=== PATIENT | female | born 1945 | race Caucasian/White ===

== ENCOUNTER 2017-12-26 09:04 | Outpatient (RCR) | payer MEDICARE, OTHER, SELFPAY ==
[2017-12-26 09:17] LABS: Prothrombin Time Fingerstick 46.8 SEC (11.9-14.4)
[2017-12-26 10:25] LABS: International Normalized Ratio 3.4
== END 2017-12-26 09:25 | disposition home or self-care (01) ==
LOC: MTLAB 09:04
PROVIDERS: Family Provider Family Medicine; PCP Family Medicine; Visit Provider Internal Medicine Cardiovascular Disease
DX: I48.0 Paroxysmal atrial fibrillation (principal); Z79.01 Long term (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 of anticoagulants
CPT/HCPCS: 36415; 36416; 85610

== ENCOUNTER 2018-01-14 11:41 | Outpatient (RCR) | payer MEDICARE, OTHER, SELFPAY ==
[2018-01-14 12:01] LABS: Prothrombin Time Fingerstick 35.3 SEC (11.9-14.4)
== END 2018-01-14 16:20 | disposition home or self-care (01) ==
LOC: MTLAB 11:41
PROVIDERS: Family Provider Family Medicine; PCP Family Medicine; Visit Provider Internal Medicine Cardiovascular Disease
DX: I48.0 Paroxysmal atrial fibrillation (principal); Z79.01 Long term (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 of anticoagulants
CPT/HCPCS: 36416; 85610

== ENCOUNTER 2018-02-10 11:22 | Outpatient (RCR) | payer MEDICARE, OTHER, SELFPAY ==
[2018-02-10 11:45] LABS: Prothrombin Time Fingerstick 41.4 SEC (11.9-14.4)
[2018-02-10 14:20] LABS: International Normalized Ratio 2.9; Prothrombin Time (Protime)PT. 30.1 SECONDS (11.7-14.9)
== END 2018-02-10 12:00 | disposition home or self-care (01) ==
LOC: MTLAB 11:22
PROVIDERS: Family Provider Family Medicine; PCP Family Medicine; Visit Provider Internal Medicine Cardiovascular Disease
DX: I48.0 Paroxysmal atrial fibrillation (principal); Z79.01 Long term (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 of anticoagulants
CPT/HCPCS: 36415; 36416; 85610

== ENCOUNTER 2018-03-14 12:59 | Outpatient (RCR) | payer MEDICARE, OTHER, SELFPAY ==
[2018-03-03 14:15] LABS: International Normalized Ratio 3.2; Prothrombin Time (Protime)PT. 32.7 SECONDS (11.7-14.9)
[2018-03-14 13:16] LABS: Prothrombin Time Fingerstick 27.6 SEC (11.9-14.4)
== END 2018-03-14 13:00 | disposition home or self-care (01) ==
LOC: MTLAB 12:59
PROVIDERS: Family Provider Family Medicine; PCP Family Medicine; Visit Provider Internal Medicine Cardiovascular Disease
DX: I48.91 Unspecified atrial fibrillation (principal); Z79.01 Long term (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 of anticoagulants
CPT/HCPCS: 36415; 36416; 85610

== ENCOUNTER 2018-04-17 14:23 | Outpatient (RCR) | payer MEDICARE, OTHER, SELFPAY ==
[2018-04-17 14:36] LABS: Prothrombin Time Fingerstick 29.4 SEC (11.9-14.4)
== END 2018-04-17 15:00 | disposition home or self-care (01) ==
LOC: MTLAB 14:23
PROVIDERS: Family Provider Family Medicine; PCP Family Medicine; Visit Provider Internal Medicine Cardiovascular Disease
DX: I48.91 Unspecified atrial fibrillation (principal); Z79.01 Long term (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 of anticoagulants
CPT/HCPCS: 36416; 85610

== ENCOUNTER 2018-05-26 15:05 | Outpatient (RCR) | payer MEDICARE, OTHER, SELFPAY ==
--- NOTE | 2018-05-08 11:25 | DT_ITS ---
This patient was seen during an EMR downtime May 05, 2018 - May 12, 2018. This patient may have a combination of paper and electronic documentation or all paper documentation. All documentation is viewable within the e-chart portion of [facility] for each patient visit.
[2018-05-12 10:40] LABS: Prothrombin Time Fingerstick 27.1 SEC (11.9-14.4)
[2018-05-26 15:16] LABS: Prothrombin Time Fingerstick 37.7 SEC (11.9-14.4)
== END 2018-05-26 16:00 | disposition home or self-care (01) ==
LOC: MTLAB 15:05
PROVIDERS: Family Provider Family Medicine; PCP Family Medicine; Visit Provider Internal Medicine Cardiovascular Disease
DX: I48.91 Unspecified atrial fibrillation (principal); Z79.01 Long term (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 of anticoagulants
CPT/HCPCS: 36416; 85610

== ENCOUNTER 2018-06-11 11:31 | Outpatient (RCR) | payer MEDICARE, OTHER, SELFPAY ==
[2018-06-11 11:45] LABS: Prothrombin Time Fingerstick 29.8 SEC (11.9-14.4)
== END 2018-06-11 13:00 ==
LOC: MTLAB 11:31
PROVIDERS: Family Provider Family Medicine; PCP Family Medicine; Visit Provider Internal Medicine Cardiovascular Disease
DX: I48.91 Unspecified atrial fibrillation (principal); Z79.01 Long term (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 of anticoagulants
CPT/HCPCS: 36416; 85610

== ENCOUNTER 2018-07-31 10:21 | Outpatient (RCR) | payer MEDICARE, OTHER, SELFPAY ==
[2018-07-31 10:36] LABS: Prothrombin Time Fingerstick 28.5 SEC (11.9-14.4)
== END 2018-07-31 12:00 | disposition home or self-care (01) ==
LOC: MTLAB 10:21
PROVIDERS: Family Provider Family Medicine; PCP Family Medicine; Visit Provider Internal Medicine Cardiovascular Disease
DX: I48.91 Unspecified atrial fibrillation (principal); Z79.01 Long term (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 of anticoagulants
CPT/HCPCS: 36416; 85610

== ENCOUNTER 2018-08-28 09:38 | Outpatient (RCR) | payer MEDICARE, OTHER, SELFPAY ==
[2018-08-28 09:51] LABS: Prothrombin Time Fingerstick 29.9 SEC (11.9-14.4)
== END 2018-08-28 11:00 | disposition home or self-care (01) ==
LOC: MTLAB 09:38
PROVIDERS: Family Provider Family Medicine; PCP Family Medicine; Visit Provider Internal Medicine Cardiovascular Disease
DX: I48.91 Unspecified atrial fibrillation (principal); Z79.01 Long term (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 of anticoagulants
CPT/HCPCS: 36416; 85610

== ENCOUNTER 2018-09-23 15:40 | Outpatient (RCR) | payer MEDICARE, OTHER, SELFPAY ==
[2018-09-23 15:56] LABS: Prothrombin Time Fingerstick 26.6 SEC (11.9-14.4)
== END 2018-09-23 17:00 | disposition home or self-care (01) ==
LOC: MTLAB 15:40
PROVIDERS: Family Provider Family Medicine; PCP Family Medicine; Referring Provider Internal Medicine Cardiovascular Disease; Visit Provider Internal Medicine Cardiovascular Disease
DX: I48.91 Unspecified atrial fibrillation (principal); Z79.01 Long term (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 of anticoagulants
CPT/HCPCS: 36416; 85610

== ENCOUNTER 2018-10-21 11:23 | Outpatient (RCR) | payer MEDICARE, OTHER, SELFPAY ==
[2018-10-21 11:36] LABS: Prothrombin Time Fingerstick 27.5 SEC (11.9-14.4)
== END 2018-10-21 12:00 | disposition home or self-care (01) ==
LOC: MTLAB 11:23
PROVIDERS: Family Provider Family Medicine; PCP Family Medicine; Referring Provider Internal Medicine Cardiovascular Disease; Visit Provider Internal Medicine Cardiovascular Disease
DX: I48.91 Unspecified atrial fibrillation (principal); Z79.01 Long term (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 of anticoagulants
CPT/HCPCS: 36416; 85610

== ENCOUNTER 2018-11-28 12:00 | Outpatient (RCR) | payer MEDICARE, OTHER, SELFPAY | END 2018-11-28 13:00 | disposition home or self-care (01) | LOC: MTLAB 12:00 | PROVIDERS: Family Provider Family Medicine; PCP Family Medicine; Referring Provider Internal Medicine Cardiovascular Disease; Visit Provider Internal Medicine Cardiovascular Disease | DX: I48.91 Unspecified atrial fibrillation (principal); Z79.01 Long term (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 of anticoagulants | CPT/HCPCS: 36416; 85610 ==

== ENCOUNTER 2018-12-24 11:59 | Outpatient (RCR) | payer MEDICARE, OTHER, SELFPAY ==
[2018-12-24 11:04] VITALS: BMI 41.0
[2018-12-24 13:05] LABS: Prothrombin Time (Protime)PT. 23.1 SECONDS (11.7-14.9)
[2018-12-24 13:26] LABS: Anion Gap 8 (5-15); BUN 22 mg/dL (7-18); Calcium,Total 9.1 mg/dL (8.5-10.1); Chloride 105 mmol/L (98-107); EST Glomerular Filtration Rate 57 mL/min (>60); Est Glom Filt Rate - Afr Amer 69 mL/min (>60); Glucose 97 mg/dL (74-106); Magnesium 2.2 mg/dL (1.6-2.6); Potassium 4.6 mmol/L (3.5-5.1); Sodium Level 142 mmol/L (136-145); Thyroid Stim Hormone (TSH) 2.15 uIU/mL (0.358-3.74)
--- OUTSIDE RECORDS SUMMARY | 2019-02-25 09:47 | XMS RPT_ITS ---
:1945 Author Organization OHIP Support Name Relationship Address Phone MADELAINE ULLOA Unavailable [address] + [place] [address] OSORIO, CARMEN Unavailable [address] + [place] [address] R Unavailable Unavailable Unavailable LAILA, MADELAINE Unavailable [address] + [place] [address] OSORIO, CARMEN Unavailable [address] + [place] [address] R Unavailable Unavailable Unavailable ALLSHDARRELL, MADELAINE Unavailable [address] + [place] [address] OSORIO, CARMEN Unavailable [address] + [place] [address] R Unavailable Unavailable Unavailable LAILA, MADELAINE Unavailable [address] + [place] [address] OSORIO, CARMEN Unavailable [address] + [place] [address] R Unavailable Unavailable Unavailable NALINISHDARRELL, MADELAINE Unavailable [address] + [place] [address] OSORIO, CARMEN Unavailable [address] + [place] [address] R Unavailable Unavailable Unavailable ALLSHOUSE, MADELAINE Unavailable [address] + [place] [address] OSORIO, CARMEN Unavailable [address] + [place] [address] R Unavailable Unavailable Unavailable ALLSHOUSE, MADELAINE Unavailable [address] + [place] [address] OSORIO, CARMEN Unavailable [address] + [place] [address] R Unavailable Unavailable Unavailable ALLSHOUSE, MADELAINE Unavailable [address] + [place] [address] OSORIO, CARMEN Unavailable [address] + [place] [address] R Unavailable Unavailable Unavailable ALLSHOUSE, MADELAINE Unavailable [address] + [place] [address] OSORIO, CARMEN Unavailable [address] + [place] [address] R Unavailable Unavailable Unavailable ALLSHOUSE, MADELAINE Unavailable [address] + [place] [address] OSORIO, CARMEN Unavailable [address] + [place] [address] R Unavailable Unavailable Unavailable ALLSHOUSE, FRANCISCO/JOELYN Unavailable [address] [phone] [place] [address] OSORIO, CARMEN Unavailable [address] + [place] [address] R Unavailable Unavailable Unavailable ALLSHOUSE, FRANCISCO/JOELYN Unavailable [address] [phone] [place] [address] OSORIO, CARMEN Unavailable [address] + [place] [address] R Unavailable Unavailable Unavailable ALLSHOUSE, FRANCISCO/JOELYN Unavailable [address] [phone] [place] [address] OSORIO, CARMEN Unavailable [address] + [place] [address] R Unavailable Unavailable Unavailable ALLSHOUSE, FRANCISCO/JOELYN Unavailable [address] [phone] [place] [address] OSORIO, CARMEN Unavailable . + ., . . R Unavailable Unavailable Unavailable Care Team Providers Name Role Phone Juni Epstein Attending Unavailable Juni Epstein Referring Unavailable Myles Lai Primary Care Unavailable Juni Epstein Attending Unavailable Myles Lai Referring Unavailable Lucian, Juni Attending Unavailable Lucian, Juni Referring Unavailable Ranney, Christopher Primary Care Unavailable Lucian, La Verkin Attending Unavailable Lucian, Juni Referring Unavailable Ranney, Christopher Primary Care Unavailable Lucian, Juni Attending Unavailable Lucian, La Verkin Referring Unavailable Ranney, Christopher Primary Care Unavailable Lucian, Juni Attending Unavailable Lucian, Juni Referring Unavailable Ranney, Christopher Primary Care Unavailable Lucian, Juni Attending Unavailable Lucian, La Verkin Referring Unavailable Ranney, Christopher Primary Care Unavailable Luanne Bautista Attending Unavailable Ranney, Christopher Referring Unavailable Ranney, Christopher Primary Care Unavailable Lucian, La Verkin Attending Unavailable Lucian, Juni Referring Unavailable Ranney, Christopher Primary Care Unavailable Lucian, Juni Attending Unavailable Lucian, La Verkin Referring Unavailable Ranney, Christopher Primary Care Unavailable Lucian, La Verkin Attending Unavailable Lucian, La Verkin Referring Unavailable Ranney, Christopher Primary Care Unavailable Lucian, La Verkin Attending Unavailable Lucian, La Verkin Referring Unavailable Ranney, Christopher Primary Care Unavailable Lucian, Juni Attending Unavailable Lucian, Juni Referring Unavailable [facility], [facility] Unavailable Lucian, La Verkin Attending Unavailable Lucian, La Verkin Referring Unavailable Ranney, [facility] Primary [facility] Unavailable PROBLEMS PROBLEMS DATE TYPE CONDITION / CODE ATTENDING STATUS SOURCE 12/24/2018 Unknown R53.83 - Other Lucian, Juni Active [facility] fatigue / Community R53.83(ICD-10) Hospital Repository 12/24/2018 Unknown R07.9 - Chest Lucian, La Verkin Active [place] pain, unspecified Community / R07.9(ICD-10) Hospital Repository 12/24/2018 Unknown I10 - Essential Lucian, Juni Active [facility] (primary) Community hypertension / Hospital I10(ICD-10) Repository 12/24/2018 Unknown I48.0 - Paroxysmal Lucian, Juni Active [facility] atrial Community fibrillation / Hospital I48.0(ICD-10) Repository 11/04/2018 Unknown I48.91 - Lucian, La Verkin Active [place] Unspecified atrial Community fibrillation / Hospital I48.91(ICD-10) Repository PROCEDURES PROCEDURES No Procedure Records FoundRESULTS RESULTS PROTHROMBIN TIME W/INR Collected: 12/24/2018 Status: F Source: RAJIV 12:06 PM [facility] REPOSITORY TYPE CODE TESTS RESULT OUT OF RANGE REFERENCE UNITS LAB L300.4150 11.7-14.9 SECONDS High PROTIME 23.1 LAB L300.4200 Normal INR 2.0 Performed By: #### L300.3900 #### [facility] [address] [place], [place], [address] BASIC METABOLIC Collected: 12/24/2018 Status: F Source: RAJIV PROFILE (BMP) 12:05 PM [facility] REPOSITORY TYPE CODE TESTS RESULT OUT OF RANGE REFERENCE UNITS LAB L501.0100 74-106 mg/dL Normal GLU 97 Result Comment: Please note revised GLUCOSE reference range effective 2018. LAB L501.1000 7-18 mg/dL High BUN 22 LAB L501.1100 0.55-1.02 mg/dL Normal CREAT,SERUM 1.00 Result Comment: The validity of the calculated GFR AND GFRAA in patients over 70 years has not been determined. Clinical correlation is essential. LAB L501.1110 >60 mL/min Low EST GFR 57 Result Comment: Non- GFR Calc LAB L501.1115 >60 mL/min Normal EST GFR - AA 69 Result Comment: GFR Calc LAB L501.1300 10-20 RATIO High BUN/CRE 22.0 LAB L501.2200 8.5-10.1 mg/dL CA Normal 9.1 LAB L501.5300 136-145 mmol/L NA Normal 142 LAB L501.5600 3.5-5.1 mmol/L K Normal 4.6 LAB L501.5900 98-107 mmol/L CL Normal 105 LAB L501.6100 21.0-32.0 mmol/L Normal CO2 29.0 LAB L501.6200 5-15 Normal GAP 8 Performed By: #### L500.2500, L501.5200, L501.9520 #### [facility] [address] [place], [address] MAGNESIUM Collected: 12/24/2018 Status: F Source: RAJIV 12:05 PM [facility] REPOSITORY TYPE CODE TESTS RESULT OUT OF RANGE REFERENCE UNITS LAB L501.5200 1.6-2.6 mg/dL Normal MG 2.2 Performed By: #### L500.2500, L501.5200, L501.9520 #### [facility] [address] [place], [address] THYROID STIM HORMONE Collected: 12/24/2018 Status: F Source: RAJIV (TSH) 12:05 PM [facility] [place] REPOSITORY TYPE CODE TESTS RESULT OUT OF RANGE REFERENCE UNITS LAB L501.9520 0.358-3.74 uIU/mL Normal TSH 2.15 Performed By: #### L500.2500, L501.5200, L501.9520 #### [facility] [address] [place], [address] CARDIOLOGY VISIT Observed: 12/24/2018 Status: F Source: RAJIV REPORT 11:45 AM [facility] REPOSITORY [facility] [address] [place] [address] OFFICE VISIT Date of Service: 12/24/18 MR#: [id number] Acct: [id number] Name: CHARLIE ULLOA Rep #: [id number] : 1945 Provider: Juni Epstein MD Age/Sex: 73/F [place] [facility] [place] Signed HPI HPI Chief Complaint: Follow up Details: CHARLIE ULLOA, is a 73 F who presents to the office today for a follow-up visit. She is a lady with a history of hypertension, hyperlipidemia, diabetes mellitus, status post gastric bypass surgery she returns for follow-up visit. She has been concerned about a headache she has had last week as well as noted elevated blood pressures. She has had some fatigue as well as lightheadedness. Her sister had cerebrovascular accidents from an aneurysm and she has been concerned about this. Her blood pressure had been previously well controlled at her last visit. She has not had any neck arm or jaw discomfort to suggest angina. She has had some chest discomfort in the center of the chest usually in the evenings when she appears to be relaxed. She does not appear to have had any palpitations. Her physical exam here today demonstrates clear lung lynch regular rate and rhythm and no pedal edema Intake Vital Signs12/24/18 Height 4 ft 11 in 12/24/18 Weight: 203 lb 12/24/18 Body Mass Index (BMI) 41.0 Intake Visit Reasons: severe CARDOZA, concerned re: BP; overdue for f/up Allergies No Known Allergies Allergy (Verified 12/24/18 11:02) Medications Acetaminophen [Pain Reliever] 1,000 mg PO QHS 03/02/17 [History Confirmed 12/24/18] Calcium Carbonate [Calcium] 600 mg PO DAILY 03/02/17 [History Confirmed 12/24/18] Cholecalciferol (Vitamin D3) [Vitamin D3] 400 unit PO DAILY 03/02/17 [History Confirmed 12/24/18] Melatonin 3 mg PO QHS 03/02/17 [History Confirmed 12/24/18] Multivit-Min/Iron/Folic/Lutein [Centrum Silver Women Tablet] 1 ea PO DAILY 03/02/17 [History Confirmed 12/24/18] buPROPion tablets [Wellbutrin tablets] 150 mg PO DAILY 03/02/17 [History Confirmed 12/24/18] metoprolol succinate ER 50 mg tablet,extended release 24 hr 50 mg PO QDAY #90 tab 12/11/17 [Rx Confirmed 12/24/18] warfarin 3 mg tablet 3 mg PO .COMPLEX #90 tab 05/26/18 [Rx Confirmed 12/24/18] escitalopram 5 mg tablet PO 30 Days #30 tab 12/24/18 [History Confirmed 12/24/18] ferrous sulfate 27 mg iron tablet 27 mg PO DAILY tab 12/24/18 [History Confirmed 12/24/18] gabapentin 300 mg capsule PO 30 Days #90 cap 12/24/18 [History Confirmed 12/24/18] losartan 50 mg tablet 50 mg PO DAILY #90 tab 12/24/18 [Rx Confirmed 12/24/18] [facility] Medical History Paroxysmal atrial flutter (Resolved) Essential (primary) hypertension (Chronic) Paroxysmal atrial fibrillation (Chronic) Obesity (Chronic) Spinal stenosis (Chronic) Type 2 diabetes mellitus (Chronic) Surgical History History of radiofrequency ablation procedure for cardiac arrhythmia (Resolved 03/20/11) History of back surgery (Resolved) History of gastric bypass (Resolved) History of tonsillectomy (Resolved) Family History Sister CVA (cerebral vascular accident) Father CAD (coronary artery disease) Hypertension Mother Hypertension CAD (coronary artery disease) Social History Smoking Status: Never smoker ROS Const Const: Positive for fatigue and headache(s) (C/O one headache last week and elevated BP); negative for weakness, difficulty sleeping, frequent falls or excessive sweating Eyes Eyes: Negative for loss of peripheral vision, transient loss of vision, blurry vision, tunnel vision or double vision ENT ENT: Positive for headache(s) (C/O one headache last week and elevated BP); negative for dizziness, Nosebleed/epistaxis or balance problems Cardio Chest Pain: Yes (new onset last 2 weeks) Frequency: weekly Character: tightness Onset: exercise Location: mid sternal Duration: minutes Exacerbation: activity Relieving: rest Palpitations: No Edema: None Muscle aches with walking: None Resp Respiratory: Positive for SOB with activity (SOB w/ exertion); negative for SOB at rest, SOB orthopnea\SOB lying down, paroxysmal nocturnal dyspnea or Cough GI GI: Negative nausea, heartburn, black,tarry stools or vomiting : Negative for hematuria Musc Musc: Negative for balance problems, muscle aches/ myalgia, muscle weakness or joint pain Skin Skin: Negative non-healing lesions, unusual bruising or rash Neuro Neuro: Positive for headache(s) (C/O one headache last week and elevated BP) and lightheadedness; negative for weakness, frequent falls, blurry vision, double vision, dizziness, orthostatic symptoms, near syncope, syncope or lack of coordination [place] Hematologic/Lymphatic: Negative for easy bruising or easy bleeding Endo Endo: Positive for fatigue; negative for excessive sweating or increased thirst/drinking Psych Psych: Negative for anxiety or depression Allergy Allergy/Immunology: Negative for hives, Negative for rash Cardiology Exam Const Appearance: cooperative, healthy appearing, well developed, well groomed and no acute distress Nutritional Appearance: well nourished and average body habitus Orientation: alert, awake and oriented x3 Head Head: normal to inspection, normocephalic and atraumatic Ears: hearing grossly normal bilaterally and external ears normal Nose: external nose normal, nasal mucous membranes and turbinates normal, nares normal, septum normal, no nasal discharge Face and Sinus: face symmetric Mouth: oral mucosae normal, tongue normal, oropharynx normal and moist mucous membranes Teeth and gingiva: dentition normal Throat: posterior oropharynx normal, tonsils normal and uvula midline Eyes General: appearance normal, both eyes and all related structures Eyelids: eyelids normal Conjunctivae: conjunctivae normal Pupils: PERRL, normal by confrontation and accommodation normal EOM: EOM intact bilaterally Neck Neck: normal visual inspection, trachea midline and no JVD JVD: +5 Carotids: normal carotid upstroke and bounding pulses Chest Chest inspection: normal inspection of the chest, symmetric chest movement and normal respiratory effort Auscultation: Bilateral: Clear to Auscultation Cardio Palpation: normal PMI Rate: regular rate Rhythm: regular rhythm Heart sounds: S1 normal, S2 normal and normal, physiologic split S2; negative rub, gallop or murmur GI GI: normal to inspection, soft, no hepatosplenomegaly and bowel sounds present Neuro General: alert, awake, oriented x3, no focal sensory deficit, gait normal and moves all extremities Skin Skin: no rashes or lesions noted Extremities Pulses: Normal: Right Femoral Pulse, Left Femoral Pulse, Right Dorsalis Pedis Pulse, Left Dorsalis Pedis Pulse, Right Posterior Tibial Pulse, Left Posterior Tibial Pulse, Right Radial Pulse, Left Radial Pulse Lower Extremity Edema: None: Bilateral Musculoskel Musculoskeletal: No joint tenderness Psych Psychological: normal affect Assessment AND Plan 1. Essential (primary) hypertension I10 Plan She does have a history of hypertension which appears to be suboptimally controlled my recommendation will be to add losartan 50 mg a day to her current regimen and obtain a chemistry profile. An echocardiogram should be performed to assess her left ventricular function. She should continue to check her blood pressures at home and keep us apprised of any further developments. Orders Orders: 2. Paroxysmal atrial fibrillation I48.0 Plan She does have a history of paroxysmal atrial fibrillation, with no recent episodes. She remains on anticoagulation as well as aggressive blood pressure management. Once again an echocardiogram will be performed to assess her atrial size. Orders Orders: 3. Chest pain R07.9 Plan She has a history of chest discomfort the etiology is unclear. Due to her age, risk factors of diabetes and hypertension I would recommend that we obtain a pharmacologic myocardial perfusion stress test. Depending on the findings further recommendations will be made. Thank you for allowing me to participate in the care of your patient. Please don't hesitate to call if any issues arise Orders Orders: Plan Detail Other Orders Orders: Other Medications New: Follow Up 3 Months (mmm) Coding Level of Care Code Off vis,est,level 4 Diagnoses Essential (primary) hypertension I10 Paroxysmal atrial fibrillation I48.0 Chest pain R07.9 Coding Level of Care Code Off vis,est,level 4 Diagnoses Essential (primary) hypertension I10 Paroxysmal atrial fibrillation I48.0 Chest pain R07.9 12/24/18 1145 <Electronically signed by Juni Epstein MD> Date Juni Epstein MD Cosigner Signature: Date (if applicable) CC: Myles Lai MD PROTIME W/INR Collected: 11/28/2018 Status: F Source: RAJIV FINGERSTICK 12:10 PM [facility] REPOSITORY TYPE CODE TESTS RESULT OUT OF REFERENCE UNITS RANGE LAB L9200.1001 11.9-14.4 SEC High PROTIME ISTAT 29.0 Result Comment: Reference Range 11.9 - 14.4 LAB L9200.2000 Normal INR ISTAT 2.50 Result Comment: Critical Value > 3.5 Performed By: #### L9200.0000 #### [facility] Point of Care [address] [place] [address] PROTIME W/INR Collected: 10/21/2018 Status: F Source: RAJIV FINGERSTICK 11:30 AM [facility] REPOSITORY TYPE CODE TESTS RESULT OUT OF REFERENCE UNITS RANGE LAB L9200.1001 11.9-14.4 SEC High PROTIME ISTAT 27.5 Result Comment: Reference Range 11.9 - 14.4 LAB L9200.2000 Normal INR ISTAT 2.40 Result Comment: Critical Value > 3.5 Performed By: #### L9200.0000 #### [facility] Point of Care [address] [place] [address] PROTIME W/INR Collected: 09/23/2018 Status: F Source: RAJIV FINGERSTICK 3:48 PM [facility] REPOSITORY TYPE CODE TESTS RESULT OUT OF REFERENCE UNITS RANGE LAB L9200.1001 11.9-14.4 SEC High PROTIME ISTAT 26.6 Result Comment: Reference Range 11.9 - 14.4 LAB L9200.2000 Normal INR ISTAT 2.30 Result Comment: Critical Value > 3.5 Performed By: #### L9200.0000 #### [facility] Point of Care [address] [place] [address] PROTIME W/INR Collected: 08/28/2018 Status: F Source: RAJIV FINGERSTICK 9:44 AM [facility] REPOSITORY TYPE CODE TESTS RESULT OUT OF REFERENCE UNITS RANGE LAB L9200.1001 11.9-14.4 SEC High PROTIME ISTAT 29.9 Result Comment: Reference Range 11.9 - 14.4 LAB L9200.2000 Normal INR ISTAT 2.60 Result Comment: Critical Value > 3.5 Performed By: #### L9200.0000 #### [facility] Point of Care [address] [place] [address] PROTIME W/INR Collected: 07/31/2018 Status: F Source: RAJIV F[place]ICK 10:31 AM [facility] REPOSITORY TYPE CODE TESTS RESULT OUT OF REFERENCE UNITS RANGE LAB L9200.1001 11.9-14.4 SEC High PROTIME ISTAT 28.5 Result Comment: Reference Range 11.9 - 14.4 LAB L9200.2000 Normal INR ISTAT 2.50 Result Comment: Critical Value > 3.5 Performed By: #### L9200.0000 #### [facility] [place] [address] PROTIME W/INR Collected: 06/11/2018 Status: F Source: RAJIV F[place]ERSTICK 11:38 AM [facility] REPOSITORY TYPE CODE TESTS RESULT OUT OF REFERENCE UNITS RANGE LAB L9200.1001 11.9-14.4 SEC High PROTIME ISTAT 29.8 Result Comment: Reference Range 11.9 - 14.4 LAB L9200.2000 Normal INR ISTAT 2.60 Result Comment: Critical Value > 3.5 Performed By: #### L9200.0000 #### [facility] Point of Care [address] [place] [address] PROTIME W/INR Collected: 05/26/2018 Status: F Source: RAJIV F[place]ICK 3:10 PM [facility] REPOSITORY TYPE CODE TESTS RESULT OUT OF REFERENCE UNITS RANGE LAB L9200.1001 11.9-14.4 SEC High PROTIME ISTAT 37.7 Result Comment: Reference Range 11.9 - 14.4 LAB L9200.2000 Normal INR ISTAT 3.30 Result Comment: Critical Value > 3.5 Performed By: #### L9200.0000 #### [facility] Point of Care [address] [place] [address] DOWNTIME REPORT Observed: 05/22/2018 Status: F Source: RAJIV 12:23 PM [facility] Medical Records Department [address] [facility] [place] [address] Downtime Report MR#: [id number] Acct: [id number] Name: CHARLIE ULLOA Rep #: [id number] : 1945 72 From: Beto Osorio PCP: Myles Lai MD Status: REG RCR This patient was seen during an EMR downtime May 05, 2018 - May 12, 2018. This patient may have a combination of paper and electronic documentation or all paper documentation. All documentation is viewable within the e-chart portion of [employer] for each patient visit. PROTIME W/INR Collected: 05/08/2018 Status: F Source: RAJIV [place] 11:31 AM [facility] REPOSITORY TYPE CODE TESTS RESULT OUT OF REFERENCE UNITS RANGE LAB L9200.1001 11.9-14.4 SEC High PROTIME ISTAT 27.1 Result Comment: Reference Range 11.9 - 14.4 LAB L9200.2000 Normal INR ISTAT 2.40 Result Comment: Critical Value > 3.5 Performed By: #### L9200.0000 #### [facility] Point of Care [address] [place] [address] PROTIME W/INR Collected: 04/17/2018 Status: F Source: RAJIV FINGERSTICK 2:28 PM [facility] REPOSITORY TYPE CODE TESTS RESULT OUT OF REFERENCE UNITS RANGE LAB L9200.1001 11.9-14.4 SEC High PROTIME ISTAT 29.4 Result Comment: Reference Range 11.9 - 14.4 LAB L9200.2000 Normal INR ISTAT 2.60 Result Comment: Critical Value > 3.5 Performed By: #### L9200.0000 #### [facility] Point of Care [address] [place] [address] PROTIME W/INR Collected: 03/14/2018 Status: F Source: RAJIV FINGERSTICK 1:10 PM [facility] REPOSITORY TYPE CODE TESTS RESULT OUT OF REFERENCE UNITS RANGE LAB L9200.1001 11.9-14.4 SEC High PROTIME ISTAT 27.6 Result Comment: Reference Range 11.9 - 14.4 LAB L9200.2000 Normal INR ISTAT 2.40 Result Comment: Critical Value > 3.5 Performed By: #### L9200.0000 #### [facility] Point of Care [address] [place] [address] [place] [address] PROTHROMBIN TIME W/INR Collected: 03/03/2018 Status: F Source: RAJIV 1:05 PM [facility] REPOSITORY TYPE CODE TESTS RESULT OUT OF RANGE REFERENCE UNITS LAB L300.4150 11.7-14.9 SECONDS High PROTIME 32.7 LAB L300.4200 Normal INR 3.2 Performed By: #### L300.3900 #### [facility] [address] [place], [address] PROTHROMBIN TIME W/INR Collected: 02/10/2018 Status: F Source: RAJIV 11:47 AM [facility] REPOSITORY TYPE CODE TESTS RESULT OUT OF RANGE REFERENCE UNITS LAB L300.4150 11.7-14.9 SECONDS High PROTIME 30.1 LAB L300.4200 Normal INR 2.9 Performed By: #### L300.3900 #### [facility] [address] [place], [address] PROTIME W/INR Collected: 02/10/2018 Status: F Source: RAJIV FINGER[place]ICK 11:38 AM [facility] REPOSITORY TYPE CODE TESTS RESULT OUT OF REFERENCE UNITS RANGE LAB L9200.1001 11.9-14.4 SEC High PROTIME ISTAT 41.4 Result Comment: Reference Range 11.9 - 14.4 LAB L9200.2000 High alert INR ISTAT 3.70 Result Comment: Critical Value > 3.5 Performed By: #### L9200.0000 #### [facility] Point of Care [address] [place] [address] PROTIME W/INR Collected: 01/14/2018 Status: F Source: RAJIV FINGER[place]ICK 11:54 AM [facility] REPOSITORY TYPE CODE TESTS RESULT OUT OF REFERENCE UNITS RANGE LAB L9200.1001 11.9-14.4 SEC High PROTIME ISTAT 35.3 Result Comment: Reference Range 11.9 - 14.4 LAB L9200.2000 Normal INR ISTAT 3.10 Result Comment: Critical Value > 3.5 Performed By: #### L9200.0000 #### [facility] Point of Care [address] [place] [address] ALLERGIES ALLERGIES DATE TYPE / CODE NAME / CODE REACTION SEVERITY SOURCE 12/24/2018 Drug No Known Unknown [facility] Allergy/4160 Allergies/F00 Hospital 67787(SNOMED [id number](RXNOR Repository CT) M) ENCOUNTERS ENCOUNTERS ADMIT/DISCHARGE ACCOUNT ADMITTING ENCOUNTER LOCATION SOURCE NUMBER CLASS 12/24/2018 [id number] Ambulatory [facility] [place] 2 [facility] ing:[facility] Repository 12/24/2018/ [id number] Ambulatory BMSBuilding:B [place] [facility] 7 [facility] Repository 11/28/2018/ [id number] Ambulatory Rajiv Rajiv 8 1 [facility] ing:[facility] Repository 10/21/2018/ [id number] Ambulatory Rajiv Rajiv 8 1 [facility] ing:[facility] Repository 09/23/2018/ [id number] Ambulatory [facility]iv [place] 8 6 [facility] ing:[facility] Repository 08/28/2018/ [id number] Ambulatory [place] Rajiv 8 1 [facility] ing:[facility] Repository 07/31/2018/ [id number] Ambulatory [place] [facility] 5 [facility] ing:MTLAB Repository 06/11/2018/ [id number] Ambulatory Rajiv Bulver[place] 8 4 [facility] ing:MTLAB Repository 05/26/2018/ [id number] Ambulatory [place] Rajiv 8 9 [facility] ing:MTLAB Repository 05/09/2018/ [id number] Ambulatory BMSBuilding:B [place] 8 1 [facility] Repository 04/17/2018/ [id number] Ambulatory [place] Rajiv 8 5 [facility] ing:MTLAB Repository 03/14/2018/ [id number] Ambulatory Bulverde Bulverde 8 2 [facility] ing:MTLAB Repository 02/10/2018/ [id number] Ambulatory Bulverde Bul[place] 8 7 [facility] ing:MTLAB Repository 01/14/2018/ [id number] Ambulatory Rajiv Rajiv 8 7 [facility] ing:MTLAB Repository PAYERS PAYERS ENCOUNTER GUARANTOR PAYER SUBSCRIBER SOURCE 12/24/2018 CHARLIE Jane Primary CHARLIE Vance [id number] W Insurance:MEDICARE ALLSHOUSEDOB: Community [address] [place]Policy [id number] Number[place] Repository [address]Oku: [phone] [id number] [phone] () Date:2018-01-03 12/24/2018 Secondary CHARLIE Vance Insurance:NEW ERA ALLSHOUSEDOB: Community LIFE INSURANCE [id number] [facility] COP[facility]icy Number: Repository [id number] Date:2406-41-27[address] [address]TQ: 12/24/2018 Tertiary NOT GIVENUNK Rajiv Insurance:SELF PAY [facility] Number: Effective Repository Date:2018-12-01 12/24/2018 CHARLIE Jane Primary CHARLIE Jane Rajiv [id number] W Insurance:MEDICARE ALLSHOUSEDOB: Community [address] A olicy [id number] [place] Number: Repository [address]Qek: [phone] [id number] [phone] () Date:2018-12-18 12/24/2018 Secondary CHARLIE M Bulverde Insurance:NEW ERA ALLSHOUSEDOB: Community LIFE INSURANCE [id number] Hospital COPolicy Number: Repository [id number] Date:4345-14-92DV [address] [place] [address]JT: 12/24/2018 Tertiary NOT GIVENUNK Rajiv Insurance:SELF PAY [facility] Number: Effective Repository Date:2018-12-24 11/28/2018 CHARLIE Jane Primary CHARLIE Jane Bulverde [id number] W Insurance:MEDICARE ALLSHOUSEDOB: Community [address] [place] [address] [facility] [id number] Number[place] Repository [address]Jfy: [phone] [id number] [phone] () Date:2018-01-03 11/28/2018 Secondary CHARLIE M Bulverde Insurance:NEW ERA ALLSHOUSEDOB: Community [employer] INSURANCE [id number] [facility] COPolicy Number: Repository [id number] Date:9411-45-07XV [address] [place] [address]WG: 11/28/2018 Tertiary NOT GIVENUNK Bulverde Insurance:SELF PAY [facility] Number: Effective Repository Date:2018-11-04 10/21/2018 CHARLIE Jane Primary CHARLIE Jane Rajiv [id number] W Insurance:MEDICARE ALLSHOUSEDOB: Community [address] A [facility] [id number] Number[place] Repository [address]Mnt: 71 [id number] [phone] (HP) Date:2018-01-03 10/21/2018 Secondary CHARLIE Vance Insurance:NEW ERA ALLSHOUSEDOB: Community [employer] INSUR[employer] [id number] [facility] COPolicy Number: Repository [id number] Date:6032-52-18GE [address] [place] [address]DR: 10/21/2018 Tertiary NOT GIVENUNK Bulverde Insurance:SELF PAY [facility]: Effective Repository Date:2018-10-02 09/23/2018 CHARLIE Jane Primary CHARLIE Vance [id number] W Insurance:MEDICARE ALLSHOUSEDOB: [place] [address] [place] [address] [facility] [id number] Number[place] Repository [address]Rar: [phone] [id number] [phone] () Date:2018-01-03 09/23/2018 Secondary CHARLIE Vance Insurance:NEW ERA ALLSHOUSEDOB: Community [employer] [id number] [facility] COPolicy Number: Repository [id number] Date:9060-75-66NX [address] [place] [address]ZK: 09/23/2018 Tertiary NOT GIVENUNK Bul[place] Insurance:SELF PAY [facility] Number: Effective Repository Date:2018-09-02 08/28/2018 CHARLIE Jane Primary CHARLIE Vance [id number] W Insurance:MEDICARE ALLSHOUSEDOB: Community [address] [place] [address] [facility] [id number] Number[place] Repository [address]Him: [phone] [id number] [phone] () Date:2018-01-03 08/28/2018 Secondary CHARLIE Vance Insurance:NEW ERA ALLSHOUSEDOB: Community [employer] [id number] [facility] COPolicy Number: Repository [id number] Date:4195-39-12PB [address] [place] [address]GW: 08/28/2018 Tertiary NOT GIVENUNK Bul[place] Insurance:SELF PAY [facility] Number: Effective Repository Date:2018-08-06 07/31/2018 CHARLIE Jane Primary CHARLIE Vance [id number] W Insurance:MEDICARE ALLSHOUSEDOB: Community [address] A [facility] [id number] Number[place] Repository [address]Rda: [phone] [id number] [phone] () Date:2018-01-03 07/31/2018 Secondary CHARLIE M Rajiv Insurance:NEW ERA ALLSHOUSEDOB: Community [employer] [id number] Hospital COPolicy Number: Repository [id number] Date:4523-04-87PV [address] [place] [address]ZB: 07/31/2018 Tertiary NOT GIVENUNK [place] Insurance:SELF PAY [facility] Number: Effective Repository Date:2018-07-04 06/11/2018 CHARLIE Jane Primary CHARLIE Astorgaoster [id number] W Insurance:MEDICARE ALLSHOUSEDOB: [place] [address] [place] [address] [facility] [id number] Number[place] Repository [address]Cer: [phone] [id number] [phone] () Date:2018-01-03 06/11/2018 Secondary CHARLIE M Rajiv Insurance:NEW ERA ALLSHOUSEDOB: Community [employer] [id number] Hospital COP[facility]icy Number: Repository [id number] Date:5616-83-68BH [address] [place] [id number]: 06/11/2018 Tertiary NOT GIVENUNK [place] Insurance:SELF PAY [facility] Number: Effective Repository Date:2018-05-30 05/26/2018 CHARLIE Jane Primary CHARLIE Vance [id number] W Insurance:MEDICARE ALLSHOUSEDOB: Community [address] A [facility] [id number] Number[place] Repository [address]Emg: [phone] [id number] [phone] () Date:2018-01-03 05/26/2018 Secondary CHARLIE M Rajiv Insurance:NEW ERA ALLSHOUSEDOB: Community [employer] [id number] [facility] COPolicy Number: Repository [id number] Date:4055-05-90HG [address] [place] [address]WS: 05/26/2018 Tertiary NOT GIVENUNK Rajiv Insurance:SELF PAY [facility] Number: Effective Repository Date:2018-05-01 05/09/2018 CHARLIE Jane Primary CHARLIE Jane Rajiv [id number] W Insurance:MEDICARE ALLSHOUSEDOB: Community [address] A [facility] [id number] [place] Number: Repository [address]Ioz: [phone] [id number] [phone] () Date:2017-11-04 05/09/2018 Secondary CHARLIE Jane Rajiv Insurance:NEW ERA ALLSHOUSEDOB: Community [employer]UR[employer] [id number] [facility] COPolicy Number: Repository [id number] Date:6425-52-97JD [address] [place] [address]SF: 05/09/2018 Tertiary NOT GIVENUNK [place] Insurance:SELF PAY [facility] Number: Effective Repository Date:2018-05-16 04/17/2018 Charlie Jane Primary Charlie Astorgaoster [id number] W Insurance:MEDICARE AllshouseDOB: Community [facility] PART A [facility] [id number] Indian Dental [facility] [place] Number: Repository [address]Kap: [phone] [id number] [phone] () Date:2018-01-03 04/17/2018 Secondary Charlie Jane Bul[place] Insurance:NEW ERA AllshouseDOB: Community [employer]UR[employer] [id number] [facility] COPolicy Number: Repository [id number] Date:5160-21-04HY [address] [place] [address]UO: 04/17/2018 Tertiary NOT GIVENUNK [place] Insurance:SELF PAY [facility] Number: Effective Repository Date:2018-04-01 03/14/2018 Charlie M Primary Charlie Astorgaoster [id number] W Insurance:MEDICARE AllshouseDOB: Community [address] [facility] [id number] Number[place] Repository [address]Gem: [phone] [id number] [phone] () Date:2018-01-03 03/14/2018 Secondary Charlie Astorgaoster Insurance:NEW ERA AllshouseDOB: Community [employer] [id number] Hospital COPolicy Number: Repository [id number] Date:2238-57-45VP [address] [address]HF: 03/14/2018 Tertiary NOT GIVENUNK [place] Insurance:SELF PAY [facility] Number: Effective Repository Date:2018-03-03 02/10/2018 Charlie M Primary Charlie Astorgaoster [id number] W Insurance:MEDICARE AllshouseDOB: [facility] [address] PART A [facility] [id number] [facility] Number: Repository [address]Cqf: [phone] [id number] [phone] () Date:2018-01-03 02/10/2018 Secondary Charlie Astorgaoster Insurance:NEW ERA AllshouseDOB: Community [employer] [id number] Hospital COPolicy Number: Repository [id number] Date:2407-47-37EY [address] [address]XT: 02/10/2018 Tertiary NOT GIVENUNK Rajiv Insurance:SELF PAY [facility] Number: Effective Repository Date:2018-01-29 01/14/2018 Charlie Jane Primary Charlie Astorgaoster [id number] W Insurance:MEDICARE AllshouseDOB: [facility] [address] PART A [facility] [id number] Number: Repository [address]Tfj: [phone] [id number] [phone] () Date:2018-01-03 01/14/2018 Secondary Charlie Buck Bulver[place] Insurance:NEW ERA AllshouseDOB: Community [employer] [id number] Hospital COPolicy Number: Repository [id number] Date:9584-70-16VF [address] [address]YL: 01/14/2018 Tertiary NOT GIVENERIC Vance Insurance:SELF PAY [facility] Number: Effective Repository Date:2018-01-03
== END 2018-12-24 13:00 | disposition home or self-care (01) ==
LOC: MTLAB 11:59
PROVIDERS: Family Provider Family Medicine; PCP Family Medicine; Referring Provider Internal Medicine Cardiovascular Disease; Visit Provider Internal Medicine Cardiovascular Disease
DX: I48.91 Unspecified atrial fibrillation (principal); R53.83 Other fatigue; I48.0 Paroxysmal atrial fibrillation; I10 Essential (primary) hypertension; Z79.01 Long term (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 of anticoagulants
CPT/HCPCS: 36415; 80048; 83735; 84443; 85610

== ENCOUNTER → 2019-01-05 06:11 | Outpatient (CLI) | payer MEDICARE, OTHER, SELFPAY ==
[2018-12-24 11:04] VITALS: BMI 41.0
--- NOTE | 2019-01-05 06:13 | ECHOD_ITS ---
Reason For Study: Afib Procedure This was a 2D Doppler, Color Flow transthoracic echocardiogram. Exam performed in department. Left Ventricle Normal LV size. Left ventricular systolic function is normal. The estimated ejection fraction is 65 %. Stage 1 diastolic dysfunction. No regional wall motion abnormalities noted. Right Ventricle Normal RV size. Normal systolic function. Atria Normal left atrium. Normal right atrium. Mitral Valve Normal mitral valve. Tricuspid Valve Normal tricuspid valve. Aortic Valve Normal aortic valve. Pulmonic Valve Normal pulmonic valve. Great Vessels Normal aortic root. The pulmonary artery is normal size. Normal inferior vena cava. Pericardium/Pleural No pericardial effusion. MMode/2D Measurements & Calculations LVIDd: 5.0 cm IVSd: 1.4 cm Ao root diam: 3.9 cm LVIDs: 2.8 cm LVPWd: 1.0 cm RVDd: 2.9 cm FS: 43.5 % LAV(MOD-bp): 40.0 ml LVAd ap4: 23.2 cm2 SV(MOD-sp4): 39.5 ml LAV(MOD-bp) Indexed: 22.0 ml/m2 EDV(MOD-sp4): 58.4 ml LAV(MOD-sp2): 49.9 ml EDV(sp4-el): 58.9 ml LAV(MOD-sp4): 30.3 ml LVAs ap4: 11.9 cm2 ESV(MOD-sp4): 18.9 ml ESV(sp4-el): 18.6 ml EF(MOD-sp4): 67.6 % EF(sp4-el): 68.4 % SV(sp4-el): 40.3 ml LA A4 area: 12.9 cm2 LA dimension(2D): 3.4 cm RA A4 area: 12.0 cm2 Doppler Measurements & Calculations MV E max steve: 78.6 cm/sec Lat Peak E' Steve: 7.0 cm/sec Med Peak E' Steve: 5.9 cm/sec MV A max steve: 102.1 cm/sec E/E' lat: 11.3 E/E' med: 13.4 MV E/A: 0.77 Ao V2 max: 171.7 cm/sec AI max steve: 453.8 cm/sec LV V1 max: 119.3 cm/sec Ao max P.8 mmHg AI max P.4 mmHg LV V1 max P.7 mmHg Ao V2 mean: 121.9 cm/sec Ao mean P.5 mmHg AI dec slope: 222.3 cm/sec2 Ao V2 VTI: 41.5 cm AI P1/2t: 597.9 msec PA V2 max: 62.1 cm/sec Interpretation Summary Normal LV size. Left ventricular systolic function is normal. The estimated ejection fraction is 65 %. Stage 1 diastolic dysfunction. Ordering Physician: Juni Epstein Referring Physician: Myles Lai Performed By: Laila Kamara, REBECCA, RVT
--- NOTE | 2019-01-05 09:15 | STRESSREP ---
Stress Test Report Pharmacologic myocardial perfusion stress test. 73-year-old lady with a history of chest pain. Medications: Wellbutrin, metoprolol, Coumadin, losartan. Stress protocol: Resting EKG demonstrates normal sinus rhythm with a rate of 59 bpm resting blood pressure 176/100 mmHg. 0.4 mg of regadenoson was infused per usual protocol followed by rapid intravenous saline flush injection continuous EKG monitoring was performed. The maximum heart rate attained was 78 bpm which was 53% of maximum predicted heart rate the maximum workload was 1 metabolic equivalent. At rest there were no ST or T wave changes noted suggest ischemia at peak infusion nonspecific ST-T wave changes were noted with normally the criteria for ischemia. No clinical angina was noted. The resting blood pressure was 176 of 100 mmHg with a final blood pressure 148/88 mmHg. Myocardial perfusion protocol. 14.3 mCi of technetium 99m sestamibi was injected at rest. 0.4 mg of regadenoson was infused per usual protocol. At peak infusion 44.8 mCi of technetium 99m sestamibi was injected stress images were obtained stress and rest images were reconstructed and compared in the short axis vertical and horizontal long axis. Gated images were also obtained Perfusion SPECT analysis: Review of the stress images demonstrate normal uptake of tracer noted in all areas of the myocardium. The resting images similarly demonstrate normal uptake of tracer noted in all areas of the myocardium. No areas of reversibility are noted suggest ischemia no previous infarct is noted. This is a low risk scan. Gated SPECT analysis: The gated ejection fraction is noted to be 81%. Conclusion: Normal pharmacologic myocardial perfusion stress test. Preserved ejection fraction.
== END ==
PROVIDERS: Family Provider Family Medicine; PCP Family Medicine; Referring Provider Internal Medicine Cardiovascular Disease; Visit Provider Internal Medicine Cardiovascular Disease
DX: R07.9 Chest pain, unspecified (principal); I48.91 Unspecified atrial fibrillation; I48.92 Unspecified atrial flutter
CPT/HCPCS: 78452; 93017; 93306; A9500; A4216; J2785

== ENCOUNTER 2019-01-20 18:16 | Emergency (ER) | payer MEDICARE, OTHER, SELFPAY ==
[2019-01-20 18:17] VITALS: BP 148/91; PULSE 67; RESP 16; TEMP 36.6; O2SAT 95; BMI 42.6
--- NOTE | 2019-01-20 19:03 | CT_ITS ---
STUDY: CT BRAIN WITHOUT CONTRAST REASON FOR EXAM: Female, 73 years old. Fall RADIATION DOSAGE (If Supplied By Facility): CTDIvol = ( 44.99 ) mGy, DLP = ( 796.11 ) mGycm TECHNIQUE: Transaxial CT imaging of the brain was performed without administration of intravenous contrast material. Individualized dose optimization techniques were used for this CT. COMPARISON: None. FINDINGS: Normal soft tissue structures. Normal calvarium. Normal size ventricles and extra-axial spaces for the patient's age. Normal white matter tracts of the cerebral hemispheres. Normal basal ganglia and thalami. Normal brainstem. Normal cerebellum. There is no intracranial hemorrhage. There are no findings of an acute ischemic infarction. Normal visualized paranasal sinuses. CT/Brain/Head without Contrast IMPRESSION: Normal unenhanced CT scan of the brain. Electronically Signed: Iggy Zimmer DO at 20:08 EST Tel [phone], Service support ,
--- NOTE | 2019-01-20 19:04 | RAD_ITS ---
STUDY: X-RAY - RIGHT TIBIA AND FIBULA REASON FOR EXAM: Female, 73 years old. Fall TECHNIQUE: 2 view(s) of the tibia and fibula were obtained. COMPARISON: None. FINDINGS: Normal visualized tibia. Normal visualized fibula. There is a partially visualized knee prosthesis. The soft tissue structures are unremarkable. RAD/Tibia & Fibula 2 Views IMPRESSION: No acute bony injury of the tibia and fibula. Electronically Signed: Iggy Zimmer DO at 20:12 EST Tel [phone], Service support ,
--- NOTE | 2019-01-20 19:05 | ED.VISSUMM ---
- ER Visit Summary Date of Service: 01/20/19 Chief Complaint: Status post fall with right lower leg discomfort and headache History of Present Illness: The patient is a 73 F on Coumadin. Also recently been changing and adjusting her blood pressure medications. Patient was attempting it in a vehicle yesterday and fell. Complaining of right lower leg pain. She is does not think she hit her head but today she developed a frontal and posterior headache. She denies any recent illness. She denies nausea, vomiting and diarrhea. She did take Tylenol for her headache. Without relief. Physical Examination: Elderly female no acute distress. Vital signs are stable. She is afebrile. Initial blood pressure 148/91. HEENT exam pupils round reactive light. No facial droop. Normal speech. No trauma to her face or scalp. Nontender. No hematomas. C-spine nontender. Trachea midline. Normal range of motion. Lungs clear to auscultation bilaterally. Heart regular rhythm rate about 65 with a 4/6 systolic ejection murmur. Chest wall nontender no signs of trauma. Abdomen soft and nontender. Normal bowel sounds no peritoneal signs. Pelvic girdle intact. Extremities moves all 4. Neurovascular intact. Normal contracting analyst strength. Both wrists, elbows and shoulders are nontender normal range there is no deformities or bruising. Back is nontender. Spine is nontender. Her right lower leg on the midportion of her right lateral calf there is a soft tissue hematoma. No gross bony deformity or bony tenderness. Bilateral hips, knees and ankles are nontender with normal range of motion. Dorsi and plantar flexion is intact. She can lift either leg. She can flex and extend both hips and knees. Neurologically she is awake and alert with no focal motor deficits. She knows day, month and year. Test Results: CT of the patient's brain without contrast shows no acute abnormality as read by the radiologist and viewed by me. No signs of acute bleed. Right tibia and fibula x-ray 2 views shows no acute fracture. CBC White count of 5. H&H of 12 and 39. BMP unremarkable with a normal creatinine and gap. PT is 28 and 2.7 is the INR. Emergency Department Course and Treatment: Elderly female with fall unsure if she had a head injury but she is on Coumadin and has a headache. Repeat exam patient is doing well at 2218. Exam is normal and unchanged. She has full range of motion of the right shoulder and there is no tenderness to the right arm. I reevaluate her right lower leg she has a subcu hematoma but is not getting significantly worse. She was instructed to hold her Coumadin tonight. Restarted tomorrow. She already has an appointment to see her primary care physician Dr. Myles Lai tomorrow. I went over all test results with the patient and her family. Treatment Plan: Hold Coumadin tonight. Ice and elevate the right leg. Follow-up with your PCP. Disposition: Discharge Impression: Status post fall Acute headache Right lower extremity soft tissue hematoma Anticoagulated on warfarin with an INR of 2.7 This note was generated with [employer] dictation software. It may contain incorrect words, spelling, and punctuation that were not noted in review of the chart prior to signing ED Disposition - Plan for ED Patient: Referrals: J Luis Lai MD [Primary Care Provider] -
--- NOTE | 2019-01-20 19:08 | ED.DCSUM_ITS ---
- ER Visit Summary Date of Service: 01/20/19 Chief Complaint: Status post fall with right lower leg discomfort and headache History of Present Illness: The patient is a 73 F on Coumadin. Also recently been changing and adjusting her blood pressure medications. Patient was attempting it in a vehicle yesterday and fell. Complaining of right lower leg pain. She is does not think she hit her head but today she developed a frontal and posterior headache. She denies any recent illness. She denies nausea, vomiting and diarrhea. She did take Tylenol for her headache. Without relief. Physical Examination: Elderly female no acute distress. Vital signs are stable. She is afebrile. Initial blood pressure 148/91. HEENT exam pupils round reactive light. No facial droop. Normal speech. No trauma to her face or scalp. Nontender. No hematomas. C-spine nontender. Trachea midline. Normal range of motion. Lungs clear to auscultation bilaterally. Heart regular rhythm rate about 65 with a 4/6 systolic ejection murmur. Chest wall nontender no signs of trauma. Abdomen soft and nontender. Normal bowel sounds no peritoneal signs. Pelvic girdle intact. Extremities moves all 4. Neurovascular intact. Normal forest pathologist strength. Both wrists, elbows and shoulders are nontender normal range there is no deformities or bruising. Back is nontender. Spine is nontender. Her right lower leg on the midportion of her right lateral calf there is a soft tissue hematoma. No gross bony deformity or bony tenderness. Bilateral hips, knees and ankles are nontender with normal range of motion. Dorsi and plantar flexion is intact. She can lift either leg. She can flex and extend both hips and knees. Neurologically she is awake and alert with no focal motor deficits. She knows day, month and year. Test Results: CT of the patient's brain without contrast shows no acute abnormality as read by the radiologist and viewed by me. No signs of acute bleed. Right tibia and fibula x-ray 2 views shows no acute fracture. CBC White count of 5. H&H of 12 and 39. BMP unremarkable with a normal creatinine and gap. PT is 28 and 2.7 is the INR. Emergency Department Course and Treatment: Elderly female with fall unsure if she had a head injury but she is on Coumadin and has a headache. Repeat exam patient is doing well at 2218. Exam is normal and unchanged. She has full range of motion of the right shoulder and there is no tenderness to the right arm. I reevaluate her right lower leg she has a subcu hematoma but is not getting significantly worse. She was instructed to hold her Coumadin tonight. Restarted tomorrow. She already has an appointment to see her primary care physician Dr. Myles Lai tomorrow. I went over all test results with the patient and her family. Treatment Plan: Hold Coumadin tonight. Ice and elevate the right leg. Follow- up with your PCP. Disposition: Discharge Impression: Status post fall Acute headache Right lower extremity soft tissue hematoma Anticoagulated on warfarin with an INR of 2.7 This note was generated with [employer] dictation software. It may contain incorrect words, spelling, and punctuation that were not noted in review of the chart prior to signing ED Disposition - Plan for ED Patient: Referrals: J Luis Lai MD [Primary Care Provider] -
[2019-01-20 19:21] LABS: Absolute Lymphocyte Count 2.44 X10^3/ul (0.83-4.51); Absolute Neutrophil Count 2.5 X10^3/uL (2.0-7.7); Basophil# 0.03 X10^3/uL; Basophil% 0.5 % (0-1); Eosinophil# 0.23 X10^3/uL; Eosinophils% 4.1 % (0-5); Hematocrit 39.5 % (37-47); Hemoglobin 12.7 g/dl (12.0-15.0); Lymphocyte # 2.44 X10^3/ul (4.0); Lymphocyte % 43.7 % (19-41); Mean Corp Hgb Conc 32.2 g/gl (32-36); Mean Corpuscular Hgb 31.1 pg (27.0-32.0); Mean Corpuscular Volume 96.8 fL (81-99); Mean Platelet Vol. 8.5 fl (6.2-12.0); Monocyte% 7.2 % (0-10); Neutrophil # 2.48 X10^3/uL (2.7-7.7); Neutrophil % 44.5 % (47-70); Platelet Count 181 K/mm3 (150-450); RBC Distribution Width CV 13.2 % (11.6-14.6); RBC Distribution Width SD 46.9 fl (35.1-43.9); Red Blood Count 4.08 M/mm3 (4.2-5.4); White Blood Count 5.6 K/mm3 (4.4-11.0)
[2019-01-20 19:22] LABS: POSITIVE COUNT NO; POSITIVE DIFFERENTIAL NO; POSITIVE MORPHOLOGY NO
[2019-01-20 19:27] LABS: International Normalized Ratio 2.7; Prothrombin Time (Protime)PT. 28.6 SECONDS (11.7-14.9)
[2019-01-20 19:36] LABS: Anion Gap 7 (5-15); BUN 19 mg/dL (7-18); BUN/Creat Ratio 20.8 RATIO (10-20); Calcium,Total 8.6 mg/dL (8.5-10.1); Chloride 105 mmol/L (98-107); Creatinine, Serum 0.92 mg/dL (0.55-1.02); EST Glomerular Filtration Rate 64 mL/min (>60); Est Glom Filt Rate - Afr Amer 77 mL/min (>60); Estimated Creatinine Clearance 77.18 ml/min; Glucose 86 mg/dL (74-106); Sodium Level 139 mmol/L (136-145)
[2019-01-20 21:00] VITALS: BP 162/76; PULSE 57; RESP 18; O2SAT 96
--- NOTE | 2019-01-20 22:21 | ED.DEP ---
ED Disposition - Plan for ED Patient: Disposition: Home or Assisted Living Instructions: ED Hematoma Referrals: J Luis Lai MD [Primary Care Provider] - Keep Jj appointment Additional Instructions: Hold your Coumadin dose tonight and may restart tomorrow. Ice and elevate right leg. Return if feeling worse otherwise follow-up with your primary care physician Dr. Arsalan Quevedo
== END 2019-01-20 22:37 | disposition home or self-care (01) ==
PROVIDERS: Emergency Provider Emergency Medicine; Family Provider Family Medicine; PCP Family Medicine
DX: R51 Headache (principal); S80.11XA Contusion of right lower leg, initial encounter; W19.XXXA Unspecified fall, initial encounter; Y93.9 Activity, unspecified; Y92.89 Other specified places as the place of occurrence of the external cause; Y99.9 Unspecified external cause status; I10 Essential (primary) hypertension; Z79.01 Long term (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 of anticoagulants
CPT/HCPCS: 70450; 73590; 80048; 85025; 85610; 99283; A4216

== ENCOUNTER → 2019-02-25 10:10 | Outpatient (CLI) | payer MEDICARE, OTHER, SELFPAY ==
--- NOTE | 2019-02-25 10:14 | BI_ITS ---
MAMMOGRAPHY - BILATERAL SCREENING REASON FOR EXAM: Female, 73 years old. Routine annual screening examination. PERTINENT HISTORY: Non-contributory. Remote left excisional breast biopsy. TECHNIQUE: Digital bilateral breast shlomo (3D mammographic acquisition) in the CC and MLO projections. 2-D mediolateral oblique (MLO) and craniocaudad (CC) views of both breasts were obtained. CAD: Full Field Digital Mammography with Computer Added Detection was performed. COMPARISON: Comparison is made with prior examination dated January 12, 2016. FINDINGS: Breast Composition: There are scattered areas of fibroglandular density. There now is evidence of a 1.8 cm x 2.6 cm spiculated nodule in the upper slightly outer aspect of the right breast. Correlation with ultrasound is recommended for further evaluation. Stable appearance of the small bilateral axillary lymph nodes. No other significant abnormalities are identified. BI/SCREENING MAMM (CAD), BILAT IMPRESSION: There is a new 1.8 cm x 2.6 on the testicular nodule in the upper slightly outer aspect of the right breast as described. Correlation with ultrasound is recommended. ASSESSMENT CATEGORY: BIRADS Category 0: Incomplete. Need additional imaging evaluation. A letter regarding these results will be sent to the patient by the facility within 30 days. Approximately 10% of breast cancers are not detected by mammography. A normal mammogram should not delay biopsy of a clinically suspicious abnormality. [id number] Electronically Signed: Forrest Rodriguez, at 12:39 EDT , Service support ,
--- NOTE | 2019-02-25 10:16 | BD_ITS ---
STUDY: DUAL ENERGY X-RAY ABSORPTIOMETRY / DXA REASON FOR EXAM: Female, 73 years old. The patient is postmenopausal. Loss of height. TECHNIQUE: Bone Mineral Density (BMD) measurements of lumbar spine and bilateral hips were obtained. COMPARISON: Comparison is made with prior study dated January 12, 2016. FINDINGS: Lumbar Spine (L1-L4): g/cm2 (1.246) / T-score (0.7) / Z-score (2.4) Findings are suggestive of normal bone density with a low fracture risk. Left Femur Total: g/cm2 (0.899) / T-score (-0.9) / Z-score (0.9) Left Femoral Neck: g/cm2 (0.699) / T-score (-2.4) / Z-score (-0.5) Right Femur Total: g/cm2 (0.807) / T-score (-1.6) / Z-score (0.2) Right Femoral Neck: g/cm2 (0.672) / T-score (-2.6) / Z-score (-0.7) The T-Scores on the most recent prior examination were: Lumbar Spine (L1-L4): There has been worsening of bone density since the previous examination. Left Femur Total: which represents a worsening of 0.1%. Right Femur Total: which represents a worsening of 4.5%. BD/Dexa Bone Density Study IMPRESSION: The patient is considered osteoporotic as outlined below according to World Junior Organization (WHO) criteria with a high fracture risk. There has been worsening of bone density since the previous examination. Reference Information: The T-score is the number of standard deviations above or below the standard which is normal for young adults at their peak bone mineral density. The World Health Organization (WHO) interprets the T-scores as follows: Above -1 Normal bone density Between -1 and -2.5 Osteopenia Equal to / or below -2.5 Osteoporosis As a practical clinical guideline, osteopenia may be graded as follows: Mild -1 through -1.5 Moderate -1.6 through -2.0 Severe -2.1 through -2.4 The Z-score is the number of standard deviations above or below age-matched controls. A Z-score of less than -1.5 would be considered abnormal. References: 1. NIH Osteoporosis and Related Bone Diseases http://www.osteo.org 2. International Society for Clinical Densitometry http://www.iscd.org 3. National Osteoporosis Foundation http://www.nof.org Electronically Signed: Forrest Rodriguez, at 16:01 EDT , Service support ,
== END ==
PROVIDERS: Family Provider Family Medicine; PCP Family Medicine; Referring Provider Family Medicine; Visit Provider Family Medicine
DX: Z12.31 Encounter for screening mammogram for malignant neoplasm of breast (principal); Z78.0 Asymptomatic menopausal state
CPT/HCPCS: 77063; 77067; 77080

== ENCOUNTER → 2019-02-26 13:20 | Outpatient (CLI) | payer MEDICARE, OTHER, SELFPAY ==
--- NOTE | 2019-02-26 13:22 | US_ITS ---
STUDY: ULTRASOUND BREAST - RIGHT REASON FOR EXAM: Female, 73 years old. Abnormal screening mammogram. TECHNIQUE: Axial and longitudinal images of the RIGHT breast were performed with a high resolution ultrasound transducer. COMPARISON: Comparison is made with prior mammogram dated February 25, 2019. FINDINGS: RIGHT Breast: The mammographic abnormality corresponds to 1.3 cm x 1.3 cm x 1.3 cm irregular hypoechoic solid nodule with posterior acoustical shadowing at the 11:00 position of the breast at 5 cm from the nipple. A biopsy is recommended. US/Breast Limited Unilateral IMPRESSION: The mammographic abnormality corresponds with a suspicious hypoechoic irregular solid nodule at the 11:00 position of the breast at 5 cm from the nipple. This measures 1.3 cm x 1.3 size by 1.3 cm. ASSESSMENT CATEGORY: BIRADS Category 5: Highly Suggestive of Malignancy - Appropriate Action Should Be Taken. A letter regarding these results will be sent to the patient by the facility within 30 days. Electronically Signed: Forrest Rodriguez, at 14:53 EDT , Service support ,
== END ==
PROVIDERS: Family Provider Family Medicine; PCP Family Medicine; Referring Provider Family Medicine; Visit Provider Family Medicine
DX: R92.8 Other abnormal and inconclusive findings on diagnostic imaging of breast (principal)
CPT/HCPCS: 76642

== ENCOUNTER → 2019-03-05 15:10 | Outpatient (CLI) | payer MEDICARE, OTHER, SELFPAY ==
--- NOTE | 2019-03-05 | IMM_PTH ---
PATIENT: CHARLIE ULLOA LOC: [facility] U#:[id number] AGE/SX: 80/F ROOM: RE03/05/[address]: Dr. Young Queen MD : 1945 BED: DIS: SPEC #: [id number] RECD: 03/09/19 14:13 STATUS: DIOR REQ #: [id number] DEL: 03/05/19 00:[address]: Young Queen DEPT: IMMUNOHISTOCHEMISTRY RECD BY: Alley Daily ENTERED: 03/09/19 14:15 SP TYPE: IMMUNO OTHR DR: MD Dr. Law Narayan MD Tissues: Right breast, NOS Procedures: CALPONIN-1 (add) CK5-6 (add) CK8 (add) E-CAD (add) HER2 LUISITO (add) KI-67 (add) P53 (add) AR (add) P40 (add) ER (initial) PHYSICIAN & [address] [address] SPECIMEN INFORMATION: Tissue Source: Right breast Clinical Info: Abnormal mammogram Specimen Number: [id number] CPT code: 72542, 96163 x6, 38072 x3 METHODOLOGY: Deparaffinized sections of prefer/formalin-fixed tissue or PAP/DQ stained slides are incubated with monoclonal/polyclonal antibodies/oligonucleotide probes. Localization is made via biotin free immunoperoxidase method. Appropriate controls are performed and reacted as expected. Results on target cell population are indicated in the following table: RESULTS: ANTIBODY / CLONE RESULT P53 (DO-7) positive, 1% Ki-67 (30-9) positive, low CK8 (55zzffG68) positive CK5-6 (D5 & 1684) negative Calponin-1 (CT995G) negative P40 (BC28) negative E-Cad (ECH-6) positive MORPHOMETRIC ANALYSIS ER (clone 6F11) >95%,strong AR (clone 16/1E2) >95%,moderate Her-2Neu (clone CB11) 0 The prognostic test for HER2 is performed on formalin-fixed paraffin embedded tissue. A 3+ (positive) staining pattern is defined as intense, homogeneous, complete, circumferential membranous staining in >10% of contiguous tumor cells. A similar weak (2+) staining pattern is interpreted as equivocal. RAFA follow-up testing is recommended for all equivocal cases. Positivity/negativity for ER/AR is reported if > or < 1% of the tumor cells are immuno- reactive, respectively. The ASCO/CAP criteria is used for scoring. Reference: Journal of Clinical Oncology, 2013; 31:4561-4213 & 2010; 16:2388-6047. Duration of fixation: 77.5 Hrs; Sample Adequate: Yes. These assays have not been validated on decalcified tissues. Results should be interpreted with caution given the likelihood of false negativity on decalcified specimens. These tests were developed and their performance characteristics determined by [facility]. They may not have been cleared or approved by the U.S. Food and Drug Administration. The FDA has determined that such clearance or approval is not necessary. INTERPRETATION: Right breast, ultrasound-guided needle core biopsy: Invasive ductal carcinoma, grade 1-2. Positive for estrogen receptors (favorable prognostic indicator). Positive for progesterone receptors (favorable prognostic indicator). Negative for overexpression of CNN5vvf. AM:ilir 03/10/19
[2019-03-05 13:54] VITALS: BMI 42.6
--- NOTE | 2019-03-05 14:00 | BRBX_PTH ---
PATIENT: CHARLIE ULLOA LOC: [facility] #:[id number] AGE/SX: 80/F ROOM: RE03/05/[address]: Dr. Young Queen MD : 1945 BED: DIS: SPEC #: [id number] RECD: 03/05/19 15:07 STATUS: DIOR RENuha #: [id number] DEL: 03/05/19 14:[address]: Young Queen DEPT: SURGICAL PATHOLOGY RECD BY: Diego Ferreira ENTERED: 03/06/19 09:32 SP TYPE: BREAST BX OTHR DR: MD Dr. Law Narayan MD Tissues: Right breast, NOS Procedures: Surgery Specimen Level IV HEADER OPERATION: Ultrasound-guided needle core biopsy right breast PRE-OP DIAGNOSIS: Abnormal mammogram R92.8 TISSUE SUBMITTED: Right breast biopsy ISCHEMIC TIME: 30 seconds FIXATION TIME: 77.5 hours MICROSCOPIC DIAGNOSIS Right breast, ultrasound-guided core biopsy: Invasive ductal carcinoma with the following characteristics: Maximal length - 10 mm Nuclear grade - 1-2 See comment. AM:ilir 03/09/19 COMMENT ER/IA/Uob1cpp studies are being performed on sections of tumor and the results from this study will be reported separately ([id number]). 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 Clinical correlation is suggested. Case has been reviewed in consultation with Dr. Rubin who concurs with the above diagnosis. IDC:SJ MICROSCOPIC DESCRIPTION Slides are reviewed. GROSS DESCRIPTION Received in fixative is one container labeled with the patient's name and designated right breast biopsy. The specimen consists of a one elongated fragment of tolentino-yellow fibroadipose tissue measuring 1 cm in length and 0.1 cm in diameter. The specimen is totally submitted in one cassette. / WOLF:ilir 03/06/19 TC:0 CPT: 30559
== END ==
PROVIDERS: Family Provider Family Medicine; PCP Family Medicine; Referring Provider Surgery; Visit Provider Surgery
DX: R92.8 Other abnormal and inconclusive findings on diagnostic imaging of breast (principal)
CPT/HCPCS: 88305; 88341; 88342

== ENCOUNTER 2019-03-17 08:14 | Day surgery (SDC) | payer MEDICARE, OTHER, SELFPAY ==
[2019-03-11 08:42] VITALS: BMI 42.6
[2019-03-17] VITALS (9 sets, daily range): BP systolic 115–148; BP diastolic 73–93; PULSE 59–63; RESP 16; TEMP 36.2–36.8; O2SAT 92–97; BMI 43.7
--- NOTE | 2019-03-17 | IMM_PTH ---
PATIENT: CHARLIE ULLOA [place] [facility] [place][id number] AGE/SX: 73/F ROOM: RE03/17/[address]: Dr. Young Queen MD : 1945 BED: DIS: 03/17/2019 SPEC #: [id number] RECD: 03/19/19 13:06 STATUS: DIOR RENuha #: [id number] DEL: 03/17/19 00:[address]: Young Queen DEPT: IMMUNOHISTOCHEMISTRY RECD BY: Alley Daily ENTERED: 03/19/19 13:07 SP TYPE: IMMUNO OTHR DR: Dr. Myles Lai MD Tissues: B - Axillary lymph node, NOS Procedures: CK7 (add) Pankeratin (initial) Pankeratin (add) PHYSICIAN & INSTITUTION [place] [address] SPECIMEN INFORMATION: Tissue Source: B - [place] lymph node Clinical Info: Abnormal right breast mammogram Specimen Number: [id number] B1 & B2 CPT code: 79655, 83117 x3 METHODOLOGY: Deparaffinized sections of prefer/formalin-fixed tissue or PAP/DQ stained slides are incubated with monoclonal/polyclonal antibodies/oligonucleotide probes. Localization is made via biotin free immunoperoxidase method. Appropriate controls are performed and reacted as expected. Results on target cell population are indicated in the following table: RESULTS: ANTIBODY / CLONE RESULT Block B1 AE1-3 (AE1/AE3/PCK26) negative CK7 (OV-TL12/30) negative Block B2 AE1-3 (AE1/AE3/PCK26) negative CK7 (OV-TL12/30) negative These tests were developed and their performance characteristics determined by [facility]. They may not have been cleared or approved by the U.S. Food and Drug Administration. The FDA has determined that such clearance or approval is not necessary. INTERPRETATION: B. [place] lymph node, biopsy: One lymph node, negative for metastatic carcinoma. SJ:ilir 03/23/19
--- NOTE | 2019-03-17 | BREAST_PTH ---
PATIENT: CHARLIE ULLOA LOC[place] [facility] [place] U[place][id number] AGE/SX: 73/F ROOM: RE03/17/[address]: Dr. Young Queen MD : 1945 BED: DIS: 03/17/2019 SPEC #: [id number] RECD: 03/17/19 11:58 STATUS: DIOR RENuha #: [id number] DEL: 03/17/19 00:[address]: Young Queen DEPT: SURGICAL PATHOLOGY RECD BY: Alley Daily ENTERED: 03/17/19 13:09 SP TYPE: BREAST OTHR DR: Dr. Myles Lai MD Tissues: A - Right breast, NOS B - Axillary lymph node, NOS Procedures: Frozen Section (charge) Frozen Section Add'l ([facility]) Surgery Specimen Level V HEADER OPERATION: Breast lumpectomy, SN with Neoprobe, ultrasound-guided needle localization PRE-OP DIAGNOSIS: Abnormal mammogram right breast TISSUE SUBMITTED: A - Right breast lumpectomy, B - [place] lymph node biopsy FROZEN SECTION DIAGNOSIS B. [place] lymph node, biopsy: One lymph node, negative for metastatic carcinoma. :ilir 03/17/19 MICROSCOPIC DIAGNOSIS A. Right breast, lumpectomy needle localization: Invasive ductal carcinoma with focal mucinous features. See cancer summary below. B. [place] lymph node, biopsy: One lymph node, negative for metastatic carcinoma. See comment. SJ: 03/23/19 INVASIVE BREAST CANCER SUMMARY: Specimen - partial breast Procedure - excision with wire-guided localization Lymph node sampling - sentinel lymph node Specimen integrity - single intact specimen Specimen size - 9 x 8 x 3 cm Specimen laterality - right breast Tumor site - not specified Tumor size - 2 x 2 x 2 cm Tumor focality - single focus of invasive carcinoma Macroscopic and Microscopic extent of tumor: Skin - invasive carcinoma does not invade into the dermis or epidermis. Nipple - not applicable Skeletal muscle - no skeletal muscle present Ductal carcinoma in situ (DCIS) - no DCIS is present. Lobular carcinoma in situ (LCIS) - not identified Histologic type of invasive carcinoma - invasive ductal carcinoma with focal mucinous features. Histologic Grade ([place] grade): Glandular/tubular differentiation - score 3 Nuclear pleomorphism - score 2 Mitotic count - score 1 Overall grade - 2 (score of 6) Margins - Margins uninvolved by invasive carcinoma. The tumor is 0.6 cm away from the closest superior margin. Treatment effect: Response to presurgical (neoadjuvant) therapy - no known presurgical therapy. Lymph-Vascular invasion - not identified Dermal lymph-vascular invasion - not identified Lymph nodes: Number of sentinel lymph nodes examined - 1 Total number of lymph nodes examined (sentinel and nonsentinel) - 1 Number of lymph nodes with macrometastases, micrometastases and isolated tumor cells - 0 Method of evaluation of sentinel lymph nodes - H & E, multiple levels and IHC. Distant metastasis - not applicable Additional pathologic findings - fibrocystic changes Ancillary studies - previously performed on section of tumor ([id number] / [id number]). ER - positive, >95%, strong DE - positive, >95%, moderate Her2 do - 0 Microcalcifications - not identified Clinical history - Please make reference to previous specimen ([id number]), right breast, ultrasound-guided core biopsy with diagnosis of invasive ductal carcinoma. PATHOLOGIC STAGE: pT1c pN0(sn) Mx The above summary is in compliance with [employer] (CAP) Cancer Protocols Checklist and [place] Joint Committee on Cancer (AJCC), Staging Manual, 8th Ed. COMMENT B. The lymph node is negative for metastatic carcinoma on multiple H & E levels and immunohisto-chemical stains for cytokeratins ([id number]). Case has been reviewed in consultation with Dr. Jasmine who concurs with the above diagnosis. IDC:AM MICROSCOPIC DESCRIPTION Slides are reviewed. GROSS DESCRIPTION A - Received in fixative is one container labeled with the patient's name and designated right breast. The specimen consists of an irregular fragment of tolentino-yellow fibrofatty tissue that has been graded by the surgeon measuring 9 x 8 x 3 cm and weighing 120 gm. The specimen is differentially inked as follows: anterior - yellow, posterior - black, superior - blue, inferior - green, medial - red and lateral - orange. The specimen is serially sectioned to reveal a firm, spiculated tolentino-white lesion measuring 2 x 2 x 2 cm. The lesion is located 0.6 cm from the closest (superior) margin of excision. The gross is reviewed with the surgeon in person. Serial sections of the remainder of the breast parenchyma reveal fatty cut surfaces interrupted focally by white fibrous streaks. No other mass lesions are identified. The anterior surface contains a small ellipse of unremarkable tolentino skin measuring 0.8 x 0.2 cm. Inspector Assembly sections are submitted in 11 cassettes as follows: 1 & 2 - perpendicular inked margins, 3 & 4 - tumor with adjacent inked margin, 5-7 - remainder of tumor, 8-11 - traveling representative sections of uninvolved breast parenchyma adjacent to and away from tumor. / AM:ilir 03/18/19 More sections are submitted in cassette 12 - skin with adjacent anterior margin. / SJ:ilir 03/20/19 B - Received fresh for frozen section diagnosis labeled with the patient's name is a specimen designated sentinel lymph node. The specimen consists of a piece of adipose tissue containing nodule consistent with lymph node measuring 4 x 2.5 x 1.5 cm. One lymph node is identified measuring 3 cm in greatest dimension. The lymph node is bisected and submitted in entirety for frozen section diagnosis in two cassettes. / SJ:ilir 03/17/19 TC:0 CPT: 29524 x2, 91840, 68612, 06049
[2019-03-17 08:40] LABS: Prothrombin Time Fingerstick 11.9 SEC (11.9-14.4)
--- NOTE | 2019-03-17 09:00 | NM_ITS ---
PROCEDURE: NUCLEAR MEDICINE Injection [place] Node - RIGHT breast(s). REASON FOR EXAM: Female, 73 years old. Right breast cancer. TECHNIQUE: [place] node localization using radionuclide methods of the RIGHT breast(s) was performed following subcutaneous administration of 1.2 mCi of of sulfur colloid Tc-99m. FINDINGS: 1.2 mCi of technetium labeled sulfur colloid was injected subcutaneously in the superior periareolar region. NM/Lymph Node Injection Only IMPRESSION: Injection of 1.2 mCi of technetium labeled sulfur colloid for sentinel node imaging. Electronically Signed: Forrest Rodriguez, at 10:28 EDT , Service support ,
[2019-03-17] MEDS: Cefazolin 2 GM in 0.9% Normal Saline 100 ML IV (11:05)
[2019-03-17] MEDS: Isosulfan Blue 1% 5 ML Vial (11:30)
--- NOTE | 2019-03-17 11:52 | BI_ITS ---
SURGICAL BREAST SPECIMEN RADIOGRAPH CLINICAL: Document presence of mass in biopsy specimen. FINDINGS: Specimen shows presence of mass. Electronically Signed: Forrest Rodriguez, at 13:14 EDT , Service support , BI/Breast Biopsy Specimen
[2019-03-17] MEDS: Bupivacaine Mpf 0.5% 30 ML VIAL (12:16)
--- NOTE | 2019-03-17 12:31 | PCM.OPRPT ---
Problem List (1) Malignant neoplasm of central portion of right female breast Status: Acute Qualifiers: Estrogen receptor status: positive Qualified Code(s): C50.111 - Malignant neoplasm of central portion of right female breast; Z17.0 - Estrogen receptor positive status [ER+] Report of Operation Date of Procedure: 03/17/19 Pre-Operative Diagnosis: Right female breast cancer central portion estrogen receptor positive Post-Operative Diagnosis: Same Surgery/Procedure Performed:: 1. Injection of 5 cc of Lymphazurin blue. 2. Ultrasound-guided wire localization of right breast cancer. 3. Wire localization right breast lumpectomy. 4. [place] lymph node biopsy Type of Anesthesia:: General Anesthesiologist: Basil Harris Specimen's removed: 1. Right breast lumpectomy double long lateral, double short medial, wire and skin come out anteriorly, single long posteriorly towards muscle. #2 sentinel lymph node biopsy Drains: no Estimated Blood Loss (mL): < 25 cc Description of Procedure: Patient was brought into the operating room. Placed in the supine position. Under excellent general anesthetic I ultrasound the central portion of the right breast lesion was identified. I prepped the skin with alcohol. Under ultrasound guidance a Kopan's wire was placed directly through the lesion. I then cleaned the nipple off with alcohol injected 4 cc of Lymphazurin blue circumareolar Kishan. The breast was massaged for 10 minutes. The breast and axillary area on the right side were then sterilely prepped and draped in the usual fashion. A curvilinear incision was made in the upper outer half of the right breast. Electrocautery was used to get circumferentially around this lesion using the guidewire as my guide. Excellent hemostasis. I marked the specimen. I sent it to pathology. My margins were free. I then used electrocautery and gain access into the clavipectoral fascia. I used the neoprobe to direct me to where the lymph node was located. I used dissection with electrocautery as well as blunt dissection identified the lymph node and removed it with the harmonic dissector my largest count was 670. I did not see any more blue lymph nodes or have any more hits on the neoprobe and I only took out one lymph node. The frozen section on the lymph node came back benign. I irrigated out the wound I had excellent hemostasis. I brought the subcu tissue together with 3 interrupted sutures of 2-0 Vicryl. Skin was brought together with deep dermal stitches of 3-0 Vicryl then a running 4-0 Monocryl. Steri-Strips were applied sterile dressings were applied and the patient tolerated the procedure well. I did not feel there was a need to place a drain at this time. - Admit VTE Documentation VTE Present on Admission: No VTE Mechan Device Prophylaxis: SCD's VTE Pharm Prophylaxis ordered?: No Reason prophylaxis not ordered:: Treatment Not Indicated
--- NOTE | 2019-03-17 12:34 | DCINST_ITS ---
Discharge Diet: No Restrictions Discharge Activity: May Not Drive - for 2-3 days or while taking narcotic pain meds. May shower in (days): 1 Lifting Restrictions: 10 pounds for 1 week. Call your doctor if your incision/area has: Continuous Slow Oozing, Sudden In creased Bleeding Call your doctor if you observe: Fever of 101 or Higher Suture Line Care: Avoid Pulling/Pushing, Avoid Pinching/Bending Remove Dressing in (days):: 1 - Remove bulky dressing tomorrow. May leave any opsite dressing for 3-4 days. Keep dressing in place until your follow-up appointment. Additional Dressing/Incision Instructions:: Remove bulky dressing tomorrow. May leave any opsite dressing for 3-4 days. Keep dressing in place until your follow-up appointment. Allergies/Adverse Reactions: Allergies No Known Allergies Allergy (Verified 03/13/19 08:12) Medications to take at Discharge Acetaminophen [Pain Reliever] 1,000 mg PO QHS 03/02/17 Calcium Carbonate [Calcium] 600 mg PO DAILY 03/02/17 Cholecalciferol (Vitamin D3) [Vitamin D3] 400 unit PO DAILY 03/02/17 Melatonin 3 mg PO QHS 03/02/17 Multivit-Min/Iron/Folic/Lutein [Centrum Silver Women Tablet] 1 ea PO DAILY 03/02/17 buPROPion tablets [Wellbutrin tablets] 150 mg PO DAILY 03/02/17 escitalopram 5 mg tablet 5 mg PO DAILY 30 Days #30 tab 12/24/18 ferrous sulfate 27 mg iron tablet 27 mg PO DAILY tab 12/24/18 gabapentin 300 mg capsule 300 mg PO BID 30 Days #90 cap 12/24/18 amlodipine 5 mg tablet 5 mg PO DAILY 03/02/19 pyridoxine (vitamin B6) 100 mg tablet 100 mg PO DAILY 03/02/19 Losartan Potassium 100 mg PO DAILY 03/13/19 Metoprolol Succinate [Toprol Xl] 50 mg PO QDAY 03/13/19 Warfarin [Coumadin ([facility])] 1.5 mg PO SUTUTHSA 03/13/19 Warfarin [Coumadin] 3 mg PO MOWEFR 03/13/19 Oxycodone HCl/Acetaminophen [Percocet 5/325] 1 - 2 tab PO Q4H PRN PRN 6 Days #30 tab 03/17/19 The following prescriptions were given: Oxycodone HCl/Acetaminophen [Percocet 5/325] 1 - 2 tab PO Q4H PRN PRN 6 Days #30 tab PRN Reason: Pain Primary Care Physician: J Luis Lai MD [Primary Care Provider] -
== END 2019-03-17 15:40 | disposition home or self-care (01) ==
LOC: SDC 08:15 → AC 08:16
PROVIDERS: Family Provider Family Medicine; PCP Family Medicine; Referring Provider Surgery; Visit Provider Surgery
PROC: (CPT 19301; principal; 2019-03-17 10:45)
DX: C50.111 Malignant neoplasm of central portion of right female breast (principal); Z17.0 Estrogen receptor positive status [ER+]; I10 Essential (primary) hypertension; I48.0 Paroxysmal atrial fibrillation; E11.9 Type 2 diabetes mellitus without complications; F32.9 Major depressive disorder, single episode, unspecified; Z98.84 Bariatric surgery status
CPT/HCPCS: 01610; 19301; 38525; 36416; 38792; 76098; 85610; 88305; 88307; 88331; 88332; 88341; 88342; A9541; J7120; J2405; Q9968

== ENCOUNTER 2019-03-24 09:25 | Outpatient (RCR) | payer MEDICARE, OTHER, SELFPAY ==
[2019-03-02 09:59] VITALS: BMI 42.6
[2019-03-02 10:36] LABS: Prothrombin Time Fingerstick 29.8 SEC (11.9-14.4)
[2019-03-24 09:46] LABS: Prothrombin Time Fingerstick 16.3 SEC (11.9-14.4)
== END 2019-03-31 16:00 | disposition home or self-care (01) ==
LOC: MTLAB 09:25
PROVIDERS: Family Provider Family Medicine; PCP Family Medicine; Referring Provider Internal Medicine Cardiovascular Disease; Visit Provider Internal Medicine Cardiovascular Disease
DX: I48.91 Unspecified atrial fibrillation (principal); Z79.01 Long term (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 of anticoagulants; I48.92 Unspecified atrial flutter
CPT/HCPCS: 36416; 85610

== ENCOUNTER → 2019-03-31 13:26 | Outpatient (CLI) | payer MEDICARE, OTHER, SELFPAY ==
[2019-03-30 08:33] VITALS: BMI 40.4
--- NOTE | 2019-03-31 13:30 | CT_ITS ---
STUDY: CT ABDOMEN AND PELVIS WITH CONTRAST REASON FOR EXAM: Female, 73 years old. Breast cancer. RADIATION DOSAGE (If Supplied By Facility): CTDIvol = ( 19.70 ) mGy, DLP = ( 1656.53 ) mGycm TECHNIQUE: Transaxial images were obtained from the dome of the diaphragm to the symphysis pubis with oral contrast. 100ml ml of Isovue 300 contrast was administered. Sagittal and coronal images were reconstructed. Individualized dose optimization techniques were used for this CT. COMPARISON: None. FINDINGS: There are no calcified gallstones present. The liver is within normal limits. There are no suspicious hepatic lesions. The spleen is normal in size. There is a calcified granuloma noted in the spleen. The pancreas is within normal limits. The adrenal glands are within normal limits. There are no renal or ureteral stones. There is no hydronephrosis. There are no focal renal lesions. The patient is status post gastric bypass. There is no bowel obstruction or inflammation. The appendix is visualized and appears normal. The aorta is normal in caliber. There is no abdominal or pelvic free air, free fluid, fluid collection or lymphadenopathy. There is fusion hardware noted in the lower lumbar spine. There are no destructive osseous lesions. CT/Abdomen/Pelvis WITH Contrast IMPRESSION: No evidence of metastatic disease in the abdomen or pelvis. Electronically Signed: Jose Francisco Hernandez, at 20:02 EDT Tel , Service support ,
--- NOTE | 2019-03-31 13:30 | CT_ITS ---
STUDY: CT CHEST WITH CONTRAST REASON FOR EXAM: Female, 73 years old. Rest cancer. RADIATION DOSAGE (If Supplied By Facility): CTDIvol = ( 19.70 ) mGy, DLP = ( 1656.53 ) mGycm TECHNIQUE: Transaxial imaging was performed following intravenous administration of 100ml ml of Isovue 300 contrast material. Coronal and sagittal reformatted images were created. Individualized dose optimization techniques were used for this CT. COMPARISON: None FINDINGS: There is a 4 mm nodule in the right upper lobe (image 34 series 1004). There is a 6 mm nodule in the right middle lobe (image 55 series 1004). There is a 7 mm nodule in the right lower lobe (image 63 series 1004). There is a 5 mm nodule in the lingula (image 54 series 1004). There are no pulmonary infiltrates or pleural effusions. There is no pneumothorax. The heart and pericardium are within normal limits. There is no thoracic lymphadenopathy. There is no evidence of thoracic aortic aneurysm. The patient is status post right shoulder arthroplasty. There are degenerative changes noted in the spine. There are no destructive osseous lesions. CT/Chest WITH Contrast IMPRESSION: Bilateral indeterminate subcentimeter pulmonary nodules measuring up to 7 mm. In 3-6 months is recommended. No lymphadenopathy. No pulmonary infiltrates or pleural effusions. Subcutaneous fluid and stranding in the right breast, consistent with the patient's recent history of a lumpectomy. Electronically Signed: Jose Francisco Hernandez, at 19:50 EDT Tel , Service support ,
[2019-03-31 13:51] LABS: CREATININE FINGERSTICK 1.1 mg/dL (0.55-1.02)
== END ==
PROVIDERS: Family Provider Family Medicine; PCP Family Medicine; Referring Provider Internal Medicine Medical Oncology; Visit Provider Internal Medicine Medical Oncology
DX: C50.111 Malignant neoplasm of central portion of right female breast (principal)
CPT/HCPCS: 71260; 74177; Q9967

== ENCOUNTER → 2019-04-03 10:30 | Outpatient (CLI) | payer MEDICARE, OTHER, SELFPAY ==
[2019-03-30 08:33] VITALS: BMI 40.4
[2019-04-01 08:35] VITALS: BMI 42.6
--- NOTE | 2019-04-03 10:31 | NM_ITS ---
CLINICAL: 73-year-old female with reported history of carcinoma of the breast. WHOLE BODY 99m Tc MDP RADIONUCLIDE BONE SCINTIGRAPHY COMPARISON: Previous whole body bone scintigraphy report 11/03/2015 FINDINGS: Following the intravenous administration of 26.1 mCi of 99m Tc MDP, whole body bone images reveal: 1. Increased radiopharmaceutical concentration is identified in the acromioclavicular compartments of both shoulders, bilateral elbows, the visualized wrists and hands, the lower cervical spine posteriorly on the right, the first-fourth, eighth and 10th thoracic vertebra, the bilateral ankles, the midfoot bilaterally. 2. The remaining skeletal structures are scintigraphically unremarkable with normal-appearing renal images and urinary bladder activity identified. Mild enhanced tracer distribution is defined in the femoral and tibial components of the presumably asymptomatic right and left knee arthroplasty is most consistent with normal postsurgical change. Subtle increased radiotracer uptake is noted in the bilateral anterior chest wall at the costochondral junction most consistent with an inflammatory process-costochondritis and/or potential previous trauma-fracture. NM/Bone Scan Whole Body IMPRESSION: 1. The increased radiopharmaceutical concentration identified in the bilateral shoulders, both elbows, right-left wrist and hands, cervical and thoracic spine, bilateral ankles, the right-left midfoot is commensurate with degenerative arthritis. 2. Overall compared to the previous whole body bone scintigraphy report dated 11/03/2015, there is no significant interval change. No current typical scintigraphic evidence of diffuse axial skeletal metastatic disease is defined. Electronically Signed: Higinio Peters DO at 8:09 EDT Tel , Service support ,
== END ==
PROVIDERS: Family Provider Family Medicine; PCP Family Medicine; Referring Provider Internal Medicine Medical Oncology; Visit Provider Internal Medicine Medical Oncology
DX: C50.111 Malignant neoplasm of central portion of right female breast (principal)
CPT/HCPCS: 78306

== ENCOUNTER 2019-04-28 10:33 | Outpatient (RCR) | payer MEDICARE, OTHER, SELFPAY ==
[2019-04-01 08:35] VITALS: BMI 42.6
[2019-04-06 12:55] LABS: Prothrombin Time Fingerstick 18.2 SEC (11.9-14.4)
[2019-04-28 10:46] LABS: Prothrombin Time Fingerstick 34.6 SEC (11.9-14.4)
== END 2019-04-28 12:00 | disposition home or self-care (01) ==
LOC: MTLAB 10:33
PROVIDERS: Family Provider Family Medicine; PCP Family Medicine; Referring Provider Internal Medicine Cardiovascular Disease; Visit Provider Internal Medicine Cardiovascular Disease
DX: I48.0 Paroxysmal atrial fibrillation (principal); I48.92 Unspecified atrial flutter; Z79.01 Long term (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 of anticoagulants
CPT/HCPCS: 36416; 85610

== ENCOUNTER 2019-05-11 10:57 | Outpatient (RCR) | payer MEDICARE, OTHER, SELFPAY ==
[2019-04-01 08:35] VITALS: BMI 42.6
[2019-04-07 10:55] VITALS: BMI 41.4
[2019-05-11 11:11] LABS: Prothrombin Time Fingerstick 40.1 SEC (11.9-14.4)
== END 2019-05-11 11:00 | disposition home or self-care (01) ==
LOC: MTLAB 10:57
PROVIDERS: Family Provider Family Medicine; PCP Family Medicine; Referring Provider Internal Medicine Cardiovascular Disease; Visit Provider Internal Medicine Cardiovascular Disease
DX: I48.0 Paroxysmal atrial fibrillation (principal); I48.92 Unspecified atrial flutter; Z79.01 Long term (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 of anticoagulants
CPT/HCPCS: 36416; 85610

== ENCOUNTER 2019-07-01 13:51 | Outpatient (RCR) | payer MEDICARE, OTHER, SELFPAY ==
[2019-04-07 10:55] VITALS: BMI 41.4
[2019-05-12 13:40] VITALS: BMI 40.8
[2019-06-08 11:11] LABS: Prothrombin Time Fingerstick 43.1 SEC (11.9-14.4)
[2019-06-08 13:50] LABS: Prothrombin Time (Protime)PT. 39.2 SECONDS (11.7-14.9)
[2019-06-15 10:51] LABS: Prothrombin Time Fingerstick 25.4 SEC (11.9-14.4)
[2019-06-22 12:11] LABS: Prothrombin Time Fingerstick 21.2 SEC (11.9-14.4)
[2019-07-01 14:01] LABS: Prothrombin Time Fingerstick 23.6 SEC (11.9-14.4)
== END 2019-07-01 15:52 | disposition home or self-care (01) ==
LOC: MTLAB 13:51
PROVIDERS: Family Provider Family Medicine; PCP Family Medicine; Referring Provider Internal Medicine Cardiovascular Disease; Visit Provider Internal Medicine Cardiovascular Disease
DX: I48.0 Paroxysmal atrial fibrillation (principal); I48.92 Unspecified atrial flutter; Z79.01 Long term (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 of anticoagulants
CPT/HCPCS: 36415; 36416; 85610

== ENCOUNTER 2019-07-29 15:33 | Outpatient (RCR) | payer MEDICARE, OTHER, SELFPAY ==
[2019-04-07 10:55] VITALS: BMI 41.4
[2019-06-09 14:52] VITALS: BMI 40.6
[2019-07-29 15:44] LABS: Prothrombin Time Fingerstick 28.9 SEC (11.9-14.4)
== END 2019-07-29 16:33 | disposition home or self-care (01) ==
LOC: MTLAB 15:33
PROVIDERS: Family Provider Family Medicine; PCP Family Medicine; Referring Provider Internal Medicine Cardiovascular Disease; Visit Provider Internal Medicine Cardiovascular Disease
DX: I48.0 Paroxysmal atrial fibrillation (principal); I48.92 Unspecified atrial flutter; Z79.01 Long term (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 of anticoagulants
CPT/HCPCS: 36416; 85610

== ENCOUNTER 2019-08-25 09:56 | Outpatient (RCR) | payer MEDICARE, OTHER, SELFPAY ==
[2019-04-07 10:55] VITALS: BMI 41.4
[2019-06-09 14:52] VITALS: BMI 40.6
[2019-08-04 13:02] VITALS: BMI 42.2
[2019-08-25 13:38] LABS: Prothrombin Time Fingerstick 24.9 SEC (11.9-14.4)
== END 2019-08-25 18:00 | disposition home or self-care (01) ==
LOC: MTLAB 09:56
PROVIDERS: Family Provider Family Medicine; PCP Family Medicine; Referring Provider Internal Medicine Cardiovascular Disease; Visit Provider Internal Medicine Cardiovascular Disease
DX: I48.0 Paroxysmal atrial fibrillation (principal); I48.92 Unspecified atrial flutter; Z79.01 Long term (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 of anticoagulants
CPT/HCPCS: 36416; 85610

== ENCOUNTER 2019-08-29 13:39 | Emergency (ER) | payer MEDICARE, OTHER, SELFPAY ==
[2019-04-07 10:55] VITALS: BMI 41.4
[2019-08-04 13:02] VITALS: BMI 42.2
[2019-08-29 13:41] VITALS: BP 155/77; PULSE 69; RESP 17; TEMP 36.8; O2SAT 96; BMI 43.1
--- NOTE | 2019-08-29 14:04 | RAD_ITS ---
STUDY: X-RAY - LEFT WRIST REASON FOR EXAM: Female, 74 years old. Fell and injured left wrist TECHNIQUE: 3 view(s) of the wrist were obtained. COMPARISON: None. FINDINGS: Normal visualized distal radius and ulna. Normal radiocarpal articulation. Normal distal radioulnar articulation. Normal carpal bones. Normal carpal articulations. There is degenerative arthrosis of the carpometacarpal articulation of the thumb. Normal second through fifth carpometacarpal articulations. Normal visualized metacarpal bones. The soft tissue structures are unremarkable. Chondrocalcinosis triangle fibrocartilage complex. 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 No fracture. Electronically Signed: Guero Queen MD at 15:36 EDT , Service support ,
[2019-08-29] MEDS: oxyCODONE 5 MG Tablet PO (14:06)
--- NOTE | 2019-08-29 14:06 | RAD_ITS ---
STUDY: X-RAY - LEFT ELBOW REASON FOR EXAM: Female, 74 years old. Fell and injured left elbow TECHNIQUE: 4 view(s) of the elbow. COMPARISON: None. FINDINGS: Normal visualized humerus, radius and ulna. Normal radiocapitellar and ulnotrochlear articulations. The soft tissue structures are unremarkable. RAD/Elbow min 3 Views IMPRESSION: Normal x-ray examination of the elbow. Electronically Signed: Guero Queen MD at 15:32 EDT , Service support ,
--- NOTE | 2019-08-29 14:06 | ED.VIS.GEN ---
History of Present Illness Informant: Patient Onset: Today Narrative: Patient presents to the ED following mechanical fall. She was walking down the ED sidewalk when she tripped and fell landing onto her left side. She primarily reports left wrist pain. She does state that she also bumped her left elbow and was concerned about this as well. She denies hitting her head or LOC. She denies any headache or neck pain. She was able to drive home after the injury. She has not taken anything for analgesia. <Shantel Zamora - Last Filed: 08/29/19 15:52> <Marco Antonio Brumfield - Last Filed: 08/29/19 16:05> Chief Complaint: Fall Past Medical History Surgical History: gastric bypass Smoking Status: Never smoker - Family History Maternal Family History: Family History (Last Reviewed 08/04/19 @ 13:00 by Juju Resendiz) Sister CVA (cerebral vascular accident) Father CAD (coronary artery disease) Hypertension Mother Hypertension CAD (coronary artery disease) Family History: Reports: Heart Disease <Shantel Zamora - Last Filed: 08/29/19 15:52> - Family History Maternal Family History: Family History (Last Reviewed 08/04/19 @ 13:00 by Juju Resendiz) Sister CVA (cerebral vascular accident) Father CAD (coronary artery disease) Hypertension Mother Hypertension CAD (coronary artery disease) <Marco Antonio Brumfield - Last Filed: 08/29/19 16:05> - Allergies and Home Meds Allergies/Adverse Reactions: Allergies No Known Allergies Allergy (Verified 08/29/19 13:41) Primary Care Physician: J Luis Lai MD [Primary Care Provider] - Jose Francisco Rockwell MD [STAFF PHYSICIAN] - 3-5 Days Review of Systems General: Denies: Chills, Fever, Sweats Eyes: Denies: Visual changes - bilaterally, Diplopia ENT: Denies: Rhinorrhea, Sore throat Cardiovascular: Denies: Chest pain, Palpitations Respiratory: Denies: Dyspnea, Cough, Dyspnea on exertion Gastrointestinal: Denies: Abdominal pain, Nausea, Vomiting, Diarrhea, Melena, Hematochezia Genitourinary: Denies: Dysuria, Hematuria, Frequency Musculoskeletal: Reports: - - Left wrist and elbow pain. Denies: Back pain, Extremity Pain Skin: Denies: Rash, Wounds Neurological: Denies: Headache, Weakness, Numbness <Shantel Zamora - Last Filed: 08/29/19 15:52> Physical Exam Vital Signs/Narrative: Vital Signs Temp Pulse Resp BP Pulse Ox 08/29/19 13:41 98.3 F 69 17 155/77 H 96 General: Well nourished, Well developed, No Acute Distress Head: Normocephalic, Atraumatic Eyes: Perrl, EOMI ENT: Moist mucous membranes, No rhinorrhea Neck: Supple, Nontender Cardiovascular: Regular rate, Regular rhythm, No murmurs Respiratory: No distress, CTA bilaterally, Chest nontender Abdomen: Soft, Nontender, Nondistended, Normal bowel sounds Back: Nontender, Normal Inspection Extremities: No edema, - - Tenderness to palpation over left distal radius and ulna. Full range of motion of left hand, wrist, elbow, and shoulder. No tenderness to palpation over left radial head. Some snuffbox tenderness. No edema, ecchymosis, erythema. No obvious deformity. No tenderness to palpation over left clavicle. Skin: Normal color, No rash, - - No signs of outward head trauma. Neurological: Alert, Oriented x3, Cranial nerves II-XII grossly intact, Normal Strength, Normal Sensation Psychological: Normal affect, Normal Mood <Shantel Zamora - Last Filed: 08/29/19 15:52> Vital Signs/Narrative: Vital Signs Temp Pulse Resp BP Pulse Ox 08/29/19 13:41 98.3 F 69 17 155/77 H 96 <Marco Antonio Brumfield - Last Filed: 08/29/19 16:05> Diagnostic/Tx/Re-eval - Medical Decision Making Patient presents to the ED with injury to her left wrist and elbow after fall. Radiographs of left wrist and elbow show no acute abnormality. Patient was given 1 oxycodone tablet here for analgesia. At this time, think it is safe for the patient be discharged home. As she did have some snuffbox tenderness. She will be placed in a thumb spica splint. She was given orthopedics to follow-up with in 5 days. She was educated on rice therapy. She is educated on signs/symptoms to return to the ED. She is provided discharge instructions and agreeable to plan. 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 No fracture. Electronically Signed: Guero Queen MD at 15:36 EDT , Service support , Elbow X-Ray 08/29/19 14:06 IMPRESSION: Normal x-ray examination of the elbow. Electronically Signed: Guero Queen MD at 15:32 EDT , Service support , - Medical Decision Making Seen and evaluated independently and in conjunction with physician video production assistant. Agree with notes above unless documented otherwise. Patient has tenderness of the distal radius, pupils range but limited at extremes of motion with the wrist, and tenderness in the snuffbox. He has chronic arthritis of her left thumb, she does have increased pain with axial loading, difficult to discern if this is due to her chronic arthritis or an occult injury to the scaphoid. For that reason, she will be placed in a thumb spica splint and will follow up with orthopedics for reevaluation in a week or so. She is comfortable with that plan. <Marco Antonio Brumfield - Last Filed: 08/29/19 16:05> ED Disposition <Shantel Zamora - Last Filed: 08/29/19 15:52> <Marco Antonio Brumfield - Last Filed: 08/29/19 16:05> - Plan for ED Patient: Disposition: Home or Assisted Living Diagnosis: Left wrist sprain, Elbow contusion, Fall Instructions: Wrist Sprain Referrals: J Luis Lai MD [Primary Care Provider] - Jose Francisco Rockwell MD [STAFF PHYSICIAN] - 3-5 Days
== END 2019-08-29 16:09 | disposition home or self-care (01) ==
PROVIDERS: Emergency Provider Physician Assistant; Family Provider Family Medicine; PCP Family Medicine
DX: S63.502A Unspecified sprain of left wrist, initial encounter (principal); W01.0XXA Fall on same level from slipping, tripping and stumbling without subsequent striking against object, initial encounter; Y93.01 Activity, walking, marching and hiking; Z82.3 Family history of stroke; Z82.49 Family history of ischemic heart disease and other diseases of the circulatory system; Z98.84 Bariatric surgery status
CPT/HCPCS: 73080; 73110; 99283

== ENCOUNTER → 2019-09-02 15:57 | Outpatient (CLI) | payer MEDICARE, OTHER, SELFPAY ==
[2019-04-07 10:55] VITALS: BMI 41.4
[2019-08-29 13:41] VITALS: BMI 43.1
[2019-09-04 16:07] LABS: Endomysial Antibody IgA Negative (Negative)
[2019-09-07 13:50] LABS: Immunoglobulin A 190 mg/dL (64-422); t-Transglutaminase IgA <2 U/mL (0-3)
== END ==
PROVIDERS: Family Provider Family Medicine; PCP Family Medicine; Referring Provider Internal Medicine Gastroenterology; Visit Provider Internal Medicine Gastroenterology
DX: R19.7 Diarrhea, unspecified (principal)
CPT/HCPCS: 36415; 82784; 83516; 86255

== ENCOUNTER 2019-09-18 17:52 | Emergency (ER) | payer MEDICARE, OTHER, SELFPAY ==
[2019-09-15 09:55] VITALS: BMI 42.3
[2019-09-18 17:53] VITALS: BP 138/66; PULSE 71; RESP 15; TEMP 36.2; O2SAT 96; BMI 42.5
--- NOTE | 2019-09-18 18:03 | CT_ITS ---
STUDY: CT BRAIN WITHOUT CONTRAST REASON FOR EXAM: Female, 74 years old. Abrasions RADIATION DOSAGE (If Supplied By Facility): DLP = ( 829.85 ) mGycm TECHNIQUE: Transaxial CT imaging of the brain was performed without administration of intravenous contrast material. Individualized dose optimization techniques were used for this CT. COMPARISON: CT head January 20, 2019 FINDINGS: There is no acute bleed or infarct. There are normal white matter tracts. The ventricles are normal in configuration. There is no hydrocephalus. The visualized paranasal sinuses are clear. The mastoid air cells are well aerated. Age indeterminate nondisplaced nasal bone fractures are present. Nasal soft tissue swelling is present. CT/Brain/Head without Contrast IMPRESSION: No acute intracranial abnormality. Age indeterminate nondisplaced nasal bone fractures. Nasal soft tissue swelling. Electronically Signed: Venancio Tanner, at 18:32 EDT Tel , Service support ,
--- NOTE | 2019-09-18 18:05 | ED.VIS.INJ ---
History of Present Illness Chief Complaint: Fall Informant: Patient, Family Onset: Today Mechanism/Context: Blunt Injury, Fall Quality of Pain: Dull, Aching Location: Head Current Severity: Mild Maximum Severity: Moderate Worsened by: Nothing specific Relieved by: Nothing Associated Symptoms: Loss of consciousness. Negative for: Parasthesias, Weakness, Loss of function, Inability to ambulate Length of loss of consciousness: Brief Narrative: Patient is an elderly woman on Coumadin for atrial fibrillation who tripped and fell forward. She hit her forehead, nose and left knee. Immunizations up-to-date. She does complain of headache. She does report nausea. She denies vomiting. She denies neck pain. She denies paresthesia, anesthesia motor weakness. She denies cardiac respiratory symptoms. Denies black or maroon-colored stool. She denies bruising easily. She states her INR was assessed 3 weeks ago and was 2.1. Her Coumadin dose has not been changed. 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 (4) Lung nodule, multiple Status: Chronic (5) Paroxysmal atrial fibrillation Status: Chronic (6) History of radiofrequency ablation procedure for cardiac arrhythmia Status: Resolved Comment: RFA for atrial flutter Past Medical History - Allergies and Home Meds Allergies/Adverse Reactions: Allergies No Known Allergies Allergy (Verified 09/18/19 17:52) Primary Care Physician: J Luis Lai MD [Primary Care Provider] - Prior records reviewed: Yes Surgical History: gastric bypass Lives: Alone Smoking Status: Never smoker Alcohol: None Drugs: None - Family History Maternal Family History: Family History (Last Reviewed 09/15/19 @ 09:54 by Ayana Tapia) Sister CVA (cerebral vascular accident) Father CAD (coronary artery disease) Hypertension Mother Hypertension CAD (coronary artery disease) Family History: Reports: Heart Disease Review of Systems General: Denies: Chills, Fever, Sweats Eyes: Denies: Visual changes - bilaterally, Blurred Vision - bilaterally, Diplopia ENT: Denies: Rhinorrhea, Sore throat Cardiovascular: Denies: Chest pain, Palpitations Respiratory: Denies: Dyspnea, Cough, Dyspnea on exertion Gastrointestinal: Denies: Abdominal pain, Nausea, Vomiting, Diarrhea, Melena, Hematochezia Genitourinary: Denies: Dysuria, Hematuria, Frequency Musculoskeletal: Reports: Extremity Pain - Left knee. Denies: Myalgias, Arthralgias, Neck pain, Back pain, Swelling Skin: Reports: Abrasions Neurological: Reports: Headache. Denies: Weakness, Parasthesia, Numbness Endocrine: Denies: Polyuria, Polydipsia Hematologic: Denies: Easy bruising, Easy bleeding Allergy: Denies: Uticaria Physical Exam Vital Signs/Narrative: Vital Signs Temp Pulse Resp BP Pulse Ox 09/18/19 17:53 97.1 F L 71 15 138/66 H 96 Inital Vital Signs reviewed: Yes General: Well nourished, Well developed, Obese Head: Normocephalic, Trauma - There is a contusion forehead and abrasion to the nose, - - There is no clinical findings of basilar skull fracture Eyes: Perrl, EOMI, - - Is no subconjunctival hemorrhage.. Negative for: Pale conjunctiva, Scleral icterus ENT: TM's clear, No hemotympanum or drainage, No trauma, Nasal trauma. Negative for: Hemotympanum, Otorrhea, Nasal septal hematoma Neck: Nontender, Full ROM. Negative for: Spinal Tenderness, Paraspinal Tenderness Cardiovascular: No murmurs, Irregular Respiratory: No distress, CTA bilaterally, Chest nontender Abdomen: Soft, Nontender, Nondistended, Normal bowel sounds Rectal: Deferred Back: Nontender. Negative for: CVA Tenderness - Right, CVA Tenderness - Left Extremeties: There is an abrasion over the left patella. The left patella is not ballotable. There is no effusion. There is no lacks with varus valgus stress testing. She has full flexion extension. Skin: Normal color, No rash, Trauma - Rasion nose and left patella Neurological: Alert, Oriented x3, Cranial nerves II-XII grossly intact, Normal Strength, Normal Sensation, Normal DTR, Normal Gait Psychological: Normal affect - Glascow Coma Scale Eye Opening: Spontaneous Motor: Extensor Response Verbal: Oriented Coma Scale Total: 11 Diagnostic/Tx/Re-eval Impressions Brain CT 09/18/19 18:03 IMPRESSION: No acute intracranial abnormality. Age indeterminate nondisplaced nasal bone fractures. Nasal soft tissue swelling. Electronically Signed: Venancio Tanner, at 18:32 EDT Tel , Service support , 09/18/19 18:03 Brain/Head without Contrast [CT] Stat Laboratory Results 09/18/19 18:10 PT 37.2 H INR 3.[address] H* [address] of the head was reviewed by me and there was no obvious bleed noted. INR is elevated at 3.7. Patient was instructed to hold her next 2 doses of Coumadin. - Medical Decision Making Since patient had head trauma with loss of conscious over the age of 65 and on Coumadin will obtain PT/INR and CT of the head to evaluate for intracranial bleed i.e. subdural, epidural, intraparenchymal contusion versus traumatic subarachnoid hemorrhage. Cessation is up-to-date. CT of the head is negative and INR is less than 4 she will be discharged to home and instructed to hold her Coumadin for the next 2 doses since she has history of paroxysmal atrial fibrillation and not a recent DVT or PE. ED Disposition - Plan for ED Patient: Diagnosis: Traumatic brain injury with brief loss of consciousness, residential (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 of anticoagulants Instructions: Head Trauma (Traumatic Brain Injury) Referrals: J Luis Lai MD [Primary Care Provider] - As Needed Additional Instructions: Your INR is 3.7. Recommend not taking her next 2 doses of Coumadin.
[2019-09-18 18:40] LABS: Prothrombin Time (Protime)PT. 37.2 SECONDS (11.7-14.9)
[2019-09-18 18:42] LABS: International Normalized Ratio 3.7
--- NOTE | 2019-09-18 18:44 | ED.RN ---
inr 3.7 called from the lab dr contreras aware
[2019-09-18 19:35] VITALS: BP 144/75; PULSE 80; RESP 18; O2SAT 98
== END 2019-09-18 19:36 | disposition home or self-care (01) ==
LOC: ED 18:23
PROVIDERS: Emergency Provider Emergency Medicine; Family Provider Family Medicine; PCP Family Medicine
DX: S06.9X1A Unspecified intracranial injury with loss of consciousness of 30 minutes or less, initial encounter (principal); W01.0XXA Fall on same level from slipping, tripping and stumbling without subsequent striking against object, initial encounter; S02.2XXA Fracture of nasal bones, initial encounter for closed fracture; I48.0 Paroxysmal atrial fibrillation; I10 Essential (primary) hypertension; Z79.01 Long term (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 of anticoagulants; Z82.3 Family history of stroke; Z82.49 Family history of ischemic heart disease and other diseases of the circulatory system; Z85.3 Personal history of malignant neoplasm of breast; Z98.84 Bariatric surgery status
CPT/HCPCS: 70450; 85610; 99283

== ENCOUNTER → 2019-09-25 12:36 | Outpatient (CLI) | payer MEDICARE, OTHER, SELFPAY ==
[2019-04-07 10:55] VITALS: BMI 41.4
[2019-08-04 13:02] VITALS: BMI 42.2
[2019-09-15 09:55] VITALS: BMI 42.3
[2019-09-18 17:53] VITALS: BMI 42.5
--- NOTE | 2019-09-25 12:38 | CT_ITS ---
STUDY: CT CHEST WITH CONTRAST REASON FOR EXAM: Female, 74 years old. History of breast cancer, study requested for follow-up. RADIATION DOSAGE (If Supplied By Facility): CTDIvol = ( 14.04 ) mGy, DLP = ( 674.73 ) mGycm TECHNIQUE: Transaxial imaging was performed following intravenous administration of IV Isovue 300 100ml. Multiplanar coronal and sagittal images were reformatted. Individualized dose optimization techniques were used for this CT. COMPARISON: 03/31/2019. FINDINGS: Lung lynch: Left lung: Left upper lobe: Small nodule within the left lung apex, posterior subpleural region, image 41 and measuring 3.7 mm, , stable. Left upper lobe nodule, image 57, slightly anteriorly and measuring 3.6 mm, stable. Lingular lobe nodule currently measuring 5.8 mm, image 67 and previously measuring 5.8 mm. Minimal lingular atelectasis. Left lower lobe: Small nodule on image 40 just posterior to the major fissure measuring 0.3 cm, stable. Second nodule on image 57 measuring 1.5 mm, stable. Nodule on image 63 measuring 2 mm, stable. Nodule image 89 measuring 1.7 mm, stable. Minimal left basilar atelectasis. Right lung: Right upper lobe Nodule within the right upper lobe, image 40, currently measuring 3.1 mm, previously measuring 2.8 mm. 2 mm nodule near the right paraspinal region, image 42 and measuring 1.7 mm. Not visualized on prior exam. The right lower lobe nodule image 49 currently measuring 2.3 mm , previously measuring 2.3 mm. Right middle lobe: 3.1 mm, image 63, stable. Nodule image 68 measuring 7.4 mm in, stable. Mild right middle lobe atelectasis. Right lower lobe: Nodule image 74 measuring 8 mm, stable. Nodule image 81, right paraspinal region measuring 2 mm, stable There is no demonstrated pleural abnormality. Heart maintains normal size with coronary artery calcifications. Normal mediastinum. Normal hilar regions. Normal enhanced pulmonary arteries. There is atherosclerotic calcification of the aortic arch with tortuosity and elongation of the aortic arch and descending thoracic aorta. There are multi-level degenerative changes of the thoracic spine. Postoperative changes of the stomach noted otherwise there is no demonstrated abnormality of the visualized upper abdomen. CT/Chest WITH Contrast IMPRESSION: Bilateral lung nodules as described above, stable in the interval. Electronically Signed: Falguni Leonard MD at 4:59 EDT , Service support ,
[2019-09-25 12:51] LABS: CREATININE FINGERSTICK 0.9 mg/dL (0.55-1.02)
== END ==
PROVIDERS: Family Provider Family Medicine; PCP Family Medicine; Referring Provider Internal Medicine Medical Oncology; Visit Provider Internal Medicine Medical Oncology
DX: C50.411 Malignant neoplasm of upper-outer quadrant of right female breast (principal)
CPT/HCPCS: 71260; Q9967

== ENCOUNTER 2019-09-29 12:02 | Outpatient (RCR) | payer MEDICARE, OTHER, SELFPAY ==
[2019-04-07 10:55] VITALS: BMI 41.4
[2019-09-15 09:55] VITALS: BMI 42.3
[2019-09-29 11:08] VITALS: BMI 42.0
[2019-09-29 12:24] LABS: Prothrombin Time Fingerstick 20.8 SEC (11.9-14.4)
== END 2019-09-29 18:00 | disposition home or self-care (01) ==
LOC: MTLAB 12:02
PROVIDERS: Family Provider Family Medicine; PCP Family Medicine; Referring Provider Internal Medicine Cardiovascular Disease; Visit Provider Internal Medicine Cardiovascular Disease
DX: I48.0 Paroxysmal atrial fibrillation (principal); I48.92 Unspecified atrial flutter; Z79.01 Long term (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 of anticoagulants
CPT/HCPCS: 36416; 85610

== ENCOUNTER 2019-10-12 10:53 | Outpatient (RCR) | payer MEDICARE, OTHER, SELFPAY ==
[2019-09-15 09:55] VITALS: BMI 42.3
[2019-10-12 11:14] LABS: Prothrombin Time Fingerstick 24.6 SEC (11.9-14.4)
== END 2019-10-12 18:00 | disposition home or self-care (01) ==
LOC: MTLAB 10:53
PROVIDERS: Family Provider Family Medicine; PCP Family Medicine; Referring Provider Internal Medicine Cardiovascular Disease; Visit Provider Internal Medicine Cardiovascular Disease
DX: I48.0 Paroxysmal atrial fibrillation (principal); I48.92 Unspecified atrial flutter; Z79.01 Long term (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 of anticoagulants
CPT/HCPCS: 36416; 85610

== ENCOUNTER → 2019-11-02 12:18 | Outpatient (CLI) | payer MEDICARE, OTHER, SELFPAY ==
[2019-09-15 09:55] VITALS: BMI 42.3
[2019-10-15 08:51] VITALS: BMI 42.2
--- NOTE | 2019-11-02 12:34 | MRI_ITS ---
STUDY: MRI BRAIN WITH AND WITHOUT CONTRAST REASON FOR EXAM: Female, 74 years old. Breast cancer head and neck pain TECHNIQUE: Standardized multiplanar fat and water weighted pulse sequences were obtained. IV Dotarem 19 was administered for the contrast portion of the examination. COMPARISON: 18 September 2019, 20 January 2019 FINDINGS: Normal size of the ventricles and extra-axial spaces for the patient's age. Normal white matter tracts of the supratentorial brain. Normal bilateral basal ganglia. Normal thalami. There is no extra-axial fluid accumulation. Normal flow voids within the major intracranial circulation suggesting patency by spin echo criteria. Normal venous enhancement. There is no enhancing intra-axial or extra-axial abnormality. Normal sella turcica, pituitary gland, infundibular stalk, optic chiasm and hypothalamus. Normal tectal plate and pineal gland. Normal midbrain, henny and medulla. Normal cerebellum. Normal basal cisterns. Normal bilateral temporal bones. Normal bilateral internal auditory canals. No demonstrated orbital abnormality, within the constraints of a routine brain study. Normal visualized paranasal sinuses. Normal calvarium and skull base. Normal visualized soft tissue structures. Normal visualized upper cervical spine. MRI/Brain W/WO Contrast IMPRESSION: Normal unenhanced and enhanced MRI of the brain. Electronically Signed: Julissa Dickey, at 16:27 EST Tel , Service support ,
[2019-11-02 12:56] LABS: CREATININE FINGERSTICK 0.9 mg/dL (0.55-1.02); EGFR FINGERSTICK > 60.0000 mL/min (>60)
== END ==
PROVIDERS: Family Provider Family Medicine; PCP Family Medicine; Referring Provider Nurse Practitioner Family; Visit Provider Nurse Practitioner Family
DX: R51 Headache (principal)
CPT/HCPCS: 70553; A9575

== ENCOUNTER 2019-11-16 12:13 | Outpatient (RCR) | payer MEDICARE, OTHER, SELFPAY ==
[2019-09-15 09:55] VITALS: BMI 42.3
[2019-10-15 08:51] VITALS: BMI 42.2
[2019-11-16 12:26] LABS: Prothrombin Time Fingerstick 24.3 SEC (11.9-14.4)
== END 2019-11-16 18:00 | disposition home or self-care (01) ==
LOC: MTLAB 12:13
PROVIDERS: Family Provider Family Medicine; PCP Family Medicine; Referring Provider Internal Medicine Cardiovascular Disease; Visit Provider Internal Medicine Cardiovascular Disease
DX: I48.0 Paroxysmal atrial fibrillation (principal); I48.92 Unspecified atrial flutter; Z79.01 Long term (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 of anticoagulants
CPT/HCPCS: 36416; 85610

== ENCOUNTER 2019-12-18 11:08 | Outpatient (RCR) | payer MEDICARE, OTHER, SELFPAY ==
[2019-09-15 09:55] VITALS: BMI 42.3
[2019-10-15 08:51] VITALS: BMI 42.2
--- NOTE | 2019-12-18 11:30 | EKG12_ITS ---
Test Reason : PRE-OP Blood Pressure : / mmHG Vent. Rate : 060 BPM Atrial Rate : 060 BPM P-R Int : 170 ms QRS Dur : 080 ms QT Int : 406 ms P-R-T Axes : 078 040 050 degrees QTc Int : 406 ms Normal sinus rhythm Low voltage QRS Borderline ECG Confirmed by STAR BERRIOS, RUSSELL ([id number]), school photograph editor KRISHAN WILCOX ([id number]) on 12/21/2019 12:21:58 PM Referred By: Juni Epstein Confirmed By:RUSSELL GRAVES MD
[2019-12-18 11:43] LABS: Absolute Lymphocyte Count 1.71 X10^3/uL (0.83-4.51); Absolute Neutrophil Count 2.6 X10^3/uL (2.0-7.7); Basophil# 0.04 X10^3/uL; Basophil% 0.8 % (0-1); Eosinophil# 0.28 X10^3/uL; Eosinophils% 5.5 % (0-5); Hematocrit 40.3 % (37-47); Hemoglobin 12.6 g/dL (12.0-15.0); Lymphocyte # 1.71 X10^3/ul (4.0); Lymphocyte % 33.8 % (19-41); Mean Corp Hgb Conc 31.3 g/dL (32-36); Mean Corpuscular Hgb 30.9 pg (27.0-32.0); Mean Corpuscular Volume 98.8 fL (81-99); Mean Platelet Vol. 8.8 fl (6.2-12.0); Monocyte# 0.44 X10^3/uL; Monocyte% 8.7 % (0-10); NRBC Flagged by Analyzer 0 % (0-5); Neutrophil # 2.58 X10^3/uL (2.7-7.7); Platelet Count 194 K/mm3 (150-450); RBC Distribution Width CV 12.9 % (11.6-14.6); RBC Distribution Width SD 46.6 fl (35.1-43.9); Red Blood Count 4.08 M/mm3 (4.2-5.4); White Blood Count 5.1 K/mm3 (4.4-11.0)
[2019-12-18 11:54] LABS: International Normalized Ratio 2.5; Prothrombin Time (Protime)PT. 26.9 SECONDS (11.7-14.9)
[2019-12-18 12:07] LABS: Anion Gap 4 (5-15); BUN 18 mg/dL (7-18); BUN/Creat Ratio 16.1 RATIO (10-20); Calcium,Total 8.4 mg/dL (8.5-10.1); Chloride 108 mmol/L (98-107); Creatinine, Serum 1.12 mg/dL (0.55-1.02); EST Glomerular Filtration Rate 50 mL/min (>60); Est Glom Filt Rate - Afr Amer 61 mL/min (>60); Glucose 94 mg/dL (74-106); Potassium 4.5 mmol/L (3.5-5.1); Sodium Level 140 mmol/L (136-145)
[2019-12-18 12:52] LABS: Partial Thromboplast Time 49.4 Seconds (24.1-36.2)
== END 2019-12-18 18:00 | disposition home or self-care (01) ==
LOC: LAB 11:08
PROVIDERS: Family Provider Family Medicine; PCP Family Medicine; Referring Provider Internal Medicine Cardiovascular Disease; Visit Provider Internal Medicine Cardiovascular Disease
DX: Z01.810 Encounter for preprocedural cardiovascular examination (principal); Z01.818 Encounter for other preprocedural examination; I48.0 Paroxysmal atrial fibrillation; I48.92 Unspecified atrial flutter; Z79.01 Long term (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 of anticoagulants
CPT/HCPCS: 36415; 80048; 85025; 85610; 85730; 93005

== ENCOUNTER → 2019-12-28 10:07 | Outpatient (CLI) | payer MEDICARE, OTHER, SELFPAY ==
[2019-09-15 09:55] VITALS: BMI 42.3
[2019-10-15 08:51] VITALS: BMI 42.2
[2019-12-28 12:54] LABS: AST(SGOT) 17 U/L (15-37); Alanine Aminotransfer ALT/SGPT 17 U/L (13-56); Albumin, Serum 3.3 g/dL (3.2-5.0); Alkaline Phosphatase 82 U/L (45-117); Anion Gap 3 (5-15); BUN 16 mg/dL (7-18); BUN/Creat Ratio 14.8 RATIO (10-20); Calcium,Total 8.4 mg/dL (8.5-10.1); Chloride 107 mmol/L (98-107); Cholesterol 186 mg/dL (200); Creatinine, Serum 1.08 mg/dL (0.55-1.02); EST Glomerular Filtration Rate 52 mL/min (>60); Est Glom Filt Rate - Afr Amer 63 mL/min (>60); Globulin 3.2 g/dL (2.2-4.2); Glucose 112 mg/dL (74-106); High Density Lipoprotein 45 mg/dL; Potassium 4.4 mmol/L (3.5-5.1); Protein, Total 6.5 g/dL (6.4-8.2); Sodium Level 139 mmol/L (136-145); Thyroid Stim Hormone (TSH) 1.92 uIU/mL (0.358-3.74); Triglycerides 177 mg/dL; Very Low Density Lipoprotein 35 mg/dL (5-40)
== END ==
PROVIDERS: PCP Family Medicine; Referring Provider Family Medicine; Visit Provider Family Medicine
DX: E11.9 Type 2 diabetes mellitus without complications (principal); I10 Essential (primary) hypertension
CPT/HCPCS: 36415; 80053; 80061; 84443

== ENCOUNTER 2020-01-19 11:06 | Outpatient (RCR) | payer MEDICARE, OTHER, SELFPAY ==
[2019-09-15 09:55] VITALS: BMI 42.3
[2019-10-15 08:51] VITALS: BMI 42.2
[2020-01-19 13:35] LABS: Prothrombin Time Fingerstick 20.5 SEC (11.9-14.4)
== END 2020-01-19 18:00 | disposition home or self-care (01) ==
LOC: LAB 11:06
PROVIDERS: Family Provider Family Medicine; PCP Family Medicine; Referring Provider Internal Medicine Cardiovascular Disease; Visit Provider Internal Medicine Cardiovascular Disease
DX: I48.0 Paroxysmal atrial fibrillation (principal); I48.92 Unspecified atrial flutter; Z79.01 Long term (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 of anticoagulants
CPT/HCPCS: 36416; 85610

== ENCOUNTER 2020-02-22 11:40 | Outpatient (RCR) | payer MEDICARE, OTHER, SELFPAY ==
[2019-09-15 09:55] VITALS: BMI 42.3
[2019-10-15 08:51] VITALS: BMI 42.2
[2020-02-02 13:11] LABS: Prothrombin Time Fingerstick 30.3 SEC (11.9-14.4)
[2020-02-22 11:50] LABS: Prothrombin Time Fingerstick 21.2 SEC (11.9-14.4)
== END 2020-02-22 18:00 | disposition home or self-care (01) ==
LOC: MTLAB 11:40
PROVIDERS: Family Provider Family Medicine; PCP Family Medicine; Referring Provider Internal Medicine Cardiovascular Disease; Visit Provider Internal Medicine Cardiovascular Disease
DX: I48.0 Paroxysmal atrial fibrillation (principal); I48.92 Unspecified atrial flutter; Z79.01 Long term (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 of anticoagulants
CPT/HCPCS: 36416; 85610

== ENCOUNTER 2020-03-14 11:47 | Outpatient (RCR) | payer MEDICARE, OTHER, SELFPAY ==
[2019-09-15 09:55] VITALS: BMI 42.3
[2019-10-15 08:51] VITALS: BMI 42.2
[2020-03-14 12:00] LABS: Prothrombin Time Fingerstick 24.9 SEC (11.9-14.4)
== END 2020-03-31 18:00 | disposition home or self-care (01) ==
LOC: MTLAB 11:47
PROVIDERS: Family Provider Family Medicine; PCP Family Medicine; Referring Provider Internal Medicine Cardiovascular Disease; Visit Provider Internal Medicine Cardiovascular Disease
DX: I48.0 Paroxysmal atrial fibrillation (principal); I48.92 Unspecified atrial flutter; Z79.01 Long term (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 of anticoagulants
CPT/HCPCS: 36416; 85610

== ENCOUNTER 2020-03-26 13:53 | Emergency (ER) | payer MEDICARE, OTHER, SELFPAY ==
[2019-09-15 09:55] VITALS: BMI 42.3
[2019-10-15 08:51] VITALS: BMI 42.2
[2020-03-26 13:55] VITALS: BP 144/75; PULSE 71; RESP 18; TEMP 36; O2SAT 95; BMI 41.3
--- NOTE | 2020-03-26 14:09 | ED.RN ---
PER DR. CHUN NOT VISUAL ACUITY NEEDED.
--- NOTE | 2020-03-26 14:14 | ED.DCSUM_ITS ---
- ER Visit Summary Date of Service: 03/26/20 Chief Complaint: Blood left eyeball History of Present Illness: The patient is a 74 F history of A. fib on Coumadin. Prior breast cancer with lumpectomy and radiation. Patient states she noticed what looks like blood on the medial aspect of her left eyeball today. Denies any pain. No vision change. No prior history. Denies any nosebleeds or bleeding from her gums. No excessive bruising, melena or hematuria. Physical Examination: Well-appearing older female no acute distress. Vital signs stable afebrile. HEENT exam unremarkable except left eye medially she has a moderate sized subconjunctival hemorrhage. Pupils round reactive light extra motions are intact. No visual complaint. No facial droop. No facial bruising or swelling. No trauma. Lungs clear to auscultation. Heart regular rhythm no murmur. Abdomen soft nontender. Patient is moving all 4 extremities. Neurovascularly intact. Neurologically she is awake alert with no focal motor deficits. Test Results: PT/INR = 2.7 Emergency Department Course and Treatment: Obvious left eyeball medial subconjunctival hemorrhage. Because she is on Coumadin will check a level. Treatment Plan: Discharged home. Outpatient follow-up. Disposition: Discharge Impression: Acute left subconjunctival hemorrhage Anticoagulated on Coumadin History of A. fib This note was generated with [employer] dictation software. It may contain incorrect words, spelling, and punctuation that were not noted in review of the chart prior to signing ED Disposition - Plan for ED Patient: Disposition: Home or Assisted Living Instructions: ED EYE INJURY Subconj Hemorrhage Referrals: J Luis Lai MD [Primary Care Provider] - As Needed
--- NOTE | 2020-03-26 14:17 | ED.DEP ---
ED Disposition - Plan for ED Patient: Disposition: Home or Assisted Living Instructions: ED EYE INJURY Subconj Hemorrhage Referrals: J Luis Lai MD [Primary Care Provider] - As Needed
[2020-03-26 14:31] LABS: International Normalized Ratio 2.7; Prothrombin Time (Protime)PT. 28.4 SECONDS (11.7-14.9)
[2020-03-26 15:18] VITALS: RESP 18
== END 2020-03-26 15:19 | disposition home or self-care (01) ==
PROVIDERS: Emergency Provider Emergency Medicine; PCP Family Medicine
DX: H11.32 Conjunctival hemorrhage, left eye (principal); I48.91 Unspecified atrial fibrillation; Z79.01 Long term (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 of anticoagulants; Z85.3 Personal history of malignant neoplasm of breast
CPT/HCPCS: 85610; 99282

== ENCOUNTER 2020-04-22 12:56 | Outpatient (RCR) | payer MEDICARE, OTHER, SELFPAY ==
[2019-09-15 09:55] VITALS: BMI 42.3
[2020-04-26 07:20] LABS: Prothrombin Time Fingerstick 30.2 SEC (11.9-14.4)
== END 2020-04-22 18:00 | disposition home or self-care (01) ==
LOC: MTLAB 12:56
PROVIDERS: Family Provider Family Medicine; PCP Family Medicine; Referring Provider Internal Medicine Cardiovascular Disease; Visit Provider Internal Medicine Cardiovascular Disease
DX: I48.0 Paroxysmal atrial fibrillation (principal); I48.92 Unspecified atrial flutter; Z79.01 Long term (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 of anticoagulants
CPT/HCPCS: 36416; 85610

== ENCOUNTER 2020-05-30 10:57 | Outpatient (RCR) | payer MEDICARE, OTHER, SELFPAY ==
[2019-09-15 09:55] VITALS: BMI 42.3
[2020-05-30 11:40] LABS: Prothrombin Time Fingerstick 40.7 SEC (11.9-14.4)
[2020-05-30 12:16] LABS: Prothrombin Time (Protime)PT. 37.1 SECONDS (11.7-14.9)
[2020-05-30 12:49] LABS: International Normalized Ratio 3.8
== END 2020-05-30 18:00 | disposition home or self-care (01) ==
LOC: MTLAB 10:57
PROVIDERS: Family Provider Family Medicine; PCP Family Medicine; Referring Provider Internal Medicine Cardiovascular Disease; Visit Provider Internal Medicine Cardiovascular Disease
DX: I48.0 Paroxysmal atrial fibrillation (principal); Z79.01 Long term (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 of anticoagulants
CPT/HCPCS: 36415; 36416; 85610

== ENCOUNTER → 2020-06-06 09:46 | Outpatient (CLI) | payer MEDICARE, OTHER, SELFPAY ==
[2019-09-15 09:55] VITALS: BMI 42.3
--- NOTE | 2020-06-06 09:47 | BI_ITS ---
MAMMOGRAPHY - BILATERAL DIAGNOSTIC REASON FOR EXAM: Female, 74 years old. Prior right lumpectomy and radiation therapy. PERTINENT HISTORY: Personal history of breast cancer. TECHNIQUE: Digital bilateral breast shlomo (3D mammographic acquisition) in the CC and MLO projections. 2-D mediolateral oblique (MLO) and craniocaudad (CC) views of both breasts were obtained. CAD: Full Field Digital Mammography with Computer Added Detection was performed. COMPARISON: Comparison is made with prior study of February 25, 2019. FINDINGS: Breast Composition: There are scattered areas of fibroglandular density. There are no dominant masses or suspicious calcifications. Since prior examination, the patient underwent a lumpectomy in the upper lateral aspect of the right breast with removal of the previously seen nodular density. Postoperative changes are seen. No other significant abnormalities are identified. BI/DIAG MAMM W/CAD, BILAT IMPRESSION: Status post lumpectomy in the upper outer quadrant of the right breast with a mild degree of postoperative scarring. One year follow-up recommended. (A) ASSESSMENT CATEGORY: BIRADS Category 2: Benign. A letter regarding these results will be sent to the patient by the facility within 30 days. Approximately 10% of breast cancers are not detected by mammography. A normal mammogram should not delay biopsy of a clinically suspicious abnormality. Electronically Signed: Forrest Rodriguez, at 12:28 EDT , Service support ,
--- NOTE | 2020-06-06 10:21 | CT_ITS ---
STUDY: CT CHEST WITH CONTRAST REASON FOR EXAM: Female, 74 years old. MULTIPLE LUNG NODULES. Hx of rt breast cancer with lumpectomy 03/2019. HTN-rx controlled RADIATION DOSAGE (If Supplied By Facility): CTDIvol = ( 14.30 ) mGy, DLP = ( 656.28 ) mGycm TECHNIQUE: Transaxial imaging was performed following intravenous administration of IV 100mL Isovue-300. Multiplanar coronal and sagittal images were reformatted. Individualized dose optimization techniques were used for this CT. COMPARISON: Comparison is made with prior examination in September 25, 2019. FINDINGS: Stable 3 mm noncalcified nodule in the lateral and chest of the right upper lobe as seen on axial image #37. Stable 2 mm nodule in the right paraspinal region. Stable 3.1 mm right middle lobe nodule. Stable 7.4 mm nodule as seen on axial image #63 in the posterior aspect of the right middle lobe. Stable subcentimeter nodules in the left lung. There are calcifications of the coronary arteries. Normal mediastinum. Normal hilar regions. Normal enhanced pulmonary arteries. There is atherosclerotic calcification of the aortic arch with tortuosity and elongation of the aortic arch and descending thoracic aorta. There are multi-level degenerative changes of the thoracic spine. There is no demonstrated abnormality of the visualized upper abdomen. CT/Chest WITH Contrast IMPRESSION: Stable multiple small bilateral pulmonary nodules. Electronically Signed: Forrest Rodriguez, at 11:04 EDT , Service support ,
== END ==
PROVIDERS: PCP Family Medicine; Referring Provider Student in an Organized Health Care Education/Training Program; Visit Provider Student in an Organized Health Care Education/Training Program
DX: R91.8 Other nonspecific abnormal finding of lung field (principal); C50.111 Malignant neoplasm of central portion of right female breast; Z85.3 Personal history of malignant neoplasm of breast
CPT/HCPCS: 71260; 77062; 77066; Q9967; G0279

== ENCOUNTER 2020-06-22 15:36 | Outpatient (RCR) | payer MEDICARE, OTHER, SELFPAY ==
[2019-09-15 09:55] VITALS: BMI 42.3
[2020-06-08 13:25] LABS: Prothrombin Time Fingerstick 38.9 SEC (11.9-14.4)
[2020-06-22 15:56] LABS: Prothrombin Time Fingerstick 38.2 SEC (11.9-14.4)
== END 2020-06-22 18:00 | disposition home or self-care (01) ==
LOC: MTLAB 15:36
PROVIDERS: Family Provider Family Medicine; PCP Family Medicine; Referring Provider Internal Medicine Cardiovascular Disease; Visit Provider Internal Medicine Cardiovascular Disease
DX: I48.0 Paroxysmal atrial fibrillation (principal); Z79.01 Long term (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 of anticoagulants
CPT/HCPCS: 36416; 85610

== ENCOUNTER 2020-08-11 10:35 | Outpatient (RCR) | payer MEDICARE, OTHER, SELFPAY ==
[2019-09-15 09:55] VITALS: BMI 42.3
[2020-06-13 14:49] VITALS: BMI 43.6
[2020-08-11 12:51] LABS: International Normalized Ratio 2.9
[2020-08-11 13:03] LABS: Vitamin D,25 Hydroxy 27.8 ng/mL
[2020-08-11 13:10] LABS: AST(SGOT) 23 U/L (15-37); Alanine Aminotransfer ALT/SGPT 22 U/L (13-56); Albumin, Serum 3.3 g/dL (3.2-5.0); Alkaline Phosphatase 70 U/L (45-117); Anion Gap 2 (5-15); BUN 16 mg/dL (7-18); BUN/Creat Ratio 15.5 RATIO (10-20); Calcium,Total 8.3 mg/dL (8.5-10.1); Chloride 107 mmol/L (98-107); Cholesterol 173 mg/dL (200); Creatinine, Serum 1.03 mg/dL (0.55-1.02); EST Glomerular Filtration Rate 55 mL/min (>60); Est Glom Filt Rate - Afr Amer 67 mL/min (>60); Globulin 3.2 g/dL (2.2-4.2); Glucose 123 mg/dL (74-106); High Density Lipoprotein 48 mg/dL; Potassium 4.2 mmol/L (3.5-5.1); Protein, Total 6.5 g/dL (6.4-8.2); Sodium Level 138 mmol/L (136-145); Thyroid Stim Hormone (TSH) 1.87 uIU/mL (0.358-3.74); Triglycerides 111 mg/dL; Very Low Density Lipoprotein 22 mg/dL (5-40)
== END 2020-08-11 18:00 | disposition home or self-care (01) ==
LOC: MTLAB 10:35
PROVIDERS: Family Provider Family Medicine; PCP Family Medicine; Referring Provider Internal Medicine Cardiovascular Disease; Visit Provider Internal Medicine Cardiovascular Disease
DX: I48.0 Paroxysmal atrial fibrillation (principal); Z79.01 Long term (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 of anticoagulants; M81.0 Age-related osteoporosis without current pathological fracture; E11.9 Type 2 diabetes mellitus without complications
CPT/HCPCS: 36415; 80053; 80061; 82306; 84443; 85610

== ENCOUNTER 2020-09-27 13:19 | Outpatient (RCR) | payer MEDICARE, OTHER, SELFPAY ==
[2019-09-15 09:55] VITALS: BMI 42.3
[2020-06-13 14:49] VITALS: BMI 43.6
[2020-09-12 11:11] LABS: Prothrombin Time Fingerstick 22.5 SEC (11.9-14.4)
[2020-09-27 13:35] LABS: Prothrombin Time Fingerstick 29.9 SEC (11.9-14.4)
== END 2020-09-27 18:00 | disposition home or self-care (01) ==
LOC: MTLAB 13:19
PROVIDERS: Family Provider Family Medicine; PCP Family Medicine; Referring Provider Internal Medicine Cardiovascular Disease; Visit Provider Internal Medicine Cardiovascular Disease
DX: I48.0 Paroxysmal atrial fibrillation (principal); Z79.01 Long term (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 of anticoagulants
CPT/HCPCS: 36416; 85610

== ENCOUNTER 2020-11-21 10:29 | Outpatient (RCR) | payer MEDICARE, OTHER, SELFPAY ==
[2019-09-15 09:55] VITALS: BMI 42.3
[2020-06-13 14:49] VITALS: BMI 43.6
[2020-11-21 11:01] LABS: Prothrombin Time Fingerstick 22.8 SEC (11.9-14.4)
== END 2020-11-21 18:00 | disposition home or self-care (01) ==
LOC: MTLAB 10:29
PROVIDERS: Family Provider Family Medicine; PCP Family Medicine; Referring Provider Internal Medicine Cardiovascular Disease; Visit Provider Internal Medicine Cardiovascular Disease
DX: I48.0 Paroxysmal atrial fibrillation (principal); Z79.01 Long term (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 of anticoagulants
CPT/HCPCS: 36416; 85610

== ENCOUNTER → 2021-01-31 13:45 | Outpatient (CLI) | payer MEDICARE, OTHER, SELFPAY ==
[2019-09-15 09:55] VITALS: BMI 42.3
[2021-01-19 12:15] VITALS: BMI 41.0
--- NOTE | 2021-01-31 13:47 | ECHOCS_ITS ---
Version 2 Reason For Study: DYSPNEA/SOB Procedure This was a 2D Doppler, Color Flow transthoracic echocardiogram. The study was technically difficult. Due to body habitus. Contrast injection was performed. Exam performed in department. Left Ventricle Normal LV size. Left ventricular systolic function is normal. The estimated ejection fraction is 60 %. Stage 1 diastolic dysfunction. No regional wall motion abnormalities noted. Right Ventricle Normal RV size. Normal systolic function. Atria Normal left atrium. Mitral Valve Normal mitral valve. Tricuspid Valve The tricuspid valve is not well visualized. Aortic Valve The aortic valve is not well visualized. Mild (1+) aortic valve insufficiency. Pulmonic Valve The pulmonic valve is not well visualized. Great Vessels Normal aortic root. Pericardium/Pleural No pericardial effusion. Medication 22 gauge I.V. with prn adaptor inserted into right arm. Diluted definity 3.0ml given slow IV push to enhance endocardial definition. MMode/2D Measurements & Calculations LVIDd: 4.7 cm IVSd: 1.1 cm Ao root diam: 4.0 cm LVIDs: 3.2 cm LVPWd: 1.1 cm FS: 32.0 % LAV(MOD-bp): 59.1 ml LA A4 area: 19.8 cm2 LA dimension(2D): 3.8 cm LAV(MOD-bp) Indexed: 31.0 ml/m2 LAV(MOD-sp2): 54.2 ml LAV(MOD-sp4): 56.8 ml Doppler Measurements & Calculations MV E max steve: 68.0 cm/sec Lat Peak E' Steve: 9.2 cm/sec Med Peak E' Steve: 7.4 cm/sec MV A max steve: 81.3 cm/sec E/E' lat: 7.4 E/E' med: 9.2 MV E/A: 0.84 Ao V2 max: 150.0 cm/sec AI max steve: 437.1 cm/sec LV V1 max: 112.7 cm/sec Ao max P.0 mmHg AI max P.5 mmHg LV V1 max P.1 mmHg AI dec slope: 231.3 cm/sec2 AI P1/2t: 553.4 msec Interpretation Summary Normal LV size. Left ventricular systolic function is normal. The estimated ejection fraction is 60 %. Stage 1 diastolic dysfunction. Contrast injection was performed. Ordering Physician: Juni Epstein Referring Physician: Myles Lai Performed By: Marisela Garibay, REBECCA, RVT
== END ==
PROVIDERS: PCP Family Medicine; Referring Provider Internal Medicine Cardiovascular Disease; Visit Provider Internal Medicine Cardiovascular Disease
DX: R06.02 Shortness of breath (principal); R06.00 Dyspnea, unspecified; I34.0 Nonrheumatic mitral (valve) insufficiency
CPT/HCPCS: 36415; 83880; 85610; 93306; Q9957; A4216; C8929

== ENCOUNTER 2021-01-31 14:44 | Outpatient (RCR) | payer MEDICARE, OTHER, SELFPAY ==
[2019-09-15 09:55] VITALS: BMI 42.3
[2020-06-13 14:49] VITALS: BMI 43.6
[2021-01-19 12:15] VITALS: BMI 41.0
[2021-01-31 16:51] LABS: International Normalized Ratio 2.1; Prothrombin Time (Protime)PT. 22.9 SECONDS (11.7-14.9)
[2021-01-31 17:14] LABS: BNP,B-Type NATRIURETIC PEPTIDE 122.1 pg/mL (0-100)
== END 2021-01-31 18:00 | disposition home or self-care (01) ==
LOC: LAB 14:44
PROVIDERS: Family Provider Family Medicine; PCP Family Medicine; Referring Provider Internal Medicine Cardiovascular Disease; Visit Provider Internal Medicine Cardiovascular Disease
DX: I48.0 Paroxysmal atrial fibrillation (principal); Z79.01 Long term (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 of anticoagulants
CPT/HCPCS: 36415; 83880; 85610

== ENCOUNTER → 2021-03-23 14:14 | Outpatient (CLI) | payer MEDICARE, OTHER, SELFPAY ==
[2019-09-15 09:55] VITALS: BMI 42.3
[2021-01-19 12:15] VITALS: BMI 41.0
[2021-03-23 15:19] LABS: Hematocrit 37.2 % (37-47); Hemoglobin 11.3 g/dL (12.0-15.0); Mean Corp Hgb Conc 30.4 g/dL (32-36); Mean Corpuscular Hgb 30.1 pg (27.0-32.0); Mean Corpuscular Volume 98.9 fL (81-99); Platelet Count 224 K/mm3 (150-450); RBC Distribution Width CV 13.8 % (11.6-14.6); RBC Distribution Width SD 50.4 fl (35.1-43.9); Red Blood Count 3.76 M/mm3 (4.2-5.4); White Blood Count 4.8 K/mm3 (4.4-11.0)
== END ==
PROVIDERS: PCP Family Medicine; Visit Provider Nurse Practitioner Family
DX: K64.9 Unspecified hemorrhoids (principal)
CPT/HCPCS: 36415; 85027

== ENCOUNTER 2021-03-28 14:38 | Outpatient (RCR) | payer MEDICARE, OTHER, SELFPAY ==
[2019-09-15 09:55] VITALS: BMI 42.3
[2021-01-19 12:15] VITALS: BMI 41.0
[2021-03-10 11:31] LABS: INR Fingerstick 3.2; Prothrombin Time Fingerstick 35.1 SEC (11.9-14.4)
[2021-03-20 13:11] LABS: INR Fingerstick 2.1; Prothrombin Time Fingerstick 23.8 SEC (11.9-14.4)
--- NOTE | 2021-03-28 14:41 | RAD_ITS ---
STUDY: X-RAY - LUMBAR SPINE REASON FOR EXAM: Female, 75 years old. DDD TECHNIQUE: 4 view(s) of the lumbar spine were obtained. COMPARISON: 09/16/2017 FINDINGS: Normal lumbar lordosis. Moderate levoscoliosis centered at L3. Status post transpedicular fixation at L5/S1 with anatomic alignment. 5 mm retrolisthesis of L3 on L4. There is multilevel endplate spondylosis of the lumbar vertebrae. There is multi-level degenerative disc disease with multi-level disc space narrowing. The soft tissue structures are unremarkable. RAD/L/S Spine Min 4 Views IMPRESSION: 1. Status post transpedicular fixation at L5/S1 with anatomic alignment. 2. Moderate levoscoliosis centered at L3 with moderate diffuse degenerative disc disease with 5 mm retrolisthesis of L3 on L4. Electronically Signed: Higinio David MD at 8:10 EDT Tel , Service support ,
[2021-03-28 14:56] LABS: INR Fingerstick 2.1; Prothrombin Time Fingerstick 23.8 SEC (11.9-14.4)
== END 2021-03-28 18:00 | disposition home or self-care (01) ==
LOC: MTLAB 14:38
PROVIDERS: Family Provider Family Medicine; PCP Family Medicine; Referring Provider Internal Medicine Cardiovascular Disease; Visit Provider Internal Medicine Cardiovascular Disease
DX: I48.0 Paroxysmal atrial fibrillation (principal); Z79.01 Long term (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 of anticoagulants
CPT/HCPCS: 36416; 72110; 85610

== ENCOUNTER 2021-04-24 10:40 | Outpatient (RCR) | payer MEDICARE, OTHER, SELFPAY ==
[2019-09-15 09:55] VITALS: BMI 42.3
[2021-01-19 12:15] VITALS: BMI 41.0
[2021-04-03 12:40] LABS: Prothrombin Time Fingerstick 22.4 SEC (11.9-14.4)
[2021-04-24 10:56] LABS: INR Fingerstick 2.7
== END 2021-04-24 18:00 | disposition home or self-care (01) ==
LOC: MTLAB 10:40
PROVIDERS: Family Provider Family Medicine; PCP Family Medicine; Referring Provider Internal Medicine Cardiovascular Disease; Visit Provider Internal Medicine Cardiovascular Disease
DX: I48.0 Paroxysmal atrial fibrillation (principal); Z79.01 Long term (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 of anticoagulants
CPT/HCPCS: 36416; 85610

== ENCOUNTER → 2021-05-03 16:32 | Outpatient (CLI) | payer MEDICARE, OTHER, SELFPAY ==
[2019-09-15 09:55] VITALS: BMI 42.3
[2021-01-19 12:15] VITALS: BMI 41.0
--- NOTE | 2021-05-03 16:56 | RAD_ITS ---
INDICATION: FOOT PAIN EXAMINATION/TECHNIQUE: X-RAY - RIGHT XR Foot Min 3 Views COMPARISON: None. FINDINGS: No acute fracture or malalignment. No blastic or lytic lesions. Mild degenerative changes of the first metatarsal phalangeal joint and midfoot. Hallux valgus deformity The soft tissues are unremarkable. Plantar heel spur. Vascular calcifications. RAD/Foot min 3 Views IMPRESSION: No acute radiographic abnormalities. 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 1st toe bunion. Heel spur. Electronically Signed: Myles Anne MD at 19:27 EDT Tel , Service support ,
== END ==
PROVIDERS: PCP Family Medicine; Referring Provider Family Medicine; Visit Provider Family Medicine
DX: M79.671 Pain in right foot (principal)
CPT/HCPCS: 73630

== ENCOUNTER → 2021-05-29 18:10 | Outpatient (CLI) | payer MEDICARE, OTHER, SELFPAY ==
[2019-09-15 09:55] VITALS: BMI 42.3
[2021-01-19 12:15] VITALS: BMI 41.0
== END ==
PROVIDERS: Visit Provider Family Medicine
DX: Z20.822 Contact with and (suspected) exposure to COVID-19 (principal)
CPT/HCPCS: 87635; U0005; U0003

== ENCOUNTER 2021-05-30 11:00 | Outpatient (RCR) | payer MEDICARE, OTHER, SELFPAY ==
[2019-09-15 09:55] VITALS: BMI 42.3
[2021-01-19 12:15] VITALS: BMI 41.0
--- NOTE | 2021-04-12 10:01 | HP.PTEVAL ---
Patient's Visit Information CHARLIE ULLOA is a 75 year old F referred to Physical Therapy by Dr. J Luis Guerrero MD with a diagnosis of LUMBAR DDD. Date of Evaluation: 04/12/21 Physical Therapist: Emely Parks PT, Cert MDT - Visit Plan Frequency: 2-3x /Week Duration: 4-6 Weeks Plan: POSTURE CORRECTION/STRENGTHENING, INSTRUCTION IN APPROPRIATE BODY MECHANICS AND ACTIVITY MODIFICATIONS. DLS STARTING WITH A NEUTRAL SPINE PROGRESSING ROM TOLERATED. QUINN LE ROM, STRETCHING AND STRENGTHENING. HEP INSTRUCTION. - Subjective Work/Leisure: RETIRED. LIVES WITH SON AND DAUGHTER IN [place] AND THEY HAVE 3 KIDS. 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 Present symptoms: LEFT LOW BACK PAIN. PATIENT REPORTS RESIDUAL R LE SX'S FROM A PAST BACK SURGERY. Present since: ABOUT A MONTH AGO. Pain Scale: WORST 8/10, LEAST 1/10. Currently: 4/10. Commenced as a result of: NO APPARENT REASON. Symptoms at onset: L LOW BACK. Worse: STANDING, TRYING TO CHANGE THE SHEETS ON THE BED, LIFTING, WALKING. PEELING POTATOE'S, DOING DISHES. Better: PREDNISONE, RECLINING, HEATER WITH VIBRATOR, LYING DOWN. Disturbed sleep: NO - SLEEPS WELL WITH MEDS. WAS DISTRUBING SLEEP PRIOR TO THE PREDNISONE. Previous history/Previous treatment: LUMBAR FUSION 1999 WITH RIGHT LE RADICULOPATHY. PHYSICAL THERAPY - WITH BENEFIT. LUMBAR THA'S WITH DR. DAY BUT DIDN'T SEEM TO HELP MUCH. Treatment this episode: PREDNISONE - ENDED LAST SATURDAY. THE PAIN IS COMING BACK. Coughing/sneezing/straining: POSITIVE. Gait: MUCH MORE CAUTIOUS AND WALK A LOT SLOWER. COULD BARELY STAND UP STRAIGHT AT ALL BEFORE THE PREDNISONE. Difficulty initiating urinatin: NO. Accidents: NO. Unexplained weight loss: NO. Imaging: RECENT LUMBAR X-RAYS: FINDINGS: Normal lumbar lordosis. Moderate levoscoliosis centered at L3. Status. post transpedicular fixation at L5/S1 with anatomic alignment. 5 mm. retrolisthesis of L3 on L4. There is multilevel endplate spondylosis of the lumbar vertebrae. There is. multi-level degenerative disc disease with multi-level disc space. narrowing. The soft tissue structures are unremarkable. . RAD/L/S Spine Min 4 Views. IMPRESSION: 1. Status post transpedicular fixation at L5/S1 with anatomic alignment. 2. Moderate levoscoliosis centered at L3 with moderate diffuse. degenerative disc disease with 5 mm retrolisthesis of L3 on L4. PMH: ARTHRITIS, ATRIAL FIB - CONTROLLED. HTN. IBS. 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 B TKR'S. H/O R WRIST FX. H/O BREAST CANCER TREATED WITH LUMPECTOMY AND RADIATION. GASTRIC BYPASS SX 2008. OTHER: PATIENT REPORTS DR. GUERRERO RECOMMENDED PAIN MGMT BUT SHE DECLINED FOR NOW. - Objective Sitting/Standing Posture: POOR. SCOLIOSIS. INCREASED TRUNK FLEXION. Active Correction of posture: BETTER. Other Observations: INDEP SLOW GAIT INTO PT WITHOUT ANY ASSISTIVE DEVICES OR LOB. INCREASED TRUNK FLEXION. INDEP TRANSFERS WITH UE ASSIST. Motor deficit: RIGHT LE 5/5 WITH MMT'ING EXCEPT HIP GRADED 4/5. LLE: HIP 4-/5, KNEE EXT 4/5, KNEE FLEX 4/5 ANKLE 5/5. Sensory deficit: QUINN LE LIGHT TOUCH SENSATION GROSSLY INTACT AND SYMMETRICAL. ROM deficit: TIGHT QUINN HIP FLEXORS. Reflexes: NT. Dural Signs: NEGATIVE QUINN LE'S. Lumbar mvmt loss: flex - MOD. ext - MOD. R SG - MOD. L SG - MOD. PATIENT C/O INCREASED LEFT LOW BACK PAIN WITH LUMBAR ROM TESTING ALL PLANES. Core strength: POOR. Palpation: TENDERNESS WITH PALPATION OF THE ENTIRE LUMBOSACRAL REGIONS AND LEFT PARASPINALS. TREATMENT: NEUROMUSCULAR REEDUCATION - RETRAINING OF MVMT AND POSTURE FOR SITTING, LYING AND STANDING ACTIVITIES. - Goals Goal 1:: DECREASE C/O LOW BACK PAIN Goal Time Frame: 4-6 Weeks Goal 2:: IMPROVE PERSONAL CARE, LIFTING, WALKING, SITTING, STANDING, SOCIAL LIFE, TRAVEL AND HOMEMAKING FUNCTION. Goal Time Frame: 4-6 Weeks Goal 3:: INSTRUCT IN PROPHYLAXIS Goal Time Frame: 4-6 Weeks - Anticipated Interventions Patient/Client Instruction: Educate patient on: Condition, Plan of Care, Risk Factors, Benefits of Fitness Program For the Purpose of:: To improve self management Therapeutic Exercise to Include: Strength training, Body mechanics, Postural training, Flexibilty training, Gait and locomotor training, Neuromotor development, In an aquatic setting, Dynamic Lumbar Stabilization For the Purpose of:: To decrease pain, To increase ROM, To improve muscle performance and motor function, To increase tolerance to activity/condition/position, To improve ability of physical actions for home/community/work/leisure Cryotherapy (ice pack, ice massage): Yes Thermo therapy (hot pack): Yes Ultrasound (thermal/non thermal): Yes For the Purpose of:: To decrease pain, To improve nutrient delivery to tissue Thank you for the opportunity to evaluate your patient. For Medicare and Medicare HMO plans, please review the plan of care and approve it. It will need to be FAXED BACK to us at [phone] for Medicare purposes. For Medicare only, by signing this I certify the plan of care. Please let me know if there are questions or concerns regarding this plan of care. Physician Signature: Date:
--- NOTE | 2021-05-19 12:06 | HP.PTREVAL ---
Dr. J Luis Lai MD, It has been my pleasure to treat CHARLIE ULLOA over the last 11 visits for LUMBAR DDD. Please see the progress note below for an update on the physical therapy plan of care! Subjective: PATIENT REPORTS SHE FEELS ABOUT 80% BETTER. STATES SHE STILL IS LIMITED BY BACK PAIN WITH PROLONGED WALKING AND STANDING. PATIENT REPORTS SHE CAN GET THE PAIN DOWN TO A 1/10 IN LYING NOW AND STARTING TO USE HEAT IS HELPING TOO. PATIENT REPORTS THAT WALKING BACK TO THE TREATMENT ROOM HERE IN PT IS SO MUCH EASIER NOW THAN THE FIRST TIME. Objective/Function: PATIENT WAS SEEN TODAY FOR RE-ASSESSMENT OF PROGRESS TOWARD THE SET PT GOALS AND THE NEED FOR FURTHER PHYSICAL THERAPY VS READINESS FOR DISCHARGE. PATIENT IS A GOOD CANDIDATE TO CONTINUE PT BASED ON PROGRESS MADE AND ROOM FOR FUTHER IMPROVEMENT. SHE IS AGREEABLE. UPON EXAM TODAY: INDEP GAIT INTO PT WITHOUT ANY ASSISTIVE DEVICES OR LOB. FAIR CADANCE - IMPROVED. TUG = 11.4 SECONDS. INDEP TRANSFERS WITHOUT UE ASSIST TODAY. Motor deficit: RIGHT LE 5/5 WITH MMT'ING EXCEPT HIP GRADED 4/5. LLE: HIP 4/5, KNEE EXT 5/5, KNEE FLEX 5/5 ANKLE 5/5. Sensory deficit: QUINN LE LIGHT TOUCH SENSATION GROSSLY INTACT AND SYMMETRICAL. ROM deficit: TIGHT QUINN HIP FLEXORS. Dural Signs: NEGATIVE QUINN LE'S. Lumbar mvmt loss: flex - MOD. ext - MIN. R SG - MIN. L SG - MOD. PATIENT DENIES INCREASED LBP WITH LUMBAR ROM TESTING ALL PLANES TODAY. Core strength: POOR. Palpation: PATIENT IS STILL WITH TENDERNESS WITH PALPATION OF THE ENTIRE LUMBOSACRAL REGIONS AND LEFT PARASPINALS BUT PATIENT REPORTS IT IS A LOT LESS TENDER NOW COMPARED TO BEFORE STARTING PT. PATIENT TOLERATED RE-EVAL AND EX VERY WELL TODAY. Plan Plan: CONTINUE PT 2-3 TIMES A WEEK X 10 MORE VISITS FOR POSTURE CORRECTION/STRENGTHENING, INSTRUCTION IN APPROPRIATE BODY MECHANICS AND ACTIVITY MODIFICATIONS. DLS STARTING WITH A NEUTRAL SPINE PROGRESSING ROM TOLERATED. QUINN LE ROM, STRETCHING AND STRENGTHENING. HEP INSTRUCTION. Goals Goal 1:: DECREASE C/O LOW BACK PAIN Goal Time Frame: 4-6 Weeks Goal Progress: Progressing Goal 2:: IMPROVE PERSONAL CARE, LIFTING, WALKING, SITTING, STANDING, SOCIAL LIFE, TRAVEL AND HOMEMAKING FUNCTION. Goal Time Frame: 4-6 Weeks Goal Progress: Progressing Goal 3:: INSTRUCT IN PROPHYLAXIS Goal Time Frame: 4-6 Weeks Goal Progress: Progressing Anticipated Interventions Patient/Client Instruction: Educate patient on: Condition, Plan of Care, Risk Factors, Benefits of Fitness Program For the Purpose of:: To improve self management Therapeutic Exercise to Include: Strength training, Body mechanics, Postural training, Flexibilty training, Gait and locomotor training, Neuromotor development, In an aquatic setting, Dynamic Lumbar Stabilization For the Purpose of:: To decrease pain, To increase ROM, To improve muscle performance and motor function, To increase tolerance to activity/condition/position, To improve ability of physical actions for home/community/work/leisure Cryotherapy (ice pack, ice massage): Yes Thermo therapy (hot pack): Yes Ultrasound (thermal/non thermal): Yes For the Purpose of:: To decrease pain, To improve nutrient delivery to tissue Please do not hesitate to contact me at [phone] by phone or if you have questions or concerns regarding this new plan of care! Sincerely, Emely Parks, PT, Cert MDT
--- NOTE | 2021-09-11 08:51 | HP.PT.NRP ---
CHARLIE ULLOA was seen in my office for initial evaluation on 04/12/21. The following Plan of Care was established for this patient: Initial Frequency: 2-3x /Week Initial Duration: 4-6 Weeks Patient/Client Instruction: Educate patient on: Condition, Plan of Care, Risk Factors, Benefits of Fitness Program For the Purpose of:: To improve self management Therapeutic Exercise to Include: Strength training, Body mechanics, Postural training, Flexibilty training, Gait and locomotor training, Neuromotor development, In an aquatic setting, Dynamic Lumbar Stabilization For the Purpose of:: To decrease pain, To increase ROM, To improve muscle performance and motor function, To increase tolerance to activity/condition/position, To improve ability of physical actions for home/community/work/leisure Cryotherapy (ice pack, ice massage): Yes Thermo therapy (hot pack): Yes Ultrasound (thermal/non thermal): Yes For the Purpose of:: To decrease pain, To improve nutrient delivery to tissue This patient was last seen in our office 05/30/21. Pertinent comments regarding their Physical therapy will appear below: This patient has not returned to Physical Therapy and is appropriate to return to MD for further follow-up as needed. At this point I will be discontinuing this patient from physical therapy. I would be happy to see this patient again in the future if found appropriate by the physician. Thank you! Emely Parks, PT, Cert MDT Balance/Gait/Functional tests - Balance/Special Test Scores Oswestry Low Back Score: 19
== END 2021-05-30 19:00 | disposition home or self-care (01) ==
LOC: PT 11:00
PROVIDERS: PCP Family Medicine; Referring Provider Family Medicine; Visit Provider Family Medicine
DX: M51.36 Other intervertebral disc degeneration, lumbar region (principal)
CPT/HCPCS: 97110; 97112; 97162; 97164; 97530

== ENCOUNTER 2021-05-30 11:52 | Outpatient (RCR) | payer MEDICARE, OTHER, SELFPAY ==
[2019-09-15 09:55] VITALS: BMI 42.3
[2021-01-19 12:15] VITALS: BMI 41.0
[2021-05-30 12:01] LABS: INR Fingerstick 1.7
== END 2021-05-30 18:00 | disposition home or self-care (01) ==
LOC: MTLAB 11:52
PROVIDERS: Family Provider Family Medicine; PCP Family Medicine; Referring Provider Internal Medicine Cardiovascular Disease; Visit Provider Internal Medicine Cardiovascular Disease
DX: I48.0 Paroxysmal atrial fibrillation (principal); I48.92 Unspecified atrial flutter; Z79.01 Long term (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 of anticoagulants
CPT/HCPCS: 36416; 85610

== ENCOUNTER → 2021-06-12 10:38 | Outpatient (CLI) | payer MEDICARE, OTHER, SELFPAY ==
[2019-09-15 09:55] VITALS: BMI 42.3
[2021-01-19 12:15] VITALS: BMI 41.0
--- NOTE | 2021-06-12 10:43 | BI_ITS ---
MAMMOGRAPHY - BILATERAL SCREENING REASON FOR EXAM: Female, 75 years old. Routine annual screening examination. PERTINENT HISTORY: Personal history of breast cancer. Prior right lumpectomy. Remote left excisional breast biopsy. TECHNIQUE: Digital bilateral breast doc (3D mammographic acquisition) in the CC and MLO projections. 2-D mediolateral oblique (MLO) and craniocaudad (CC) views of both breasts were obtained. CAD: Full Field Digital Mammography with Computer Added Detection was performed. COMPARISON: Comparison is made with prior study dated 06/06/2020 and 03/17/2019. FINDINGS: Breast Composition: There are scattered areas of fibroglandular density. There are no dominant masses or suspicious calcifications. The patient is status post lumpectomy in the upper lateral aspect of the right breast with the resultant postoperative architectural distortion. This is unchanged. No other significant abnormalities are identified. There has been no significant change since the prior study. BI/SCRN MAMM (CAD)W/DOC BILAT IMPRESSION: Stable bilateral screening mammogram. Yearly follow-up mammogram recommended. (A) ASSESSMENT CATEGORY: BIRADS Category 2: Benign. A letter regarding these results will be sent to the patient by the facility within 30 days. Approximately 10% of breast cancers are not detected by mammography. A normal mammogram should not delay biopsy of a clinically suspicious abnormality. [id number] Electronically Signed: Forrest Rodriguez MD at 11:33 EDT , Service support ,
== END ==
PROVIDERS: PCP Family Medicine; Referring Provider Student in an Organized Health Care Education/Training Program; Visit Provider Student in an Organized Health Care Education/Training Program
DX: Z12.31 Encounter for screening mammogram for malignant neoplasm of breast (principal)
CPT/HCPCS: 77063; 77067

== ENCOUNTER → 2021-06-13 08:06 | Outpatient (CLI) | payer MEDICARE, OTHER, SELFPAY ==
[2019-09-15 09:55] VITALS: BMI 42.3
[2021-01-19 12:15] VITALS: BMI 41.0
--- NOTE | 2021-06-13 08:09 | CT_ITS ---
STUDY: CT CHEST WITH CONTRAST REASON FOR EXAM: Female, 75 years old. LUNG NODULES RADIATION DOSAGE (If Supplied By Facility): CTDIvol = ( 16.06 ) mGy, DLP = ( 627.35 ) mGycm TECHNIQUE: Transaxial imaging was performed following intravenous administration of IV 100mL Isovue-300. Multiplanar coronal and sagittal images were reformatted. Individualized dose optimization techniques were used for this CT. COMPARISON: Comparison is made with prior study dated 06/06/2020. FINDINGS: Status post right total shoulder replacement. Stable 3 mm noncalcified nodule in the lateral aspect of the right upper lobe as seen on axial image #34. Stable 2 mm nodule in the right paraspinal region. Stable 7.4 mm nodule in the posterior aspect of the right middle lobe as seen on axial image 58. Stable tiny subcentimeter nodules at the left lung base. There is no demonstrated pleural abnormality. Normal heart and pericardium. There are calcifications of the coronary arteries. Normal mediastinum. Normal hilar regions. Normal enhanced pulmonary arteries. Dilatation of the descending thoracic aorta with a transverse dimension of 4.4 cm. There are multi-level degenerative changes of the thoracic spine. There is no demonstrated abnormality of the visualized upper abdomen. CT/Chest WITH Contrast IMPRESSION: Stable examination. Electronically Signed: Forrest Rodriguez MD at 15:12 EDT , Service support ,
== END ==
PROVIDERS: PCP Family Medicine; Referring Provider Internal Medicine Medical Oncology; Visit Provider Internal Medicine Medical Oncology
DX: R91.8 Other nonspecific abnormal finding of lung field (principal)
CPT/HCPCS: 71260; Q9967

== ENCOUNTER 2021-06-28 12:01 | Outpatient (RCR) | payer MEDICARE, OTHER, SELFPAY ==
[2019-09-15 09:55] VITALS: BMI 42.3
[2021-01-19 12:15] VITALS: BMI 41.0
[2021-06-15 15:26] VITALS: BMI 43.7
[2021-06-28 12:11] LABS: INR Fingerstick 2.7
== END 2021-06-28 18:00 | disposition home or self-care (01) ==
LOC: MTLAB 12:01
PROVIDERS: Family Provider Family Medicine; PCP Family Medicine; Referring Provider Internal Medicine Cardiovascular Disease; Visit Provider Internal Medicine Cardiovascular Disease
DX: I48.0 Paroxysmal atrial fibrillation (principal); I48.92 Unspecified atrial flutter; Z79.01 Long term (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 of anticoagulants
CPT/HCPCS: 36416; 85610

== ENCOUNTER 2021-08-02 10:47 | Outpatient (RCR) | payer MEDICARE, OTHER, SELFPAY ==
[2019-09-15 09:55] VITALS: BMI 42.3
[2021-06-15 15:26] VITALS: BMI 43.7
[2021-08-02 11:01] LABS: INR Fingerstick 2.6; Prothrombin Time Fingerstick 29.3 SEC (11.9-14.4)
== END 2021-08-02 18:00 | disposition home or self-care (01) ==
LOC: MTLAB 10:47
PROVIDERS: Family Provider Family Medicine; PCP Family Medicine; Referring Provider Internal Medicine Cardiovascular Disease; Visit Provider Internal Medicine Cardiovascular Disease
DX: I48.0 Paroxysmal atrial fibrillation (principal); I48.92 Unspecified atrial flutter; Z79.01 Long term (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 of anticoagulants
CPT/HCPCS: 36416; 85610

== ENCOUNTER → 2021-08-16 10:55 | Outpatient (CLI) | payer MEDICARE, OTHER, SELFPAY ==
[2019-09-15 09:55] VITALS: BMI 42.3
--- NOTE | 2021-08-16 10:58 | RAD_ITS ---
STUDY: X-RAY - LEFT SHOULDER REASON FOR EXAM: Left shoulder pain. TECHNIQUE: 4 view(s) of the shoulder. COMPARISON: None. FINDINGS: There are marginal osteophytes of the humeral head, subchondral sclerosis and joint space loss of the glenohumeral articulation. There are small undersurface osteophytes of the acromioclavicular joint. Normal acromion. Normal humeral head and visualized proximal humerus. The soft tissue structures are unremarkable. Normal visualized pulmonary apex. RAD/Shoulder min 2 Views IMPRESSION: Glenohumeral arthrosis. Small undersurface osteophytes of the acromioclavicular joint. Electronically Signed: Cristopher Pineda MD at 11:23 EDT Tel , Service support ,
== END ==
PROVIDERS: PCP Family Medicine; Referring Provider Family Medicine; Visit Provider Family Medicine
DX: M25.512 Pain in left shoulder (principal)
CPT/HCPCS: 73030

== ENCOUNTER 2021-09-04 10:37 | Outpatient (RCR) | payer MEDICARE, OTHER, SELFPAY ==
[2019-09-15 09:55] VITALS: BMI 42.3
[2021-09-01 01:28] VITALS: BMI 43.7
[2021-09-04 10:50] LABS: INR Fingerstick 2.4; Prothrombin Time Fingerstick 26.9 SEC (11.9-14.4)
== END 2021-10-01 18:00 | disposition home or self-care (01) ==
LOC: MTLAB 10:37
PROVIDERS: Family Provider Family Medicine; PCP Family Medicine; Referring Provider Internal Medicine Cardiovascular Disease; Visit Provider Internal Medicine Cardiovascular Disease
DX: I48.0 Paroxysmal atrial fibrillation (principal); I48.92 Unspecified atrial flutter; Z79.01 Long term (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 of anticoagulants
CPT/HCPCS: 36416; 85610

== ENCOUNTER → 2021-10-05 17:02 | Outpatient (CLI) | payer MEDICARE, OTHER, SELFPAY ==
[2019-09-15 09:55] VITALS: BMI 42.3
--- NOTE | 2021-10-05 17:10 | MRI_ITS ---
STUDY: MRI LEFT SHOULDER REASON FOR EXAM: Left shoulder pain for 6-8 weeks, tingling extending down left arm. TECHNIQUE: Standardized fat and water weighted pulse sequences were obtained in all 3 orthogonal planes. COMPARISON: Radiographs 08/16/2021. FINDINGS: There is supraspinatus tendinosis and a linear high-grade partial-thickness tear of the articular surface of the distal supraspinatus tendon at the greater tuberosity insertion (T2 coronal image 9). Normal infraspinatus tendon. There is mild subscapularis tendinosis (proton-density axial image 11) without discrete tendon tear. Normal teres minor tendon. Normal supraspinatus muscle. Normal infraspinatus muscle. Normal subscapularis muscle. Normal teres minor muscle. There is glenohumeral arthrosis with marginal osteophytes of the humeral head, chondral loss, subchondral cystic change of the glenoid and subchondral bone edema of the humeral head and glenoid (T2 coronal images 9-14). There is a glenohumeral joint effusion. There is mild tendinosis of the intracapsular long biceps tendon (T2 coronal image 6) and fluid with septations in the bicipital tendon sheath (T2 axial images 11-16) suggestive of bicipital tenosynovitis. There is diffuse degeneration of the labrum. Normal capsulo- ligamentous complex. There is acromioclavicular arthrosis without undersurface osteophytes abutting the supraspinatus musculotendinous junction (T2 sagittal image 9). There is a Type I morphology (flat undersurface), with an anterior downsloping orientation. There is no subacromial-subdeltoid bursal fluid. Normal visualized coracohumeral and coracoacromial ligaments. Normal deltoid muscle. Normal trapezius muscle. MRI/Upper Ext Joint Only(Routine) IMPRESSION: Small partial-thickness tear and tendinosis of the supraspinatus tendon Mild subscapularis tendinosis. 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 Bicipital tenosynovitis and mild tendinosis of the long biceps tendon. Acromioclavicular arthrosis. Glenohumeral joint effusion. Electronically Signed: Cristopher Pineda MD at 8:25 EDT Tel , Service support ,
== END ==
PROVIDERS: PCP Family Medicine; Visit Provider Family Medicine
DX: M25.512 Pain in left shoulder (principal)
CPT/HCPCS: 73221

== ENCOUNTER 2021-10-06 12:53 | Outpatient (RCR) | payer MEDICARE, OTHER, SELFPAY ==
[2019-09-15 09:55] VITALS: BMI 42.3
[2021-10-01 20:32] VITALS: BMI 43.7
== END 2021-10-31 18:00 | disposition home or self-care (01) ==
LOC: MTLAB 12:53
PROVIDERS: Family Provider Family Medicine; PCP Family Medicine; Referring Provider Internal Medicine Cardiovascular Disease; Visit Provider Internal Medicine Cardiovascular Disease
DX: I48.0 Paroxysmal atrial fibrillation (principal); I48.92 Unspecified atrial flutter; Z79.01 Long term (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 of anticoagulants
CPT/HCPCS: 36416; 85610

== ENCOUNTER 2021-11-22 11:46 | Outpatient (RCR) | payer MEDICARE, OTHER, SELFPAY ==
[2019-09-15 09:55] VITALS: BMI 42.3
[2021-11-01 04:04] VITALS: BMI 43.7
[2021-11-02 11:21] LABS: INR Fingerstick 3.4; Prothrombin Time Fingerstick 36.8 SEC (11.9-14.4)
[2021-11-22 11:55] LABS: INR Fingerstick 2.5; Prothrombin Time Fingerstick 28.1 SEC (11.9-14.4)
== END 2021-12-02 18:00 | disposition home or self-care (01) ==
LOC: MTLAB 11:46
PROVIDERS: Family Provider Family Medicine; PCP Family Medicine; Referring Provider Internal Medicine Cardiovascular Disease; Visit Provider Internal Medicine Cardiovascular Disease
DX: I48.0 Paroxysmal atrial fibrillation (principal); I48.92 Unspecified atrial flutter; Z79.01 Long term (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 of anticoagulants
CPT/HCPCS: 36415; 36416; 85610

== ENCOUNTER 2021-12-04 07:42 | Outpatient (CLI) | payer MEDICARE, OTHER, SELFPAY ==
[2019-09-15 09:55] VITALS: BMI 42.3
--- NOTE | 2021-12-04 07:50 | RAD_ITS ---
PROCEDURE: Fluoroscopic guided left shoulder Injection DATE: 12/04/2021. INDICATION: Female, 76 years old. Chronic shoulder pain. PHYSICIAN: Forrest Rodriguez M.D. MEDICATIONS: 12 mg of BETAMETHASONE and 4 cc of 1% LIDOCAINE. 2% lidocaine administered subcutaneously for local anesthesia. ACCESS SITE: Left shoulder. NEEDLE: 22-gauge spinal needle. FLUOROSCOPY TIME (if supplied): (1:04) minutes/seconds. One image was obtained. FINDINGS: The risks, benefits, and alternatives to the procedure were explained to the patient. The specific risks of bleeding, infection, and neurovascular injury were detailed and accepted. Witnessed informed consent was obtained. A 22-gauge spinal needle was positioned under radiograph fluoroscopic localization. Approximately 2 cc of ISOVUE-300 instilled for localization purposes. Medication was then injected. The patient tolerated the procedure well without any immediate complications. RAD/Inj/Asp Perez Jt Should/Hip/Knee IMPRESSION: 1. Successful fluoroscopic guided left shoulder injection. Electronically Signed: Forrest Rodriguez MD at 8:41 EST , Service support ,
[2021-12-04] MEDS: Lidocaine 2% (5ml sdv) 5 ML VIAL.MPF INFILT (08:05)
[2021-12-04] MEDS: Lidocaine 1% (5 ml sdv) 5 ML Vial 4 ML INFILT (08:10)
[2021-12-04] MEDS: Betamethasone/Betamethasone 30 MG/5 ML Vial 12 MG INTRAARTIC (08:10)
== END 2021-12-04 23:59 | disposition home or self-care (01) ==
LOC: RAD 07:44
PROVIDERS: PCP Family Medicine; Referring Provider Specialist; Visit Provider Specialist
DX: M19.012 Primary osteoarthritis, left shoulder (principal)
CPT/HCPCS: 20610; 77002; Q9967; J0702

== ENCOUNTER 2022-01-23 08:13 | Outpatient (CLI) | payer MEDICARE, OTHER, SELFPAY ==
[2019-09-15 09:55] VITALS: BMI 42.3
--- NOTE | 2022-01-23 08:25 | CT_ITS ---
STUDY: CT SCAN SHOULDER LEFT REASON FOR EXAM: Female, 76 years old. Osteoarthritis. Shoulder pain. RADIATION DOSAGE (If Supplied By Facility): CTDIvol = ( 30.81 ) mGy, DLP = ( 1524.47 ) mGycm. Individualized dose optimization techniques were used for this CT.? TECHNIQUE: Multiple axial tomographic images were obtained without intravenous contrast administration. Coronal and sagittal reconstruction was obtained as well. COMPARISON: None. FINDINGS: Marked degree of joint space narrowing of the glenohumeral joint with degenerative spur formation of the humeral head both anteriorly and posteriorly. Degenerative changes of the acromioclavicular joint. CT/Extremity Upper without Contra IMPRESSION: Marked degree of joint space narrowing of the glenohumeral joint with degenerative spur formation of the humeral head. Osteoarthritis of the acromioclavicular joint. Electronically Signed: Forrest Rodriguez MD at 10:16 EST ,
== END 2022-01-23 23:59 | disposition home or self-care (01) ==
PROVIDERS: PCP Family Medicine; Referring Provider Specialist; Visit Provider Specialist
DX: M19.012 Primary osteoarthritis, left shoulder (principal); I48.0 Paroxysmal atrial fibrillation; I48.92 Unspecified atrial flutter; Z79.01 Long term (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 of anticoagulants
CPT/HCPCS: 36416; 73200; 85610

== ENCOUNTER 2022-01-29 12:07 | Outpatient (RCR) | payer MEDICARE, OTHER, SELFPAY ==
[2019-09-15 09:55] VITALS: BMI 42.3
[2021-12-03 18:17] VITALS: BMI 43.7
[2022-01-23 09:06] LABS: INR Fingerstick 3.4; Prothrombin Time Fingerstick 37.9 SEC (11.9-14.4)
[2022-01-30 08:56] LABS: INR Fingerstick 1.9; Prothrombin Time Fingerstick 22.2 SEC (11.9-14.4)
== END 2022-01-29 23:59 | disposition home or self-care (01) ==
LOC: MTLAB 12:07
PROVIDERS: Family Provider Family Medicine; PCP Family Medicine; Referring Provider Internal Medicine Cardiovascular Disease; Visit Provider Internal Medicine Cardiovascular Disease
DX: I48.0 Paroxysmal atrial fibrillation (principal); I48.92 Unspecified atrial flutter; Z79.01 Long term (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 of anticoagulants
CPT/HCPCS: 36416; 85610

== ENCOUNTER 2022-02-08 08:56 | Outpatient (RCR) | payer MEDICARE, OTHER, SELFPAY ==
[2019-09-15 09:55] VITALS: BMI 42.3
[2022-01-30 10:16] VITALS: BMI 43.7
[2022-02-08 10:17] LABS: International Normalized Ratio 2.6; Prothrombin Time (Protime)PT. 27.2 SECONDS (11.7-14.9)
[2022-02-08 10:45] LABS: AST(SGOT) 29 U/L (15-37); Alanine Aminotransfer ALT/SGPT 21 U/L (13-56); Albumin, Serum 3.3 g/dL (3.2-5.0); Alkaline Phosphatase 78 U/L (45-117); Bilirubin, Direct 0.14 mg/dL (0.00-0.30); Cholesterol 128 mg/dL (200); Globulin 3.2 g/dL (2.2-4.2); High Density Lipoprotein 58 mg/dL; Protein, Total 6.5 g/dL (6.4-8.2); Triglycerides 79 mg/dL; Very Low Density Lipoprotein 16 mg/dL (5-40)
== END 2022-03-01 18:00 | disposition home or self-care (01) ==
LOC: MTLAB 08:56
PROVIDERS: Nurse Practitioner Gerontology; Family Provider Family Medicine; PCP Family Medicine; Referring Provider Internal Medicine Cardiovascular Disease; Visit Provider Internal Medicine Cardiovascular Disease
DX: I48.92 Unspecified atrial flutter (principal); E78.5 Hyperlipidemia, unspecified
CPT/HCPCS: 36415; 80061; 80076; 85610

== ENCOUNTER 2022-03-21 10:21 | Outpatient (CLI) | payer MEDICARE, OTHER, SELFPAY ==
[2019-09-15 09:55] VITALS: BMI 42.3
--- NOTE | 2022-03-21 10:26 | RAD_ITS ---
STUDY: X-RAY CHEST REASON FOR EXAM: Female, 76 years old. SHORTNESS OF BREATH TECHNIQUE: PA and lateral. COMPARISON: 03/05/2017. FINDINGS: LUNGS: No consolidation. No pneumothorax. MEDIASTINUM: Aorta tortuous and atherosclerotic.. CARDIAC SILHOUETTE: Not enlarged. BONES AND SOFT TISSUES: Surgical hardware in both shoulders. Degenerative changes in the dorsal spine. No acute abnormalities. RAD/Chest PA and Lateral IMPRESSION: No evidence of active intrathoracic disease. Electronically Signed: Vandana Cedilol MD at 1:44 EDT ,
[2022-03-21 11:57] LABS: Absolute Lymphocyte Count 1.66 X10^3/uL (0.83-4.51); Basophil# 0.06 X10^3/uL; Basophil% 1.1 % (0-1); Eosinophil# 0.35 X10^3/uL; Eosinophils% 6.5 % (0-5); Hematocrit 33.4 % (37-47); Hemoglobin 10.7 g/dL (12.0-15.0); Lymphocyte # 1.66 X10^3/ul (0.83-4.51); Lymphocyte % 30.7 % (19-41); Mean Corpuscular Hgb 31.1 pg (27.0-32.0); Mean Corpuscular Volume 97.1 fL (81-99); Mean Platelet Vol. 9.1 fl (6.2-12.0); Monocyte# 0.34 X10^3/uL; Monocyte% 6.3 % (0-10); NRBC Flagged by Analyzer 0 % (0-5); Neutrophil # 2.98 X10^3/uL (2.7-7.7); Neutrophil % 55.2 % (47-70); Platelet Count 353 K/mm3 (150-450); RBC Distribution Width CV 13.8 % (11.6-14.6); RBC Distribution Width SD 48.7 fl (35.1-43.9); RET-HE 30.3 pg (30-35); Red Blood Count 3.44 M/mm3 (4.2-5.4); Reticulocyte Count 2.65 % (0.5-1.5); White Blood Count 5.4 K/mm3 (4.4-11.0)
[2022-03-21 12:15] LABS: BNP,B-Type NATRIURETIC PEPTIDE 121.2 pg/mL (0-100)
[2022-03-21 12:19] LABS: Vitamin B12 754 pg/mL (211-911)
[2022-03-21 12:20] LABS: Anion Gap 5 (5-15); BUN 13 mg/dL (7-18); Calcium,Total 8.7 mg/dL (8.5-10.1); Chloride 104 mmol/L (98-107); Creatinine, Serum 1.18 mg/dL (0.55-1.02); EST Glomerular Filtration Rate 47 mL/min (>60); Est Glom Filt Rate - Afr Amer 57 mL/min (>60); Ferritin 68 ng/mL (8-252); Glucose 129 mg/dL (74-106); Iron 43 ug/dL (50-170); Iron Binding Capacity,Total 321 ug/dL (250-450); Potassium 4.2 mmol/L (3.5-5.1); Sodium Level 138 mmol/L (136-145); Thyroid Stim Hormone (TSH) 1.79 uIU/mL (0.358-3.74)
== END 2022-03-21 23:59 | disposition home or self-care (01) ==
LOC: MTLAB 10:23
PROVIDERS: PCP Family Medicine; Referring Provider Family Medicine; Visit Provider Family Medicine
DX: R06.02 Shortness of breath (principal); D64.9 Anemia, unspecified
CPT/HCPCS: 36415; 71046; 80048; 82607; 82728; 83540; 83550; 83880; 84443; 85025; 85045

== ENCOUNTER → 2022-03-22 | Outpatient (CLI) | payer MEDICARE, OTHER, SELFPAY ==
[2019-09-15 09:55] VITALS: BMI 42.3
--- NOTE | 2022-03-22 12:26 | CT_ITS ---
STUDY: CTA CHEST REASON FOR EXAM: Female, 76 years old. SOB RADIATION DOSAGE (If Supplied By Facility): CTDIvol = ( 17.39 ) mGy, DLP = ( 491.10 ) mGycm TECHNIQUE: The examination was performed with the intravenous administration of IV 100mL Isovue-370. Post-processing of the angiographic images was performed, with multiplanar reformation and 3D reconstruction. Individualized dose optimization techniques were used for this CT. COMPARISON: 06/13/2021, 09/25/2019 FINDINGS: Operative changes of the right breast. Normal enhancement of the main pulmonary artery and right and left pulmonary arteries. Normal enhancement of the bilateral peripheral pulmonary arteries. There is no demonstrated pulmonary embolism. Ectasia and atherosclerosis of the thoracic aorta. There is no demonstrated aortic dissection. Normal heart and pericardium. There are calcifications of the coronary arteries. Normal mediastinum. Normal hilar regions. Normal visualized trachea and bronchi. The lungs are well expanded. No airspace consolidation. There are a few scattered subpleural 3 mm noncalcified pulmonary nodules (as seen in the right upper lobe on image 157 series 2), stable. 6.7 mm nodule in the right lower lobe on image 102 of series 2 is stable since 2019. Fleischner Society Guidelines suggest no follow-up is necessary for patients with low or high risk of malignancy. Normal pleura. Normal chest wall structures. Bilateral shoulder replacements. Degenerative changes of the thoracic spine. Gastric bypass. CT/CTA Chest W/WO Contrast IMPRESSION: No central or segmental pulmonary embolism. Electronically Signed: Amado Barragan MD ([place]) at 13:34 EDT ,
== END | disposition home or self-care (01) ==
LOC: CT 12:23
PROVIDERS: PCP Family Medicine; Visit Provider Family Medicine
DX: R06.02 Shortness of breath (principal)
CPT/HCPCS: 71275; Q9967; A4216

== ENCOUNTER 2022-03-30 08:18 | Outpatient (CLI) | payer MEDICARE, OTHER, SELFPAY ==
[2019-09-15 09:55] VITALS: BMI 42.3
--- NOTE | 2022-03-30 10:02 | PFTCOMP_ITS ---
COMPLETE PULMONARY FUNCTION TEST INTERPRETATION Brief HPI: Patient is a 76 year old female, currently under the care of Dr. Lai, who presents to [facility] for complete pulmonary function tests secondary to diagnosis of dyspnea. Respiratory therapist reports good effort and reproducible results. Interpretation: Forced expiration spirometry shows a mild large airways obstructive ventilatory defect with an FEV1 of 85% predicted. There is no significant bronchodilator response by strict ATS criteria. Spirograms are of good quality and plateau slowly, indicating slowly emptying areas of the lungs. The respiratory flow volume loop shows decreased expiratory flow rates at all lung volumes consistent with airway obstruction. Lung volumes by body plethysmography show a normal total lung capacity at 4.2 L, 112% predicted. FRC and RV are elevated out of proportion. Lung volume marianna surements are consistent with air-trapping. Diffusion capacity by carbon monoxide is decreased at 56% predicted. The airway resistance is normal. No previous pulmonary function tests were available for review. Impression: Irreversible mild large airways obstructive ventilatory defect resulting in air trapping and a disproportionate reduction diffusion capacity.
== END 2022-03-30 23:59 | disposition home or self-care (01) ==
PROVIDERS: PCP Family Medicine; Referring Provider Family Medicine; Visit Provider Family Medicine
DX: R06.02 Shortness of breath (principal); I48.0 Paroxysmal atrial fibrillation; I48.92 Unspecified atrial flutter; Z79.01 Long term (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 of anticoagulants; R06.00 Dyspnea, unspecified
CPT/HCPCS: 36416; 85610; 94060; 94726; 94729

== ENCOUNTER 2022-03-30 14:26 | Outpatient (RCR) | payer MEDICARE, OTHER, SELFPAY ==
[2019-09-15 09:55] VITALS: BMI 42.3
[2022-03-02 02:54] VITALS: BMI 43.7
[2022-03-15 11:46] LABS: INR Fingerstick 1.7; Prothrombin Time Fingerstick 20.3 SEC (11.7-14.9)
[2022-03-30 14:36] LABS: INR Fingerstick 1.9; Prothrombin Time Fingerstick 23.1 SEC (11.7-14.9)
== END 2022-03-30 18:00 | disposition home or self-care (01) ==
LOC: MTLAB 14:26
PROVIDERS: Family Provider Family Medicine; PCP Family Medicine; Referring Provider Internal Medicine Cardiovascular Disease; Visit Provider Internal Medicine Cardiovascular Disease
DX: I48.0 Paroxysmal atrial fibrillation (principal); I48.92 Unspecified atrial flutter; Z79.01 Long term (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 of anticoagulants
CPT/HCPCS: 36416; 85610

== ENCOUNTER 2022-04-24 09:24 | Outpatient (RCR) | payer MEDICARE, OTHER, SELFPAY ==
[2019-09-15 09:55] VITALS: BMI 42.3
[2022-04-01 05:23] VITALS: BMI 43.7
[2022-04-24 09:40] LABS: INR Fingerstick 2.2; Prothrombin Time Fingerstick 26.1 SEC (11.7-14.9)
== END 2022-04-24 18:00 | disposition home or self-care (01) ==
LOC: MTLAB 09:24
PROVIDERS: Family Provider Family Medicine; PCP Family Medicine; Referring Provider Internal Medicine Cardiovascular Disease; Visit Provider Internal Medicine Cardiovascular Disease
DX: I48.0 Paroxysmal atrial fibrillation (principal); I48.92 Unspecified atrial flutter; Z79.01 Long term (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 of anticoagulants
CPT/HCPCS: 36416; 85610

== ENCOUNTER → 2022-05-04 | Outpatient (CLI) | payer MEDICARE, OTHER, SELFPAY ==
[2019-09-15 09:55] VITALS: BMI 42.3
--- NOTE | 2022-05-04 07:46 | ECHOD_ITS ---
Reason For Study: PHTN Procedure This was a 2D Doppler, Color Flow transthoracic echocardiogram. Myocardial strain analysis was performed in this exam to aid in the assessment of cardiac function. Spoke with Halima DOMÍNGUEZ about patient's elevated BP. Exam performed in department. Left Ventricle Normal LV size. Left ventricular systolic function is normal. The estimated ejection fraction is 55 %. Stage 1 diastolic dysfunction. No regional wall motion abnormalities noted. Right Ventricle Normal RV size. Normal systolic function. Atria Normal left atrium. Normal right atrium. Mitral Valve Normal mitral valve. Tricuspid Valve Normal tricuspid valve. Mild tricuspid valve insufficiency. Pulmonary artery systolic pressure is 40 mmHg. Aortic Valve Normal aortic valve. Mild (1+) aortic valve insufficiency. Pulmonic Valve Normal pulmonic valve. Great Vessels Normal aortic root. The pulmonary artery is normal size. Normal inferior vena cava. Pericardium/Pleural No pericardial effusion. MMode/2D Measurements & Calculations LVIDd: 4.9 cm IVSd: 0.90 cm Ao root diam: 3.1 cm LVIDs: 3.7 cm LVPWd: 0.78 cm RVDd: 3.5 cm FS: 23.6 % LAV(MOD-bp): 42.5 ml LVAd ap4: 23.5 cm2 SV(MOD-sp4): 43.1 ml LAV(MOD-bp) Indexed: 22.6 ml/m2 LVLd ap4: 7.6 cm LAV(MOD-sp2): 51.1 ml EDV(MOD-sp4): 62.1 ml LAV(MOD-sp4): 33.6 ml EDV(sp4-el): 61.7 ml LVAs ap4: 12.0 cm2 LVLs ap4: 6.3 cm ESV(MOD-sp4): 19.0 ml ESV(sp4-el): 19.3 ml EF(MOD-sp4): 69.5 % EF(sp4-el): 68.8 % SV(sp4-el): 42.4 ml LA A4 area: 14.2 cm2 LA dimension(2D): 3.5 cm RA A4 area: 12.7 cm2 Doppler Measurements & Calculations MV E max steve: 104.9 cm/sec Lat Peak E' Steve: 6.6 cm/sec Med Peak E' Steve: 4.8 cm/sec MV A max steve: 111.4 cm/sec E/E' lat: 15.9 E/E' med: 22.0 MV E/A: 0.94 Ao V2 max: 195.2 cm/sec AI max steve: 435.2 cm/sec LV V1 max: 129.5 cm/sec Ao max P.2 mmHg AI max P.4 mmHg LV V1 max P.7 mmHg Ao V2 mean: 133.5 cm/sec Ao mean P.1 mmHg AI dec slope: 220.2 cm/sec2 Ao V2 VTI: 44.0 cm AI P1/2t: 578.9 msec PA V2 max: 79.3 cm/sec TR max steve: 295.9 cm/sec TR max P.0 mmHg ECHO/Echo Complete Interpretation Summary Normal LV size. Left ventricular systolic function is normal. The estimated ejection fraction is 55 %. Stage 1 diastolic dysfunction. Mild (1+) aortic valve insufficiency. The global longitudinal strain is normal. The global longitudinal strain = -22. 3 % (normal). Ordering Physician: Bradley Gatica Referring Physician: Myles Lai Performed By: Laila Kamara, REBECCA, RVT
== END | disposition home or self-care (01) ==
LOC: CVS 07:46
PROVIDERS: PCP Family Medicine; Referring Provider Internal Medicine Critical Care Medicine; Visit Provider Internal Medicine Critical Care Medicine
DX: R06.02 Shortness of breath (principal); I27.20 Pulmonary hypertension, unspecified
CPT/HCPCS: 93306

== ENCOUNTER → 2022-05-10 | Outpatient (CLI) | payer MEDICARE, OTHER, SELFPAY ==
[2019-09-15 09:55] VITALS: BMI 42.3
[2022-05-10 11:36] VITALS: PULSE 73; PULSE 74; PULSE 86; PULSE 90; PULSE 92; PULSE 94; O2SAT 88; O2SAT 89; O2SAT 90; O2SAT 91; O2SAT 94; O2SAT 95
--- NOTE | 2022-05-10 11:49 | CPS ---
PATIENT HAS OXYGEN ESTABLISHED AT HOME THROUGH [employer]. SHE ARRIVED FOR TESTING ON ROOM AIR D/T INABILITY TO SELF MANAGE/MANEUVER THE E-CYLINDER SHE HAS AT HOME. SPO2 NOTED TO BE 88% RA AT VERY END OF 6MIN TEST. PT DID REQUIRE 4 REST PERIODS DURING TESTING FOR INCREASED WOB.
--- NOTE | 2022-05-10 15:28 | WT_ITS ---
PSN 6 Minute Walk Test 6 Minute Walk Test 6 Minute Walk Test: 6 Minute Walk Test PSN:6-Minute Walk Test Start: 05/10/22 11:36 Freq: Status: Active Protocol: [id number] Document 05/10/22 11:36 [facility] (Rec: 05/10/22 11:55 [facility] [id number]) 6 Minute Walk Test Date Performed 05/10/22 Time Performed 11:15 Height 4 ft 11 in Weight: 92.986 kg Weight in Pounds 205.[address]: Bradley Gatica Assistive device used: None Pre-test Oxygen Delivery Method Room Air Pulse Ox (%) 95 Pulse Rate (60-100 beats/min) 74 Dyspnea Bhavna Scale (0-10) 0 1st minute Oxygen Delivery Method Room Air Pulse Ox (%) 91 Pulse Rate (60-100 beats/min) 86 Dyspnea Bhavna Scale (0-10) 1 Number of Rests Taken 0 Reported Symptoms Increased Work of Breathing 2nd minute Oxygen Delivery Method Room Air Pulse Ox (%) 90 Pulse Rate (60-100 beats/min) 90 Dyspnea Bhavna Scale (0-10) 3 Number of Rests Taken 1 Reported Symptoms Increased Work of Breathing 3rd minute Oxygen Delivery Method Room Air Pulse Ox (%) 90 Pulse Rate (60-100 beats/min) 92 Dyspnea Bhavna Scale (0-10) 3 Number of Rests Taken 1 Reported Symptoms Increased Work of Breathing 4th minute Oxygen Delivery Method Room Air Pulse Ox (%) 89 Pulse Rate (60-100 beats/min) 90 Dyspnea Bhavna Scale (0-10) 3 Number of Rests Taken 1 Reported Symptoms Increased Work of Breathing 5th minute Oxygen Delivery Method Room Air Pulse Ox (%) 89 Pulse Rate (60-100 beats/min) 92 Dyspnea Bhavna Scale (0-10) 4 Number of Rests Taken 0 Reported Symptoms Increased Work of Breathing 6th minute Oxygen Delivery Method Room Air Pulse Ox (%) 88 Pulse Rate (60-100 beats/min) 94 Dyspnea Bhavna Scale (0-10) 5 Number of Rests Taken 1 Reported Symptoms Increased Work of Breathing Post-test Oxygen Delivery Method Room Air Pulse Ox (%) 94 Pulse Rate (60-100 beats/min) 73 Dyspnea Bhavna Scale (0-10) 0 Full Laps Walked 13 Partial Lap, Number of Tiles Walked 12 Total Distance Walked (ft) 779 05/10/22 11:49 Cardiopulmonary Services by Arlet Castaneda PATIENT HAS OXYGEN ESTABLISHED AT HOME THROUGH [employer]. SHE ARRIVED FOR TESTING ON ROOM AIR D/T INABILITY TO SELF MANAGE/MANEUVER THE E-CYLINDER SHE HAS AT HOME. SPO2 NOTED TO BE 88% RA AT VERY END OF 6MIN TEST. PT DID REQUIRE 4 REST PERIODS DURING TESTING FOR INCREASED WOB. Initialized on 05/10/22 11:49 - END OF NOTE Interpretation Interpretation: The patient was able to ambulate 779 feet over the course of 6 minutes on room air with the assistance of 4 breaks. Patient did desaturate to 88% in the last minute, but was not placed on supplemental oxygen. No significant tachycardia was noted. These findings are consistent with a respiratory limitation exercise tolerance. Recommendations Recommendations: Patient requires no supplemental oxygen at rest, but should be using 2 L nasal cannula with exertion.
== END | disposition home or self-care (01) ==
LOC: PSN 10:59
PROVIDERS: PCP Family Medicine; Referring Provider Internal Medicine Critical Care Medicine; Visit Provider Internal Medicine Critical Care Medicine
DX: R06.00 Dyspnea, unspecified (principal)
CPT/HCPCS: 94618

== ENCOUNTER → 2022-05-21 | Outpatient (CLI) | payer MEDICARE, OTHER, SELFPAY ==
[2019-09-15 09:55] VITALS: BMI 42.3
== END | disposition home or self-care (01) ==
LOC: SL 20:25
PROVIDERS: PCP Family Medicine; Visit Provider Nurse Practitioner Acute Care
DX: G47.33 Obstructive sleep apnea (adult) (pediatric) (principal)
CPT/HCPCS: 95811

== ENCOUNTER 2022-06-13 10:26 | Outpatient (RCR) | payer MEDICARE, OTHER, SELFPAY ==
[2019-09-15 09:55] VITALS: BMI 42.3
[2022-05-01 21:41] VITALS: BMI 43.7
[2022-06-13 12:20] LABS: Absolute Lymphocyte Count 2.01 X10^3/uL (0.83-4.51); Absolute Neutrophil Count 2.6 X10^3/uL (2.0-7.7); Basophil# 0.03 X10^3/uL; Basophil% 0.6 % (0-1); Eosinophil# 0.26 X10^3/uL; Hematocrit 36.7 % (37-47); Hemoglobin 11.4 g/dL (12.0-15.0); Lymphocyte # 2.01 X10^3/ul (0.83-4.51); Lymphocyte % 38.7 % (19-41); Mean Corp Hgb Conc 31.1 g/dL (32-36); Mean Corpuscular Hgb 30.3 pg (27.0-32.0); Mean Corpuscular Volume 97.6 fL (81-99); Mean Platelet Vol. 9.7 fl (6.2-12.0); Monocyte# 0.34 X10^3/uL; Monocyte% 6.5 % (0-10); NRBC Flagged by Analyzer 0 % (0-5); Neutrophil # 2.55 X10^3/uL (2.7-7.7); Platelet Count 206 K/mm3 (150-450); RBC Distribution Width CV 13.8 % (11.6-14.6); RBC Distribution Width SD 49.7 fl (35.1-43.9); Red Blood Count 3.76 M/mm3 (4.2-5.4); White Blood Count 5.2 K/mm3 (4.4-11.0)
[2022-06-13 12:29] LABS: International Normalized Ratio 1.8; Prothrombin Time (Protime)PT. 20.7 SECONDS (11.7-14.9)
[2022-06-13 12:53] LABS: ALB/GLOB Ratio 1.1 RATIO (0.9-2.4); AST(SGOT) 23 U/L (15-37); Alanine Aminotransfer ALT/SGPT 19 U/L (13-56); Albumin, Serum 3.4 g/dL (3.2-5.0); Alkaline Phosphatase 75 U/L (45-117); Anion Gap 3 (5-15); BUN 13 mg/dL (7-18); BUN/Creat Ratio 12.1 RATIO (10-20); Calcium,Total 8.7 mg/dL (8.5-10.1); Chloride 105 mmol/L (98-107); Creatinine, Serum 1.07 mg/dL (0.55-1.02); EST Glomerular Filtration Rate 53 mL/min (>60); Est Glom Filt Rate - Afr Amer 64 mL/min (>60); Globulin 3.1 g/dL (2.2-4.2); Glucose 111 mg/dL (74-106); LDH 164 U/L (84-246); Potassium 3.9 mmol/L (3.5-5.1); Protein, Total 6.5 g/dL (6.4-8.2); Sodium Level 140 mmol/L (136-145)
== END 2022-07-01 03:22 | disposition home or self-care (01) ==
LOC: MTLAB 10:26
PROVIDERS: Internal Medicine Medical Oncology; Family Provider Family Medicine; PCP Family Medicine; Referring Provider Internal Medicine Cardiovascular Disease; Visit Provider Internal Medicine Cardiovascular Disease
DX: I48.0 Paroxysmal atrial fibrillation (principal); I48.92 Unspecified atrial flutter; Z79.01 Long term (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 of anticoagulants
CPT/HCPCS: 36415; 80053; 83615; 85025; 85610

== ENCOUNTER 2022-06-13 10:51 | Outpatient (CLI) | payer MEDICARE, OTHER, SELFPAY ==
[2019-09-15 09:55] VITALS: BMI 42.3
--- NOTE | 2022-06-13 10:52 | BI_ITS ---
MAMMOGRAPHY - BILATERAL SCREENING REASON FOR EXAM: Female, 76 years old. Routine annual screening examination. PERTINENT HISTORY: Personal history of breast cancer. Prior right lumpectomy with radiation therapy. Remote left excisional breast biopsy. TECHNIQUE: Digital bilateral breast doc (3D mammographic acquisition) in the CC and MLO projections. 2-D mediolateral oblique (MLO) and craniocaudad (CC) views of both breasts were obtained. CAD: Full Field Digital Mammography with Computer Added Detection was performed. COMPARISON: Comparison is made with prior examination dated 06/12/2021 and 06/06/2020. FINDINGS: Breast Composition: There are scattered areas of fibroglandular density. There are no dominant masses or suspicious calcifications. Once again, the patient is status post right lumpectomy in the upper lateral aspect of the right breast with resultant postoperative architectural distortion. This is stable. No other significant abnormalities are identified. There has been no significant change since the prior study. BI/SCRN MAMM (CAD)W/DOC BILAT IMPRESSION: Stable bilateral screening mammogram. Yearly follow-up mammogram recommended. (A) ASSESSMENT CATEGORY: BIRADS Category 2: Benign. A letter regarding these results will be sent to the patient by the facility within 30 days. Approximately 10% of breast cancers are not detected by mammography. A normal mammogram should not delay biopsy of a clinically suspicious abnormality. [id number] Electronically Signed: Forrest Rodriguez MD at 11:57 EDT ,
== END 2022-06-13 23:59 | disposition home or self-care (01) ==
PROVIDERS: PCP Family Medicine; Visit Provider Internal Medicine Medical Oncology
DX: Z12.31 Encounter for screening mammogram for malignant neoplasm of breast (principal); I48.0 Paroxysmal atrial fibrillation; I48.92 Unspecified atrial flutter; Z85.3 Personal history of malignant neoplasm of breast; Z79.01 Long term (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 of anticoagulants
CPT/HCPCS: 36415; 77063; 77067; 80053; 83615; 85025; 85610

== ENCOUNTER 2022-07-17 12:43 | Outpatient (RCR) | payer MEDICARE, OTHER, SELFPAY ==
[2019-09-15 09:55] VITALS: BMI 42.3
[2022-07-01 03:22] VITALS: BMI 43.7
[2022-07-17 12:56] LABS: INR Fingerstick 2.5; Prothrombin Time Fingerstick 28.9 SEC (11.7-14.9)
== END 2022-07-17 18:00 | disposition home or self-care (01) ==
LOC: MTLAB 12:43
PROVIDERS: Family Provider Family Medicine; PCP Family Medicine; Referring Provider Internal Medicine Cardiovascular Disease; Visit Provider Internal Medicine Cardiovascular Disease
DX: Z79.01 Long term (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 of anticoagulants (principal)
CPT/HCPCS: 36416; 85610

== ENCOUNTER → 2022-08-21 | Outpatient (CLI) | payer MEDICARE, OTHER, SELFPAY ==
[2019-09-15 09:55] VITALS: BMI 42.3
--- NOTE | 2022-08-21 11:03 | BD_ITS ---
STUDY: DUAL ENERGY X-RAY ABSORPTIOMETRY / DXA REASON FOR EXAM: Female, 77 years old. SCREENING TECHNIQUE: Bone Mineral Density (BMD) measurements of lumbar spine and bilateral hips were obtained. COMPARISON: Comparison is made with prior study dated 02/25/2019. FINDINGS: Lumbar Spine (L1-L4): g/cm2 (1.099) / T-score (0.7) / Z-score (3.3) Findings are suggestive of normal bone density with a low fracture risk. Left Femur Total: g/cm2 (0.785) / T-score (-1.3) / Z-score (0.7) Left Femoral Neck: g/cm2 (0.538) / T-score (-2.8) / Z-score (-0.5) Right Femur Total: g/cm2 (0.711) / T-score (-1.9) / Z-score (0.1) Right Femoral Neck: g/cm2 (0.525) / T-score (-2.9) / Z-score (-0.7) The T-Scores on the most recent prior examination were: Lumbar Spine (L1-L4): There has been worsening of bone density since the previous examination. Left Femur Total: which represents a worsening of 6.1%. Right Femur Total: which represents a worsening of 4.8%. BD/Dexa Bone Density Study IMPRESSION: The patient is considered osteoporotic as outlined below according to World Junior Organization (WHO) criteria with a high fracture risk. There has been worsening of bone density since the previous examination. Reference Information: The T-score is the number of standard deviations above or below the standard which is normal for young adults at their peak bone mineral density. The World Health Organization (WHO) interprets the T-scores as follows: Above -1 Normal bone density Between -1 and -2.5 Osteopenia Equal to / or below -2.5 Osteoporosis As a practical clinical guideline, osteopenia may be graded as follows: Mild -1 through -1.5 Moderate -1.6 through -2.0 Severe -2.1 through -2.4 The Z-score is the number of standard deviations above or below age-matched controls. A Z-score of less than -1.5 would be considered abnormal. References: 1. NIH Osteoporosis and Related Bone Diseases www osteo.org 2. International Society for Clinical Densitometry www iscd.org 3. National Osteoporosis Foundation www nof.org Electronically Signed: Forrest Rodriguez MD at 13:26 EDT ,
== END | disposition home or self-care (01) ==
LOC: OPBD 10:51
PROVIDERS: PCP Family Medicine; Visit Provider Internal Medicine Medical Oncology
DX: Z78.0 Asymptomatic menopausal state (principal); Z85.3 Personal history of malignant neoplasm of breast
CPT/HCPCS: 77080

== ENCOUNTER → 2022-08-31 | Outpatient (CLI) | payer MEDICARE, OTHER, SELFPAY ==
[2019-09-15 09:55] VITALS: BMI 42.3
== END | disposition home or self-care (01) ==
LOC: SL 11:38
PROVIDERS: PCP Family Medicine; Visit Provider Nurse Practitioner Acute Care
DX: Z46.89 Encounter for fitting and adjustment of other specified devices (principal)

== ENCOUNTER 2022-09-07 16:26 | Emergency (ER) | payer MEDICARE, OTHER, SELFPAY ==
[2019-09-15 09:55] VITALS: BMI 42.3
[2022-09-07 16:28] VITALS: BP 143/86; PULSE 73; RESP 16; TEMP 35.8; O2SAT 96; BMI 45.1
[2022-09-07 16:32] VITALS: BP 143/86; PULSE 73; RESP 16; TEMP 35.8; O2SAT 96
--- NOTE | 2022-09-07 17:03 | CT_ITS ---
STUDY: CT BRAIN WITHOUT CONTRAST REASON FOR EXAM: Female, 77 years old. weakness RADIATION DOSAGE (If Supplied By Facility): CTDIvol = ( 44.99 ) mGy, DLP = ( 832.67 ) mGycm TECHNIQUE: Transaxial CT imaging of the brain was performed without administration of intravenous contrast material. Individualized dose optimization techniques were used for this CT. COMPARISON: MRI brain 11/02/2019. FINDINGS: Normal soft tissue structures. Normal calvarium. There is mild cerebral atrophy with widening of the extra-axial spaces and ventricular dilatation. There are areas of decreased attenuation within the white matter tracts of the supratentorial brain, consistent with microvascular disease changes. There is no intracranial hemorrhage. No acute territorial infarct. Normal visualized paranasal sinuses. CT/Brain/Head without Contrast IMPRESSION: No acute findings. Mild microvascular ischemic changes. Atrophy. Electronically Signed: Claire Cormier MD at 17:57 EDT Reading Location ID and State: [id number] / Tel , Service support ,
--- NOTE | 2022-09-07 17:05 | EDS_ITS ---
HPI <JUAN Garland - Last Filed: 09/07/22 19:16> History of Present Illness Chief Complaint: Confusion Narrative Narrative: 77-year-old female with history of atrial fibrillation on Coumadin, hypertension, hyperlipidemia, obesity, sleep apnea presents to the emergency department with 1 week of generalized fatigue, tiredness, episode of nonresponsiveness today. Patient states that she has just been feeling so tired, she may have had a syncopal episode where she feels tired, and does not remember anything. Per the family, the patient was sitting in a chair, she had her eyes closed, she was not responding to the family. Patient also complains of right calf pain for the last 4 to 5 days, patient is concerned because she drove to [place] less than 1 month ago. Patient denies any chest pain or shortness of breath. Patient was seen by her PCP and told to come to the emergency department. [facility] <JUAN Garland - Last Filed: 09/07/22 19:16> [facility] Medical History (Updated 09/07/22 @ 19:13 by JUAN Garland) Breast cancer, right breast Cataract, left eye Encounter for education Essential (primary) hypertension Irritable bowel custodial (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 of anticoagulants Lung nodule, multiple Malignant neoplasm of central portion of right female breast Obesity Paroxysmal atrial fibrillation Paroxysmal atrial flutter Sleep apnea with use of continuous positive airway pressure (CPAP) Spinal stenosis Type 2 diabetes mellitus Wrist fracture, left Home Medications acetaminophen 500 mg tablet 1,000 mg PO BID 03/02/17 [History Last Taken Unknown] bupropion HCl 100 mg tablet 150 mg PO DAILY mood 03/02/17 [History Last Taken Unknown] multivit with xdczswyp-qjzs-YA-lutein 8 mg iron-400 mcg-300 mcg tablet 1 ea PO DAILY supplement 03/02/17 [History Last Taken Unknown] gabapentin 300 mg capsule 300 mg PO BID pain 30 days #90 caps 12/24/18 [History Last Taken Unknown] pyridoxine (vitamin B6) 100 mg tablet 100 mg PO DAILY supplement 03/02/19 [History Last Taken Unknown] cholecalciferol (vitamin D3) 50 mcg (2,000 unit) capsule 50 mcg PO DAILY 01/19/21 [History Last Taken Unknown] warfarin 3 mg tablet 1.5 mg PO WETHFRSA #60 tabs 01/19/21 [Rx Last Taken Unknown] warfarin 3 mg tablet 3 mg PO DAILY #90 tabs 01/19/21 [Rx Last Taken Unknown] atorvastatin 10 mg tablet 10 mg PO DAILY 08/09/21 [History Last Taken Unknown] coenzyme Q10 100 mg capsule (Q-Sorb Co Q-10) 100 mg PO DAILY 08/09/21 [History Last Taken Unknown] furosemide 40 mg tablet 40 mg PO DAILY #90 tabs 11/28/21 [Rx Last Taken Unknown] tamoxifen 20 mg tablet 20 mg PO DAILY 90 days #90 tabs 12/21/21 [Rx Last Taken Unknown] escitalopram oxalate 5 mg tablet 10 mg PO DAILY depression 30 days #60 tabs 02/07/22 [History Last Taken Unknown] losartan 100 mg tablet 100 mg PO DAILY bp #90 tabs 02/07/22 [Rx Last Taken Unknown] melatonin 3 mg tablet 10 mg PO QHS sleep 02/07/22 [History Last Taken Unknown] tramadol 50 mg tablet 50 mg PO BID PRN 02/07/22 [History Last Taken Unknown] metoprolol succinate 25 mg tablet,extended release 24 hr 25 mg PO .COMPLEX afib #90 tabs 05/07/22 [Rx Last Taken Unknown] Allergy/AdvReac Type Severity Reaction Status Date / Time No Known Allergies Allergy Verified 08/14/22 11:45 Family History Sister CVA (cerebral vascular accident) Father CAD (coronary artery disease) Hypertension Mother Hypertension CAD (coronary artery disease) Surgical History h/o breast lumpectomy H/O dilation and curettage H/O hand surgery H/O total knee replacement H/O: hysterectomy History of back surgery History of gastric bypass History of radiofrequency ablation procedure for cardiac arrhythmia (03/20/11) History of tonsillectomy S/P carpal tunnel release S/P right breast biopsy (03/05/19) S/P shoulder surgery Status post right breast lumpectomy Social History Smoking Status: Never smoker Electronic Cigarette Use: not used second hand exposure: Yes (Childhood ) alcohol intake: current alcohol intake frequency: holidays/special occasions only Alcohol type: wine substance use type: does not use ROS <JUAN Garland - Last Filed: 09/07/22 19:16> ROS ED ROS Narrative Constitutional: Negative for fever, chills, weight loss. Positive for fatigue, tiredness Eyes: Negative for vision loss, vision change, double vision ENT: Negative for any sore throat, ear pain, congestion Cardiovascular: Negative for any chest pain, tightness, palpitations Respiratory: Negative for any cough, sputum production, hemoptysis, dyspnea, dyspnea on exertion, orthopnea Gastrointestinal: Negative for any abdominal pain, nausea, vomiting, diarrhea, constipation, blood in stool, blood in vomit : Negative for any urinary frequency, dysuria, retention, blood in urine Muscle skeletal: Negative for any muscle joint pain, stiffness, myalgias, arthralgias, neck pain, back pain. Positive for right calf pain Neurological: Negative for any headache, syncope, numbness or tingling, dizziness Skin: Negative for any rashes, lumps, itching, abrasions, lacerations Psychiatric: Negative for any depression, anxiety, stress, suicidal ideation, homicidal ideation Hematologic: Negative for any easy bruising, excessive bruising, easy bleeding Allergies: Negative for any eczema, hives, rash EXAM <JUAN Garland - Last Filed: 09/07/22 19:16> Physical Exam Narrative Exam Narrative: Vital signs reviewed. Patient's vital signs are stable. Patient is in no distress. Patient is alert and orient x4. Patient does appear to be slightly sleepy HEET: Head normocephalic atraumatic, TMs clear bilaterally. Posterior pharynx is clear, moist mucous membranes. Nares clear bilaterally. Neck: Supple with no lymphadenopathy or tenderness. No signs of meningismus, negative jolt sign. Cardiac: Regular rate and rhythm no murmurs gallops or rubs, equal peripheral pulses bilaterally. Respiratory: Lungs clear to auscultation bilaterally. No chest tenderness. Abdomen: Soft, nontender, nondistended. No abdominal bruit or pulsatile masses. No hepatosplenomegaly Extremities: No peripheral edema, no signs of gross trauma or deformity. Active full range of motion of all extremities. Patient has no swelling to the right calf, there is pain on palpation to the posterior calf. Patient is focally, neurologically intact. +2 pedal pulse. Neuro: Cranial nerves II through XII intact, no focal neurological deficits. Skin: Clean dry and intact with no rash, purpura, petechiae, vesicles or pustules. Backs/flank: No CVA tenderness, no midline spinal tenderness, no deformity. Psych: Normal mood and affect. No SI, HI or acute psychosis. Const Vital Signs: 09/07/22 16:28 09/07/22 16:32 09/07/22 17:41 Temperature 96.5 F L 96.5 F L Temperature Source Temporal Temporal Pulse Rate 73 73 70 Respiratory Rate 16 16 13 Blood Pressure 143/86 H 143/86 H 140/76 H Blood Pressure Mean 105 105 97 Pulse Ox 96 96 97 Oxygen Delivery Method Room Air Room Air Room Air 09/07/22 18:05 09/07/22 19:00 Temperature Temperature Source Pulse Rate 68 76 Respiratory Rate 12 16 Blood Pressure 142/76 H 154/81 H Blood Pressure Mean 98 105 Pulse Ox 99 95 Oxygen Delivery Method Room Air Room Air Positive well nourished and well developed General Appearance ED: well developed <Dr. Benja Mosley MD - Last Filed: 09/07/22 19:07> Physical Exam Const Vital Signs: 09/07/22 16:28 09/07/22 16:32 09/07/22 17:41 Temperature 96.5 F L 96.5 F L Temperature Source Temporal Temporal Pulse Rate 73 73 70 Respiratory Rate 16 16 13 Blood Pressure 143/86 H 143/86 H 140/76 H Blood Pressure Mean 105 105 97 Pulse Ox 96 96 97 Oxygen Delivery Method Room Air Room Air Room Air 09/07/22 18:05 09/07/22 19:00 Temperature Temperature Source Pulse Rate 68 76 Respiratory Rate 12 16 Blood Pressure 142/76 H 154/81 H Blood Pressure Mean 98 105 Pulse Ox 99 95 Oxygen Delivery Method Room Air Room Air MDM <JUAN Garland - Last Filed: 09/07/22 19:16> MDM Lab Data Labs: Laboratory Results - last 24 hr 09/07/22 09/07/22 09/07/22 16:45 16:45 16:45 WBC 5.7 RBC 3.67 L Hgb 11.4 L Hct 36.4 L MCV 99.2 H MCH 31.1 MCHC 31.3 L RDW Std Deviation 48.9 H RDW Coeff of Bashir 13.4 Plt Count 210 MPV 9.1 Immature Gran % (Auto) 0.300 Neut % (Auto) 54.1 Lymph % (Auto) 33.0 Andrew % (Auto) 8.6 Eos % (Auto) 3.5 Baso % (Auto) 0.5 Absolute Neuts (auto) 3.1 Absolute Lymphs (auto) 1.89 Nucleated RBC % 0 PT 25.4 H INR 2.3 Sodium 142 Potassium 3.9 Chloride 107 Carbon Dioxide 29.0 Anion Gap 6 BUN 12 Creatinine 1.06 H Estim Creat Clear Calc 66.51 Est GFR (MDRD) Af Amer 64 Est GFR (MDRD) Non-Af 53 L BUN/Creatinine Ratio 11.3 Glucose 72 L Calcium 8.2 L Troponin I High Sens 3 Urine Color Urine Clarity Urine pH Ur Specific [place] Urine Protein Urine Glucose (UA) Urine Ketones Urine Occult Blood Urine Nitrite Urine Bilirubin Urine Urobilinogen Ur Leukocyte Esterase Urine RBC Urine WBC Ur Squamous Epith Cells Urine Bacteria Hyaline Casts Urine Mucus 09/07/22 18:00 WBC RBC Hgb Hct MCV MCH MCHC RDW Std Deviation RDW Coeff of Bashir Plt Count MPV Immature Gran % (Auto) Neut % (Auto) Lymph % (Auto) Andrew % (Auto) Eos % (Auto) Baso % (Auto) Absolute Neuts (auto) Absolute Lymphs (auto) Nucleated RBC % PT INR Sodium Potassium Chloride Carbon Dioxide Anion Gap BUN Creatinine Estim Creat Clear Calc Est GFR (MDRD) Af Amer Est GFR (MDRD) Non-Af BUN/Creatinine Ratio Glucose Calcium Troponin I High Sens Urine Color Yellow Urine Clarity Clear Urine pH 5.0 Ur Specific [place] 1.020 Urine Protein Negative Urine Glucose (UA) Normal Urine Ketones Negative Urine Occult Blood Negative Urine Nitrite Negative Urine Bilirubin Negative Urine Urobilinogen Normal Ur Leukocyte Esterase Negative Urine RBC 0 SEEN Urine WBC 0 SEEN Ur Squamous Epith Cells 0-5 SEEN Urine Bacteria 1+ Hyaline Casts 25-50 SEEN Urine Mucus 3+ Radiography Diagnostic Testing: Clinical Impression(s) from Imaging Studies Brain CT 09/07/22 17:03 IMPRESSION: No acute findings. Mild microvascular ischemic changes. Atrophy. Electronically Signed: Claire Cormier MD at 17:57 EDT Reading Location ID and State: [id number] / Tel , Service support , Venous Duplex 09/07/22 17:17 IMPRESSION: Normal right lower extremity duplex venous ultrasound. Electronically Signed: Claire Cormier MD at 18:31 EDT Reading Location ID and State: [id number] / Tel , Service support , Chest X-Ray 09/07/22 17:22 IMPRESSION: No acute cardiopulmonary disease or major interval change. Electronically Signed: Rodriguez Mclean DO at 17:40 EDT , Treatment and Re-Evaluation Narrative: Patient appears well, patient appears nontoxic, vital signs are stable. Patient presents the [place] with fatigue, a unresponsive episode where she was not answering her family. Patient did receive a full work-up. Patient's laboratory studies show CBC with slight anemia however this is a patient's b aseline. Patient's PT/INR is within normal limits for some on Coumadin. Patient's chemistries were baseline. Patient did receive a venous duplex of the right lower extremity which was unremarkable. I believe the patient suffered from a calf strain. Patient did receive a CT scan of the brain this showed no acute findings. Patient's chest x-ray entered by ER physician shows no acute cardiopulmonary disease. Patient's COVID-19, flu negative. EKG was unremarkable. The patient's physical examination as well as the work-up here yielded no explanation for her syncope, unresponsive episode. We did mention to admit the patient for further work-up however she would like to go home. At this time, I do believe this is a appropriate action. She will follow-up closely with her PCP. She will return for any worsening symptoms. At this time there is no evidence of DVT, infection, MD, infarction. Patient stable for discharge. Patient was able to walk around the department without any difficulty. <Dr. Benja Mosley MD - Last Filed: 09/07/22 19:07> [facility] Narrative Medical decision making narrative: I have personally performed a face to face assessment of the patient and have reviewed the OSITO Note. I performed a substantive portion of the visit including all aspects of the following. My medina findings include: History 77-year-old female evaluated with our nurse practitioner. Patient had an unresponsive episode at home. Now feels fine. Denies any headache, chest pain, shortness of breath abdominal pain. No nausea vomiting diarrhea. Normal p.o. intake. Ate today. She has extensive past medical history and is on blood thinners. Also complains of right calf pain which appears to be a calf strain. Exam is [well-appearing 77-year-old. Vital signs stable afebrile. Does not look septic toxic. Pulse ox 96% on room air no signs hypoxia.] Medical Decision Making [77-year-old unresponsive episode at home. Extensive work-up including CAT scan, chest x-ray, venous study of the right leg and labs are basically all unremarkable her baseline. She is doing well on repeat exam at 7 PM. An extensive discussion with both her and her family. I discussed with them possible overnight admission for dysrhythmia even though clinically I have no signs of that nor has she had any palpitations. She is comfortable being discharged home as is the family. To follow-up with her primary care physician.] Other additions or changes: [None] Lab Data Labs: Laboratory Results - last 24 hr 09/07/22 09/07/22 09/07/22 16:45 16:45 16:45 WBC 5.7 RBC 3.67 L Hgb 11.4 L Hct 36.4 L MCV 99.2 H MCH 31.1 MCHC 31.3 L RDW Std Deviation 48.9 H RDW Coeff of Bashir 13.4 Plt Count 210 MPV 9.1 Immature Gran % (Auto) 0.300 Neut % (Auto) 54.1 Lymph % (Auto) 33.0 Andrew % (Auto) 8.6 Eos % (Auto) 3.5 Baso % (Auto) 0.5 Absolute Neuts (auto) 3.1 Absolute Lymphs (auto) 1.89 Nucleated RBC % 0 PT 25.4 H INR 2.3 Sodium 142 Potassium 3.9 Chloride 107 Carbon Dioxide 29.0 Anion Gap 6 BUN 12 Creatinine 1.06 H Estim Creat Clear Calc 66.51 Est GFR (MDRD) Af Amer 64 Est GFR (MDRD) Non-Af 53 L BUN/Creatinine Ratio 11.3 Glucose 72 L Calcium 8.2 L Troponin I High Sens 3 Urine Color Urine Clarity Urine pH Ur Specific [place] Urine Protein Urine Glucose (UA) Urine Ketones Urine Occult Blood Urine Nitrite Urine Bilirubin Urine Urobilinogen Ur Leukocyte Esterase Urine RBC Urine WBC Ur Squamous Epith Cells Urine Bacteria Hyaline Casts Urine Mucus 09/07/22 18:00 WBC RBC Hgb Hct MCV MCH MCHC RDW Std Deviation RDW Coeff of Bashir Plt Count MPV Immature Gran % (Auto) Neut % (Auto) Lymph % (Auto) Andrew % (Auto) Eos % (Auto) Baso % (Auto) Absolute Neuts (auto) Absolute Lymphs (auto) Nucleated RBC % PT INR Sodium Potassium Chloride Carbon Dioxide Anion Gap BUN Creatinine Estim Creat Clear Calc Est GFR (MDRD) Af Amer Est GFR (MDRD) Non-Af BUN/Creatinine Ratio Glucose Calcium Troponin I High Sens Urine Color Yellow Urine Clarity Clear Urine pH 5.0 Ur Specific [place] 1.020 Urine Protein Negative Urine Glucose (UA) Normal Urine Ketones Negative Urine Occult Blood Negative Urine Nitrite Negative Urine Bilirubin Negative Urine Urobilinogen Normal Ur Leukocyte Esterase Negative Urine RBC 0 SEEN Urine WBC 0 SEEN Ur Squamous Epith Cells 0-5 SEEN Urine Bacteria 1+ Hyaline Casts 25-50 SEEN Urine Mucus 3+ Radiography Chest X-Ray - ED: 1 View, Read by ED Physician, Read by Radiologist, Heart, Lungs, Mediastinum, Bony Structures, No Acute Disease and Chronic Changes Diagnostic Testing: Clinical Impression(s) from Imaging Studies Brain CT 09/07/22 17:03 IMPRESSION: No acute findings. Mild microvascular ischemic changes. Atrophy. Electronically Signed: Claire Cormier MD at 17:57 EDT Reading Location ID and State: Jagdish Caal MD Tel , Service support , Venous Duplex 09/07/22 17:17 IMPRESSION: Normal right lower extremity duplex venous ultrasound. Electronically Signed: Claire Cormier MD at 18:31 EDT Reading Location ID and State: Jagdish Caal MD Tel , Service support , Chest X-Ray 09/07/22 17:22 IMPRESSION: No acute cardiopulmonary disease or major interval change. Electronically Signed: Rodriguez McleanDO at 17:40 EDT Reading Location ID and State: [address] [place] [address] Tel [phone], Service support , Chest x-ray, portable, single view shows no acute abnormality. Read by myself and radiologist. Normal cardiac silhouette. No infiltrate. Discharge Plan Triage Chief Complaint: Confusion ED Midlevel Provider: Juwan Cruz ED Provider: Benja Mosley Dx/Rx/DC Orders Clinical Impression: Near syncope Instructions: Causes of Syncope, Dizziness Fainting Causes Prescriptions: No Action gabapentin 300 mg capsule 300 mg PO BID 30 Days Qty: 90 escitalopram oxalate 5 mg tablet 10 mg PO DAILY 30 Days Qty: 60 pyridoxine (vitamin B6) 100 mg tablet 100 mg PO DAILY cholecalciferol (vitamin D3) 50 mcg (2,000 unit) capsule 50 mcg PO DAILY warfarin 3 mg tablet 3 mg PO DAILY Qty: 90 3RF Protocol: Dose Management Condition: Saturday Dose/Route: 1.5 mg Instruction: 0.5 x 3 mg tablets Condition: Saturday Dose/Route: 3 mg Instruction: 1 x 3 mg tablet Condition: Saturday Dose/Route: 3 mg Instruction: 1 x 3 mg tablet Condition: Saturday Dose/Route: 1.5 mg Instruction: 0.5 x 3 mg tablets Condition: Dose/Route: 1.5 mg Instruction: 0.5 x 3 mg tablets Condition: Saturday Dose/Route: 1.5 mg Instruction: 0.5 x 3 mg tablets Condition: Saturday Dose/Route: 1.5 mg Instruction: 0.5 x 3 mg tablets Protocol Text: Adjustment Start Date: Saturday07/17/22 INR Value: 2.5 INR Date: 07/17/22 Recheck Date: 08/14/22 Rx Instructions: take daily and as directed warfarin 3 mg tablet 1.5 mg PO Qty: 60 3RF Protocol: Dose Management Condition: Saturday Dose/Route: 1.5 mg Instruction: 0.5 x 3 mg tablets Condition: Saturday Dose/Route: 3 mg Instruction: 1 x 3 mg tablet Condition: Saturday Dose/Route: 3 mg Instruction: 1 x 3 mg tablet Condition: Saturday Dose/Route: 1.5 mg Instruction: 0.5 x 3 mg tablets Condition: Dose/Route: 1.5 mg Instruction: 0.5 x 3 mg tablets Condition: Saturday Dose/Route: 1.5 mg Instruction: 0.5 x 3 mg tablets Condition: Saturday Dose/Route: 1.5 mg Instruction: 0.5 x 3 mg tablets Protocol Text: Adjustment Start Date: Saturday07/17/22 INR Value: 2.5 INR Date: 07/17/22 Recheck Date: 08/14/22 atorvastatin 10 mg tablet 10 mg PO DAILY coenzyme Q10 [Q-Sorb Co Q-10] 100 mg capsule 100 mg PO DAILY tamoxifen 20 mg tablet 20 mg PO DAILY 90 Days Qty: 90 3RF tramadol 50 mg tablet 50 mg PO BID PRN losartan 100 mg tablet 100 mg PO DAILY Qty: 90 3RF acetaminophen 500 MG tablet 1,000 mg PO BID bupropion HCl 100 MG tablet 150 mg PO DAILY aiyudkvj-yis-cqmp-FA-lutein 1 EACH tablet 1 ea PO DAILY melatonin 3 mg tablet 10 mg PO QHS furosemide 40 mg tablet 40 mg PO DAILY Qty: 90 3RF metoprolol succinate 25 mg tablet extended release 24 hr 25 mg PO .COMPLEX Qty: 90 3RF Rx Instructions: 25 mg PO daily, may take one extra tablet daily for BP > 140 systolic or HR > 1110.; Primary Care Provider: J Luis Lai Referrals: J Luis Lai MD [Primary Care Provider] - Activity Restrictions/Additional Instructions: Please follow-up with your PCP. Return for any worsening syncope, chest pain, nausea or vomiting. Disposition Disposition: Home, Self Care
--- NOTE | 2022-09-07 17:17 | US_ITS ---
EXAM: US DUPLEX RIGHT LOWER EXTREMITY VEINS CLINICAL INDICATION: POSTERIOR RT CALF PAIN TECHNIQUE: Real-time duplex ultrasound scan of the right lower extremity veins integrating B-mode two-dimensional vascular structure, Doppler spectral analysis, color flow Doppler imaging and compression. This report was created using [employer] technology. COMPARISON: None. FINDINGS: DEEP VEINS: Unremarkable. No DVT in the visualized common femoral, femoral, proximal deep femoral or popliteal veins. The veins demonstrate normal color flow, are normally compressible, with normal phasic flow and/or augmentation response. SUPERFICIAL VEINS: Unremarkable. No thrombus in the visualized great saphenous vein. SOFT TISSUES: No acute findings. No popliteal cyst. US/Venous Duplex Imag/Limited/Uni IMPRESSION: Normal right lower extremity duplex venous ultrasound. Electronically Signed: Claire Cormier MD at 18:31 EDT Reading Location ID and State: [id number] / Tel , Service support ,
[2022-09-07 17:21] LABS: Absolute Lymphocyte Count 1.89 X10^3/uL (0.83-4.51); Absolute Neutrophil Count 3.1 X10^3/uL (2.0-7.7); Basophil# 0.03 X10^3/uL; Basophil% 0.5 % (0-1); Eosinophils% 3.5 % (0-5); Hematocrit 36.4 % (37-47); Hemoglobin 11.4 g/dL (12.0-15.0); Lymphocyte # 1.89 X10^3/ul (0.83-4.51); Mean Corp Hgb Conc 31.3 g/dL (32-36); Mean Corpuscular Hgb 31.1 pg (27.0-32.0); Mean Corpuscular Volume 99.2 fL (81-99); Mean Platelet Vol. 9.1 fl (6.2-12.0); Monocyte# 0.49 X10^3/uL; Monocyte% 8.6 % (0-10); NRBC Flagged by Analyzer 0 % (0-5); Neutrophil % 54.1 % (47-70); Platelet Count 210 K/mm3 (150-450); RBC Distribution Width CV 13.4 % (11.6-14.6); RBC Distribution Width SD 48.9 fl (35.1-43.9); Red Blood Count 3.67 M/mm3 (4.2-5.4); White Blood Count 5.7 K/mm3 (4.4-11.0)
--- NOTE | 2022-09-07 17:22 | RAD_ITS ---
STUDY: X-RAY CHEST REASON FOR EXAM: Female, 77 years old. Shortness of breath. Instances of unresponsiveness. TECHNIQUE: Single AP portable view of the chest. COMPARISON: CTA of the chest, 03/22/2022. Chest, 03/21/2020 FINDINGS: Limited inspiratory effort. The lungs are clear. There is no demonstrated pleural abnormality. Normal size heart. Normal mediastinum and jessy. Normal visualized pulmonary arteries. There is atherosclerotic calcification of the aortic arch with tortuosity. The thoracic spine is obscured by the mediastinum. Again seen is a left total shoulder replacement and right humeral head replacement. There is no demonstrated abnormality of the visualized soft tissue structures of the upper abdomen. RAD/Chest 1 View (Portable) IMPRESSION: No acute cardiopulmonary disease or major interval change. Electronically Signed: Rodriguez Mclean DO at 17:40 EDT ,
[2022-09-07 17:31] LABS: International Normalized Ratio 2.3; Prothrombin Time (Protime)PT. 25.4 SECONDS (11.7-14.9)
[2022-09-07 17:39] LABS: Anion Gap 6 (5-15); BUN 12 mg/dL (7-18); BUN/Creat Ratio 11.3 RATIO (10-20); Calcium,Total 8.2 mg/dL (8.5-10.1); Chloride 107 mmol/L (98-107); Creatinine, Serum 1.06 mg/dL (0.55-1.02); EST Glomerular Filtration Rate 53 mL/min (>60); Est Glom Filt Rate - Afr Amer 64 mL/min (>60); Estimated Creatinine Clearance 66.51 ml/min; Glucose 72 mg/dL (74-106); Potassium 3.9 mmol/L (3.5-5.1); Sodium Level 142 mmol/L (136-145); Troponin-I HS 3 pg/mL (3.0-54.0)
[2022-09-07 17:41] VITALS: BP 140/76; PULSE 70; RESP 13; O2SAT 97
[2022-09-07 18:05] VITALS: BP 142/76; PULSE 68; RESP 12; O2SAT 99
[2022-09-07 18:14] LABS: Red Blood Cells-Urine 0 SEEN /hpf (0-5); White Blood Cells 0 SEEN /hpf (0-5)
[2022-09-07 18:32] LABS: Color, Urine Yellow (Yellow); Glucose, Dipstick Normal (Normal); Ketone-Dipstick Negative (Negative); Leukocyte Esterase-Dipstick Negative /ul (Negative); Nitrite-Dipstick Negative (Negative); Occult Blood-Urine Negative /ul (Negative); Protein-Dipstick Negative (Negative); Urine Bilirubin Dipstick Negative (Negative); Urine Clarity Clear (Clear); Urine Urobilinogen Normal (Normal)
[2022-09-07 18:43] LABS: Squamous Epithelial Cells - UA 0-5 SEEN /hpf (5-10)
[2022-09-07 18:44] LABS: Bacteria 1+ /hpf (None Seen); Hyaline Cast 25-50 SEEN /lpf (0-5); Mucous, Urine 3+ /hpf (<or=2+)
[2022-09-07 19:00] VITALS: BP 154/81; PULSE 76; RESP 16; O2SAT 95
[2022-09-07 19:19] VITALS: BP 154/81; PULSE 62; RESP 14; O2SAT 96
== END 2022-09-07 19:20 | disposition home or self-care (01) ==
PROVIDERS: Nurse Practitioner; Emergency Provider Emergency Medicine; PCP Family Medicine; Visit Provider Emergency Medicine
DX: R55 Syncope and collapse (principal); I48.0 Paroxysmal atrial fibrillation; I48.92 Unspecified atrial flutter; E11.9 Type 2 diabetes mellitus without complications; I10 Essential (primary) hypertension; E78.5 Hyperlipidemia, unspecified; K58.9 Irritable bowel syndrome, unspecified; G47.30 Sleep apnea, unspecified; M79.661 Pain in right lower leg; E66.9 Obesity, unspecified; H59.022 Cataract (lens) fragments in eye following cataract surgery, left eye; Z85.3 Personal history of malignant neoplasm of breast; Z79.899 Other long term (current) drug therapy; Z79.01 Long term (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 of anticoagulants
CPT/HCPCS: 70450; 71045; 80048; 81001; 84484; 85025; 85610; 87428; 93005; 93971; 99284; P9612; A4216

== ENCOUNTER → 2022-09-19 | Outpatient (CLI) | payer MEDICARE, OTHER, SELFPAY ==
[2019-09-15 09:55] VITALS: BMI 42.3
[2022-09-19 15:33] LABS: PTHIN 252.7 pg/mL (18.4-80.1)
[2022-09-19 15:42] LABS: Anion Gap 3 (5-15); BUN 12 mg/dL (7-18); BUN/Creat Ratio 11.7 RATIO (10-20); Calcium,Total 8.6 mg/dL (8.5-10.1); Chloride 108 mmol/L (98-107); Creatinine, Serum 1.03 mg/dL (0.55-1.02); EST Glomerular Filtration Rate 55 mL/min (>60); Est Glom Filt Rate - Afr Amer 67 mL/min (>60); Glucose 80 mg/dL (74-106); Phosphorus 2.9 mg/dL (2.5-4.9); Potassium 4.5 mmol/L (3.5-5.1); Sodium Level 140 mmol/L (136-145); Thyroid Stim Hormone (TSH) 1.82 uIU/mL (0.358-3.74)
== END | disposition home or self-care (01) ==
PROVIDERS: PCP Family Medicine; Referring Provider Family Medicine; Visit Provider Family Medicine
DX: M81.0 Age-related osteoporosis without current pathological fracture (principal); Z76.89 Persons encountering health services in other specified circumstances
CPT/HCPCS: 36415; 80048; 82330; 83970; 84100; 84443

== ENCOUNTER 2022-10-24 11:11 | Outpatient (RCR) | payer MEDICARE, OTHER, SELFPAY ==
[2019-09-15 09:55] VITALS: BMI 42.3
[2022-08-02 00:56] VITALS: BMI 43.7
--- NOTE | 2022-10-16 12:37 | RAD_ITS ---
STUDY: X-RAY - LUMBOSACRAL SPINE REASON FOR EXAM: Female, 77 years old. Low back pain. TECHNIQUE: 6 view(s) of the lumbosacral spine, including lateral flexion and extension views, were obtained. COMPARISON: March 28, 2021. FINDINGS: Marked osteopenia. Normal lumbar lordosis. Rotatory levoscoliosis unchanged. There is normal alignment of the vertebrae. Limited flexion and extension with no abnormal motion. Diffuse facet sclerosis. Fusion at L4-5 unchanged. Diffuse intervertebral disc space narrowing with osteophyte formation, unchanged. Normal bilateral sacral ala, sacroiliac joints, and visualized sacrum. Stable phleboliths and vascular calcifications. RAD/L/S Spine w Bend Min 6 Vw IMPRESSION: Stable osteopenia, postsurgical changes and diffuse moderate to marked lumbosacral spondylosis with levoscoliosis. Limited flexion and extension with no abnormal motion. No acute abnormality. Electronically Signed: Abebe Wright, at 13:34 EST ,
[2022-10-16 12:50] LABS: INR Fingerstick 1.6; Prothrombin Time Fingerstick 19.5 SEC (11.7-14.9)
[2022-10-24 11:20] LABS: INR Fingerstick 2.2
== END 2022-10-31 18:00 | disposition home or self-care (01) ==
LOC: MTLAB 11:11
PROVIDERS: Family Provider Family Medicine; PCP Family Medicine; Referring Provider Internal Medicine Cardiovascular Disease; Visit Provider Internal Medicine Cardiovascular Disease
DX: M54.50 Low back pain, unspecified (principal); I48.0 Paroxysmal atrial fibrillation; Z79.01 Long term (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 of anticoagulants
CPT/HCPCS: 36416; 72114; 85610

== ENCOUNTER 2023-04-12 14:29 | Outpatient (RCR) | payer MEDICARE, SELFPAY ==
[2019-09-15 09:55] VITALS: BMI 42.3
[2022-11-01 02:19] VITALS: BMI 43.7
[2023-04-12 14:46] LABS: INR Fingerstick 2.9
== END 2023-04-12 15:29 | disposition home or self-care (01) ==
LOC: MTLAB 14:29
PROVIDERS: Family Provider Family Medicine; PCP Family Medicine; Referring Provider Internal Medicine Cardiovascular Disease; Visit Provider Internal Medicine Cardiovascular Disease
DX: Z79.01 Long term (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 of anticoagulants (principal); I48.0 Paroxysmal atrial fibrillation
CPT/HCPCS: 36416; 85610

== ENCOUNTER 2023-05-27 10:59 | Outpatient (RCR) | payer MEDICARE, SELFPAY ==
[2019-09-15 09:55] VITALS: BMI 42.3
[2023-05-02 08:00] VITALS: BMI 43.7
[2023-05-27 17:07] LABS: INR Fingerstick 2.1; Prothrombin Time Fingerstick 22.8 SEC (11.7-14.9)
== END 2023-05-27 18:00 | disposition home or self-care (01) ==
LOC: MTLAB 10:59
PROVIDERS: Family Provider Family Medicine; PCP Family Medicine; Referring Provider Internal Medicine Cardiovascular Disease; Visit Provider Internal Medicine Cardiovascular Disease
DX: Z79.01 Long term (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 of anticoagulants (principal)
CPT/HCPCS: 36416; 85610

== ENCOUNTER 2023-07-05 14:45 | Outpatient (RCR) | payer MEDICARE, SELFPAY ==
[2019-09-15 09:55] VITALS: BMI 42.3
[2023-06-01 02:17] VITALS: BMI 43.7
[2023-07-05 14:52] LABS: INR Fingerstick 2.7; Prothrombin Time Fingerstick 29.5 SEC (11.7-14.9)
== END 2023-07-05 18:00 | disposition home or self-care (01) ==
LOC: MTLAB 14:45
PROVIDERS: Family Provider Family Medicine; PCP Family Medicine; Referring Provider Internal Medicine Cardiovascular Disease; Visit Provider Internal Medicine Cardiovascular Disease
DX: I48.0 Paroxysmal atrial fibrillation (principal); Z79.01 Long term (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 of anticoagulants
CPT/HCPCS: 36416; 85610

== ENCOUNTER 2023-07-30 11:29 | Outpatient (CLI) | payer MEDICARE, SELFPAY ==
[2019-09-15 09:55] VITALS: BMI 42.3
[2023-07-30 15:39] LABS: Hematocrit 37.9 % (37-47); Hemoglobin 11.6 g/dL (12.0-15.0); Mean Corp Hgb Conc 30.6 g/dL (32-36); Mean Corpuscular Hgb 30.4 pg (27.0-32.0); Mean Corpuscular Volume 99.2 fL (81-99); Mean Platelet Vol. 9.6 fl (6.2-12.0); Platelet Count 211 K/mm3 (150-450); RBC Distribution Width CV 13.9 % (11.6-14.6); RBC Distribution Width SD 50.6 fl (35.1-43.9); Red Blood Count 3.82 M/mm3 (4.2-5.4); White Blood Count 5.1 K/mm3 (4.4-11.0)
[2023-07-30 15:58] LABS: ALB/GLOB Ratio 1.1 RATIO (0.9-2.4); AST(SGOT) 21 U/L (15-37); Alanine Aminotransfer ALT/SGPT 22 U/L (13-56); Albumin, Serum 3.5 g/dL (3.2-5.0); Alkaline Phosphatase 64 U/L (45-117); Anion Gap 5 (5-15); BUN 13 mg/dL (7-18); BUN/Creat Ratio 11.7 RATIO (10-20); Chloride 104 mmol/L (98-107); Cholesterol 149 mg/dL (200); Creatinine, Serum 1.11 mg/dL (0.55-1.02); EST Glomerular Filtration Rate 50 mL/min (>60); Est Glom Filt Rate - Afr Amer 61 mL/min (>60); Globulin 3.1 g/dL (2.2-4.2); Glucose 109 mg/dL (74-106); High Density Lipoprotein 49 mg/dL; Potassium 4.7 mmol/L (3.5-5.1); Protein, Total 6.6 g/dL (6.4-8.2); Sodium Level 139 mmol/L (136-145); Thyroid Stim Hormone (TSH) 2.07 uIU/mL (0.358-3.74); Triglycerides 126 mg/dL; Very Low Density Lipoprotein 25 mg/dL (5-40)
[2023-07-30 16:26] LABS: Vitamin B12 447 pg/mL (211-911); Vitamin D,25 Hydroxy 53.3 ng/mL
== END 2023-07-30 23:59 | disposition home or self-care (01) ==
LOC: MFPLAB 11:32
PROVIDERS: PCP Family Medicine; Visit Provider Family Medicine
DX: R53.83 Other fatigue (principal); E11.69 Type 2 diabetes mellitus with other specified complication; M81.0 Age-related osteoporosis without current pathological fracture
CPT/HCPCS: 36415; 80053; 80061; 82306; 82607; 84443; 85027

== ENCOUNTER 2023-08-09 12:55 | Outpatient (RCR) | payer MEDICARE, SELFPAY ==
[2019-09-15 09:55] VITALS: BMI 42.3
[2023-08-02 01:20] VITALS: BMI 43.7
[2023-08-09 13:03] LABS: INR Fingerstick 2.6; Prothrombin Time Fingerstick 28.3 SEC (11.7-14.9)
== END 2023-08-09 18:00 | disposition home or self-care (01) ==
LOC: MTLAB 12:55
PROVIDERS: Family Provider Family Medicine; PCP Family Medicine; Referring Provider Internal Medicine Cardiovascular Disease; Visit Provider Internal Medicine Cardiovascular Disease
DX: Z00.00 Encounter for general adult medical examination without abnormal findings (principal)
CPT/HCPCS: 36416; 85610

== ENCOUNTER → 2023-08-19 | Outpatient (CLI) | payer MEDICARE, OTHER, SELFPAY ==
[2019-09-15 09:55] VITALS: BMI 42.3
--- NOTE | 2023-08-19 09:40 | RAD_ITS ---
STUDY: X-RAY - UNILATERAL RIBS ( RIGHT ) REASON FOR EXAM: Female, 78 years old. R anterior chest wall pain after fall TECHNIQUE: 3 view(s) of the ribs. COMPARISON: PA and lateral chest August 19, 2023. FINDINGS: Normal visualized ribs without a demonstrated fracture. The visualized lung is clear and expanded. There is a visualized right shoulder arthroplasty. There is degenerative change in the thoracic spine. The visualized atherosclerotic disease of the aorta. There is visualized left shoulder arthroplasty on the chest x-ray. RAD/Ribs Unil 2V No CXR IMPRESSION: Study is limited by overlying soft tissue. No visualized acute fracture. Electronically Signed: Mere Block MD at 4:20 EDT Reading Location ID and State: [facility] / [place] Tel , Service support ,
--- NOTE | 2023-08-19 09:40 | RAD_ITS ---
INDICATION: pain after fall, R chest, hx breast cancer EXAMINATION: Frontal and lateral views of the chest. COMPARISON: Chest x-ray September 07, 2022. FINDINGS: Frontal and lateral views of the chest were obtained. The cardiac silhouette is borderline enlarged. No confluent airspace disease. No pleural effusion or pneumothorax. No acute fracture identified. Bilateral shoulder prostheses. RAD/Chest PA and Lateral IMPRESSION: No acute abnormality. Electronically Signed: Horacio Edwards MD at 1:01 EDT ,
== END | disposition home or self-care (01) ==
PROVIDERS: PCP Family Medicine; Referring Provider Family Medicine; Visit Provider Family Medicine
DX: R07.89 Other chest pain (principal)
CPT/HCPCS: 71046; 71100

== ENCOUNTER → 2023-08-22 | Outpatient (CLI) | payer MEDICARE, OTHER, SELFPAY ==
[2019-09-15 09:55] VITALS: BMI 42.3
--- NOTE | 2023-08-22 14:19 | BI_ITS ---
MAMMOGRAPHY - BILATERAL DIAGNOSTIC REASON FOR EXAM: Female, 78 years old. Right lateral/chest pain and tenderness. PERTINENT HISTORY: Personal history of breast cancer. Prior right lumpectomy and radiation treatment. TECHNIQUE: Digital bilateral breast shlomo (3D mammographic acquisition) in the CC and MLO projections. 2-D mediolateral oblique (MLO) and craniocaudad (CC) views of both breasts were obtained. CAD: Full Field Digital Mammography with Computer Added Detection was performed. COMPARISON: Comparison is made with prior examination of June 13, 2022 and June 12, 2021. FINDINGS: Breast Composition: There are scattered areas of fibroglandular density. There are no dominant masses or suspicious calcifications. Stable architectural distortion in the upper lateral aspect of the right breast incomplete with the prior right lumpectomy. This unchanged. Stable scattered microcalcifications bilaterally. No other significant abnormalities are identified. There has been no significant change since the prior study. BI/DIAG MAMM W/CAD, BILAT IMPRESSION: Stable bilateral diagnostic mammogram. With the patient''s history of the tenderness in the upper outer quadrant of the right breast, correlation with ultrasound is recommended. ASSESSMENT CATEGORY: BIRADS Category 0: Incomplete. Need additional imaging evaluation. A letter regarding these results will be sent to the patient by the facility within 30 days. Approximately 10% of breast cancers are not detected by mammography. A normal mammogram should not delay biopsy of a clinically suspicious abnormality. Electronically Signed: Forrest Rodriguez MD at 15:28 EDT ,
--- NOTE | 2023-08-22 15:09 | US_ITS ---
STUDY: ULTRASOUND BREAST - RIGHT REASON FOR EXAM: Female, 78 years old. Left breast pain following a fall. TECHNIQUE: Axial and longitudinal images of the RIGHT breast were performed with a high resolution ultrasound transducer. # OF IMAGES: 23 COMPARISON: Comparison is made with prior mammogram done earlier today. FINDINGS: RIGHT Breast: The lateral aspect of the right breast was examined with ultrasound. There is a 1.5 cm x 0.5 cm x 0.6 cm localized fluid collection. This may represent a resolving hematoma. US/Breast Limited Unilateral IMPRESSION: The area of pain corresponds to a 1.5 cm x 0.5 cm x 0.6 cm localized fluid collection. This is suggestive of a small resolving hematoma. ASSESSMENT CATEGORY: BIRADS Category 2: Benign. A letter regarding these results will be sent to the patient by the facility within 30 days. Electronically Signed: Forrest Rodriguez MD at 14:51 EDT ,
== END | disposition home or self-care (01) ==
PROVIDERS: PCP Family Medicine; Referring Provider Family Medicine; Visit Provider Family Medicine
DX: C50.911 Malignant neoplasm of unspecified site of right female breast (principal); R92.8 Other abnormal and inconclusive findings on diagnostic imaging of breast
CPT/HCPCS: 76642; 77062; 77066; G0279

== ENCOUNTER 2023-09-11 14:19 | Outpatient (RCR) | payer MEDICARE, SELFPAY ==
[2019-09-15 09:55] VITALS: BMI 42.3
[2023-09-01 04:55] VITALS: BMI 43.7
[2023-09-11 14:26] LABS: INR Fingerstick 1.9; Prothrombin Time Fingerstick 21.1 SEC (11.7-14.9)
== END 2023-09-11 18:00 | disposition home or self-care (01) ==
LOC: MTLAB 14:19
PROVIDERS: Family Provider Family Medicine; PCP Family Medicine; Referring Provider Internal Medicine Cardiovascular Disease; Visit Provider Internal Medicine Cardiovascular Disease
DX: I48.0 Paroxysmal atrial fibrillation (principal); I48.92 Unspecified atrial flutter; Z79.01 Long term (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 of anticoagulants
CPT/HCPCS: 36416; 85610

== ENCOUNTER → 2023-09-23 | Outpatient (CLI) | payer MEDICARE, SELFPAY ==
[2019-09-15 09:55] VITALS: BMI 42.3
--- NOTE | 2023-09-23 13:31 | ECHOD_ITS ---
Version 3 Reason For Study: PHTN Procedure This was a 2D Doppler, Color Flow transthoracic echocardiogram. Myocardial strain analysis was performed in this exam to aid in the assessment of cardiac function. Exam performed in department. Left Ventricle Normal LV size. Left ventricular systolic function is normal. The estimated ejection fraction is 60 %. Stage 1 diastolic dysfunction. No regional wall motion abnormalities noted. Right Ventricle Normal RV size. Normal systolic function. Atria Normal left atrium. Normal right atrium. Bubble contrast study negative for right to left interatrial shunt. Mitral Valve There is mild mitral annular calcification. Tricuspid Valve Normal tricuspid valve. Mild (1+) tricuspid valve insufficiency. Pulmonary artery systolic pressure is 30 mmHg. Aortic Valve Trisinus/trileaflet aortic valve. Mild focal aortic valve calcification. Mild (1+) aortic valve insufficiency. Pulmonic Valve The pulmonic valve is not well visualized. Great Vessels Normal aortic root. The pulmonary artery is normal size. Normal inferior vena cava. Pericardium/Pleural No pericardial effusion. Medication Performed a rapid injection of agitated mix of 9 cc saline and 1cc air to assess for atrial septal defect. MMode/2D Measurements & Calculations LVIDd: 4.6 cm IVSd: 1.1 cm Ao root diam: 3.3 cm LVIDs: 3.3 cm LVPWd: 0.95 cm RVDd: 2.7 cm FS: 27.6 % LAV(MOD-bp): 38.6 ml LVAd ap4: 22.6 cm2 SV(MOD-sp4): 35.1 ml LAV(MOD-bp) Indexed: 20.6 ml/m2 LVLd ap4: 7.4 cm LAV(MOD-sp2): 38.1 ml EDV(MOD-sp4): 58.1 ml LAV(MOD-sp4): 34.5 ml EDV(sp4-el): 58.7 ml LVAs ap4: 12.5 cm2 LVLs ap4: 5.8 cm ESV(MOD-sp4): 23.0 ml ESV(sp4-el): 22.6 ml EF(MOD-sp4): 60.4 % EF(sp4-el): 61.4 % SV(sp4-el): 36.1 ml LA A4 area: 14.3 cm2 LA dimension(2D): 3.5 cm RA A4 area: 11.2 cm2 TAPSE: 2.6 cm Time Measurements MV dec time: 0.23 sec Doppler Measurements & Calculations MV E max steve: 64.0 cm/sec Lat Peak E' Steve: 7.9 cm/sec Med Peak E' Steve: 5.5 cm/sec MV A max steve: 99.5 cm/sec E/E' lat: 8.1 E/E' med: 11.6 MV E/A: 0.64 MV dec slope: 276.6 cm/sec2 Ao V2 max: 187.7 cm/sec AI max steve: 376.0 cm/sec Ao max P.1 mmHg AI max P.5 mmHg Ao V2 mean: 147.0 cm/sec AI dec slope: 205.8 cm/sec2 Ao mean P.1 mmHg AI P1/2t: 535.2 msec Ao V2 VTI: 41.4 cm AV (velocity ratio): 0.58 LV V1 max: 116.0 cm/sec PA V2 max: 85.5 cm/sec PI end-d steve: 107.0 cm/sec LV V1 max P.4 mmHg LV V1 mean P.3 mmHg LV V1 mean: 86.9 cm/sec LV V1 VTI: 24.0 cm TR max steve: 249.6 cm/sec TR max P.9 mmHg ECHO/Echo Complete Interpretation Summary Normal LV size. Left ventricular systolic function is normal. The estimated ejection fraction is 60 %. Mild focal aortic valve calcification. Bubble contrast study negative for right to left interatrial shunt. Stage 1 diastolic dysfunction. Mild (1+) aortic valve insufficiency. Pulmonary artery systolic pressure is 30 mmHg. Ordering Physician: Bradley Gatica Referring Physician: Myles Lai Performed By: Laila Kamara, REBECCA, RVT
== END | disposition home or self-care (01) ==
LOC: CVS 13:30
PROVIDERS: PCP Family Medicine; Referring Provider Internal Medicine Critical Care Medicine; Visit Provider Internal Medicine Critical Care Medicine
DX: R06.00 Dyspnea, unspecified (principal)
CPT/HCPCS: 93306; A4216

== ENCOUNTER 2023-10-09 10:42 | Outpatient (RCR) | payer MEDICARE, SELFPAY ==
[2019-09-15 09:55] VITALS: BMI 42.3
[2023-10-01 23:05] VITALS: BMI 43.7
[2023-10-09 10:50] LABS: INR Fingerstick 2.4
== END 2023-10-31 18:00 | disposition home or self-care (01) ==
LOC: MTLAB 10:42
PROVIDERS: Family Provider Family Medicine; PCP Family Medicine; Referring Provider Internal Medicine Cardiovascular Disease; Visit Provider Internal Medicine Cardiovascular Disease
DX: I48.0 Paroxysmal atrial fibrillation (principal); I48.92 Unspecified atrial flutter; Z79.01 Long term (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 of anticoagulants
CPT/HCPCS: 36416; 85610

== ENCOUNTER → 2023-10-21 | Outpatient (CLI) | payer MEDICARE, OTHER, SELFPAY ==
[2019-09-15 09:55] VITALS: BMI 42.3
--- NOTE | 2023-10-21 14:06 | RAD_ITS ---
STUDY: X-RAY - LUMBAR SPINE REASON FOR EXAM: Female, 78 years old. Back pain. TECHNIQUE: 4 view(s) of the lumbar spine were obtained. COMPARISON: October 16, 2022. FINDINGS: Stable osteopenia. Normal lumbar lordosis. Moderate rotatory thoracolumbar scoliosis unchanged. 11 mm of anterolisthesis of L4 on L3, unchanged. 6 mm of anterolisthesis of L4 on L5, unchanged. Posterior fusion at L4-5, unchanged. Diffuse lower thoracic and lumbosacral facet sclerosis. Diffuse intervertebral disc space narrowing with osteophyte formation, unchanged. Vascular calcification. RAD/L/S Spine Min 4 Views IMPRESSION: Stable osteopenia, moderate thoracolumbar scoliosis, posterior fusion at L4-5 and moderate to marked lower thoracic and lumbosacral spondylosis. Electronically Signed: Abebe Wright MD at 14:25 EST ,
== END | disposition home or self-care (01) ==
LOC: MTRAD 14:04
PROVIDERS: PCP Family Medicine; Referring Provider Family Medicine; Visit Provider Family Medicine
DX: M51.36 Other intervertebral disc degeneration, lumbar region (principal)
CPT/HCPCS: 72110

== ENCOUNTER 2023-11-08 13:11 | Outpatient (RCR) | payer MEDICARE, SELFPAY ==
[2019-09-15 09:55] VITALS: BMI 42.3
[2023-11-01 04:16] VITALS: BMI 43.7
[2023-11-08 13:44] LABS: INR Fingerstick 2.5; Prothrombin Time Fingerstick 26.7 SEC (11.7-14.9)
== END 2023-12-01 18:00 | disposition home or self-care (01) ==
LOC: MTLAB 13:11
PROVIDERS: Family Provider Family Medicine; PCP Family Medicine; Referring Provider Internal Medicine Cardiovascular Disease; Visit Provider Internal Medicine Cardiovascular Disease
DX: I48.0 Paroxysmal atrial fibrillation (principal); Z79.01 Long term (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 of anticoagulants
CPT/HCPCS: 36416; 85610

== ENCOUNTER 2024-03-27 09:38 | Outpatient (RCR) | payer MEDICARE, OTHER, SELFPAY ==
[2019-09-15 09:55] VITALS: BMI 42.3
[2023-12-01 23:27] VITALS: BMI 43.7
[2024-03-30 15:08] LABS: INR Fingerstick 3.1; Prothrombin Time Fingerstick 33.6 SEC (11.7-14.9)
== END 2024-03-31 21:56 | disposition home or self-care (01) ==
LOC: MTLAB 09:38
PROVIDERS: Family Provider Family Medicine; PCP Family Medicine; Referring Provider Internal Medicine Cardiovascular Disease; Visit Provider Internal Medicine Cardiovascular Disease
DX: Z79.01 Long term (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 of anticoagulants; I48.0 Paroxysmal atrial fibrillation; I48.92 Unspecified atrial flutter
CPT/HCPCS: 36416; 85610

== ENCOUNTER 2024-04-15 12:30 | Outpatient (RCR) | payer MEDICARE, OTHER, SELFPAY ==
[2019-09-15 09:55] VITALS: BMI 42.3
[2024-03-31 21:56] VITALS: BMI 43.7
[2024-04-15 12:37] LABS: INR Fingerstick 2.9; Prothrombin Time Fingerstick 31.2 SEC (11.7-14.9)
== END 2024-05-01 18:00 | disposition home or self-care (01) ==
LOC: MTLAB 12:30
PROVIDERS: Family Provider Family Medicine; PCP Family Medicine; Referring Provider Internal Medicine Cardiovascular Disease; Visit Provider Internal Medicine Cardiovascular Disease
DX: I48.0 Paroxysmal atrial fibrillation; I48.92 Unspecified atrial flutter; Z79.01 Long term (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 of anticoagulants
CPT/HCPCS: 36416; 85610

== ENCOUNTER 2024-07-13 11:12 | Outpatient (RCR) | payer MEDICARE, OTHER, SELFPAY ==
[2019-09-15 09:55] VITALS: BMI 42.3
[2024-05-04 08:19] VITALS: BMI 43.7
[2024-07-13 11:25] LABS: INR Fingerstick 2.4; Prothrombin Time Fingerstick 24.7 SEC (11.7-14.9)
== END 2024-07-13 18:00 | disposition home or self-care (01) ==
LOC: MTLAB 11:12
PROVIDERS: Family Provider Family Medicine; PCP Family Medicine; Referring Provider Internal Medicine Cardiovascular Disease; Visit Provider Internal Medicine Cardiovascular Disease
DX: I48.0 Paroxysmal atrial fibrillation (principal); Z79.01 Long term (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 of anticoagulants
CPT/HCPCS: 36416; 85610

== ENCOUNTER → 2024-08-19 | Outpatient (CLI) | payer MEDICARE, OTHER, SELFPAY ==
[2019-09-15 09:55] VITALS: BMI 42.3
--- NOTE | 2024-08-19 16:41 | MRI_ITS ---
EXAM: MR LUMBAR SPINE WITHOUT AND WITH INTRAVENOUS CONTRAST CLINICAL INDICATION: SCIATICA INTO R LEG TECHNIQUE: Multiplanar and multisequence MR images of the lumbar spine without and with intravenous contrast. CONTRAST: 19 CC IV CLARISCAN COMPARISON: Lumbar spine radiographs, 10/21/2020.; CT abdomen and pelvis, 03/31/2019. FINDINGS: VERTEBRAE: Multilevel endplate osteophytosis and facet arthrosis. [place] left lumbar curvature. Posterior transpedicular fusion of L5 and S1 is again identified correlating with prior examinations. Associated susceptibility artifact from the spinal hardware obscures and distorts the adjacent tissues. There are multilevel Modic type II Modic type I endplate signal changes throughout the lumbar spine. No suspicious marrow space signal abnormality or pathologic marrow space enhancement is present. Trace grade 1 anterolisthesis of L5 upon S1. SPINAL CORD: There are degenerative changes partially visualized in the thoracic spine on sagittal images worst at T10-T11 where there is moderate to severe spinal canal stenosis and mass effect upon the spinal cord without distinct intramedullary signal abnormality. SOFT TISSUES: Postoperative changes in the paraspinal soft tissues as expected. DISCS/SPINAL CANAL/NEURAL FORAMINA: L1-L2: Central disc herniation superimposed upon a disc bulge and mild bilateral facet arthrosis. Mild spinal canal stenosis and moderate bilateral neural foraminal narrowing. L2-L3: Disc height loss and disc desiccation. Disc bulge with superimposed right foraminal disc herniation and moderate bilateral facet arthrosis. Mild spinal canal stenosis. Moderate left neural foraminal narrowing. Severe right neural foraminal narrowing with right L2 nerve root impingement. L3-L4: Trace degenerative retrolisthesis of L3 upon L4. Disc bulge/pseudobulge and moderate to severe bilateral facet arthrosis. Moderate spinal canal and bilateral neural foraminal narrowing, right greater than left with right L3 nerve root impingement and impingement of the bilateral traversing L4 nerve roots. L4-L5: Severe bilateral facet arthrosis with ligamentum flavum thickening. Endplate osteophytosis and disc bulge. Severe left and moderate right neural foraminal narrowing. Mild to moderate spinal canal stenosis. Impingement of the right L5 nerve root and right foraminal L4 nerve root. L5-S1: Disc uncovering/pseudobulge. Mild spinal canal stenosis and mild bilateral neural foraminal narrowing partially obscured. MRI/Spine Lumbar W/WO Contrast IMPRESSION: 1. There are degenerative changes partially visualized in the thoracic spine on sagittal images worst at T10-T11 where there is moderate to severe spinal canal stenosis and mass effect upon the spinal cord without distinct intramedullary signal abnormality. 2. Posterior transpedicular fusion of L5 and S1 is again identified correlating with prior examinations. Associated susceptibility artifact from the spinal hardware obscures and distorts the adjacent tissues. 4. Multilevel degenerative changes as detailed above. Multilevel spinal canal and neural foraminal stenosis. Right L2, right L3, bilateral L4, and right L5 nerve root impingement. RECOMMENDATION: Consider reevaluation by spine surgery. Electronically Signed: Austin Lauren DO at 23:46 EDT ,
[2024-08-19 17:14] LABS: CREATININE FINGERSTICK < 1.0 mg/dL (0.55-1.02); EGFR FINGERSTICK > 60.0000 mL/min (>60)
== END | disposition home or self-care (01) ==
LOC: MRI 16:27
PROVIDERS: PCP Family Medicine; Referring Provider Family Medicine; Visit Provider Family Medicine
DX: M54.30 Sciatica, unspecified side (principal)
CPT/HCPCS: 72158; A9575

== ENCOUNTER 2024-08-20 11:50 | Emergency (ER) | payer MEDICARE, OTHER, SELFPAY ==
[2019-09-15 09:55] VITALS: BMI 42.3
[2024-08-20] VITALS (7 sets, daily range): BP systolic 115–134; BP diastolic 62–82; PULSE 72–89; RESP 12–18; TEMP 36.8–37.1; O2SAT 95–97; BMI 47.7
--- NOTE | 2024-08-20 12:18 | EDS_ITS ---
HPI HPI - Fall History of Present Illness Chief Complaint: Lower Extremity Injury PFSH PFS Medical History (Reviewed 08/19/24 @ 13:12 by Brandie Doran [employer], [employer]) Osteoporosis Sleep apnea with use of continuous positive airway pressure (CPAP) Cataract, left eye Irritable bowel Wrist fracture, left Lung nodule, multiple Encounter for education Breast cancer, right breast Malignant neoplasm of central portion of right female breast Paroxysmal atrial flutter Spinal stenosis Essential (primary) hypertension nursing home (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 of anticoagulants Paroxysmal atrial fibrillation Obesity Type 2 diabetes mellitus Home Medications ?Medication ?Instructions ?Recorded ?Last Taken ?Type [id number] 8 mg-folic 400 1 ea PO DAILY supplement 03/02/17 Unknown History mcg-K 50 mcg-lutein 300 mcg tablet gabapentin 300 mg capsule 300 mg PO BID pain 30 days #90 caps 12/24/18 Unknown History coenzyme Q10 100 mg capsule 100 mg PO DAILY 08/09/21 Unknown History (Q-Sorb Co Q-10) melatonin 3 mg tablet 10 mg PO QHS sleep 02/07/22 Unknown History acetaminophen 500 mg tablet 1,000 mg PO ONCE 11/09/22 Unknown History calcium carbonate (Calcium 600) 600 mg PO BID 11/09/22 Unknown History cholecalciferol (vitamin D3) 50 50 mcg PO BID 11/09/22 Unknown History mcg (2,000 unit) capsule pyridoxine (vitamin B6) 100 mg 100 mg PO DAILY supplement 11/09/22 Unknown History tablet escitalopram oxalate 5 mg tablet 20 mg PO DAILY 10/18/23 Unknown History metoprolol succinate 25 mg 25 mg PO .COMPLEX afib #180 tabs 04/23/24 Unknown Rx tablet,extended release 24 hr tamoxifen 20 mg tablet 20 mg PO DAILY #90 TABLETS 05/14/24 Unknown Rx atorvastatin 10 mg tablet 10 mg PO DAILY #30 tabs 06/16/24 Unknown Rx furosemide 40 mg tablet 40 mg PO DAILY #30 tabs 06/16/24 Unknown Rx losartan 100 mg tablet 100 mg PO DAILY #30 tabs 06/16/24 Unknown Rx warfarin 3 mg tablet 3 mg PO .COMPLEX #90 TABLETS 06/16/24 Unknown Rx oxycodone-acetaminophen 5 mg-325 tab PO 08/19/24 Unknown History mg tablet Allergy/AdvReac Type Severity Reaction Status Date / Time No Known Allergies Allergy Verified 08/20/24 12:05 Family History (Reviewed 08/19/24 @ 13:12 by Brandie Doran [employer], [employer] INS[employer]) Sister CVA (cerebral vascular accident) Father CAD (coronary artery disease) Hypertension Mother Hypertension CAD (coronary artery disease) Surgical History (Reviewed 08/19/24 @ 13:12 by Brandie Doran [employer], FIN[employer] INSPECTOR [employer]) Status post right breast lumpectomy S/P right breast biopsy (03/05/19) S/P shoulder surgery H/O dilation and curettage H/O hand surgery S/P carpal tunnel release h/o breast lumpectomy H/O: hysterectomy H/O total knee replacement History of tonsillectomy History of back surgery History of radiofrequency ablation procedure for cardiac arrhythmia (03/20/11) History of gastric bypass Social History (Reviewed 08/19/24 @ 13:12 by Brandie Doran [employer], FIN[employer] INS[employer]OR [employer]) Smoking Status: Never smoker Electronic Cigarette Use: not used second hand exposure: Yes (Childhood ) alcohol intake: current alcohol intake frequency: holidays/special occasions only Alcohol type: wine substance use type: does not use EXAM Physical Exam Const Vital Signs: 08/20/24 11:50 08/20/24 11:58 08/20/24 13:50 Temperature 98.8 F Temperature Source Oral Pulse Rate 89 79 Respiratory Rate 17 17 Respiratory Effort Respiratory Depth Respiratory Pattern Blood Pressure 123/82 H 123/73 H Blood Pressure Mean 95 89 Pulse Ox 96 Oxygen Delivery Method Nasal Cannula Room Air Room Air Oxygen Flow Rate (L/min) 2 08/20/24 13:55 08/20/24 15:00 08/20/24 17:00 Temperature Temperature Source Pulse Rate 76 81 Respiratory Rate 18 14 Respiratory Effort Normal Non-Labored Respiratory Depth Normal Respiratory Pattern Normal Blood Pressure 123/78 H 134/73 H Blood Pressure Mean 93 93 Pulse Ox 95 Oxygen Delivery Method Room Air Room Air Oxygen Flow Rate (L/min) 08/20/24 19:00 Temperature Temperature Source Pulse Rate 72 Respiratory Rate 12 Respiratory Effort Respiratory Depth Respiratory Pattern Blood Pressure 123/74 H Blood Pressure Mean 90 Pulse Ox 97 Oxygen Delivery Method Room Air Oxygen Flow Rate (L/min) MDM MDM MDM Narrative Medical decision making narrative: HISTORY OF PRESENT ILLNESS: 79-year-old female history of A-fib on Coumadin, TERRY, hypertension, breast cancer, hyperlipidemia presents with fall. Notes she woke up this morning and was confused states that she fell down injuring her right leg. Questionable head trauma. Denies focal weakness. REVIEW OF SYSTEMS: Pertinent positives: Right leg pain Pertinent negatives: Loss of consciousness PHYSICAL EXAM: Nursing triage notes reviewed, Vital signs reviewed Primary Survey Airway: Intact Breathing: Bilateral breath sounds Circulation: Palpable bilateral femorals, Palpable bilateral radial, Palpable bilateral DP and Palpable bilateral PT Disability / Spine precautions GCS Score: Eye Openin Verbal Response: 5 Motor Response: 6 Secondary Survey Constitutional: Please see [facility] Head: Atraumatic, Midface stable, NO jaw malocclusion, No Cephalohematoma, and No Lacerations noted Eye: Pupils equal round and reactive to light, Extraocular muscles intact and No periorbital ecchymosis or stepoff, no evidence of entrapment ENT: Oropharynx clear, no lacerations, no hemotympanum, no raccoon eyes or faulkner sign Cervical spine / Neck: No cervical spine bony tenderness, crepitance, or stepoff deformity Trachea midline Lungs: Clear to auscultation, No asymmetric rise and No crepitus, no flail chest Cardiac: Regular rate and rhythm and No murmurs Abdomen: Soft, Nontender and No rebound Pelvis: Pelvis stable to compression : No evidence of genital injury Back: No midline bony tenderness to thoracic/lumbar/sacral spines Neuro: At baseline, intact strength and sensation in bilateral upper and lower extremities. 2+ patellar reflexes bilaterally. Extremities: NO gross Deformities, TTP over right hip, bruising noted over right hip. Intact internal/external rotation right hip. Legs essentially equal in length. Psych: Normal affect Nursing triage notes reviewed, Vital signs reviewed MEDICAL DECISION MAKING: Chief Complaint: Hip pain External records reviewed: Imaging reviewed: No recent advanced imaging of the leg noted [facility] Narrative: The patient was initially hemodynamically stable, afebrile and nontoxic- appearing. Primary secondary trauma survey concerning for right leg injury, intracranial injury or cervical spine injury. I considered the following differential diagnosis: As per above ALL IMAGES (IF OBTAINED) HAVE BEEN PERSONALLY REVIEWED AND INTERPRETED BY MYSELF. Patient was bladder scanned at 675 cc of urine consistent with urinary retention. Hay was placed. CT scan of the head, cervical spine showed no evidence of obvious traumatic injury X-ray of the patient's right hip and pelvis was read reviewed person myself showed no evidence of obvious bony abnormality CBC with no leukocytosis, noted mild anemia but no thrombocytopenia BMP without significant electrolyte disturbances, noted baseline CKD, no evidence of metabolic acidosis or endorgan hypoperfusion Urinalysis without evidence of infection INR supratherapeutic will have the patient hold Heart dose. Upon reassessment patient was ambulatory. She stated she felt comfortable at home. Discussed Hay care. Discussed urology follow-up (Dr. Wade) Strict return precautions were discussed. Coagulopathy was discussed. Discussed holding next to warfarin dose and follow- up with anticoagulation clinic. The patient and/or family, caregivers express understanding. The patient and/or family, caregivers agrees with the plan. Shared decision making: I will have a discussion with the patient and or visitors regarding risk/benefits of further testing or admission. They will be made aware of of the risk/benefits inherent in this decision they will be given the opportunity to voice understanding. Total critical care time today provided was at least 0 minutes. This excludes separately billable procedures. Critical care time (if documented) is secondary to the patient having high probability of clinically significant/life threatening deterioration in the patient's condition which required my urgent intervention. Impression: 1. Fall 2. Right hip contusion 3. Urinary retention 4. Elevated INR Dispo: Discharge home This note was generated with Miso dictation software. It may contain incorrect words, spelling, and punctuation that were not noted in review of the chart prior to signing. Lab Data Labs: Laboratory Results - last 24 hr 08/20/24 08/20/24 08/20/24 14:20 14:25 17:00 WBC 9.8 RBC 3.44 L Hgb 10.2 L Hct 32.9 L MCV 95.6 MCH 29.7 MCHC 31.0 L RDW Std Deviation 47.8 H RDW Coeff of Bashir 13.8 Plt Count 169 MPV 8.8 Immature Gran % (Auto) 0.500 Neut % (Auto) 83.1 H Lymph % (Auto) 10.7 L [place] % (Auto) 5.5 Eos % (Auto) 0.0 Baso % (Auto) 0.2 Absolute Neuts (auto) 8.2 H Absolute Lymphs (auto) 1.05 Nucleated RBC % 0 PT 52.4 H INR 5.9 H* Sodium 139 Potassium 4.7 Chloride 106 Carbon Dioxide 28.0 Anion Gap 5 BUN 23 H Creatinine 1.30 H Estim Creat Clear Calc 36.85 Est GFR (MDRD) Af Amer 51 L Est GFR (MDRD) Non-Af 42 L BUN/Creatinine Ratio 17.7 Glucose 159 H Calcium 8.1 L Urine Color Yellow Urine Clarity Clear Urine pH 5.0 Ur Specific Elim 1.020 Urine Protein 15 H Urine Glucose (UA) Normal Urine Ketones Negative Urine Occult Blood 50 H Urine Nitrite Negative Urine Bilirubin Negative Urine Urobilinogen 1 H Ur Leukocyte Esterase Negative Urine RBC 0-5 SEEN Urine WBC 0 SEEN Ur Squamous Epith Cells 0-5 SEEN Ur Renal Epithelial Cell 0-5 SEEN Urine Bacteria 1+ Urine Mucus 0 SEEN Radiography Diagnostic Testing: Clinical Impression(s) from Imaging Studies Brain CT 08/20/24 12:31 IMPRESSION: Chronic involutional changes of the brain. Electronically Signed: Forrest Rodriguez MD at 13:26 EDT , Cervical Spine CT 08/20/24 12:31 IMPRESSION: Multilevel degenerative changes, as described above. Electronically Signed: Forrest Rodriguez MD at 13:29 EDT , Hip/Pelvis X-Ray 08/20/24 12:31 IMPRESSION: Joint space narrowing of both hip joints. No fracture or dislocation. Electronically Signed: Forrest Rodriguez MD at 14:27 EDT , Discharge Plan Triage Chief Complaint: Lower Extremity Injury Other Complaint: Fall ED Provider: Neri Souza Dx/Rx/DC Orders Instructions: ED Contusion, Lower Extremity, ED Urinary Retention, Female Prescriptions: No Action gabapentin 300 mg capsule 300 mg PO BID 30 Days Qty: 90 pyridoxine (vitamin B6) 100 mg tablet 100 mg PO DAILY cholecalciferol (vitamin D3) 50 mcg (2,000 unit) capsule 50 mcg PO BID coenzyme Q10 [Q-Sorb Co Q-10] 100 mg capsule 100 mg PO DAILY calcium carbonate [Calcium 600] 600 mg calcium (1,500 mg) tablet 600 mg PO BID escitalopram oxalate 5 mg tablet 20 mg PO DAILY oxycodone-acetaminophen 5-325 mg tablet PO [id number]-[id number]-FA-vit K-lut 1 EACH tablet 1 ea PO DAILY melatonin 3 mg tablet 10 mg PO QHS acetaminophen 500 mg tablet 1,000 mg PO ONCE metoprolol succinate 25 mg tablet extended release 24 hr 25 mg PO .COMPLEX Qty: 180 3RF Rx Instructions: 25 mg PO daily, may take one extra tablet daily for BP > 140 systolic or HR > 110.; tamoxifen 20 mg tablet 20 mg PO DAILY Qty: 90 3RF atorvastatin 10 mg tablet 10 mg PO DAILY Qty: 30 3RF furosemide 40 mg tablet 40 mg PO DAILY Qty: 30 3RF losartan 100 mg tablet 100 mg PO DAILY Qty: 30 3RF warfarin 3 mg tablet 3 mg PO .COMPLEX Qty: 90 3RF Protocol: Dose Management Condition: Saturday Dose/Route: 1.5 mg Instruction: 0.5 x 3 mg tablets Condition: Saturday Dose/Route: 3 mg Instruction: 1 x 3 mg tablet Condition: Saturday Dose/Route: 3 mg Instruction: 1 x 3 mg tablet Condition: Saturday Dose/Route: 1.5 mg Instruction: 0.5 x 3 mg tablets Condition: Dose/Route: 1.5 mg Instruction: 0.5 x 3 mg tablets Condition: Saturday Dose/Route: 1.5 mg Instruction: 0.5 x 3 mg tablets Condition: Saturday Dose/Route: 1.5 mg Instruction: 0.5 x 3 mg tablets Protocol Text: Adjustment Start Date: Saturday07/13/24 INR Value: 2.4 INR Date: 07/13/24 Recheck Date: 08/12/24 Rx Instructions: 3 mg orally Every Saturday and Saturday: take 1/2 tablet all other days of the week OR as directed. Please give extra tablets for PRN dose changes. Primary Care Provider: Myles Lai Referrals: Jessy Wade MD [Med Staff - Active Staff] - Activity Restrictions/Additional Instructions: Thank you for trusting us with your care today! Please take Tylenol (2 pills, 650 mg), ibuprofen (2 pills, 400 mg) every 6 hours as needed for pain and fever control. Please take oxycodone judiciously. 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 Please take care to empty your Hay regularly as needed. Our nursing will give you instructions on how to empty your Hay. Please return to the emergency department if your symptoms change or worsen. Please hold warfarin for next 2 days. Please follow with your primary care physician for further outpatient evaluation and management. Print Language: Romanian Disposition Disposition: Home, Self Care
--- NOTE | 2024-08-20 12:31 | CT_ITS ---
STUDY: CT CERVICAL SPINE WITHOUT CONTRAST REASON FOR EXAM: Female, 79 years old. History of fall. Confusion. RADIATION DOSAGE (If Supplied By Facility): CTDIvol = ( 21.63 ) mGy, DLP = ( 376.11 ) mGycm TECHNIQUE: High resolution transaxial imaging was performed without contrast material. Sagittal and coronal images were reconstructed. Individualized dose optimization techniques were used for this CT. COMPARISON: None FINDINGS: Normal craniovertebral junction. There are degenerative changes of the anterior atlantoaxial articulation. Normal odontoid process. There is straightening of the normal cervical lordosis. Multilevel facet joint osteoarthritis and hypertrophy. C2-3: Facet joint osteoarthritis and hypertrophy worse on the left side. No significant stenosis seen. C3-4: Mild degree of disc space narrowing. Spondylosis. Hypertrophy of the facet joints worse on the left side with uncovertebral arthrosis. Marked degree of left neural foraminal stenosis and central canal stenosis due to posterior spondylosis. C4-5: Minimal anterior listhesis of C4 on C5 due to facet joint osteoarthritis and hypertrophy. Disc space narrowing. Spondylosis. Facet joint osteoarthritis and central canal narrowing due to posterior spondylosis. C5-6: Moderate degree of disc space narrowing. Facet joint osteoarthritis and hypertrophy worse on the right side. Bilateral neural foraminal stenosis. C6-7: Moderate degree of this space narrowing. Uncovertebral arthrosis. Bilateral neural foraminal stenosis right greater than left. C7-T1: Disc space narrowing. Atherosclerotic calcification of the cavernous portions of the internal carotid arteries bilaterally. CT/Spine Cervical without Contras IMPRESSION: Multilevel degenerative changes, as described above. Electronically Signed: Forrest Rodriguez MD at 13:29 EDT ,
--- NOTE | 2024-08-20 12:31 | RAD_ITS ---
STUDY: X-RAY - PELVIS AND RIGHT HIP REASON FOR EXAM: Female, 79 years old. Right hip pain following a fall. TECHNIQUE: views of the pelvis and hip. COMPARISON: None. FINDINGS: There is a non-specific bowel gas pattern. There are multiple calcified phleboliths. Prior fusion in the lower lumbar spine. Normal bilateral iliac wings, sacroiliac joints and visualized sacrum. Normal bilateral superior and inferior pubic rami. There is narrowing with sclerosis of the pubic symphysis. Normal bilateral ischial tuberosities. Normal visualized femoral head. Normal acetabulum. There is moderate articular joint space narrowing of the hip. Moderate degree of joint space narrowing of the left hip joint. RAD/HIP, UNI W/ Pelvis 2-3 Views IMPRESSION: Joint space narrowing of both hip joints. No fracture or dislocation. Electronically Signed: Forrest Rodriguez MD at 14:27 EDT ,
--- NOTE | 2024-08-20 12:31 | CT_ITS ---
STUDY: CT BRAIN WITHOUT CONTRAST REASON FOR EXAM: Female, 79 years old. Head trauma on coumadin. Confusion. RADIATION DOSAGE (If Supplied By Facility): CTDIvol = ( 47.06 ) mGy, DLP = ( 890.33 ) mGycm TECHNIQUE: Transaxial CT imaging of the brain was performed without administration of intravenous contrast material. Individualized dose optimization techniques were used for this CT. COMPARISON: No relevant priors. FINDINGS: Normal soft tissue structures. Normal calvarium. There is mild cerebral atrophy with widening of the extra-axial spaces and ventricular dilatation. Normal white matter tracts of the cerebral hemispheres. Normal basal ganglia and thalami. Normal brainstem. There is mild cerebellar atrophy. There is no intracranial hemorrhage. There are no findings of an acute ischemic infarction. Atherosclerotic plaque formation of the vertebral arteries and cavernous portions of the internal carotid arteries bilaterally. Normal visualized paranasal sinuses. CT/Brain/Head without Contrast IMPRESSION: Chronic involutional changes of the brain. Electronically Signed: Forrest Rodriguez MD at 13:26 EDT ,
[2024-08-20] MEDS: 0.9% Normal Saline (500mL Bag) 500 ML 999 ML IV (13:08)
[2024-08-20 14:29] LABS: Mucous, Urine 0 SEEN /hpf (<or=2+); White Blood Cells 0 SEEN /hpf (0-5)
[2024-08-20 14:35] LABS: Absolute Lymphocyte Count 1.05 X10^3/uL (0.83-4.51); Absolute Neutrophil Count 8.2 X10^3/uL (2.0-7.7); Basophil# 0.02 X10^3/uL; Basophil% 0.2 % (0-1); Hematocrit 32.9 % (37-47); Hemoglobin 10.2 g/dL (12.0-15.0); Lymphocyte # 1.05 X10^3/ul (0.83-4.51); Lymphocyte % 10.7 % (19-41); Mean Corpuscular Hgb 29.7 pg (27.0-32.0); Mean Corpuscular Volume 95.6 fL (81-99); Mean Platelet Vol. 8.8 fl (6.2-12.0); Monocyte# 0.54 X10^3/uL; Monocyte% 5.5 % (0-10); NRBC Flagged by Analyzer 0 % (0-5); Neutrophil # 8.17 X10^3/uL (2.7-7.7); Neutrophil % 83.1 % (47-70); Platelet Count 169 K/mm3 (150-450); RBC Distribution Width CV 13.8 % (11.6-14.6); RBC Distribution Width SD 47.8 fl (35.1-43.9); Red Blood Count 3.44 M/mm3 (4.2-5.4); White Blood Count 9.8 K/mm3 (4.4-11.0)
[2024-08-20 14:41] LABS: Color, Urine Yellow (Yellow); Glucose, Dipstick Normal (Normal); Ketone-Dipstick Negative (Negative); Leukocyte Esterase-Dipstick Negative /ul (Negative); Nitrite-Dipstick Negative (Negative); Occult Blood-Urine 50 /ul (Negative); Protein-Dipstick 15 mg/dl (Negative); Urine Bilirubin Dipstick Negative (Negative); Urine Clarity Clear (Clear); Urine Urobilinogen 1 mg/dl (Normal)
[2024-08-20 14:50] LABS: Anion Gap 5 (5-15); BUN 23 mg/dL (7-18); BUN/Creat Ratio 17.7 RATIO (10-20); Calcium,Total 8.1 mg/dL (8.5-10.1); Chloride 106 mmol/L (98-107); EST Glomerular Filtration Rate 42 mL/min (>60); Est Glom Filt Rate - Afr Amer 51 mL/min (>60); Estimated Creatinine Clearance 36.85 ml/min; Glucose 159 mg/dL (74-106); Potassium 4.7 mmol/L (3.5-5.1); Sodium Level 139 mmol/L (136-145)
[2024-08-20 14:56] LABS: Bacteria 1+ /hpf (None Seen); Red Blood Cells-Urine 0-5 SEEN /hpf (0-5); Renal Epithelial Cells 0-5 SEEN /hpf (0-5); Squamous Epithelial Cells - UA 0-5 SEEN /hpf (5-10)
[2024-08-20 17:49] LABS: Prothrombin Time (Protime)PT. 52.4 SECONDS (11.7-14.9)
[2024-08-20] MEDS: Acetaminophen 325 MG Tablet 650 MG PO (17:52)
[2024-08-20] MEDS: oxyCODONE 5 MG Tablet PO (17:52)
[2024-08-20 17:58] LABS: International Normalized Ratio 5.9
== END 2024-08-20 21:29 | disposition home or self-care (01) ==
PROVIDERS: Emergency Provider Emergency Medicine; PCP Family Medicine; Visit Provider Emergency Medicine
DX: S70.01XA Contusion of right hip, initial encounter (principal); I48.0 Paroxysmal atrial fibrillation; E11.9 Type 2 diabetes mellitus without complications; R33.9 Retention of urine, unspecified; E78.5 Hyperlipidemia, unspecified; R79.1 Abnormal coagulation profile; I10 Essential (primary) hypertension; Z99.89 Dependence on other enabling machines and devices; G47.33 Obstructive sleep apnea (adult) (pediatric); W19.XXXA Unspecified fall, initial encounter; Z85.3 Personal history of malignant neoplasm of breast; Z79.899 Other long term (current) drug therapy; Z79.01 Long term (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 of anticoagulants; Z90.710 Acquired absence of both cervix and uterus; Z96.659 Presence of unspecified artificial knee joint
CPT/HCPCS: 51702; 70450; 72125; 73502; 80048; 81001; 85025; 85610; 96360; 99284; J7030; A4216

== ENCOUNTER 2024-08-31 12:58 | Outpatient (RCR) | payer MEDICARE, SELFPAY ==
[2019-09-15 09:55] VITALS: BMI 42.3
[2024-08-01 20:57] VITALS: BMI 43.7
[2024-08-31 13:06] LABS: INR Fingerstick 2.4; Prothrombin Time Fingerstick 24.3 SEC (11.7-14.9)
== END 2024-08-31 18:00 | disposition home or self-care (01) ==
LOC: MTLAB 12:58
PROVIDERS: Family Provider Family Medicine; PCP Family Medicine; Referring Provider Internal Medicine Cardiovascular Disease; Visit Provider Internal Medicine Cardiovascular Disease
DX: I48.0 Paroxysmal atrial fibrillation (principal); Z79.01 Long term (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 of anticoagulants
CPT/HCPCS: 36416; 85610

== ENCOUNTER → 2024-10-15 | Outpatient (CLI) | payer MEDICARE, SELFPAY ==
[2019-09-15 09:55] VITALS: BMI 42.3
--- NOTE | 2024-10-15 14:10 | BI_ITS ---
MAMMOGRAPHY - BILATERAL SCREENING REASON FOR EXAM: Female, 79 years old. Routine annual screening examination. PERTINENT HISTORY: Personal history of breast cancer. Prior right lumpectomy. TECHNIQUE: Digital bilateral breast doc (3D mammographic acquisition) in the CC and MLO projections. 2-D mediolateral oblique (MLO) and craniocaudad (CC) views of both breasts were obtained. CAD: Full Field Digital Mammography with Computer Added Detection was performed. COMPARISON: Comparison is made with prior study August 22, 2023 and June 13, 2022. FINDINGS: Breast Composition: There are scattered areas of fibroglandular density. There are no dominant masses or suspicious calcifications. Stable architectural distortion in the upper lateral aspect of the right breast into with prior right lumpectomy. Skin thickening. No other significant abnormalities are identified. There has been no significant change since the prior study. BI/SCRN MAMM (CAD)W/DOC BILAT IMPRESSION: Stable bilateral screening mammogram. Yearly follow-up mammogram recommended. (A) ASSESSMENT CATEGORY: BIRADS Category 2: Benign. A letter regarding these results will be sent to the patient by the facility within 30 days. Approximately 10% of breast cancers are not detected by mammography. A normal mammogram should not delay biopsy of a clinically suspicious abnormality. [id number] Electronically Signed: Forrest Rodriguez MD at 15:43 EST ,
--- NOTE | 2024-10-15 14:10 | BD_ITS ---
STUDY: DUAL ENERGY X-RAY ABSORPTIOMETRY / DXA REASON FOR EXAM: Female, 79 years old. SCREENING TECHNIQUE: Bone Mineral Density (BMD) measurements of lumbar spine and bilateral hips were obtained. COMPARISON: Comparison is made with prior study August 21, 2022. FINDINGS: Lumbar Spine (L1-L4): g/cm2 (1.164) / T-score (1.3) / Z-score (4.0) Findings are suggestive of normal bone density with a low fracture risk. Left Femur Total: g/cm2 (0.788) / T-score (-1.3) / Z-score (0.9) Left Femoral Neck: g/cm2 (0.550) / T-score (-2.7) / Z-score (-0.3) Right Femur Total: g/cm2 (0.768) / T-score (-1.4) / Z-score (0.7) Right Femoral Neck: g/cm2 (0.596) / T-score (-2.3) / Z-score (0.1) The T-Scores on the most recent prior examination were: Lumbar Spine (L1-L4): There has been improvement of bone density since the previous examination. Left Femur Total: which represents an improvement of 0.3%. Right Femur Total: which represents an improvement of 8%. BD/Dexa Bone Density Study IMPRESSION: The patient is considered osteoporotic as outlined below according to World Junior Organization (WHO) criteria with a high fracture risk. There has been improvement of bone density since the previous examination. Reference Information: The T-score is the number of standard deviations above or below the standard which is normal for young adults at their peak bone mineral density. The World Health Organization (WHO) interprets the T-scores as follows: Above -1 Normal bone density Between -1 and -2.5 Osteopenia Equal to / or below -2.5 Osteoporosis As a practical clinical guideline, osteopenia may be graded as follows: Mild -1 through -1.5 Moderate -1.6 through -2.0 Severe -2.1 through -2.4 The Z-score is the number of standard deviations above or below age-matched controls. A Z-score of less than -1.5 would be considered abnormal. References: 1. NIH Osteoporosis and Related Bone Diseases www osteo.org 2. International Society for Clinical Densitometry www iscd.org 3. National Osteoporosis Foundation www nof.org Electronically Signed: Forrest Rodriguez MD at 15:23 EST ,
== END | disposition home or self-care (01) ==
LOC: OPBD 14:10
PROVIDERS: PCP Family Medicine; Referring Provider Internal Medicine Medical Oncology; Visit Provider Internal Medicine Medical Oncology
DX: Z12.31 Encounter for screening mammogram for malignant neoplasm of breast (principal); Z85.3 Personal history of malignant neoplasm of breast; Z78.0 Asymptomatic menopausal state
CPT/HCPCS: 77063; 77067; 77080

== ENCOUNTER → 2024-10-20 | Outpatient (CLI) | payer MEDICARE, SELFPAY ==
[2019-09-15 09:55] VITALS: BMI 42.3
[2024-10-20 11:32] LABS: Absolute Lymphocyte Count 2.12 X10^3/uL (0.83-4.51); Absolute Neutrophil Count 3.3 X10^3/uL (2.0-7.7); Basophil# 0.03 X10^3/uL; Basophil% 0.5 % (0-1); Eosinophil# 0.22 X10^3/uL; Eosinophils% 3.6 % (0-5); Hematocrit 35.5 % (37-47); Hemoglobin 11.2 g/dL (12.0-15.0); Lymphocyte # 2.12 X10^3/ul (0.83-4.51); Lymphocyte % 34.5 % (19-41); Mean Corp Hgb Conc 31.5 g/dL (32-36); Mean Corpuscular Hgb 30.5 pg (27.0-32.0); Mean Corpuscular Volume 96.7 fL (81-99); Mean Platelet Vol. 8.8 fl (6.2-12.0); Monocyte# 0.42 X10^3/uL; Monocyte% 6.8 % (0-10); NRBC Flagged by Analyzer 0 % (0-5); Neutrophil # 3.34 X10^3/uL (2.7-7.7); Neutrophil % 54.4 % (47-70); Platelet Count 199 K/mm3 (150-450); RBC Distribution Width SD 49.6 fl (35.1-43.9); Red Blood Count 3.67 M/mm3 (4.2-5.4); White Blood Count 6.1 K/mm3 (4.4-11.0)
[2024-10-20 11:57] LABS: AST(SGOT) 21 U/L (15-37); Alanine Aminotransfer ALT/SGPT 18 U/L (13-56); Albumin, Serum 3.5 g/dL (3.2-5.0); Alkaline Phosphatase 38 U/L (45-117); Bilirubin, Direct 0.15 mg/dL (0.00-0.30); Cholesterol 141 mg/dL (200); Globulin 2.9 g/dL (2.2-4.2); High Density Lipoprotein 56 mg/dL; Protein, Total 6.4 g/dL (6.4-8.2); Triglycerides 110 mg/dL; Very Low Density Lipoprotein 22 mg/dL (5-40)
== END | disposition home or self-care (01) ==
LOC: LAB 11:10
PROVIDERS: PCP Family Medicine; Referring Provider Nurse Practitioner Gerontology; Visit Provider Nurse Practitioner Gerontology
DX: E78.5 Hyperlipidemia, unspecified (principal); R53.83 Other fatigue
CPT/HCPCS: 36415; 80061; 80076; 85025

== ENCOUNTER 2024-10-26 16:07 | Outpatient (RCR) | payer MEDICARE, SELFPAY ==
[2019-09-15 09:55] VITALS: BMI 42.3
[2024-09-01 04:47] VITALS: BMI 43.7
[2024-10-20 10:12] LABS: INR Fingerstick 1.6; Prothrombin Time Fingerstick 18.6 SEC (11.7-14.9)
== END 2024-10-31 18:00 | disposition home or self-care (01) ==
LOC: MTLAB 16:07
PROVIDERS: Family Provider Family Medicine; PCP Family Medicine; Referring Provider Internal Medicine Cardiovascular Disease; Visit Provider Internal Medicine Cardiovascular Disease
DX: I48.0 Paroxysmal atrial fibrillation (principal); Z79.01 Long term (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 of anticoagulants; I48.92 Unspecified atrial flutter
CPT/HCPCS: 36416; 85610

== ENCOUNTER 2025-02-24 15:53 | Outpatient (RCR) | payer MEDICARE, SELFPAY ==
[2019-09-15 09:55] VITALS: BMI 42.3
[2024-11-01 02:03] VITALS: BMI 43.7
[2025-02-24 16:04] LABS: INR Fingerstick 2.3; Prothrombin Time Fingerstick 25.3 SEC (11.7-14.9)
== END 2025-02-24 18:00 | disposition home or self-care (01) ==
LOC: MTLAB 15:53
PROVIDERS: Family Provider Family Medicine; PCP Family Medicine; Referring Provider Internal Medicine Cardiovascular Disease; Visit Provider Internal Medicine Cardiovascular Disease
DX: I48.0 Paroxysmal atrial fibrillation (principal); I48.92 Unspecified atrial flutter; Z79.01 Long term (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 of anticoagulants
CPT/HCPCS: 36416; 85610

== ENCOUNTER → 2025-03-26 | Outpatient (CLI) | payer MEDICARE, SELFPAY ==
[2019-09-15 09:55] VITALS: BMI 42.3
--- NOTE | 2025-03-26 13:53 | ECHOD_ITS ---
Reason For Study Reason For Study: MURMUR Procedure This was a 2D Doppler, Color Flow transthoracic echocardiogram. Myocardial strain analysis was performed in this exam to aid in the assessment of cardiac function. Exam performed in department. Left Ventricle Normal LV size. Left ventricular systolic function is normal. The left ventricular ejection fraction is 60 %. No regional wall motion abnormalities noted. Right Ventricle Normal RV size. Normal systolic function. Atria Normal left atrium. Normal right atrium. Mitral Valve Bileaflet diffuse mitral valve thickening. There is mild mitral annular calcification. Mild (1+) eccentric mitral valve insufficiency. Tricuspid Valve Normal tricuspid valve. Aortic Valve Trisinus/trileaflet aortic valve. Mild focal aortic valve calcification. Mild (1+) aortic valve insufficiency. Pulmonic Valve Normal pulmonic valve. Great Vessels Mild to moderately dilated aortic root. The pulmonary artery is normal size. Inferior vena cava collapse with respiration. Pericardium/Pleural No pericardial effusion. MMode/2D Measurements & Calculations LVIDd: 4.1 cm IVSd: 1.4 cm LVOT diam: 2.0 cm LVIDs: 2.2 cm LVPWd: 1.1 cm LVOT area: 3.1 cm2 FS: 45.6 % Ao root diam: 3.6 cm LAV(MOD-bp): 35.7 ml LVAd ap4: 22.8 cm2 LAV(MOD-bp) Indexed: 19.6 ml/m2 LVLd ap4: 7.3 cm LAV(MOD-sp2): 37.3 ml EDV(MOD-sp4): 59.4 ml LAV(MOD-sp4): 33.6 ml EDV(sp4-el): 60.2 ml LVAs ap4: 12.4 cm2 LVLs ap4: 5.7 cm ESV(MOD-sp4): 22.0 ml ESV(sp4-el): 23.0 ml EF(MOD-sp4): 63.0 % EF(sp4-el): 61.8 % SV(MOD-sp4): 37.4 ml SV(sp4-el): 37.2 ml LA A4 area: 14.2 cm2 SI(MOD-sp4): 20.6 ml/m2 LA dimension(2D): 3.1 cm RA A4 area: 13.6 cm2 Time Measurements MV dec time: 0.23 sec Doppler Measurements & Calculations MV E max steve: 78.1 cm/sec Lat Peak E' Steve: 9.1 cm/sec Med Peak E' Steve: 8.7 cm/sec MV A max steve: 106.9 cm/sec E/E' lat: 8.5 E/E' med: 9.0 MV E/A: 0.73 MV V2 max: 117.4 cm/sec Ao V2 max: 221.7 cm/sec MV max P.5 mmHg MV dec slope: 340.9 cm/sec2 Ao max P.7 mmHg MV V2 mean: 67.9 cm/sec Ao V2 mean: 167.7 cm/sec MV mean P.2 mmHg Ao mean P.4 mmHg MV V2 VTI: 44.0 cm Ao V2 VTI: 51.2 cm AV (velocity ratio): 0.69 MVA(VTI): 2.5 cm2 COLEMAN(I,D): 2.2 cm2 COLEMAN(V,D): 2.0 cm2 AI max steve: 457.5 cm/sec LV V1 max: 140.3 cm/sec SV(LVOT): 110.3 ml AI max P.8 mmHg LV V1 max P.9 mmHg LV V1 mean P.4 mmHg AI dec slope: 270.7 cm/sec2 LV V1 mean: 112.3 cm/sec AI P1/2t: 495.0 msec LV V1 VTI: 35.4 cm ECHO/Echo Complete Interpretation Summary Normal LV size. Left ventricular systolic function is normal. The left ventricular ejection fraction is 60 %. Mild to moderately dilated aortic root. The global longitudinal strain is normal. The global longitudinal strain = -18. 8 % (normal). Ordering Physician: Juni Epstein Referring Physician: Juni Epstein Performed By: Karma Shukla RCS
== END | disposition home or self-care (01) ==
LOC: CVS 13:48
PROVIDERS: PCP Family Medicine; Referring Provider Internal Medicine Cardiovascular Disease; Visit Provider Internal Medicine Cardiovascular Disease
DX: I35.1 Nonrheumatic aortic (valve) insufficiency (principal); I48.0 Paroxysmal atrial fibrillation; I48.92 Unspecified atrial flutter; R01.1 Cardiac murmur, unspecified
CPT/HCPCS: 93306

== ENCOUNTER 2025-04-06 10:30 | Outpatient (RCR) | payer MEDICARE, SELFPAY ==
[2019-09-15 09:55] VITALS: BMI 42.3
--- NOTE | 2025-03-05 16:32 | HP.PTEVAL ---
Patient's Visit Information Visit Information Visit Information: CHARLIE ULLOA is a 79 year old F referred to Physical Therapy by Dr. Myles Lai MD with a diagnosis of LUMBAR DDD WITH IMPINGEMENT RIGHT L5. Date of Evaluation: 03/05/25 Physical Therapist: Murray Quintana, PT, Cert MDT, OCS Visit Plan Frequency: 2x /Week Duration: 4 Weeks Plan: PT INTERVENTIONS DLS ,POSTURAL EX'S ,LE FLEXABILITY ,BLE STRENGTHENING ,ACTIVITY MODIFICATION AND MODALITIES PRN Subjective Subjective: ThIS 79 y/o female presents to physical therapy with lumbar radiculopathy RLE . Patient has had lumbar radiculopathy many years with patient having lumbar fusion 22 years ago. Symptoms progressively worse with past [address] Christensen stated not candidate for surgery. Seen DR Lai recommended PT and oxycodone ,gabapentin Patient has seen Dr Heath 2 years ago. Patient recommended pain management to see DR Sevilla. Patient had x-rays showed Moderate rotatory thoracolumbar scoliosis unchanged,11 mm of anterolisthesis of L4 on L3, unchanged. 6 mm of anterolisthesis of L4 on L5, unchanged Posterior fusion at L4-5, unchanged. MRI showed HNP and stenosis. . Bone Density high risk for fracture ,osteoporosis . Patient pain located right lumbar with radicular symptoms right lateral leg. Aggravating factors walking and standing <10mins ,bending unable, lifting . Alleviating sitting ,resting. Coughing/sneezing-. Bowel/bladder-. C/O paresthesia/tingling -.Patient sleeping good. Patient has limitations with ADLS and housework due to limitations with standing and walking. Patient goals to decrease pain. SOCAIL:Lives with daughter Pain Right Back: Pain Intensity (Out of 10): 6 Pain Intensity Range: 10 Right Lower Extremity: Pain Intensity (Out of 10): 0 Pain Intensity Range: 10 Objective Objective: POSTURE: mild forward posture hips/knees flexed GAIT: reciprocal pattern with 2 point gait antalgic gait with quad cane ( has rollator as needed ) PALPATION: render right SI /LS NEURO: denies paresthesia/tingling, reflexes L3-4 ,L4-5,L5- S1 1/3 LUMBAR ROM: flexion mod loss ,extension severe loss.side glides mod loss MMT: quads/hams 4/5 ,ankle 4-/5 ,ankle 4/5 FLEXABILITY: hamstrings mod tight Special Tests L/S Slump test left side: Negative L/S Slump test right side: Negative L/S Left Straight Leg Raise: Negative L/S Right Straight Leg Raise: Negative Balance/Special Test Scores Oswestry Low Back Score: 26 Goals Goal 1:: Patient to be I with HEP for back Goal Time Frame: 4-6 Weeks Goal 2:: Patient to improve lumbar ROM for function of recovery to put on shoes Goal Time Frame: 4-6 Weeks Goal 3:: Patient to improve back oswestry score by 5 points to improve QOL and function Goal Time Frame: 4-6 Weeks Goal 4:: Patient to ambulate further distances with less pain and improvement ADLS by 50% Goal Time Frame: 4-6 Weeks Goal 5:: Patient to demonstrate 50% improvement with less pain and function Goal Time Frame: 4-6 Weeks Rehabilitation Potential Physical Therapy Diagnosis: This patient lumbar radiculopathy with h/o lumbar fusion 23 years ago now has stenosis and 11 mm anterolisthesis with pain with positioning and motion testing worse with standing and walking impairs ADLS and walking and needs device along with weakness in legs thus benefit from skilled PT Rehabilitation Potential: Good Anticipated Interventions Patient/Client Instruction: Educate patient on: Condition and Plan of Care For the Purpose of:: To decrease pain, To increase ROM, To improve muscle performance and motor function, To improve ability to perform ADL's, To increase tolerance to activity/condition/position, To improve ability of physical actions for home/community/work/leisure, To improve health of tissue, To decrease soft tissue restriction, To increase flexibility/ROM and To improve tolerance to ADL's Therapeutic Exercise to Include: Strength training, Body mechanics, Postural training, Flexibilty training, Dynamic Lumbar Stabilization and Joey Exercises For the Purpose of:: To decrease pain, To increase ROM, To improve muscle performance and motor function, To improve ability to perform ADL's, To increase tolerance to activity/condition/position, To improve ability of physical actions for home/community/work/leisure, To improve health of tissue, To decrease soft tissue restriction and To increase flexibility/ROM TENS: Yes IF ES: Yes Cryotherapy (ice pack, ice massage): Yes Thermo therapy (hot pack): Yes Ultrasound (thermal/non thermal): Yes For the Purpose of:: To decrease pain, To increase ROM, To improve nutrient delivery to tissue, To increase oxygenation perfusion, To improve health of tissue and To decrease soft tissue restriction Text: Thank you for the opportunity to evaluate your patient. For Medicare and Medicare HMO plans, please review the plan of care and approve it. It will need to be FAXED BACK to us at [phone] for Medicare purposes. For Medicare only, by signing this I certify the plan of care. Please let me know if there are questions or concerns regarding this plan of care. Physician Signature: Date:
--- NOTE | 2025-04-06 10:46 | HP.PTDCSUM ---
Discharge Summary D/C summary: It has been my pleasure to treat CHARLIE ULLOA referred by Dr. Myles Lai MD, with the diagnosis of LUMBAR DDD WITH IMPINGEMENT RIGHT L5 for a total of 9 visit(s). Discharge Date: 04/06/25 Please see the following information for a summary of their discharge status. Subjective Subjective: Patient states happy with progress Ready with d/c Pain Right Back: Pain Intensity (Out of 10): 2 Right Lower Extremity: Pain Intensity (Out of 10): 2 Overall Improvement % Improvement: 90 Objective Objective/Function: POSTURE: mild forward posture hips/knees flexed GAIT: reciprocal pattern with 2 point gait antalgic gait with quad cane (dont use cane at home) PALPATION: render right SI /LS NEURO: denies paresthesia/tingling, reflexes L3-4 ,L4-5,L5- S1 1/3 LUMBAR ROM: flexion mod loss ,extension severe loss.side glides mod loss MMT: quads/hams 4/5 ,ankle 4-/5 ,ankle 4/5 FLEXABILITY: hamstrings mod tight Goals Goal 1:: Patient to be I with HEP for back Goal Progress: Goal Met Goal 2:: Patient to improve lumbar ROM for function of recovery to put on shoes Goal Progress: Goal Met Goal 3:: Patient to improve back oswestry score by 5 points to improve QOL and function Goal Progress: Goal Met Goal 4:: Patient to ambulate further distances with less pain and improvement ADLS by 50% Goal 5:: Patient to demonstrate 50% improvement with less pain and function Goal Progress: Goal Met Plan Plan: D/C TO HEP D/C Information Discharge Comments: d/c home ex's d/c sentence: If there are questions or concerns regarding this patient's physical therapy, please feel free to call me at [phone]. Thank you for the referral of this patient. Sincerely, Murray Quintana, PT, Cert MDT, OCS Balance/Gait/Functional tests Balance/Special Test Scores Oswestry Low Back Score: 13 Improvement % Improvement: 90
== END 2025-04-06 19:00 | disposition home or self-care (01) ==
LOC: PT 10:30
PROVIDERS: PCP Family Medicine; Referring Provider Family Medicine; Visit Provider Family Medicine
DX: M51.369 Other intervertebral disc degeneration, lumbar region without mention of lumbar back pain or lower extremity pain (principal)
CPT/HCPCS: 97110; 97162; 97530

== ENCOUNTER 2025-05-01 14:30 | Emergency (ER) | payer MEDICARE, SELFPAY ==
[2019-09-15 09:55] VITALS: BMI 42.3
[2025-05-01 14:31] VITALS: BP 123/76; PULSE 78; RESP 18; TEMP 36.9; O2SAT 96; BMI 40.3
--- NOTE | 2025-05-01 14:55 | RAD_ITS ---
EXAM: XR Chest, 2 Views CLINICAL INDICATION: CHEST PAIN TECHNIQUE: Frontal and lateral views of the chest. COMPARISON: No relevant prior studies available. FINDINGS: LUNGS AND PLEURAL SPACES: Unremarkable. No consolidation. No pneumothorax. HEART: Unremarkable. No cardiomegaly. MEDIASTINUM: Unremarkable. Normal mediastinal contour. BONES/JOINTS: Unremarkable. No acute fracture. RAD/Chest PA and Lateral IMPRESSION: No acute cardiopulmonary process. Reading Location: [id number]
--- NOTE | 2025-05-01 15:04 | EX.ED.DYSGE1 ---
HPI <JOSHUA Francis - Last Filed: 05/01/25 19:25> History of Present Illness Chief Complaint: General Illness Narrative Narrative: 79-year-old female with PMH of HTN, HLD, A-fib, TERRY states she woke up last night and felt her heart racing. She put on her pulse oximeter and her heart rate varied between 130 to 150 bpm. She has associated chest pressure and a headache. It lasted about 2 hours and then she went to sleep and when she woke up around 9 AM she is just felt fatigued and generally unwell and still has a headache. No further palpitations. She also has urinary urgency that started this morning. She had an ablation for A-fib in 2010. She follows now with the [facility] and is on metoprolol and Coumadin. PFSH <JOSHUA Francis - Last Filed: 05/01/25 19:25> [facility] Medical History Wears glasses Post-menopausal Cancer Depression History of steroid therapy Arthritis Loss of consciousness History of IBS Non-smoker CPAP (continuous positive airway pressure) dependence Sleep apnea Shortness of breath on exertion Chronic cough History of echocardiogram History of stress test Hypertension History of irregular heartbeat Cardiology follow-up encounter History of atrial fibrillation History of trigger finger Osteoporosis Sleep apnea with use of continuous positive airway pressure (CPAP) Cataract, left eye Irritable bowel Wrist fracture, left Lung nodule, multiple Encounter for education Breast cancer, right breast Malignant neoplasm of central portion of right female breast Paroxysmal atrial flutter Spinal stenosis 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 Paroxysmal atrial fibrillation Obesity Type 2 diabetes mellitus Home Medications ?Medication ?Instructions ?Recorded ?Last Taken ?Type qgmiqliw-[id number] 8 mg-folic 400 1 ea PO DAILY supplement 03/02/17 05/01/25 History mcg-K 50 mcg-lutein 300 mcg tablet gabapentin 300 mg capsule 300 mg PO BID pain 30 days #90 caps 12/24/18 05/01/25 History coenzyme Q10 100 mg capsule 100 mg PO DAILY 08/09/21 05/01/25 History (Q-Sorb Co Q-10) melatonin 3 mg tablet 10 mg PO QHS sleep 02/07/22 04/30/25 History acetaminophen 500 mg tablet 1,000 mg PO ONCE 11/09/22 05/01/25 History calcium carbonate (Calcium 600) 600 mg PO BID 11/09/22 05/01/25 History cholecalciferol (vitamin D3) 50 50 mcg PO BID 11/09/22 05/01/25 History mcg (2,000 unit) capsule pyridoxine (vitamin B6) 100 mg 100 mg PO DAILY supplement 11/09/22 05/01/25 History tablet tamoxifen 20 mg tablet 20 mg PO DAILY #90 TABLETS 09/14/24 04/30/25 Rx escitalopram oxalate 10 mg tablet 10 mg PO QDAY 02/26/25 05/01/25 History warfarin 3 mg tablet 3 mg PO .COMPLEX #90 TABLETS 03/08/25 04/30/25 Rx furosemide 40 mg tablet 40 mg PO DAILY #90 tabs 03/10/25 05/01/25 Rx metoprolol succinate 25 mg 25 mg PO .COMPLEX afib #180 tabs 03/15/25 04/30/25 Rx tablet,extended release 24 hr atorvastatin 10 mg tablet 10 mg PO DAILY #90 tabs 03/22/25 05/01/25 Rx losartan 100 mg tablet 100 mg PO DAILY #90 tabs 03/22/25 05/01/25 Rx Allergy/AdvReac Type Severity Reaction Status Date / Time No Known Allergies Allergy Verified 05/01/25 14:31 Family History Sister CVA (cerebral vascular accident) Father CAD (coronary artery disease) Hypertension Mother Hypertension CAD (coronary artery disease) Surgical History Hx of cataract extraction Status post right breast lumpectomy S/P right breast biopsy (03/05/19) S/P shoulder surgery H/O dilation and curettage H/O hand surgery S/P carpal tunnel release h/o breast lumpectomy H/O: hysterectomy H/O total knee replacement History of tonsillectomy History of back surgery History of radiofrequency ablation procedure for cardiac arrhythmia (03/20/11) History of gastric bypass Social History Smoking Status: Never smoker Electronic Cigarette Use: not used second hand exposure: Yes (Childhood ) alcohol intake: current alcohol intake frequency: holidays/special occasions only Alcohol type: wine substance use type: does not use additional social history: ROS <JOSHUA Francis - Last Filed: 05/01/25 19:25> ROS ED ROS Narrative Constitutional: Positive for malaise. Negative for fever, chills. CVS: Positive for palpitations, chest pain. Negative for syncope. Respiratory: Negative for shortness of breath, cough, orthopnea. GI: Negative for abdominal pain, nausea, vomiting. EXAM <JOSHUA Francis - Last Filed: 05/01/25 19:25> Physical Exam Narrative Exam Narrative: CONST: Patient sitting in no acute distress. EYES: Normal inspection. ENT: Normal inspection, moist mucous membranes. NECK: Normal inspection. RESP: No respiratory distress, CTAB. CVS: Regular rate and rhythm, no murmur, no gallop. ABD: Soft and nontender, no guarding or rebound, nondistended. SKIN: Color normal, no rash, warm, dry, intact. EXTREMITIES: Normal appearance, no pedal edema. NEURO: Alert and answering questions appropriately. PSYCH: Normal affect. Const Vital Signs: 05/01/25 14:31 05/01/25 14:58 05/01/25 16:27 Temperature 98.5 F Temperature Source Oral Pulse Rate 78 64 Respiratory Rate 18 Respiratory Effort Normal Non-Labored Blood Pressure 123/76 H 122/68 H Blood Pressure Mean 91 86 Pulse Ox 96 94 Oxygen Delivery Method Room Air Room Air 05/01/25 18:00 05/01/25 18:09 Temperature 98.5 F Temperature Source Pulse Rate 66 64 Respiratory Rate 16 Respiratory Effort Blood Pressure 138/76 H 138/76 H Blood Pressure Mean 96 96 Pulse Ox 96 Oxygen Delivery Method <Dr. Brian Rivers MD - Last Filed: 05/01/25 20:17> Physical Exam Const Vital Signs: 05/01/25 14:31 05/01/25 14:58 05/01/25 16:27 Temperature 98.5 F Temperature Source Oral Pulse Rate 78 64 Respiratory Rate 18 Respiratory Effort Normal Non-Labored Blood Pressure 123/76 H 122/68 H Blood Pressure Mean 91 86 Pulse Ox 96 94 Oxygen Delivery Method Room Air Room Air 05/01/25 18:00 05/01/25 18:09 Temperature 98.5 F Temperature Source Pulse Rate 66 64 Respiratory Rate 16 Respiratory Effort Blood Pressure 138/76 H 138/76 H Blood Pressure Mean 96 96 Pulse Ox 96 Oxygen Delivery Method [facility] <JOSHUA Francis - Last Filed: 05/01/25 19:25> [facility] Narrative Medical decision making narrative: History gathered from: Patient and her [id number] Differential includes but not limited to A-fib, arrhythmia, ACS, UTI 79-year-old female had chest pressure and palpitations last evening and this morning has generalized weakness and malaise. She has a history of paroxysmal A-fib and is on metoprolol and Coumadin. She appears well and nontoxic. Vital stable. She is in normal sinus rhythm at 78 bpm. Overall her exam is unremarkable. White count is normal at 5.4. Stable baseline anemia 11.1. Stable baseline chronic kidney disease with BUN of 16, creatinine 1.26. Electrolytes are normal. Glucose 125. EKG nonischemic and serial troponins are 15 and 17 ruling out ACS. INR is therapeutic at 2.5. Urinalysis is contaminated and was sent for culture. It is possible she had an episode of paroxysmal A-fib last night but here her workup has been unrevealing. She has no focal weakness and is able to ambulate and is comfortable going home. She lives in an in-law suite with her son and [id number] who will keep an eye on her. Return precautions discussed and she was discharged in stable condition. I have personally performed a face to face assessment of the patient and have reviewed the OSITO Note. I performed a substantive portion of the visit including all aspects of the following. My medina findings include: History is remarkable for patient awakening from sleep because of rapid heart rate with a rate varying between 130 and 150. She does have a history of atrial fibrillation status post ablation. She is on Coumadin. Her level has not been checked for the past month. She states she had discomfort in her chest along with the rapid heart rate. There is no radiation of the discomfort. She did feel slightly nauseous. She denied diaphoresis. She did have slight shortness of breath. Pulse ox varied between 88 and 92%. She was not wearing her CPAP machine when this occurred because she felt more short of breath. She states this episode lasted approximately 2 hours. She denied epigastric pain. She denies black or maroon-colored stool. She states she has no energy. Daughter got her lunch. She states she complained of nausea and did not eat much. Patient does endorse increased urination. Denies dysuria, urgency or hematuria. She denies central low back pain or flank pain. She denies bruising easily. Exam is pleasant 79-year-old woman. Vital signs unremarkable. HEENT exam is unremarkable. Conjunctive is pink. Trachea is midline. There is no JVD. There is no carotid bruits. Lungs are clear to auscultation. Heart rate is regular. There is no murmur, gallop or rub. Rate is normal. Monitor reveals a narrow complex sinus rhythm rate of approximately 75-80. There was no ectopy noted on the monitor. There is no reproducible chest pain. Abdomen is soft nontender. No palp pulsatile mass or abdominal bruit. Lower extremity exam reveals no swelling, discoloration leg vein distention. She has no tenderness along distribution deep venous system or palpable cords. There is no pitting edema. Patient repeated multiple times she does not feel well and has no energy. Medical Decision Making this patient is 83 years of age and episode of fast heart rate with drop in pulse ox need to consider cardiac ischemia. She is on anticoagulant which would make PE less likely. With her complaint of frequency she may have a urinary tract infection which is stomach symptoms. Workup included EKG, appropriate blood work to evaluate for cardiac versus noncardiac chest discomfort and UA. Other additions or changes: [None] Lab Data Labs: Laboratory Results - last 24 hr 05/01/25 05/01/25 05/01/25 15:00 15:12 16:55 WBC 5.4 RBC 3.60 L Hgb 11.1 L Hct 34.8 L MCV 96.7 MCH 30.8 MCHC 31.9 L RDW Std Deviation 48.2 H RDW Coeff of Bashir 13.5 Plt Count 210 MPV 9.4 Immature Gran % (Auto) 0.200 Neut % (Auto) 57.2 Lymph % (Auto) 32.8 [place]enton % (Auto) 6.7 Eos % (Auto) 2.4 Baso % (Auto) 0.7 Absolute Neuts (auto) 3.1 Absolute Lymphs (auto) 1.77 Nucleated RBC % 0 PT 27.5 H INR 2.5 Sodium 142 Potassium 4.4 Chloride 107 Carbon Dioxide 25.0 Anion Gap 10 BUN 16 Creatinine 1.26 H Estim Creat Clear Calc 34.45 L Est GFR (MDRD) Non-Af 43 L BUN/Creatinine Ratio 12.9 Glucose 125 H Calcium 8.9 Troponin T High Sens 15 H Troponin T Hi Sens 2 Hr 17 H Urine Color Straw Urine Clarity Sl. Cloudy Urine pH 5.0 Ur Specific [place] 1.015 Urine Protein 30 H Urine Glucose (UA) Normal Urine Ketones Negative Urine Occult Blood 10 H Urine Nitrite Negative Urine Bilirubin Negative Urine Urobilinogen Normal Ur Leukocyte Esterase 500 H Urine RBC 0-5 SEEN Urine WBC 10-25 SEEN Ur Squamous Epith Cells 10-25 SEEN Ur Transition Epith Cell 0-5 SEEN Urine Bacteria 0 SEEN Urine Mucus 0 SEEN Radiography Diagnostic Testing: Clinical Impression(s) from Imaging Studies Chest X-Ray 05/01/25 14:55 IMPRESSION: No acute cardiopulmonary process. Reading Location: [facility] ED attending interpretation of 2 view chest x-ray shows normal heart size, no acute infiltrate. EKG Initial EKG: Interpretation: No Acute Injury Pattern Comments: Normal sinus rhythm at 70 bpm, no ischemic changes <Dr. Brian Rivers MD - Last Filed: 05/01/25 20:17> [facility] MDM Narrative Medical decision making narrative: I have personally performed a face to face assessment of the patient and have reviewed the OSITO Note. I performed a substantive portion of the visit including all aspects of the following. My medina findings include: History is remarkable for patient awakening from sleep because of rapid heart rate with a rate varying between 130 and 150. She does have a history of atrial fibrillation status post ablation. She is on Coumadin. Her level has not been checked for the past month. She states she had discomfort in her chest along with the rapid heart rate. There is no radiation of the discomfort. She did feel slightly nauseous. She denied diaphoresis. She did have slight shortness of breath. Pulse ox varied between 88 and 92%. She was not wearing her CPAP machine when this occurred because she felt more short of breath. She states this episode lasted approximately 2 hours. She denied epigastric pain. She denies black or maroon-colored stool. She states she has no energy. Daughter got her lunch. She states she complained of nausea and did not eat much. Patient does endorse increased urination. Denies dysuria, urgency or hematuria. She denies central low back pain or flank pain. She denies bruising easily. Exam is pleasant 79-year-old woman. Vital signs unremarkable. HEENT exam is unremarkable. Conjunctive is pink. Trachea is midline. There is no JVD. There is no carotid bruits. Lungs are clear to auscultation. Heart rate is regular. There is no murmur, gallop or rub. Rate is normal. Monitor reveals a narrow complex sinus rhythm rate of approximately 75-80. There was no ectopy noted on the monitor. There is no reproducible chest pain. Abdomen is soft nontender. No palp pulsatile mass or abdominal bruit. Lower extremity exam reveals no swelling, discoloration leg vein distention. She has no tenderness along distribution deep venous system or palpable cords. There is no pitting edema. Patient repeated multiple times she does not feel well and has no energy. Medical Decision Making this patient is 83 years of age and episode of fast heart rate with drop in pulse ox need to consider cardiac ischemia. She is on anticoagulant which would make PE less likely. With her complaint of frequency she may have a urinary tract infection which is stomach symptoms. Workup included EKG, appropriate blood work to evaluate for cardiac versus noncardiac chest discomfort and UA. Other additions or changes: [None] Lab Data Attestation: I reviewed the patient's lab results. Lab results narrative: CBC reveals mild anemia with normal indices. Comprehensive metabolic panel reveals an elevated creatinine at 1.26, which is approximately patient's baseline. Estimated GFR 43. Glucose is slightly elevated 125 with normal CO2 anion gap. First troponin is elevated at 15. UA macro was remarkable for protein, occult blood and leukoesterase. Negative for nitrites. Specific gravity is 1.015. Slightly cloudy and straw-colored. Micro is pending. UA is remarkable for pyuria however it is a contaminated specimen. There is no bacteria. Specific gravity was 1.015. Second troponin 17 with a delta of 2. Labs: Laboratory Results - last 24 hr 05/01/25 05/01/25 05/01/25 15:00 15:12 16:55 WBC 5.4 RBC 3.60 L Hgb 11.1 L Hct 34.8 L MCV 96.7 MCH 30.8 MCHC 31.9 L RDW Std Deviation 48.2 H RDW Coeff of Bashir 13.5 Plt Count 210 MPV 9.4 Immature Gran % (Auto) 0.200 Neut % (Auto) 57.2 Lymph % (Auto) 32.8 Benton % (Auto) 6.7 Eos % (Auto) 2.4 Baso % (Auto) 0.7 Absolute Neuts (auto) 3.1 Absolute Lymphs (auto) 1.77 Nucleated RBC % 0 PT 27.5 H INR 2.5 Sodium 142 Potassium 4.4 Chloride 107 Carbon Dioxide 25.0 Anion Gap 10 BUN 16 Creatinine 1.26 H Estim Creat Clear Calc 34.45 L Est GFR (MDRD) Non-Af 43 L BUN/Creatinine Ratio 12.9 Glucose 125 H Calcium 8.9 Troponin T High Sens 15 H Troponin T Hi Sens 2 Hr 17 H Urine Color Straw Urine Clarity Sl. Cloudy Urine pH 5.0 Ur Specific [place] 1.015 Urine Protein 30 H Urine Glucose (UA) Normal Urine Ketones Negative Urine Occult Blood 10 H Urine Nitrite Negative Urine Bilirubin Negative Urine Urobilinogen Normal Ur Leukocyte Esterase 500 H Urine RBC 0-5 SEEN Urine WBC 10-25 SEEN Ur Squamous Epith Cells 10-25 SEEN Ur Transition Epith Cell 0-5 SEEN Urine Bacteria 0 SEEN Urine Mucus 0 SEEN Radiography Chest X-Ray - ED: 2 View and Read by ED Physician (2 view x-rays independent review interpreted by me at 1529. Slightly rotated. Comparison slipped August 19, 2023. There is decreased inspiratory volume. Cardiac silhouette size normal. There is no effusion. There is no infiltrate. There are some chronic changes noted. Osseous structures w) Diagnostic Testing: Clinical Impression(s) from Imaging Studies Chest X-Ray 05/01/25 14:55 IMPRESSION: No acute cardiopulmonary process. Reading Location: [facility] EKG Initial EKG: Attestation: I personally reviewed and interpreted this EKG as follows: Interpretation: Sinus Rhythm (Sinus rhythm rate of 70. Disagree with interpretation by computer. NV interval is normal approximately 180 ms. QS duration 78 ms. QT duration 392 ms. [place] is normal. There is evidence of low voltage.) Discharge Plan Triage Chief Complaint: General Illness ED Midlevel Provider: Aisha Wright ED Provider: Brian Rivers Dx/Rx/DC Orders Clinical Impression: Palpitations, Generalized weakness, History of atrial fibrillation, Chronic anemia, Chronic kidney disease Instructions: ED Palpitations, ED Weakness Uncertain Cause Prescriptions: No Action gabapentin 300 mg capsule 300 mg PO BID 30 Days Qty: 90 pyridoxine (vitamin B6) 100 mg tablet 100 mg PO DAILY cholecalciferol (vitamin D3) 50 mcg (2,000 unit) capsule 50 mcg PO BID coenzyme Q10 [Q-Sorb Co Q-10] 100 mg capsule 100 mg PO DAILY calcium carbonate [Calcium 600] 600 mg calcium (1,500 mg) tablet 600 mg PO BID tamoxifen 20 mg tablet 20 mg PO DAILY Qty: 90 3RF escitalopram oxalate 10 mg tablet 10 mg PO QDAY Patient Comments: [NO ORIGINAL SIG] vnqaxgro-tag-qveo-FA-vit K-lut 1 EACH tablet 1 ea PO DAILY melatonin 3 mg tablet 10 mg PO QHS acetaminophen 500 mg tablet 1,000 mg PO ONCE warfarin 3 mg tablet 3 mg PO .COMPLEX Qty: 90 3RF Protocol: Dose Management Condition: Saturday Dose/Route: 1.5 mg Instruction: 0.5 x 3 mg tablets Condition: Saturday Dose/Route: 3 mg Instruction: 1 x 3 mg tablet Condition: Saturday Dose/Route: 3 mg Instruction: 1 x 3 mg tablet Condition: Saturday Dose/Route: 1.5 mg Instruction: 0.5 x 3 mg tablets Condition: Dose/Route: 1.5 mg Instruction: 0.5 x 3 mg tablets Condition: Saturday Dose/Route: 1.5 mg Instruction: 0.5 x 3 mg tablets Condition: Saturday Dose/Route: 1.5 mg Instruction: 0.5 x 3 mg tablets Protocol Text: Adjustment Start Date: Saturday02/24/25 INR Value: 2.3 INR Date: 02/24/25 Recheck Date: 03/26/25 Patient Comments: PT TO STOP PER DR. EASTMAN ORDERS PRIOR TO PROCEDURE Rx Instructions: 3 mg orally Every Saturday and Saturday: take 1/2 tablet all other days of the week OR as directed. Please give extra tablets for PRN dose changes. furosemide 40 mg tablet 40 mg PO DAILY Qty: 90 3RF metoprolol succinate 25 mg tablet extended release 24 hr 25 mg PO .COMPLEX Qty: 180 3RF Rx Instructions: 25 mg PO daily, may take one extra tablet daily for BP > 140 systolic or HR > 110.; losartan 100 mg tablet 100 mg PO DAILY Qty: 90 3RF atorvastatin 10 mg tablet 10 mg PO DAILY Qty: 90 3RF Primary Care Provider: Myles Lai Referrals: Myles Lai MD [Primary Care Provider] - Activity Restrictions/Additional Instructions: Your testing here is normal. I am not sure what caused your episode of palpitations last night but you may have gone into A-fib and now you are in normal sinus rhythm. 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 Return if symptoms worsen. Print Language: Mongolian Disposition Disposition: Home, Self Care Discharge Date/Time: 05/01/25 18:21
--- NOTE | 2025-05-01 15:08 | EKG12_ITS ---
Test Reason : CHEST PRESSURE Blood Pressure : */* mmHG Vent. Rate : 70 BPM Atrial Rate : * BPM P-R Int : * ms QRS Dur : 78 ms QT Int : 392 ms P-R-T Axes : * 57 62 degrees QTcB Int : 423 ms Normal sinus rhythm Low voltage QRS Abnormal ECG Confirmed by Holger Del Valle ([id number]), web content editor VICENTE WALKER ([id number]) on 05/03/2025 10:55:56 AM Referred By: Confirmed By: Holger Del Valle
--- NOTE | 2025-05-01 15:25 | CM.ED ---
Social Work: Date of referral: 05/01/2025 Reason for referral: No Advanced Care Directives (ACD's) on file Referred by: Social Work Identification Patient provided consent for social work visit. Care Associate requested a copy of ACD's/Living Will/Healthcare Power of Field Placement Director. Patient stated she would make sure the hospital gets a copy. No other concerns/needs identified at this time. Senait Valencia, OUTSIDE RIGGER, SPRING REPAIRER HELPER HAND
[2025-05-01 15:27] LABS: Absolute Lymphocyte Count 1.77 X10^3/uL (0.83-4.51); Absolute Neutrophil Count 3.1 X10^3/uL (2.0-7.7); Basophil# 0.04 X10^3/uL; Basophil% 0.7 % (0-1); Eosinophil# 0.13 X10^3/uL; Eosinophils% 2.4 % (0-5); Hematocrit 34.8 % (37-47); Hemoglobin 11.1 g/dL (12.0-15.0); Lymphocyte # 1.77 X10^3/ul (0.83-4.51); Lymphocyte % 32.8 % (19-41); Mean Corp Hgb Conc 31.9 g/dL (32-36); Mean Corpuscular Hgb 30.8 pg (27.0-32.0); Mean Corpuscular Volume 96.7 fL (81-99); Mean Platelet Vol. 9.4 fl (6.2-12.0); Monocyte# 0.36 X10^3/uL; Monocyte% 6.7 % (0-10); NRBC Flagged by Analyzer 0 % (0-5); Neutrophil # 3.08 X10^3/uL (2.7-7.7); Neutrophil % 57.2 % (47-70); Platelet Count 210 K/mm3 (150-450); RBC Distribution Width CV 13.5 % (11.6-14.6); RBC Distribution Width SD 48.2 fl (35.1-43.9); White Blood Count 5.4 K/mm3 (4.4-11.0)
[2025-05-01 15:27] LABS: Bacteria 0 SEEN /hpf (None Seen); Mucous, Urine 0 SEEN /hpf (<or=2+)
[2025-05-01 15:44] LABS: Anion Gap 10 (5-15); BUN 16 mg/dL (4-19); BUN/Creat Ratio 12.9 RATIO (10-20); Calcium,Total 8.9 mg/dL (7.6-11.0); Chloride 107 mmol/L (98-108); Creatinine, Serum 1.26 mg/dL (0.70-1.20); EST Glomerular Filtration Rate 43 (>60); Estimated Creatinine Clearance 34.45 ml/min (50-250); Glucose 125 mg/dL (70-99); Potassium 4.4 mmol/L (3.3-5.1); Sodium Level 142 mmol/L (133-145); Troponin T High Sensitivity 15 ng/L (<=14)
[2025-05-01 15:52] LABS: International Normalized Ratio 2.5; Prothrombin Time (Protime)PT. 27.5 SECONDS (11.7-14.9)
[2025-05-01 15:55] LABS: Color, Urine Straw (Yellow); Glucose, Dipstick Normal (Normal); Ketone-Dipstick Negative (Negative); Leukocyte Esterase-Dipstick 500 /ul (Negative); Nitrite-Dipstick Negative (Negative); Occult Blood-Urine 10 /ul (Negative); Protein-Dipstick 30 mg/dl (Negative); Specific Gravity, Urine 1.015 (1.002-1.030); Urine Bilirubin Dipstick Negative (Negative); Urine Clarity Sl. Cloudy (Clear); Urine Urobilinogen Normal (Normal)
[2025-05-01 16:27] VITALS: BP 122/68; PULSE 64; O2SAT 94
[2025-05-01 16:56] LABS: Red Blood Cells-Urine 0-5 SEEN /hpf (0-5); Squamous Epithelial Cells - UA 10-25 SEEN /hpf (5-10); Transitional Epithelial - Ur 0-5 SEEN /hpf (0-5); White Blood Cells 10-25 SEEN /hpf (0-5)
[2025-05-01] MEDS: Acetaminophen 325 MG Tablet 650 MG PO (17:08)
[2025-05-01 17:48] LABS: Troponin T High Sens 2 HR 17 ng/L (<=14)
[2025-05-01 18:00] VITALS: BP 138/76; PULSE 66
[2025-05-01 18:09] VITALS: BP 138/76; PULSE 64; RESP 16; TEMP 36.9; O2SAT 96
== END 2025-05-01 18:21 | disposition home or self-care (01) ==
PROVIDERS: Physician Assistant; Emergency Provider Emergency Medicine; PCP Family Medicine; Visit Provider Emergency Medicine
DX: R00.2 Palpitations (principal); E11.22 Type 2 diabetes mellitus with diabetic chronic kidney disease; N18.9 Chronic kidney disease, unspecified; Z79.01 Long term (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 of anticoagulants; R53.1 Weakness; R51.9 Headache, unspecified; I12.9 Hypertensive chronic kidney disease with stage 1 through stage 4 chronic kidney disease, or unspecified chronic kidney disease; Z90.710 Acquired absence of both cervix and uterus; E78.5 Hyperlipidemia, unspecified; D64.9 Anemia, unspecified; Z98.84 Bariatric surgery status; Z85.3 Personal history of malignant neoplasm of breast; Z99.89 Dependence on other enabling machines and devices; G47.33 Obstructive sleep apnea (adult) (pediatric); R39.15 Urgency of urination
CPT/HCPCS: 71046; 80048; 81001; 84484; 85025; 85610; 87077; 87086; 87088; 93005; 99283; A4216

== ENCOUNTER → 2025-05-18 | Outpatient (CLI) | payer MEDICARE, SELFPAY ==
[2019-09-15 09:55] VITALS: BMI 42.3
[2025-05-18 12:04] VITALS: PULSE 74; PULSE 82; PULSE 83; PULSE 86; PULSE 87; PULSE 90; PULSE 91; O2SAT 89; O2SAT 91; O2SAT 92; O2SAT 93; O2SAT 95
--- NOTE | 2025-05-21 10:45 | PCM.PSN.6M ---
PSN 6 Minute Walk Test 6 Minute Walk Test 6 Minute Walk Test: 6 Minute Walk Test PSN:6-Minute Walk Test Start: 05/18/25 12:35 Freq: Status: Active Protocol: RESP.6MINW Document 05/18/25 12:04 CHRIS (Rec: 05/18/25 12:38 WLB [id number]) 6 Minute Walk Test Assistive device Cane used: Pre-test Oxygen Delivery Room Air Method Pulse Ox (%) 95 Pulse Rate (60-100 74 beats/min) Dyspnea Bhavna Scale ( 1 0-10) Exertion Bhavna Scale 6 (6-20) 1st minute Oxygen Delivery Room Air Method Pulse Ox (%) 89 Pulse Rate (60-100 82 beats/min) 2nd minute Oxygen Delivery Room Air Method Pulse Ox (%) 92 Pulse Rate (60-100 83 beats/min) 3rd minute Oxygen Delivery Room Air Method Pulse Ox (%) 92 Pulse Rate (60-100 87 beats/min) 4th minute Oxygen Delivery Room Air Method Pulse Ox (%) 91 Pulse Rate (60-100 86 beats/min) Reported Symptoms Increased Work of Breathing 5th minute Oxygen Delivery Room Air Method Pulse Ox (%) 91 Pulse Rate (60-100 90 beats/min) Reported Symptoms Increased Work of Breathing 6th minute Oxygen Delivery Room Air Method Pulse Ox (%) 89 Pulse Rate (60-100 91 beats/min) Reported Symptoms Increased Work of Breathing Post-test Oxygen Delivery Room Air Method Pulse Ox (%) 93 Pulse Rate (60-100 91 beats/min) Full Laps Walked 7 Partial Lap, Number 0 of Tiles Walked Total Distance 413 Walked (ft) Interpretation Interpretation: The patient ambulated 413 feet over the course of 6 minutes beginning on room air with use of a cane. Pretesting oxygen saturation was noted to be 95% on room air. With ambulation, the ana oxygen saturation was 89%. This represents a significant exertional oxygen desaturation, consistent with a pulmonary limitation to exercise tolerance. Recommendations Recommendations: There is no indication for the use of supplemental oxygen at this time. However, close interval follow-up is recommended, given the degree of oxygen desaturation noted during this study.
== END | disposition home or self-care (01) ==
LOC: PSN 11:39
PROVIDERS: PCP Family Medicine; Referring Provider Nurse Practitioner Acute Care; Visit Provider Nurse Practitioner Acute Care
DX: R06.00 Dyspnea, unspecified (principal)
CPT/HCPCS: 94618

== ENCOUNTER 2025-05-25 11:28 | Day surgery (SDC) | payer MEDICARE, SELFPAY ==
[2019-09-15 09:55] VITALS: BMI 42.3
--- NOTE | 2025-04-29 13:33 | EKG12_ITS ---
Test Reason : PREOP Blood Pressure : */* mmHG Vent. Rate : 74 BPM Atrial Rate : 78 BPM P-R Int : * ms QRS Dur : 78 ms QT Int : 392 ms P-R-T Axes : * 69 37 degrees QTcB Int : 435 ms Normal sinus rhythm NSTW CHANGES ABNORMAL Confirmed by Holger Del Valle ([id number]), art editor NORY TRAORE ([id number]) on 05/03/2025 11:32:20 AM Referred By: Senait Dick Confirmed By: Holger Del Valle
[2025-04-29 15:49] LABS: Hemoglobin 10.5 g/dL (12.0-15.0); Mean Corp Hgb Conc 31.8 g/dL (32-36); Mean Corpuscular Hgb 30.7 pg (27.0-32.0); Mean Corpuscular Volume 96.5 fL (81-99); Mean Platelet Vol. 9.7 fl (6.2-12.0); Platelet Count 203 K/mm3 (150-450); RBC Distribution Width CV 13.7 % (11.6-14.6); RBC Distribution Width SD 48.6 fl (35.1-43.9); Red Blood Count 3.42 M/mm3 (4.2-5.4); White Blood Count 5.3 K/mm3 (4.4-11.0)
[2025-04-29 15:52] LABS: Absolute Lymphocyte Count 2.03 X10^3/uL (0.83-4.51); Absolute Neutrophil Count 2.5 X10^3/uL (2.0-7.7); Basophil# 0.04 X10^3/uL; Basophil% 0.8 % (0-1); Eosinophil# 0.23 X10^3/uL; Eosinophils% 4.4 % (0-5); Hematocrit 32.9 % (37-47); Hemoglobin 10.5 g/dL (12.0-15.0); Lymphocyte # 2.03 X10^3/ul (0.83-4.51); Lymphocyte % 38.8 % (19-41); Mean Corp Hgb Conc 31.9 g/dL (32-36); Mean Corpuscular Hgb 30.9 pg (27.0-32.0); Mean Corpuscular Volume 96.8 fL (81-99); Mean Platelet Vol. 9.6 fl (6.2-12.0); Monocyte% 7.6 % (0-10); NRBC Flagged by Analyzer 0 % (0-5); Neutrophil # 2.52 X10^3/uL (2.7-7.7); Neutrophil % 48.2 % (47-70); Platelet Count 204 K/mm3 (150-450); RBC Distribution Width CV 13.6 % (11.6-14.6); RBC Distribution Width SD 48.9 fl (35.1-43.9); White Blood Count 5.2 K/mm3 (4.4-11.0)
[2025-04-29 16:35] LABS: ALB/GLOB Ratio 1.6 RATIO (0.9-2.4); AST(SGOT) 25 U/L (<=31); Alanine Aminotransfer ALT/SGPT 14 U/L (<=34); Albumin, Serum 3.8 g/dL (3.4-4.8); Alkaline Phosphatase 39 U/L (35-104); Anion Gap 9 (5-15); BUN 17 mg/dL (4-19); BUN/Creat Ratio 14.4 RATIO (10-20); Calcium,Total 8.7 mg/dL (7.6-11.0); Carbon Dioxide 25.4 mmol/L (21.0-32.0); Chloride 106 mmol/L (98-108); Creatinine, Serum 1.21 mg/dL (0.70-1.20); EST Glomerular Filtration Rate 45 (>60); Globulin 2.4 g/dL (2.2-4.2); Glucose 84 mg/dL (70-99); LDH 177 U/L (84-246); Potassium 4.4 mmol/L (3.3-5.1); Protein, Total 6.3 g/dL (5.9-8.4); Sodium Level 141 mmol/L (133-145); Total Bilirubin 0.27 mg/dL (0.00-1.30)
--- NOTE | 2025-04-30 15:39 | PAT.ANESEVAL ---
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 When Was Last Pacemaker Check QUESTION #4 FULL TEXT: You/Your Family Experience fever (hyperthermia) with Anesthesia Last Oral Intake Last Oral intake: Last Oral Intake NPO since Meds taken in AM with sips of water? Meds patient instructed to take am of surgery PONV PONV - controls engineer: PONV - controls engineer Female Yes 04/28/25 13:21 HX of Motion Sickness No 04/28/25 13:21 HX of N/V After Surgery No 04/28/25 13:21 Non-Smoker Yes 04/28/25 13:21 Duration of Surgery greater No 04/28/25 13:21 than 60 minutes Number of Risk Factors 2 04/28/25 13:21 PONV Score Moderate Risk 04/28/25 13:21 Height & Weight Height & Weight: Anesthesia: Height & Weight Height 4 ft 10 in 04/30/25 13:50 Respiratory Assessment Respiratory Assessment - controls engineer: Respiratory Tract Infection Hx - controls engineer Hx Respiratory Tract Infection No 04/28/25 13:21 STOP Sleep Apnea STOP Sleep Apnea - controls engineer: STOP Sleep Apnea - controls engineer Hx Hypertension Yes: states controlled with 04/28/25 13:21 med Hx Sleep Apnea Yes 04/28/25 13:21 CPAP Yes 04/28/25 13:21 BIPAP No 04/28/25 13:21 Do you snore loudly (louder than talking or can be heard Do you often feel tired/ fatigued/ sleepy during daytime? Has anyone observed you stop breathing during sleep? STOP Results Positive 04/28/25 13:21 QUESTION #5 FULL TEXT : Do you snore loudly (louder than talking or can be heard through closed doors)? 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 Specify any problems Hx of Preganancy in last 3 No 04/28/25 13:21 Months Nurse Filling Out Transfusion VCHRISTIN 04/28/25 13:21 & Questions: Date: 04/28/25 04/28/25 13:21 Time: 13:22 04/28/25 13:21 Patient unable to answer at this time (ie. confused, unrespo /Reproduction History /Reproductive History - controls engineer: /Reproductive Hx- controls engineer Hx Now No 04/28/25 13:21 Gestational Age (in weeks): EDC: Hx Hx Para Hx Section SAB No 04/30/25 13:53 PFSH Medical History Wears glasses Post-menopausal Cancer Depression History of steroid therapy Arthritis Loss of consciousness History of IBS Non-smoker CPAP (continuous positive airway pressure) dependence Sleep apnea Shortness of breath on exertion Chronic cough History of echocardiogram History of stress test Hypertension History of irregular heartbeat Cardiology follow-up encounter History of atrial fibrillation History of trigger finger Osteoporosis Sleep apnea with use of continuous positive airway pressure (CPAP) Cataract, left eye Irritable bowel Wrist fracture, left Lung nodule, multiple Encounter for education Breast cancer, right breast Malignant neoplasm of central portion of right female breast Paroxysmal atrial flutter Spinal stenosis Essential (primary) hypertension 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 Paroxysmal atrial fibrillation Obesity Type 2 diabetes mellitus Home Medications ?Medication ?Instructions ?Recorded ?Last Taken ?Type [id number] 8 mg-folic 400 1 ea PO DAILY supplement 03/02/17 Unknown History mcg-K 50 mcg-lutein 300 mcg tablet gabapentin 300 mg capsule 300 mg PO BID pain 30 days #90 caps 12/24/18 Unknown History coenzyme Q10 100 mg capsule 100 mg PO DAILY 08/09/21 Unknown History (Q-Sorb Co Q-10) melatonin 3 mg tablet 10 mg PO QHS sleep 02/07/22 Unknown History acetaminophen 500 mg tablet 1,000 mg PO ONCE 11/09/22 Unknown History calcium carbonate (Calcium 600) 600 mg PO BID 11/09/22 Unknown History cholecalciferol (vitamin D3) 50 50 mcg PO BID 11/09/22 Unknown History mcg (2,000 unit) capsule pyridoxine (vitamin B6) 100 mg 100 mg PO DAILY supplement 11/09/22 Unknown History tablet tamoxifen 20 mg tablet 20 mg PO DAILY #90 TABLETS 09/14/24 Unknown Rx escitalopram oxalate 10 mg tablet 10 mg PO QDAY 02/26/25 Unknown History warfarin 3 mg tablet 3 mg PO .COMPLEX #90 TABLETS 03/08/25 Unknown Rx furosemide 40 mg tablet 40 mg PO DAILY #90 tabs 03/10/25 Unknown Rx metoprolol succinate 25 mg 25 mg PO .COMPLEX afib #180 tabs 03/15/25 Unknown Rx tablet,extended release 24 hr atorvastatin 10 mg tablet 10 mg PO DAILY #90 tabs 03/22/25 Unknown Rx losartan 100 mg tablet 100 mg PO DAILY #90 tabs 03/22/25 Unknown Rx Allergy/AdvReac Type Severity Reaction Status Date / Time No Known Allergies Allergy Verified 04/30/25 13:53 Family History Sister CVA (cerebral vascular accident) Father CAD (coronary artery disease) Hypertension Mother Hypertension CAD (coronary artery disease) Surgical History Hx of cataract extraction Status post right breast lumpectomy S/P right breast biopsy (03/05/19) S/P shoulder surgery H/O dilation and curettage H/O hand surgery S/P carpal tunnel release h/o breast lumpectomy H/O: hysterectomy H/O total knee replacement History of tonsillectomy History of back surgery History of radiofrequency ablation procedure for cardiac arrhythmia (03/20/11) History of gastric bypass Social History Smoking Status: Never smoker Electronic Cigarette Use: not used second hand exposure: Yes (Childhood ) alcohol intake: current alcohol intake frequency: holidays/special occasions only Alcohol type: wine substance use type: does not use additional social history: Audit: Pertinent Findings Pertinent Findings EKG Perinent findings: September 07, 2022. Atrial fibrillation. Inferior infarct, age undetermined. Stress test pertinent findings: 01/05/2019. No areas of reversibility to suggest ischemia. No previous infarct. Preserved ejection fraction. Echo (EF%) pertinent findings: 03/26/2025. EF 60%. No aortic stenosis noted. Minimal interval change from echo of 09/23/2023. Consult pertinent findings: 10/20/2024. Ian MARTINEZ. 1. Paroxysmal atrial fibrillation?chronic-last echo in 2022 had EF of 60% normal atrial size. Patient is in regular rhythm today. Heart rate controlled. Continue metoprolol and warfarin. 2. Hypertension?chronic-controlled. 3. Ynybymi-xuvtthqd-addp is a chronic problem. Will recheck lab work. 4. Chest pain?resolved-1 episode, midsternal, pressure-like. She will monitor if it recurs may consider a stress test. Recommendation Anesthesia Recommendation Anesthesia recommendation: OPTIMIZED for anesthesia
[2025-05-25] VITALS (13 sets, daily range): BP systolic 93–145; BP diastolic 65–85; PULSE 54–65; RESP 16–18; TEMP 36.6–36.9; O2SAT 92–96; BMI 41.3
[2025-05-25] MEDS: Lactated Ringers 1,000 ML 15 ML IV (12:15)
--- NOTE | 2025-05-25 13:15 | CYST_PTH ---
PATIENT: CHARLIE ULLOA [place] [facility] [id number] AGE/SX: 79/F ROOM: RE05/25/[address]: Dr. Senait Dick DO : 1945 BED: DIS: 05/25/2025 SPEC #: [id number] RECD: 05/25/25 16:03 STATUS: DIOR LUINuha #: [id number] DEL: 05/25/25 13:[address]: Senait Dick DEPT: SURGICAL PATHOLOGY RECD BY: Clark Cortez ENTERED: 05/26/25 09:33 SP TYPE: Cyst OTHR DR: Dr. Myles Lai MD Tissues: A - CYST Procedures: Surgery Specimen Level III HEADER OPERATION: Labial lysis of adhesions, removal of vaginal mass PRE-OP DIAGNOSIS: Vaginal mass, postmenopausal bleeding TISSUE SUBMITTED: A- Vaginal cyst MICROSCOPIC DIAGNOSIS A. Vagina, polypectomy: * Benign endocervical polyp with submucosal lipomatous and edematous features and focal squamous metaplasia MICROSCOPIC DESCRIPTION Slides are reviewed. GROSS DESCRIPTION A. Received in formalin labeled with the patient's name and date of . Designated as vaginal cyst is a 1.9 x 1.3 x 0.9 cm pale tolentino-pink, polypoid portion of rubbery tissue with a cauterized resection margin (inked black). Sectioning reveals transparent, edematous cut surfaces. Entirely submitted in 2 cassettes. [place] 05/26/2025 CPT:96009
--- NOTE | 2025-05-25 13:17 | PCM.PRE.AN2 ---
ASA Classification* ASA Classification ASA Classification: 3 Assessment & Plan Anesthesia* Anesthesia Assessment Anesthesia Assessment: Discussed sedation and/or anesthesia options, risks, benefits, and alternatives with patient/parents/legal guardian/POA. Questions invited. The patient/parents/legal guardian/POA seems to understand and agrees to proceed with anesthesia plan. Reviewed the physical assessment, medical history, allergy history and patient home medications list prior to surgery/procedure/anesthetic and documented any changes. Performed airway and anesthesia risk assessments. Anesthesia Type Anesthesia Type: MAC History Source History Obtained from:: Patient and Chart Anesthesia Focused Assessment* Temperature: 98.2 F Pulse Rate: 65 Blood Pressure: 145/85 Respiratory Rate: 18 Pulse Ox: 96 Oxygen Delivery Method: Room Air Airway Assessment Mouth opens: >3 cm Mallampati Score: II Teeth Condition: Caps/Crowns (Patient has several crowns. They are all tight. Patient has a upper right bridge. It is permanent.) Neck Range of motion (ROM): Full ROM Labs Anesthesia Preop lab: CBC WBC 5.4 K/mm3 (4.4-11.0) 05/01/25 15:00 05/01/25 RBC 3.60 M/mm3 (4.2-5.4) L 05/01/25 15:00 05/01/25 Hgb 11.1 g/dL (12.0-15.0) L 05/01/25 15:00 05/01/25 Hct 34.8 % (37-47) L 05/01/25 15:00 05/01/25 Plt Count 210 K/mm3 (150-450) 05/01/25 15:00 05/01/25 CHEMISTRY Potassium 4.4 mmol/L (3.3-5.1) 05/01/25 15:00 05/01/25 Sodium 142 mmol/L (133-145) 05/01/25 15:00 05/01/25 Magnesium 2.1 mg/dL (1.6-2.6) 09/14/24 10:22 09/14/24 Phosphorus 2.6 mg/dL (2.5-4.9) 09/14/24 10:22 09/14/24 BUN 16 mg/dL (4-19) 05/01/25 15:00 05/01/25 Creatinine 1.26 mg/dL (0.70-1.20) H 05/01/25 15:00 05/01/25 Glucose 125 mg/dL (70-99) H 05/01/25 15:00 05/01/25 TSH 2.07 uIU/mL (0.358-3.74) 07/30/23 11:36 07/30/23 COAG PT 27.5 SECONDS (11.7-14.9) H 05/01/25 15:00 05/01/25 INR 2.5 01/14/25 09:25 01/14/25 Pre-Assessment Diagnosis/Proposed Procedure Planned Operative Procedure(s): Labial Lysis of Adhesions, removal of Vaginal Mass Anesthesia History Anesthesia History - band presser: Anesthesia History - band presser Hx Hospitalization No 04/28/25 13:21 Any Problems With Anesthesia Yes: sometimes nausea 04/28/25 13:21 Cholinesterase deficiency No 04/28/25 13:21 You/Your Family Experience No 04/28/25 13:21 fever (hyperthermia) with Relationship Recent Exposure to Contagious No 05/25/25 12:03 Disease Does patient have nerve No 04/28/25 13:21 stimulator Patient instructed to have device shut off --Does patient have Pacemaker No 05/25/25 12:03 or ICD? When Was Last Pacemaker Check QUESTION #4 FULL TEXT: You/Your Family Experience fever (hyperthermia) with Anesthesia Last Oral Intake Last Oral intake: Last Oral Intake NPO since 21:00 05/25/25 12:03 Meds taken in AM with sips of Yes 05/25/25 12:03 water? Meds patient instructed to take am of surgery Any additional information?: Yes Meds taken in AM with sips of water?: Yes PONV PONV - band presser: PONV - band presser Female Yes 04/28/25 13:21 HX of Motion Sickness No 04/28/25 13:21 HX of N/V After Surgery No 04/28/25 13:21 Non-Smoker Yes 04/28/25 13:21 Duration of Surgery greater No 04/28/25 13:21 than 60 minutes Number of Risk Factors 2 04/28/25 13:21 PONV Score Moderate Risk 04/28/25 13:21 Height & Weight Height & Weight: Anesthesia: Height & Weight Height 4 ft 10 in 05/25/25 12:03 Weight: 89.6 kg 05/25/25 12:03 Body Mass Index (BMI) 41.3 05/25/25 12:03 Respiratory Assessment Respiratory Assessment - band presser: Respiratory Tract Infection Hx - band presser Hx Respiratory Tract Infection No 04/28/25 13:21 STOP Sleep Apnea STOP Sleep Apnea - band presser: STOP Sleep Apnea - band presser Hx Hypertension Yes: states controlled with 04/28/25 13:21 med Hx Sleep Apnea Yes 04/28/25 13:21 CPAP Yes 04/28/25 13:21 BIPAP No 04/28/25 13:21 Do you snore loudly (louder than talking or can be heard Do you often feel tired/ fatigued/ sleepy during daytime? Has anyone observed you stop breathing during sleep? STOP Results Positive 04/28/25 13:21 QUESTION #5 FULL TEXT : Do you snore loudly (louder than talking or can be heard through closed doors)? Tobacco Use History Tobacco Use History - band presser: Tobacco Use History - band presser Tobacco Use Smoking Status Never smoker 05/01/25 14:57 Hx Tobacco Use No 04/28/25 13:21 Years Smoking Packs Smoked per Day Smoking Cessation Date was within the last 15 years Hx Smoking Cessation Date Hx Smoking Cessation Counseling Hematologic Medial History Hematologic Hx - band presser: Hematologic Medical Hx - support services specialist Hx of Blood Transfusion No 04/28/25 13:21 Hx of Transfusion in last 3 No 04/28/25 13:21 Months Date of Last Transfusion (if within last 3 months) Ever experience any problems No 04/28/25 13:21 with transfusion(s)? Specify any problems Hx of Preganancy in last 3 No 04/28/25 13:21 Months Nurse Filling Out Transfusion VCHRISTIN 04/28/25 13:21 & Questions: Date: 04/28/25 04/28/25 13:21 Time: 13:22 04/28/25 13:21 Patient unable to answer at this time (ie. confused, unrespo /Reproduction History /Reproductive History - band presser: /Reproductive Hx- band presser Hx Now No 04/28/25 13:21 Gestational Age (in weeks): EDC: Hx Hx Para Hx Section SAB No 04/30/25 13:53 Active Medications Active Medications: Current Medications Generic Name Dose Route Start Last Admin Trade Name Edmar PRN Reason Stop Dose Admin Lactated Ringer's 1,000 mls @ 15 mls/hr 05/25/25 11:45 05/25/25 12:15 IV 15 mls/hr .Q48H SHILOH Administration PFSH Medical History Dilated aortic root Wears glasses Post-menopausal Cancer Depression History of steroid therapy Arthritis Loss of consciousness History of IBS Non-smoker CPAP (continuous positive airway pressure) dependence Sleep apnea Shortness of breath on exertion Chronic cough History of echocardiogram History of stress test Hypertension History of irregular heartbeat Cardiology follow-up encounter History of atrial fibrillation History of trigger finger Osteoporosis Sleep apnea with use of continuous positive airway pressure (CPAP) Cataract, left eye Irritable bowel Wrist fracture, left Lung nodule, multiple Encounter for education Breast cancer, right breast Malignant neoplasm of central portion of right female breast Paroxysmal atrial flutter Spinal stenosis Essential (primary) hypertension long-term (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 of anticoagulants Paroxysmal atrial fibrillation Obesity Type 2 diabetes mellitus Home Medications ?Medication ?Instructions ?Recorded ?Last Taken ?Type [id number] 8 mg-folic 400 1 ea PO DAILY supplement 03/02/17 05/24/25 History mcg-K 50 mcg-lutein 300 mcg tablet gabapentin 300 mg capsule 300 mg PO BID pain 30 days #90 caps 12/24/18 05/25/25 History coenzyme Q10 100 mg capsule 100 mg PO DAILY 08/09/21 05/24/25 History (Q-Sorb Co Q-10) melatonin 3 mg tablet 10 mg PO QHS sleep 02/07/22 05/24/25 History acetaminophen 500 mg tablet 1,000 mg PO ONCE 11/09/22 05/24/25 History calcium carbonate (Calcium 600) 600 mg PO BID 11/09/22 05/24/25 History cholecalciferol (vitamin D3) 50 50 mcg PO BID 11/09/22 05/24/25 History mcg (2,000 unit) capsule pyridoxine (vitamin B6) 100 mg 100 mg PO DAILY supplement 11/09/22 05/24/25 History tablet tamoxifen 20 mg tablet 20 mg PO DAILY #90 TABLETS 09/14/24 05/24/25 Rx escitalopram oxalate 10 mg tablet 10 mg PO QDAY 02/26/25 05/24/25 History warfarin 3 mg tablet 3 mg PO .COMPLEX #90 TABLETS 03/08/25 05/20/25 Rx furosemide 40 mg tablet 40 mg PO DAILY #90 tabs 03/10/25 05/24/25 Rx metoprolol succinate 25 mg 25 mg PO .COMPLEX afib #180 tabs 03/15/25 05/25/25 Rx tablet,extended release 24 hr atorvastatin 10 mg tablet 10 mg PO DAILY #90 tabs 03/22/25 05/24/25 Rx losartan 100 mg tablet 100 mg PO DAILY #90 tabs 03/22/25 05/25/25 Rx metoprolol tartrate 25 mg tablet 25 mg PO .COMPLEX PRN rapid HR #10 05/18/25 Unknown Rx tabs Allergy/AdvReac Type Severity Reaction Status Date / Time No Known Allergies Allergy Verified 05/25/25 12:01 Family History Sister CVA (cerebral vascular accident) Father CAD (coronary artery disease) Hypertension Mother Hypertension CAD (coronary artery disease) Surgical History Hx of cataract extraction Status post right breast lumpectomy S/P right breast biopsy (03/05/19) S/P shoulder surgery H/O dilation and curettage H/O hand surgery S/P carpal tunnel release h/o breast lumpectomy H/O: hysterectomy H/O total knee replacement History of tonsillectomy History of back surgery History of radiofrequency ablation procedure for cardiac arrhythmia (03/20/11) History of gastric bypass Social History Smoking Status: Never smoker Electronic Cigarette Use: not used second hand exposure: Yes (Childhood ) alcohol intake: current alcohol intake frequency: holidays/special occasions only Alcohol type: wine substance use type: does not use additional social history: Review of Systems (Anesthesia) ROS Narrative System reviewed and no additional complaints, except as documented.
--- NOTE | 2025-05-25 13:31 | PCM.HP.BLA ---
History and Physical Date of Admission: 05/25/25 Intake Vital Signs 04/06/2508:35 04/30/2513:50 Height 4 ft 10 in 4 ft 10 in Weight: 198 lb 8 oz 197 lb BMI 41.5 41.1 BP 104/71 101/69 Intake Visit Reasons: labial lysis of adhesions remove vag. mass Anthropology And Archeology Instructor Required: No Is patient in pain?: No Allergies No Known Allergies Allergy (Verified 04/30/25 13:53) Medications ?Medication ?Instructions ?Recorded ?Confirmed ?Type [id number] 8 mg-folic 400 1 ea PO DAILY supplement 03/02/17 04/30/25 History mcg-K 50 mcg-lutein 300 mcg tablet gabapentin 300 mg capsule 300 mg PO BID pain 30 days #90 caps 12/24/18 04/30/25 History coenzyme Q10 100 mg capsule 100 mg PO DAILY 08/09/21 04/30/25 History (Q-Sorb Co Q-10) melatonin 3 mg tablet 10 mg PO QHS sleep 02/07/22 04/30/25 History acetaminophen 500 mg tablet 1,000 mg PO ONCE 11/09/22 04/30/25 History calcium carbonate (Calcium 600) 600 mg PO BID 11/09/22 04/30/25 History cholecalciferol (vitamin D3) 50 50 mcg PO BID 11/09/22 04/30/25 History mcg (2,000 unit) capsule pyridoxine (vitamin B6) 100 mg 100 mg PO DAILY supplement 11/09/22 04/30/25 History tablet tamoxifen 20 mg tablet 20 mg PO DAILY #90 TABLETS 09/14/24 04/30/25 Rx escitalopram oxalate 10 mg tablet 10 mg PO QDAY 02/26/25 04/30/25 History warfarin 3 mg tablet 3 mg PO .COMPLEX #90 TABLETS 03/08/25 04/30/25 Rx furosemide 40 mg tablet 40 mg PO DAILY #90 tabs 03/10/25 04/30/25 Rx metoprolol succinate 25 mg 25 mg PO .COMPLEX afib #180 tabs 03/15/25 04/30/25 Rx tablet,extended release 24 hr atorvastatin 10 mg tablet 10 mg PO DAILY #90 tabs 03/22/25 04/30/25 Rx losartan 100 mg tablet 100 mg PO DAILY #90 tabs 03/22/25 04/30/25 Rx Is last menstrual period known: No Post menopausal: Yes Patient : No : No [facility] Medical History Wears glasses Post-menopausal Cancer Depression History of steroid therapy Arthritis Loss of consciousness History of IBS Non-smoker CPAP (continuous positive airway pressure) dependence Sleep apnea Shortness of breath on exertion Chronic cough History of echocardiogram History of stress test Hypertension History of irregular heartbeat Cardiology follow-up encounter History of atrial fibrillation History of trigger finger Osteoporosis Sleep apnea with use of continuous positive airway pressure (CPAP) Cataract, left eye Irritable bowel Wrist fracture, left Lung nodule, multiple Encounter for education Breast cancer, right breast Malignant neoplasm of central portion of right female breast Paroxysmal atrial flutter Spinal stenosis 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 (primary) 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 Paroxysmal atrial fibrillation Obesity Type 2 diabetes mellitus Surgical History Hx of cataract extraction Status post right breast lumpectomy S/P right breast biopsy (03/05/19) S/P shoulder surgery H/O dilation and curettage H/O hand surgery S/P carpal tunnel release h/o breast lumpectomy H/O: hysterectomy H/O total knee replacement History of tonsillectomy History of back surgery History of radiofrequency ablation procedure for cardiac arrhythmia (03/20/11) History of gastric bypass Family History Sister CVA (cerebral vascular accident)Father CAD (coronary artery disease) HypertensionMother Hypertension CAD (coronary artery disease) Social History Smoking Status: Never smoker Electronic Cigarette Use: not used second hand exposure: Yes (Childhood ) alcohol intake: current alcohol intake frequency: holidays/special occasions only Alcohol type: wine substance use type: does not use additional social history: HPI labial lysis of adhesions remove vag. mass Details: CHARLIE ULLOA is a 79 year old who presents for a pre op evaluation for a labial lysis of adhesions and removal of vaginal mass. Her pcp gave instructions to proceed with surgery but to manage the coumadin as I feel appropriate. Surgery is scheduled for 05/11/25 however patient states that she would really like to go to [facility] on the and go to a camp ground where she will swim and be out doors. I have explained to her that she is at risk for labial hematoma after these kinds of procedures, especially when on coumadin and I need her to be limited activity for a few days. She is requesting we move the surgery to 05/25 instead. She also states that Dr. Epstein may have better recommendations about when to stop and restart her coumadin. History 3 Elective abortions Hx Para 3 Spontaneous abortions Hx # Term Pregnancies Ectopic pregnancies Hx # Pregnancies Multiple births # of living children Past Pregnancies Del. Date Name GA/Weeks Outcome Route Bth Weight Gen Labor Lgth Anesthesia Del Locatn Provider FOB Unknown Sergey Unknown Anuel Unknown Akiko ROS Const ROS Unobtainable: All systems reviewed & are unremarkable except as noted in H Resp Resp: Reports system reviewed and no additional complaints, except as documented; Denies cough GI GI: Reports as per HPI Psych Psych: Reports system reviewed and no additional complaints, except as documented Exam Const General: cooperative, healthy appearing, comfortable and no acute distress Resp Effort & Inspection: normal respiratory effort Skin General: no rashes or lesions noted Psych Appearance: grossly normal Speech and Movement: speech and movement normal Coding Level of Care Code Off vis,est,level 4 Diagnoses Vaginal mass N89.8 Postmenopausal bleeding N95.0 Assessment and Plan Assessment and Plan (1) Vaginal mass: Status: Acute (2) Postmenopausal bleeding: Status: Acute Plan After discussing the patient's diagnosis and treatment plan options, patient wishes to proceed with surgical management. I have discussed with the patient the risks, benefits, and alternatives of the procedure which include but are not limited to risks of anesthesia, bleeding, infection, possible damage to bowel, bladder, or surrounding vasculature which could lead to additional surgery to evaluate any complications. Patient agrees to procedure and wishes to proceed. ACOG/uptodate references given for additional information regarding procedure. plan for lysis of labia adhesions and removal of vaginal mass that is likely causing postmenopausal bleeding. will need estrogen cream after surgery and will need to contact Dr. Epstein about her coumadin. Will rescheduled to 05/25/25
--- NOTE | 2025-05-25 13:32 | DCINST_ITS ---
Discharge Instructions Diet Discharge Diet: No restrictions DC O2, CPAP, BIPAP needs Home O2 Discharge instructions: No Dressing / Incision Discharge Activity: Return to Normal Activity Weight Bearing Status: Weight bearing as tolerated Lifting Restrictions: none Additional Activity Instructions:: may shower but no bath for 2 weeks Dressing / Incision Call your doctor if your incision/area has: Sudden Increased Bleeding and Foul Smelling Discharge Call your doctor if you observe: Fever of 101 or Higher, Using more than 1 pad per hour, Shortness of breath, Dizziness, Fainting spells, Chest pain, Calf discomfort and Uncontrolled pain Follow Up Care Test Results: Test results from this visit will be discussed in further detail at your follow- up appointment, if applicable. Discharge Plan Admission Primary Reason for Your Visit: excision of vaginal cyst Attending Provider: Senait Dick Primary Care Provider: Myles Lai Instructions Print Language: [place] Island[place] Discharge Orders/Prescriptions Prescriptions: Continued gabapentin 300 mg capsule 300 mg PO BID 30 Days Qty: 90 pyridoxine (vitamin B6) 100 mg tablet 100 mg PO DAILY cholecalciferol (vitamin D3) 50 mcg (2,000 unit) capsule 50 mcg PO BID coenzyme Q10 [Q-Sorb Co Q-10] 100 mg capsule 100 mg PO DAILY calcium carbonate [Calcium 600] 600 mg calcium (1,500 mg) tablet 600 mg PO BID tamoxifen 20 mg tablet 20 mg PO DAILY Qty: 90 3RF escitalopram oxalate 10 mg tablet 10 mg PO QDAY Patient Comments: [NO ORIGINAL SIG] metoprolol tartrate 25 mg tablet 25 mg PO .COMPLEX PRN (Reason: rapid HR) Qty: 10 0RF Rx Instructions: 25 mg orally as needed for rapid HR, do not take more than one a day cmmwshzy-uuf-xqwb-FA-vit K-lut 1 EACH tablet 1 ea PO DAILY melatonin 3 mg tablet 10 mg PO QHS acetaminophen 500 mg tablet 1,000 mg PO ONCE warfarin 3 mg tablet 3 mg PO .COMPLEX Qty: 90 3RF Protocol: Dose Management Condition: Saturday Dose/Route: 1.5 mg Instruction: 0.5 x 3 mg tablets Condition: Saturday Dose/Route: 3 mg Instruction: 1 x 3 mg tablet Condition: Saturday Dose/Route: 3 mg Instruction: 1 x 3 mg tablet Condition: Saturday Dose/Route: 1.5 mg Instruction: 0.5 x 3 mg tablets Condition: Dose/Route: 1.5 mg Instruction: 0.5 x 3 mg tablets Condition: Saturday Dose/Route: 1.5 mg Instruction: 0.5 x 3 mg tablets Condition: Saturday Dose/Route: 1.5 mg Instruction: 0.5 x 3 mg tablets Protocol Text: Adjustment Start Date: Saturday02/24/25 INR Value: 2.3 INR Date: 02/24/25 Recheck Date: 03/26/25 Patient Comments: PT TO STOP PER DR. EASTMAN ORDERS PRIOR TO PROCEDURE Rx Instructions: 3 mg orally Every Saturday and Saturday: take 1/2 tablet all other days of the week OR as directed. Please give extra tablets for PRN dose changes. furosemide 40 mg tablet 40 mg PO DAILY Qty: 90 3RF metoprolol succinate 25 mg tablet extended release 24 hr 25 mg PO .COMPLEX Qty: 180 3RF Rx Instructions: 25 mg PO daily, may take one extra tablet daily for BP > 140 systolic or HR > 110.; losartan 100 mg tablet 100 mg PO DAILY Qty: 90 3RF atorvastatin 10 mg tablet 10 mg PO DAILY Qty: 90 3RF Referrals / Follow Up: Myles Lai MD [Primary Care Provider] - Disposition Disposition (needs filled in before D/C Order can be placed): Home, Self Care
[2025-05-25] MEDS: Lidocaine 1% (30 ml sdv) 30 ML Vial (14:14)
--- NOTE | 2025-05-25 14:17 | PCM.OPRPT ---
Problems Associated Problem List Diagnoses (1) Vaginal mass: (2) Postmenopausal bleeding: Multi Select Codes Urinary/Genital Urinary/Genital CPT Codes: Other Procedure See Report (removal of vaginal cyst and lysis of labial adhesions ) Operative Report (Standard) Operative Information Date of Procedure: 05/25/25 Pre-Operative Diagnosis: labial adhesions, vaginal mass, postmenopausal bleeding Post-Operative Diagnosis: labial adhesions, vaginal mass, postmenopausal bleeding Surgery/Procedure Performed: lysis of labial adhesions and removal of vaginal mass transfer coordinator: No Type of Anesthesia: MAC and Topical Anesth RN Documented Start/Stop Times: Operation Date: 05/25/25 13:15 Case Time Into Pre-Op 05/25/25 11:40 Out of Pre-Op 05/25/25 13:48 Anesthesia Start 05/25/25 13:51 Into Room 05/25/25 13:51 Procedure Start 05/25/25 14:08 Procedure End 05/25/25 14:16 Procedure Start Time: 14:08 Procedure Stop Time: 14:16 Select all DRAINS/GRAFTS/IMPLANTS that apply: None Estimated Blood Loss: 3cc Specimen collected: Yes Description of specimen(s) removed: vaginal cyst Description of surgery: The patient was brought to the operating room and MAC anesthesia was administered. The patient's legs were placed in stirrups. The external genitalia and vagina were prepped and draped in the normal sterile fashion. There was noted to be adhesions of the right labia to the left labia. The base of the perineum was first injected with 1% lidocaine. The labial adhesions were carefully pulled apart manually. A right angle retractor was placed in the vagina and used as a speculum. A 2 cm vaginal cyst was noted and grasped with an Allis clamp. This was noted to have the consistency of a semifluctuant material. The mass was noted to be adherent to the vaginal cuff by a tiny stalk. The stalk was cauterized using the Bovie cautery after 1% lidocaine was injected. Excellent hemostasis was noted. The specimen was passed off for pathology analysis. The labial adhesions were starting to have some oozing and bleeding and Heema blast was applied to this area and pressure was held. Excellent hemostasis was noted at the completion of the procedure. Sponge lap needle counts were correct x 2. Surgical Findings: Labial adhesions and vaginal cyst noted. Complications Complications: No Admit VTE Documentation VTE Present on Admission: Yes VTE Mechan Device Prophylaxis: SCD's VTE Pharm Prophylaxis ordered?: Yes
--- NOTE | 2025-05-25 14:26 | PCM.POST.ANE ---
Anesthesia: Postop Eval I Current Vital Signs Temperature: 97.9 F Pulse Rate: 60 Blood Pressure: 93/65 Respiratory Rate: 16 Pulse Ox: 92 Oxygen Delivery Method: Room Air Assessment Airway patent: Yes Spontaneous unlabored respirations: Yes Mental status: Awake and Calm nausea: No Vomiting: No Anesthesia Complication: No Fluid Hydration Crystalloid volume administer (ml): 500 Total IV fluid infused: 500 Progress Note Anesthesia document: Postop Eval 1 completed: Yes
--- NOTE | 2025-05-25 22:36 | PCM.POSTANE2 ---
Anesthesia Postop Eval I Sum Postop Eval Completion status Anesthesia document: Postop Eval 1 completed: Yes Anesthesia Postop Eval I Summary Anesthesia Postop Eval I Summary: Anesthesia Postop Eval I: Assessment Summary Airway patent Yes 05/25/25 22:33 Spontaneous unlabored Yes 05/25/25 22:33 respirations Mental status Awake,Calm 05/25/25 22:33 nausea No 05/25/25 22:33 Vomiting No 05/25/25 22:33 Anesthesia Postop Eval I: Fluid Summary Crystalloid volume administer 500 05/25/25 22:35 (ml) Colloids volume administered ( ml) Blood Product volume administered (ml) Total IV fluid infused 500 05/25/25 22:35 Anesthesia Postop Eval I: Summary Notes Anesthesia Complication No 05/25/25 22:33 Anesthesia Complication Comment: Post-operative progress note Anesthesia: Postop Eval II Evaluation Mental status: Awake and Calm Pain Level: 1 nausea: No Vomiting: No Complications Anesthesia Complication: No
[2025-05-26 09:14] LABS: INR Fingerstick 1.3; Prothrombin Time Fingerstick 15.2 SEC (11.7-14.9)
== END 2025-05-25 16:06 | disposition home or self-care (01) ==
LOC: SDC 11:28 → AC 11:30
PROVIDERS: Internal Medicine Medical Oncology; PCP Family Medicine; Referring Provider Obstetrics & Gynecology; Visit Provider Obstetrics & Gynecology
PROC: (CPT 56441; principal; 2025-05-25 13:00)
DX: N95.0 Postmenopausal bleeding (principal); E11.9 Type 2 diabetes mellitus without complications; Z90.710 Acquired absence of both cervix and uterus; Z79.01 Long term (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 of anticoagulants; N89.8 Other specified noninflammatory disorders of vagina; I10 Essential (primary) hypertension; Z85.3 Personal history of malignant neoplasm of breast; Z98.84 Bariatric surgery status; N84.1 Polyp of cervix uteri; Z99.89 Dependence on other enabling machines and devices; G47.30 Sleep apnea, unspecified
CPT/HCPCS: 56441; 57135; 36415; 36416; 80053; 83615; 85025; 85027; 85610; 86850; 86900; 86901; 88304; 93005; J2405

== ENCOUNTER 2025-06-25 14:24 | Outpatient (RCR) | payer MEDICARE, SELFPAY ==
[2019-09-15 09:55] VITALS: BMI 42.3
[2025-03-01 23:08] VITALS: BMI 43.7
[2025-06-25 14:46] LABS: INR Fingerstick 3.1
== END 2025-07-02 00:29 | disposition home or self-care (01) ==
LOC: MTLAB 14:24
PROVIDERS: Family Provider Family Medicine; PCP Family Medicine; Referring Provider Internal Medicine Cardiovascular Disease; Visit Provider Internal Medicine Cardiovascular Disease
DX: I48.0 Paroxysmal atrial fibrillation (principal); Z79.01 Long term (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 of anticoagulants; I48.92 Unspecified atrial flutter
CPT/HCPCS: 36416; 85610

== ENCOUNTER 2025-08-24 10:23 | Outpatient (RCR) | payer MEDICARE, SELFPAY ==
[2019-09-15 09:55] VITALS: BMI 42.3
[2025-08-04 13:54] LABS: INR Fingerstick 3.5
[2025-08-17 12:21] LABS: Prothrombin Time (Protime)PT. 20.1 SECONDS (11.7-14.9)
[2025-08-17 12:33] LABS: Hematocrit 34.9 % (37-47); Hemoglobin 11.3 g/dL (12.0-15.0); Immature Granulocytes Count 0.010 X10^3/uL (0.0-0.0); Mean Corp Hgb Conc 32.4 g/dL (32-36); Mean Corpuscular Volume 97.5 fL (81-99); Mean Platelet Vol. 9.6 fl (6.2-12.0); NRBC Flagged by Analyzer 0 % (0-5); Platelet Count 219 K/mm3 (150-450); RBC Distribution Width CV 13.8 % (11.6-14.6); RBC Distribution Width SD 49.4 fl (35.1-43.9); Red Blood Count 3.58 M/mm3 (4.2-5.4); White Blood Count 5.3 K/mm3 (4.4-11.0)
[2025-08-17 13:49] LABS: AST(SGOT) 24 U/L (<=31); Alanine Aminotransfer ALT/SGPT 14 U/L (<=34); Albumin, Serum 3.9 g/dL (3.4-4.8); Alkaline Phosphatase 41 U/L (35-104); Anion Gap 10 (5-15); BUN 19 mg/dL (4-19); BUN/Creat Ratio 16.0 RATIO (10-20); Calcium,Total 9.1 mg/dL (7.6-11.0); Carbon Dioxide 26.9 mmol/L (21.0-32.0); Chloride 104 mmol/L (98-108); Cholesterol 136 mg/dL (<=200); Globulin 2.7 g/dL (2.2-4.2); Glucose 122 mg/dL (70-99); Low Density Lipoprotein Calc. 65 mg/dL; Potassium 4.5 mmol/L (3.3-5.1); Triglycerides 100 mg/dL; Very Low Density Lipoprotein 20 mg/dL (5-40); Vitamin D,25 Hydroxy 65.2 ng/mL (30-100); cholesterol:hdl ratio screen 2.65
[2025-08-24 10:34] LABS: INR Fingerstick 2.7
== END 2025-08-31 18:00 | disposition home or self-care (01) ==
LOC: MTLAB 10:23
PROVIDERS: Family Provider Family Medicine; PCP Family Medicine; Referring Provider Internal Medicine Cardiovascular Disease; Visit Provider Internal Medicine Cardiovascular Disease
DX: I48.0 Paroxysmal atrial fibrillation (principal); Z79.01 Long term (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 of anticoagulants; E11.59 Type 2 diabetes mellitus with other circulatory complications; E55.9 Vitamin D deficiency, unspecified
CPT/HCPCS: 36415; 36416; 80053; 80061; 82306; 84443; 85025; 85610

== ENCOUNTER → 2025-08-25 | Outpatient (CLI) | payer MEDICARE, SELFPAY ==
[2019-09-15 09:55] VITALS: BMI 42.3
[2025-08-25 18:41] LABS: Creatinine, Urine (random) 59.40 mg/dL (28.00-217.00); Microalbumin,Random Urine < 12.0 mg/L (<20 mg/L)
--- OUTSIDE RECORDS SUMMARY | 2025-08-25 18:58 | XMS RPT_ITS | CCD ---
Author Organization [facility] Care Team Providers Care Rn Spine Name Role Phone JOELLE BERRIOS, DR SANCHEZ Primary Care Physician Dr. J Luis Lai Primary Care Provider [phone] Dr. J Luis Lai Referring Provider Dr. Josue Leal Attending Provider Ian DALY, JUAN Quintana Attending Provider DR DANIEL LAI MD Primary Care Physician Dr. J Luis Lai Other Provider [phone] Bradley Gatica Attending Provider Dr. JLuis Lai Primary Care Provider [phone] Dr. J Luis Lai Referring Provider Dr. Juni Epstein Attending Provider Dr. Bradley Gatica Referring Provider Dr. Bradley Gatica Other Provider Dr. J Luis Lai Primary Care Provider [phone] Dr. J Luis Lai Referring Provider Dr. Josue Leal Attending Provider Dr. J Luis Lai Primary Care Provider [phone] Dr. J Luis Lai Referring Provider Dr. Bradley Gatica Attending Provider Dr. J Luis Lai Primary Care Provider [phone] Dr. Bradley Gatica Attending Provider Dr. J Luis Lai Referring Provider Dr. Juni Epstein Attending Provider Dr. J Luis Lai Primary Care Provider Dr. J Luis Lai Referring Provider Dr. Bradley Gatica Attending Provider Dr. Juni Epstein Attending Provider Geoff RESEARCH EXECUTIVE, RESEARCH EXECUTIVE-C Micki Attending Provider Dr. J Luis Lai Primary Care Provider Dr. J Luis Lai Attending Provider Dr. J Luis Lai Referring Provider Ian RESEARCH EXECUTIVE, RESEARCH EXECUTIVE-C Chapo Attending Provider Dr. Bradley Gatica Attending Provider Dr. J Luis Lai Primary Care Provider Dr. J Luis Lai Primary Care Provider Lucian, Dr. Alfredo Attending Provider Dr. J Luis Lai Referring Provider Andreea RESEARCH EXECUTIVE, RESEARCH EXECUTIVE-C Brandie Attending Provider [phone] Dr. Juni Epstein Referring Provider Dr. J Luis Lai Primary Care Provider Dr. Juni Epstein Attending Provider Dr. Juni Epstein Referring Provider Dr. J Luis Lai Referring Provider Andreea RESEARCH EXECUTIVE, RESEARCH EXECUTIVE-C Brandie Attending Provider [phone] Ian RESEARCH EXECUTIVE, RESEARCH EXECUTIVE-C Chapo Attending Provider Dr. Daniel Lai Primary Care Provider Dr. Daniel Lai Attending Provider Dr. Daniel Lai Referring Provider Dr. Josue Leal Attending Provider Joelle BERRIOS, Dr. Sanchez Primary Care Provider Joelle BERRIOS, Dr. Sanchez Attending Provider Lucian BERRIOS, Dr. Alfredo Attending Provider Lucian BERRIOS, Dr. Alfredo Referring Provider Keri RESEARCH EXECUTIVE-C, Joanna Other Provider Ian RESEARCH EXECUTIVE-C, Chapo Other Provider Mel BERRIOS, Dr. Salas Other Provider Joelle BERRIOS, Dr. Sanchez Referring Provider [phone] Andreea RESEARCH EXECUTIVE-C, Brandie Attending Provider Joelle BERRIOS, Dr. Sanchez Primary Care Provider Joelle BERRIOS, Dr. Sanchez Attending Provider [phone] Mel BERRIOS, Dr. Salas Attending Provider Mehreen CAMACHO, Dr. Pierson Other Provider Jack Sorto DO, Dr. Sapp Attending Provider Joelle BERRIOS, Dr. Sanchez Primary Care Provider Joelle BERRIOS, Dr. Sanchez Attending Provider Silvestre BERRIOS, Dr. Torres Emergency Provider Joelle BERRIOS, Dr. Sanchez Primary Care Provider Joelle BERRIOS, Dr. Sanchez Attending Provider [phone] Dr. Holger Del Valle MD Attending Provider Dr. Senait Dick DO Referring Provider Silvestre BERRIOS, Dr. Torres Attending Provider Luanne Buchanan Attending Provider Andreea RESEARCH EXECUTIVE-C, Brandie Referring Provider Andreea RESEARCH EXECUTIVE-C, Brandie Other Provider [phone] Dr. Mauro Parker DO Attending Provider Dr. Senait Dick DO Other Provider Joelle BERRIOS, Dr. Sanchez Primary Care Provider Joelle BERRIOS, Dr. Sanchez Referring Provider [phone] Lucian BERRIOS, Dr. Alfredo Attending Provider 1([facility]) -[phone] Lucian BERRIOS, Dr. Alfredo Referring Provider 1([facility]) -[phone] Andreea RESEARCH EXECUTIVE-C, Brandie Attending Provider Sheri BERRIOS, Dr. Jiménez Attending Provider 1([facility])[phone] Keri RESEARCH EXECUTIVE-C, Joanna Other Provider 1([facility])[phone] Ian RESEARCH EXECUTIVE-C, Chapo Other Provider 1([facility])[phone] Mel BERRIOS, Dr. Salas Other Provider 1([facility])[phone] Joelle BERRIOS, Dr. Sanchez Primary Care Provider Joelle BERRIOS, Dr. Sanchez Referring Provider Jack Sorto DO, Dr. Sapp Attending Provider Sheri BERRIOS, Dr. Jiménez Attending Provider 1([facility])[phone] Lucian BERRIOS, Dr. Alfredo Attending Provider Lucian BERRIOS, Dr. Alfredo Referring Provider [phone] Ranney, Christopher Primary Care Unavailable Mauro Parker Attending Unavailable Andreea RESEARCH EXECUTIVE, Brandie Consulting Unavailable Doran RESEARCH EXECUTIVE, Brandie Referring Unavailable Ranney, Christopher Referring Unavailable Ranney, Daniel Attending Unavailable Ranney, Christopher Primary Care Unavailable Keri RESEARCH EXECUTIVE, Joanna Consulting Unavailable Ranney, Christopher Primary Care Unavailable Lucian, Chester Referring Unavailable Lucian, Chester Attending Unavailable Neves RESEARCH EXECUTIVE, Chapo Consulting Unavailable Prah, Josue Consulting Unavailable Ranney, Christopher Attending Unavailable Ranney, Christopher Primary Care Unavailable Ranney, Christollieer Attending Unavailable Ranney, Christopher Primary Care Unavailable Zimjosué RESEARCH EXECUTIVE, Joanna Consulting Unavailable Ranney, Christopher Primary Care Unavailable Lucian, Juni Referring Unavailable Lucian, Juni Attending Unavailable Neves RESEARCH EXECUTIVE, Chapo Consulting Unavailable Prah, Josue Consulting Unavailable Lucian, Chester Referring Unavailable Zimjosué RESEARCH EXECUTIVE, Joanna Consulting Unavailable Ranney, Christopher Primary Care Unavailable Juni Epstein Attending Unavailable Ian RESEARCH EXECUTIVE, Chapo Consulting Unavailable PrahJosue Consulting Unavailable [facility] Primary Care Unavailable Senait Dick Attending Unavailabl e Vande Velde, Senait Referring Unavailabl e [facility] Primary Care Unavailable Ian RESEARCH EXECUTIVE, Chapo Attending Unavailable Ian RESEARCH EXECUTIVE, Chapo Referring [facility] Unavailable [facility] Primary Care Unavailable Senait Dick Attending Unavailabl e Vande Velde, Senait Referring Unavailabl e Vande Velde, Senait Consulting Unavailabl e [facility], [place] Referring Unavailable [facility] Primary Care Unavailable Josue Leal Attending Unavailable [facility], [place] Referring Unavailable [facility] Unavailable Jessy Wade Attending Unavailable [facility], [place] Referring Unavailable [facility] Unavailable Senait Dick [facility]ending [facility] [place] Referring Unavailable [facility] Unavailable Luanne Buchanan Attending Unavail able [facility] Unavailable Prah, Josue Referring Unavailable PraJosue landon Attending Unavailable [facility] Unavailable Brian Rivers Attending Unavailable [facility] Unavailable Andreea DALY, Brandie Attending Unavailable Andreea RESEARCH EXECUTIVE, Brandie Referring Unavailable Dangelo Verde Unavailable [facility], [place] Referring Unavailable [facility] Unavailable Josue Leal Attending Unavailable [facility] Primary Care Unavailable Juni Epstein Attending Unavailable [facility] Primary Care Unavailable Galina Dickfer Referring Unavailabl Holger Esquivel Attending [facility] Attending Unavailable [facility] Primary Care Unavailable Juni Epstein Referring Unavailable Keri RESEARCH EXECUTIVE, Jaonna Consulting Unavailable [facility] Unavailable Juni Epstein Attending Unavailable Ian RESEARCH EXECUTIVE, Chapo Consulting Unavailable Prah Josue Consulting Unavailable [facility] Referring Unavailable [facility] Unavailable Ian RESEARCH EXECUTIVE, Chapo Attending Unavailable [facility] Un[facility] Referring Unavailable VandSenait Martínez Attending Unavailabl e [place] Referring Unavailable [facility] [place] [facility] Unavailable Josue Leal Attending Unavailable Daniel Lai Referring [facility] Unavailable Andreea RESEARCH EXECUTIVE, Brandie Attending Unavailable [facility] Primary [facility] Unavailable Daniel Lai Referring Unavailable Senait Dick Attending Unavailnimo [place], [place] Primary Care Unavailable LucianJuni beckman Attending Unavailable Lucian, Juni Referring Unavailable Lucian, Chester Referring Unavailable Keri RESEARCH EXECUTIVE, Joanna Consulting Unavailable Joelle [facility] Unavailable Lucian, Juni Attending Unavailable Ian RESEARCH EXECUTIVE, Chapo Consulting Unavailable Josue Leal Consulting Unavailable Medications Current Medications Medication Drug Class(es) Dates Sig (Normalized) Sig (Original) acetaminophen 500 mg oral tablet (20 sources) Start: 11-09-2022 take 2 tablets by mouth once Acetaminophen 500 mg tablet Active 1000 mg PO ONCE November 09, 2022 9:54am Start: 11-09-2022 take 1000 mg by mouth once Guido taminophen Active 1000 MG PO ONCE November 09, 2022 9:54am Start: 03-07-2022 take 1 tablet by jaspreet th once daily Tylenol Dose : 1,000 mg = 2 tab(s), Oral, TID, not to exceed 3000 mg/day, 0 Refill(s) Start Date: 03/07/22 Status: Ordered Start: 02-19-2022 acetaminophen 500 mg oral capsule Dose : 500 mg = 1 cap(s), Oral, q4h, PRN for pain, # 60 cap(s), 0 Refill(s) Start Date: 02/19/22 Status: Ordered Start: 03-02-2017 End: 11-09-2022 take 2 tablets by mouth twice daily Acetaminophen 500 MG tablet Discontinued 1000 mg PO TWICE A DAY March 02, 2017 12:00am November 09, 2022 9:56am Start: 03-02-2017 End: 11-09-2022 take 1000 mg by mouth twice daily Acetaminophen Discontinued 1000 MG PO TWICE A DAY March 02, 2017 12:00am November 09, 2022 9:56am buPROPion 150 mg/12 hours (SR) oral tablet, extended release (2 sources) Start: 02-19-2022 take 1 tablet by mouth every hour, then take 1 tablet by mouth twice daily buPROPion 150 mg/12 hours (SR) oral tablet, extended release Dose : 150 mg = 1 tab(s), Oral, BID, 0 Refill(s) Start Date: 02/19/22 Status: Ordered calcium carbonate 1500 mg oral tablet (20 sources) Start: 11-09-2022 take 1 tablet by mouth twice daily Calcium Carbonate (Calcium 600) 600 mg calcium (1,500 mg) tablet Active 600 mg PO TWICE A DAY November 09, 2022 1:00am cholecalciferol 0.05 mg oral capsule (20 sources) Vitamin D Start: 11-09-2022 take 1 capsule by mouth twice daily Cholecalciferol (Vitamin D3) 50 mcg (2,000 unit) capsule Active 50 ug PO TWICE A DAY November 09, 2022 9:53am Start: 01-19-2021 End: 11-09-2022 take 1 capsule by mouth once daily Cholecalciferol (Vitamin D3) 50 mcg (2,000 unit) capsule Discontinued 50 ug PO DAILY January 19, 2021 1:00am November 09, 2022 9:55am Start: 03-02-2017 End: 01-19-2021 take 1 capsule by mouth once daily Cholecalciferol (Vitamin D3) 400 UNIT capsule Discontinued 400 U PO DAILY March 02, 2017 12:00am January 19, 2021 3:19pm supplement docusate sodium 50 mg / sennosides, assisted 8.6 mg oral tablet (1 source) Start: 03-07-2022 End: 03-09-2022 take 1 tablet by mouth twice daily Senokot S 50 mg-8.6 mg oral tablet Dose = 2 tab(s), Oral, BID, Take until first bowel movement, then as needed, # 20 tab(s), 0 Refill(s), Pharmacy: [facility]/pharmacy #[id number], 149.9, cm, 03/06/22 12:09:00 EDT, Height Start Date: 03/07/22 Stop Date: 03/09/22 Status: Ordered escitalopram 10 mg oral tablet (20 sources) Serotonin Reuptake Inhibitor Start: 02-26-2025 take 1 tablet by mouth once daily Escitalopram Oxalate 10 mg tablet Active 10 mg PO daily February 26, 2025 12:00am Start: 10-18-2023 End: 02-26-2025 take 4 tablets by mouth once daily Escitalopram Oxalate 5 mg tablet Discontinued 20 mg PO DAILY October 18, 2023 11:00am February 26, 2025 2:10pm Start: 10-18-2023 take 20 mg by mouth once daily Escitalopram Oxalate Active 20 MG PO DAILY October 18, 2023 11:00am Start: 08-20-2023 End: 10-18-2023 take 1 tablet by mouth once daily Escitalopram Oxalate 5 mg tablet Discontinued 5 mg PO DAILY August 20, 2023 12:00am October 18, 2023 11:02am Start: 04-16-2023 End: 08-20-2023 take 4 tablets by mouth once daily Escitalopram Oxalate 5 mg tablet Discontinued 20 mg PO DAILY 120 30 0 April 16, 2023 10:44am August 20, 2023 10:34am depression Start: 04-16-2023 End: 08-20-2023 take 20 mg by mouth once daily Escitalopram Oxalate Di scontinued 20 MG PO DAILY 120 30 April 16, 2023 10:44am August 20, 2023 10:34am Start: 02-19-2022 escitalopram 1 0 mg oral tablet Dose : 10 mg = 1 tab(s), Oral, Daily, 0 Refill(s) Start Date: 02/19/22 Status: Ordered Start: 02-07-2022 End: 04-16-2023 take 2 tablets by mouth once daily Escitalopram Oxalate 5 mg tablet Discontinued 10 mg PO DAILY 60 30 0 February 07, 2022 3:18pm April 16, 2023 10:45am depression Start: 02-07-2022 End: 04-16-2023 take 10 mg by mouth once daily Escitalopram Oxalate Di scontinued 10 MG PO DAILY 60 30 February 07, 2022 3:18pm April 16, 2023 10:45am Start: 12-24-2018 End: 02-07-2022 take 1 tablet by mouth once daily Escitalopram Oxalate 5 mg tablet Discontinued 5 mg PO DAILY 30 30 0 December 24, 2018 1:00am February 07, 2022 3:18pm depression gabapentin 300 mg oral capsule (20 sources) Anti-epileptic Agent Start: 12-24-2018 take 1 capsule by mouth twice daily Gabapentin 300 mg capsule Active 300 mg PO TWICE A DAY 90 30 0 December 24, 2018 1:00am pain melatonin 10 mg oral capsule (20 sources) Start: 02-19-2022 melatonin 10 m g oral capsule Dose : 10 mg = 1 cap(s), Oral, qHS, PRN for insomnia, # 90 cap(s), 0 Refill(s) Start Date: 02/19/22 Status: Ordered Start: 02-07-2022 take 10 mg by mouth at bedtime Melatonin 3 mg tablet Active 10 mg PO AT BEDTIME February 07, 2022 2:57pm sleep Start: 02-07-2022 take 10 mg by mouth at bedtime Melatonin Active 10 MG PO AT BEDTIME February 07, 2022 2:57pm Start: 03-02-2017 End: 02-07-2022 take 1 tablet by mouth at bedtime Melatonin 3 MG tablet Discontinued 3 mg PO AT BEDTIME March 02, 2017 12:00am February 07, 2022 2:57pm sleep metoprolol tartrate 25 mg oral tablet (20 sources) beta-Adrenergic Tonia Start: 05-18-2025 take 1 tablet by mouth once daily as needed Metoprolol Tartrate 25 mg tablet Active 25 mg PO .COMPLEX as needed for rapid HR 10 0 May 18, 2025 12:00am 25 mg orally as needed for rapid HR, do not take more than one a day Start: 03-07-2022 End: 03-07-2022 metoprolol succinate 50 mg o ral TABLET extended release Start: 03/07/22 8:00:00 EDT, Dose = 25 mg, = 0.5 tab(s), Oral, 0, 03/06/22 16:53:00 EDT Start Date: 03/07/22 Stop Date: 03/07/22 Status: Completed Start: 02-19-2022 Metoprolol Suc cinate ER 25 mg oral TABLET extended release Dose : 25 mg = 1 tab(s), Oral, qDay, # 90 tab(s), 0 Refill(s) Start Date: 02/19/22 Status: Ordered Start: 02-07-2022 End: 03-15-2025 Metoprolol Succinate 25 mg t ablet extended release 24 hr Discontinued 25 mg PO .COMPLEX 180 3 April 23, 2024 2:13pm March 15, 2025 9:15am afib 25 mg PO daily, may take one extra tablet daily for BP > 140 systolic or HR > 110.; Start: 02-07-2022 End: 02-07-2022 take 2 tablets by mouth once daily Metoprolol Succinate 50 mg tablet extended release 24 hr Discontinued 25 mg PO daily February 07, 2022 2:56pm February 07, 2022 3:24pm afib Start: 02-07-2022 End: 02-07-2022 take 25 mg by mouth once daily Metoprolol Succinate Di scontinued 25 MG PO daily February 07, 2022 2:56pm February 07, 2022 3:24pm Start: 12-11-2017 End: 02-07-2022 take 1 tablet by mouth once daily Metoprolol Succinate 50 mg tablet extended release 24 hr Discontinued 50 mg PO daily 90 3 February 22, 2020 9:46am August 09, 2021 10:51am afib Start: 03-02-2017 End: 12-11-2017 take 1 tablet by mouth once daily Metoprolol Succinate 25 MG tablet extended release 24 hr Discontinued 25 mg PO DAILY March 02, 2017 12:00am December 11, 2017 8:24pm Viatvrrg-Fmk-Nkdy-Fa-Lutein (14 sources) Start: 03-02-2017 Ekdygmdk-Jyu-A lje-Ie-Pskfah Active 1 EACH PO DAILY March 02, 2017 2:40pm Start: 03-02-2017 Dpqgbboo-Uom-I mvi-So-Qegcfz Active 1 EACH PO DAILY March 01, 2017 11:00pm Start: 03-02-2017 Uyllnbmz-Vpn-Z czt-Op-Fgcnea Active 1 EACH PO DAILY March 02, 2017 12:00am Zosicskv-Oqh-Gzsi-Fa-Vit K-L ut (10 sources) Start: 03-02-2017 Vuchzsuv-Djm-I aruna-Fa-Vit K-Lut Active 1 EACH PO DAILY March 01, 2017 11:00pm Start: 03-02-2017 Bhyblvdc-Wsl-L aruna-Fa-Vit K-Lut Active 1 EACH PO DAILY March 02, 2017 12:00am Hkbyfxtm-Blh-Yoie-Fa-Vit K-Lut 1 EACH tablet (10 sources) Start: 03-02-2017 take 1 tablet by mouth once daily Kpyrdopp-Dod-Cjqo-Fa-Vit K-Lut 1 EACH tablet Active 1 NMA PO DAILY March 02, 2017 12:00am supplement Start: 03-02-2017 take 1 tablet by jaspreet th once daily Mmtmdgqn-Bmt-Ceyg-Fa-Vit K-Lut 1 EACH tablet Active 1 NMA PO DAILY March 02, 2017 12:00am Multivitamin preparation (2 sources) Start: 02-19-2022 take 1 tablet by mouth once daily Multivitamin Dose = 1 tab(s), Oral, Daily, 0 Refill(s) Start Date: 02/19/22 Status: Ordered oxyCODONE hydrochloride 5 mg oral tablet (20 sources) Opioid Agonist Start: 03-07-2022 End: 03-14-2022 take 1-2 tablets by mouth every four hours as needed for pain oxyCODONE 5 mg oral tablet ( IMMEDIATE release ) See Instructions, PRN as needed for pain, 1-2 tab(s) Oral q4h, # 56 tab(s), 0 Refill(s), 03/14/22 7:38:00 EDT, Pharmacy: [facility]/pharmacy #[id number], S/p reverse total shoulder arthroplasty, 149.9, cm, 03/06/22 12:09:00 EDT, Height, 97.7 Start Date: 03/07/22 Stop Date: 03/14/22 Status: Ordered Start: 03-06-2017 End: 12-24-2018 take 1 tablet by mouth every four hours as needed for pain Oxycodone 5 MG tablet Discontinued 5 mg PO EVERY 4 HOURS NEEDED as needed for Severe Pain (6-10/10) 10 0 March 06, 2017 12:00am December 24, 2018 12:08pm ubidecarenone 100 mg oral tablet (20 sources) Start: 03-06-2022 take 1 dose by mouth once daily Q-Sorb Co Q-10 Dose : 100 mg =, Oral, qDay Start Date: 03/06/22 Status: Ordered Start: 08-09-2021 take 10 capsules by mouth once daily Coenzyme Q10 (Q-Sorb Co Q-10) 100 mg capsule Active 100 mg PO DAILY August 09, 2021 12:00am vitamin b6 100 mg oral tablet (20 sources) Start: 03-02-2019 End: 11-09-2022 take 1 tablet by mouth once daily Pyridoxine (Vitamin B6) 100 mg tablet Active 100 mg PO DAILY November 09, 2022 9:53am supplement Start: 03-02-2017 End: 12-24-2018 Pyridoxine (Vitamin B6) 50 M G tablet Discontinued 100 mg PO DAILY March 02, 2017 12:00am December 24, 2018 12:08pm Vitamin D3 (2 sources) Start: 02-19-2022 Vitamin D3 Dos e : 2,000 unit(s) = 1 tab(s), Oral, Daily, # 60 tab(s), 0 Refill(s) Start Date: 02/19/22 Status: Ordered Completed/Discontinued Medications Medication Drug Class(es) Dates Sig (Normalized) Sig (Original) acetaminophen 325 mg / HYDROcodone bitartrate 5 mg oral tablet (20 sources) Opioid Agonist Start: 09-15-2019 End: 10-15-2019 Hydrocodone-Acetami nophen 1 TABLET tablet Discontinued 1 {tbl} PO EVERY 6 HOURS NEEDED as needed for Pain September 15, 2019 12:00am October 15, 2019 12:36pm wrist fracture Start: 09-15-2019 End: 10-15-2019 take 1 tablet by mouth every six hours as needed Hydrocodone-Acetaminophen Discontinued 1 TABLET PO EVERY 6 HOURS NEEDED September 15, 2019 12:00am October 15, 2019 12:36pm wrist fracture acetaminophen 325 mg / oxyCODONE hydrochloride 5 mg oral tablet (20 sources) Opioid Agonist Start: 08-19-2024 End: 04-28-2025 Oxycodone-Acetaminophen 5-32 5 mg tablet Discontinued {tbl} PO 0 August 19, 2024 12:00am April 28, 2025 1:08pm Start: 03-17-2019 End: 03-23-2019 Oxycodone-Acetaminophen 1 TA BLET tablet Discontinued 1 - 2 {tbl} PO EVERY 4 HOURS NEEDED as needed for Pain 31 05March 17, 2019 12:00am March 22, 2019 12:00am March 23, 2019 12:09am Malignant neoplasm of central portion of right female breast Start: 03-17-2019 End: 03-23-2019 take 1 tablet by mouth every four hours as needed Oxycodone-Acetaminophen Discontinued 1 - 2 TABLET PO EVERY 4 HOURS NEEDED 31 05March 17, 2019 12:00am March 23, 2019 12:09am amLODIPine 5 mg oral tablet (20 sources) Dihydropyridine Calcium Channel Tonia Start: 12-12-2020 End: 01-19-2021 take 1 tablet by mouth once daily Amlodipine 5 MG tablet Discontinued 5 mg PO DAILY December 12, 2020 1:00am January 19, 2021 3:18pm amoxicillin 500 mg oral capsule (20 sources) Penicillin-class Antibacterial Start: 03-06-2017 End: 12-24-2018 take 1 capsule by mouth every eight hours Amoxicillin 500 MG capsule Discontinued 500 mg PO EVERY 8 HOURS 4 0 March 06, 2017 12:00am December 24, 2018 12:06pm atorvastatin 10 mg oral tablet (20 sources) HMG-CoA Reductase Inhibitor Start: 08-09-2021 End: 03-22-2025 take 1 tablet by mouth once daily Atorvastatin 10 mg tablet Discontinued 10 mg PO DAILY 30 3 June 16, 2024 11:39am March 22, 2025 12:30pm bisacodyl 10 mg rectal suppository (20 sources) Stimulant Laxative Start: 03-06-2017 End: 12-24-2018 take 10 mg rectal route once daily as needed for constipation Bisacodyl 10 MG suppository Discontinued 10 mg RECTAL DAILY as needed for Constipation 30 0 March 06, 2017 12:00am December 24, 2018 12:08pm buPROPion hydrochloride 100 mg oral tablet (20 sources) Aminoketone Start: 03-02-2017 End: 11-09-2022 Bupropion Hcl 100 MG tablet Discontinued 150 mg PO DAILY March 02, 2017 12:00am November 09, 2022 9:55am mood Start: 03-02-2017 End: 11-09-2022 take 150 mg by mouth once daily Bupropion Hcl Discontinued 150 MG PO DAILY March 02, 2017 12:00am November 09, 2022 9:55am celecoxib 100 mg oral capsule (18 sources) Nonsteroidal Anti-inflammatory Drug Start: 08-20-2023 End: 10-18-2023 take 1 capsule by mouth twice daily Celecoxib 100 mg capsule Discontinued 100 mg PO TWICE A DAY August 20, 2023 12:00am October 18, 2023 11:01am For 2 weeks docusate sodium 100 mg oral capsule (20 sources) Start: 03-06-2017 End: 12-24-2018 take 1 capsule by mouth twice daily Docusate Sodium 100 MG capsule Discontinued 100 mg PO TWICE A DAY 30 0 March 06, 2017 12:00am December 24, 2018 12:08pm estradiol 0.1 mg/ml vaginal cream (4 sources) Estrogen Start: 05-25-2025 End: 07-23-2025 Estradiol 0.01 % (0.1 mg/gram) cream Discontinued 1 NMA VAGINAL DAILY 42.5 0 May 25, 2025 12:00am July 23, 2025 12:45pm use a fingertip amount to the inner labia daily. ferrous sulfate 325 mg oral tablet (20 sources) Start: 03-03-2017 End: 12-24-2018 take 1 tablet by mouth once daily Ferrous Sulfate 325 MG tablet Discontinued 325 mg PO DAILY March 03, 2017 12:00am December 24, 2018 12:07pm furosemide 40 mg oral tablet (20 sources) Loop Diuretic Start: 02-01-2021 End: 03-10-2025 take 1 tablet by mouth once daily Furosemide 40 mg tablet Discontinued 40 mg PO DAILY 30 June 16, 2024 11:40am March 10, 2025 10:44am losartan potassium 100 mg oral tablet (20 sources) Angiotensin 2 Receptor Tonia Start: 10-15-2019 End: 03-22-2025 take 1 tablet by mouth once daily Losartan 100 mg tablet Discontinued 100 mg PO DAILY 30 June 16, 2024 11:40am March 22, 2025 12:30pm Start: 03-24-2019 End: 10-15-2019 Losartan 100 mg tablet Disco ntinued 50 mg PO DAILY March 24, 2019 10:50am October 15, 2019 12:36pm bp Start: 03-24-2019 End: 10-15-2019 take 50 mg by mouth once daily Losartan Discontinued 5 0 MG PO DAILY March 24, 2019 10:50am October 15, 2019 12:36pm Start: 01-06-2019 End: 03-24-2019 take 1 tablet by mouth once daily Losartan 100 MG tablet Discontinued 100 mg PO DAILY March 13, 2019 8:16am March 24, 2019 10:50am bp Start: 12-24-2018 End: 01-06-2019 take 1 tablet by mouth once daily Losartan 50 mg tablet Discontinued 50 mg PO DAILY 90 5 December 24, 2018 1:00am January 06, 2019 5:39pm [place]-3 Fatty Acids (20 sources) Start: 03-02-2017 End: 12-24-2018 take 360 mg by mouth once daily [place]-3 Fatty Acids Discontinued 360 MG PO DAILY March 02, 2017 2:40pm December 24, 2018 12:08pm Start: 03-02-2017 End: 12-24-2018 take 360 mg by mouth once daily Rosenhayn-3 Fatty Acids Discontinued 360 MG PO DAILY March 01, 2017 11:00pm December 24, 2018 11:08am Start: 03-02-2017 End: 12-24-2018 take 360 mg by mouth once daily Rosenhayn-3 Fatty Acids Discontinued 360 MG PO DAILY March 02, 2017 12:00am December 24, 2018 12:08pm Rosenhayn-3 Fatty Acids 300 MG capsule (10 sources) Start: 03-02-2017 End: 12-24-2018 take 1 capsule by mouth once daily Rosenhayn-3 Fatty Acids 300 MG capsule Discontinued 360 mg PO DAILY March 02, 2017 12:00am December 24, 2018 12:08pm tamoxifen 20 mg oral tablet (20 sources) Estrogen Agonist/Antagonis t Start: 06-09-2019 End: 07-23-2025 take 1 tablet by mouth once daily Tamoxifen 20 mg tablet Discontinued 20 mg PO DAILY 90 3 May 14, 2024 8:39am September 14, 2024 11:59am traMADol hydrochloride 50 mg oral tablet (20 sources) Opioid Agonist Start: 02-07-2022 End: 11-09-2022 take 1 tablet by mouth twice daily as needed Tramadol 50 mg tablet Discontinued 50 mg PO TWICE A DAY as needed February 07, 2022 1:00am November 09, 2022 9:55am Vitamin B6 100 mg oral tablet (1 source) Start: 02-19-2022 End: 03-05-2022 Vitamin B6 100 mg oral tablet Dose : 100 mg = 1 tab(s), Oral, Daily, # 14 tab(s), 0 Refill(s) Start Date: 02/19/22 Stop Date: 03/05/22 Status: Ordered warfarin sodium 3 mg oral tablet (20 sources) Vitamin K Antagonist Start: 04-23-2024 End: 03-08-2025 take 0.5 tablet by mouth every week as needed Warfarin 3 mg tablet Discontinued 3 mg PO .COMPLEX 90 June 16, 2024 11:40am March 08, 2025 1:16pm 3 mg orally Every Saturday and Saturday: take 1/2 tablet all other days of the week OR as directed. Please give extra tablets for PRN dose changes. Please contact the information source for Protocol details. Start: 08-29-2019 End: 04-23-2024 Warfarin 3 mg tablet Discont inued 3 mg PO DAILY 90 3 February 17, 2024 10:48am March 16, 2024 11:39am 3mg Mon and and 1.5mg Jkk-Ggozh-Pwe-Sat-Sun; or use as directed Start: 08-29-2019 End: 04-23-2024 Warfarin 3 mg tablet Discont inued 1.5 mg PO .WTHFRSA 60 3 October 16, 2022 2:20pm April 23, 2024 2:15pm Please contact the information source for Protocol details. Start: 08-29-2019 End: 10-16-2022 Warfarin Discontinued 1.5 MG PO TUWETHFRSA 60 January 19, 2021 3:24pm October 16, 2022 2:20pm Start: 03-25-2019 End: 08-29-2019 take 0.5 tablet by mouth every month Warfarin 3 mg tablet Discontinued 3 mg P O .COMPLEX 90 3 June 30, 2019 4:43pm August 29, 2019 1:57pm afib 3 mg PO Mo, , Sat and 0.5 tablets (1.5 mg) , , Sat and Sun Please contact the information source for Protocol details. Start: 03-13-2019 End: 03-25-2019 Warfarin 3 MG tablet Discont inued 3 mg PO MOWEFR March 13, 2019 8:20am March 25, 2019 10:36am afib Please contact the information source for Protocol details. Start: 03-13-2019 End: 03-25-2019 take 1.5 mg by mouth once Warfarin 3 MG tablet Discont inued 1.5 mg PO every Saturday, Tues, Thurs, Sat March 13, 2019 12:00am March 25, 2019 10:36am afib Start: 03-13-2019 End: 03-25-2019 take 1.5 mg by mouth once Warfarin Discontinued 1.5 MG PO every Saturday, Tues, Thurs, Sat March 13, 2019 12:00am March 25, 2019 10:36am Start: 12-26-2017 End: 03-13-2019 Warfarin 3 mg tablet Discont inued 3 mg PO .COMPLEX 90 3 May 26, 2018 11:38am March 13, 2019 8:20am 3 mg PO Saturday through Saturday: take 0.5 tablets (1.5 mg) on Sat,Sat, Sat; and 1 tablet by mouth the other days Please contact the information source for Protocol details. Start: 03-02-2017 End: 12-26-2017 Warfarin 2.5 MG tablet Disco ntinued 2.5 mg PO MOTUWETHFR March 02, 2017 12:00am December 26, 2017 11:32am Please contact the information source for Protocol details. Start: 03-02-2017 End: 12-26-2017 Warfarin 3 MG tablet Discont inued 3 mg PO SUSA March 02, 2017 12:00am December 26, 2017 11:33am Please contact the information source for Protocol details. Problems Active Problems Problem Classification Problem Date Documented Da te Episodic/Chronic Administrative/social admission (20 sources) Patient encounter status; Translations: [Counseling, unspecified] Episodic Anxiety disorders (1 source) Anxiety disorder; Translations: [Anxiety disorder, unspecified] Onset: 03-06-2022 Chronic Aortic; peripheral; and visceral artery aneurysms (12 sources) Aortic root dilatation; Translations: [Thoracic aortic ectasia] 05-18-2025 Chronic Cancer of breast (20 sources) Malignant tumor of breast ; Translations: [Malignant neoplasm of unspecified site of right female breast] Onset: 03-31-2025 Chronic Cancer of breast (20 sources) History of malignant neoplasm of breast; Translations: [Personal history of malignant neoplasm of breast] Onset: 04-06-2025 Episodic Comment on above: Right Breast Cancer stage IA(pT1c pN0 M0), ER/AL positive, Her2 negative on adjuvant Tamoxifen.Tumor size 2cm, Lymph nodes negative.S/P Right breast lumpectomy and sentinel node biopsy.Finished Adjuvant Radiation therapy on 05/20/2019.Started Adjuvant Tamoxifen on 06/09/2020. CT 06/13/2021 shows non specific lung nodules which are stable.Comes for follow up.Labs reviewed.No evidence of disease clinically Cardiac dysrhythmias (20 sources) Paroxysmal atrial flutter; Translations: [Unspecified atrial flutter] Onset: 03-06-2022 Chronic Comment on above: RFA 03/20/2011 Chronic kidney disease (7 sources) Chronic kidney disease; Translations: [Chronic kidney disease, unspecified] 05-01-2025 Chronic Conditions associated with dizziness or vertigo (20 sources) Lightheadedness; Translations: [Dizziness and giddiness] 10-14-2019 Episodic Deficiency and other anemia (7 sources) Chronic anemia; Translations: [Anemia, unspecified] 05-01-2025 Episodic Diabetes mellitus without complication (1 source) Type 2 diabetes mellitus without complication; Translations: [Type 2 diabetes mellitus without complications] Onset: 03-06-2022 Chronic Disorders of lipid metabolism (20 sources) Hyperlipidemia; Translations: [Hyperlipidemia, unspecified] Onset: 11-19-2024 Chronic E Codes: Fall (20 sources) Fall; Translations: [Unspecified fall, initial encounter] 08-30-2019 Episodic Essential hypertension (20 sources) Essential hypertension; Translations: [Essential (primary) hypertension] Onset: 03-06-2022 Chronic Genitourinary symptoms and ill-defined conditions (3 sources) Urge incontinence of urine; Translations: [Urge incontinence] Onset: 08-16-2025 08-16-2025 Chronic Genitourinary symptoms and ill-defined conditions (2 sources) Retention of urine; Translations: [Retention of urine, unspecified] 08-16-2025 Episodic Heart valve disorders (1 source) Nonrheumatic aortic (valve) insufficiency; Translations: [Nonrheumatic aortic (valve) insufficiency] Onset: 03-31-2025 Chronic Intracranial injury (20 sources) Traumatic brain injury with brief loss of consciousness; Translations: [Traumatic brain injury with brief loss of consciousness] 09-19-2019 Episodic Malaise and fatigue (20 sources) Fatigue; Translations: [Other fatigue] 10-14-2019 Episodic Menopausal disorders (20 sources) Postmenopausal bleeding; Translations: [Postmenopausal bleeding] Onset: 06-24-2025 04-06-2025 Chronic Nonspecific chest pain (20 sources) Chest pain; Translations: [Chest pain, unspecified] 10-14-2019 Episodic Nutritional deficiencies (1 source) Vitamin D deficiency, unspecified; Translations: [Vitamin D deficiency, unspecified] Onset: 08-24-2025 Chronic Osteoporosis (20 sources) Osteoporosis; Translations: [Age-related osteoporosis without current pathological fracture] Onset: 03-31-2025 Chronic Other aftercare (20 sources) Long-term current use of anticoagulant; Translations: [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s] 01-19-2021 Episodic Other circulatory disease (7 sources) H/O: atrial fibrillation; Translations: [Personal history of other diseases of the circulatory system] 05-01-2025 Episodic Other connective tissue disease (1 source) Shoulder joint prosthesis present; Translations: [Presence of unspecified artificial shoulder joint] Onset: 03-06-2022 Chronic Other female genital disorders (20 sources) Vaginal mass; Translations: [Other specified noninflammatory disorders of vagina] 04-06-2025 Episodic Other female genital disorders (1 source) Other specified noninflammatory disorders of vagina; Translations: [Other specified noninflammatory disorders of vagina] Onset: 06-07-2025 Episodic Other gastrointestinal disorders (2 sources) Constipation; Translations: [Constipation, unspecified] 08-16-2025 Episodic Other lower respiratory disease (20 sources) Multiple nodules of lung; Translations: [Other nonspecific abnormal finding of lung field] 06-15-2021 Episodic Comment on above: Clinically stable fo r 2 yrs, Other lower respiratory disease (20 sources) Dyspnea; Translations: [Dyspnea, unspecified] 04-24-2022 Episodic Other lower respiratory disease (8 sources) Dyspnea, unspecified; Translations: [Other respiratory abnormalities] Onset: 06-07-2025 Episodic Other lower respiratory disease (4 sources) Shortness of breath; Translations: [Shortness of breath] Episodic Other nutritional; endocrine; and metabolic disorders (20 sources) Obesity; Translations: [Obesity, unspecified] 08-13-2022 Chronic Other nutritional; endocrine; and metabolic disorders (4 sources) Obesity, unspecified; Translations: [Obesity, unspecified] 09-26-2023 Chronic Pulmonary heart disease (20 sources) Secondary pulmonary hypertension; Translations: [Secondary pulmonary hypertension] Chronic Residual codes; unclassified (20 sources) Obstructive sleep apnea syndrome; Translations: [Obstructive sleep apnea (adult) (pediatric)] 07-23-2022 Chronic Comment on above: AHI 47.9. Residual codes; unclassified (11 sources) Obstructive sleep apnea (adult) (pediatric); Translations: [Obstructive sleep apnea (adult)(pediatric)] Onset: 04-06-2025 Chronic Spondylosis; intervertebral disc disorders; other back problems (20 sources) Backache; Translations: [Dorsalgia, unspecified] 05-12-2019 Episodic Sprains and strains (20 sources) Sprain of wrist; Translations: [Unspecified sprain of left wrist, initial encounter] 08-30-2019 Episodic Superficial injury; contusion (20 sources) Contusion of elbow; Translations: [Contusion of unspecified elbow, initial encounter] 08-30-2019 Episodic Syncope (20 sources) Near syncope; Translations: [Syncope and collapse] 09-15-2022 Episodic Past or Other Problems Problem Classification Problem Date Documented Da te Episodic/Chronic Cardiac dysrhythmias (8 sources) Palpitations; Translations: [Palpitations] Onset: 05-07-2025 05-01-2025 Episodic Other aftercare (1 source) 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s; Translations: [intermediate (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 of anticoagulants] Onset: 04-06-2025 Episodic Other lower respiratory disease (20 sources) Other nonspecific abnormal finding of lung field; Translations: [Other nonspecific abnormal finding of lung field] Onset: 04-06-2025 Episodic Other screening for suspected conditions (not mental disorders or infectious disease) (1 source) Encounter for screening mammogram for malignant neoplasm of breast; Translations: [Encounter for screening mammogram for malignant neoplasm of breast] Onset: 11-12-2024 Episodic Residual codes; unclassified (1 source) Estrogen receptor positive status [ER+]; Translations: [Estrogen receptor positive status [ER+]] Onset: 04-06-2025 Episodic Results Test Name Value Interpretation Reference Range Facility Prothrombin Time w/INRon INR Normal [facility] Comment on above: Result Comment: KENJI ERSTICK Performed By: #### L 9200.0000 #### [facility] Laboratory [address] [place], [place], [id number] PROTIME Normal 11.7-14.9 [facility] Comment on above: Result Comment: KENJI ERSTICK Performed By: #### L 9200.0000 #### [facility] Laboratory [address] [place], [place], [id number] Protime w/INR Fingerstickon 08-24-2025 INR Coag (PPP) [Relative time] 2.7 {INR} Normal [facility] Comment on above: Result Comment: Crit ical Value > 4.0 Performed By: #### L 9200.0000 ####[facility] [address] [place], [address] Protime Coagsen 28.2 SEC High 11.7-14.9 [facility] Comment on above: Performed By: #### L 9200.0000 ####[facility] [address] [place], [address] CBC W/Diff, Automatedon 08-02 Absolute Lymph 1.92 X10 3/uL Normal 0.83-4.51 [facility] Comment on above: Order Comment: Order Date: 08/16/25Order Info: [id number] - CBCDINR RESULTS GO TO Performed By: #### L 500.4100, L500.4050, L100.0100, L501.9520 ####[facility] [address] [place], [address] Absolute Neut 2.7 X10 3/uL Normal 2.0-7.7 [facility] Comment on above: Order Comment: Order Date: 08/16/25Order Info: [id number] - CBCDINR RESULTS GO TO Performed By: #### L 500.4100, L500.4050, L100.0100, L501.9520 ####[facility] [address] [place], [address] Basophils/100 WBC (Bld) 0.8 % Normal 0-1 [facility] Comment on above: Order Comment: Order Date: 08/16/25Order Info: [id number] - CBCDINR RESULTS GO TO Performed By: #### L 500.4100, L500.4050, L100.0100, L501.9520 ####[facility] [address] [place], [address] Eosinophils/100 WBC (Bld) 4.6 % Normal 0-5 [facility] Comment on above: Order Comment: Order Date: 08/16/25Order Info: [id number] - CBCDINR RESULTS GO TO Performed By: #### L 500.4100, L500.4050, L100.0100, [id number] ####[facility] [address] [place], [address] Erythrocyte distribution width (RBC) [Ratio] 13.8 % Normal 11.6-14.6 [facility] Comment on above: Order Comment: Order Date: 08/16/25Order Info: [id number] - CBCDINR RESULTS GO TO Performed By: #### L 500.4100, L500.4050, L100.0100, L501.9520 ####[facility] [address] [place], [address] Hematocrit (Bld) [Volume fraction] 34.9 % Low 37-47 [facility] Comment on above: Order Comment: Order Date: 08/16/25Order Info: [id number] - CBCDINR RESULTS GO TO Performed By: #### L 500.4100, L500.4050, L100.0100, [id number] ####[facility] [address] [place], [address] Hemoglobin (Bld) [Mass/Vol] 11.3 g/dL Low 12.0-15.0 [facility] Comment on above: Order Comment: Order Date: 08/16/25Order Info: [id number] - CBCDINR RESULTS GO TO Performed By: #### L 500.4100, L500.4050, L100.0100, [id number] ####[facility] [address] [place], [address] IG% 0.200 Normal 0.0-0.9 [facility] Comment on above: Order Comment: Order Date: 08/16/25Order Info: [id number] - CBCDINR RESULTS GO TO Result Comment: IG% - Immature Granulocytes (promyelocytes, myelocytes and metamyelocytes) > 1% indicates that a LEFT SHIFT is Present. Performed By: #### L 500.4100, L500.4050, L100.0100, [id number] ####[facility] [address] [place], [address] Lymphocytes/100 WBC (Bld) 36.5 % Normal 19-41 [facility] Comment on above: Order Comment: Order Date: 08/16/25Order Info: [id number] - CBCDINR RESULTS GO TO Performed By: #### L 500.4100, L500.4050, L100.0100, [id number] ####[facility] [address] [place], [address] MCH (RBC) [Entitic mass] 31.6 pg Normal 27.0-32.0 [facility] Comment on above: Order Comment: Order Date: 08/16/25Order Info: [id number] - CBCDINR RESULTS GO TO Performed By: #### L 500.4100, L500.4050, L100.0100, [id number] ####[facility] [address] [place], [address] MCHC (RBC) [Mass/Vol] 32.4 g/dL Normal 32-36 [facility] Comment on above: Order Comment: Order Date: 08/16/25Order Info: [id number] - CBCDINR RESULTS GO TO Performed By: #### L 500.4100, L500.4050, L100.0100, [id number] ####[facility] [address] [place], [address] MCV (RBC) [Entitic vol] 97.5 fL Normal 81-99 [facility] Comment on above: Order Comment: Order Date: 08/16/25Order Info: 018- - CBCDINR RESULTS GO TO Performed By: #### L 500.4100, L500.4050, L100.0100, [id number] ####[facility] [address] [place], [address] Monocytes/100 WBC (Bld) 6.3 % Normal 0-10 [facility] Comment on above: Order Comment: Order Date: 08/16/25Order Info: 018- - CBCDINR RESULTS GO TO Performed By: #### L 500.4100, L500.4050, L100.0100, [id number] ####[facility] [address] [place], [address] Neutrophils/100 WBC (Bld) 51.6 % Normal 47-70 [facility] Comment on above: Order Comment: Order Date: 08/16/25Order Info: 018- - CBCDINR RESULTS GO TO Performed By: #### L 500.4100, L500.4050, L100.0100, [id number] ####[facility] [address] [place], [address] Nucleated RBC (Bld) [#/Vol] 0 10*3/uL Normal 0-5 [facility] Comment on above: Order Comment: Order Date: 08/16/25Order Info: 018- - CBCDINR RESULTS GO TO Performed By: #### L 500.4100, L500.4050, L100.0100, [id number] ####[facility] [address] [place], [address] Platelet mean volume (Bld) [Entitic vol] 9.6 fL Normal 6.2-12.0 [facility] Comment on above: Order Comment: Order Date: 08/16/25Order Info: 018- - CBCDINR RESULTS GO TO Performed By: #### L 500.4100, L500.4050, L100.0100, [id number] ####[facility] [address] [place], [address] Platelets (Bld) [#/Vol] 219 10*3/uL Normal 150-450 [facility] Comment on above: Order Comment: Order Date: 08/16/25Order Info: 018- - CBCDINR RESULTS GO TO Performed By: #### L 500.4100, L500.4050, L100.0100, [id number] ####[facility] [address] [place], [address] RBC (Bld) [#/Vol] 3.58 10*6/uL Low 4.2-5.4 [facility] Comment on above: Order Comment: Order Date: 08/16/25Order Info: 018- - CBCDINR RESULTS GO TO Performed By: #### L 500.4100, L500.4050, L100.0100, [id number] ####[facility] [address] [place], [address] RDW SD 49.4 fl High 35.1-43.9 [facility] Comment on above: Order Comment: Order Date: 08/16/25Order Info: 018- - CBCDINR RESULTS GO TO Performed By: #### L 500.4100, L500.4050, L100.0100, [id number] ####[facility] [address] [place], [address] WBC (Bld) [#/Vol] 5.3 10*3/uL Normal 4.4-11.0 [facility] Comment on above: Order Comment: Order Date: 08/16/25Order Info: 018- - CBCDINR RESULTS GO TO Performed By: #### L 500.4100, L500.4050, L100.0100, [id number] ####[facility] [address] [place], [address] Comprehensive Metabolic Prof ilon 08-17-2025 Albumin [Mass/Vol] 3.9 g/dL Normal 3.4-4.8 [facility] Comment on above: Order Comment: Order Date: 08/16/25Order Info: [id number] - CMPOrder Info: [id number] - LIPIDOrder Info: [id number] - TSHINR RESULTS GO TO DR Performed By: #### L 9200.0000 #### [facility] Laboratory [address] [place], [place], [address] Albumin/Globulin [Mass ratio] 1.4 {ratio} Normal 0.9-2.4 [facility] Comment on above: Order Comment: Order Date: 08/16/25Order Info: [id number] - CMPOrder Info: [id number] - LIPIDOrder Info: [id number] - TSHINR RESULTS GO TO DR Performed By: #### L 9200.0000 #### [facility] Laboratory [address] [place], [address] ALK PHOS 41 U/L Normal 35-104 [facility] Comment on above: Order Comment: Order Date: 08/16/25Order Info: [id number] - CMPOrder Info: [id number] - LIPIDOrder Info: [id number] - TSHINR RESULTS GO TO DR Performed By: #### L 9200.0000 #### [facility] Laboratory [address] [place], [address] ALT [Catalytic activity/Vol] 14 U/L Normal <=34 [facility] Comment on above: Order Comment: Order Date: 08/16/25Order Info: [id number] - CMPOrder Info: [id number] - LIPIDOrder Info: [id number] - TSHINR RESULTS GO TO DR Performed By: #### L 9200.0000 #### [facility] Laboratory [address] [place], [address] AST [Catalytic activity/Vol] 24 U/L Normal <=31 [facility] Comment on above: Order Comment: Order Date: 08/16/25Order Info: [id number] - CMPOrder Info: [id number] - LIPIDOrder Info: [id number] - TSHINR RESULTS GO TO DR Performed By: #### L 9200.0000 #### [facility] Laboratory [address] [place], [address] Bilirubin [Mass/Vol] 0.27 mg/dL Normal 0.00-1.30 [facility] Comment on above: Order Comment: Order Date: 08/16/25Order Info: [id number] - CMPOrder Info: [id number] - LIPIDOrder Info: [id number] - TSHINR RESULTS GO TO DR Performed By: #### L 9200.0000 #### [facility] Laboratory [address] [place], [address] BUN/CRE 16.0 RATIO Normal 10-20 [facility] Comment on above: Order Comment: Order Date: 08/16/25Order Info: [id number] - CMPOrder Info: [id number] - LIPIDOrder Info: [id number] - TSHINR RESULTS GO TO DR Performed By: #### L 9200.0000 #### [facility] Laboratory [address] [place], [address] Calcium [Mass/Vol] 9.1 mg/dL Normal 7.6-11.0 [facility] Comment on above: Order Comment: Order Date: 08/16/25Order Info: [id number] - CMPOrder Info: [id number] - LIPIDOrder Info: [id number] - TSHINR RESULTS GO TO DR Performed By: #### L 9200.0000 #### [facility] Laboratory [address] [place], [address] Chloride [Moles/Vol] 104 mmol/L Normal 98-108 [facility] Comment on above: Order Comment: Order Date: 08/16/25Order Info: [id number] - CMPOrder Info: [id number] - LIPIDOrder Info: [id number] - TSHINR RESULTS GO TO DR Performed By: #### L 9200.0000 #### [facility] Laboratory [address] [place], [place], [address] CO2 [Moles/Vol] 26.9 mmol/L Normal 21.0-32.0 [facility] Comment on above: Order Comment: Order Date: 08/16/25Order Info: [id number] - CMPOrder Info: [id number] - LIPIDOrder Info: [id number] - TSHINR RESULTS GO TO DR Performed By: #### L 9200.0000 #### [facility] Laboratory [address] [place], [place], [address] Creatinine [Mass/Vol] 1.20 mg/dL Normal 0.70-1.20 [facility] Comment on above: Order Comment: Order Date: 08/16/25Order Info: [id number] - CMPOrder Info: [id number] - LIPIDOrder Info: [id number] - TSHINR RESULTS GO TO DR Performed By: #### L 9200.0000 #### [facility] Laboratory [address] [place], [place], [address] GAP 10 Normal 5-15 [facility] Comment on above: Order Comment: Order Date: 08/16/25Order Info: [id number] - CMPOrder Info: [id number] - LIPIDOrder Info: [id number] - TSHINR RESULTS GO TO DR Performed By: #### L 9200.0000 #### [facility] Laboratory [address] [place], [place], [address] GFR/1.73 sq M.predicted among non-blacks MDRD (S/P/Bld) [Vol rate/Area] 45 mL/min/{1.73_m2} Low >60 [facility] Comment on above: Order Comment: Order Date: 08/16/25Order Info: [id number] - CMPOrder Info: [id number] - LIPIDOrder Info: [id number] - TSHINR RESULTS GO TO DR Result Comment: mL/m in/1.73m2 CKD-EPI Creatinine Equation (2020) Performed By: #### L 9200.0000 #### [facility] [address] [place], [address] Globulin (S) [Mass/Vol] 2.7 g/dL Normal 2.2-4.2 [facility] Comment on above: Order Comment: Order Date: 08/16/25Order Info: [id number] - CMPOrder Info: [id number] - LIPIDOrder Info: [id number] - TSHINR RESULTS GO TO DR Performed By: #### L 9200.0000 #### [facility] [address] [place], [address] Glucose [Mass/Vol] 122 mg/dL High 70-99 [facility] Comment on above: Order Comment: Order Date: 08/16/25Order Info: [id number] - CMPOrder Info: [id number] - LIPIDOrder Info: [id number] - TSHINR RESULTS GO TO DR Performed By: #### L 9200.0000 #### [facility] [address] [place], [address] Potassium [Moles/Vol] 4.5 mmol/L Normal 3.3-5.1 [facility] Comment on above: Order Comment: Order Date: 08/16/25Order Info: [id number] - CMPOrder Info: [id number] - LIPIDOrder Info: [id number] - TSHINR RESULTS GO TO DR Performed By: #### L 9200.0000 #### [facility] [address] [place], [address] Sodium [Moles/Vol] 141 mmol/L Normal 133-145 [facility] Comment on above: Order Comment: Order Date: 08/16/25Order Info: [id number] - CMPOrder Info: [id number] - LIPIDOrder Info: [id number] - TSHINR RESULTS GO TO DR Performed By: #### L 9200.0000 #### [facility] [address] [place], [address] T PROT 6.6 g/dL Normal 5.9-8.4 [facility] Comment on above: Order Comment: Order Date: 08/16/25Order Info: [id number] - CMPOrder Info: [id number] - LIPIDOrder Info: [id number] - TSHINR RESULTS GO TO DR Performed By: #### L 9200.0000 #### [facility] [address] [place], [place], [address] Urea nitrogen [Mass/Vol] 19 mg/dL Normal 4-19 [facility] Comment on above: Order Comment: Order Date: 08/16/25Order Info: [id number] - CMPOrder Info: [id number] - LIPIDOrder Info: [id number] - TSHINR RESULTS GO TO DR Performed By: #### L 9200.0000 #### [facility] [address] [place], [place], [address] Lipid Profileon 08-17-2025 CHOL:HDL 2.65 Normal [facility] Comment on above: Order Comment: Order Date: 08/16/25Order Info: [id number] - CMPOrder Info: [id number] - LIPIDOrder Info: [id number] - TSHINR RESULTS GO TO DR Performed By: #### L 9200.0000 #### [facility] [address] [place], [place], [address] (782) Cholesterol [Mass/Vol] 136 mg/dL Normal <=200 [facility] Comment on above: Order Comment: Order Date: 08/16/25Order Info: [id number] - CMPOrder Info: [id number] - LIPIDOrder Info: [id number] - TSHINR RESULTS GO TO DR Result Comment: Chol esterol level, Desirable <200 mg/dL Borderline high cholesterol 200-239 mg/dL High cholesterol >=240 mg/dL Recommendations of the NCEP Adult Treatment Panel for the following risk-cutoff thresholds for the [place] population. Performed By: #### L 9200.0000 #### [facility] [address] [place], [address] Cholesterol in HDL [Mass/Vol] 51 mg/dL Normal [facility] Comment on above: Order Comment: Order Date: 08/16/25Order Info: [id number] - CMPOrder Info: [id number] - LIPIDOrder Info: [id number] - TSHINR RESULTS GO TO DR Result Comment: Maggy onal Cholesterol Education Program (NCEP) guidelines: <40 mg/dL: Low HDL-cholesterol (major risk factor for CHD) >= 60 mg/dL: High HDL-cholesterol (negative risk factor for CHD) HDL-cholesterol is affected by a number of factors, e.g. smoking, exercise, hormones, sex and age. Performed By: #### L 9200.0000 #### [facility] [address] [place], [address] Cholesterol in LDL [Mass/Vol] 65 mg/dL Normal [facility] Comment on above: Order Comment: Order Date: 08/16/25Order Info: [id number] - CMPOrder Info: [id number] - LIPIDOrder Info: [id number] - TSHINR RESULTS GO TO DR Result Comment: Bord isjffu=944-934 mg/dL Higher Eyqw=191 mg/dL or greater Friedwald Equation for LDL-C Performed By: #### L 9200.0000 #### [facility] [address] [place], [address] Cholesterol in VLDL [Mass/Vol] 20 mg/dL Normal 5-40 [facility] Comment on above: Order Comment: Order Date: 08/16/25Order Info: [id number] - CMPOrder Info: [id number] - LIPIDOrder Info: [id number] - TSHINR RESULTS GO TO DR Performed By: #### L 9200.0000 #### [facility] [address] [place], [address] Triglyceride [Mass/Vol] 100 mg/dL Normal [facility] Comment on above: Order Comment: Order Date: 08/16/25Order Info: [id number] - CMPOrder Info: [id number] - LIPIDOrder Info: [id number] - TSHINR RESULTS GO TO DR Result Comment: The drugs N-Acetylcysteine and Metamizole may falsely depress this assay. Normal range: <150 mg/dL Borderline High: 150-199 mg/dL High: 200-499 mg/dL Very High: >500 mg/dL Performed By: #### L 9200.0000 #### [facility] [address] [place], [address] Prothrombin Time w/INRon INR Coag (PPP) [Relative time] 1.7 {INR} Normal [facility] Comment on above: Order Comment: Comme nts: STANDING ORDER Performed By: #### L 300.3900, L506.1001 #### [facility] [address] [place], [address] PT Coag (PPP) [Time] 20.1 s High 11.7-14.9 [facility] Comment on above: Order Comment: Comme nts: STANDING ORDER Performed By: #### L 300.3900, L506.1001 #### [facility] [address] [place], [address] INR Normal [facility] Comment on above: Result Comment: DUPL ICATE Performed By: #### L 300.3900, L506.1001 #### [facility] [address] [place], [address] PROTIME Normal 11.7-14.9 [facility] Comment on above: Result Comment: DUPL ICATE Performed By: #### L 300.3900, L506.1001 #### [facility] [address] [place], [address] Thyroid Stim Hormone (TSH)on 08-17-2025 TSH 2.510 uIU/mL Normal 0.300-4.200 [facility] Comment on above: Order Comment: Order Date: 08/16/25Order Info: [id number] - CMPOrder Info: [id number] - LIPIDOrder Info: [id number] - TSHINR RESULTS GO TO DR Performed By: #### L 9200.0000 #### [facility] [address] [place], [place], [address] Vitamin D,25 Hydroxyon 08-17 Vitamin D 25-OH 65.2 ng/mL Normal 30-100 [facility] Comment on above: Order Comment: Order Date: 08/16/25 Order Info: [id number] - CMP Order Info: [id number] - LIPID Order Info: [id number] - TSH INR RESULTS GO TO DR Result Comment: Deedee min D Status Deficiency: <20 ng/mL (50nmol/L) Insufficiency: 20-30 ng/mL (50-75 nmol/L) Sufficiency: 30-100 ng/mL (75-250 nmol/L) Toxicity: >100 ng/mL (>250 nmol/L) Performed By: #### L 300.3900, L506.1001 #### [facility] [address] [place], [place], [address] MR/TRACIAbimbola 08-16-2025 /VAISHNAVI [facility] [address] [facility], [address] [place] [address] OFFICE VISIT Date of Service: 08/16/25 MR#: [id number] Acct: [id number] Name: GAYATHRI CORREIA Rep #: [id number] : 1945 Provider: Dr. Jessy Lama i, MD Age/Sex: 80/F [place] [facility] [place] Status: Signed Intake Vital Signs 06/07/25 14:38 08/16/25 09:18 Height 4 ft 10 in 4 ft 10 in BP 118/70 Blood Pressure Location Lt radial Position Sitting Pulse 73 Pulse Source Monitor Intake Visit Reasons: 3 month follow up Chief Complaint: 3 month f/u Allergies No Known Allergies Allergy (Verified 08/16/25 09:15) Medications ???Medication ???Instructions ???Recorded ???Confirmed ???Type nahhthms-yoph-fhrd 8 mg-folic 400 1 ea PO DAILY supplement 03/02/17 08/16/25 History mcg-K 50 mcg-lutein 300 mcg tablet gabapentin 300 mg capsule 300 mg PO BID pain 30 days #90 cap s 12/24/18 08/16/25 History coenzyme Q10 100 mg capsule 100 mg PO DAILY 08/09/21 08/16/25 History (Q-Sorb Co Q-10) melatonin 3 mg tablet 10 mg PO QHS sleep 02/07/22 History acetaminophen 500 mg tablet 1,000 mg PO ONCE 11/09/22 08/16/25 History calcium carbonate (Calcium 600) 600 mg PO BID 11/09/22 08/16/25 Hi story cholecalciferol (vitamin D3) 50 50 mcg PO BID 11/09/22 08/16/25 Hi story mcg (2,000 unit) capsule pyridoxine (vitamin B6) 100 mg 100 mg PO DAILY supplement 2 08/16/25 History tablet escitalopram oxalate 10 mg tablet 10 mg PO QDAY 02/26/25 08/16/25 H istory warfarin 3 mg tablet 3 mg PO .COMPLEX #90 TABLETS 03/0808/16/25 Rx furosemide 40 mg tablet 40 mg PO DAILY #90 tabs 03/10/25 0 08/16/25 Rx metoprolol succinate 25 mg 25 mg PO .COMPLEX afib #180 tabs 0 03/15/25 08/16/25 Rx tablet,extended release 24 hr atorvastatin 10 mg tablet 10 mg PO DAILY #90 tabs 03/22/25 0 08/16/25 Rx losartan 100 mg tablet 100 mg PO DAILY #90 tabs 03/22/25 08/16/25 Rx metoprolol tartrate 25 mg tablet 25 mg PO .COMPLEX PRN rapid HR #10 05/18/25 08/16/25 Rx tabs tamoxifen 20 mg tablet 20 mg PO DAILY #90 TABLETS 5 08/16/25 Rx Have you fallen in the past year?: No Nurse's Note: pt forgot voiding diary, also states forgot to journal in diary as well. no current urinary sx Bladder scan PVR: 12 PFSH Medical History (Updated 08/16/25 @ 09:[address] Jessy Wade MD) Constipation Urge incontinence Urinary retention Dilated aortic root Wears glasses Post-menopausal Cancer Depression History of steroid therapy Arthritis Loss of consciousness History of IBS Non-smoker CPAP (continuous positive airway pressure) dependence Sleep apnea Shortness of breath on exertion Chronic cough History of echocardiogram History of stress test Hypertension History of irregular heartbeat Cardiology follow-up encounter History of atrial fibrillation History of trigger finger Osteoporosis Sleep apnea with use of continuous positive airway pressure (CPAP) Cataract, left eye Irritable bowel Wrist fracture, left Lung nodule, multiple Encounter for education Breast cancer, right breast Malignant neoplasm of central portion of right female breast Paroxysmal atrial flutter Spinal stenosis 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 Paroxysmal atrial fibrillation Obesity Type 2 diabetes mellitus Surgical History Vaginal cyst Hx of cataract extraction Status post right breast lumpectomy S/P right breast biopsy (03/05/19) S/P shoulder surgery H/O dilation and curettage H/O hand surgery S/P carpal tunnel release h/o breast lumpectomy H/O: hysterectomy H/O total knee replacement History of tonsillectomy History of back surgery History of radiofrequency ablation procedure for cardiac arrhythmia (03/20/11) History of gastric bypass Family History Sister CVA (cerebral vascular accident) Father CAD (coronary artery disease) Hypertension Mother Hypertension CAD (coronary artery disease) Social History Smoking Status: Never smoker Electronic Cigarette Use: not used second hand exposure: Yes (Childhood ) alcohol intake: current alcohol intake frequency: holidays/special occasions only Alcohol type: wine substance use type: does not use additional social history: HPI HPI Urology Chief Complaint: 3 month f/u Details: GAYATHRI CORREIA, is a 80 F. She is here for follow up on urinary retention with urge incontinence. She has actually been doing well and not having any urinary symptoms at this time. She had cyst removed from the uterus and she is doing really well since then. It was benign and was easier to d (more content not included)... Normal [facility] normalized rat io (INR) measurement by fingerstickOrdered By: Juni Epstein on 08-04-2025 INR Coag (BldC) [Relative time] 3.5 [facility] Comment on above: Critical Value > 4.0 Protime w/INR Fingerstickon 08-04-2025 INR Coag (PPP) [Relative time] 3.5 {INR} Normal [facility] Comment on above: Result Comment: Crit ical Value > 4.0 Performed By: #### L 9200.0000 #### [facility] [address] [place], [address] Protime Coagsen 35.3 SEC High 11.7-14.9 [facility] Comment on above: Performed By: #### L 9200.0000 #### [facility] [address] [place], [address] Whole blood prothrombin time Ordered By: Juni Epstein on 08-04-2025 PT Coag (Bld) [Time] 35.3 s High 11.7-14.9 [facility] normalized rat io (INR) measurement by fingerstickOrdered By: Juni Epstein on 06-25-2025 INR Coag (BldC) [Relative time] 3.1 [facility] Comment on above: Critical Value > 4.0 Protime w/INR Fingerstickon 06-25-2025 INR Coag (PPP) [Relative time] 3.1 {INR} Normal [facility] Comment on above: Result Comment: Crit ical Value > 4.0 Performed By: #### L 9200.0000 #### [facility] [address] [place], [address] Protime [place]agsen 32.3 SEC High 11.7-14.9 [facility] Comment on above: Performed By: #### L 9200.0000 #### [facility] [address] [place], [address] Whole blood prothrombin time Ordered By: Juni Epstein on 06-25-2025 PT Coag (Bld) [Time] 32.3 s High 11.7-14.9 [facility] [employer] Office Visit Reporton 06-07-2025 Workday Senior Associate Office Visit Report [facility] [address], [address] [place] [address] OFFICE VISIT Date of Service: 06/07/25 MR#: [id number] Acct: [id number] Name: GAYATHRI CORREIA Rep #: [id number] : 1945 Provider: Dr. Senait Gimenez, DO Age/Sex: 79/F Location[place] [facility] Status: Signed Intake Vital Signs 04/06/25 08:35 04/30/25 13:50 05/25/25 12:03 06/07/25 14:36 06/07/25 14:38 Height 4 ft 10 in 4 ft 10 in 4 ft 10 in 4 ft 10 in 4 ft 10 in Weight: 196 lb 8 oz BMI 41.1 BP 116/81 H Intake Visit Reasons: 2 wk labial lysys adhesions remove vag. mass Early Childhood Required: No Is patient in pain?: No Allergies No Known Allergies Allergy (Verified 06/07/25 14:36) Medications ???Medication ???Instructions ???Recorded ???Confirmed ???Type cdvoddbp-rakn-jtri 8 mg-folic 400 1 ea PO DAILY supplement 03/02/17 06/07/25 History mcg-K 50 mcg-lutein 300 mcg tablet gabapentin 300 mg capsule 300 mg PO BID pain 30 days #90 cap s 12/24/18 06/07/25 History coenzyme Q10 100 mg capsule 100 mg PO DAILY 08/09/21 06/07/25 History (Q-Sorb Co Q-10) melatonin 3 mg tablet 10 mg PO QHS sleep 02/07/22 History acetaminophen 500 mg tablet 1,000 mg PO ONCE 11/09/22 06/07/25 History calcium carbonate (Calcium 600) 600 mg PO BID 11/09/22 06/07/25 Hi story cholecalciferol (vitamin D3) 50 50 mcg PO BID 11/09/22 06/07/25 Hi story mcg (2,000 unit) capsule pyridoxine (vitamin B6) 100 mg 100 mg PO DAILY supplement 2 06/07/25 History tablet tamoxifen 20 mg tablet 20 mg PO DAILY #90 TABLETS 4 06/07/25 Rx escitalopram oxalate 10 mg tablet 10 mg PO QDAY 02/26/25 06/07/25 H istory warfarin 3 mg tablet 3 mg PO .COMPLEX #90 TABLETS 03/0806/07/25 Rx furosemide 40 mg tablet 40 mg PO DAILY #90 tabs 03/10/25 0 06/07/25 Rx metoprolol succinate 25 mg 25 mg PO .COMPLEX afib #180 tabs 0 03/15/25 06/07/25 Rx tablet,extended release 24 hr atorvastatin 10 mg tablet 10 mg PO DAILY #90 tabs 03/22/25 0 06/07/25 Rx losartan 100 mg tablet 100 mg PO DAILY #90 tabs 03/22/25 06/07/25 Rx metoprolol tartrate 25 mg tablet 25 mg PO .COMPLEX PRN rapid HR #10 05/18/25 06/07/25 Rx tabs estradiol 0.01% (0.1 mg/gram) 1 appful vaginal DAILY #42.5 grams 05/25/25 06/07/25 Rx vaginal cream Is last menstrual period known: No Post menopausal: Yes Patient : No : No PFS Medical History Dilated aortic root Wears glasses Post-menopausal Cancer Depression History of steroid therapy Arthritis Loss of consciousness History of IBS Non-smoker CPAP (continuous positive airway pressure) dependence Sleep apnea Shortness of breath on exertion Chronic cough History of echocardiogram History of stress test Hypertension History of irregular heartbeat Cardiology follow-up encounter History of atrial fibrillation History of trigger finger Osteoporosis Sleep apnea with use of continuous positive airway pressure (CPAP) Cataract, left eye Irritable bowel Wrist fracture, left Lung nodule, multiple Encounter for education Breast cancer, right breast Malignant neoplasm of central portion of right female breast Paroxysmal atrial flutter Spinal stenosis 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 Paroxysmal atrial fibrillation Obesity Type 2 diabetes mellitus Surgical History Vaginal cyst Hx of cataract extraction Status post right breast lumpectomy S/P right breast biopsy (03/05/19) S/P shoulder surgery H/O dilation and curettage H/O hand surgery S/P carpal tunnel release h/o breast lumpectomy H/O: hysterectomy H/O total knee replacement History of tonsillectomy History of back surgery History of radiofrequency ablation procedure for cardiac arrhythmia (03/20/11) History of gastric bypass Family History Sister CVA (cerebral vascular accident) Father CAD (coronary artery disease) Hypertension Mother Hypertension CAD (coronary artery disease) Social History Smoking Status: Never smoker Electronic Cigarette Use: not used second hand exposure: Yes (Childhood ) alcohol intake: current alcohol intake frequency: holidays/special occasions only Alcohol type: wine substance use type: does not use additional social history: HPI 2 wk labial lysys adhesions remove vag. mass Details: GAYATHRI CORREIA is a 79 year old who presents for 2 week post op labial adhesiolysis and vaginal cyst removal. THe pathology was benign and she is using estrogen cream. History 3 Elective ab (more content not included)... Normal [facility] Protime w/INR Fingerstickon 05-26-2025 INR Coag (PPP) [Relative time] 1.3 {INR} Normal [facility] Comment on above: Result Comment: Crit ical Value > 4.0 Performed By: #### L 9200.0000 #### [facility] [address] [place], [place], [address] Protime Coagsen 15.2 SEC High 11.7-14.9 [facility] Comment on above: Performed By: #### L 9200.0000 #### [facility] [address] [place], [place], [address] Discharge Instructionon 05-03 Discharge Instruction [facility] Medical Records Department [address] [place] [address] Instructions for Home/Discharge Instructions 05/25/25 1332 MR#: [id number] Acct: [id number] Name: GAYATHRI CORREIA Rep #: [id number] : 1945 79 From: Senait Dick DO PCP: Dr. Daniel Lai MD Status:REG SDC Discharge Instructions Diet Discharge Diet: No restrictions DC O2, CPAP, BIPAP needs Home O2 Discharge instructions: No Dressing / Incision Discharge Activity: Return to Normal Activity Weight Bearing Status: Weight bearing as tolerated Lifting Restrictions: none Additional Activity Instructions:: may shower but no bath for 2 weeks Dressing / Incision Call your doctor if your incision/area has: Sudden Increased Bleeding and Foul Smelling Discharge Call your doctor if you observe: Fever of 101 or Higher, Using more than 1 pad per hour, Shortness of breath, Dizziness, Fainting spells, Chest pain, Calf discomfort and Uncontrolled pain Follow Up Care Test Results: Test results from this visit will be discussed in further detail at your follow-up appointment, if applicable. Discharge Plan Admission Primary Reason for Your Visit: excision of vaginal cyst Attending Provider: Senait Dick Primary Care Provider: Daniel Lai Instructions Print Language: Salvadorean Discharge Orders/Prescription s Prescriptions: Continued gabapentin 300 mg capsule 300 mg PO BID 30 Days Qty: 90 pyridoxine (vitamin B6) 100 mg tablet 100 mg PO DAILY cholecalciferol (vitamin D3) 50 mcg (2,000 unit) capsule 50 mcg PO BID coenzyme Q10 [Q-Sorb Co Q-10] 100 mg capsule 100 mg PO DAILY calcium carbonate [Calcium 600] 600 mg calcium (1,500 mg) tablet 600 mg PO BID tamoxifen 20 mg tablet 20 mg PO DAILY Qty: 90 3RF escitalopram oxalate 10 mg tablet 10 mg PO QDAY Patient Comments: [NO ORIGINAL SIG] metoprolol tartrate 25 mg tablet 25 mg PO .COMPLEX PRN (Reason: rapid HR) Qty: 10 0RF Rx Instructions: 25 mg orally as needed for rapid HR, do not take more than one a day ayzbvhes-sqn-xqug-F A-vit K-lut 1 EACH tablet 1 ea PO DAILY melatonin 3 mg tablet 10 mg PO QHS acetaminophen 500 mg tablet 1,000 mg PO ONCE warfarin 3 mg tablet 3 mg PO .COMPLEX Qty: 90 3RF Protocol: Dose Management Condition: Saturday Dose/Route: 1.5 mg Instruction: 0.5 x 3 mg tablets Condition: Saturday Dose/Route: 3 mg Instruction: 1 x 3 mg tablet Condition: Saturday Dose/Route: 3 mg Instruction: 1 x 3 mg tablet Condition: Saturday Dose/Route: 1.5 mg Instruction: 0.5 x 3 mg tablets Condition: Dose/Route: 1.5 mg Instruction: 0.5 x 3 mg tablets Condition: Saturday Dose/Route: 1.5 mg Instruction: 0.5 x 3 mg tablets Condition: Saturday Dose/Route: 1.5 mg Instruction: 0.5 x 3 mg tablets Protocol Text: Adjustment Start Date: Saturday02/24/25 INR Value: 2.3 INR Date: 02/24/25 Recheck Date: 03/26/25 Patient Comments: PT TO STOP PER DR. EASTMAN ORDERS PRIOR TO PROCEDURE Rx Instructions: 3 mg orally Every Saturday and Saturday: take 1/2 tablet all other days of the week OR as directed. Please give extra tablets for PRN dose changes. furosemide 40 mg tablet 40 mg PO DAILY Qty: 90 3RF metoprolol succinate 25 mg tablet extended release 24 hr 25 mg PO .COMPLEX Qty: 180 3RF Rx Instructions: 25 mg PO daily, may take one extra tablet daily for BP > 140 systolic or HR > 110.; losartan 100 mg tablet 100 mg PO DAILY Qty: 90 3RF atorvastatin 10 mg tablet 10 mg PO DAILY Qty: 90 3RF Referrals / Follow Up: Daniel Lai MD [Primary Care Provider] - Disposition Disposition (needs filled in before D/C Order can be placed): Home, Self Care 05/25/25 1333 Senait Dick DO CC: Dr. Daniel Lai MD Signed Normal [facility] normalized rat io (INR) measurement by fingerstickOrdered By: Senait Sorto on 05-25-2025 INR Coag (BldC) [Relative time] 1.3 [facility] Comment on above: Critical Value > 4.0 [id number] 05-25-2025 [facility] Medical Records Department [address] [place] [address] Anesthesia Postop Eval II 05/25/256 MR#: [id number] Acct: [id number] Name: GAYATHRI CORREIA Rep #: [id number] : 1945 79 From: Basil Harris MD PCP: Dr. Daniel Lai MD Status:[facility] Y Race: C [place] [facility] [place] Postop Eval I Sum Postop Eval Completion status Anesthesia document: Postop Eval 1 completed: Yes Anesthesia Postop Eval I Summary Anesthesia Postop Eval I Summary: Anesthesia Postop Eval I: Assessment Summary Airway patent Yes 05/25/25 22:33 Spontaneous unlabored Yes 05/25/25 22:33 respirations Mental status Awake,Calm 05/25/25 22:33 nausea No 05/25/25 22:33 Vomiting No 05/25/25 22:33 Anesthesia Postop Eval I: Fluid Summary Crystalloid volume administer 500 05/25/25 22:35 (ml) Colloids volume administered ( ml) Blood Product volume administered (ml) Total IV fluid infused 500 05/25/25 22:35 Anesthesia Postop Eval I: Summary Notes Anesthesia Complication No 05/25/25 22:33 Anesthesia Complication Comment: Post-operative progress note Anesthesia: Postop Eval II Evaluation Mental status: Awake and Calm Pain Level: 1 nausea: No Vomiting: No Complications Anesthesia Complication: No 05/25/252236 Date Basil Harris MD Cosigner Signature: Date CC: Signed Normal [facility] Operative Reporton Operative Report [facility] Medical Records Department [address] [place] [address] Operative Report 05/25/25 1417 MR#: [id number] Acct: [id number] Name: GAYATHRI CORREIA Rep #: [id number] : 1945 79 From: Senait Dick DO PCP: Dr. Daniel Lai MD Status:[facility] Location: [place] [address] Problems Associated Problem List Diagnoses (1) Vaginal mass: (2) Postmenopausal bleeding: Multi Select Codes Urinary/Genital Urinary/Genital CPT Codes: Other Procedure See Report (removal of vaginal cyst and lysis of labial adhesions ) Operative Report (Standard) Operative Information Date of Procedure: 05/25/25 Pre-Operative Diagnosis: labial adhesions, vaginal mass, postmenopausal bleeding Post-Operative Diagnosis: labial adhesions, vaginal mass, postmenopausal bleeding Surgery/Procedure Performed: lysis of labial adhesions and removal of vaginal mass map compiler: No Type of Anesthesia: MAC and Topical Anesth RN Documented Start/Stop Times: Operation Date: 05/25/25 13:15 Case Time Into Pre-Op 05/25/25 11:40 Out of Pre-Op 05/25/25 13:48 Anesthesia Start 05/25/25 13:51 Into Room 05/25/25 13:51 Procedure Start 05/25/25 14:08 Procedure End 05/25/25 14:16 Procedure Start Time: 14:08 Procedure Stop Time: 14:16 Select all DRAINS/GRAFTS/IMPLA NTS that apply: None Estimated Blood Loss: 3cc Specimen collected: Yes Description of specimen(s) removed: vaginal cyst Description of surgery: The patient was brought to the operating room and MAC anesthesia was administered. The patient's legs were placed in stirrups. The external genitalia and vagina were prepped and draped in the normal sterile fashion. There was noted to be adhesions of the right labia to the left labia. The base of the perineum was first injected with 1% lidocaine. The labial adhesions were carefully pulled apart manually. A right angle retractor was placed in the vagina and used as a speculum. A 2 cm vaginal cyst was noted and grasped with an Allis clamp. This was noted to have the consistency of a semifluctuant material. The mass was noted to be adherent to the vaginal cuff by a tiny stalk. The stalk was cauterized using the Bovie cautery after 1% lidocaine was injected. Excellent hemostasis was noted. The specimen was passed off for pathology analysis. The labial adhesions were starting to have some oozing and bleeding and Heema blast was applied to this area and pressure was held. Excellent hemostasis was noted at the completion of the procedure. Sponge lap needle counts were correct x 2. Surgical Findings: Labial adhesions and vaginal cyst noted. Complications Complications: No Admit VTE Documentation VTE Present on Admission: Yes VTE Mechan Device Prophylaxis: SCD's VTE Pharm Prophylaxis ordered?: Yes 05/25/25 1068 Cosigner Signature (if applicable): CC: Dr. Daniel Lai MD; Dr. Senait Dick DO Signed Normal [facility] Surgery Specimen Level IIIon 05-25-2025 Surgery Specimen Level III Patient Age/Sex Location Account Attending Physician GAYATHRI CORREIA 79/F [facility] [id number] Miguel Ruano Specimen: [id number] Received: 05/25/25 Status: DIOR Hankins Num: [id number] Spec Type: Cyst Subm Dr: Dr. Senait Dick DO HEAD OPERATION: Labial lysis of adhesions, removal of vaginal mass PRE-OP DIAGNOSIS: Vaginal mass, postmenopausal bleeding TISSUE SUBMITTED: A- Vaginal cyst MICROSCOPIC DIAGNOSIS A. Vagina, polypectomy: * Benign endocervical polyp with submucosal lipomatous and edematous features and focal squamous metaplasia MICROSCOPIC DESCRIPTION Slides are reviewed. GROSS DESCRIPTION A. Received in formalin labeled with the patient's name and date of . Designated as " vaginal cyst" is a 1.9 x 1.3 x 0.9 cm pale tolentino-pink, polypoid portion of rubbery tissue with a cauterized resection margin (inked black). Sectioning reveals transparent, edematous cut surfaces. Entirely submitted in 2 cassettes. AL 05/26/2025 CPT:04641 Patient Age/Sex Location Account Attending Physician GAYATHRI CORREIA 79/F [facility] [place] [id number] Miguel Ruano Signed (signatur e on file) Dr. Jasvir Ramos MD 06/02/25 1503 Normal [facility] Comment on above: Performed By: #### P SUIII ####[facility] [id number] [place], [address] Whole blood prothrombin time Ordered By: Senait Sorto on 05-25-2025 PT Coag (Bld) [Time] 15.2 s High 11.7-14.9 [facility] 6 Minute Walk Teston 025 6 Minute Walk Test y 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 EXECUTIVE-C Status: REG CLI Location: PSN Date: Sex: F C PSN 6 Minute Walk Test 6 Minute Walk Test 6 Minute Walk Test: 6 Minute Walk Test PSN:6-Minute Walk Test Start: 05/18/25 12:35 Freq: Status: Active Protocol: RESP.6MINW Document 05/18/25 12:04 WLB (Rec: 05/18/25 12:38 WLB [id number]) 6 Minute Walk Test Assistive device Cane used: Pre-test Oxygen Delivery Room Air Method Pulse Ox (%) 95 Pulse Rate (60-100 74 beats/min) Dyspnea Bhavna Scale ( 1 0-10) Exertion Bhavna Scale 6 (6-20) 1st minute Oxygen Delivery Room Air Method Pulse Ox (%) 89 Pulse Rate (60-100 82 beats/min) 2nd minute Oxygen Delivery Room Air Method Pulse Ox (%) 92 Pulse Rate (60-100 83 beats/min) 3rd minute Oxygen Delivery Room Air Method Pulse Ox (%) 92 Pulse Rate (60-100 87 beats/min) 4th minute Oxygen Delivery Room Air Method Pulse Ox (%) 91 Pulse Rate (60-100 86 beats/min) Reported Symptoms Increased Work of Breathing 5th minute Oxygen Delivery Room Air Method Pulse Ox (%) 91 Pulse Rate (60-100 90 beats/min) Reported Symptoms Increased Work of Breathing 6th minute Oxygen Delivery Room Air Method Pulse Ox (%) 89 Pulse Rate (60-100 91 beats/min) Reported Symptoms Increased Work of Breathing Post-test Oxygen Delivery Room Air Method Pulse Ox (%) 93 Pulse Rate (60-100 91 beats/min) Full Laps Walked 7 Partial Lap, Number 0 of Tiles Walked Total Distance 413 Walked (ft) Interpretation Interpretation: The patient ambulated 413 feet over the course of 6 minutes beginning on room air with use of a cane. Pretesting oxygen saturation was noted to be 95% on room air. With ambulation, the ana oxygen saturation was 89%. This represents a significant exertional oxygen desaturation, consistent with a pulmonary limitation to exercise tolerance. Recommendations Recommendations: There is no indication for the use of supplemental oxygen at this time. However, close interval follow-up is recommended, given the degree of oxygen desaturation noted during this study. 05/21/25 1045 Date Mauro Parker DO CC: Date Dictated: 05/21/25 1045 Date Transcribed: 05/21/251044 Final Inspector Movement Assembly: Dr. Mauro Parker, Signed Normal [facility] Cardiology Visit Reporton Cardiology Visit Report [facility] [address] [place], [place] [address] OFFICE VISIT Date of Service: 05/18/25 MR#: [id number] Acct: [id number] Name: GAYATHRI CORREIA Rep #: [id number] : 1945 Provider: JOSHUA Bermudez Age/Sex: 79/F Location[place] [facility] [place] Status: Signed HPI HPI History of Present Illness Details: Gayathri Correia 79-year-old female with a history of hypertension, hyperlipidemia, diabetes and gastric bypass surgery. She also has a history of paroxysmal atrial fibrillation. Pt was recently diagnosed with breast carcinoma of her right breast, and was treated with radiation therapy. Pt does occasionally have Afib. She was in the Er on 05/01. She had an episode at night, by the time she got to the ER she was in NSR. She went to the ER because she was so fatigued. She had Chest pressure with this. She does not have any worsening SOB. She does sometimes have GERD that resolves with TUMS. Intake Vital Signs 10/20/24 10:32 05/01/25 14:31 05/18/25 10:54 Height 4 ft 10 in 4 ft 10 in 4 ft 10 in Weight: 195 lb BMI 40.7 BP 138/84 H Blood Pressure Location Lt brachial Position Sitting Respiration 18 Pulse 65 Pulse Source Monitor Intake Visit Reasons: 6-9 M FU Early Childhood Required: No Accompanied by: Daughter In Law Is patient in pain?: No Allergies No Known Allergies Allergy (Verified 05/18/25 10:57) Medications ???Medication ???Instructions ???Recorded ???Confirmed ???Type ubhfrnbd-jquk-stkq 8 mg-folic 400 1 ea PO DAILY supplement 03/02/17 05/18/25 History mcg-K 50 mcg-lutein 300 mcg tablet gabapentin 300 mg capsule 300 mg PO BID pain 30 days #90 cap s 12/24/18 05/18/25 History coenzyme Q10 100 mg capsule 100 mg PO DAILY 08/09/21 05/18/25 History (Q-Sorb Co Q-10) melatonin 3 mg tablet 10 mg PO QHS sleep 02/07/22 History acetaminophen 500 mg tablet 1,000 mg PO ONCE 11/09/22 05/18/25 History calcium carbonate (Calcium 600) 600 mg PO BID 11/09/22 05/18/25 Hi story cholecalciferol (vitamin D3) 50 50 mcg PO BID 11/09/22 05/18/25 Hi story mcg (2,000 unit) capsule pyridoxine (vitamin B6) 100 mg 100 mg PO DAILY supplement 2 05/18/25 History tablet tamoxifen 20 mg tablet 20 mg PO DAILY #90 TABLETS 4 05/18/25 Rx escitalopram oxalate 10 mg tablet 10 mg PO QDAY 02/26/25 05/18/25 H istory warfarin 3 mg tablet 3 mg PO .COMPLEX #90 TABLETS 03/0805/18/25 Rx furosemide 40 mg tablet 40 mg PO DAILY #90 tabs 03/10/25 0 05/18/25 Rx metoprolol succinate 25 mg 25 mg PO .COMPLEX afib #180 tabs 0 03/15/25 05/18/25 Rx tablet,extended release 24 hr atorvastatin 10 mg tablet 10 mg PO DAILY #90 tabs 03/22/25 0 05/18/25 Rx losartan 100 mg tablet 100 mg PO DAILY #90 tabs 03/22/25 05/18/25 Rx Ejection fraction %: 60 Have you fallen in the past year?: Yes (2-3 weakness in legs ) [facility] Medical History (Updated 05/18/25 @ 11:22 by Luanne Bautista PA, PA) Dilated aortic root Wears glasses Post-menopausal Cancer Depression History of steroid therapy Arthritis Loss of consciousness History of IBS Non-smoker CPAP (continuous positive airway pressure) dependence Sleep apnea Shortness of breath on exertion Chronic cough History of echocardiogram History of stress test Hypertension History of irregular heartbeat Cardiology follow-up encounter History of atrial fibrillation History of trigger finger Osteoporosis Sleep apnea with use of continuous positive airway pressure (CPAP) Cataract, left eye Irritable bowel Wrist fracture, left Lung nodule, multiple Encounter for education Breast cancer, right breast Malignant neoplasm of central portion of right female breast Paroxysmal atrial flutter Spinal stenosis 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 Paroxysmal atrial fibrillation Obesity Type 2 diabetes mellitus Surgical History Hx of cataract extraction Status post right breast lumpectomy S/P right breast biopsy (03/05/19) S/P shoulder surgery H/O dilation and curettage H/O hand surgery S/P carpal tunnel release h/o breast lumpectomy H/O: hysterectomy H/O total knee replacement History of tonsillectomy History of back surgery History of radiofrequency ablation procedure for cardiac arrhythmia (03/20/11) History of gastric bypass Family History Sister CVA (cerebral vascular accident) Father CAD (coronary artery disease) Hypertension Mother Hypertension CAD (coronary artery disease) Social History Smoking Status: Never smoker Electronic Cigarette Use: not used seco (more content not included)... Normal [facility] Type AND Screen - PAT ONLYon 05-18-2025 ABO and Rh group Nom (Bld) Blood group B Rh(D) positive Normal [facility] Comment on above: Order Comment: Surge ry Date: 05/25/25Reason for Laboratory Test [id number] LYSIS OF ADHESIONS REMOVAL OF VAGINAL MASS Performed By: #### B TSPAT ####[facility] [address] [facility] [place], [address] Electrocardiogram reportOrde red By: Holger Del Valle on 05-03-2025 EKG study [facility] Cardiovascular Services [address] [place] [address] 12 Lead EKG 04/29/25 1341 MR#: [id number] Acct: [id number] Name: GAYATHRI CORREIA Rep #:[id number] : 1945 79 From: Holger richter MD Attending Dr: Dr. Senait Dick DO Status: PRE [facility] [place] Ordering Dr: Senait Dick DO D ate: 04/29/25 Location: [facility] [place] Sex: F C Admitted: Test Reason : PREOP Blood Pressure : */* mmHG Vent. Rate : 74 BPM Atrial Rate : 78 BPM P-R Int : * ms QRS Dur : 78 ms QT Int : 392 ms P-R-T Axes : * 69 37 degrees QTcB Int : 435 ms Normal sinus rhythm NSTW CHANGES ABNORMAL Confirmed by Holger Del Valle ([id number]), health editor NORY TRAORE ([id number]) on 05/03/2025 11:32:20 AM Referred By: Senait Dick Confirmed By: Holger Del Valle 05/03/25 1132 Date _ Holger Del Valle MD CC: Dr. Daniel Lai MD; Dr. Senait Dick, DO ~ Signed [facility] Work Phone: Urine Cultureon 05-03-2025 URC Below infection level. Streptococcus group B Haslet Count 1000-10,000 Normal [facility] Comment on above: Performed By: #### M 100.2200 ####[facility] [address] [place], [address] 12 Lead EKGon 05-01-2025 12 Lead EKG [facility] Cardiovascular Services [address] [place] [address] 12 Lead EKG 05/01/25 1527 MR#: [id number] Acct: [id number] Name: GAYATHRI CORREIA Rep #: [id number] : 1945 79 From: Holger Del Valle MD Attending Dr: Status: DEP ER Ordering Dr: Aisha Wright Date: 05/01/25 Location: ED Sex: F C Admitted: Test Reason : CHEST PRESSURE Blood Pressure : */* mmHG Vent. Rate : 70 BPM Atrial Rate : * BPM P-R Int : * ms QRS Dur : 78 ms QT Int : 392 ms P-R-T Axes : * 57 62 degrees QTcB Int : 423 ms Normal sinus rhythm Low voltage QRS Abnormal ECG Confirmed by Holger Del Valle ([id number]), health editor VICENTE WALKER ([id number]) on 05/03/2025 10:55:56 AM Referred By: Confirmed By: Holger Del Valle 05/03/25 105 Date Holger Del Valle MD CC: Dr. Daniel Lai MD; Dr. Brian Rivers MD; JOSHUA Francis Signed Normal [facility] Absolute lymphocyte countOrd ered By: Aisha Wright on 05-01-2025 Lymphocytes Auto (Unsp spec) [#/Vol] 1.77 10*3/uL 0.83-4.51 [facility] Absolute neutrophil countOrd ered By: Aisha Wright on 05-01-2025 Neutrophils (Bld) [#/Vol] 3.1 10*3/uL 2.0-7.7 [facility] Anion gap in Serum or Plasma Ordered By: Aisha Wright on 05-01-2025 Anion gap [Moles/Vol] 10 mmol/L 5-15 [facility] Automated blood erythrocyte countOrdered By: Aisha Wright on 05-01-2025 RBC (Bld) [#/Vol] 3.60 10*6/uL Low 4.2-5.4 [facility] Comment on above: Performed By: #### L 300.3900, L506.1001 #### [facility] Laboratory [address] [facility] [address] Automated blood hematocrit ( percentage)Ordered By: Aisha Wright on 05-01-2025 Hematocrit (Bld) [Volume fraction] 34.8 % Low 37-47 [facility] Comment on above: Performed By: #### L 300.3900, L506.1001 #### [facility] Laboratory [address] [place], [address] Automated lymphocyte count a s percentage of total leukocytesOrdered By: Aisha Wright on 05-01-2025 Lymphocytes/100 WBC Auto (Unsp spec) 32.8 % 19-41 [facility] BUN/creatinine ratioOrdered By: Aisha Wright on 05-01-2025 Urea nitrogen/Creatinine [Mass ratio] 12.9 mg/mg 10- [facility] Basic Metabolic Profile (BMP )on 05-01-2025 BUN/CRE 12.9 RATIO Normal - [facility] Comment on above: Performed By: #### L 300.3900, L506.1001 #### [facility] Laboratory [address] [place], [address] ECRCL 34.45 ml/min Low 50-250 [facility] Comment on above: Performed By: #### L 300.3900, L506.1001 #### [facility] Laboratory [address] [place], [address] GAP 10 Normal 5-15 [facility] Comment on above: Performed By: #### L 300.3900, L506.1001 #### [facility] Laboratory [address] [place], [address] Potassium [Moles/Vol] 4.4 mmol/L Normal 3.3-5.1 [facility] Comment on above: Performed By: #### L 300.3900, L506.1001 #### [facility] Laboratory [address] [place], [address] Basophil percentageOrdered B y: Aishamaxine Wright on 05-01-2025 Basophils/100 WBC (Bld) 0.7 % Normal 0-1 [facility] Comment on above: Performed By: #### L 300.3900, L506.1001 #### [facility] Laboratory [address] [place], [address] Bilirubin Test strip Ql (U)O rdered By: Aishamaxine Wright on 05-01-2025 Bilirubin Ql (U) Negative Negative [facility] CBC W/Diff, Automatedon 04-03 Absolute Lymph 1.77 X10 3/uL Normal 0.83-4.51 [facility] Comment on above: Performed By: #### L 300.3900, L506.1001 #### [facility] Laboratory [address] [place], [address] Absolute Neut 3.1 X10 3/uL Normal 2.0-7.7 [facility] Comment on above: Performed By: #### L 300.3900, L506.1001 #### [facility] Laboratory [address] [place], [address] IG% 0.200 Normal 0.0-0.9 [facility] Comment on above: Result Comment: IG% - Immature Granulocytes (promyelocytes, myelocytes and metamyelocytes) > 1% indicates that a LEFT SHIFT is Present. Performed By: #### L 300.3900, L506.1001 #### [facility] Laboratory [address] [place], [address] Lymphocytes/100 WBC (Bld) 32.8 % Normal 19-41 [facility] Comment on above: Performed By: #### L 300.3900, L506.1001 #### [facility] Laboratory [address] [place], [address] Nucleated RBC (Bld) [#/Vol] 0 10*3/uL Normal 0-5 [facility] Comment on above: Performed By: #### L 300.3900, L506.1001 #### [facility] Laboratory [address] [place], [address] RDW SD 48.2 fl High 35.1-43.9 [facility] Comment on above: Performed By: #### L 300.3900, L506.1001 #### [facility] Laboratory [address] [place], [address] Carbon dioxide, total [Moles /volume] in Central venous bloodOrdered By: Aisha Wright on 05-01-2025 CO2 [Moles/Vol] 25.0 mmol/L Normal 21.0-32.0 [facility] Comment on above: Performed By: #### L 300.3900, L506.1001 #### [facility] Laboratory [address] [place], [address] Chest PA and Lateralon 05-01 Chest PA and Lateral [facility] Imaging Services [address] [place] [address] Chest PA and Lateral MR#: [id number] Acct: [id number] Name: GAYATHRI CORREIA Rep #: [id number] : 1945 F 79 From: Earl Samson MD PCP: Dr. Daniel Lai MD Status: REG ER Study: Chest PA and Lateral Date of Exam: 05/01/25 Exam# [id number] Ordering Dr: Aisha Wright EXAM: XR Chest, 2 Views CLINICAL INDICATION: CHEST PAIN TECHNIQUE: Frontal and lateral views of the chest. COMPARISON: No relevant prior studies available. FINDINGS: LUNGS AND PLEURAL SPACES: Unremarkable. No consolidation. No pneumothorax. HEART: Unremarkable. No cardiomegaly. MEDIASTINUM: Unremarkable. Normal mediastinal contour. BONES/JOINTS: Unremarkable. No acute fracture. RAD/Chest PA and Lateral IMPRESSION: No acute cardiopulmonary process. Reading Location: [id number] CC: Dr. Daniel Lai MD; JOSHUA Francis Final Inspector Movement Assembly: Signed Normal [facility] Chloride assayOrdered By: Negriat Wright on 05-01-2025 Chloride [Moles/Vol] 107 mmol/L Normal 98-108 [facility] Comment on above: Performed By: #### L 300.3900, L506.1001 #### [facility] Laboratory [address] [place], [address] Emergency Department Summary on 05-01-2025 Emergency Department Summary [facility] Medical Records Department [address] [place] [address] Emergency Department Summary 05/01/25 MR#: [id number] Acct: [id number] Name: GAYATHRI CORREIA Rep #: [id number] : 1945 79 From: Brian Rviers MD PCP: Dr. Daniel Lai MD Status:DEP ER Location: ED HPI History of Present Illness Chief Complaint: General Illness Narrative Narrative: 79-year-old female with PMH of HTN, HLD, A-fib, TERRY states she woke up last night and felt her heart racing. She put on her pulse oximeter and her heart rate varied between 130 to 150 bpm. She has associated chest pressure and a headache. It lasted about 2 hours and then she went to sleep and when she woke up around 9 AM she is just felt fatigued and generally unwell and still has a headache. No further palpitations. She also has urinary urgency that started this morning. She had an ablation for A-fib in 2010. She follows now with the [facility] and is on metoprolol and Coumadin. [facility] Medical History Wears glasses Post-menopausal Cancer Depression History of steroid therapy Arthritis Loss of consciousness History of IBS Non-smoker CPAP (continuous positive airway pressure) dependence Sleep apnea Shortness of breath on exertion Chronic cough History of echocardiogram History of stress test Hypertension History of irregular heartbeat Cardiology follow-up encounter History of atrial fibrillation History of trigger finger Osteoporosis Sleep apnea with use of continuous positive airway pressure (CPAP) Cataract, left eye Irritable bowel Wrist fracture, left Lung nodule, multiple Encounter for education Breast cancer, right breast Malignant neoplasm of central portion of right female breast Paroxysmal atrial flutter Spinal stenosis 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 Paroxysmal atrial fibrillation Obesity Type 2 diabetes mellitus Home Medications ???Medication ???Instructions ???Recorded ???Last Taken ???Type ocraabpz-dchs-yzix 8 mg-folic 400 1 ea PO DAILY supplement 03/02/17 05/01/25 History mcg-K 50 mcg-lutein 300 mcg tablet gabapentin 300 mg capsule 300 mg PO BID pain 30 days #90 cap s 12/24/18 05/01/25 History coenzyme Q10 100 mg capsule 100 mg PO DAILY 08/09/21 05/01/25 History (Q-Sorb Co Q-10) melatonin 3 mg tablet 10 mg PO QHS sleep 02/07/22 History acetaminophen 500 mg tablet 1,000 mg PO ONCE 11/09/22 05/01/25 History calcium carbonate (Calcium 600) 600 mg PO BID 11/09/22 05/01/25 Hi story cholecalciferol (vitamin D3) 50 50 mcg PO BID 11/09/22 05/01/25 Hi story mcg (2,000 unit) capsule pyridoxine (vitamin B6) 100 mg 100 mg PO DAILY supplement 2 05/01/25 History tablet tamoxifen 20 mg tablet 20 mg PO DAILY #90 TABLETS 4 04/30/25 Rx escitalopram oxalate 10 mg tablet 10 mg PO QDAY 02/26/25 05/01/25 H istory warfarin 3 mg tablet 3 mg PO .COMPLEX #90 TABLETS 03/0804/30/25 Rx furosemide 40 mg tablet 40 mg PO DAILY #90 tabs 03/10/25 0 05/01/25 Rx metoprolol succinate 25 mg 25 mg PO .COMPLEX afib #180 tabs 0 03/15/25 04/30/25 Rx tablet,extended release 24 hr atorvastatin 10 mg tablet 10 mg PO DAILY #90 tabs 03/22/25 0 05/01/25 Rx losartan 100 mg tablet 100 mg PO DAILY #90 tabs 03/22/25 05/01/25 Rx Allergy/AdvReac Type Severity Reaction Status Date / Time No Known Allergies Allergy Verified 05/01/25 14:31 Family History Sister CVA (cerebral vascular accident) Father CAD (coronary artery disease) Hypertension Mother Hypertension CAD (coronary artery disease) Surgical History Hx of cataract extraction Status post right breast lumpectomy S/P right breast biopsy (03/05/19) S/P shoulder surgery H/O dilation and curettage H/O hand surgery S/P carpal tunnel release h/o breast lumpectomy H/O: hysterectomy H/O total knee replacement History of tonsillectomy History of back surgery History of radiofrequency ablation procedure for cardiac arrhythmia (03/20/11) History of gastric bypass Social History Smoking Status: Never smoker Electronic Cigarette Use: not used second hand exposure: Yes (Childhood ) alcohol intake: current alcohol intake frequency: holidays/special occasions only Alcohol type: wine substance use type: does not use additional social history: ROS ROS ED ROS Narrative Constitutional: Positive for malaise. Negative for fever, chills. CVS: Positive for palpitations, chest pain. Negative for syncope. Respiratory: Negative for shortness of breath, cough, orthopnea. GI: Negative for abdo (more content not included)... Normal [facility] Eosinophil percentageOrdered By: Aisha Wright on 05-01-2025 Eosinophils/100 WBC (Bld) 2.4 % Normal 0-5 [facility] Comment on above: Performed By: #### L 300.3900, L506.1001 #### [facility] Laboratory [address] [place], [address] Erythrocyte distribution wid th ratioOrdered By: Aisha Wright on 05-01-2025 Erythrocyte distribution width (RBC) [Ratio] 13.5 % Normal 11.6-14.6 [facility] Comment on above: Performed By: #### L 300.3900, L506.1001 #### [facility] Laboratory [address] [place], [address] Erythrocyte distribution wid th standard deviationOrdered By: Aisha Wright on 05-01-2025 Erythrocyte distribution width (RBC) [Ratio] 48.2 fl High 35.1-43.9 [facility] Glomerular filtration rate ( GFR) estimation/1.73 sq m using serum, plasma, or whole bOrdered By: Aisha Wright on 05-01-2025 GFR/1.73 sq M.predicted among non-blacks MDRD (S/P/Bld) [Vol rate/Area] 43 mL/min/{1.73_m2} Low >60 [facility] Comment on above: mL/min/1.73m2 CKD-EP I Creatinine Equation (2020) Result Comment: mL/m in/1.73m2 CKD-EPI Creatinine Equation (2020) Performed By: #### L 300.3900, L506.1001 #### [facility] Laboratory [address] [place], [address] Hemoglobin measurementOrdere d By: Aisha Wright on 05-01-2025 Hemoglobin (Bld) [Mass/Vol] 11.1 g/dL Low 12.0-15.0 [facility] Comment on above: Performed By: #### L 300.3900, L506.1001 #### [facility] Laboratory [address] [place], [address] Immature granulocytes/100 WB C Auto (Bld)Ordered By: Aisha Wright on 05-01-2025 Immature granulocytes/100 WBC (Bld) 0.200 % 0.0-0.9 [facility] Comment on above: IG% - Immature Granu locytes (promyelocytes, myelocytes and metamyelocytes) > 1% indicates that a LEFT SHIFT is Present. International normalized rat io (INR) calculationOrdered By: Aisha Wright on 05-01-2025 INR Coag (Bld) [Relative time] 2.5 {INR} [facility] Ketones Test strip Ql (U)Ord ered By: Aisha Wright on 05-01-2025 Ketones Ql (U) Negative Negative [facility] L499.0042on 05-01-2025 Trop T High Sen 17 ng/L High <=14 [facility] Comment on above: Performed By: #### L 300.3900, L506.1001 #### [facility] Laboratory [address] [place], [address] L499.0043on 05-01-2025 Trop T High Sen Normal <=14 [facility] Comment on above: Result Comment: Canc elled via OM: Order cancelled - Patient discharged Performed By: #### L 499.0043 #### [facility] Laboratory [address] [place], [address] L501.4021on 05-01-2025 Trop T High Sen 15 ng/L High <=14 [facility] Comment on above: Performed By: #### L 300.3900, L506.1001 #### [facility] Laboratory [address] [place], [address] MCV (mean corpuscular volume ) determinationOrdered By: Aisha Wright on 05-01-2025 MCV (RBC) [Entitic vol] 96.7 fL Normal 81-99 [facility] Comment on above: Performed By: #### L 300.3900, L506.1001 #### [facility] Laboratory [address] [place], [address] Mean corpuscular hemoglobin (MCH) determinationOrdered By: Aisha Wright on 05-01-2025 MCH (RBC) [Entitic mass] 30.8 pg Normal 27.0-32.0 [facility] Comment on above: Performed By: #### L 300.3900, L506.1001 #### [facility] Laboratory [address] [place], [address] Mean corpuscular hemoglobin concentration (MCHC) determinationOrdered By: Aisha Wright on 05-01-2025 MCHC (RBC) [Mass/Vol] 31.9 g/dL Low 32-36 [facility] Comment on above: Performed By: #### L 300.3900, L506.1001 #### [facility] Laboratory [address] [place], [address] Mean platelet volume determi nationOrdered By: Aisha Wright on 05-01-2025 Platelet mean volume (Bld) [Entitic vol] 9.4 fL Normal 6.2-12.0 [facility] Comment on above: Performed By: #### L 300.3900, L506.1001 #### [facility] Laboratory [address] [place], [address] Microscopic analysis of urin e for red blood cells (RBC)Ordered By: Aisha Wright on 05-01-2025 Microscopic analysis of urine for red blood cells (RBC) 0-5 SEEN /hpf 0-5 [facility] Monocyte percentageOrdered B y: Aisha Wright on 05-01-2025 Monocytes/100 WBC (Bld) 6.7 % Normal 0-10 [facility] Comment on above: Performed By: #### L 300.3900, L506.1001 #### [facility] Laboratory [address] [place], [address] Mucus LM Ql (Urine sed)Order ed By: Aisha Wright on 05-01-2025 Mucus Ql (Urine sed) 0 SEEN /hpf [facility] Neutrophil percentageOrdered By: Aisha Wright on 05-01-2025 Neutrophils/100 WBC (Bld) 57.2 % Normal 47-70 [facility] Comment on above: Performed By: #### L 300.3900, L506.1001 #### [facility] Laboratory [address] [place], [place], [address] Nitrite Test strip Ql (U)Ord ered By: Aisha Wright on 05-01-2025 Nitrite Ql (U) Negative Negative [facility] Nucleated red blood cell per centageOrdered By: Aisha Wright on 05-01-2025 Nucleated RBC/100 WBC (Bld) [Ratio] 0 % 0-5 [facility] Platelet countOrdered By: Negrita Wright on 05-01-2025 Platelets (Bld) [#/Vol] 210 10*3/uL Normal 150-450 [facility] Comment on above: Performed By: #### L 300.3900, L506.1001 #### [facility] Laboratory [address] [place], [address] Potassium measurement (mass/ volume)Ordered By: Aisha Wright on 05-01-2025 Potassium (Unsp spec) [Mass/Vol] 4.4 mmol/L 3.3-5.1 [facility] Protein Test strip Ql (U)Ord ered By: Aisha Wright on 05-01-2025 Protein Ql (U) 30 mg/dl High Negative [facility] Prothrombin Time w/INRon INR Coag (PPP) [Relative time] 2.5 {INR} Normal [facility] Comment on above: Performed By: #### L 9200.0000 #### [facility] Laboratory [address] [place], [address] Prothrombin timeOrdered By: Aisha Wright on 05-01-2025 PT Coag (PPP) [Time] 27.5 s High 11.7-14.9 [facility] Comment on above: Performed By: #### L 9200.0000 #### [facility] Laboratory [address] [place], [address] Serum creatinine measurement (mass/volume)Ordered By: Aisha Wright on 05-01-2025 Creatinine [Mass/Vol] 1.26 mg/dL High 0.70-1.20 [facility] Comment on above: Performed By: #### L 300.3900, L506.1001 #### [facility] Laboratory [address] [place], [address] Serum glucose measurement (m ass/volume)Ordered By: Aisha Wright on 05-01-2025 Glucose [Mass/Vol] 125 mg/dL High 70-99 [facility] Comment on above: Performed By: #### L 300.3900, L506.1001 #### [facility] Laboratory [address] [place], [address] Serum or plasma calcium pk urement (mass/volume)Ordered By: Aisha Wright on 05-01-2025 Calcium [Mass/Vol] 8.9 mg/dL Normal 7.6-11.0 [facility] Comment on above: Performed By: #### L 300.3900, L506.1001 #### [facility] Laboratory [address] [place], [address] Serum or plasma urea nitroge n measurement (mass/volume)Ordered By: Aisha Wright on 05-01-2025 Urea nitrogen [Mass/Vol] 16 mg/dL Normal 4-19 [facility] Comment on above: Performed By: #### L 300.3900, L506.1001 #### [facility] Laboratory [address] [place], [address] Sodium levelOrdered By: Aisha Wright on 05-01-2025 Sodium [Moles/Vol] 142 mmol/L Normal 133-145 [facility] Comment on above: Performed By: #### L 300.3900, L506.1001 #### [facility] Laboratory [address] [place], [address] Squamous epithelial cells de tection in urine sediment by light microscopyOrdered By: Aisha Wright on 05-01-2025 Epithelial cells.squamous LM Ql (Urine sed) 10-25 SEEN /hpf 5-10 [facility] Transitional cells detection in urine sediment by light microscopyOrdered By: Aisha Wright on 05-01-2025 Transitional cells LM Ql (Urine sed) 0-5 SEEN /hpf 0-5 [facility] Troponin T.cardiac [Mass/vol ume] in Serum or Plasma by High sensitivity methodOrdered By: Aisha Wright on 05-01-2025 Troponin T.cardiac High sensitivity method [Mass/Vol] 17 ng/L High <14 [facility] Troponin T.cardiac High sensitivity method [Mass/Vol] 15 ng/L High <14 [facility] Urinalysis, Completeon 05-01 EPI,SQUAMOUS 10-25 SEEN Normal 5-10 [facility] Comment on above: Order Comment: CLEAN CATCH Performed By: #### L 9200.0000 #### [facility] Laboratory [address] [place], [address] EPI,TRANSITION 0-5 SEEN Normal 0-5 [facility] Comment on above: Order Comment: CLEAN CATCH Performed By: #### L 9200.0000 #### [facility] Laboratory [address] [place], [address] RBC 0-5 SEEN Normal 0-5 [facility] Comment on above: Order Comment: CLEAN CATCH Performed By: #### L 9200.0000 #### [facility] Laboratory [address] [place], [address] WBC 10-25 SEEN Normal 0-5 [facility] Comment on above: Order Comment: CLEAN CATCH Performed By: #### L 9200.0000 #### [facility] Laboratory [address] [place], [address] BACTERIA 0 SEEN Normal None Seen [facility] Comment on above: Order Comment: CLEAN CATCH Performed By: #### L 9200.0000 #### [facility] Laboratory [address] [place], [address] Mucus Ql (Urine sed) 0 SEEN Normal [facility] Comment on above: Order Comment: CLEAN CATCH Performed By: #### L 9200.0000 #### [facility] Laboratory [address] [place], [address] Urine clarityOrdered By: Caitlin Wright on 05-01-2025 Clarity (U) Sl. Cloudy Clear [facility] Urine color determinationOrd ered By: Aisha Wright on 05-01-2025 Color (U) Straw Yellow [facility] Urine cultureOrdered By: Caitlin Wright on 05-01-2025 Bacteria identified Cx Nom (U) Streptococcus group B Abnormal [facility] Urine glucose detectionOrder ed By: Aisha Wright on 05-01-2025 Glucose Ql (U) Normal mg/dl Normal [facility] Urine leukocyte esterase det ection by dipstickOrdered By: Aisha Wright on 05-01-2025 Leukocyte esterase Test strip Ql (U) 500 /ul High Negative [facility] Urine pHOrdered By: Aisha odonnell on 05-01-2025 pH (U) 5.0 [pH] 5.0 - 8.0 [facility] Urine sediment bacteria coun t by microscopy (number/high power field)Ordered By: Aisha Wright on 05-01-2025 Bacteria LM.HPF (Urine sed) [#/Area] 0 /[HPF] None Seen [facility] Urine specific gravity measu rementOrdered By: Aisha Wright on 05-01-2025 Specific gravity (U) [Rel density] 1.015 1.002-1.030 [facility] Urine urobilinogen measureme ntOrdered By: Aisha Wright on 05-01-2025 Urobilinogen Ql (U) Normal mg/dl Normal [facility] White blood cell (WBC) count Ordered By: Aisha Wright on 05-01-2025 WBC (Bld) [#/Vol] 5.4 10*3/uL Normal 4.4-11.0 [facility] Comment on above: Performed By: #### L 300.3900, L506.1001 #### [facility] Laboratory [address] [place], [address] White blood cell countOrdere d By: Aisha Wright on 05-01-2025 White blood cell count 10-25 SEEN /hpf 0-5 [facility] MR/PAT.ANEon 04-30-2025 MR/PAT.ANE [facility] Medical Records Department [address] [place] [address] PAT - Anesthesia 04/30/25 1539 MR#: [id number] Acct: [id number] Name: GAYATHRI CORREIA Rep #: [id number] : 1945 79 From: Basil Harris MD PCP: Dr. Daniel Lai MD Status:PRE [facility] [place] Race: C Location: [facility] [place] Pre-Assessment Diagnosis/Proposed Procedure Planned Operative Procedure(s): Labial Lysis of Adhesions, removal of Vaginal Mass Anesthesia History Anesthesia History - booking police officer: Anesthesia History - booking police officer Hx Hospitalization No 04/28/25 13:21 Any Problems With Anesthesia Yes: sometimes nausea 04/28/25 13:21 Cholinesterase deficiency No 04/28/25 13:21 You/Your Family Experience No 04/28/25 13:21 fever (hyperthermia) with Relationship Recent Exposure to Contagious No 03/17/19 08:29 Disease Does patient have nerve No 04/28/25 13:21 stimulator Patient instructed to have device shut off --Does patient have Pacemaker or ICD? When Was Last Pacemaker Check QUESTION #4 FULL TEXT: You/Your Family Experience fever (hyperthermia) with Anesthesia Last Oral Intake Last Oral intake: Last Oral Intake NPO since Meds taken in AM with sips of water? Meds patient instructed to take am of surgery PONV PONV - booking police officer: PONV - booking police officer Female Yes 04/28/25 13:21 HX of Motion Sickness No 04/28/25 13:21 HX of N/V After Surgery No 04/28/25 13:21 Non-Smoker Yes 04/28/25 13:21 Duration of Surgery greater No 04/28/25 13:21 than 60 minutes Number of Risk Factors 2 04/28/25 13:21 PONV Score Moderate Risk 04/28/25 13:21 Height Weight Height Weight: Anesthesia: Height Weight Height 4 ft 10 in 04/30/25 13:50 Respiratory Assessment Respiratory Assessment - booking police officer: Respiratory Tract Infection Hx - booking police officer Hx Respiratory Tract Infection No 04/28/25 13:21 STOP Sleep Apnea STOP Sleep Apnea - booking police officer: STOP Sleep Apnea - booking police officer Hx Hypertension Yes: states controlled with 04/28/25 13:21 med Hx Sleep Apnea Yes 04/28/25 13:21 CPAP Yes 04/28/25 13:21 BIPAP No 04/28/25 13:21 Do you snore loudly (louder than talking or can be heard Do you often feel tired/ fatigued/ sleepy during daytime? Has anyone observed you stop breathing during sleep? STOP Results Positive 04/28/25 13:21 QUESTION #5 FULL TEXT : Do you snore loudly (louder than talking or can be heard through closed doors)? 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 Specify any problems Hx of Preganancy in last 3 No 04/28/25 13:21 Months Nurse Filling Out Transfusion VCHRISTIN 04/28/25 13:21 Questions: Date: 04/28/25 04/28/25 13:21 Time: 13:22 04/28/25 13:21 Patient unable to answer at this time (ie. confused, unrespo /Reproduct ion History /Reproduct rudy History - booking police officer: /Reproduct rudy Hx- booking police officer Hx Now No 04/28/25 13:21 Gestational Age (in weeks): EDC: Hx Hx Para Hx Section SAB No 04/30/25 13:53 PFSH Medical History Wears glasses Post-menopausal Cancer Depression History of steroid therapy Arthritis Loss of consciousness History of IBS Non-smoker CPAP (continuous positive airway pressure) dependence Sleep apnea Shortness of breath on exertion Chronic cough History of echocardiogram History of stress test Hypertension History of irregular heartbeat Cardiology follow-up encounter History of atrial fibrillation History of trigger finger Osteoporosis Sleep apnea with use of continuous positive airway pressure (CPAP) Cataract, left eye Irritable bowel Wrist fracture, left Lung nodule, multiple Encounter for education Breast cancer, right breast Malignant neoplasm of central portion of right female breast Paroxysmal atrial flutter Spinal stenosis Essential (primary) hypertension 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 Normal [facility] Workday Senior Associate Office Visit Reporton 04-30-2025 Workday Senior Associate Office Visit Report [facility] [address], [address] [place] [address] OFFICE VISIT Date of Service: 04/30/25 MR#: [id number] Acct: [id number] Name: GAYATHRI CORREIA Rep #: [id number] : 1945 Provider: Dr. Senait Gimenez DO Age/Sex: 79/F Location: [facility] [place] Status: Signed Intake Vital Signs 04/06/25 08:35 04/30/25 13:50 Height 4 ft 10 in 4 ft 10 in Weight: 198 lb 8 oz 197 lb BMI 41.5 41.1 BP 104/71 101/69 Intake Visit Reasons: labial lysis of adhesions remove vag. mass Early Childhood Required: No Is patient in pain?: No Allergies No Known Allergies Allergy (Verified 04/30/25 13:53) Medications ???Medication ???Instructions ???Recorded ???Confirmed ???Type [id number]-tiel-skbh 8 mg-folic 400 1 ea PO DAILY supplement 03/02/17 04/30/25 History mcg-K 50 mcg-lutein 300 mcg tablet gabapentin 300 mg capsule 300 mg PO BID pain 30 days #90 cap s 12/24/18 04/30/25 History coenzyme Q10 100 mg capsule 100 mg PO DAILY 08/09/21 04/30/25 History (Q-Sorb Co Q-10) melatonin 3 mg tablet 10 mg PO QHS sleep 02/07/22 History acetaminophen 500 mg tablet 1,000 mg PO ONCE 11/09/22 04/30/25 History calcium carbonate (Calcium 600) 600 mg PO BID 11/09/22 04/30/25 Hi story cholecalciferol (vitamin D3) 50 50 mcg PO BID 11/09/22 04/30/25 Hi story mcg (2,000 unit) capsule pyridoxine (vitamin B6) 100 mg 100 mg PO DAILY supplement 2 04/30/25 History tablet tamoxifen 20 mg tablet 20 mg PO DAILY #90 TABLETS 4 04/30/25 Rx escitalopram oxalate 10 mg tablet 10 mg PO QDAY 02/26/25 04/30/25 H istory warfarin 3 mg tablet 3 mg PO .COMPLEX #90 TABLETS 03/0804/30/25 Rx furosemide 40 mg tablet 40 mg PO DAILY #90 tabs 03/10/25 0 04/30/25 Rx metoprolol succinate 25 mg 25 mg PO .COMPLEX afib #180 tabs 0 03/15/25 04/30/25 Rx tablet,extended release 24 hr atorvastatin 10 mg tablet 10 mg PO DAILY #90 tabs 03/22/25 0 04/30/25 Rx losartan 100 mg tablet 100 mg PO DAILY #90 tabs 03/22/25 04/30/25 Rx Is last menstrual period known: No Post menopausal: Yes Patient : No : No PFSH Medical History Wears glasses Post-menopausal Cancer Depression History of steroid therapy Arthritis Loss of consciousness History of IBS Non-smoker CPAP (continuous positive airway pressure) dependence Sleep apnea Shortness of breath on exertion Chronic cough History of echocardiogram History of stress test Hypertension History of irregular heartbeat Cardiology follow-up encounter History of atrial fibrillation History of trigger finger Osteoporosis Sleep apnea with use of continuous positive airway pressure (CPAP) Cataract, left eye Irritable bowel Wrist fracture, left Lung nodule, multiple Encounter for education Breast cancer, right breast Malignant neoplasm of central portion of right female breast Paroxysmal atrial flutter Spinal stenosis 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 Paroxysmal atrial fibrillation Obesity Type 2 diabetes mellitus Surgical History Hx of cataract extraction Status post right breast lumpectomy S/P right breast biopsy (03/05/19) S/P shoulder surgery H/O dilation and curettage H/O hand surgery S/P carpal tunnel release h/o breast lumpectomy H/O: hysterectomy H/O total knee replacement History of tonsillectomy History of back surgery History of radiofrequency ablation procedure for cardiac arrhythmia (03/20/11) History of gastric bypass Family History Sister CVA (cerebral vascular accident) Father CAD (coronary artery disease) Hypertension Mother Hypertension CAD (coronary artery disease) Social History Smoking Status: Never smoker Electronic Cigarette Use: not used second hand exposure: Yes (Childhood ) alcohol intake: current alcohol intake frequency: holidays/special occasions only Alcohol type: wine substance use type: does not use additional social history: HPI labial lysis of adhesions remove vag. mass Details: GAYATHRI CORREIA is a 79 year old who presents for a pre op evaluation for a labial lysis of adhesions and removal of vaginal mass. Her pcp gave instructions to proceed with surgery but to manage the coumadin as I feel appropriate. Surgery is scheduled for 05/11/25 however patient states that she would really like to go to [facility] on the and go to a camp ground where she will swim and be out doors. I have explained to her that she is at risk for labial hematoma after these kinds of procedures, especially when on coumadin and (more content not included)... Normal [facility] 12 Lead EKGon 04-29-2025 12 Lead EKG [facility] Cardiovascular Services [address] [place] [address] 12 Lead EKG 04/29/25 1341 MR#: [id number] Acct: [id number] Name: GAYATHRI CORREIA Rep #: [id number] : 1945 79 From: Holger Del Valle MD Attending Dr: Dr. Senait Dick DO Statu s: PRE SDC Ordering Dr: Senait Dick DO Date: 5 Location: [facility] [place] Sex: F C Admitted: Test Reason : PREOP Blood Pressure : */* mmHG Vent. Rate : 74 BPM Atrial Rate : 78 BPM P-R Int : * ms QRS Dur : 78 ms QT Int : 392 ms P-R-T Axes : * 69 37 degrees QTcB Int : 435 ms Normal sinus rhythm NSTW CHANGES ABNORMAL Confirmed by Holger Del Valle ([id number]), health editor NORY TRAORE ([id number]) on 05/03/2025 11:32:20 AM Referred By: Senait Dick Confirmed By: Holger Del Valle 05/03/25 1132 Date Holger Del Valle MD CC: Dr. Daniel Lai MD; Dr. Senait Dick, Signed Normal [facility] Absolute lymphocyte countOrd ered By: Josue Leal on 04-29-2025 Lymphocytes Auto (Unsp spec) [#/Vol] 2.03 10*3/uL 0.83-4.51 [facility] Absolute neutrophil countOrd ered By: Josue Leal on 04-29-2025 Neutrophils (Bld) [#/Vol] 2.5 10*3/uL 2.0-7.7 [facility] Anion gap in Serum or Plasma Ordered By: Josue Leal on 04-29-2025 Anion gap [Moles/Vol] 9 mmol/L 5-15 [facility] Automated lymphocyte count a s percentage of total leukocytesOrdered By: Josue Leal on 04-29-2025 Lymphocytes/100 WBC Auto (Unsp spec) 38.8 % - [facility] BUN/creatinine ratioOrdered By: Josue Leal on 04-29-2025 Urea nitrogen/Creatinine [Mass ratio] 14.4 mg/mg 10-20 [facility] Basophil percentageOrdered B y: Josue Leal on 04-29-2025 Basophils/100 WBC (Bld) 0.8 % 0-1 [facility] Bilirubin, totalOrdered By: Josue Leal on 04-29-2025 Bilirubin [Mass/Vol] 0.27 mg/dL 0.00-1.30 [facility] CBC W/Diff, Automatedon 04-02 Absolute Lymph 2.03 X10 3/uL Normal 0.83-4.51 [facility] Comment on above: Performed By: #### L 300.3900, L506.1001 #### [facility] Laboratory [address] [place], [address] Absolute Neut 2.5 X10 3/uL Normal 2.0-7.7 [facility] Comment on above: Performed By: #### L 300.3900, L506.1001 #### [facility] Laboratory [address] [place], [address] Basophils/100 WBC (Bld) 0.8 % Normal 0-1 [facility] Comment on above: Performed By: #### L 300.3900, L506.1001 #### [facility] Laboratory [address] [place], [address] Eosinophils/100 WBC (Bld) 4.4 % Normal 0-5 [facility] Comment on above: Performed By: #### L 300.3900, L506.1001 #### [facility] Laboratory [address] [place], [address] Erythrocyte distribution width (RBC) [Ratio] 13.6 % Normal 11.6-14.6 [facility] Comment on above: Performed By: #### L 300.3900, L506.1001 #### [facility] Laboratory [address] [place], [address] Hematocrit (Bld) [Volume fraction] 32.9 % Low 37-47 [facility] Comment on above: Performed By: #### L 300.3900, L506.1001 #### [facility] Laboratory [address] [place], [address] Hemoglobin (Bld) [Mass/Vol] 10.5 g/dL Low 12.0-15.0 [facility] Comment on above: Performed By: #### L 300.3900, L506.1001 #### [facility] Laboratory [address] [place], [address] IG% 0.200 Normal 0.0-0.9 [facility] Comment on above: Result Comment: IG% - Immature Granulocytes (promyelocytes, myelocytes and metamyelocytes) > 1% indicates that a LEFT SHIFT is Present. Performed By: #### L 300.3900, L506.1001 #### [facility] Laboratory [address] [place], [address] Lymphocytes/100 WBC (Bld) 38.8 % Normal 19-41 [facility] Comment on above: Performed By: #### L 300.3900, L506.1001 #### [facility] Laboratory [address] [place], [address] MCH (RBC) [Entitic mass] 30.9 pg Normal 27.0-32.0 [facility] Comment on above: Performed By: #### L 300.3900, L506.1001 #### [facility] Laboratory [address] [place], [address] MCHC (RBC) [Mass/Vol] 31.9 g/dL Low 32-36 [facility] Comment on above: Performed By: #### L 300.3900, L506.1001 #### [facility] Laboratory [address] [place], [address] MCV (RBC) [Entitic vol] 96.8 fL Normal 81-99 [facility] Comment on above: Performed By: #### L 300.3900, L506.1001 #### [facility] Laboratory [address] [place], [address] Monocytes/100 WBC (Bld) 7.6 % Normal 0-10 [facility] Comment on above: Performed By: #### L 300.3900, L506.1001 #### [facility] Laboratory [address] [place], [address] Neutrophils/100 WBC (Bld) 48.2 % Normal 47-70 [facility] Comment on above: Performed By: #### L 300.3900, L506.1001 #### [facility] Laboratory [address] [place], [address] Nucleated RBC (Bld) [#/Vol] 0 10*3/uL Normal 0-5 [facility] Comment on above: Performed By: #### L 300.3900, L506.1001 #### [facility] Laboratory [address] [place], [address] Platelet mean volume (Bld) [Entitic vol] 9.6 fL Normal 6.2-12.0 [facility] Comment on above: Performed By: #### L 300.3900, L506.1001 #### [facility] Laboratory [address] [place], [address] Platelets (Bld) [#/Vol] 204 10*3/uL Normal 150-450 [facility] Comment on above: Performed By: #### L 300.3900, L506.1001 #### [facility] Laboratory [address] [place], [address] RBC (Bld) [#/Vol] 3.40 10*6/uL Low 4.2-5.4 [facility] Comment on above: Performed By: #### L 300.3900, L506.1001 #### [facility] Laboratory [address] [place], [address] RDW SD 48.9 fl High 35.1-43.9 [facility] Comment on above: Performed By: #### L 300.3900, L506.1001 #### [facility] Laboratory [address] [place], [address] WBC (Bld) [#/Vol] 5.2 10*3/uL Normal 4.4-11.0 [facility] Comment on above: Performed By: #### L 300.3900, L506.1001 #### [facility] Laboratory [address] [place], [address] CBC-Complete Blood Cnt No Di ffon 04-29-2025 Erythrocyte distribution width (RBC) [Ratio] 13.7 % Normal 11.6-14.6 [facility] Comment on above: Performed By: #### L 9200.0000 #### [facility] Laboratory [address] [place], [address] Hematocrit (Bld) [Volume fraction] 33.0 % Low 37-47 [facility] Comment on above: Performed By: #### L 9200.0000 #### [facility] Laboratory [address] [place], [address] Hemoglobin (Bld) [Mass/Vol] 10.5 g/dL Low 12.0-15.0 [facility] Comment on above: Performed By: #### L 9200.0000 #### [facility] Laboratory [address] [place], [address] MCH (RBC) [Entitic mass] 30.7 pg Normal 27.0-32.0 [facility] Comment on above: Performed By: #### L 9200.0000 #### [facility] Laboratory [address] [place], [address] MCHC (RBC) [Mass/Vol] 31.8 g/dL Low 32-36 [facility] Comment on above: Performed By: #### L 9200.0000 #### [facility] Laboratory [address] [place], [address] MCV (RBC) [Entitic vol] 96.5 fL Normal 81-99 [facility] Comment on above: Performed By: #### L 9200.0000 #### [facility] Laboratory [address] [place], [address] Platelet mean volume (Bld) [Entitic vol] 9.7 fL Normal 6.2-12.0 [facility] Comment on above: Performed By: #### L 9200.0000 #### [facility] Laboratory [address] [place], [address] Platelets (Bld) [#/Vol] 203 10*3/uL Normal 150-450 [facility] Comment on above: Performed By: #### L 9200.0000 #### [facility] Laboratory [address] [place], [address] RBC (Bld) [#/Vol] 3.42 10*6/uL Low 4.2-5.4 [facility] Comment on above: Performed By: #### L 9200.0000 #### [facility] Laboratory [address] [place], [address] RDW SD 48.6 fl High 35.1-43.9 [facility] Comment on above: Performed By: #### L 9200.0000 #### [facility] Laboratory [address] [place], [address] WBC (Bld) [#/Vol] 5.3 10*3/uL Normal 4.4-11.0 [facility] Comment on above: Performed By: #### L 9200.0000 #### [facility] Laboratory [address] [place], [address] Carbon dioxide, total [Moles /volume] in Central venous bloodOrdered By: Josue Leal on 04-29-2025 CO2 [Moles/Vol] 25.4 mmol/L 21.0-32.0 [facility] Chloride assayOrdered By: Rubi Leal on 04-29-2025 Chloride [Moles/Vol] 106 mmol/L 98-108 [facility] Comprehensive Metabolic Prof ilon 04-29-2025 Albumin [Mass/Vol] 3.8 g/dL Normal 3.4-4.8 [facility] Comment on above: Performed By: #### L 300.3900, L506.1001 #### [facility] Laboratory [address] [place], [address] Albumin/Globulin [Mass ratio] 1.6 {ratio} Normal 0.9-2.4 [facility] Comment on above: Performed By: #### L 300.3900, L506.1001 #### [facility] Laboratory [address] [place], [address] ALK PHOS 39 U/L Normal 35-104 [facility] Comment on above: Performed By: #### L 300.3900, L506.1001 #### [facility] Laboratory [address] [place], [address] ALT [Catalytic activity/Vol] 14 U/L Normal <=34 [facility] Comment on above: Performed By: #### L 300.3900, L506.1001 #### [facility] Laboratory [address] [place], [address] AST [Catalytic activity/Vol] 25 U/L Normal <=31 [facility] Comment on above: Performed By: #### L 300.3900, L506.1001 #### [facility] Laboratory [address] [place], [address] Bilirubin [Mass/Vol] 0.27 mg/dL Normal 0.00-1.30 [facility] Comment on above: Performed By: #### L 300.3900, L506.1001 #### [facility] Laboratory [address] [place], [address] BUN/CRE 14.4 RATIO Normal 10-20 [facility] Comment on above: Performed By: #### L 300.3900, L506.1001 #### [facility] Laboratory [address] [place], [address] Calcium [Mass/Vol] 8.7 mg/dL Normal 7.6-11.0 [facility] Comment on above: Performed By: #### L 300.3900, L506.1001 #### [facility] Laboratory [address] [place], [address] Chloride [Moles/Vol] 106 mmol/L Normal 98-108 [facility] Comment on above: Performed By: #### L 300.3900, L506.1001 #### [facility] Laboratory [address] [place], [address] CO2 [Moles/Vol] 25.4 mmol/L Normal 21.0-32.0 [facility] Comment on above: Performed By: #### L 300.3900, L506.1001 #### [facility] Laboratory [address] [place], [address] Creatinine [Mass/Vol] 1.21 mg/dL High 0.70-1.20 [facility] Comment on above: Performed By: #### L 300.3900, L506.1001 #### [facility] Laboratory [address] [place], [address] GAP 9 Normal 5-15 [facility] Comment on above: Performed By: #### L 300.3900, L506.1001 #### [facility] Laboratory [address] [place], [address] GFR/1.73 sq M.predicted among non-blacks MDRD (S/P/Bld) [Vol rate/Area] 45 mL/min/{1.73_m2} Low >60 [facility] Comment on above: Result Comment: mL/m in/1.73m2 CKD-EPI Creatinine Equation (2020) Performed By: #### L 300.3900, L506.1001 #### [facility] Laboratory [address] [place], [address] Globulin (S) [Mass/Vol] 2.4 g/dL Normal 2.2-4.2 [facility] Comment on above: Performed By: #### L 300.3900, L506.1001 #### [facility] Laboratory [address] [place], [address] Glucose [Mass/Vol] 84 mg/dL Normal 70-99 [facility] Comment on above: Performed By: #### L 300.3900, L506.1001 #### [facility] Laboratory [address] [place], [address] Potassium [Moles/Vol] 4.4 mmol/L Normal 3.3-5.1 [facility] Comment on above: Performed By: #### L 300.3900, L506.1001 #### [facility] Laboratory [address] [place], [address] Sodium [Moles/Vol] 141 mmol/L Normal 133-145 [facility] Comment on above: Performed By: #### L 300.3900, L506.1001 #### [facility] Laboratory [address] [place], [address] T PROT 6.3 g/dL Normal 5.9-8.4 [facility] Comment on above: Performed By: #### L 300.3900, L506.1001 #### [facility] Laboratory [address] [place], [address] Urea nitrogen [Mass/Vol] 17 mg/dL Normal 4-19 [facility] Comment on above: Performed By: #### L 300.3900, L506.1001 #### [facility] Laboratory [address] [place], [address] Eosinophil percentageOrdered By: Josue Leal on 04-29-2025 Eosinophils/100 WBC (Bld) 4.4 % 0-5 [facility] Erythrocyte distribution wid th ratioOrdered By: Josue Leal on 04-29-2025 Erythrocyte distribution width (RBC) [Ratio] 13.6 % 11.6-14.6 [place] [facility] Erythrocyte distribution wid th standard deviationOrdered By: Josue Leal on 04-29-2025 Erythrocyte distribution width (RBC) [Ratio] 48.9 fl High 35.1-43.9 [facility] Glomerular filtration rate ( GFR) estimation/1.73 sq m using serum, plasma, or whole bOrdered By: Josue Leal on 04-29-2025 GFR/1.73 sq M.predicted among non-blacks MDRD (S/P/Bld) [Vol rate/Area] 45 mL/min/{1.73_m2} Low >60 [facility] Comment on above: mL/min/1.73m2 CKD-EP I Creatinine Equation (2020) Hematocrit Auto (Bld) [Volum e fraction]Ordered By: Josue Leal on 04-29-2025 Hematocrit (Bld) [Volume fraction] 32.9 % Low 37-47 [facility] Hemoglobin measurementOrdere d By: Josue Leal on 04-29-2025 Hemoglobin (Bld) [Mass/Vol] 10.5 g/dL Low 12.0-15.0 [facility] Immature granulocytes/100 WB C Auto (Bld)Ordered By: Josue Leal on 04-29-2025 Immature granulocytes/100 WBC (Bld) 0.200 % 0.0-0.9 [facility] Comment on above: IG% - Immature Granu locytes (promyelocytes, myelocytes and metamyelocytes) > 1% indicates that a LEFT SHIFT is Present. LDHon 04-29-2025 LDH 177 U/L Normal 84-246 [facility] Comment on above: Order Comment: Order Date: 08/16/25 Order Info: [id number] - CMP Order Info: [id number] - LIPID Order Info: [id number] - TSH INR RESULTS GO TO DR Performed By: #### L 300.3900, L506.1001 #### [facility] Laboratory [address] [place], [address] Laboratory - Chemistry and C hemistry - challengeOrdered By: Josue Leal on 04-29-2025 AST [Catalytic activity/Vol] 25 U/L <32 [facility] Lactate dehydrogenase (LDH) measurementOrdered By: Josue Leal on 04-29-2025 LDH [Catalytic activity/Vol] 177 U/L 84-246 [facility] MCV (mean corpuscular volume ) determinationOrdered By: Josue Leal on 04-29-2025 MCV (RBC) [Entitic vol] 96.8 fL 81-99 [facility] Mean corpuscular hemoglobin (MCH) determinationOrdered By: Josue Leal on 04-29-2025 MCH (RBC) [Entitic mass] 30.9 pg 27.0-32.0 [facility] Mean corpuscular hemoglobin concentration (MCHC) determinationOrdered By: Josue Leal on 04-29-2025 MCHC (RBC) [Mass/Vol] 31.9 g/dL Low 32-36 [facility] Mean platelet volume determi nationOrdered By: Josue Leal on 04-29-2025 Platelet mean volume (Bld) [Entitic vol] 9.6 fL 6.2-12.0 [facility] Monocyte percentageOrdered B y: Josue Leal on 04-29-2025 Monocytes/100 WBC (Bld) 7.6 % 0-10 [facility] Neutrophil percentageOrdered By: Josue Leal on 04-29-2025 Neutrophils/100 WBC (Bld) 48.2 % 47-70 [facility] Nucleated red blood cell per centageOrdered By: Josue Leal on 04-29-2025 Nucleated RBC/100 WBC (Bld) [Ratio] 0 % 0-5 [facility] Platelet countOrdered By: Rubi Leal on 04-29-2025 Platelets (Bld) [#/Vol] 204 10*3/uL 150-450 [facility] Potassium measurement (mass/ volume)Ordered By: Josue Leal on 04-29-2025 Potassium (Unsp spec) [Mass/Vol] 4.4 mmol/L 3.3-5.1 [facility] RBC Auto (Bld) [#/Vol]Ordere d By: Josue Leal on 04-29-2025 RBC (Bld) [#/Vol] 3.40 10*6/uL Low 4.2-5.4 [facility] Serum creatinine measurement (mass/volume)Ordered By: Josue Leal on 04-29-2025 Creatinine [Mass/Vol] 1.21 mg/dL High 0.70-1.20 [facility] Serum globulin measurementOr dered By: Josue Leal on 04-29-2025 Globulin (S) [Mass/Vol] 2.4 g/dL 2.2-4.2 [facility] Serum glucose measurement (m ass/volume)Ordered By: Josue Leal on 04-29-2025 Glucose [Mass/Vol] 84 mg/dL 70-99 [facility] Serum or plasma alanine weston otransferase (ALT) measurementOrdered By: Josue Leal on 04-29-2025 ALT [Catalytic activity/Vol] 14 U/L <35 [facility] Serum or plasma albumin pk urement (mass/volume)Ordered By: Josue Leal on 04-29-2025 Albumin [Mass/Vol] 3.8 g/dL 3.4-4.8 [facility] Serum or plasma albumin/glob ulin mass ratioOrdered By: Josue Leal on 04-29-2025 Albumin/Globulin [Mass ratio] 1.6 {ratio} 0.9-2.4 [facility] Serum or plasma alkaline aakash sphatase measurementOrdered By: Josue Leal on 04-29-2025 ALP [Catalytic activity/Vol] 39 U/L 35-104 [facility] Serum or plasma calcium pk urement (mass/volume)Ordered By: Josue Leal on 04-29-2025 Calcium [Mass/Vol] 8.7 mg/dL 7.6-11.0 [facility] Serum or plasma urea nitroge n measurement (mass/volume)Ordered By: Josue Leal on 04-29-2025 Urea nitrogen [Mass/Vol] 17 mg/dL 4-19 [facility] Sodium levelOrdered By: Aram Leal on 04-29-2025 Sodium [Moles/Vol] 141 mmol/L 133-145 [facility] Total proteinOrdered By: Gonzalo Leal on 04-29-2025 Protein [Mass/Vol] 6.3 g/dL 5.9-8.4 [facility] Type AND Screen - PAT ONLYon 04-29-2025 ABO and Rh group Nom (Bld) Blood group B Rh(D) positive Normal [facility] Comment on above: Order Comment: Order Date: 08/16/25 Order Info: [id number] - CMP Order Info: [id number] - LIPID Order Info: [id number] - TSH INR RESULTS GO TO DR Performed By: #### L 300.3900, L506.1001 #### [facility] Laboratory [address] [place], [address] White blood cell (WBC) count Ordered By: Josue Leal on 04-29-2025 WBC (Bld) [#/Vol] 5.2 10*3/uL 4.4-11.0 [facility] [employer] Senior Associate Office Visit Reporton 04-06-2025 Workday Senior Associate Office Visit Report [facility] [address], [address] [place] [address] OFFICE VISIT Date of Service: 04/06/25 MR#: [id number] Acct: [id number] Name: GAYATHRI CORREIA Rep #: [id number] : 1945 Provider: Dr. Senait Gimenez DO Age/Sex: 79/F Location: [facility] Status: Signed Intake Vital Signs 02/26/25 08:22 03/30/25 08:08 04/06/25 08:35 Height 4 ft 10 in 4 ft 10 in 4 ft 10 in Weight: 198 lb 8 oz BMI 41.5 BP 104/71 Intake Visit Reasons: VAGINAL BLEEDING Early Childhood Required: No Is patient in pain?: No Allergies No Known Allergies Allergy (Verified 04/06/25 08:44) Medications ???Medication ???Instructions ???Recorded ???Confirmed ???Type [id number] 8 mg-folic 400 1 ea PO DAILY supplement 03/02/17 04/06/25 History mcg-K 50 mcg-lutein 300 mcg tablet gabapentin 300 mg capsule 300 mg PO BID pain 30 days #90 cap s 12/24/18 04/06/25 History coenzyme Q10 100 mg capsule 100 mg PO DAILY 08/09/21 04/06/25 History (Q-Sorb Co Q-10) melatonin 3 mg tablet 10 mg PO QHS sleep 02/07/22 History acetaminophen 500 mg tablet 1,000 mg PO ONCE 11/09/22 04/06/25 History calcium carbonate (Calcium 600) 600 mg PO BID 11/09/22 04/06/25 Hi story cholecalciferol (vitamin D3) 50 50 mcg PO BID 11/09/22 04/06/25 Hi story mcg (2,000 unit) capsule pyridoxine (vitamin B6) 100 mg 100 mg PO DAILY supplement 2 04/06/25 History tablet oxycodone-acetamino phen 5 mg-325 tab PO 08/19/24 04/06/25 History mg tablet tamoxifen 20 mg tablet 20 mg PO DAILY #90 TABLETS 4 04/06/25 Rx escitalopram oxalate 10 mg tablet 10 mg PO QDAY 02/26/25 04/06/25 H istory warfarin 3 mg tablet 3 mg PO .COMPLEX #90 TABLETS 03/0804/06/25 Rx furosemide 40 mg tablet 40 mg PO DAILY #90 tabs 03/10/25 0 04/06/25 Rx metoprolol succinate 25 mg 25 mg PO .COMPLEX afib #180 tabs 0 03/15/25 04/06/25 Rx tablet,extended release 24 hr atorvastatin 10 mg tablet 10 mg PO DAILY #90 tabs 03/22/25 0 04/06/25 Rx losartan 100 mg tablet 100 mg PO DAILY #90 tabs 03/22/25 04/06/25 Rx Is last menstrual period known: No Post menopausal: Yes Patient : No : No PFSH PFSH Medical History Osteoporosis Sleep apnea with use of continuous positive airway pressure (CPAP) Cataract, left eye Irritable bowel Wrist fracture, left Lung nodule, multiple Encounter for education Breast cancer, right breast Malignant neoplasm of central portion of right female breast Paroxysmal atrial flutter Spinal stenosis 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 Paroxysmal atrial fibrillation Obesity Type 2 diabetes mellitus Surgical History Status post right breast lumpectomy S/P right breast biopsy (03/05/19) S/P shoulder surgery H/O dilation and curettage H/O hand surgery S/P carpal tunnel release h/o breast lumpectomy H/O: hysterectomy H/O total knee replacement History of tonsillectomy History of back surgery History of radiofrequency ablation procedure for cardiac arrhythmia (03/20/11) History of gastric bypass Family History Sister CVA (cerebral vascular accident) Father CAD (coronary artery disease) Hypertension Mother Hypertension CAD (coronary artery disease) Social History (Updated 04/06/25 @ 08:45 by Jesica Valdez) Smoking Status: Never smoker Electronic Cigarette Use: not used second hand exposure: Yes (Childhood ) alcohol intake: current alcohol intake frequency: holidays/special occasions only Alcohol type: wine substance use type: does not use additional social history: History 3 Elective abortions Hx Para 3 Spontaneous abortions Hx # Term Pregnancies Ectopic pregnancies Hx # Pregnancies Multiple births # of living children Past Pregnancies Del. Date Name GA/Weeks Outcome Route Bth Weight [facility] F[facility] Unknown Sergey Unknown Anuel Unknown Akiko HPI VAGINAL BLEEDING Details: GAYATHRI CORREIA is a 79 year old who presents for 2 episodes of bleeding in the last year. First one was last October and the second was in January. She states that both were just one time, one day. it was a strip of blood on her pad that was about 3 cm x 2 cm and bright red. In October the ambulance brought her to the ER for urinary retention. She wore a catheter for a week then followed up with Dr. Wade. She sees her again in May this year. She is status post total hysterectomy with BSO in 1989. ROS Const Constitutional: Reports as per HPI; Denies fatigue (more content not included)... Normal [facility] PT D/C Summary (1)on 025 PT D/C Summary (1) [facility] Physical Therapy Health[address] [place] [address] / REHABILITATION SERVICES DISCHARGE SUMMARY MR#: [id number] Acct: [id number] Name: GAYATHRI CORREIA Rep #: [id number] : 1945 79 From: Murray Quintana PT, Cert. T, OCS Referring Dr.: Dr. Daniel Lai MD Status: REG RCR Insurance: [employer] PPO SELF PAY INSURANCE Discharge Summary D/C summary: It has been my pleasure to treat GAYATHRI CORREIA referred by Dr. Daniel Lai MD, with the diagnosis of LUMBAR DDD WITH IMPINGEMENT RIGHT L5 for a total of 9 visit(s). Discharge Date: 04/06/25 Please see the following information for a summary of their discharge status. Subjective Subjective: Patient states happy with progress Ready with d/c Pain Right Back: Pain Intensity (Out of 10): 2 Right Lower Extremity: Pain Intensity (Out of 10): 2 Overall Improvement % Improvement: 90 Objective Objective/Function: POSTURE: mild forward posture hips/knees flexed GAIT: reciprocal pattern with 2 point gait antalgic gait with quad cane (dont use cane at home) PALPATION: render right SI /LS NEURO: denies paresthesia/tinglin g, reflexes L3-4 ,L4-5,L5- S1 1/3 LUMBAR ROM: flexion mod loss ,extension severe loss.side glides mod loss MMT: quads/hams 4/5 ,ankle 4-/5 ,ankle 4/5 FLEXABILITY: hamstrings mod tight Goals Goal 1:: Patient to be I with HEP for back Goal Progress: Goal Met Goal 2:: Patient to improve lumbar ROM for function of recovery to put on shoes Goal Progress: Goal Met Goal 3:: Patient to improve back oswestry score by 5 points to improve QOL and function Goal Progress: Goal Met Goal 4:: Patient to ambulate further distances with less pain and improvement ADLS by 50% Goal 5:: Patient to demonstrate 50% improvement with less pain and function Goal Progress: Goal Met Plan Plan: D/C TO HEP D/C Information Discharge Comments: d/c home ex's d/c sentence: If there are questions or concerns regarding this patient's physical therapy, please feel free to call me at [phone]. Thank you for the referral of this patient. Sincerely, Murray Quintaan, PT, Cert MDT, OCS Balance/Gait/Functi onal tests Balance/Special Test Scores Oswestry Low Back Score: 13 Improvement % Improvement: 90 04/06/25 1052 CC: Dr. Daniel Lai MD DOMITILA Signed Normal [facility] Echo Completeon 03-26-2025 Echo Complete [facility] [address] [place] [address] Echo Complete 03/26/25 1409 MR#: [id number] Acct: [id number] Name: GAYATHRI CORREIA Rep #: [id number] : 1945 79 From: Juni Epstein MD Attending Dr: Dr. Juni Epstein MD Status: REG C Ordering Dr: Juni Epstein MD Date: 03/26/25 Location: [facility] Sex: F C Admitted: Reason For Study Reason For Study: MURMUR Procedure This was a 2D Doppler, Color Flow transthoracic echocardiogram. Myocardial strain analysis was performed in this exam to aid in the assessment of cardiac function. Exam performed in department. Left Ventricle Normal LV size. Left ventricular systolic function is normal. The left ventricular ejection fraction is 60 %. No regional wall motion abnormalities noted. Right Ventricle Normal RV size. Normal systolic function. Atria Normal left atrium. Normal right atrium. Mitral Valve Bileaflet diffuse mitral valve thickening. There is mild mitral annular calcification. Mild (1+) eccentric mitral valve insufficiency. Tricuspid Valve Normal tricuspid valve. Aortic Valve Trisinus/trileaflet aortic valve. Mild focal aortic valve calcification. Mild (1+) aortic valve insufficiency. Pulmonic Valve Normal pulmonic valve. Great Vessels Mild to moderately dilated aortic root. The pulmonary artery is normal size. Inferior vena cava collapse with respiration. Pericardium/Pleural No pericardial effusion. MMode/2D Measurements Calculations LVIDd: 4.1 cm IVSd: 1.4 cm LVOT diam: 2.0 cm LVIDs: 2.2 cm LVPWd: 1.1 cm LVOT area: 3.1 cm2 FS: 45.6 % __ Ao root diam: 3.6 cm LAV(MOD-bp): 35.7 ml LVAd ap4: 22.8 cm2 LAV(MOD-bp) Indexed: 19.6 ml/m2 LVLd ap4: 7.3 cm LAV(MOD-sp2): 37.3 ml EDV(MOD-sp4): 59.4 ml LAV(MOD-sp4): 33.6 ml EDV(sp4-el): 60.2 ml LVAs ap4: 12.4 cm2 LVLs ap4: 5.7 cm ESV(MOD-sp4): 22.0 ml ESV(sp4-el): 23.0 ml EF(MOD-sp4): 63.0 % EF(sp4-el): 61.8 % __ SV(MOD-sp4): 37.4 ml SV(sp4-el): 37.2 ml LA A4 area: 14.2 cm2 SI(MOD-sp4): 20.6 ml/m2 __ LA dimension(2D): 3.1 cm RA A4 area: 13.6 cm2 Time Measurements MV dec time: 0.23 sec Doppler Measurements Calculations MV E max opal: 78.1 cm/sec Lat Peak E' Opal: 9.1 cm/sec Med Peak E' Opal: 8.7 cm/sec MV A max opal: 106.9 cm/sec E/E' lat: 8.5 E/E' med: 9.0 MV E/A: 0.73 __ MV V2 max: 117.4 cm/sec Ao V2 max: 221.7 cm/sec MV max P.5 mmHg MV dec slope: 340.9 cm/sec2 Ao max P.7 mmHg MV V2 mean: 67.9 cm/sec Ao V2 mean: 167.7 cm/sec MV mean P.2 mmHg Ao mean P.4 mmHg MV V2 VTI: 44.0 cm Ao V2 VTI: 51.2 cm AV (velocity ratio): 0.69 MVA(VTI): 2.5 cm2 COLEMAN(I,D): 2.2 cm2 COLEMAN(V,D): 2.0 cm2 __ AI max opal: 457.5 cm/sec LV V1 max: 140.3 cm/sec SV(LVOT): 110.3 ml AI max P.8 mmHg LV V1 max P.9 mmHg LV V1 mean P.4 mmHg AI dec slope: 270.7 cm/sec2 LV V1 mean: 112.3 cm/sec AI P1/2t: 495.0 msec LV V1 VTI: 35.4 cm ECHO/Echo Complete Interpretation Summary Normal LV size. Left ventricular systolic function is normal. The left ventricular ejection fraction is 60 %. Mild to moderately dilated aortic root. The global longitudinal strain is normal. The global longitudinal strain = -18.8 % (normal). __ Ordering Physician: Juni Epstein Referring Physician: Juni Epstein Performed By: Karma Shukla RCS 03/30/25 08 Date Juni Epstein MD CC: Dr. Daniel Lai MD; Dr. Juni Epstein MD Date Dictated: 03/26/25 1409 Date Transcribed: 03/30/25802 Final Inspector Movement Assembly: Signed Normal [facility] Absolute lymphocyte countOrd ered By: Josue Leal on 03-22-2025 Lymphocytes Auto (Unsp spec) [#/Vol] 2.04 10*3/uL 0.83-4.51 [facility] Absolute neutrophil countOrd ered By: Josue Leal on 03-22-2025 Neutrophils (Bld) [#/Vol] 2.5 10*3/uL 2.0-7.7 [facility] Anion gap in Serum or Plasma Ordered By: Josue Leal on 03-22-2025 Anion gap [Moles/Vol] 26 mmol/L High 5-15 [facility] Automated lymphocyte count a s percentage of total leukocytesOrdered By: Josue Leal on 03-22-2025 Lymphocytes/100 WBC Auto (Unsp spec) 38.6 % 19-41 [facility] BUN/creatinine ratioOrdered By: Josue Leal on 03-22-2025 Urea nitrogen/Creatinine [Mass ratio] 14.9 mg/mg 10-20 [facility] Basophil percentageOrdered B y: Josue Leal on 03-22-2025 Basophils/100 WBC (Bld) 0.8 % 0-1 [facility] Bilirubin, totalOrdered By: Josue Leal on 03-22-2025 Bilirubin [Mass/Vol] 0.32 mg/dL 0.00-1.30 [facility] CBC W/Diff, Automatedon 04-2 -2024 Absolute Lymph 2.04 X10 3/uL Normal 0.83-4.51 [facility] Comment on above: Performed By: #### L 503.6030, L504.2610, L500.4050, L100.0100, L503.6550 #### [facility] Laboratory [address] [place], [address] Absolute Neut 2.5 X10 3/uL Normal 2.0-7.7 [facility] Comment on above: Performed By: #### L 503.6030, L504.2610, L500.4050, L100.0100, L503.6550 #### [facility] Laboratory [address] [place], [address] Basophils/100 WBC (Bld) 0.8 % Normal 0-1 [facility] Comment on above: Performed By: #### L 503.6030, L504.2610, L500.4050, L100.0100, L503.6550 #### [facility] Laboratory [address] [place], [address] Eosinophils/100 WBC (Bld) 5.1 % High 0-5 [facility] Comment on above: Performed By: #### L 503.6030, L504.2610, L500.4050, L100.0100, L503.6550 #### [facility] Laboratory [address] [place], [address] Erythrocyte distribution width (RBC) [Ratio] 13.9 % Normal 11.6-14.6 [facility] Comment on above: Performed By: #### L 503.6030, L504.2610, L500.4050, L100.0100, L503.6550 #### [facility] Laboratory [address] [place], [address] Hematocrit (Bld) [Volume fraction] 35.8 % Low 37-47 [facility] Comment on above: Performed By: #### L 503.6030, L504.2610, L500.4050, L100.0100, L503.6550 #### [facility] Laboratory [address] [place], [address] Hemoglobin (Bld) [Mass/Vol] 11.3 g/dL Low 12.0-15.0 [facility] Comment on above: Performed By: #### L 503.6030, L504.2610, L500.4050, L100.0100, L503.6550 #### [facility] Laboratory [address] [place], [address] IG% 0.000 Normal 0.0-0.9 [facility] Comment on above: Result Comment: IG% - Immature Granulocytes (promyelocytes, myelocytes and metamyelocytes) > 1% indicates that a LEFT SHIFT is Present. Performed By: #### L 503.6030, L504.2610, L500.4050, L100.0100, L503.6550 #### [facility] Laboratory [address] [place], [address] Lymphocytes/100 WBC (Bld) 38.6 % Normal 19-41 [facility] Comment on above: Performed By: #### L 503.6030, L504.2610, L500.4050, L100.0100, L503.6550 #### [facility] Laboratory [address] [place], [address] MCH (RBC) [Entitic mass] 30.5 pg Normal 27.0-32.0 [facility] Comment on above: Performed By: #### L 503.6030, L504.2610, L500.4050, L100.0100, L503.6550 #### [facility] Laboratory [address] [place], [address] MCHC (RBC) [Mass/Vol] 31.6 g/dL Low 32-36 [facility] Comment on above: Performed By: #### L 503.6030, L504.2610, L500.4050, L100.0100, L503.6550 #### [facility] Laboratory [address] [place], [address] MCV (RBC) [Entitic vol] 96.8 fL Normal 81-99 [facility] Comment on above: Performed By: #### L 503.6030, L504.2610, L500.4050, L100.0100, L503.6550 #### [facility] Laboratory [address] [place], [address] Monocytes/100 WBC (Bld) 9.1 % Normal 0-10 [facility] Comment on above: Performed By: #### L 503.6030, L504.2610, L500.4050, L100.0100, L503.6550 #### [facility] Laboratory [address] [place], [address] Neutrophils/100 WBC (Bld) 46.4 % Low 47-70 [facility] Comment on above: Performed By: #### L 503.6030, L504.2610, L500.4050, L100.0100, L503.6550 #### [facility] Laboratory [address] [place], [address] Nucleated RBC (Bld) [#/Vol] 0 10*3/uL Normal 0-5 [facility] Comment on above: Performed By: #### L 503.6030, L504.2610, L500.4050, L100.0100, L503.6550 #### [facility] Laboratory [address] [place], [address] Platelet mean volume (Bld) [Entitic vol] 9.2 fL Normal 6.2-12.0 [facility] Comment on above: Performed By: #### L 503.6030, L504.2610, L500.4050, L100.0100, L503.6550 #### [facility] Laboratory [address] [place], [address] Platelets (Bld) [#/Vol] 205 10*3/uL Normal 150-450 [facility] Comment on above: Performed By: #### L 503.6030, L504.2610, L500.4050, L100.0100, L503.6550 #### [facility] Laboratory [address] [place], [address] RBC (Bld) [#/Vol] 3.70 10*6/uL Low 4.2-5.4 [facility] Comment on above: Performed By: #### L 503.6030, L504.2610, L500.4050, L100.0100, L503.6550 #### [facility] Laboratory [address] [place], [address] RDW SD 49.9 fl High 35.1-43.9 [facility] Comment on above: Performed By: #### L 503.6030, L504.2610, L500.4050, L100.0100, L503.6550 #### [facility] Laboratory [address] [place], [address] WBC (Bld) [#/Vol] 5.3 10*3/uL Normal 4.4-11.0 [facility] Comment on above: Performed By: #### L 503.6030, L504.2610, L500.4050, L100.0100, L503.6550 #### [facility] Laboratory [address] [place], [address] Carbon dioxide, total [Moles /volume] in Central venous bloodOrdered By: Josue Leal on 03-22-2025 CO2 [Moles/Vol] 10.8 mmol/L Low 21.0-32.0 [facility] Chloride assayOrdered By: Rubi Leal on 03-22-2025 Chloride [Moles/Vol] 104 mmol/L 98-108 [facility] Comprehensive Metabolic Prof ilon 03-22-2025 Albumin [Mass/Vol] 3.8 g/dL Normal 3.4-4.8 [facility] Comment on above: Performed By: #### L 503.6030, L504.2610, L500.4050, L100.0100, L503.6550 #### [facility] Laboratory [address] [place], [address] Albumin/Globulin [Mass ratio] 1.4 {ratio} Normal 0.9-2.4 [facility] Comment on above: Performed By: #### L 503.6030, L504.2610, L500.4050, L100.0100, L503.6550 #### [facility] Laboratory [address] [place], [address] ALK PHOS 43 U/L Normal 35-104 [facility] Comment on above: Performed By: #### L 503.6030, L504.2610, L500.4050, L100.0100, L503.6550 #### [facility] Laboratory [address] [place], [address] ALT [Catalytic activity/Vol] 11 U/L Normal <=34 [facility] Comment on above: Performed By: #### L 503.6030, L504.2610, L500.4050, L100.0100, L503.6550 #### [facility] Laboratory [address] [place], [address] AST [Catalytic activity/Vol] 27 U/L Normal <=31 [facility] Comment on above: Performed By: #### L 503.6030, L504.2610, L500.4050, L100.0100, L503.6550 #### [facility] Laboratory [address] [place], [address] Bilirubin [Mass/Vol] 0.32 mg/dL Normal 0.00-1.30 [facility] Comment on above: Performed By: #### L 503.6030, L504.2610, L500.4050, L100.0100, L503.6550 #### [facility] Laboratory [address] [place], [address] BUN/CRE 14.9 RATIO Normal 10-20 [facility] Comment on above: Performed By: #### L 503.6030, L504.2610, L500.4050, L100.0100, L503.6550 #### [facility] Laboratory [address] [place], [address] Calcium [Mass/Vol] 8.8 mg/dL Normal 7.6-11.0 [facility] Comment on above: Performed By: #### L 503.6030, L504.2610, L500.4050, L100.0100, L503.6550 #### [facility] Laboratory [address] [place], [address] Chloride [Moles/Vol] 104 mmol/L Normal 98-108 [facility] Comment on above: Performed By: #### L 503.6030, L504.2610, L500.4050, L100.0100, L503.6550 #### [facility] Laboratory [address] [place], [address] CO2 [Moles/Vol] 10.8 mmol/L Low 21.0-32.0 [facility] Comment on above: Performed By: #### L 503.6030, L504.2610, L500.4050, L100.0100, L503.6550 #### [facility] Laboratory [address] [place], [address] Creatinine [Mass/Vol] 1.27 mg/dL High 0.70-1.20 [facility] Comment on above: Performed By: #### L 503.6030, L504.2610, L500.4050, L100.0100, L503.6550 #### [facility] Laboratory [address] [place], [address] ECRCL 35.79 ml/min Low 50-250 [facility] Comment on above: Performed By: #### L 503.6030, L504.2610, L500.4050, L100.0100, L503.6550 #### [facility] Laboratory [address] [place], [address] GAP 26 High 5-15 [facility] Comment on above: Performed By: #### L 503.6030, L504.2610, L500.4050, L100.0100, L503.6550 #### [facility] Laboratory [address] [place], [address] GFR/1.73 sq M.predicted among non-blacks MDRD (S/P/Bld) [Vol rate/Area] 42 mL/min/{1.73_m2} Low >60 [facility] Comment on above: Result Comment: mL/m in/1.73m2 CKD-EPI Creatinine Equation (2020) Performed By: #### L 503.6030, L504.2610, L500.4050, L100.0100, L503.6550 #### [facility] Laboratory [address] [place], [address] Globulin (S) [Mass/Vol] 2.7 g/dL Normal 2.2-4.2 [facility] Comment on above: Performed By: #### L 503.6030, L504.2610, L500.4050, L100.0100, L503.6550 #### [facility] Laboratory [address] [place], [address] Glucose [Mass/Vol] 103 mg/dL High 70-99 [facility] Comment on above: Performed By: #### L 503.6030, L504.2610, L500.4050, L100.0100, L503.6550 #### [facility] Laboratory [address] [place], [address] Potassium [Moles/Vol] 4.6 mmol/L Normal 3.3-5.1 [facility] Comment on above: Performed By: #### L 503.6030, L504.2610, L500.4050, L100.0100, L503.6550 #### [facility] Laboratory [address] [place], [address] Sodium [Moles/Vol] 141 mmol/L Normal 133-145 [facility] Comment on above: Performed By: #### L 503.6030, L504.2610, L500.4050, L100.0100, L503.6550 #### [facility] Laboratory [address] [place], [address] T PROT 6.4 g/dL Normal 5.9-8.4 [facility] Comment on above: Performed By: #### L 503.6030, L504.2610, L500.4050, L100.0100, L503.6550 #### [facility] Laboratory [address] [place], [address] Urea nitrogen [Mass/Vol] 19 mg/dL Normal 4-19 [facility] Comment on above: Performed By: #### L 503.6030, L504.2610, L500.4050, L100.0100, L503.6550 #### [facility] Laboratory [address] [place], [address] Eosinophil percentageOrdered By: Josue Leal on 03-22-2025 Eosinophils/100 WBC (Bld) 5.1 % High 0-5 [facility] Erythrocyte distribution wid th ratioOrdered By: Josue Leal on 03-22-2025 Erythrocyte distribution width (RBC) [Ratio] 13.9 % 11.6-14.6 [facility] Erythrocyte distribution wid th standard deviationOrdered By: Josue Leal on 03-22-2025 Erythrocyte distribution width (RBC) [Ratio] 49.9 fl High 35.1-43.9 [facility] Ferritinon 03-22-2025 Ferritin [Mass/Vol] 54 ng/mL Normal 22-378 [facility] Comment on above: Performed By: #### L 503.6030, L504.2610, L500.4050, L100.0100, L503.6550 ####[facility] [id number] [place], [address] Glomerular filtration rate ( GFR) estimation/1.73 sq m using serum, plasma, or whole bOrdered By: Josue Leal on 03-22-2025 GFR/1.73 sq M.predicted among non-blacks MDRD (S/P/Bld) [Vol rate/Area] 42 mL/min/{1.73_m2} Low >60 [facility] Comment on above: mL/min/1.73m2 CKD-EP I Creatinine Equation (2020) Hematocrit Auto (Bld) [Volum e fraction]Ordered By: Josue Leal on 03-22-2025 Hematocrit (Bld) [Volume fraction] 35.8 % Low 37-47 [facility] Hemoglobin measurementOrdere d By: Josue Leal on 03-22-2025 Hemoglobin (Bld) [Mass/Vol] 11.3 g/dL Low 12.0-15.0 [facility] Immature granulocytes/100 WB C Auto (Bld)Ordered By: Josue Leal on 03-22-2025 Immature granulocytes/100 WBC (Bld) 0.000 % 0.0-0.9 [facility] Comment on above: IG% - Immature Granu locytes (promyelocytes, myelocytes and metamyelocytes) > 1% indicates that a LEFT SHIFT is Present. Iron measurement (mass/mass) Ordered By: Josue Leal on 03-22-2025 Iron (Unsp spec) [Mass/Mass] 82 ug/dL 50-170 [facility] Iron+Iron Binding Capacityon 03-22-2025 Iron [Mass/Vol] 82 ug/dL Normal 50-170 [facility] Comment on above: Performed By: #### L 503.6030, L504.2610, L500.4050, L100.0100, L503.6550 #### [facility] Laboratory [address] [place], [address] IRON SATURATION 27.0 Normal 13-59 [facility] Comment on above: Performed By: #### L 503.6030, L504.2610, L500.4050, L100.0100, L503.6550 #### [facility] Laboratory [address] [place], [address] TIBC 301 ug/dL Normal 250-450 [facility] Comment on above: Performed By: #### L 503.6030, L504.2610, L500.4050, L100.0100, L503.6550 #### [facility] Laboratory [address] [place], [address] UIBC 219 ug/dL Low 228-428 [facility] Comment on above: Performed By: #### L 503.6030, L504.2610, L500.4050, L100.0100, L503.6550 #### [facility] Laboratory [address] [place], [address] LDHon 03-22-2025 LDH 144 U/L Normal 84-246 [facility] Comment on above: Order Comment: 1 Performed By: #### L 503.6030, L504.2610, L500.4050, L100.0100, L503.6550 ####[facility] [id number] [place], [address] Laboratory - Chemistry and C hemistry - challengeOrdered By: Josue Leal on 03-22-2025 AST [Catalytic activity/Vol] 27 U/L <32 [facility] Lactate dehydrogenase (LDH) measurementOrdered By: Josue Leal on 03-22-2025 LDH [Catalytic activity/Vol] 144 U/L 84-246 [facility] MCV (mean corpuscular volume ) determinationOrdered By: Josue Leal on 03-22-2025 MCV (RBC) [Entitic vol] 96.8 fL 81-99 [facility] Mean corpuscular hemoglobin (MCH) determinationOrdered By: Josue Leal on 03-22-2025 MCH (RBC) [Entitic mass] 30.5 pg 27.0-32.0 [facility] Mean corpuscular hemoglobin concentration (MCHC) determinationOrdered By: Josue Leal on 03-22-2025 MCHC (RBC) [Mass/Vol] 31.6 g/dL Low 32-36 [facility] Mean platelet volume determi nationOrdered By: Josue Leal on 03-22-2025 Platelet mean volume (Bld) [Entitic vol] 9.2 fL 6.2-12.0 [facility] [facility] Monocyte percentageOrdered B y: Josue Leal on 03-22-2025 Monocytes/100 WBC (Bld) 9.1 % 0-10 [facility] Neutrophil percentageOrdered By: Josue Leal on 03-22-2025 Neutrophils/100 WBC (Bld) 46.4 % Low 47-70 [facility] No Panel InformationOrdered By: Josue Leal on 03-22-2025 Unsaturated Iron Binding Capacity 219 ug/dL Low 228-428 [facility] Nucleated red blood cell per centageOrdered By: Josue Leal on 03-22-2025 Nucleated RBC/100 WBC (Bld) [Ratio] 0 % 0-5 [facility] Oncology Visit Reporton 03-03 Oncology Visit Report [facility] [address] [place] [address] OFFICE VISIT Date of Service: 03/22/25 1334 MR#: [id number] Acct: [id number] Name: GAYATHRI CORREIA Buck Rep #: [id number] : 1945 From: Josue Leal MD Age/Sex: 79/F Location[place] [facility] [place] Status: Signed HPI Subjective Date of Service 03/15/25 Chief Complaint F/u for R breast cancer and osteoporosis. History of Present Illness 79 y.o.woman presented with abnormal mammogram on 02/25/2019 showed 1.3 cm upper outer quadrant mass in the right breast. She had ultrasound-guided biopsy of right breast on 03/05/2019. Pathology showed invasive ductal carcinoma, ER greater than 95%, AL greater than 95%, HER-2 0 staining by IHC. She had a right breast lumpectomy and sentinel node biopsy on 03/17/2019. Pathology showed Invasive ductal carcinoma with focal mucinous features, tumor size 2cm, grade 2, [place] node 1 is negative. Staging pT1c pN0. CT c/a/p on 03/31/2019 showed non-specific nodules, calcification in spleen. Bone scan on 04/03/2019 no metastatic disease. Bone density on 02/25/2019 showed Osteoporosis. She received adjuvant Radiation therapy from 04/29/2019-05/20/2019 . She started Adjuvant Tamoxifen on 06/09/2019. CT chest on 06/06/2020 showed stable nodules. CTA on2showed stable lung nodules. Bone density on 08/21/22 showed worsening osteoporosis. Remains on Tamoxifen. Comes for follow up. Has Low back pain/sciatica. [facility] Medical History Osteoporosis Sleep apnea with use of continuous positive airway pressure (CPAP) Cataract, left eye Irritable bowel Wrist fracture, left Lung nodule, multiple Encounter for education Breast cancer, right breast Malignant neoplasm of central portion of right female breast Paroxysmal atrial flutter Spinal stenosis Essential (primary) hypertension intermediate (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 of anticoagulants Paroxysmal atrial fibrillation Obesity Type 2 diabetes mellitus Surgical History Status post right breast lumpectomy S/P right breast biopsy (03/05/19) S/P shoulder surgery H/O dilation and curettage H/O hand surgery S/P carpal tunnel release h/o breast lumpectomy H/O: hysterectomy H/O total knee replacement History of tonsillectomy History of back surgery History of radiofrequency ablation procedure for cardiac arrhythmia (03/20/11) History of gastric bypass Family History Sister CVA (cerebral vascular accident) Father CAD (coronary artery disease) Hypertension Mother Hypertension CAD (coronary artery disease) Social History Smoking Status: Never smoker Electronic Cigarette Use: not used second hand exposure: Yes (Childhood ) alcohol intake: current alcohol intake frequency: holidays/special occasions only Alcohol type: wine substance use type: does not use Intake Vital Signs 09/14/24 11:25 03/22/25 13:36 Height 4 ft 10 in 4 ft 10 in Weight: 90.322 kg BMI 41.5 BP 137/80 H Blood Pressure Location Lt brachial Position Sitting Respiration 18 Pulse 64 Pulse Source Monitor Temp 98.3 F Temperature Source Temporal Artery Pulse Oximetry (%) 95 Oxygen Delivery Method room air Intake Is patient in pain?: Yes (back and legs) Pain scale (1-10): 2 Allergies No Known Allergies Allergy (Verified 03/22/25 13:35) Medications ???Medication ???Instructions ???Recorded ???Confirmed ???Type [id number] 8 mg-folic 400 1 ea PO DAILY supplement 03/02/17 03/22/25 History mcg-K 50 mcg-lutein 300 mcg tablet gabapentin 300 mg capsule 300 mg PO BID pain 30 days #90 cap s 12/24/18 03/22/25 History coenzyme Q10 100 mg capsule 100 mg PO DAILY 08/09/21 03/22/25 History (Q-Sorb Co Q-10) melatonin 3 mg tablet 10 mg PO QHS sleep 02/07/22 History acetaminophen 500 mg tablet 1,000 mg PO ONCE 11/09/22 03/22/25 History calcium carbonate (Calcium 600) 600 mg PO BID 11/09/22 03/22/25 Hi story cholecalciferol (vitamin D3) 50 50 mcg PO BID 11/09/22 03/22/25 Hi story mcg (2,000 unit) capsule pyridoxine (vitamin B6) 100 mg 100 mg PO DAILY supplement 2 03/22/25 History tablet oxycodone-acetamino phen 5 mg-325 tab PO 08/19/24 03/22/25 History mg tablet tamoxifen 20 mg tablet 20 mg PO DAILY #90 TABLETS 4 03/22/25 Rx escitalopram oxalate 10 mg tablet 10 mg PO QDAY 02/26/25 03/22/25 H istory warfarin 3 mg tablet 3 mg PO .COMPLEX #90 TABLETS 03/0803/22/25 Rx furosemide 40 mg tablet 40 mg PO DAILY #90 tabs 03/10/25 0 03/22/25 Rx metoprolol succinate 25 mg 25 mg PO .COMPLEX afib #180 tabs 0 03/15/25 03/22/25 Rx tablet,extended rele (more content not included)... Normal [facility] Platelet countOrdered By: Rubi Leal on 03-22-2025 Platelets (Bld) [#/Vol] 205 10*3/uL 150-450 [facility] Potassium measurement (mass/ volume)Ordered By: Josue Leal on 03-22-2025 Potassium (Unsp spec) [Mass/Vol] 4.6 mmol/L 3.3-5.1 [facility] RBC Auto (Bld) [#/Vol]Ordere d By: Josue Leal on 03-22-2025 RBC (Bld) [#/Vol] 3.70 10*6/uL Low 4.2-5.4 [facility] Serum creatinine measurement (mass/volume)Ordered By: Josue Leal on 03-22-2025 Creatinine [Mass/Vol] 1.27 mg/dL High 0.70-1.20 [facility] Serum globulin measurementOr dered By: Josue Leal on 03-22-2025 Globulin (S) [Mass/Vol] 2.7 g/dL 2.2-4.2 [facility] Serum glucose measurement (m ass/volume)Ordered By: Josue Leal on 03-22-2025 Glucose [Mass/Vol] 103 mg/dL High 70-99 [facility] Serum or plasma alanine weston otransferase (ALT) measurementOrdered By: Josue Leal on 03-22-2025 ALT [Catalytic activity/Vol] 11 U/L <35 [facility] Serum or plasma albumin pk urement (mass/volume)Ordered By: Josue Leal on 03-22-2025 Albumin [Mass/Vol] 3.8 g/dL 3.4-4.8 [facility] Serum or plasma albumin/glob ulin mass ratioOrdered By: Josue Leal on 03-22-2025 Albumin/Globulin [Mass ratio] 1.4 {ratio} 0.9-2.4 [facility] Serum or plasma alkaline aakash sphatase measurementOrdered By: Josue Mel on 03-22-2025 ALP [Catalytic activity/Vol] 43 U/L 35-104 [facility] Serum or plasma calcium pk urement (mass/volume)Ordered By: Josue Mel on 03-22-2025 Calcium [Mass/Vol] 8.8 mg/dL 7.6-11.0 [facility] Serum or plasma ferritin marianna surement (mass/volume)Ordered By: Josue Leal on 03-22-2025 Ferritin [Mass/Vol] 54 ng/mL 22-378 [facility] Serum or plasma iron saturat ion measurement (mass fraction)Ordered By: Josue Mel on 03-22-2025 Iron saturation [Mass fraction] 27.0 % 13-59 [facility] Serum or plasma urea nitroge n measurement (mass/volume)Ordered By: Josue Leal on 03-22-2025 Urea nitrogen [Mass/Vol] 19 mg/dL 4-19 [facility] Sodium levelOrdered By: Aram Leal on 03-22-2025 Sodium [Moles/Vol] 141 mmol/L 133-145 [facility] Total proteinOrdered By: Gonzalo Leal on 03-22-2025 Protein [Mass/Vol] 6.4 g/dL 5.9-8.4 [facility] White blood cell (WBC) count Ordered By: Josue Mel on 03-22-2025 WBC (Bld) [#/Vol] 5.3 10*3/uL 4.4-11.0 [facility] Inital Evaluation (1) - PTon 03-05-2025 Inital Evaluation (1) - PT [facility] Physical Therapy Health[address] [place] [address] / REHABILITATION SERVICES INITIAL EVALUATION MR#: [id number] Acct: [id number] Name: GAYATHRI CORREIA Rep #: [id number] : 1945 79 From: Murray Quintana PT, Cert. T, OCS Referring Dr.: Dr. Daniel Lai MD Status: REG RCR Insurance: [employer] PPO SELF PAY INSURANCE Patient's Visit Information Visit Information Visit Information: GAYATHRI CORREIA is a 79 year old F referred to Physical Therapy by Dr. Daniel Lai MD with a diagnosis of LUMBAR DDD WITH IMPINGEMENT RIGHT L5. Date of Evaluation: 03/05/25 Physical Therapist: Murray Quintana, PT, Cert MDT, OCS Visit Plan Frequency: 2x /Week Duration: 4 Weeks Plan: PT INTERVENTIONS DLS ,POSTURAL EX'S ,LE FLEXABILITY ,BLE STRENGTHENING ,ACTIVITY MODIFICATION AND MODALITIES PRN Subjective Subjective: ThIS 79 y/o female presents to physical therapy with lumbar radiculopathy RLE . Patient has had lumbar radiculopathy many years with patient having lumbar fusion 22 years ago. Symptoms progressively worse with past [address] Christensen stated not candidate for surgery. Seen DR Lai recommended PT and oxycodone ,gabapentin Patient has seen Dr Heath 2 years ago. Patient recommended pain management to see DR Sevilla. Patient had x-rays showed Moderate rotatory thoracolumbar scoliosis unchanged,11 mm of anterolisthesis of L4 on L3, unchanged. 6 mm of anterolisthesis of L4 on L5, unchanged Posterior fusion at L4-5, unchanged. MRI showed HNP and stenosis. . Bone Density high risk for fracture ,osteoporosis . Patient pain located right lumbar with radicular symptoms right lateral leg. Aggravating factors walking and standing <10mins ,bending unable, lifting . Alleviating sitting ,resting. Coughing/sneezing-. Bowel/bladder-. C/O paresthesia/tinglin g -.Patient sleeping good. Patient has limitations with ADLS and housework due to limitations with standing and walking. Patient goals to decrease pain. SOCAIL:Lives with daughter Pain Right Back: Pain Intensity (Out of 10): 6 Pain Intensity Range: 10 Right Lower Extremity: Pain Intensity (Out of 10): 0 Pain Intensity Range: 10 Objective Objective: POSTURE: mild forward posture hips/knees flexed GAIT: reciprocal pattern with 2 point gait antalgic gait with quad cane ( has rollator as needed ) PALPATION: render right SI /LS NEURO: denies paresthesia/tinglin g, reflexes L3-4 ,L4-5,L5- S1 1/3 LUMBAR ROM: flexion mod loss ,extension severe loss.side glides mod loss MMT: quads/hams 4/5 ,ankle 4-/5 ,ankle 4/5 FLEXABILITY: hamstrings mod tight Special Tests L/S Slump test left side: Negative L/S Slump test right side: Negative L/S Left Straight Leg Raise: Negative L/S Right Straight Leg Raise: Negative Balance/Special Test Scores Oswestry Low Back Score: 26 Goals Goal 1:: Patient to be I with HEP for back Goal Time Frame: 4-6 Weeks Goal 2:: Patient to improve lumbar ROM for function of recovery to put on shoes Goal Time Frame: 4-6 Weeks Goal 3:: Patient to improve back oswestry score by 5 points to improve QOL and function Goal Time Frame: 4-6 Weeks Goal 4:: Patient to ambulate further distances with less pain and improvement ADLS by 50% Goal Time Frame: 4-6 Weeks Goal 5:: Patient to demonstrate 50% improvement with less pain and function Goal Time Frame: 4-6 Weeks Rehabilitation Potential Physical Therapy Diagnosis: This patient lumbar radiculopathy with h/o lumbar fusion 23 years ago now has stenosis and 11 mm anterolisthesis with pain with positioning and motion testing worse with standing and walking impairs ADLS and walking and needs device along with weakness in legs thus benefit from skilled PT Rehabilitation Potential: Good Anticipated Interventions Patient/Client Instruction: Educate patient on: Condition and Plan of Care For the Purpose of:: To decrease pain, To increase ROM, To improve muscle performance and motor function, To improve ability to perform ADL's, To increase tolerance to activity/condition/ position, To improve ability of physical actions for home/community/work /leisure, To improve health of tissue, To decrease soft tissue restriction, To increase flexibility/ROM and To improve tolerance to ADL's Therapeutic Exercise to Include: Strength training, Body mechanics, Postural training, Flexibilty training, Dynamic Lumbar Stabilization and Joey Exercises For the Purpose of:: To decrease pain, To increase ROM, To improve muscle performance and motor function, To improve ability to perform ADL's, To increase tolerance to activity/condition/ position, To improve ability of physical actions for home/community/work /leisure, To improve health of tissue, To decrease soft tissue restriction and To increase flexibility/ROM TENS: Yes IF ES: Yes Cryot (more content not included)... Normal [facility] Pulmonary Visit Reporton Pulmonary Visit Report [facility] [place] [address] [place] [address] OFFICE VISIT Date of Service: 02/26/25 MR#: [id number] Acct: [id number] Name: GAYATHRI CORREIA Rep #: [id number] : 1945 Provider: JUAN Doran Age/Sex: 79/F [facility] [place] Status: Signed Assessment and Plan Assessment and Plan (1) TERRY (obstructive sleep apnea): Status: Chronic Comment: AHI 47.9. Plan: She is using and benefiting from Pap therapy. No indication for titration study at this time. Contact the office for any new or worsening symptoms in the meantime. Follow-up in 6 months. (2) Secondary pulmonary hypertension: Status: Chronic Plan: Symptomatically stable. (3) Obesity: Status: Chronic Qualifiers: Obesity type: due to excess calories Obesity classification: adult class 3 (BMI gt;= 40) Serious obesity comorbidity presence: with serious comorbidity Body mass index: BMI 45.0-49.9 Qualified Code(s): E66.01 - Morbid (severe) obesity due to excess calories; Z68.42 - Body mass index [BMI] 45.0-49.9, adult Plan: Complicates exam, plan, care and prognosis. Continue to encourage weight loss. Plan Details Follow Up: 6 Months HPI HPI Comments Details: This patient presents to the office today for follow-up of her obstructive sleep apnea. She is in a wheelchair and currently on room air. She is accompanied today by her Granddaughter. She has not recently been seen in the ED or urgent care for any respiratory illness. She has not required any antibiotics or prednisone for any breathing problems. She is a lifelong never smoker. If you recall, she spends the vega in [place]. She returned to [place] last week. She is not currently on any inhalers. She is compliant with Lasix 40 mg daily. She reports shortness of breath on exertion. She has occasional wheezing. She denies chest tightness, chest pain or palpitations. She also denies any fever, chills or body aches. She has a dry cough in the mornings. She has not had any sputum production or hemoptysis. She wakes up feeling rested and refreshed with the use of her Pap device. She is having some difficulty with dry mouth. She denies snoring through the mask. She is not having excessive nocturia. She is not having morning headaches. She denies nodding off to sleep unintentionally. Compliance report for the past 30 days shows 100% compliance and average use of 8 hours and 10 minutes per night. Current setting is AutoPap 5 to 20 cm water pressure typically being utilized 8.0 to 12.7 cm water. Residual AHI of 2.6 events per hour. Leaks do not appear to be problematic. Intake Vital Signs 08/19/24 07:51 02/26/25 08:22 Height 4 ft 10 in 4 ft 10 in Weight: 201 lb BMI 42.0 BP 110/72 Blood Pressure Location Lt brachial Position Sitting Respiration 18 Pulse 70 Pulse Source Monitor Temp 97.4 F L Temperature Source Temporal Artery Pulse Oximetry (%) 95 Oxygen Delivery Method room air Intake Visit Reasons: 6 m fu Chief Complaint: F/u for R breast cancer and osteoporosis. Early Childhood Required: No DME Vendor: Jessica Accompanied by: Daughter In Law Allergies No Known Allergies Allergy (Verified 02/26/25 14:08) Medications ???Medication ???Instructions ???Recorded ???Confirmed ???Type [id number]-ocgj-syyk 8 mg-folic 400 1 ea PO DAILY supplement 03/02/17 02/26/25 History mcg-K 50 mcg-lutein 300 mcg tablet gabapentin 300 mg capsule 300 mg PO BID pain 30 days #90 cap s 12/24/18 02/26/25 History coenzyme Q10 100 mg capsule 100 mg PO DAILY 08/09/21 02/26/25 History (Q-Sorb Co Q-10) melatonin 3 mg tablet 10 mg PO QHS sleep 02/07/22 History acetaminophen 500 mg tablet 1,000 mg PO ONCE 11/09/22 02/26/25 History calcium carbonate (Calcium 600) 600 mg PO BID 11/09/22 02/26/25 Hi story cholecalciferol (vitamin D3) 50 50 mcg PO BID 11/09/22 02/26/25 Hi story mcg (2,000 unit) capsule pyridoxine (vitamin B6) 100 mg 100 mg PO DAILY supplement 2 02/26/25 History tablet metoprolol succinate 25 mg 25 mg PO .COMPLEX afib #180 tabs 0 04/23/24 02/26/25 Rx tablet,extended release 24 hr atorvastatin 10 mg tablet 10 mg PO DAILY #30 tabs 06/16/24 0 02/26/25 Rx furosemide 40 mg tablet 40 mg PO DAILY #30 tabs 06/16/24 0 02/26/25 Rx losartan 100 mg tablet 100 mg PO DAILY #30 tabs 06/16/24 02/26/25 Rx warfarin 3 mg tablet 3 mg PO .COMPLEX #90 TABLETS 06/1602/26/25 Rx oxycodone-acetamino phen 5 mg-325 tab PO 08/19/24 02/26/25 History mg tablet tamoxifen 20 mg tablet 20 mg PO DAILY #90 TABLETS 4 02/26/25 Rx escitalopram oxalate 10 mg tablet 10 mg PO QDAY 02/26/25 02/26/25 H istory Have you fallen in the past year?: Yes [facility] Medical History ... Normal [facility] INR Coag (BldC) [Relative ti me]Ordered By: Juni Epstein on 02-24-2025 INR Coag (Bld) [Relative time] 2.3 {INR} [facility] Comment on above: Critical Value > 4.0 International normalized rat io (INR) measurement by fingerstickOrdered By: Juni Epstein on 02-24-2025 INR Coag (BldC) [Relative time] 2.3 [facility] Comment on above: Critical Value > 4.0 PT Coag (Bld) [Time]Ordered By: Juni Epstein on 02-24-2025 Bedside Prothrombin Time 25.3 SEC High 11.7-14.9 [facility] Protime w/INR Fingerstickon 02-24-2025 INR Coag (PPP) [Relative time] 2.3 {INR} Normal [facility] Comment on above: Result Comment: Crit ical Value > 4.0 Performed By: #### L 300.3900, L506.1001 #### [facility] Laboratory [address] [place], [address] Protime Coagsen 25.3 SEC High 11.7-14.9 [facility] Comment on above: Performed By: #### L 300.3900, L506.1001 #### [facility] [address] [place], [address] Whole blood prothrombin time Ordered By: Juni Lucian on 02-24-2025 PT Coag (Bld) [Time] 25.3 s High 11.7-14.9 [facility] No Panel InformationOrdered By: Juni Lucian on 01-14-2025 INR International Normalized Ratio 2.5 [facility] No Panel Informationon 12-17 INR International Normalized Ratio 2.7 [facility] No Panel Informationon 11-30 INR International Normalized Ratio 1.6 [facility] No Panel Informationon 11-26 INR International Normalized Ratio 5.4 High [facility] Prothrombin Time w/INRon INR Normal [facility] Comment on above: Result Comment: FING ERSTICK Performed By: #### L 300.3900, L506.1001 #### [facility] [address] [place], [address] PROTIME Normal 11.7-14.9 [facility] Comment on above: Result Comment: FING ERSTICK Performed By: #### L 300.3900, L506.1001 #### [facility] [address] [place], [address] CBC W/Diff, Automatedon 11- Absolute Lymph 2.12 X10 3/uL Normal 0.83-4.51 [facility] Comment on above: Performed By: #### L 300.3900, L506.1001 #### [facility] [address] [place], [address] Absolute Neut 3.3 X10 3/uL Normal 2.0-7.7 [facility] Comment on above: Performed By: #### L 300.3900, L506.1001 #### [facility] [address] [place], [address] Basophils/100 WBC (Bld) 0.5 % Normal 0-1 [facility] Comment on above: Performed By: #### L 300.3900, L506.1001 #### [facility] [address] [place], [address] Eosinophils/100 WBC (Bld) 3.6 % Normal 0-5 [facility] Comment on above: Performed By: #### L 300.3900, L506.1001 #### [facility] [address] [place], [address] Erythrocyte distribution width (RBC) [Ratio] 14.0 % Normal 11.6-14.6 [facility] Comment on above: Performed By: #### L 300.3900, L506.1001 #### [facility] [address] [place], [address] Hematocrit (Bld) [Volume fraction] 35.5 % Low 37-47 [facility] Comment on above: Performed By: #### L 300.3900, L506.1001 #### [facility] [address] [place], [address] Hemoglobin (Bld) [Mass/Vol] 11.2 g/dL Low 12.0-15.0 [facility] Comment on above: Performed By: #### L 300.3900, L506.1001 #### [facility] [address] [place], [address] IG% 0.200 Normal 0.0-0.9 [facility] Comment on above: Result Comment: IG% - Immature Granulocytes (promyelocytes, myelocytes and metamyelocytes) > 1% indicates that a LEFT SHIFT is Present. Performed By: #### L 300.3900, L506.1001 #### [facility] [address] [place], [address] Lymphocytes/100 WBC (Bld) 34.5 % Normal 19-41 [facility] Comment on above: Performed By: #### L 300.3900, L506.1001 #### [facility] [address] [place], [address] MCH (RBC) [Entitic mass] 30.5 pg Normal 27.0-32.0 [facility] Comment on above: Performed By: #### L 300.3900, L506.1001 #### [facility] [address] [place], [address] MCHC (RBC) [Mass/Vol] 31.5 g/dL Low 32-36 [facility] Comment on above: Performed By: #### L 300.3900, L506.1001 #### [facility] [address] [place], [address] MCV (RBC) [Entitic vol] 96.7 fL Normal 81-99 [facility] Comment on above: Performed By: #### L 300.3900, L506.1001 #### [facility] [address] [place], [address] Monocytes/100 WBC (Bld) 6.8 % Normal 0-10 [facility] Comment on above: Performed By: #### L 300.3900, L506.1001 #### [facility] [address] [place], [address] Neutrophils/100 WBC (Bld) 54.4 % Normal 47-70 [facility] Comment on above: Performed By: #### L 300.3900, L506.1001 #### [facility] [address] [place], [address] Nucleated RBC (Bld) [#/Vol] 0 10*3/uL Normal 0-5 [facility] Comment on above: Performed By: #### L 300.3900, L506.1001 #### [facility] [address] [place], [address] Platelet mean volume (Bld) [Entitic vol] 8.8 fL Normal 6.2-12.0 [facility] Comment on above: Performed By: #### L 300.3900, L506.1001 #### [facility] [address] [place], [address] Platelets (Bld) [#/Vol] 199 10*3/uL Normal 150-450 [facility] Comment on above: Performed By: #### L 300.3900, L506.1001 #### [facility] Laboratory [address] [place], [address] RBC (Bld) [#/Vol] 3.67 10*6/uL Low 4.2-5.4 [facility] Comment on above: Performed By: #### L 300.3900, L506.1001 #### [facility] Laboratory [address] [place], [address] RDW SD 49.6 fl High 35.1-43.9 [facility] Comment on above: Performed By: #### L 300.3900, L506.1001 #### [facility] Laboratory [address] [place], [address] WBC (Bld) [#/Vol] 6.1 10*3/uL Normal 4.4-11.0 [facility] Comment on above: Performed By: #### L 300.3900, L506.1001 #### [facility] Laboratory [address] [place], [address] Cardiology Visit Reporton Cardiology Visit Report [facility] [address] [place] [address] OFFICE VISIT Date of Service: 10/20/24 MR#: [id number] Acct: [id number] Name: GAYATHRI CORREIA Rep #: [id number] : 1945 Provider: JUAN tom Age/Sex: 79/F Location: [facility] Status: Signed HPI HPI History of Present Illness Details: This is a 79-year-old female who presents to the office today for cardiovascular outpatient visit. She does have a history of hypertension, hyperlipidemia, diabetes and gastric bypass surgery. She also has a history of paroxysmal atrial fibrillation. Pt was recently diagnosed with breast carcinoma of her right breast, and was treated with radiation therapy. From a cardiac standpoint, the patient is doing well. She does use a cane and or walker to help with ambulation. She presents to the office in a wheel chair. She denies any palpitations. She states that she did have one episode of chest discomfort last week. She states that this was a pressure in the midsternal. She states this lasted for about 24 hours. She attributes this to stress. She does have occasional SOB with exertion-this is nothing new or worsening. She denies Orthopnea, and PND. She does wear a CPAP nightly. She does not have bleeding issues; no blood in urine, stool or nosebleeds. She does acknowledge chronic fatigue. She denies myalgias, or claudication. She does not have edema, or sudden weight gain. She denies dizziness, lightheadedness, syncopal or near syncopal episodes, and headaches. Intake Vital Signs 04/23/24 10:36 09/14/24 11:25 10/20/24 10:30 10/20/24 10:32 Height 4 ft 10 in 4 ft 10 in 4 ft 10 in 4 ft 10 in Weight: 199 lb BMI 41.5 BP 103/60 Blood Pressure Location Lt brachial Position Sitting Respiration 18 Pulse 75 Pulse Source Monitor Pulse Oximetry (%) 95 Intake Visit Reasons: 6 M FU Early Childhood Required: No Is patient in pain?: No Allergies No Known Allergies Allergy (Verified 10/20/24 10:47) Medications ???Medication ???Instructions ???Recorded ???Confirmed ???Type [id number] 8 mg-folic 400 1 ea PO DAILY supplement 03/02/17 10/20/24 History mcg-K 50 mcg-lutein 300 mcg tablet gabapentin 300 mg capsule 300 mg PO BID pain 30 days #90 caps 12/24/18 10/20/24 History coenzyme Q10 100 mg capsule 100 mg PO DAILY 08/09/21 10/20/24 History (Q-Sorb Co Q-10) melatonin 3 mg tablet 10 mg PO QHS sleep 02/07/22 10/20/24 History acetaminophen 500 mg tablet 1,000 mg PO ONCE 11/09/22 10/20/24 History calcium carbonate (Calcium 600) 600 mg PO BID 11/09/22 10/20/24 History cholecalciferol (vitamin D3) 50 50 mcg PO BID 11/09/22 10/20/24 History mcg (2,000 unit) capsule pyridoxine (vitamin B6) 100 mg 100 mg PO DAILY supplement 11/09/22 10/20/24 History tablet escitalopram oxalate 5 mg tablet 20 mg PO DAILY 10/18/23 10/20/24 History metoprolol succinate 25 mg 25 mg PO .COMPLEX afib #180 tabs 04/23/24 10/20/24 Rx tablet,extended release 24 hr atorvastatin 10 mg tablet 10 mg PO DAILY #30 tabs 06/16/24 10/20/24 Rx furosemide 40 mg tablet 40 mg PO DAILY #30 tabs 06/16/24 10/20/24 Rx losartan 100 mg tablet 100 mg PO DAILY #30 tabs 06/16/24 10/20/24 Rx warfarin 3 mg tablet 3 mg PO .COMPLEX #90 TABLETS 06/16/24 10/20/24 Rx oxycodone-acetamino phen 5 mg-325 tab PO 08/19/24 10/20/24 History mg tablet tamoxifen 20 mg tablet 20 mg PO DAILY #90 TABLETS 09/14/24 10/20/24 Rx Have you fallen in the past year?: [facility] History Osteoporosis Sleep apnea with use of continuous positive airway pressure (CPAP) Cataract, left eye Irritable bowel Wrist fracture, left Lung nodule, multiple Encounter for education Breast cancer, right breast Malignant neoplasm of central portion of right female breast Paroxysmal atrial flutter Spinal stenosis 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 Paroxysmal atrial fibrillation Obesity Type 2 diabetes mellitus Surgical History Status post right breast lumpectomy S/P right breast biopsy (03/05/19) S/P shoulder surgery H/O dilation and curettage H/O hand surgery S/P carpal tunnel release h/o breast lumpectomy H/O: hysterectomy H/O total knee replacement History of tonsillectomy History of back surgery History of radiofrequency ablation procedure for cardiac arrhythmia (03/20/11) History of gastric bypass Family History Sister CVA (cerebral vascular accident) Father CAD (coronary artery disease) Hypertension Mother Hypertension CAD (coronary artery disease) Social History ... Normal [facility] Lipid Profileon 10-20-2024 Cholesterol [Mass/Vol] 141 mg/dL Normal 200 [facility] Comment on above: Result Comment: <200 mg/dL Desirable 200-240 mg/dL Borderline >240 mg/dL High Risk Performed By: #### L 300.3900, L506.1001 #### [facility] Laboratory [address] [place], [address] Cholesterol in HDL [Mass/Vol] 56 mg/dL Normal [facility] Comment on above: Result Comment: The drugs N-Acetylcysteine and Metamizole may falsely depress this assay. Reference Range HDL <40 mg/dL Low HDL Cholesterol HDL >or= 60 mg/dL High HDL Cholesterol Performed By: #### L 300.3900, L506.1001 #### [facility] Laboratory [address] [place], [address] Cholesterol in LDL [Mass/Vol] 63 mg/dL Normal 0-130 [facility] Comment on above: Performed By: #### L 300.3900, L506.1001 #### [facility] Laboratory [address] [place], [address] Cholesterol in VLDL [Mass/Vol] 22 mg/dL Normal 5-40 [facility] Comment on above: Performed By: #### L 300.3900, L506.1001 #### [facility] Laboratory [address] [place], [address] Triglyceride [Mass/Vol] 110 mg/dL Normal [facility] Comment on above: Result Comment: The drugs N-Acetylcysteine and Metamizole may falsely depress this assay. Serum Triglycerides Reference Interval Normal <150 mg/dL Borderline high 150 - 199 mg/dL High 200 - 499 mg/dL Very High > or = 500 mg/dL Performed By: #### L 300.3900, L506.1001 #### [facility] Laboratory [address] [place], [address] Liver Profileon 10-20-2024 Albumin [Mass/Vol] 3.5 g/dL Normal 3.2-5.0 [facility] Comment on above: Performed By: #### L 300.3900, L506.1001 #### [facility] Laboratory [address] [place], [address] ALK P 38 U/L Low 45-117 [facility] Comment on above: Performed By: #### L 300.3900, L506.1001 #### [facility] Laboratory [address] [place], [address] ALT [Catalytic activity/Vol] 18 U/L Normal 13-56 [facility] Comment on above: Performed By: #### L 300.3900, L506.1001 #### [facility] Laboratory [address] [place], [address] AST [Catalytic activity/Vol] 21 U/L Normal 15-37 [facility] Comment on above: Performed By: #### L 300.3900, L506.1001 #### [facility] Laboratory [address] [place], [address] Bilirubin [Mass/Vol] 0.50 mg/dL Normal 0.20-1.00 [facility] Comment on above: Result Comment: For patients on eltrombopag therapy, use of Dimension [place] TBIL is not recommended. Performed By: #### L 300.3900, L506.1001 #### [facility] Laboratory [address] [place], [address] Bilirubin.direct [Mass/Vol] 0.15 mg/dL Normal 0.00-0.30 [facility] Comment on above: Performed By: #### L 300.3900, L506.1001 #### [facility] Laboratory [address] [place], [address] Globulin (S) [Mass/Vol] 2.9 g/dL Normal 2.2-4.2 [facility] Comment on above: Performed By: #### L 300.3900, L506.1001 #### [facility] Laboratory [address] [place], [address] T PROT 6.4 g/dL Normal 6.4-8.2 [facility] Comment on above: Performed By: #### L 300.3900, L506.1001 #### [facility] Laboratory [address] [place], [address] Protime w/INR Fingerstickon 10-20-2024 INR Coag (PPP) [Relative time] 1.6 {INR} Normal [facility] Comment on above: Result Comment: Crit ical Value > 4.0 Performed By: #### L 9200.0000 ####[facility] [address] [place], [address] Protime Coagsen 18.6 SEC High 11.7-14.9 [facility] Comment on above: Performed By: #### L 9200.0000 ####[facility] [address] [place], [address] Dexa Bone Density Studyon Dexa Bone Density Study [facility] Imaging Services [address] [place] [address] Dexa Bone Density Study MR#: [id number] Acct: [id number] Name: GAYATHRI CORREIA Rep #: [id number] : 1945 F 79 From: Forrest riojas MD PCP: Dr. Daniel Lai MD Status: [facility] Study: Dexa Bone Density Study Date of Exam: 10/15/24 Exam# [id number] Ordering Dr: Josue Leal MD -[id number] STUDY: DUAL ENERGY X-RAY ABSORPTIOMETRY / DXA REASON FOR EXAM: Female, 79 years old. SCREENING TECHNIQUE: Bone Mineral Density (BMD) measurements of lumbar spine and bilateral hips were obtained. COMPARISON: Comparison is made with prior study August 21, 2022. FINDINGS: Lumbar Spine (L1-L4): g/cm2 (1.164) / T-score (1.3) / Z-score (4.0) Findings are suggestive of normal bone density with a low fracture risk. Left Femur Total: g/cm2 (0.788) / T-score (-1.3) / Z-score (0.9) Left Femoral Neck: g/cm2 (0.550) / T-score (-2.7) / Z-score (-0.3) Right Femur Total: g/cm2 (0.768) / T-score (-1.4) / Z-score (0.7) Right Femoral Neck: g/cm2 (0.596) / T-score (-2.3) / Z-score (0.1) The T-Scores on the most recent prior examination were: Lumbar Spine (L1-L4): There has been improvement of bone density since the previous examination. Left Femur Total: which represents an improvement of 0.3%. Right Femur Total: which represents an improvement of 8%. BD/Dexa Bone Density Study IMPRESSION: The patient is considered osteoporotic as outlined below according to World Junior Organization (WHO) criteria with a high fracture risk. There has been improvement of bone density since the previous examination. Reference Information: The T-score is the number of standard deviations above or below the standard which is normal for young adults at their peak bone mineral density. The World Health Organization (WHO) interprets the T-scores as follows: Above -1 Normal bone density Between -1 and -2.5 Osteopenia Equal to / or below -2.5 Osteoporosis As a practical clinical guideline, osteopenia may be graded as follows: Mild -1 through -1.5 Moderate -1.6 through -2.0 Severe -2.1 through -2.4 The Z-score is the number of standard deviations above or below age-matched controls. A Z-score of less than -1.5 would be considered abnormal. References: 1. NIH Osteoporosis and Related Bone Diseases www osteo.org 2. International Society for Clinical Densitometry www iscd.org 3. National Osteoporosis Foundation www nof.org Electronically Signed: Forrest Rodriguez MD at 15:23 EST Reading Location ID and State: [address] [place] [address] , Service support , CC: Dr. Daniel Lai MD; Dr. Josue Leal MD Final Inspector Movement Assembly: Signed Normal [facility] SCRN MAMM (CAD)W/DOC BILATo n 10-15-2024 SCRN MAMM (CAD)W/DOC BILAT [facility] Imaging Services [address] [place], [place] [address] SCRN MAMM (CAD)W/DOC BILAT MR#: [id number] Acct: [id number] Name: GAYATHRI CORREIA Rep #: [id number] : 1945 F 79 From: Forrest riojas MD PCP: Dr. Daniel Lai MD Status: [facility] Study: SCRN MAMM (CAD)W/DOC BILAT Date of Exam: 10/02 03/25 Exam# [id number] Ordering Dr: Josue Leal MD -[id number] MAMMOGRAPHY - BILATERAL SCREENING REASON FOR EXAM: Female, 79 years old. Routine annual screening examination. PERTINENT HISTORY: Personal history of breast cancer. Prior right lumpectomy. TECHNIQUE: Digital bilateral breast doc (3D mammographic acquisition) in the CC and MLO projections. 2-D mediolateral oblique (MLO) and craniocaudad (CC) views of both breasts were obtained. CAD: Full Field Digital Mammography with Computer Added Detection was performed. COMPARISON: Comparison is made with prior study August 22, 2023 and June 13, 2022. FINDINGS: Breast Composition: There are scattered areas of fibroglandular density. There are no dominant masses or suspicious calcifications. Stable architectural distortion in the upper lateral aspect of the right breast into with prior right lumpectomy. Skin thickening. No other significant abnormalities are identified. There has been no significant change since the prior study. BI/SCRN MAMM (CAD)W/DOC BILAT IMPRESSION: Stable bilateral screening mammogram. Yearly follow-up mammogram recommended. (A) ASSESSMENT CATEGORY: BIRADS Category 2: Benign. A letter regarding these results will be sent to the patient by the facility within 30 days. Approximately 10% of breast cancers are not detected by mammography. A normal mammogram should not delay biopsy of a clinically suspicious abnormality. [id number] Electronically Signed: Forrest Rodriguez MD at 15:43 EST , CC: Dr. Daniel Lai MD; Dr. Josue Leal MD Final Inspector Movement Assembly: Signed Normal [facility] CBC W/Diff, Automatedon 10- Absolute Lymph 2.16 X10 3/uL Normal 0.83-4.51 [facility] Comment on above: Performed By: #### L 300.3900, L506.1001 #### [facility] Laboratory [address] [place], [address] Absolute Neut 2.7 X10 3/uL Normal 2.0-7.7 [facility] Comment on above: Performed By: #### L 300.3900, L506.1001 #### [facility] Laboratory [address] [place], [address] Basophils/100 WBC (Bld) 0.7 % Normal 0-1 [facility] Comment on above: Performed By: #### L 300.3900, L506.1001 #### [facility] Laboratory [address] [place], [address] Eosinophils/100 WBC (Bld) 7.9 % High 0-5 [facility] Comment on above: Performed By: #### L 300.3900, L506.1001 #### [facility] Laboratory [address] [place], [address] Erythrocyte distribution width (RBC) [Ratio] 14.6 % Normal 11.6-14.6 [facility] Comment on above: Performed By: #### L 300.3900, L506.1001 #### [facility] Laboratory [address] [place], [address] Hematocrit (Bld) [Volume fraction] 35.3 % Low 37-47 [facility] Comment on above: Performed By: #### L 300.3900, L506.1001 #### [facility] Laboratory [address] [place], [address] Hemoglobin (Bld) [Mass/Vol] 10.8 g/dL Low 12.0-15.0 [facility] Comment on above: Performed By: #### L 300.3900, L506.1001 #### [facility] Laboratory [address] [place], [address] IG% 0.200 Normal 0.0-0.9 [facility] Comment on above: Result Comment: IG% - Immature Granulocytes (promyelocytes, myelocytes and metamyelocytes) > 1% indicates that a LEFT SHIFT is Present. Performed By: #### L 300.3900, L506.1001 #### [facility] Laboratory [address] [place], [address] Lymphocytes/100 WBC (Bld) 37.0 % Normal 19-41 [facility] Comment on above: Performed By: #### L 300.3900, L506.1001 #### [facility] Laboratory [address] [place], [address] MCH (RBC) [Entitic mass] 30.3 pg Normal 27.0-32.0 [facility] Comment on above: Performed By: #### L 300.3900, L506.1001 #### [facility] Laboratory [address] [place], [address] MCHC (RBC) [Mass/Vol] 30.6 g/dL Low 32-36 [facility] Comment on above: Performed By: #### L 300.3900, L506.1001 #### [facility] Laboratory [address] [place], [address] MCV (RBC) [Entitic vol] 99.2 fL High 81-99 [facility] Comment on above: Performed By: #### L 300.3900, L506.1001 #### [facility] Laboratory [address] [place], [address] Monocytes/100 WBC (Bld) 7.7 % Normal 0-10 [facility] Comment on above: Performed By: #### L 300.3900, L506.1001 #### [facility] Laboratory [address] [place], [address] Neutrophils/100 WBC (Bld) 46.5 % Low 47-70 [facility] Comment on above: Performed By: #### L 300.3900, L506.1001 #### [facility] Laboratory [address] [place], [address] Nucleated RBC (Bld) [#/Vol] 0 10*3/uL Normal 0-5 [facility] Comment on above: Performed By: #### L 300.3900, L506.1001 #### [facility] Laboratory [address] [place], [address] Platelet mean volume (Bld) [Entitic vol] 9.2 fL Normal 6.2-12.0 [facility] Comment on above: Performed By: #### L 300.3900, L506.1001 #### [facility] Laboratory [address] [place], [address] Platelets (Bld) [#/Vol] 215 10*3/uL Normal 150-450 [facility] Comment on above: Performed By: #### L 300.3900, L506.1001 #### [facility] Laboratory [address] [place], [address] RBC (Bld) [#/Vol] 3.56 10*6/uL Low 4.2-5.4 [facility] Comment on above: Performed By: #### L 300.3900, L506.1001 #### [facility] Laboratory [address] [place], [address] RDW SD 53.1 fl High 35.1-43.9 [facility] Comment on above: Performed By: #### L 300.3900, L506.1001 #### [facility] Laboratory [address] [place], [address] WBC (Bld) [#/Vol] 5.8 10*3/uL Normal 4.4-11.0 [facility] Comment on above: Performed By: #### L 300.3900, L506.1001 #### [facility] Laboratory [address] [place], [address] Comprehensive Metabolic Prof ilon 09-14-2024 Albumin [Mass/Vol] 3.2 g/dL Normal 3.2-5.0 [facility] Comment on above: Order Comment: 1 Performed By: #### L 300.3900, L506.1001 #### [facility] Laboratory [address] [place], [address] Albumin/Globulin [Mass ratio] 1.0 {ratio} Normal 0.9-2.4 [facility] Comment on above: Order Comment: 1 Performed By: #### L 300.3900, L506.1001 #### [facility] Laboratory [address] [place], [address] ALK P 51 U/L Normal 45-117 [facility] Comment on above: Order Comment: 1 Performed By: #### L 300.3900, L506.1001 #### [facility] Laboratory [address] [place], [address] ALT [Catalytic activity/Vol] 21 U/L Normal 13-56 [facility] Comment on above: Order Comment: 1 Performed By: #### L 300.3900, L506.1001 #### [facility] Laboratory [address] [place], [address] AST [Catalytic activity/Vol] 22 U/L Normal 15-37 [facility] Comment on above: Order Comment: 1 Performed By: #### L 300.3900, L506.1001 #### [facility] Laboratory [address] [place], [address] Bilirubin [Mass/Vol] 0.40 mg/dL Normal 0.20-1.00 [facility] Comment on above: Order Comment: 1 Result Comment: For patients on eltrombopag therapy, use of Dimension [place] TBIL is not recommended. Performed By: #### L 300.3900, L506.1001 #### [facility] Laboratory [address] [place], [address] BUN/CRE 12.1 RATIO Normal 10-20 [facility] Comment on above: Order Comment: 1 Performed By: #### L 300.3900, L506.1001 #### [facility] Laboratory [address] [place], [address] CA,Total 8.5 mg/dL Normal 8.5-10.1 [facility] Comment on above: Order Comment: 1 Performed By: #### L 300.3900, L506.1001 #### [facility] Laboratory [address] [place], [address] Chloride [Moles/Vol] 107 mmol/L Normal 98-107 [facility] Comment on above: Order Comment: 1 Performed By: #### L 300.3900, L506.1001 #### [facility] Laboratory [address] [place], [address] CO2 [Moles/Vol] 29.0 mmol/L Normal 21.0-32.0 [facility] Comment on above: Order Comment: 1 Performed By: #### L 300.3900, L506.1001 #### [facility] Laboratory [address] [place], [address] Creatinine [Mass/Vol] 1.24 mg/dL High 0.55-1.02 [facility] Comment on above: Order Comment: 1 Result Comment: The validity of the calculated GFR GFRAA in patients over 70 years has not been determined. Clinical correlation is essential. Performed By: #### L 300.3900, L506.1001 #### [facility] Laboratory [address] [place], [address] ECRCL 36.88 ml/min Normal [facility] Comment on above: Order Comment: 1 Performed By: #### L 300.3900, L506.1001 #### [facility] Laboratory [address] [place], [address] EST GFR - AA 53 mL/min Low >60 [facility] Comment on above: Order Comment: 1 Result Comment: Afri can Japanese GFR Calc Performed By: #### L 300.3900, L506.1001 #### [facility] Laboratory [address] [place], [address] GAP 6 Normal 5-15 [facility] Comment on above: Order Comment: 1 Performed By: #### L 300.3900, L506.1001 #### [facility] Laboratory [address] [place], [address] GFR/1.73 sq M.predicted among non-blacks MDRD (S/P/Bld) [Vol rate/Area] 44 mL/min/{1.73_m2} Low >60 [facility] Comment on above: Order Comment: 1 Result Comment: Non- GFR Calc Performed By: #### L 300.3900, L506.1001 #### [facility] [address] [place], [address] Globulin (S) [Mass/Vol] 3.3 g/dL Normal 2.2-4.2 [facility] Comment on above: Order Comment: 1 Performed By: #### L 300.3900, L506.1001 #### [facility] [address] [place], [address] Glucose [Mass/Vol] 128 mg/dL High 74-106 [facility] Comment on above: Order Comment: 1 Result Comment: Fast ing Glucose result greater than or equal to 126 mg/dL suggests DIABETES MELLITUS per A.D.A. criteria. Performed By: #### L 300.3900, L506.1001 #### [facility] [address] [place], [address] Potassium [Moles/Vol] 4.1 mmol/L Normal 3.5-5.1 [facility] Comment on above: Order Comment: 1 Performed By: #### L 300.3900, L506.1001 #### [facility] [address] [place], [address] Sodium [Moles/Vol] 142 mmol/L Normal 136-145 [facility] Comment on above: Order Comment: 1 Performed By: #### L 300.3900, L506.1001 #### [facility] [address] [place], [address] T PROT 6.5 g/dL Normal 6.4-8.2 [facility] Comment on above: Order Comment: 1 Performed By: #### L 300.3900, L506.1001 #### [facility] [address] [place], [address] Urea nitrogen [Mass/Vol] 15 mg/dL Normal 7-18 [facility] Comment on above: Order Comment: 1 Performed By: #### L 300.3900, L506.1001 #### [facility] [address] [place], [address] LDHon 09-14-2024 LDH 171 U/L Normal 84-246 [facility] Comment on above: Order Comment: 1 Performed By: #### L 300.3900, L506.1001 #### [facility] [address] [place], [address] Magnesiumon 09-14-2024 Magnesium [Mass/Vol] 2.1 mg/dL Normal 1.6-2.6 [facility] Comment on above: Order Comment: 1 Performed By: #### L 300.3900, L506.1001 #### [facility] [address] [place], [address] Magnesium measurementOrdered By: Josue Leal on 09-14-2024 Magnesium [Mass/Vol] 2.1 mg/dL 1.6-2.6 [facility] Oncology Visit Reporton 09-01 Oncology Visit Report [facility] [address] [place] [address] OFFICE VISIT Date of Service: 09/14/24 1123 MR#: [id number] Acct: [id number] Name: GAYATHRI CORREIA Rep #: [id number] : 1945 From: Josue Leal MD Age/Sex: 79/F Location: [facility] [place] Status: Signed HPI Subjective Date of Service 09/14/24 Chief Complaint F/u for R breast cancer and osteoporosis. History of Present Illness 79 y.o.woman presented with abnormal mammogram on 02/25/2019 showed 1.3 cm upper outer quadrant mass in the right breast. She had ultrasound-guided biopsy of right breast on 03/05/2019. Pathology showed invasive ductal carcinoma, ER greater than 95%, AL greater than 95%, HER-2 0 staining by IHC. She had a right breast lumpectomy and sentinel node biopsy on 03/17/2019. Pathology showed Invasive ductal carcinoma with focal mucinous features, tumor size 2cm, grade 2, [place] node 1 is negative. Staging pT1c pN0. CT c/a/p on 03/31/2019 showed non-specific nodules, calcification in spleen. Bone scan on 04/03/2019 no metastatic disease. Bone density on 02/25/2019 showed Osteoporosis. She received adjuvant Radiation therapy from 04/29/2019-05/20/2019 . She started Adjuvant Tamoxifen on 06/09/2019. CT chest on 06/06/2020 showed stable nodules. Remains on Tamoxifen. Bone density on 08/21/22 showed worsening osteoporosis. Comes for follow up. Has Low back pain/sciatica. 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 Paroxysmal atrial fibrillation Obesity Type 2 diabetes mellitus Surgical History Status post right breast lumpectomy S/P right breast biopsy (03/05/19) S/P shoulder surgery H/O dilation and curettage H/O hand surgery S/P carpal tunnel release h/o breast lumpectomy H/O: hysterectomy H/O total knee replacement History of tonsillectomy History of back surgery History of radiofrequency ablation procedure for cardiac arrhythmia (03/20/11) History of gastric bypass Family History Sister CVA (cerebral vascular accident) Father CAD (coronary artery disease) Hypertension Mother Hypertension CAD (coronary artery disease) Social History Smoking Status: Never smoker Electronic Cigarette Use: not used second hand exposure: Yes (Childhood ) alcohol intake: current alcohol intake frequency: holidays/special occasions only Alcohol type: wine substance use type: does not use ROS Constitutional Constitutional: Reports systems reviewed and no addt'l complaints, except as documented Eyes Eyes: Reports systems reviewed and no addt'l complaints, except as documented ENT HEENT: Reports systems reviewed and no addt'l complaints, except as documented Cardiovascular Cardiovascular: Reports systems reviewed and no addt'l complaints, except as documented Respiratory/Chest Respiratory/Chest: Reports systems reviewed and no addt'l complaints, except as documented and portable oxygen @ home Gastrointestinal Gastrointestinal: Reports systems reviewed and no addt'l complaints, except as documented Genitourinary Genitourinary: Reports systems reviewed and no addt'l complaints, except as documented Musculoskeletal Musculoskeletal: Reports systems reviewed and no addt'l complaints, except as documented and other Details: L shoulder arthritis with limited motion. Integumentary Integumentary: Reports systems reviewed and no addt'l complaints, except as documented Neurologic Neurologic: Reports systems reviewed and no addt'l complaints, except as documented Psychiatric Psychiatric: Reports systems reviewed and no addt'l complaints, except as documented Endocrine Endocrinology: Reports systems reviewed and no addt'l complaints, except as documented Hematologic/Lymphat ic Hematologic/Lymphat ic: Reports systems reviewed and no addt'l complaints, except as documented Allergic/Immunologi c Allergic/Immunologi c: Reports systems reviewed and no addt'l complaints, except as documented Intake Vital Signs 03/16/24 11:32 09/14/24 11:25 09/14/24 11:25 Height 4 ft 10 in 4 ft 10 in 4 ft 10 in Weight: 94.914 kg BMI 43.7 BP 116/72 Blood Pressure Location Lt brachial Position Sitting Respiration 18 Pulse 70 Pulse Source Monitor Temp 98.4 F Temperature Source Temporal Artery Pulse Oximetr (more content not included)... Normal [facility] Phosphoruson 09-14-2024 Phosphate [Mass/Vol] 2.6 mg/dL Normal 2.5-4.9 [facility] Comment on above: Order Comment: 1 Performed By: #### L 300.3900, L506.1001 #### [facility] [address] [place], [address] Protime w/INR Fingerstickon 08-31-2024 INR Coag (PPP) [Relative time] 2.4 {INR} Normal [facility] Comment on above: Result Comment: Crit ical Value > 4.0 Performed By: #### L 9200.0000 #### [facility] [address] [place], [place], [id number] Protime [place] 24.3 SEC High 11.7-14.9 [facility] Comment on above: Performed By: #### L 9200.0000 #### [facility] [address] [place], [place], [address] Capillary blood internationa l normalized ratio (INR)Ordered By: Juni Epstein on 03-27-2024 INR Coag (BldC) [Relative time] 3.1 [facility] Comment on above: Critical Value > 4.0 Whole blood prothrombin time Ordered By: Juni Epstein on 03-27-2024 PT Coag (Bld) [Time] 33.6 s 11.7-14.9 [facility] Absolute lymphocyte countOrd ered By: Josue Leal on 03-16-2024 Lymphocytes Auto (Unsp spec) [#/Vol] 2.26 10*3/uL 0.83-4.51 [facility] Automated lymphocyte count a s percentage of total leukocytesOrdered By: Josue Leal on 03-16-2024 Lymphocytes/100 WBC Auto (Unsp spec) 42.2 % 19-41 [facility] Basophil percentageOrdered B y: Josue Leal on 03-16-2024 Basophil percentage 2.6 mg/dL 2.5-4.9 [facility] Basophils/100 WBC (Bld) 0.6 % 0-1 [facility] Bilirubin [Mass/Vol] 0.40 mg/dL 0.20-1.00 [facility] Comment on above: For patients on eltr ombopag therapy, use of Dimension [place] TBIL is not recommended. Chloride [Moles/Vol] 106 mmol/L 98-107 [facility] Eosinophils/100 WBC (Bld) 5.0 % 0-5 [facility] Glucose [Mass/Vol] 160 mg/dL 74-106 [facility] Comment on above: Fasting Glucose resu lt greater than or equal to 126 mg/dL suggests DIABETES MELLITUS per A.D.A. criteria. Hemoglobin (Bld) [Mass/Vol] 11.9 g/dL 12.0-15.0 [facility] LDH [Catalytic activity/Vol] 171 U/L 84-246 [facility] Monocytes/100 WBC (Bld) 6.2 % 0-10 [facility] Neutrophils (Bld) [#/Vol] 2.5 10*3/uL 2.0-7.7 [facility] Neutrophils/100 WBC (Bld) 46.0 % 47-70 [facility] Potassium [Moles/Vol] 4.4 mmol/L 3.5-5.1 [facility] Protein [Mass/Vol] 6.6 g/dL 6.4-8.2 [facility] Sodium [Moles/Vol] 139 mmol/L 136-145 [facility] WBC (Bld) [#/Vol] 5.4 10*3/uL 4.4-11.0 [facility] Determination of erythrocyte mean corpuscular volume (MCV)Ordered By: Josue Leal on 03-16-2024 MCV (RBC) [Entitic vol] 97.2 fL 81-99 [facility] Erythrocyte distribution wid th ratioOrdered By: Josue Leal on 03-16-2024 Erythrocyte distribution width (RBC) [Ratio] 13.6 % 11.6-14.6 [facility] Erythrocyte distribution wid th standard deviationOrdered By: Josue Leal on 03-16-2024 Erythrocyte distribution width (RBC) [Entitic vol] 48.4 fL 35.1-43.9 [facility] Hematocrit Auto (Bld) [Volum e fraction]Ordered By: Josue Leal on 03-16-2024 Hematocrit (Bld) [Volume fraction] 37.6 % 37-47 [facility] Immature granulocytes/100 WB C Auto (Bld)Ordered By: Josue Leal on 03-16-2024 Immature granulocytes/100 WBC (Bld) 0.000 % 0.0-0.9 [facility] Comment on above: IG% - Immature Granu locytes (promyelocytes, myelocytes and metamyelocytes) > 1% indicates that a LEFT SHIFT is Present. Laboratory - Chemistry and C hemistry - challengeOrdered By: Josue Leal on 03-16-2024 Albumin/Globulin [Mass ratio] 1.0 {ratio} 0.9-2.4 [facility] ALP [Catalytic activity/Vol] 40 U/L 45-117 [facility] ALT [Catalytic activity/Vol] 21 U/L 13-56 [facility] CO2 [Moles/Vol] 27.0 mmol/L 21.0-32.0 [facility] Globulin (S) [Mass/Vol] 3.3 g/dL 2.2-4.2 [facility] Magnesium [Mass/Vol] 2.1 mg/dL 1.6-2.6 [facility] Urea nitrogen/Creatinine [Mass ratio] 10.7 mg/mg 10-20 [facility] - Hematology and Cell countsOrdered By: Josue Leal on 03-16-2024 MCH (RBC) [Entitic mass] 30.7 pg 27.0-32.0 [facility] MCHC (RBC) [Mass/Vol] 31.6 g/dL 32-36 [facility] Nucleated RBC/100 WBC (Bld) [Ratio] 0 % 0-5 [facility] Platelet mean volume (Bld) [Entitic vol] 8.9 fL 6.2-12.0 [facility] Platelets (Bld) [#/Vol] 207 10*3/uL 150-450 [facility] No Panel InformationOrdered By: Josue Leal on 03-16-2024 Estimated Creatinine Clearance Calc 41.94 ml/min [facility] Estimated GFR (MDRD) Amer 60 mL/min >60 [facility] Comment on above: GFR Calc Estimated GFR (MDRD) Non-Af Amer 50 mL/min >60 [facility] Comment on above: Non- GFR Calc Vitamin D 25-Hydroxy 76.5 ng/mL [facility] Comment on above: Vitamin D 25(OH) Sta tus Range Deficiency <20 ng/mL (50nmol/L) Insufficiency 20 - 30 ng/mL (50 - 75 nmol/L) Sufficiency 30 - 100 ng/mL (75 - 250 nmol/L) Toxicity >100 ng/mL (>250 nmol/L) RBC Auto (Bld) [#/Vol]Ordere d By: Josue Leal on 03-16-2024 RBC (Bld) [#/Vol] 3.87 10*6/uL 4.2-5.4 [facility] Serum or plasma calcium pk urement (mass/volume)Ordered By: Josue Leal on 03-16-2024 Calcium [Mass/Vol] 8.5 mg/dL 8.5-10.1 [facility] Serum or plasma creatinine m easurement (mass/volume)Ordered By: Josue Leal on 03-16-2024 Creatinine [Mass/Vol] 1.12 mg/dL 0.55-1.02 [facility] Comment on above: The validity of the calculated GFR & GFRAA in patients over 70 years has not been determined. Clinical correlation is essential. Serum or plasma urea nitroge n measurement (mass/volume)Ordered By: Josue Leal on 03-16-2024 Urea nitrogen [Mass/Vol] 12 mg/dL 7-18 [facility] Thin prep Papanicolaou smear with manual screeningOrdered By: Josue Leal on 03-16-2024 Thin prep Papanicolaou smear with manual screening 3.3 g/dL 3.2-5.0 [facility] Thin prep Papanicolaou smear with manual screening 23 U/L 15-37 [facility] Thin prep Papanicolaou smear with manual screening 6 5-15 [facility] No Panel Informationon 01-16 INR International Normalized Ratio 2.2 [facility] No Panel Informationon 12-19 INR International Normalized Ratio 3.1 [facility] - CoagulationOrde red By: Juni Epstein on 10-09-2023 INR Coag (Bld) [Relative time] 2.4 {INR} [facility] Comment on above: Critical Value > 4.0 Whole blood prothrombin time Ordered By: Juni Epstein on 10-09-2023 PT Coag (Bld) [Time] 26.0 s 11.7-14.9 [facility] Laboratory - CoagulationOrde red By: Juni Epstein on 09-11-2023 INR Coag (Bld) [Relative time] 1.9 {INR} [facility] Comment on above: Critical Value > 4.0 Whole blood prothrombin time Ordered By: Juni Epstein on 09-11-2023 PT Coag (Bld) [Time] 21.1 s 11.7-14.9 [facility] Absolute lymphocyte countOrd ered By: Josue Leal on 08-20-2023 Lymphocytes Auto (Unsp spec) [#/Vol] 2.48 10*3/uL 0.83-4.51 [facility] Basophil percentageOrdered B y: Josue Leal on 08-20-2023 Basophils/100 WBC (Bld) 0.9 % 0-1 [facility] Bilirubin [Mass/Vol] 0.40 mg/dL 0.20-1.00 [facility] Comment on above: For patients on eltr ombopag therapy, use of Dimension [place] TBIL is not recommended. Chloride [Moles/Vol] 104 mmol/L 98-107 [facility] Eosinophils/100 WBC (Bld) 5.3 % 0-5 [facility] Glucose [Mass/Vol] 122 mg/dL 74-106 [facility] Comment on above: Fasting Glucose resu lt from 100 to 125 mg/dL suggests IMPAIRED HOMEOSTASIS per A.D.A. criteria. LDH [Catalytic activity/Vol] 167 U/L 84-246 [facility] Neutrophils (Bld) [#/Vol] 2.2 10*3/uL 2.0-7.7 [facility] Neutrophils/100 WBC (Bld) 40.6 % 47-70 [facility] Potassium [Moles/Vol] 4.1 mmol/L 3.5-5.1 [facility] Protein [Mass/Vol] 6.8 g/dL 6.4-8.2 [facility] Sodium [Moles/Vol] 138 mmol/L 136-145 [facility] WBC (Bld) [#/Vol] 5.5 10*3/uL 4.4-11.0 [facility] Blood erythrocytes count (nu mber/volume)Ordered By: Josue Leal on 08-20-2023 RBC (Bld) [#/Vol] 3.81 10*6/uL 4.2-5.4 [facility] Blood hemoglobin measurement (mass/volume)Ordered By: Josue Leal on 08-20-2023 Hemoglobin (Bld) [Mass/Vol] 11.6 g/dL 12.0-15.0 [facility] Blood lymphocytes/100 leukoc ytesOrdered By: Josue Leal on 08-20-2023 Lymphocytes/100 WBC (Bld) 45.3 % 19-41 [facility] Blood monocytes/100 leukocyt esOrdered By: Josue Leal on 08-20-2023 Monocytes/100 WBC (Bld) 7.5 % 0-10 [facility] Blood platelet mean volumeOr dered By: Josue Leal on 08-20-2023 Platelet mean volume (Bld) [Entitic vol] 9.0 fL 6.2-12.0 [facility] Determination of erythrocyte mean corpuscular volume (MCV)Ordered By: Josue Leal on 08-20-2023 MCV (RBC) [Entitic vol] 98.4 fL 81-99 [facility] Hematocrit Auto (Bld) [Volum e fraction]Ordered By: Josue Leal on 08-20-2023 Hematocrit (Bld) [Volume fraction] 37.5 % 37-47 [facility] - Chemistry and C hemistry - challengeOrdered By: Josue Leal on 08-20-2023 ALP [Catalytic activity/Vol] 75 U/L 45-117 [facility] ALT [Catalytic activity/Vol] 23 U/L 13-56 [facility] CO2 [Moles/Vol] 30.0 mmol/L 21.0-32.0 [facility] Globulin (S) [Mass/Vol] 3.3 g/dL 2.2-4.2 [facility] Urea nitrogen/Creatinine [Mass ratio] 19.1 mg/mg 10-20 [facility] - Hematology and Cell countsOrdered By: Josue Leal on 08-20-2023 Erythrocyte distribution width (RBC) [Entitic vol] 50.7 fL 35.1-43.9 [facility] Erythrocyte distribution width (RBC) [Ratio] 14.1 % 11.6-14.6 [facility] Immature granulocytes/100 WBC (Bld) 0.400 % 0.0-0.9 [facility] Comment on above: IG% - Immature Granu locytes (promyelocytes, myelocytes and metamyelocytes) > 1% indicates that a LEFT SHIFT is Present. MCH (RBC) [Entitic mass] 30.4 pg 27.0-32.0 [facility] Nucleated RBC/100 WBC (Bld) [Ratio] 0 % 0-5 [facility] MCHC Auto (RBC) [Mass/Vol]Or dered By: Josue Leal on 08-20-2023 MCHC (RBC) [Mass/Vol] 30.9 g/dL 32-36 [facility] No Panel InformationOrdered By: Josue Leal on 08-20-2023 Estimated Creatinine Clearance Calc 22.86 ml/min [facility] Estimated GFR (MDRD) Amer 46 mL/min >60 [facility] Comment on above: GFR Calc Estimated GFR (MDRD) Non-Af Amer 38 mL/min >60 [facility] Comment on above: Non- GFR Calc Vitamin D 25-Hydroxy 50.9 ng/mL [facility] Comment on above: Vitamin D 25(OH) Sta tus Range Deficiency <20 ng/mL (50nmol/L) Insufficiency 20 - 30 ng/mL (50 - 75 nmol/L) Sufficiency 30 - 100 ng/mL (75 - 250 nmol/L) Toxicity >100 ng/mL (>250 nmol/L) Platelets bldOrdered By: Gonzalo Leal on 08-20-2023 Platelets (Bld) [#/Vol] 221 10*3/uL 150-450 [facility] Serum or plasma albumin pk urement (mass/volume)Ordered By: Josue Leal on 08-20-2023 Albumin [Mass/Vol] 3.5 g/dL 3.2-5.0 [facility] Serum or plasma albumin/glob ulin mass ratioOrdered By: Josue Leal on 08-20-2023 Albumin/Globulin [Mass ratio] 1.1 {ratio} 0.9-2.4 [facility] Serum or plasma calcium pk urement (mass/volume)Ordered By: Josue Leal on 08-20-2023 Calcium [Mass/Vol] 8.4 mg/dL 8.5-10.1 [facility] Serum or plasma creatinine m easurement (mass/volume)Ordered By: Josue Leal on 08-20-2023 Creatinine [Mass/Vol] 1.41 mg/dL 0.55-1.02 [facility] Comment on above: The validity of the calculated GFR & GFRAA in patients over 70 years has not been determined. Clinical correlation is essential. Serum or plasma urea nitroge n measurement (mass/volume)Ordered By: Josue Leal on 08-20-2023 Urea nitrogen [Mass/Vol] 27 mg/dL 7-18 [facility] Thin prep Papanicolaou smear with manual screeningOrdered By: Josue Leal on 08-20-2023 Thin prep Papanicolaou smear with manual screening 22 U/L 15-37 [facility] Thin prep Papanicolaou smear with manual screening 4 5-15 [facility] Laboratory - CoagulationOrde red By: Juni Epstein on 08-09-2023 INR Coag (Bld) [Relative time] 2.6 {INR} [facility] Comment on above: Critical Value > 4.0 Whole blood prothrombin time Ordered By: Juni Epstein on 08-09-2023 PT Coag (Bld) [Time] 28.3 s 11.7-14.9 [facility] Basophil percentageOrdered B y: J Luis Lai on 07-30-2023 Bilirubin [Mass/Vol] 0.50 mg/dL 0.20-1.00 [facility] Comment on above: For patients on eltr ombopag therapy, use of Dimension [place] TBIL is not recommended. Chloride [Moles/Vol] 104 mmol/L 98-107 [facility] Cholesterol [Mass/Vol] 149 mg/dL <200 [facility] Comment on above: <200 mg/dL Desirable 200-240 mg/dL Borderline >240 mg/dL High Risk Glucose [Mass/Vol] 109 mg/dL 74-106 [facility] Comment on above: Fasting Glucose resu lt from 100 to 125 mg/dL suggests IMPAIRED HOMEOSTASIS per A.D.A. criteria. Potassium [Moles/Vol] 4.7 mmol/L 3.5-5.1 [facility] Protein [Mass/Vol] 6.6 g/dL 6.4-8.2 [facility] Sodium [Moles/Vol] 139 mmol/L 136-145 [facility] Triglyceride [Mass/Vol] 126 mg/dL <199 [facility] Comment on above: The drugs N-Acetylcy steine and Metamizole may falsely depress this assay.Serum Triglycerides Reference Interval Normal <150 mg/dL Borderline high 150 - 199 mg/dL High 200 - 499 mg/dL Very High > or = 500 mg/dL WBC (Bld) [#/Vol] 5.1 10*3/uL 4.4-11.0 [facility] Blood erythrocytes count (nu mber/volume)Ordered By: J Luis Lai on 07-30-2023 RBC (Bld) [#/Vol] 3.82 10*6/uL 4.2-5.4 [facility] Blood hemoglobin measurement (mass/volume)Ordered By: J Luis Lai on 07-30-2023 Hemoglobin (Bld) [Mass/Vol] 11.6 g/dL 12.0-15.0 [facility] Blood platelet mean volumeOr dered By: J Luis Lai on 07-30-2023 Platelet mean volume (Bld) [Entitic vol] 9.6 fL 6.2-12.0 [facility] Determination of erythrocyte mean corpuscular volume (MCV)Ordered By: J Luis Lai on 07-30-2023 MCV (RBC) [Entitic vol] 99.2 fL 81-99 [facility] Hematocrit Auto (Bld) [Volum e fraction]Ordered By: J Luis Lai on 07-30-2023 Hematocrit (Bld) [Volume fraction] 37.9 % 37-47 [facility] Laboratory - Chemistry and C hemistry - challengeOrdered By: J Luis Lai on 07-30-2023 ALP [Catalytic activity/Vol] 64 U/L 45-117 [facility] ALT [Catalytic activity/Vol] 22 U/L 13-56 [facility] CO2 [Moles/Vol] 30.0 mmol/L 21.0-32.0 [facility] Cobalamin (Vitamin B12) [Mass/Vol] 447 pg/mL 211-911 [facility] [facility] Globulin (S) [Mass/Vol] 3.1 g/dL 2.2-4.2 [facility] Urea nitrogen/Creatinine [Mass ratio] 11.7 mg/mg 10-20 [facility] Laboratory - Hematology and Cell countsOrdered By: J Luis Lai on 07-30-2023 Erythrocyte distribution width (RBC) [Entitic vol] 50.6 fL 35.1-43.9 [facility] Erythrocyte distribution width (RBC) [Ratio] 13.9 % 11.6-14.6 [facility] MCH (RBC) [Entitic mass] 30.4 pg 27.0-32.0 [facility] MCHC Auto (RBC) [Mass/Vol]Or dered By: J Luis Lai on 07-30-2023 MCHC (RBC) [Mass/Vol] 30.6 g/dL 32-36 [facility] No Panel InformationOrdered By: J Luis Lai on 07-30-2023 Estimated GFR (MDRD) Amer 61 mL/min >60 [facility] Comment on above: GFR Calc Estimated GFR (MDRD) Non-Af Amer 50 mL/min >60 [facility] Comment on above: Non- GFR Calc Thyroid Stimulating Hormone (TSH) 2.07 uIU/mL 0.358-3.74 [facility] Vitamin D 25-Hydroxy 53.3 ng/mL [facility] Comment on above: Vitamin D 25(OH) Sta tus Range Deficiency <20 ng/mL (50nmol/L) Insufficiency 20 - 30 ng/mL (50 - 75 nmol/L) Sufficiency 30 - 100 ng/mL (75 - 250 nmol/L) Toxicity >100 ng/mL (>250 nmol/L) Platelets bldOrdered By: Jeromy milesannabelle Joelle on 07-30-2023 Platelets (Bld) [#/Vol] 211 10*3/uL 150-450 [facility] Serum or plasma albumin pk urement (mass/volume)Ordered By: J Luis Lai on 07-30-2023 Albumin [Mass/Vol] 3.5 g/dL 3.2-5.0 [facility] Serum or plasma albumin/glob ulin mass ratioOrdered By: J Luis Lai on 07-30-2023 Albumin/Globulin [Mass ratio] 1.1 {ratio} 0.9-2.4 [facility] Serum or plasma calcium pk urement (mass/volume)Ordered By: J Luis Lai on 07-30-2023 Calcium [Mass/Vol] 9.0 mg/dL 8.5-10.1 [facility] Serum or plasma cholesterol in HDL measurement (mass/volume)Ordered By: J Luis Lai on 07-30-2023 Cholesterol in HDL [Mass/Vol] 49 mg/dL >40 [facility] Comment on above: The drugs N-Acetylcy steine and Metamizole may falsely depress this assay. Reference Range HDL <40 mg/dL Low HDL Cholesterol HDL >or= 60 mg/dL High HDL Cholesterol Serum or plasma cholesterol in VLDL measurement (mass/volume)Ordered By: J Luis Lai on 07-30-2023 Cholesterol in VLDL [Mass/Vol] 25 mg/dL 5-40 [facility] Serum or plasma creatinine m easurement (mass/volume)Ordered By: J Luis Lai on 07-30-2023 Creatinine [Mass/Vol] 1.11 mg/dL 0.55-1.02 [facility] Comment on above: The validity of the calculated GFR & GFRAA in patients over 70 years has not been determined. Clinical correlation is essential. Serum or plasma low density lipoprotein (LDL) cholesterol measurement (mass/volume)Ordered By: J Luis Lai on 07-30-2023 Cholesterol in LDL [Mass/Vol] 75 mg/dL 0-130 [facility] Serum or plasma urea nitroge n measurement (mass/volume)Ordered By: J Luis Lai on 07-30-2023 Urea nitrogen [Mass/Vol] 13 mg/dL 7-18 [facility] Thin prep Papanicolaou smear with manual screeningOrdered By: J Luis Lai on 07-30-2023 Thin prep Papanicolaou smear with manual screening 21 U/L 15-37 [facility] Thin prep Papanicolaou smear with manual screening 5 5-15 [facility] Laboratory - CoagulationOrde red By: Juni Epstein on 07-05-2023 INR Coag (Bld) [Relative time] 2.7 {INR} [facility] Comment on above: Critical Value > 4.0 Whole blood prothrombin time Ordered By: Juni Epstein on 07-05-2023 PT Coag (Bld) [Time] 29.5 s 11.7-14.9 [facility] Laboratory - CoagulationOrde red By: Juni Epstein on 05-27-2023 INR Coag (Bld) [Relative time] 2.1 {INR} [facility] Comment on above: Critical Value > 4.0 Whole blood prothrombin time Ordered By: Juni Epstein on 05-27-2023 PT Coag (Bld) [Time] 22.8 s 11.7-14.9 [facility] Laboratory - CoagulationOrde red By: Dr. Epstein on 04-12-2023 INR Coag (Bld) [Relative time] 2.9 {INR} [facility] Comment on above: Critical Value > 4.0 Whole blood prothrombin time Ordered By: Dr. Epstein on 04-12-2023 PT Coag (Bld) [Time] 31.0 s 11.7-14.9 [facility] No Panel Informationon 01-24 INR International Normalized Ratio 2.4 [facility] Laboratory - Coagulationon 1 12-24-2021 INR Coag (Bld) [Relative time] 2.2 {INR} [facility] Work Phone: Comment on above: Critical Value > 4.0 Whole blood prothrombin time on 10-24-2022 PT Coag (Bld) [Time] 26.0 s 11.7-14.9 [facility] Work Phone: No Panel Informationon 09-25 Miscellaneous Test See comment [facility] Work Phone: Comment on above: TEST RESULT LIMITSVi tamin D, 25-HydroxyVitamin D, 25-Hydroxy 26.9 Low ng/mL 30.0-100.0Vitamin D deficiency has been defined by the [place] ofMedicine and an Endocrine Society practice guideline as alevel of serum 25-OH vitamin D less than 20 ng/mL (1,2).The Endocrine Society went on to further define vitamin Dinsufficiency as a level between 21 and 29 ng/mL (2).1. IOM ([place] of Medicine). 2010. Dietary reference intakes for calcium and D. [place]: The National Academies Press.2. Yu MF, [place], Wai CARDOZA, et al. Evaluation, treatment, and prevention of vitamin D deficiency: an Endocrine Society clinical practice guideline. JCEM. 2010; 96(7):1911-30. TESTING PERFORMED AT [facility]. ORIGINAL REPORT ON FILE IN LAB CONTAINS ADDITIONAL TEST SITE INFORMATION. Basophil percentageon 2021 Basophil percentage 2.9 mg/dL 2.5-4.9 [facility] Work Phone: Chloride [Moles/Vol] 108 mmol/L 98-[address] [facility] [address] [facility] Work Phone: Glucose [Mass/Vol] 80 mg/dL 74-106 [facility] Work Phone: Potassium [Moles/Vol] 4.5 mmol/L 3.5-5.1 [facility] Work Phone: Sodium [Moles/Vol] 140 mmol/L 136-145 [facility] Work Phone: Laboratory - Chemistry and C hemistry - challengeon 09-19-2022 CO2 [Moles/Vol] 29.0 mmol/L 21.0-32.0 [facility] Work Phone: Urea nitrogen/Creatinine [Mass ratio] 11.7 mg/mg 10-20 [facility] Work Phone: No Panel Informationon 09-19 Estimated GFR (MDRD) Amer 67 mL/min >60 [facility] Work Phone: Comment on above: GFR Calc Estimated GFR (MDRD) Non-Af Amer 55 mL/min >60 [facility] Work Phone: Comment on above: Non- GFR Calc Ionized Calcium 5.1 mg/dL 4.5-5.6 [facility] Work Phone: Comment on above: Performed at: [address] [id number] Director: Humble Green PhD, Phone: [phone] Parathyroid Hormone (Intact) 252.7 pg/mL 18.4-80.1 [facility] Work Phone: Thyroid Stimulating Hormone (TSH) 1.82 uIU/mL 0.358-3.74 [facility] Work Phone: Serum or plasma calcium pk urement (mass/volume)on 09-19-2022 Calcium [Mass/Vol] 8.6 mg/dL 8.5-10.1 [facility] Work Phone: Serum or plasma creatinine m easurement (mass/volume)on 09-19-2022 Creatinine [Mass/Vol] 1.03 mg/dL 0.55-1.02 [facility] Work Phone: Comment on above: The validity of the calculated GFR & GFRAA in patients over 70 years has not been determined. Clinical correlation is essential. Serum or plasma urea nitroge n measurement (mass/volume)on 09-19-2022 Urea nitrogen [Mass/Vol] 12 mg/dL 7-18 [facility] Work Phone: Thin prep Papanicolaou smear with manual screeningon 09-19-2022 Thin prep Papanicolaou smear with manual screening 3 5-15 [facility] Work Phone: Absolute lymphocyte counton 09-07-2022 Lymphocytes Auto (Unsp spec) [#/Vol] 1.89 10*3/uL 0.83-4.51 [facility] Work Phone: Basophil percentageon 2021 Basophil percentage 0 SEEN /hpf 0-5 [facility] Work Phone: [phone] Basophils/100 WBC (Bld) 0.5 % 0-1 [facility] Work Phone: Chloride [Moles/Vol] 107 mmol/L 98-107 [facility] Work Phone: [phone] Eosinophils/100 WBC (Bld) 3.5 % 0-5 [facility] Work Phone: Glucose [Mass/Vol] 72 mg/dL 74-106 [facility] Work Phone: [phone] Neutrophils (Bld) [#/Vol] 3.1 10*3/uL 2.0-7.7 [facility] Work Phone: [phone] Neutrophils/100 WBC (Bld) 54.1 % 47-70 [facility] Work Phone: [phone] Potassium [Moles/Vol] 3.9 mmol/L 3.5-5.1 [facility] Work Phone: Sodium [Moles/Vol] 142 mmol/L 136-145 [facility] Work Phone: WBC (Bld) [#/Vol] 5.7 10*3/uL 4.4-11.0 [facility] Work Phone: Bilirubin Test strip Ql (U)o n 09-07-2022 Bilirubin Ql (U) Negative Negative [facility] Work Phone: Blood erythrocytes count (nu mber/volume)on 09-07-2022 RBC (Bld) [#/Vol] 3.67 10*6/uL 4.2-5.4 [facility] Work Phone: Blood hemoglobin measurement (mass/volume)on 09-07-2022 Hemoglobin (Bld) [Mass/Vol] 11.4 g/dL 12.0-15.0 [facility] Work Phone: Blood lymphocytes/100 leukoc yteson 09-07-2022 Lymphocytes/100 WBC (Bld) 33.0 % 19-41 [facility] Work Phone: Blood monocytes/100 leukocyt eson 09-07-2022 Monocytes/100 WBC (Bld) 8.6 % 0-10 [facility] Work Phone: Blood platelet mean volumeon 09-07-2022 Platelet mean volume (Bld) [Entitic vol] 9.1 fL 6.2-12.0 [facility] Work Phone: Determination of erythrocyte mean corpuscular volume (MCV)on 09-07-2022 MCV (RBC) [Entitic vol] 99.2 fL 81-99 [facility] Work Phone: Hematocrit Auto (Bld) [Volum e fraction]on 09-07-2022 Hematocrit (Bld) [Volume fraction] 36.4 % 37-47 [facility] Work Phone: Hyaline casts LM.LPF (Urine sed) [#/Area]on 09-07-2022 Hyaline casts (Urine sed) [#/Area] 25 /[LPF] 0-5 [facility] Work Phone: INR in Blood by Coagulation assayon 09-07-2022 INR Coag (Bld) [Relative time] 2.3 {INR} [facility] Work Phone: Ketones Test strip Ql (U)on 09-07-2022 Ketones Ql (U) Negative Negative [facility] Work Phone: Laboratory - Chemistry and C hemistry - challengeon 09-07-2022 CO2 [Moles/Vol] 29.0 mmol/L 21.0-32.0 [facility] Work Phone: Urea nitrogen/Creatinine [Mass ratio] 11.3 mg/mg 10-20 [facility] Work Phone: Laboratory - Coagulationon 1 PT Coag (PPP) [Time] 25.4 s 11.7-14.9 [facility] Work Phone: Laboratory - Hematology and Cell countson 09-07-2022 Erythrocyte distribution width (RBC) [Entitic vol] 48.9 fL 35.1-43.9 [facility] Work Phone: Erythrocyte distribution width (RBC) [Ratio] 13.4 % 11.6-14.6 [facility] Work Phone: Immature granulocytes/100 WBC (Bld) 0.300 % 0.0-0.9 [facility] Work Phone: Comment on above: IG% - Immature Granu locytes (promyelocytes, myelocytes and metamyelocytes) > 1% indicates that a LEFT SHIFT is Present. MCH (RBC) [Entitic mass] 31.1 pg 27.0-32.0 [facility] Work Phone: Nucleated RBC/100 WBC (Bld) [Ratio] 0 % 0-5 [facility] Work Phone: MCHC Auto (RBC) [Mass/Vol]on 09-07-2022 MCHC (RBC) [Mass/Vol] 31.3 g/dL 32-36 [facility] Work Phone: Mucus LM Ql (Urine sed)on Mucus Ql (Urine sed) 3+ /hpf [facility] Work Phone: Nitrite Test strip Ql (U)on 09-07-2022 Nitrite Ql (U) Negative Negative [facility] Work Phone: No Panel Informationon 09-07 Estimated Creatinine Clearance Calc 66.51 ml/min [facility] Work Phone: Estimated GFR (MDRD) Amer 64 mL/min >60 [facility] Work Phone: Comment on above: GFR Calc Estimated GFR (MDRD) Non-Af Amer 53 mL/min >60 [facility] Work Phone: Comment on above: Non- GFR Calc Troponin I High Sensitivity 3 pg/mL 3.0-54.0 [facility] Work Phone: Comment on above: Please Note: New [place] t Units and Gender Specific Reference Ranges. For more information see Policy Stat Procedure [place] High Sensitivity Troponin (TNIH) and attachments. Platelets bldon 09-07-2022 Platelets (Bld) [#/Vol] 210 10*3/uL 150-450 [facility] Work Phone: Protein Test strip Ql (U)on 09-07-2022 Protein Ql (U) Negative Negative [facility] Work Phone: Serum or plasma calcium pk urement (mass/volume)on 09-07-2022 Calcium [Mass/Vol] 8.2 mg/dL 8.5-10.1 [facility] Work Phone: Serum or plasma creatinine m easurement (mass/volume)on 09-07-2022 Creatinine [Mass/Vol] 1.06 mg/dL 0.55-1.02 [facility] Work Phone: Comment on above: The validity of the calculated GFR & GFRAA in patients over 70 years has not been determined. Clinical correlation is essential. Serum or plasma urea nitroge n measurement (mass/volume)on 09-07-2022 Urea nitrogen [Mass/Vol] 12 mg/dL 7-18 [facility] Work Phone: Squamous epithelial cells de tection in urine sediment by light microscopyon 09-07-2022 Epithelial cells.squamous LM Ql (Urine sed) 0-5 SEEN /hpf 5-10 [facility] Work Phone: Thin prep Papanicolaou smear with manual screeningon 09-07-2022 Thin prep Papanicolaou smear with manual screening 6 -15 [facility] Work Phone: Urine blood detectionon RBC Ql (U) Negative Negative [facility] Work Phone: RBC Ql (U) 0 SEEN /hpf 0-5 [facility] Work Phone: Urine clarityon 09-07-2022 Clarity (U) Clear Clear [facility] Work Phone: Urine color determinationon 09-07-2022 Color (U) Yellow Yellow [facility] Work Phone: Urine glucose detectionon Glucose Ql (U) Normal mg/dl Normal [facility] Work Phone: Urine leukocyte esterase det ection by dipstickon 09-07-2022 Leukocyte esterase Test strip Ql (U) Negative Negative [facility] Work Phone: Urine pHon 09-07-2022 pH (U) 5.0 [pH] 5.0 - 8.0 [facility] Work Phone: Urine sediment bacteria coun t by microscopy (number/high power field)on 09-07-2022 Bacteria LM.HPF (Urine sed) [#/Area] 1 /[HPF] None Seen [facility] Work Phone: Urine specific gravity measu rementon 09-07-2022 Specific gravity (U) [Rel density] 1.020 1.002-1.030 [facility] Work Phone: Urobilinogen Auto test strip Ql (U)on 09-07-2022 Urobilinogen Ql (U) Normal mg/dl Normal [facility] Work Phone: Laboratory - Coagulationon 0 07-17-2022 INR Coag (Bld) [Relative time] 2.5 {INR} [facility] Work Phone: Comment on above: Critical Value > 4.0 Whole blood prothrombin time on 07-17-2022 PT Coag (Bld) [Time] 28.9 s 11.7-14.9 [facility] Work Phone: Absolute lymphocyte counton 06-13-2022 Lymphocytes Auto (Unsp spec) [#/Vol] 2.01 10*3/uL 0.83-4.51 [facility] Work Phone: Basophil percentageon 2021 Basophils/100 WBC (Bld) 0.6 % 0-1 [facility] Work Phone: Bilirubin [Mass/Vol] 0.30 mg/dL 0.20-1.00 [facility] Work Phone: Comment on above: For patients on eltr ombopag therapy, use of Dimension [place] TBIL is not recommended. Chloride [Moles/Vol] 105 mmol/L 98-107 [facility] Work Phone: Eosinophils/100 WBC (Bld) 5.0 % 0-5 [facility] Work Phone: Glucose [Mass/Vol] 111 mg/dL 74-106 [facility] Work Phone: Comment on above: Fasting Glucose resu lt from 100 to 125 mg/dL suggests IMPAIRED HOMEOSTASIS per A.D.A. criteria. Neutrophils (Bld) [#/Vol] 2.6 10*3/uL 2.0-7.7 [facility] Work Phone: Neutrophils/100 WBC (Bld) 49.0 % 47-70 [facility] Work Phone: Potassium [Moles/Vol] 3.9 mmol/L 3.5-5.1 [facility] Work Phone: Protein [Mass/Vol] 6.5 g/dL 6.4-8.2 [facility] Work Phone: Sodium [Moles/Vol] 140 mmol/L 136-145 [facility] Work Phone: WBC (Bld) [#/Vol] 5.2 10*3/uL 4.4-11.0 [facility] Work Phone: Blood erythrocytes count (nu mber/volume)on 06-13-2022 RBC (Bld) [#/Vol] 3.76 10*6/uL 4.2-5.4 [facility] Work Phone: Blood hemoglobin measurement (mass/volume)on 06-13-2022 Hemoglobin (Bld) [Mass/Vol] 11.4 g/dL 12.0-15.0 [facility] Work Phone: [phone] Blood lymphocytes/100 leukoc yteson 06-13-2022 Lymphocytes/100 WBC (Bld) 38.7 % 19-41 [facility] Work Phone: Blood monocytes/100 leukocyt eson 06-13-2022 Monocytes/100 WBC (Bld) 6.5 % 0-10 [facility] Work Phone: Blood platelet mean volumeon 06-13-2022 Platelet mean volume (Bld) [Entitic vol] 9.7 fL 6.2-12.0 [facility] Work Phone: Determination of erythrocyte mean corpuscular volume (MCV)on 06-13-2022 MCV (RBC) [Entitic vol] 97.6 fL 81-99 [facility] Work Phone: Hematocrit Auto (Bld) [Volum e fraction]on 06-13-2022 Hematocrit (Bld) [Volume fraction] 36.7 % 37-47 [facility] Work Phone: INR in Blood by Coagulation assayon 06-13-2022 INR Coag (Bld) [Relative time] 1.8 {INR} [facility] Work Phone: Laboratory - Chemistry and C hemistry - challengeon 06-13-2022 ALP [Catalytic activity/Vol] 75 U/L 45-117 [facility] Work Phone: ALT [Catalytic activity/Vol] 19 U/L 13-56 [facility] Work Phone: CO2 [Moles/Vol] 32.0 mmol/L 21.0-32.0 [facility] Work Phone: [phone] Globulin (S) [Mass/Vol] 3.1 g/dL 2.2-4.2 [facility] Work Phone: Urea nitrogen/Creatinine [Mass ratio] 12.1 mg/mg 10-20 [facility] Work Phone: Laboratory - Coagulationon 0 06-13-2022 PT Coag (PPP) [Time] 20.7 s 11.7-14.9 [facility] Work Phone: Laboratory - Hematology and Cell countson 06-13-2022 Erythrocyte distribution width (RBC) [Entitic vol] 49.7 fL 35.1-43.9 [facility] Work Phone: Erythrocyte distribution width (RBC) [Ratio] 13.8 % 11.6-14.6 [facility] Work Phone: [phone] Immature granulocytes/100 WBC (Bld) 0.200 % 0.0-0.9 [facility] Work Phone: Comment on above: IG% - Immature Granu locytes (promyelocytes, myelocytes and metamyelocytes) > 1% indicates that a LEFT SHIFT is Present. MCH (RBC) [Entitic mass] 30.3 pg 27.0-32.0 [facility] Work Phone: Nucleated RBC/100 WBC (Bld) [Ratio] 0 % 0-5 [facility] Work Phone: MCHC Auto (RBC) [Mass/Vol]on 06-13-2022 MCHC (RBC) [Mass/Vol] 31.1 g/dL 32-36 [facility] Work Phone: No Panel Informationon 06-13 Estimated GFR (MDRD) Amer 64 mL/min >60 [facility] Work Phone: Comment on above: GFR Calc Estimated GFR (MDRD) Non-Af Amer 53 mL/min >60 [facility] Work Phone: Comment on above: Non- GFR Calc Platelets bldon 06-13-2022 Platelets (Bld) [#/Vol] 206 10*3/uL 150-450 [facility] Work Phone: Serum or plasma albumin pk urement (mass/volume)on 06-13-2022 Albumin [Mass/Vol] 3.4 g/dL 3.2-5.0 [facility] Work Phone: Serum or plasma albumin/glob ulin mass ratioon 06-13-2022 Albumin/Globulin [Mass ratio] 1.1 {ratio} 0.9-2.4 [facility] Work Phone: Serum or plasma calcium pk urement (mass/volume)on 06-13-2022 Calcium [Mass/Vol] 8.7 mg/dL 8.5-10.1 [facility] Work Phone: Serum or plasma creatinine m easurement (mass/volume)on 06-13-2022 Creatinine [Mass/Vol] 1.07 mg/dL 0.55-1.02 [facility] Work Phone: Comment on above: The validity of the calculated GFR & GFRAA in patients over 70 years has not been determined. Clinical correlation is essential. Serum or plasma urea nitroge n measurement (mass/volume)on 06-13-2022 Urea nitrogen [Mass/Vol] 13 mg/dL 7-18 [facility] Work Phone: Thin prep Papanicolaou smear with manual screeningon 06-13-2022 Thin prep Papanicolaou smear with manual screening 23 U/L 15-37 [facility] Work Phone: Thin prep Papanicolaou smear with manual screening 3 5-15 [facility] Work Phone: Thin prep Papanicolaou smear with manual screening 164 U/L 84-246 [facility] Work Phone: [phone] Laboratory - Coagulationon 0 04-24-2022 INR Coag (Bld) [Relative time] 2.2 {INR} [facility] Work Phone: Comment on above: Critical Value > 4.0 Whole blood prothrombin time on 04-24-2022 PT Coag (Bld) [Time] 26.1 s 11.7-14.9 [facility] Work Phone: Laboratory - Coagulationon 0 03-30-2022 INR Coag (Bld) [Relative time] 1.9 {INR} [facility] Work Phone: Comment on above: Critical Value > 4.0 Whole blood prothrombin time on 03-30-2022 PT Coag (Bld) [Time] 23.1 s 11.7-14.9 [facility] Work Phone: Absolute lymphocyte counton 03-21-2022 Lymphocytes Auto (Unsp spec) [#/Vol] 1.66 10*3/uL 0.83-4.51 [facility] Work Phone: Basophil percentageon 2021 Basophils/100 WBC (Bld) 1.1 % 0-1 [facility] Work Phone: Chloride [Moles/Vol] 104 mmol/L 98-107 [facility] Work Phone: Eosinophils/100 WBC (Bld) 6.5 % 0-5 [facility] Work Phone: Glucose [Mass/Vol] 129 mg/dL 74-106 [facility] Work Phone: Comment on above: Fasting Glucose resu lt greater than or equal to 126 mg/dL suggests DIABETES MELLITUS per A.D.A. criteria. Neutrophils (Bld) [#/Vol] 3.0 10*3/uL 2.0-7.7 [facility] Work Phone: Neutrophils/100 WBC (Bld) 55.2 % 47-70 [facility] Work Phone: Potassium [Moles/Vol] 4.2 mmol/L 3.5-5.1 [facility] Work Phone: Sodium [Moles/Vol] 138 mmol/L 136-145 [facility] Work Phone: WBC (Bld) [#/Vol] 5.4 10*3/uL 4.4-11.0 [facility] Work Phone: Blood erythrocytes count (nu mber/volume)on 03-21-2022 RBC (Bld) [#/Vol] 3.44 10*6/uL 4.2-5.4 [facility] Work Phone: Blood hemoglobin measurement (mass/volume)on 03-21-2022 Hemoglobin (Bld) [Mass/Vol] 10.7 g/dL 12.0-15.0 [facility] Work Phone: Blood lymphocytes/100 leukoc yteson 03-21-2022 Lymphocytes/100 WBC (Bld) 30.7 % 19-41 [facility] Work Phone: Blood monocytes/100 leukocyt eson 03-21-2022 Monocytes/100 WBC (Bld) 6.3 % 0-10 [facility] Work Phone: Blood platelet mean volumeon 03-21-2022 Platelet mean volume (Bld) [Entitic vol] 9.1 fL 6.2-12.0 [facility] Work Phone: Determination of erythrocyte mean corpuscular volume (MCV)on 03-21-2022 MCV (RBC) [Entitic vol] 97.1 fL 81-99 [facility] Work Phone: Hematocrit Auto (Bld) [Volum e fraction]on 03-21-2022 Hematocrit (Bld) [Volume fraction] 33.4 % 37-47 [facility] Work Phone: Hemoglobin in reticulocytes (mass per reticulocyte)on 03-21-2022 Hemoglobin (Reticulocytes) [Entitic mass] 30.3 pg 30-35 [facility] Work Phone: Iron measurement (mass/mass) on 03-21-2022 Iron (Unsp spec) [Mass/Mass] 43 ug/dL 50-170 [facility] Work Phone: [phone] Laboratory - Chemistry and C hemistry - challengeon 03-21-2022 Natriuretic peptide B (Bld) [Mass/Vol] 121.2 pg/mL 0-100 [facility] Work Phone: CO2 [Moles/Vol] 29.0 mmol/L 21.0-32.0 [facility] Work Phone: Cobalamin (Vitamin B12) [Mass/Vol] 754 pg/mL 211-911 [facility] Work Phone: Urea nitrogen/Creatinine [Mass ratio] 11.0 mg/mg 10-20 [facility] Work Phone: Laboratory - Hematology and Cell countson 03-21-2022 Erythrocyte distribution width (RBC) [Entitic vol] 48.7 fL 35.1-43.9 [facility] Work Phone: Erythrocyte distribution width (RBC) [Ratio] 13.8 % 11.6-14.6 [facility] Work Phone: Immature granulocytes/100 WBC (Bld) 0.200 % 0.0-0.9 [facility] Work Phone: Comment on above: IG% - Immature Granu locytes (promyelocytes, myelocytes and metamyelocytes) > 1% indicates that a LEFT SHIFT is Present. MCH (RBC) [Entitic mass] 31.1 pg 27.0-32.0 [facility] Work Phone: Nucleated RBC/100 WBC (Bld) [Ratio] 0 % 0-5 [facility] Work Phone: MCHC Auto (RBC) [Mass/Vol]on 03-21-2022 MCHC (RBC) [Mass/Vol] 32.0 g/dL 32-36 [facility] Work Phone: No Panel Informationon 03-21 Estimated GFR (MDRD) Amer 57 mL/min >60 [facility] Work Phone: Comment on above: GFR Calc Estimated GFR (MDRD) Non-Af Amer 47 mL/min >60 [facility] Work Phone: Comment on above: Non- GFR Calc Immature Reticulocyte Fraction 27.80 % 3.00-15.90 [facility] Work Phone: Reticulocyte Count 2.65 % 0.5-1.5 [facility] Work Phone: Thyroid Stimulating Hormone (TSH) 1.79 uIU/mL 0.358-3.74 [facility] Work Phone: Total Iron Binding Capacity 321 ug/dL 250-450 [facility] Work Phone: Platelets bldon 03-21-2022 Platelets (Bld) [#/Vol] 353 10*3/uL 150-450 [facility] Work Phone: Serum or plasma calcium pk urement (mass/volume)on 03-21-2022 Calcium [Mass/Vol] 8.7 mg/dL 8.5-10.1 [facility] Work Phone: Serum or plasma creatinine m easurement (mass/volume)on 03-21-2022 Creatinine [Mass/Vol] 1.18 mg/dL 0.55-1.02 [facility] Work Phone: Comment on above: The validity of the calculated GFR & GFRAA in patients over 70 years has not been determined. Clinical correlation is essential. Serum or plasma ferritin marianna surement (mass/volume)on 03-21-2022 Ferritin [Mass/Vol] 68 ng/mL 8-252 [facility] Work Phone: Serum or plasma urea nitroge n measurement (mass/volume)on 03-21-2022 Urea nitrogen [Mass/Vol] 13 mg/dL 7-18 [facility] Work Phone: Thin prep Papanicolaou smear with manual screeningon 03-21-2022 Thin prep Papanicolaou smear with manual screening 5 5-15 [facility] Work Phone: .Auto Diffon 03-07-2022 Basophil, Absolute 0.00 10 3/mcL Normal 0.00-0.19 [facility] ([place]) Comment on above: Performed By: #### A LB, GFR, CBC, BMP, ABOG, ANSG, ADIFF, A1C, ANEU #### [address] [address] Basophils/100 WBC (Bld) 0.0 % Normal 0.0-2.5 [facility] ([place]) Comment on above: Performed By: #### A LB, GFR, CBC, BMP, ABOG, ANSG, ADIFF, A1C, ANEU #### [address] [address] Eosinophil, Absolute 0.00 10 3/mcL Normal 0.00-0.40 [facility] ([place]) Comment on above: Performed By: #### A LB, GFR, CBC, BMP, ABOG, ANSG, ADIFF, A1C, ANEU #### [address] [address] Eosinophils/100 WBC (Bld) 0.1 % Normal 0.0-7.0 [facility] ([place]) Comment on above: Performed By: #### A LB, GFR, CBC, BMP, ABOG, ANSG, ADIFF, A1C, ANEU #### [address] [address] Lymphocyte, Absolute 1.20 10 3/mcL Normal 0.77-3.85 [facility] ([place]) Comment on above: Performed By: #### A LB, GFR, CBC, BMP, ABOG, ANSG, ADIFF, A1C, ANEU #### [address] [address] Lymphocytes/100 WBC (Bld) 14.1 % Normal 10.0-50.0 [facility] ([place]) Comment on above: Performed By: #### A LB, GFR, CBC, BMP, ABOG, ANSG, ADIFF, A1C, ANEU #### [address] [address] Monocyte, Absolute 0.60 10 3/mcL Normal 0.15-1.00 [facility] ([place]) Comment on above: Performed By: #### A LB, GFR, CBC, BMP, ABOG, ANSG, ADIFF, A1C, ANEU #### [address] [address] Monocytes/100 WBC (Bld) 7.0 % Normal 1.7-13.0 [facility] ([place]) Comment on above: Performed By: #### A LB, GFR, CBC, BMP, ABOG, ANSG, ADIFF, A1C, ANEU #### [address] [address] Neutrophils/100 WBC (Bld) 78.8 % Normal 37.0-80.0 [facility] ([place]) Comment on above: Performed By: #### A LB, GFR, CBC, BMP, ABOG, ANSG, ADIFF, A1C, ANEU #### [address] [address] .GFRon 03-07-2022 GFR 50 ml/min/1.73sqm Normal [facility] ([place]) Comment on above: Result Comment: GFR Population mean for , Non- Americans Ages 20-29 = 116 mL/min/1.73 sq.m. Ages 30-39 = 107 mL/min/1.73 sq.m. Ages 40-49 = 99 mL/min/1.73 sq.m. Ages 50-59 = 93 mL/min/1.73 sq.m. Ages 60-69 = 85 mL/min/1.73 sq.m. Ages 70+ = 75 mL/min/1.73 sq.m. Chronic Kidney Disease: Less than 60 mL/min/1.73 square meters End Stage Renal Disease: Less than 15 mL/min/1.73 square meters Performed By: #### A LB, GFR, CBC, BMP, ABOG, ANSG, ADIFF, A1C, ANEU #### [address] [address] GFR Non- 41 ml/min/1.73sqm Normal [facility] ([place]) Comment on above: Result Comment: GFR Population mean for , Non- Americans Ages 20-29 = 116 mL/min/1.73 sq.m. Ages 30-39 = 107 mL/min/1.73 sq.m. Ages 40-49 = 99 mL/min/1.73 sq.m. Ages 50-59 = 93 mL/min/1.73 sq.m. Ages 60-69 = 85 mL/min/1.73 sq.m. Ages 70+ = 75 mL/min/1.73 sq.m. Chronic Kidney Disease: Less than 60 mL/min/1.73 square meters End Stage Renal Disease: Less than 15 mL/min/1.73 square meters Performed By: #### A LB, GFR, CBC, BMP, ABOG, ANSG, ADIFF, A1C, ANEU #### [address] [address] .NEUABSon 03-07-2022 Neutrophil, Absolute 6.50 10 3/mcL High 2.85-6.16 [facility] ([place] Comment on above: Performed By: #### A LB, GFR, CBC, BMP, ABOG, ANSG, ADIFF, A1C, ANEU #### [address] [address] BMPon 03-07-2022 BUN/Creatinine Ratio 17 ratio Normal 7-27 [facility] [place] Comment on above: Performed By: #### A LB, GFR, CBC, BMP, ABOG, ANSG, ADIFF, A1C, ANEU #### [address] [address] Calcium [Mass/Vol] 8.4 mg/dL Normal 8.4-10.2 [facility] ([place] Comment on above: Performed By: #### A LB, GFR, CBC, BMP, ABOG, ANSG, ADIFF, A1C, ANEU #### [address] [address] Chloride [Moles/Vol] 103 mmol/L Normal 98-107 [facility] [place] Comment on above: Performed By: #### A LB, GFR, CBC, BMP, ABOG, ANSG, ADIFF, A1C, ANEU #### [address] [address] CO2 [Moles/Vol] 27 mmol/L Normal 23-31 [facility] ([place]) Comment on above: Performed By: #### A LB, GFR, CBC, BMP, ABOG, ANSG, ADIFF, A1C, ANEU #### [address] [address] Creatinine [Mass/Vol] 1.26 mg/dL High 0.55-1.02 [facility] ([place]) Comment on above: Performed By: #### A LB, GFR, CBC, BMP, ABOG, ANSG, ADIFF, A1C, ANEU #### [address] [address] Electrolyte Balance 8.0 mEq/L Normal 4.0-15.0 [facility] ([place]) Comment on above: Performed By: #### A LB, GFR, CBC, BMP, ABOG, ANSG, ADIFF, A1C, ANEU #### [address] [address] Glucose [Mass/Vol] 138 mg/dL High 83-110 [facility] ([place] Comment on above: Performed By: #### A LB, GFR, CBC, BMP, ABOG, ANSG, ADIFF, A1C, ANEU #### [address] [address] Potassium [Moles/Vol] 5.1 mmol/L Normal 3.5-5.1 [facility] ([place]) Comment on above: Performed By: #### A LB, GFR, CBC, BMP, ABOG, ANSG, ADIFF, A1C, ANEU #### [address] [address] Sodium [Moles/Vol] 138 mmol/L Normal 136-145 [facility] ([place]) Comment on above: Performed By: #### A LB, GFR, CBC, BMP, ABOG, ANSG, ADIFF, A1C, ANEU #### [place] [id number] Urea nitrogen [Mass/Vol] 22 mg/dL High 7-18 [facility] ([place]) Comment on above: Performed By: #### A LB, GFR, CBC, BMP, ABOG, ANSG, ADIFF, A1C, ANEU #### [address] [address] CBCon 03-07-2022 Erythrocyte distribution width (RBC) [Ratio] 14.2 % Normal 11.5-14.5 [facility] ([place]) Comment on above: Performed By: #### A LB, GFR, CBC, BMP, ABOG, ANSG, ADIFF, A1C, ANEU #### [address] [address] Hematocrit (Bld) [Volume fraction] 29.2 % Low 37.0-47.0 [facility] ([place] Comment on above: Performed By: #### A LB, GFR, CBC, BMP, ABOG, ANSG, ADIFF, A1C, ANEU #### [address] [address] Hgb 9.9 G/dL Low 12.0-16.0 [facility] ([place]) Comment on above: Performed By: #### A LB, GFR, CBC, BMP, ABOG, ANSG, ADIFF, A1C, ANEU #### [address] [address] MCH (RBC) [Entitic mass] 31.8 pg High 27.0-31.2 [facility] ([place]) Comment on above: Performed By: #### A LB, GFR, CBC, BMP, ABOG, ANSG, ADIFF, A1C, ANEU #### [address] [address] MCHC 33.9 G/dL Normal 33.0-37.0 [facility] ([place]) Comment on above: Performed By: #### A LB, GFR, CBC, BMP, ABOG, ANSG, ADIFF, A1C, ANEU #### [address] [address] MCV (RBC) [Entitic vol] 93.9 fL Normal 80.0-94.0 [facility] ([place]) Comment on above: Performed By: #### A LB, GFR, CBC, BMP, ABOG, ANSG, ADIFF, A1C, ANEU #### [address] [address] Platelet 189 10 3/mcL Normal 130-400 [facility] ([place]) Comment on above: Performed By: #### A LB, GFR, CBC, BMP, ABOG, ANSG, ADIFF, A1C, ANEU #### [address] [address] Platelet mean volume (Bld) [Entitic vol] 7.3 fL Low 7.4-10.4 [facility] ([place]) Comment on above: Performed By: #### A LB, GFR, CBC, BMP, ABOG, ANSG, ADIFF, A1C, ANEU #### [address] [address] RBC 3.11 10 6/mcL Low 4.20-5.40 [facility] ([place]) Comment on above: Performed By: #### A LB, GFR, CBC, BMP, ABOG, ANSG, ADIFF, A1C, ANEU #### [address] [address] WBC 8.20 10 3/mcL Normal 4.60-10.80 [facility] ([place]) Comment on above: Performed By: #### A LB, GFR, CBC, BMP, ABOG, ANSG, ADIFF, A1C, ANEU #### [place] [address] LABORATORYOrdered By: Danya Marie on 03-07-2022 Basophil, Absolute 0.00 103/mcL Invalid Interpretation Code 0.00 - 0.19 10^3/mcL AO Auto Heme SS Basophils/100 WBC (Bld) 0.0 % Invalid Interpretation Code 0.0 - 2.5 % AO Auto Heme SS Calcium [Mass/Vol] 8.4 mg/dL Invalid Interpretation Code 8.4 - 10.2 mg/dL AO ADM SS Chloride [Moles/Vol] 103 mmol/L Invalid Interpretation Code 98 - 107 mmol/L AO ADM SS CO2 [Moles/Vol] 27 mmol/L Invalid Interpretation Code 23 - 31 mmol/L AO ADM SS Creatinine [Mass/Vol] 1.26 mg/dL Invalid Interpretation Code 0.55 - 1.02 mg/dL AO ADM SS Electrolyte Balance 8.0 mEq/L Invalid Interpretation Code 4.0 - 15.0 mEq/L AO ADM SS Eosinophil, Absolute 0.00 103/mcL Invalid Interpretation Code 0.00 - 0.40 10^3/mcL AO Auto Heme SS Eosinophils/100 WBC (Bld) 0.1 % Invalid Interpretation Code 0.0 - 7.0 % AO Auto Heme SS Erythrocyte distribution width (RBC) [Ratio] 14.2 % Invalid Interpretation Code 11.5 - 14.5 % AO Auto Heme SS Glucose [Mass/Vol] 138 mg/dL Invalid Interpretation Code 83 - 110 mg/dL AO ADM SS Hematocrit (Bld) [Volume fraction] 29.2 % Invalid Interpretation Code 37.0 - 47.0 % AO Auto Heme SS Hemoglobin (Bld) [Mass/Vol] 9.9 G/dL Invalid Interpretation Code 12.0 - 16.0 G/dL AO Auto Heme SS INR Coag (PPP) [Relative time] 1.0 {INR} Invalid Interpretation Code 0.9 - 1.2 ratio AO Coag SS Lymphocyte, Absolute 1.20 103/mcL Invalid Interpretation Code 0.77 - 3.85 10^3/mcL AO Auto Heme SS Lymphocytes/100 WBC (Bld) 14.1 % Invalid Interpretation Code 10.0 - 50.0 % AO Auto Heme SS MCH (RBC) [Entitic mass] 31.8 pg Invalid Interpretation Code 27.0 - 31.2 pg AO Auto Heme SS MCHC (RBC) [Mass/Vol] 33.9 G/dL Invalid Interpretation Code 33.0 - 37.0 G/dL AO Auto Heme SS MCV (RBC) [Entitic vol] 93.9 fL Invalid Interpretation Code 80.0 - 94.0 fL AO Auto Heme SS Monocyte, Absolute 0.60 103/mcL Invalid Interpretation Code 0.15 - 1.00 10^3/mcL AO Auto Heme SS Monocytes/100 WBC (Bld) 7.0 % Invalid Interpretation Code 1.7 - 13.0 % AO Auto Heme SS Neutrophil, Absolute 6.50 103/mcL Invalid Interpretation Code 2.85 - 6.16 10^3/mcL AO Auto Heme SS Neutrophils/100 WBC (Bld) 78.8 % Invalid Interpretation Code 37.0 - 80.0 % AO Auto Heme SS Platelet mean volume (Bld) [Entitic vol] 7.3 fL Invalid Interpretation Code 7.4 - 10.4 fL AO Auto Heme SS Platelets (Bld) [#/Vol] 189 103/mcL Invalid Interpretation Code 130 - 400 10^3/mcL AO Auto Heme SS Potassium [Moles/Vol] 5.1 mmol/L Invalid Interpretation Code 3.5 - 5.1 mmol/L AO ADM SS PT Coag (PPP) [Time] 11.3 s Invalid Interpretation Code 9.7 - 14.3 seconds AO Coag SS RBC (Bld) [#/Vol] 3.11 106/mcL Invalid Interpretation Code 4.20 - 5.40 10^6/mcL AO Auto Heme SS Sodium [Moles/Vol] 138 mmol/L Invalid Interpretation Code 136 - 145 mmol/L AO ADM SS Urea nitrogen [Mass/Vol] 22 mg/dL Invalid Interpretation Code 7 - 18 mg/dL AO ADM SS Urea nitrogen/Creatinine [Mass ratio] 17 ratio Invalid Interpretation Code 7 - 27 ratio AO ADM SS WBC (Bld) [#/Vol] 8.20 103/mcL Invalid Interpretation Code 4.60 - 10.80 10^3/mcL AO Auto Heme SS LABORATORYOrdered By: SYSTEM SYSTEM on 03-07-2022 GFR 50 ml/min/1.73sqm Invalid Interpretation Code AO Chemistry S GFR Non- 41 ml/min/1.73sqm Inval id Interpretation Code AO Chemistry S PROon 03-07-2022 INR Coag (PPP) [Relative time] 1.0 {INR} Normal 0.9-1.2 [facility] ([place]) Comment on above: Order Comment: order ed secondary to warfarin order Result Comment: Gianluca zapata Dose 2.0 - 3.0 High Dose 2.5 - 3.5 The recommended therapeutic range for oral anticoagulant therapy is: LOW RISK: Prophylaxis of venous thrombosis INR: 2.0 - 3.0 Treatment of pulmonary embolism 2.0 - 3.0 Prevention of systemic embolism 2.0 - 3.0 HIGH RISK: Mechanical prosthetic valves 2.5 - 3.5 Performed By: #### P RO #### [place] [address] PT Coag (PPP) [Time] 11.3 s Normal 9.7-14.3 [facility] Comment on above: Order Comment: order ed secondary to warfarin order Performed By: #### P RO #### [place] [address] Gel ABOon 03-06-2022 ABO/Rh Interp Positive Invalid Interpretation Code [facility] ([place]) Comment on above: Performed By: #### A LB, GFR, CBC, BMP, ABOG, ANSG, ADIFF, A1C, ANEU #### [address] [address] Gel ABSon 03-06-2022 Antibody Screen Gel Negative Normal [facility] ([place]) Comment on above: Performed By: #### A LB, GFR, CBC, BMP, ABOG, ANSG, ADIFF, A1C, ANEU #### [address] [address] LABORATORYOrdered By: Mireille Quintanilla on 03-06-2022 Glucose [Mass/Vol] 138 mg/dL Invalid Interpretation Code 82 - 115 mg/dL [facility] LABORATORYOrdered By: Elsa White on 03-06-2022 ABO/Rh Interp Positive Invalid Interpretation Code AO BB SS Antibody Screen Gel Negative ABSC (03/06/22 7:09 AM) Invalid Interpretation Code AO BB SS LABORATORYOrdered By: Delmi Moore on 03-06-2022 INR Coag (PPP) [Relative time] 1.0 {INR} Invalid Interpretation Code 0.9 - 1.2 ratio AO Coag SS PT Coag (PPP) [Time] 11.0 s Invalid Interpretation Code 9.7 - 14.3 seconds AO Coag SS LABORATORYOrdered By: Vianey boyd on 03-06-2022 Glucose [Mass/Vol] 108 mg/dL Invalid Interpretation Code 82 - 115 mg/dL [facility] PROon 03-06-2022 INR Coag (PPP) [Relative time] 1.0 {INR} Normal 0.9-1.2 [facility] ([place]) Comment on above: Result Comment: Gianluca dard Dose 2.0 - 3.0 High Dose 2.5 - 3.5 The recommended therapeutic range for oral anticoagulant therapy is: LOW RISK: Prophylaxis of venous thrombosis INR: 2.0 - 3.0 Treatment of pulmonary embolism 2.0 - 3.0 Prevention of systemic embolism 2.0 - 3.0 HIGH RISK: Mechanical prosthetic valves 2.5 - 3.5 Performed By: #### A LB, GFR, CBC, BMP, ABOG, ANSG, ADIFF, A1C, ANEU #### [address] [address] PT Coag (PPP) [Time] 11.0 s Normal 9.7-14.3 [facility] Comment on above: Performed By: #### A LB, GFR, CBC, BMP, ABOG, ANSG, ADIFF, A1C, ANEU #### [address] [address] XR SHOULDER MINIMUM 2 VIEWS LEFTon 03-06-2022 XR SHOULDER MINIMUM 2 VIEWS LEFT ORIGINAL EXAMINATION: TWO XRAY VIEWS OF THE LEFT SHOULDER 03/06/2022 10:44 am COMPARISON: None. HISTORY: ORDERING SYSTEM PROVIDED HISTORY: Reason for Exam: Status Post Arthroplasty FINDINGS: Postsurgical changes status post left total shoulder arthroplasty are noted without acute fracture, dislocation, or hardware failure. Mild subcutaneous emphysema is noted and is expected in the postsurgical state. Remaining bony structures appear intact. IMPRESSION: Expected postsurgical changes status post left total shoulder arthroplasty. Interpreted by: Heath Michael MD Preliminary Report By: Heath Michael MD Electronically signed By Heath Michael MD Dictated Date: 03/06/2022 10:52:53 AM Prelim Date: 03/06/2022 10:53:36 AM Sign Date: 03/06/2022 10:53:36 AM Ordering Provider: SANTHOSH Gonzalez [facility] ([place]) .Auto Diffon 02-19-2022 Basophil, Absolute 0.00 10 3/mcL Normal 0.00-0.19 [facility] ([place]) Comment on above: Performed By: #### A LB, GFR, CBC, BMP, ABOG, ANSG, ADIFF, A1C, ANEU #### [address] [address] Basophils/100 WBC (Bld) 0.7 % Normal 0.0-2.5 [facility] ([place]) Comment on above: Performed By: #### A LB, GFR, CBC, BMP, ABOG, ANSG, ADIFF, A1C, ANEU #### [address] [address] Eosinophil, Absolute 0.30 10 3/mcL Normal 0.00-0.40 [facility] ([place]) Comment on above: Performed By: #### A LB, GFR, CBC, BMP, ABOG, ANSG, ADIFF, A1C, ANEU #### [address] [address] Eosinophils/100 WBC (Bld) 5.6 % Normal 0.0-7.0 [facility] ([place]) Comment on above: Performed By: #### A LB, GFR, CBC, BMP, ABOG, ANSG, ADIFF, A1C, ANEU #### [address] [address] Lymphocyte, Absolute 1.50 10 3/mcL Normal 0.77-3.85 [facility] ([place]) Comment on above: Performed By: #### A LB, GFR, CBC, BMP, ABOG, ANSG, ADIFF, A1C, ANEU #### [address] [address] Lymphocytes/100 WBC (Bld) 30.8 % Normal 10.0-50.0 [facility] ([place]) Comment on above: Performed By: #### A LB, GFR, CBC, BMP, ABOG, ANSG, ADIFF, A1C, ANEU #### [address] [address] Monocyte, Absolute 0.30 10 3/mcL Normal 0.15-1.00 [facility] ([place]) Comment on above: Performed By: #### A LB, GFR, CBC, BMP, ABOG, ANSG, ADIFF, A1C, ANEU #### [address] [address] Monocytes/100 WBC (Bld) 6.5 % Normal 1.7-13.0 [facility] ([place]) Comment on above: Performed By: #### A LB, GFR, CBC, BMP, ABOG, ANSG, ADIFF, A1C, ANEU #### [address] [address] Neutrophils/100 WBC (Bld) 56.4 % Normal 37.0-80.0 [facility] ([place]) Comment on above: Performed By: #### A LB, GFR, CBC, BMP, ABOG, ANSG, ADIFF, A1C, ANEU #### [address] [address] .GFRon 02-19-2022 GFR 50 ml/min/1.73sqm Normal [facility] ([place]) Comment on above: Result Comment: GFR Population mean for , Non- Americans Ages 20-29 = 116 mL/min/1.73 sq.m. Ages 30-39 = 107 mL/min/1.73 sq.m. Ages 40-49 = 99 mL/min/1.73 sq.m. Ages 50-59 = 93 mL/min/1.73 sq.m. Ages 60-69 = 85 mL/min/1.73 sq.m. Ages 70+ = 75 mL/min/1.73 sq.m. Chronic Kidney Disease: Less than 60 mL/min/1.73 square meters End Stage Renal Disease: Less than 15 mL/min/1.73 square meters Performed By: #### A LB, GFR, CBC, BMP, ABOG, ANSG, ADIFF, A1C, ANEU #### [address] [address] GFR Non- 41 ml/min/1.73sqm Normal [facility] ([place]) Comment on above: Result Comment: GFR Population mean for , Non- Americans Ages 20-29 = 116 mL/min/1.73 sq.m. Ages 30-39 = 107 mL/min/1.73 sq.m. Ages 40-49 = 99 mL/min/1.73 sq.m. Ages 50-59 = 93 mL/min/1.73 sq.m. Ages 60-69 = 85 mL/min/1.73 sq.m. Ages 70+ = 75 mL/min/1.73 sq.m. Chronic Kidney Disease: Less than 60 mL/min/1.73 square meters End Stage Renal Disease: Less than 15 mL/min/1.73 square meters Performed By: #### A LB, GFR, CBC, BMP, ABOG, ANSG, ADIFF, A1C, ANEU #### [address] [address] .NEUABSon 02-19-2022 Neutrophil, Absolute 2.80 10 3/mcL Low 2.85-6.16 [facility] ([place]) Comment on above: Performed By: #### A LB, GFR, CBC, BMP, ABOG, ANSG, ADIFF, A1C, ANEU #### [address] [address] A1Con 02-19-2022 HbA1c (Bld) [Mass fraction] 6.4 % Normal 4.3-6.4 [facility] ([place]) Comment on above: Performed By: #### A LB, GFR, CBC, BMP, ABOG, ANSG, ADIFF, A1C, ANEU #### [address] [address] ALBon 02-19-2022 Albumin Level 3.4 G/dL Normal 3.4-4.8 [facility] ([place]) Comment on above: Performed By: #### A LB, GFR, CBC, BMP, ABOG, ANSG, ADIFF, A1C, ANEU #### [address] [address] BMPon 02-19-2022 BUN/Creatinine Ratio 13 ratio Normal 7-27 [facility] Comment on above: Performed By: #### A LB, GFR, CBC, BMP, ABOG, ANSG, ADIFF, A1C, ANEU #### [address] [address] Calcium [Mass/Vol] 8.6 mg/dL Normal 8.4-10.2 [facility] ([place]) Comment on above: Performed By: #### A LB, GFR, CBC, BMP, ABOG, ANSG, ADIFF, A1C, ANEU #### [address] [address] Chloride [Moles/Vol] 103 mmol/L Normal 98-107 [facility] Comment on above: Performed By: #### A LB, GFR, CBC, BMP, ABOG, ANSG, ADIFF, A1C, ANEU #### [address] [address] CO2 [Moles/Vol] 32 mmol/L High 23-31 [facility] ([place]) Comment on above: Performed By: #### A LB, GFR, CBC, BMP, ABOG, ANSG, ADIFF, A1C, ANEU #### [address] [address] Creatinine [Mass/Vol] 1.25 mg/dL High 0.55-1.02 [facility] ([place]) Comment on above: Performed By: #### A LB, GFR, CBC, BMP, ABOG, ANSG, ADIFF, A1C, ANEU #### [address] [address] Electrolyte Balance 7.0 mEq/L Normal 4.0-15.0 [facility] ([place]) Comment on above: Performed By: #### A LB, GFR, CBC, BMP, ABOG, ANSG, ADIFF, A1C, ANEU #### [address] [address] Glucose [Mass/Vol] 111 mg/dL High 83-110 [facility] ([place]) Comment on above: Performed By: #### A LB, GFR, CBC, BMP, ABOG, ANSG, ADIFF, A1C, ANEU #### [address] [address] Potassium [Moles/Vol] 4.9 mmol/L Normal 3.5-5.1 [facility] ([place]) Comment on above: Performed By: #### A LB, GFR, CBC, BMP, ABOG, ANSG, ADIFF, A1C, ANEU #### [address] [address] Sodium [Moles/Vol] 142 mmol/L Normal 136-145 [facility]) Comment on above: Performed By: #### A LB, GFR, CBC, BMP, ABOG, ANSG, ADIFF, A1C, ANEU #### [address] [address] Urea nitrogen [Mass/Vol] 16 mg/dL Normal 7-18 [facility]) Comment on above: Performed By: #### A LB, GFR, CBC, BMP, ABOG, ANSG, ADIFF, A1C, ANEU #### [address] [address] [facility]Con 02-19-2022 Erythrocyte distribution width (RBC) [Ratio] 13.6 % Normal 11.5-14.5 [facility]) Comment on above: Order Comment: Pre-A dmission Testing Performed By: #### A LB, GFR, CBC, BMP, ABOG, ANSG, ADIFF, A1C, ANEU #### [address] [address] Hematocrit (Bld) [Volume fraction] 36.0 % Low 37.0-47.0 [facility] ([place]) Comment on above: Order Comment: Pre-A dmission Testing Performed By: #### A LB, GFR, CBC, BMP, ABOG, ANSG, ADIFF, A1C, ANEU #### [address] [address] Hgb 11.8 G/dL Low 12.0-16.0 [facility] ([place]) Comment on above: Order Comment: Pre-A dmission Testing Performed By: #### A LB, GFR, CBC, BMP, ABOG, ANSG, ADIFF, A1C, ANEU #### [address] [address] MCH (RBC) [Entitic mass] 30.7 pg Normal 27.0-31.2 [facility] ([place]) Comment on above: Order Comment: Pre-A dmission Testing Performed By: #### A LB, GFR, CBC, BMP, ABOG, ANSG, ADIFF, A1C, ANEU #### [address] [address] MCHC 32.8 G/dL Low 33.0-37.0 [facility] ([place]) Comment on above: Order Comment: Pre-A dmission Testing Performed By: #### A LB, GFR, CBC, BMP, ABOG, ANSG, ADIFF, A1C, ANEU #### [address] [address] MCV (RBC) [Entitic vol] 93.5 fL Normal 80.0-94.0 A [facility] ([place]) Comment on above: Order Comment: Pre-A dmission Testing Performed By: #### A LB, GFR, CBC, BMP, ABOG, ANSG, ADIFF, A1C, ANEU #### [address] [address] Platelet 204 10 3/mcL Normal 130-400 [facility] ([place]) Comment on above: Order Comment: Pre-A dmission Testing Performed By: #### A LB, GFR, CBC, BMP, ABOG, ANSG, ADIFF, A1C, ANEU #### [address] [address] Platelet mean volume (Bld) [Entitic vol] 7.7 fL Normal 7.4-10.4 [facility] ([place]) Comment on above: Order Comment: Pre-A dmission Testing Performed By: #### A LB, GFR, CBC, BMP, ABOG, ANSG, ADIFF, A1C, ANEU #### [address] [address] RBC 3.85 10 6/mcL Low 4.20-5.40 [facility] ([place]) Comment on above: Order Comment: Pre-A dmission Testing Performed By: #### A LB, GFR, CBC, BMP, ABOG, ANSG, ADIFF, A1C, ANEU #### [address] [address] WBC 4.90 10 3/mcL Normal 4.60-10.80 [facility] ([place]) Comment on above: Order Comment: Pre-A dmission Testing Performed By: #### A LB, GFR, CBC, BMP, ABOG, ANSG, ADIFF, A1C, ANEU #### [address] [address] Gel ABOon 02-19-2022 ABO/Rh Interp Positive Invalid Interpretation Code [facility] ([place]) Comment on above: Order Comment: SURG SHILOH 03/06/22 -AC Performed By: #### A LB, GFR, CBC, BMP, ABOG, ANSG, ADIFF, A1C, ANEU #### [address] [address] Gel ABSon 02-19-2022 Antibody Screen Gel Negative Normal [facility] ([place]) Comment on above: Order Comment: SURG SHILOH 03/06/22 -AC Performed By: #### A LB, GFR, CBC, BMP, ABOG, ANSG, ADIFF, A1C, ANEU #### [address] [address] LABORATORYOrdered By: Chely Green on 02-19-2022 ABO/Rh Interp Positive Invalid Interpretation Code AO BB SS Antibody Screen Gel Negative ABSC (02/19/22 10:57 AM) Invalid Interpretation Code AO BB SS Basophil, Absolute 0.00 103/mcL Invalid Interpretation Code 0.00 - 0.19 10^3/mcL AO Auto Heme SS Basophils/100 WBC (Bld) 0.7 % Invalid Interpretation Code 0.0 - 2.5 % AO Auto Heme SS Eosinophil, Absolute 0.30 103/mcL Invalid Interpretation Code 0.00 - 0.40 10^3/mcL AO Auto Heme SS Eosinophils/100 WBC (Bld) 5.6 % Invalid Interpretation Code 0.0 - 7.0 % AO Auto Heme SS Erythrocyte distribution width (RBC) [Ratio] 13.6 % Invalid Interpretation Code 11.5 - 14.5 % AO Auto Heme SS Hematocrit (Bld) [Volume fraction] 36.0 % Invalid Interpretation Code 37.0 - 47.0 % AO Auto Heme SS Hemoglobin (Bld) [Mass/Vol] 11.8 G/dL Invalid Interpretation Code 12.0 - 16.0 G/dL AO Auto Heme SS Lymphocyte, Absolute 1.50 103/mcL Invalid Interpretation Code 0.77 - 3.85 10^3/mcL AO Auto Heme SS Lymphocytes/100 WBC (Bld) 30.8 % Invalid Interpretation Code 10.0 - 50.0 % AO Auto Heme SS MCH (RBC) [Entitic mass] 30.7 pg Invalid Interpretation Code 27.0 - 31.2 pg AO Auto Heme SS MCHC (RBC) [Mass/Vol] 32.8 G/dL Invalid Interpretation Code 33.0 - 37.0 G/dL AO Auto Heme SS MCV (RBC) [Entitic vol] 93.5 fL Invalid Interpretation Code 80.0 - 94.0 fL AO Auto Heme SS Monocyte, Absolute 0.30 103/mcL Invalid Interpretation Code 0.15 - 1.00 10^3/mcL AO Auto Heme SS Monocytes/100 WBC (Bld) 6.5 % Invalid Interpretation Code 1.7 - 13.0 % AO Auto Heme SS Neutrophil, Absolute 2.80 103/mcL Invalid Interpretation Code 2.85 - 6.16 10^3/mcL AO Auto Heme SS Neutrophils/100 WBC (Bld) 56.4 % Invalid Interpretation Code 37.0 - 80.0 % AO Auto Heme SS Platelet mean volume (Bld) [Entitic vol] 7.7 fL Invalid Interpretation Code 7.4 - 10.4 fL AO Auto Heme SS Platelets (Bld) [#/Vol] 204 103/mcL Invalid Interpretation Code 130 - 400 10^3/mcL AO Auto Heme SS RBC (Bld) [#/Vol] 3.85 106/mcL Invalid Interpretation Code 4.20 - 5.40 10^6/mcL AO Auto Heme SS WBC (Bld) [#/Vol] 4.90 103/mcL Invalid Interpretation Code 4.60 - 10.80 10^3/mcL AO Auto Heme SS LABORATORYOrdered By: Gregory Dodosn on 02-19-2022 Albumin BCP dye [Mass/Vol] 3.4 G/dL Invalid Interpretation Code 3.4 - 4.8 G/dL AO ADM SS Calcium [Mass/Vol] 8.6 mg/dL Invalid Interpretation Code 8.4 - 10.2 mg/dL AO ADM SS Chloride [Moles/Vol] 103 mmol/L Invalid Interpretation Code 98 - 107 mmol/L AO ADM SS CO2 [Moles/Vol] 32 mmol/L Invalid Interpretation Code 23 - 31 mmol/L AO ADM SS Creatinine [Mass/Vol] 1.25 mg/dL Invalid Interpretation Code 0.55 - 1.02 mg/dL AO ADM SS Electrolyte Balance 7.0 mEq/L Invalid Interpretation Code 4.0 - 15.0 mEq/L AO ADM SS Glucose [Mass/Vol] 111 mg/dL Invalid Interpretation Code 83 - 110 mg/dL AO ADM SS HbA1c (Bld) [Mass fraction] 6.4 % Invalid Interpretation Code 4.3 - 6.4 % AO ADM SS Potassium [Moles/Vol] 4.9 mmol/L Invalid Interpretation Code 3.5 - 5.1 mmol/L AO ADM SS Sodium [Moles/Vol] 142 mmol/L Invalid Interpretation Code 136 - 145 mmol/L AO ADM SS Urea nitrogen [Mass/Vol] 16 mg/dL Invalid Interpretation Code 7 - 18 mg/dL AO ADM SS Urea nitrogen/Creatinine [Mass ratio] 13 ratio Invalid Interpretation Code 7 - 27 ratio AO ADM SS LABORATORYOrdered By: SYSTEM SYSTEM on 02-19-2022 GFR 50 ml/min/1.73sqm Invalid Interpretation Code AO Chemistry S GFR Non- 41 ml/min/1.73sqm Inval id Interpretation Code AO Chemistry S Basophil percentageon 2021 Bilirubin [Mass/Vol] 0.40 mg/dL 0.20-1.00 [facility] Work Phone: Comment on above: For patients on eltr ombopag therapy, use of Dimension [place] TBIL is not recommended. Cholesterol [Mass/Vol] 128 mg/dL <200 [facility] Work Phone: Comment on above: <200 mg/dL Desirable 200-240 mg/dL Borderline >240 mg/dL High Risk Protein [Mass/Vol] 6.5 g/dL 6.4-8.2 [facility] Work Phone: Triglyceride [Mass/Vol] 79 mg/dL <199 [facility] Work Phone: Comment on above: The drugs N-Acetylcy steine and Metamizole may falsely depress this assay.Serum Triglycerides Reference Interval Normal <150 mg/dL Borderline high 150 - 199 mg/dL High 200 - 499 mg/dL Very High > or = 500 mg/dL Direct bilirubinon 2 Bilirubin.direct [Mass/Vol] 0.14 mg/dL 0.00-0.30 [facility] Work Phone: INR in Blood by Coagulation assayon 02-08-2022 INR Coag (Bld) [Relative time] 2.6 {INR} [facility] Work Phone: Laboratory - Chemistry and C hemistry - challengeon 02-08-2022 ALP [Catalytic activity/Vol] 78 U/L 45-117 [facility] Work Phone: ALT [Catalytic activity/Vol] 21 U/L 13-56 [facility] Work Phone: Globulin (S) [Mass/Vol] 3.2 g/dL 2.2-4.2 [facility] Work Phone: Laboratory - Coagulationon 0 02-08-2022 PT Coag (PPP) [Time] 27.2 s 11.7-14.9 [facility] Work Phone: Serum or plasma albumin pk urement (mass/volume)on 02-08-2022 Albumin [Mass/Vol] 3.3 g/dL 3.2-5.0 [facility] Work Phone: Serum or plasma cholesterol in HDL measurement (mass/volume)on 02-08-2022 Cholesterol in HDL [Mass/Vol] 58 mg/dL >40 [facility] Work Phone: Comment on above: The drugs N-Acetylcy steine and Metamizole may falsely depress this assay. Reference Range HDL <40 mg/dL Low HDL Cholesterol HDL >or= 60 mg/dL High HDL Cholesterol Serum or plasma cholesterol in VLDL measurement (mass/volume)on 02-08-2022 Cholesterol in VLDL [Mass/Vol] 16 mg/dL 5-40 [facility] Work Phone: Serum or plasma low density lipoprotein (LDL) cholesterol measurement (mass/volume)on 02-08-2022 Cholesterol in LDL [Mass/Vol] 54 mg/dL 0-130 [facility] Work Phone: Thin prep Papanicolaou smear with manual screeningon 02-08-2022 Thin prep Papanicolaou smear with manual screening 29 U/L 15-37 [facility] Work Phone: Laboratory - Coagulationon 0 01-29-2022 INR Coag (Bld) [Relative time] 1.9 {INR} [facility] Work Phone: Comment on above: Critical Value > 4.0 Whole blood prothrombin time on 01-29-2022 PT Coag (Bld) [Time] 22.2 s 11.9-14.4 [facility] Work Phone: Absolute lymphocyte counton 12-21-2021 Lymphocytes Auto (Unsp spec) [#/Vol] 2.18 10*3/uL 0.83-4.51 [facility] Work Phone: Basophil percentageon 2021 Basophils/100 WBC (Bld) 1.0 % 0-1 [facility] Work Phone: Bilirubin [Mass/Vol] 0.40 mg/dL 0.20-1.00 [facility] Work Phone: Comment on above: For patients on eltr ombopag therapy, use of Dimension [place] TBIL is not recommended. Chloride [Moles/Vol] 105 mmol/L 98-107 [facility] Work Phone: [phone] Eosinophils/100 WBC (Bld) 7.5 % 0-5 [facility] Work Phone: Glucose [Mass/Vol] 105 mg/dL 74-106 [facility] Work Phone: Comment on above: Fasting Glucose resu lt from 100 to 125 mg/dL suggests IMPAIRED HOMEOSTASIS per A.D.A. criteria. Neutrophils (Bld) [#/Vol] 2.6 10*3/uL 2.0-7.7 [facility] Work Phone: Neutrophils/100 WBC (Bld) 44.8 % 47-70 [facility] Work Phone: Potassium [Moles/Vol] 4.4 mmol/L 3.5-5.1 [facility] Work Phone: Comment on above: Slight Hemolysis, Re sult may be falsely increased. Protein [Mass/Vol] 6.8 g/dL 6.4-8.2 [facility] Work Phone: Sodium [Moles/Vol] 139 mmol/L 136-145 [facility] Work Phone: WBC (Bld) [#/Vol] 5.7 10*3/uL 4.4-11.0 [facility] Work Phone: Blood erythrocytes count (nu mber/volume)on 12-21-2021 RBC (Bld) [#/Vol] 3.87 10*6/uL 4.2-5.4 [facility] Work Phone: Blood hemoglobin measurement (mass/volume)on 12-21-2021 Hemoglobin (Bld) [Mass/Vol] 12.2 g/dL 12.0-15.0 [facility] Work Phone: Blood lymphocytes/100 leukoc yteson 12-21-2021 Lymphocytes/100 WBC (Bld) 38.0 % 19-41 [facility] Work Phone: Blood monocytes/100 leukocyt eson 12-21-2021 Monocytes/100 WBC (Bld) 8.2 % 0-10 [facility] Work Phone: Blood platelet mean volumeon 12-21-2021 Platelet mean volume (Bld) [Entitic vol] 8.5 fL 6.2-12.0 [facility] Work Phone: [phone] Determination of erythrocyte mean corpuscular volume (MCV)on 12-21-2021 MCV (RBC) [Entitic vol] 98.2 fL 81-99 [facility] Work Phone: Hematocrit Auto (Bld) [Volum e fraction]on 12-21-2021 Hematocrit (Bld) [Volume fraction] 38.0 % 37-47 [facility] Work Phone: Laboratory - Chemistry and C hemistry - challengeon 12-21-2021 ALP [Catalytic activity/Vol] 72 U/L 45-117 [facility] Work Phone: ALT [Catalytic activity/Vol] 24 U/L 13-56 [facility] Work Phone: CO2 [Moles/Vol] 29.0 mmol/L 21.0-32.0 [facility] Work Phone: Globulin (S) [Mass/Vol] 3.5 g/dL 2.2-4.2 [facility] Work Phone: Urea nitrogen/Creatinine [Mass ratio] 12.0 mg/mg 10-20 [facility] Work Phone: Laboratory - Hematology and Cell countson 12-21-2021 Erythrocyte distribution width (RBC) [Entitic vol] 45.6 fL 35.1-43.9 [facility] Work Phone: Erythrocyte distribution width (RBC) [Ratio] 12.8 % 11.6-14.6 [facility] Work Phone: Immature granulocytes/100 WBC (Bld) 0.500 % 0.0-0.9 [facility] Work Phone: Comment on above: IG% - Immature Granu locytes (promyelocytes, myelocytes and metamyelocytes) > 1% indicates that a LEFT SHIFT is Present. MCH (RBC) [Entitic mass] 31.5 pg 27.0-32.0 [facility] Work Phone: Nucleated RBC/100 WBC (Bld) [Ratio] 0 % 0-5 [facility] Work Phone: MCHC Auto (RBC) [Mass/Vol]on 12-21-2021 MCHC (RBC) [Mass/Vol] 32.1 g/dL 32-36 [facility] Work Phone: No Panel Informationon 12-21 Estimated Creatinine Clearance Calc 26.64 ml/min [facility] Work Phone: Estimated GFR (MDRD) Amer 53 mL/min >60 [facility] Work Phone: Comment on above: GFR Calc Estimated GFR (MDRD) Non-Af Amer 44 mL/min >60 [facility] Work Phone: Comment on above: Non- GFR Calc Platelets bldon 12-21-2021 Platelets (Bld) [#/Vol] 231 10*3/uL 150-450 [facility] Work Phone: Serum or plasma albumin pk urement (mass/volume)on 12-21-2021 Albumin [Mass/Vol] 3.3 g/dL 3.2-5.0 [facility] Work Phone: Serum or plasma albumin/glob ulin mass ratioon 12-21-2021 Albumin/Globulin [Mass ratio] 0.9 {ratio} 0.9-2.4 [facility] Work Phone: Serum or plasma calcium pk urement (mass/volume)on 12-21-2021 Calcium [Mass/Vol] 8.7 mg/dL 8.5-10.1 [facility] Work Phone: Serum or plasma creatinine m easurement (mass/volume)on 12-21-2021 Creatinine [Mass/Vol] 1.25 mg/dL 0.55-1.02 [facility] Work Phone: Comment on above: The validity of the calculated GFR & GFRAA in patients over 70 years has not been determined. Clinical correlation is essential. Serum or plasma urea nitroge n measurement (mass/volume)on 12-21-2021 Urea nitrogen [Mass/Vol] 15 mg/dL 7-18 [facility] Work Phone: Thin prep Papanicolaou smear with manual screeningon 12-21-2021 Thin prep Papanicolaou smear with manual screening 31 U/L 15-37 [facility] Work Phone: Comment on above: Slight Hemolysis, Re sult may be falsely increased. Thin prep Papanicolaou smear with manual screening 5 5-15 [facility] Work Phone: Thin prep Papanicolaou smear with manual screening 227 U/L 84-246 [facility] Work Phone: Comment on above: Slight Hemolysis, Re sult may be falsely increased. Laboratory - Coagulationon 01-23-2021 INR Coag (Bld) [Relative time] 2.5 {INR} [facility] Work Phone: Comment on above: Critical Value > 4.0 Whole blood prothrombin time on 11-22-2021 PT Coag (Bld) [Time] 28.1 s 11.9-14.4 [facility] Work Phone: Laboratory - Hematology and Cell countson 06-09-2019 Erythrocyte distribution width (RBC) [Ratio] 13.4 % 11.6-14.6 [facility] No Panel Informationon 06-09 Red Cell Distribution Width Diff 45.8 fl High 35.1-43.9 [facility] Total cell counton 9 Cells counted Molgen (Bld/Tiss) [#] Not Reportable [facility] Influenza virus A and B and SARS-CoV-2 (COVID-19) Ag panel - Upper respiratory specim SARS-CoV-2 (COVID-19) RNA CHRISTIANE+probe Ql (Resp) [facility] Work Phone: No Panel Information SARS-CoV-2 & FLU Antigen (Rapid) [facility] Work Phone: Vital Signs Date Time Vital Sign Value Performing Clinician Faci lity 08-16-2025 09:18-0400 Body height 147.[address] Daniel Lai MD Work Phone: [facility] 08-16-2025 09:18-0400 Diastolic blood pressure 70 mm[Hg] Dr. Daniel Lai MD Work Phone: [facility] 08-16-2025 09:18-0400 Heart rate 73 /min Dr. Daniel Lai MD Work Phone: [facility] 08-16-2025 09:18-0400 Systolic blood pressure 118 mm[Hg] Dr. Daniel Lai MD Work Phone: [facility] 06-07-2025 14:38-0400 Body height 147.[address] Daniel Lai MD Work Phone: [facility] 06-07-2025 14:36-0400 Body mass index (BMI) [Ratio] 41.1 kg/m2 Dr. Daniel Lai MD Work Phone: [facility] 06-07-2025 14:36-0400 Body weight 89.[address] Daniel Lai MD Work Phone: [facility] 06-07-2025 14:36-0400 Diastolic blood pressure 81 mm[Hg] Dr. Daniel Lai MD Work Phone: [facility] 06-07-2025 14:36-0400 Systolic blood pressure 116 mm[Hg] Dr. Daniel Lai MD Work Phone: [facility] 05-25-2025 22:33-0400 Body temperature 97.9 [degF] Dr. Daniel Lai MD Work Phone: [facility] 05-25-2025 22:33-0400 Diastolic blood pressure 65 mm[Hg] Dr. Daniel Lai MD Work Phone: [facility] 05-25-2025 22:33-0400 Heart rate 60 /min Dr. Daniel Lai MD Work Phone: [facility] 05-25-2025 22:33-0400 Respiratory rate 16 /min Dr. Daniel Lai MD Work Phone: [facility] 05-25-2025 22:33-0400 SaO2% (BldA) [Mass fraction] 92 % Dr. Daniel Lai MD Work Phone: [facility] 05-25-2025 22:33-0400 Systolic blood pressure 93 mm[Hg] Dr. Daniel Lai MD Work Phone: [facility] 05-25-2025 15:30-0400 Body temperature 98.4 [degF] Dr. Daniel Lai MD Work Phone: [facility] 05-25-2025 15:30-0400 Diastolic blood pressure 71 mm[Hg] Dr. Daniel Lai MD Work Phone: [facility] 05-25-2025 15:30-0400 Heart rate 54 /min Dr. Daniel Lai MD Work Phone: [facility] 05-25-2025 15:30-0400 Respiratory rate 16 /min Dr. Daniel Lai MD Work Phone: [facility] 05-25-2025 15:30-0400 SaO2% (BldA) [Mass fraction] 95 % Dr. Daniel Lai MD Work Phone: [facility] 05-25-2025 15:30-0400 Systolic blood pressure 124 mm[Hg] Dr. Daniel Lai MD Work Phone: [facility] 05-25-2025 12:03-0400 Body height 147.[address] Daniel Lai MD Work Phone: [facility] 05-25-2025 12:03-0400 Body mass index (BMI) [Ratio] 41.3 kg/m2 Dr. Daniel Lai MD Work Phone: [facility] 05-25-2025 12:03-0400 Body temperature 98.2 [degF] Dr. Daniel Lai MD Work Phone: 1(803)133-454307 [place] [address] 05-25-2025 12:03-0400 Body weight 89.[address] Daniel Lai MD Work Phone: 1(968)461-188454 [place] [address] 05-25-2025 12:03-0400 Diastolic blood pressure 85 mm[Hg] Dr. Daniel Lai MD Work Phone: 1(688)728-383207 [place] [address] 05-25-2025 12:03-0400 Heart rate 65 /min Dr. Daniel Lai MD Work Phone: 5(125)744-867407 [place] [address] 05-25-2025 12:03-0400 Respiratory rate 18 /min Dr. Daniel Lai MD Work Phone: [facility] 05-25-2025 12:03-0400 SaO2% (BldA) [Mass fraction] 96 % Dr. Daniel Lai MD Work Phone: [facility] 05-25-2025 12:03-0400 Systolic blood pressure 145 mm[Hg] Dr. Daniel Lai MD Work Phone: [facility] 05-18-2025 12:04-0400 Heart rate 74 /min Dr. Daniel Lai MD Work Phone: [facility] 05-18-2025 12:04-0400 SaO2% (BldA) [Mass fraction] 95 % Dr. Daniel Lai MD Work Phone: [facility] 05-18-2025 10:54-0400 Body height 147.[address] Daniel Lai MD Work Phone: 4(569)646-571607 [place] [address] 05-18-2025 10:54-0400 Body mass index (BMI) [Ratio] 40.7 kg/m2 Dr. Daniel Lai MD Work Phone: 4(387)611-314154 [place] [address] 05-18-2025 10:54-0400 Body weight 88.[address] Daniel Lai MD Work Phone: 8(077)094-785954 [place] [address] 05-18-2025 10:54-0400 Diastolic blood pressure 84 mm[Hg] Dr. Daniel Lai MD Work Phone: 1(741)969-902754 [place] [address] 05-18-2025 10:54-0400 Heart rate 65 /min Dr. Daniel Lai MD Work Phone: 5(497)135-205754 [place] [address] 05-18-2025 10:54-0400 Respiratory rate 18 /min Dr. Daniel Lai MD Work Phone: 6(069)882-968754 [place] [address] 05-18-2025 10:54-0400 Systolic blood pressure 138 mm[Hg] Dr. Daniel Lai MD Work Phone: 0(705)526-736054 [place] [address] 05-01-2025 18:09-0400 Body temperature 98.5 [degF] Dr. Daniel Lai MD Work Phone: 3(126)258-040254 [place] [address] 05-01-2025 18:09-0400 Diastolic blood pressure 76 mm[Hg] Dr. Daniel Lai MD Work Phone: 6(602)220-463407 [place] [address] 05-01-2025 18:09-0400 Heart rate 64 /min Dr. Daniel Lai MD Work Phone: 2(189)229-772807 [place] [address] 05-01-2025 18:09-0400 Respiratory rate 16 /min Dr. Daniel Lai MD Work Phone: 9(947)626-907554 [place] [address] 05-01-2025 18:09-0400 SaO2% (BldA) [Mass fraction] 96 % Dr. Daniel Lai MD Work Phone: 7(356)385-221054 [place] [address] 05-01-2025 18:09-0400 Systolic blood pressure 138 mm[Hg] Dr. Daniel Lai MD Work Phone: 0(189)651-187507 [place] [address] 05-01-2025 14:31-0400 Body height 147.[address] Daniel Lai MD Work Phone: 5(725)552-666154 [place] [address] 05-01-2025 14:31-0400 Body mass index (BMI) [Ratio] 40.3 kg/m2 Dr. Daniel Lai MD Work Phone: 6(882)942-749554 [place] [address] 05-01-2025 14:31-0400 Body weight 87.[address] Daniel Lai MD Work Phone: 3(143)807-595454 [place] [address] 04-30-2025 13:50-0400 Body height 147.[address] Daniel Lai MD Work Phone: 3(309)519-203954 [place] [address] 04-30-2025 13:50-0400 Body mass index (BMI) [Ratio] 41.1 kg/m2 Dr. Daniel Lai MD Work Phone: 4(565)547-183954 [place] [address] 04-30-2025 13:50-0400 Body weight 89.[address] Daniel Lai MD Work Phone: 5(363)754-830154 [place] [address] 04-30-2025 13:50-0400 Diastolic blood pressure 69 mm[Hg] Dr. Daniel Lai MD Work Phone: 3(392)392-411054 [place] [address] 04-30-2025 13:50-0400 Systolic blood pressure 101 mm[Hg] Dr. Daniel Lai MD Work Phone: 8(972)596-160254 [place] [address] 04-06-2025 08:35-0400 Body height 147.[address] Daniel Lai MD Work Phone: 1(955)088-940554 [place] [address] 04-06-2025 08:35-0400 Body mass index (BMI) [Ratio] 41.5 kg/m2 Dr. Daniel Lai MD Work Phone: 3(307)303-238054 [place] [address] 04-06-2025 08:35-0400 Body weight 90.[address] Daniel Lai MD Work Phone: [facility] 04-06-2025 08:35-0400 Diastolic blood pressure 71 mm[Hg] Dr. Daniel Lai MD Work Phone: 7(192)959-008954 [place] [address] 04-06-2025 08:35-0400 Systolic blood pressure 104 mm[Hg] Dr. Daniel Lai MD Work Phone: 5(837)441-945454 [place] [address] 03-22-2025 15:26-0400 Body temperature 97.6 [degF] Dr. Daniel Lai MD Work Phone: 1(528)061-154954 [place] [address] 03-22-2025 15:26-0400 Diastolic blood pressure 54 mm[Hg] Dr. Daniel Lai MD Work Phone: 6(909)220-170054 [place] [address] 03-22-2025 15:26-0400 Heart rate 66 /min Dr. Daniel Lai MD Work Phone: 9(342)711-760354 [place] [address] 03-22-2025 15:26-0400 Respiratory rate 16 /min Dr. Daniel Lai MD Work Phone: 7(675)491-871254 [place] [address] 03-22-2025 15:26-0400 SaO2% (BldA) [Mass fraction] 95 % Dr. Daniel Lai MD Work Phone: 1(519)067-966854 [place] [address] 03-22-2025 15:26-0400 Systolic blood pressure 112 mm[Hg] Dr. Daniel Lai MD Work Phone: 2(501)050-378254 [place] [address] 03-22-2025 14:34-0400 Body mass index (BMI) [Ratio] 38.9 kg/m2 Dr. Daniel Lai MD Work Phone: 9(728)399-137954 [place] [address] 03-22-2025 14:34-0400 Body weight 90.[address] Daniel Lai MD Work Phone: 9(917)330-167554 [place] [address] 03-22-2025 13:36-0400 Body mass index (BMI) [Ratio] 41.5 kg/m2 Dr. Daniel Lai MD Work Phone: 7(647)123-909754 [place] [address] 03-22-2025 13:36-0400 Body temperature 98.3 [degF] Dr. Daniel Lai MD Work Phone: [facility] 03-22-2025 13:36-0400 Body weight 90.[address] Daniel Lai MD Work Phone: [facility] 03-22-2025 13:36-0400 Diastolic blood pressure 80 mm[Hg] Dr. Daniel Lai MD Work Phone: 5(717)027-315907 [place] [address] 03-22-2025 13:36-0400 Heart rate 64 /min Dr. Daniel Lai MD Work Phone: 4(201)869-090807 [place] [address] 03-22-2025 13:36-0400 Respiratory rate 18 /min Dr. Daniel Lai MD Work Phone: 2(564)408-111248 [address] 03-22-2025 13:36-0400 SaO2% (BldA) [Mass fraction] 95 % Dr. Daniel Lai MD Work Phone: [facility] 03-22-2025 13:36-0400 Systolic blood pressure 137 mm[Hg] Dr. Daniel Lai MD Work Phone: [facility] 03-01-2025 23:08-0400 Body mass index (BMI) [Ratio] 43.7 kg/m2 Dr. Daniel Lai MD Work Phone: [facility] 02-26-2025 08:22-0400 Body mass index (BMI) [Ratio] 42 kg/m2 Dr. Daniel Lai MD Work Phone: [facility] 02-26-2025 08:22-0400 Body temperature 97.4 [degF] Dr. Daniel Lai MD Work Phone: [facility] 02-26-2025 08:22-0400 Body weight 91.[address] Daniel Lai MD Work Phone: [facility] 02-26-2025 08:22-0400 Diastolic blood pressure 72 mm[Hg] Dr. Daniel Lai MD Work Phone: [facility] 02-26-2025 08:22-0400 Heart rate 70 /min Dr. Daniel Lai MD Work Phone: [facility] 02-26-2025 08:22-0400 Respiratory rate 18 /min Dr. Daniel Lai MD Work Phone: [facility] 02-26-2025 08:22-0400 SaO2% (BldA) [Mass fraction] 95 % Dr. Daniel Lai MD Work Phone: [facility] 02-26-2025 08:22-0400 Systolic blood pressure 110 mm[Hg] Dr. Daniel Lai MD Work Phone: [facility] 11-01-2024 02:03-0500 Body mass index (BMI) [Ratio] 43.7 kg/m2 Dr. Daniel Lai MD Work Phone: [facility] 03-19-2024 14:36-0400 Body temperature 97.1 [degF] Dr. Daniel Lai Work Phone: [facility] 03-19-2024 14:36-0400 Diastolic blood pressure 74 mm[Hg] Dr. Daniel Lai Work Phone: [facility] 03-19-2024 14:36-0400 Heart rate 64 /min Dr. Daniel Lai Work Phone: [facility] 03-19-2024 14:36-0400 Respiratory rate 16 /min Dr. Daniel Lai Work Phone: [facility] 03-19-2024 14:36-0400 SaO2% (BldA) [Mass fraction] 96 % Dr. Daniel Lai Work Phone: [facility] 03-19-2024 14:36-0400 Systolic blood pressure 141 mm[Hg] Dr. Daniel Lai Work Phone: [facility] 03-19-2024 14:07-0400 Body mass index (BMI) [Ratio] 41.3 kg/m2 Dr. Daniel Lai Work Phone: [facility] 03-19-2024 14:07-0400 Body weight 95.[address] Daniel Lai Work Phone: [facility] 03-16-2024 11:32-0400 Body mass index (BMI) [Ratio] 44.1 kg/m2 Dr. Daniel Lai Work Phone: [facility] 03-16-2024 11:32-0400 Body temperature 98.4 [degF] Dr. Daniel Lai Work Phone: [facility] 03-16-2024 11:32-0400 Body weight 95.[address] Daniel Lai Work Phone: [facility] 03-16-2024 11:32-0400 Diastolic blood pressure 81 mm[Hg] Dr. Daniel Lai Work Phone: [facility] 03-16-2024 11:32-0400 Heart rate 70 /min Dr. Daniel Lai Work Phone: [facility] 03-16-2024 11:32-0400 Respiratory rate 18 /min Dr. Daniel Lai Work Phone: [facility] 03-16-2024 11:32-0400 SaO2% (BldA) [Mass fraction] 96 % Dr. Daniel Lai Work Phone: [facility] 03-16-2024 11:32-0400 Systolic blood pressure 129 mm[Hg] Dr. Daniel Lai Work Phone: [facility] 12-01-2023 23:27-0500 Body mass index (BMI) [Ratio] 43.7 kg/m2 Dr. Daniel Lai Work Phone: [facility] 10-18-2023 09:55-0500 Body height 147.[address] J Luis Lai Work Phone: [facility] 10-18-2023 09:55-0500 Body mass index (BMI) [Ratio] 46.1 kg/m2 Dr. J Luis Lai Work Phone: [facility] 10-18-2023 09:55-0500 Body weight 100.[address] J Luis Lai Work Phone: [facility] 10-18-2023 09:55-0500 Diastolic blood pressure 73 mm[Hg] Dr. J Luis Lai Work Phone: [facility] 10-18-2023 09:55-0500 Heart rate 84 /min Dr. J Luis Lai Work Phone: 7(906)430-962048 [address] 10-18-2023 09:55-0500 Respiratory rate 20 /min Dr. J Luis Lai Work Phone: 7(557)965-735948 [address] 10-18-2023 09:55-0500 SaO2% (BldA) [Mass fraction] 96 % Dr. J Luis Lai Work Phone: [facility] 10-18-2023 09:55-0500 Systolic blood pressure 120 mm[Hg] Dr. J Luis Lai Work Phone: [facility] 10-01-2023 23:05-0400 Body mass index (BMI) [Ratio] 43.7 kg/m2 Dr. J Luis Lai Work Phone: [facility] 09-26-2023 08:33-0400 Body height 147.[address] J Luis Lai Work Phone: 5(713)557-020948 [address] 09-26-2023 08:33-0400 Body mass index (BMI) [Ratio] 45.2 kg/m2 Dr. J Luis Lai Work Phone: [facility] 09-26-2023 08:33-0400 Body temperature 98.1 [degF] Dr. J Luis Lai Work Phone: 7(217)901-213707 [place] [address] 09-26-2023 08:33-0400 Body weight 98.[address] J Luis Lai Work Phone: [facility] 09-26-2023 08:33-0400 Diastolic blood pressure 73 mm[Hg] Dr. J Luis Lai Work Phone: [facility] 09-26-2023 08:33-0400 Heart rate 79 /min Dr. J Luis Lai Work Phone: [facility] 09-26-2023 08:33-0400 Respiratory rate 17 /min Dr. J Luis Lai Work Phone: [facility] 09-26-2023 08:33-0400 SaO2% (BldA) [Mass fraction] 95 % Dr. J Luis Lai Work Phone: [facility] 09-26-2023 08:33-0400 Systolic blood pressure 147 mm[Hg] Dr. J Luis Lai Work Phone: [facility] 09-01-2023 04:55-0400 Body mass index (BMI) [Ratio] 43.7 kg/m2 Dr. J Luis Lai Work Phone: [facility] 08-20-2023 11:08-0400 Body height 152.4 cm [facility] 08-20-2023 11:08-0400 Body mass index (BMI) [Ratio] 42 kg/m2 [facility] 08-20-2023 11:08-0400 Body weight 97.52 kg [facility] 08-02-2023 01:20-0400 Body mass index (BMI) [Ratio] 43.7 kg/m2 [facility] 06-01-2023 02:17-0400 Body mass index (BMI) [Ratio] 43.7 kg/m2 Dr. J Luis Lai Work Phone: [facility] 05-02-2023 08:00-0400 Body mass index (BMI) [Ratio] 43.7 kg/m2 Dr. J Luis Lai Work Phone: [facility] 04-18-2023 05:51-0400 Body height 147.[address] J Luis Lai Work Phone: 7(246)879-325207 [place] [address] 04-18-2023 05:51-0400 Body mass index (BMI) [Ratio] 44.9 kg/m2 Dr. J Luis Lai Work Phone: 9(365)330-547854 [place] [address] 04-18-2023 05:51-0400 Body temperature 98.2 [degF] Dr. J Luis Lai Work Phone: 5(346)294-570054 [place] [address] 04-18-2023 05:51-0400 Body weight 97.[address] J Luis Lai Work Phone: 1(827)420-521854 [place] [address] 04-18-2023 05:51-0400 Diastolic blood pressure 83 mm[Hg] Dr. J Luis Lai Work Phone: 6(548)443-271754 [place] [address] 04-18-2023 05:51-0400 Heart rate 71 /min Dr. J Luis Lai Work Phone: 7(829)568-233354 [place] [address] 04-18-2023 05:51-0400 Inhaled oxygen flow rate 2 L/min Dr. J Luis Lai Work Phone: 4(041)822-271754 [place] [address] 04-18-2023 05:51-0400 Respiratory rate 18 /min Dr. J Luis Lai Work Phone: 9(284)929-978254 [place] [address] 04-18-2023 05:51-0400 SaO2% (BldA) [Mass fraction] 98 % Dr. J Luis Lai Work Phone: 9(707)200-633448 [address] 04-18-2023 05:51-0400 Systolic blood pressure 150 mm[Hg] Dr. J Luis Lai Work Phone: 9(724)629-237254 [place] [address] 04-16-2023 10:40-0400 Body mass index (BMI) [Ratio] 45.6 kg/m2 Dr. J Luis Lai Work Phone: 8(312)598-376307 [place] [address] 04-16-2023 10:40-0400 Body weight 98.[address] J Luis Lai Work Phone: 9(118)185-448848 [address] 04-16-2023 10:40-0400 Diastolic blood pressure 89 mm[Hg] Dr. J Luis Lai Work Phone: [facility] 04-16-2023 10:40-0400 Heart rate 73 /min Dr. J Luis Lai Work Phone: [facility] 04-16-2023 10:40-0400 Respiratory rate 18 /min Dr. J Luis Lai Work Phone: [facility] 04-16-2023 10:40-0400 SaO2% (BldA) [Mass fraction] 97 % Dr. J Luis Lai Work Phone: [facility] 04-16-2023 10:40-0400 Systolic blood pressure 136 mm[Hg] Dr. J Luis Lai Work Phone: [facility] 11-01-2022 02:19-0500 Body mass index (BMI) [Ratio] 43.7 kg/m2 Dr. J Luis Lai Work Phone: [facility] 09-17-2022 09:58-0400 Body height 147.[address] J Luis Lai Work Phone: [facility] Work Phone: 09-17-2022 09:58-0400 Body mass index (BMI) [Ratio] 45.3 kg/m2 Dr. J Luis Lai Work Phone: [facility] Work Phone: 09-17-2022 09:58-0400 Body temperature 97 [degF] Dr. J Luis Lai Work Phone: [facility] Work Phone: 09-17-2022 09:58-0400 Body weight 98.[address] J Luis Lai Work Phone: [facility] Work Phone: 09-17-2022 09:58-0400 Diastolic blood pressure 86 mm[Hg] Dr. J Luis Lai Work Phone: [facility] Work Phone: 09-17-2022 09:58-0400 Heart rate 72 /min Dr. J Luis Lai Work Phone: [facility] Work Phone: 09-17-2022 09:58-0400 Respiratory rate 18 /min Dr. J Luis Lai Work Phone: [facility] Work Phone: 09-17-2022 09:58-0400 SaO2% (BldA) [Mass fraction] 96 % Dr. J Lius Lai Work Phone: [facility] Work Phone: 09-17-2022 09:58-0400 Systolic blood pressure 122 mm[Hg] Dr. J Luis Lai Work Phone: [facility] Work Phone: 09-07-2022 19:19-0400 Diastolic blood pressure 81 mm[Hg] Dr. J Luis Lai Work Phone: [facility] Work Phone: 09-07-2022 19:19-0400 Heart rate 62 /min Dr. J Luis Lai Work Phone: [facility] Work Phone: 09-07-2022 19:19-0400 Respiratory rate 14 /min Dr. J Luis Lai Work Phone: [facility] Work Phone: 09-07-2022 19:19-0400 SaO2% (BldA) [Mass fraction] 96 % Dr. J Luis Lai Work Phone: [facility] Work Phone: 09-07-2022 19:19-0400 Systolic blood pressure 154 mm[Hg] Dr. J Luis Lai Work Phone: [facility] Work Phone: 09-07-2022 16:32-0400 Body temperature 96.5 [degF] Dr. J Luis Lai Work Phone: [facility] Work Phone: 09-07-2022 16:28-0400 Body height 147.[address] J Luis Lai Work Phone: [facility] Work Phone: 09-07-2022 16:28-0400 Body mass index (BMI) [Ratio] 45.1 kg/m2 Dr. J Luis Lai Work Phone: [facility] Work Phone: 09-07-2022 16:28-0400 Body weight 97.[address] J Luis Lai Work Phone: [facility] Work Phone: 08-14-2022 08:50-0400 Body mass index (BMI) [Ratio] 43 kg/m2 Dr. J Luis Lai Work Phone: [facility] Work Phone: 08-14-2022 08:50-0400 Body weight 96.[address] J Luis Lai Work Phone: [facility] Work Phone: 08-14-2022 08:50-0400 Diastolic blood pressure 85 mm[Hg] Dr. J Luis Lai Work Phone: [facility] Work Phone: 08-14-2022 08:50-0400 Heart rate 78 /min Dr. J Luis Lai Work Phone: [facility] Work Phone: 08-14-2022 08:50-0400 Respiratory rate 16 /min Dr. J Luis Lai Work Phone: [facility] Work Phone: 08-14-2022 08:50-0400 SaO2% (BldA) [Mass fraction] 96 % Dr. J Luis Lai Work Phone: [facility] Work Phone: 08-14-2022 08:50-0400 Systolic blood pressure 143 mm[Hg] Dr. J Luis Lai Work Phone: [facility] Work Phone: 08-02-2022 00:56-0400 Body mass index (BMI) [Ratio] 43.7 kg/m2 Dr. J Luis Lai Work Phone: [facility] Work Phone: 07-23-2022 06:26-0400 Body height 149.[address] J Luis Lai Work Phone: [facility] Work Phone: 07-23-2022 06:26-0400 Body mass index (BMI) [Ratio] 43 kg/m2 Dr. J Luis Lai Work Phone: [facility] Work Phone: 07-23-2022 06:26-0400 Body temperature 97.3 [degF] Dr. J Luis Lai Work Phone: [facility] Work Phone: 07-23-2022 06:26-0400 Body weight 96.[address] J Luis Lai Work Phone: [facility] Work Phone: 07-23-2022 06:26-0400 Diastolic blood pressure 75 mm[Hg] Dr. J Luis Lai Work Phone: [facility] Work Phone: 07-23-2022 06:26-0400 Heart rate 71 /min Dr. J Luis Lai Work Phone: [facility] Work Phone: 07-23-2022 06:26-0400 Respiratory rate 18 /min Dr. J Luis Lai Work Phone: [facility] Work Phone: 07-23-2022 06:26-0400 SaO2% (BldA) [Mass fraction] 99 % Dr. J Luis Lai Work Phone: [facility] Work Phone: 07-23-2022 06:26-0400 Systolic blood pressure 134 mm[Hg] Dr. J Luis Lai Work Phone: [facility] Work Phone: 07-01-2022 03:22-0400 Body mass index (BMI) [Ratio] 43.7 kg/m2 Dr. J Luis Lai Work Phone: [facility] Work Phone: 06-20-2022 11:22-0400 Body height 149.[address] J Luis Lai Work Phone: [facility] Work Phone: 06-20-2022 11:16-0400 Body mass index (BMI) [Ratio] 43.2 kg/m2 Dr. J Luis Lai Work Phone: [facility] Work Phone: 06-20-2022 11:16-0400 Body temperature 98.4 [degF] Dr. J Luis Lai Work Phone: [facility] Work Phone: 06-20-2022 11:16-0400 Body weight 97.[address] J Luis Lai Work Phone: [facility] Work Phone: 06-20-2022 11:16-0400 Diastolic blood pressure 87 mm[Hg] Dr. J Luis Lai Work Phone: [facility] Work Phone: 06-20-2022 11:16-0400 Heart rate 68 /min Dr. J Luis Lai Work Phone: [facility] Work Phone: 06-20-2022 11:16-0400 Respiratory rate 15 /min Dr. J Luis Lai Work Phone: [facility] Work Phone: 06-20-2022 11:16-0400 SaO2% (BldA) [Mass fraction] 97 % Dr. J Luis Lai Work Phone: [facility] Work Phone: 06-20-2022 11:16-0400 Systolic blood pressure 164 mm[Hg] Dr. J Luis Lai Work Phone: [facility] Work Phone: 05-10-2022 11:36-0400 Body height 149.[address] J Luis Lai Work Phone: [facility] Work Phone: 05-10-2022 11:36-0400 Body weight 92.[address] J Luis Lai Work Phone: [facility] Work Phone: 05-10-2022 11:36-0400 Heart rate 74 /min Dr. J Luis Lai Work Phone: [facility] Work Phone: 05-10-2022 11:36-0400 SaO2% (BldA) [Mass fraction] 95 % Dr. J Luis Lai Work Phone: [facility] Work Phone: 05-01-2022 21:41-0400 Body mass index (BMI) [Ratio] 43.7 kg/m2 Dr. J Luis Lai Work Phone: [facility] Work Phone: 04-24-2022 12:32-0400 Body mass index (BMI) [Ratio] 42.6 kg/m2 Dr. J Luis Lai Work Phone: [facility] Work Phone: 04-24-2022 12:32-0400 Body temperature 97.8 [degF] Dr. J Luis Lai Work Phone: [facility] Work Phone: 04-24-2022 12:32-0400 Body weight 95.[address] J Luis Lai Work Phone: [facility] Work Phone: 04-24-2022 12:32-0400 Diastolic blood pressure 84 mm[Hg] Dr. J Luis Lai Work Phone: [facility] Work Phone: 04-24-2022 12:32-0400 Heart rate 75 /min Dr. J Luis Lai Work Phone: [facility] Work Phone: 04-24-2022 12:32-0400 Respiratory rate 17 /min Dr. J Luis Lai Work Phone: [facility] Work Phone: 04-24-2022 12:32-0400 SaO2% (BldA) [Mass fraction] 97 % Dr. J Luis Lai Work Phone: [facility] Work Phone: 04-24-2022 12:32-0400 Systolic blood pressure 138 mm[Hg] Dr. J Luis Lai Work Phone: [facility] Work Phone: 04-24-2022 12:32-0400 Body height 149.[address] J Luis Lai Work Phone: [facility] Work Phone: 04-24-2022 12:32-0400 Body mass index (BMI) [Ratio] 42.6 kg/m2 Dr. J Luis Lai Work Phone: [facility] Work Phone: 04-24-2022 12:32-0400 Body temperature 97.8 [degF] Dr. J Luis Lai Work Phone: [facility] Work Phone: 04-24-2022 12:32-0400 Body weight 95.[address] J Luis Lai Work Phone: [facility] Work Phone: 04-24-2022 12:32-0400 Diastolic blood pressure 84 mm[Hg] Dr. J Luis Lai Work Phone: [facility] Work Phone: 04-24-2022 12:32-0400 Heart rate 75 /min Dr. J Luis Lai Work Phone: [facility] Work Phone: 04-24-2022 12:32-0400 Respiratory rate 17 /min Dr. J Luis Lai Work Phone: [facility] Work Phone: 04-24-2022 12:32-0400 SaO2% (BldA) [Mass fraction] 97 % Dr. J Luis Lai Work Phone: [facility] Work Phone: 04-24-2022 12:32-0400 Systolic blood pressure 138 mm[Hg] Dr. J Luis Lai Work Phone: [facility] Work Phone: 04-01-2022 05:23-0400 Body mass index (BMI) [Ratio] 43.7 kg/m2 Dr. J Luis Lai Work Phone: [facility] Work Phone: 03-07-2022 13:14-0400 Body temperature 98.24 [degF] DR SANTHOSH MCMANUS MD [facility] 03-07-2022 13:14-0400 Diastolic blood pressure 74 mm[Hg] DR SANTHOSH MCMANUS MD [facility] 03-07-2022 13:14-0400 Heart rate 70 /min DR SANTHOSH MCMANUS MD [facility] 03-07-2022 13:14-0400 Respiratory rate 18 /min DR SANTHOSH MCMANUS MD [facility] 03-07-2022 13:14-0400 Systolic blood pressure 128 mm[Hg] DR SANTHOSH MCMANUS MD [facility] 03-07-2022 07:57-0400 Body temperature 97.88 [degF] DR SANTHOSH MCMANUS MD [facility] 03-07-2022 07:57-0400 Diastolic blood pressure 72 mm[Hg] DR SANTHOSH MCMANUS MD [facility] 03-07-2022 07:57-0400 Heart rate 72 /min DR SANTHOSH MCMANUS MD [facility] 03-07-2022 07:57-0400 Reason For Taking VItal Signs DR SANTHOSH MCMANUS MD [facility] 03-07-2022 07:57-0400 Respiratory rate 16 /min DR SANTHOSH MCMANUS MD [facility] 03-07-2022 07:57-0400 Systolic blood pressure 137 mm[Hg] DR SANTHOSH MCMANUS MD [facility] 03-07-2022 07:51-0400 Heart rate 68 /min DR SANTHOSH MCMANUS MD [facility] 03-07-2022 03:28-0400 Body temperature 97.34 [degF] DR SANTHOSH MCMANUS MD [facility] 03-07-2022 03:28-0400 Diastolic blood pressure 75 mm[Hg] DR SANTHOSH MCMANUS MD [facility] 03-07-2022 03:28-0400 Heart rate 68 /min DR SANTHOSH MCMANUS MD [facility] 03-07-2022 03:28-0400 Mean blood pressure 91 mm[Hg] DR SANTHOSH MCMANUS MD [facility] 03-07-2022 03:28-0400 Reason For Taking VItal Signs DR SANTHOSH MCMANUS MD [facility] 03-07-2022 03:28-0400 Respiratory rate 14 /min DR SANTHOSH MCMANUS MD [facility] 03-07-2022 03:28-0400 Systolic blood pressure 122 mm[Hg] DR SANTHOSH MCMANUS MD [facility] 03-07-2022 00:19-0400 Diastolic Blood Pressure NBP [address] SANTHOSH MCMANUS MD [facility] 03-07-2022 00:19-0400 Heart rate 86 /min DR SANTHOSH MCMANUS MD [facility] 03-07-2022 00:19-0400 Reason For Taking VItal Signs DR SANTHOSH MCMANUS MD [facility] 03-07-2022 00:19-0400 Systolic Blood Pressure NBP [address] SANTHOSH MCMANUS MD [facility] 03-06-2022 20:12-0400 Diastolic Blood Pressure NBP [address] SANTHOSH MCMANUS MD [facility] 03-06-2022 20:12-0400 Heart rate 89 /min DR SANTHOSH MCMANUS MD [facility] 03-06-2022 20:12-0400 Systolic Blood Pressure NBP [address] SANTHOSH MCMANUS MD [facility] 03-06-2022 15:45-0400 Diastolic Blood Pressure NBP [address] SANTHOSH MCMANUS MD [facility] 03-06-2022 15:45-0400 Heart rate 76 /min DR SANTHOSH MCMANUS MD [facility] 03-06-2022 15:45-0400 Systolic Blood Pressure NBP [address] SANTHOSH MCMANUS MD [facility] 03-06-2022 12:09-0400 Body height 149.[address] SANTHOSH MCMANUS MD [facility] 03-06-2022 12:09-0400 Body weight 97.[address] SANTHOSH MCMANUS MD [facility] 03-06-2022 12:09-0400 Body weight 43.48 kg/m2 DR SANTHOSH MCMANUS MD [facility] 03-06-2022 10:00-0400 Body temperature 96.62 [degF] DR SANTHOSH MCMANUS MD [facility] 03-06-2022 06:55-0400 Body height 149.[address] SANTHOSH MCMANUS MD [facility] 03-06-2022 06:55-0400 Body temperature 97.88 [degF] DR SANTHOSH MCMANUS MD [facility] 03-06-2022 06:55-0400 Body weight [address] SANTHOSH MCMANUS MD [facility] 03-06-2022 06:55-0400 Heart rate 80 /min DR SANTHOSH MCMANUS MD [facility] 03-02-2022 02:54-0400 Body mass index (BMI) [Ratio] 43.7 kg/m2 Dr. J Luis Lai Work Phone: [facility] Work Phone: 02-19-2022 10:35-0400 Body height 149.[address] SANTHOSH MCMANUS MD [facility] 02-19-2022 10:35-0400 Body weight 97.[address] SANTHOSH MCMANUS MD [facility] 02-19-2022 10:35-0400 Body weight 43.48 kg/m2 DR SANTHOSH MCMANUS MD [facility] 02-19-2022 10:35-0400 diastolic 78 mm[Hg] DR SANTHOSH MCMANUS MD [facility] 02-19-2022 10:35-0400 Heart rate 64 /min DR SANTHOSH MCMANUS MD [facility] 02-19-2022 10:35-0400 Respiratory rate 18 /min DR SANTHOSH MCMANUS MD [facility] 02-19-2022 10:35-0400 systolic 122 mm[Hg] DR SANTHOSH MCMANUS MD [facility] 02-07-2022 15:01-0500 Diastolic blood pressure 93 mm[Hg] Dr. J Luis Lai Work Phone: [facility] Work Phone: 02-07-2022 15:01-0500 Systolic blood pressure 154 mm[Hg] Dr. J Luis Lai Work Phone: [facility] Work Phone: 02-07-2022 14:01-0500 Diastolic blood pressure 93 mm[Hg] Dr. J Luis Lai Work Phone: [facility] Work Phone: 02-07-2022 14:01-0500 Systolic blood pressure 154 mm[Hg] Dr. J Luis Lai Work Phone: [facility] Work Phone: 02-07-2022 13:52-0500 Body mass index (BMI) [Ratio] 43.6 kg/m2 Dr. J Luis Lai Work Phone: [facility] Work Phone: 02-07-2022 13:52-0500 Body weight 97.[address] J Luis Lai Work Phone: [facility] Work Phone: 02-07-2022 13:52-0500 Heart rate 78 /min Dr. J Luis Lai Work Phone: [facility] Work Phone: 02-07-2022 13:52-0500 Respiratory rate 18 /min Dr. J Luis Lai Work Phone: [facility] Work Phone: 02-07-2022 13:52-0500 SaO2% (BldA) [Mass fraction] 96 % Dr. J Luis Lai Work Phone: [facility] Work Phone: 02-07-2022 12:52-0500 Body height 149.[address] J Luis Lai Work Phone: [facility] Work Phone: 02-07-2022 12:52-0500 Body mass index (BMI) [Ratio] 43.6 kg/m2 Dr. J Luis Lai Work Phone: [facility] Work Phone: 02-07-2022 12:52-0500 Body weight 97.[address] J Luis Lai Work Phone: [facility] Work Phone: 02-07-2022 12:52-0500 Heart rate 78 /min Dr. J Luis Lai Work Phone: [facility] Work Phone: 02-07-2022 12:52-0500 Respiratory rate 18 /min Dr. J Luis Lai Work Phone: [facility] Work Phone: 02-07-2022 12:52-0500 SaO2% (BldA) [Mass fraction] 96 % Dr. J Luis Lai Work Phone: [facility] Work Phone: 01-30-2022 10:16-0500 Body mass index (BMI) [Ratio] 43.7 kg/m2 Dr. J Luis Lai Work Phone: [facility] Work Phone: 01-30-2022 09:16-0500 Body mass index (BMI) [Ratio] 43.7 kg/m2 Dr. J Luis Lai Work Phone: [facility] Work Phone: 12-21-2021 09:52-0500 Body mass index (BMI) [Ratio] 41.8 kg/m2 Dr. J Luis Lai Work Phone: [facility] Work Phone: 12-21-2021 09:52-0500 Body temperature 98.3 [degF] Dr. J Luis Lai Work Phone: [facility] Work Phone: 12-21-2021 09:52-0500 Body weight 94.[address] J Luis Lai Work Phone: [facility] Work Phone: 12-21-2021 09:52-0500 Diastolic blood pressure 87 mm[Hg] Dr. J Luis Lai Work Phone: [facility] Work Phone: 12-21-2021 09:52-0500 Heart rate 76 /min Dr. J Luis Lai Work Phone: [facility] Work Phone: 12-21-2021 09:52-0500 Respiratory rate 15 /min Dr. J Luis Lai Work Phone: [facility] Work Phone: 12-21-2021 09:52-0500 Systolic blood pressure 134 mm[Hg] Dr. J Luis Lai Work Phone: [facility] Work Phone: 12-03-2021 18:17-0500 Body mass index (BMI) [Ratio] 43.7 kg/m2 Dr. J Luis Lai Work Phone: [facility] Work Phone: 12-03-2021 17:17-0500 Body mass index (BMI) [Ratio] 43.7 kg/m2 Dr. J Luis Lai Work Phone: [facility] Work Phone: 11-01-2021 03:04-0500 Body mass index (BMI) [Ratio] 43.7 kg/m2 Dr. J Luis Lai Work Phone: [facility] Work Phone: 01-24-2021 11:05-0500 Body temperature 98.4 [degF] [facility] 01-24-2021 11:05-0500 Diastolic blood pressure 83 mm[Hg] [facility] 01-24-2021 11:05-0500 Heart rate 81 /min [facility] 01-24-2021 11:05-0500 Respiratory rate 14 /min [facility] 01-24-2021 11:05-0500 SaO2% (BldA) [Mass fraction] 98 % [facility] 01-24-2021 11:05-0500 Systolic blood pressure 139 mm[Hg] [facility] 01-24-2021 10:05-0500 Body temperature 98.4 [degF] Dr. J Luis Lai Work Phone: [facility] Work Phone: 01-24-2021 10:05-0500 Body weight 102.[address] J Luis Lai Work Phone: [facility] Work Phone: 01-24-2021 10:05-0500 Diastolic blood pressure 83 mm[Hg] Dr. J Luis Lai Work Phone: [facility] Work Phone: 01-24-2021 10:05-0500 Heart rate 81 /min Dr. J Luis Lai Work Phone: [facility] Work Phone: 01-24-2021 10:05-0500 Respiratory rate 14 /min Dr. J Luis Lai Work Phone: [facility] Work Phone: 01-24-2021 10:05-0500 SaO2% (BldA) [Mass fraction] 98 % Dr. J Luis Lai Work Phone: [facility] Work Phone: 01-24-2021 10:05-0500 Systolic blood pressure 139 mm[Hg] Dr. J Luis Lai Work Phone: [facility] Work Phone: 01-19-2021 11:15-0500 Body mass index (BMI) [Ratio] 41 kg/m2 Dr. J Luis Lai Work Phone: [facility] Work Phone: Encounters Encounter Date Encounter Type Care Provider Facility Start: 08-24-2025 ambulatory Joanna Saavedra NP Facil ity:[facility] Start: 08-16-2025 End: 08-16-[address] Jessy Wade MD -[facility] Work Phone: Start: 08-16-2025 End: 08-16-[address] Daniel Lai MD Work Phone: -[facility] Start: 08-04-[address] Juni Epstein MD -[facility] Work Phone: Start: 06-25-2025 End: 07-02-[address] Juni Epstein MD -[facility] Work Phone: Start: 06-25-2025 End: 07-02-[address] Daniel Lai MD Work Phone: [facility] Start: 06-24-2025 [facility] Start: 06-07-2025 End: 06-07-[address] Senait Dick DO [facility] Work Phone: Start: 06-07-2025 End: 06-07-[address] Daniel Lai MD Work Phone: [facility] Start: 06-01-2025 Non-patient / Non-visit Dr. Jessy hillman MD -[facility] Work Phone: Start: 05-25-2025 ambulatory Daniel Thibodeaux lity:[facility] Start: 05-25-2025 Non-patient / Non-visit Dr. eNal Dick DO [facility] Start: 05-25-2025 End: 05-25-2025 Admission to same day surgery center [facility] Work Phone: Start: 05-25-2025 End: 05-25-[address] Daniel Lai MD Work Phone: [facility] Work Phone: Start: 05-21-2025 ambulatory Daniel Lai Faci lity:[facility] Start: 05-21-2025 Non-patient / Non-visit Dr. Mauro trinidad DO -[facility] Start: 05-18-2025 End: 05-18-2025 Patient encounter procedure Luanne Bautista PA -[facility] Work Phone: Start: 05-18-2025 End: 05-18-[address] Daniel Lai MD Work Phone: [facility] Work Phone: Start: 05-18-2025 End: 05-18-2025 ambulatory Daniel Lai Facility:[facility] Start: 05-01-2025 End: 05-01-2025 Emergency department patient visit Dr. Daniel Lai MD Work Phone: -Emergency Department Work Phone: Start: 04-30-2025 End: 04-30-[address] Senait Dick DO -[facility] Work Phone: Start: 04-30-2025 End: 04-30-[address] Daniel Lai MD Work Phone: [facility] Work Phone: Start: 04-29-2025 End: 04-29-2025 ambulatory Daniel Lai Facility:[facility] Start: 04-29-2025 End: 04-29-2025 Non-patient / Non-visit Dr. Holger Del Valle MD -[facility] Work Phone: Start: 04-06-2025 End: 04-06-[address] Daniel Lai MD Work Phone: [facility] Work Phone: Start: 04-06-2025 End: 04-06-[address] Daniel Lai MD -Physical Therapy Work Phone: Start: 04-06-2025 End: 04-06-[address] Senait Dick DO -[facility] Work Phone: Start: 04-06-2025 End: 04-06-2025 ambulatory Daniel Lai Facility:[facility] Start: 03-26-2025 [facility] Start: 03-26-2025 Non-patient / Non-visit Dr. Lenka BERRIOS -[facility] Start: 03-26-2025 End: 03-26-[address] Juni Epstein MD -Cardiovascular Services Work Phone: Start: 03-26-2025 End: 03-26-2025 ambulatory [facility] Facility:[facility] Start: 03-22-[address] Josue Leal MD -[facility] Start: 03-22-2025 End: 03-22-[address] Josue Leal MD -[facility] Work Phone: Start: 03-22-2025 End: 03-22-2025 ambulatory Daniel Lai Facility:[facility] Start: 02-26-2025 End: 02-26-2025 Patient encounter procedure Brandie MARTINEZ -[facility] Work Phone: Start: 02-26-2025 End: 02-26-2025 ambulatory Daniel Lai Facility:[facility] Start: 02-24-2025 End: 02-24-[address] Juni Epstein MD -Laboratory, [facility] Work Phone: Start: 02-24-2025 End: 02-24-[address] Daniel Lai MD Work Phone: [facility] Work Phone: Start: 01-14-2025 ambulatory Daniel Lai Faci lity:[facility] Start: 01-14-2025 Non-patient / Non-visit Dr. Garima Lai MD -[facility] Work Phone: Start: 12-17-2024 ambulatory Daniel Lai Faci lity:[facility] Start: 12-17-2024 Non-patient / Non-visit Dr. Garima Lai MD -[facility] Work Phone: Start: 11-30-2024 ambulatory Daniel Lai Faci lity:[facility] Start: 11-30-2024 Non-patient / Non-visit Dr. Garima Lai MD -[facility] Work Phone: Start: 11-26-2024 ambulatory Daniel Lai Faci lity:[facility] Start: 11-26-2024 Non-patient / Non-visit Dr. Garima Lai MD -[facility] Work Phone: Start: 10-26-2024 End: 10-31-2024 ambulatory Juni Epstein Facility:[facility] Start: 10-20-2024 End: 10-20-2024 ambulatory Daniel Lai Facility:[facility] Start: 10-20-2024 End: 10-20-2024 ambulatory Daniel Lai Facility:[facility] Start: 10-15-2024 End: 10-15-2024 ambulatory Daniel Lai Facility:[facility] Start: 09-14-2024 End: 09-14-2024 ambulatory Daniel Lai Facility:[facility] Start: 08-31-2024 End: 08-31-2024 ambulatory Joanna Saavedra NP Facility:[facility] Start: 03-27-2024 End: 03-31-[address] Daniel Lai Work Phone: [facility] Work Phone: Start: 03-27-2024 End: 03-31-[address] Daniel Lai Work Phone: [facility] Work Phone: Start: 03-19-[address] Arsalan Lai Work Phone: [facility] Start: 03-16-2024 End: 03-16-[address] Daniel Lai Work Phone: [facility] Work Phone: Start: 01-16-2024 Non-patient / Non-visit Dr. Garima Lai Work Phone: [facility] Work Phone: Start: 12-19-2023 Non-patient / Non-visit Dr. Garima Lai Work Phone: [facility] Work Phone: Start: 10-21-2023 End: 10-21-[address] J Luis Lai Work Phone: [facility] Work Phone: Start: 10-21-2023 End: 10-21-[address] J Luis [facility] Work Phone: Start: 10-18-2023 End: 10-18-[address] J Luis Lai Work Phone: [facility] Work Phone: Start: 10-09-2023 End: 10-31-[address] J Luis Lai Work Phone: [facility] Work Phone: Start: 10-09-2023 End: 10-31-[address] J Luis Lai Work Phone: [facility] Work Phone: Start: 10-09-[address] Arsalan Lai Work Phone: [facility] Work Phone: Start: 09-26-2023 End: 09-26-[address] J Luis Lai Work Phone: [facility] [place] Work Phone: Start: 09-23-2023 Non-patient / Non-visit Dr. Garima Lai Work Phone: [facility] Start: 09-23-2023 End: 09-23-[address] J Luis Lai Work Phone: [facility] Work Phone: Start: 09-23-2023 End: 09-23-[address] J Luis Lia Work Phone: [facility]-Cardiovascula r Services Work Phone: Start: 09-11-2023 End: 09-11-[address] J Luis Lai Work Phone: [facility] Work Phone: Start: 09-11-2023 End: 09-11-[address] J Luis Lai Work Phone: [facility] Work Phone: Start: 09-11-[address] Arsalan Lai Work Phone: [facility] Work Phone: Start: 08-22-2023 End: 08-22-2023 ambulatory [facility] Work Phone: Start: 08-22-2023 End: 08-22-2023 Patient encounter procedure [facility]-Outpatient Breast Imaging Work Phone: Start: 08-20-2023 Registered Recurring [facility] Start: 08-19-2023 End: 08-19-2023 ambulatory [facility] Work Phone: Start: 08-19-2023 End: 08-19-2023 Patient encounter procedure [facility]-Radiology, [place] Work Phone: Start: 08-09-2023 End: 08-09-2023 ambulatory [facility] Work Phone: Start: 08-09-2023 End: 08-09-2023 Discharged Recurring [facility] Work Phone: Start: 08-09-2023 Registered Recurring [facility] Work Phone: Start: 07-30-2023 End: 07-30-[address] J Luis Lai Work Phone: [facility] Start: 07-05-2023 End: 07-05-[address] J Luis Lai Work Phone: [facility] Work Phone: Start: 07-05-2023 End: 07-05-[address] J Luis Lai Work Phone: [facility] Work Phone: Start: 05-27-2023 End: 05-27-[address] J Luis Lai Work Phone: [facility] Work Phone: Start: 05-27-2023 End: 05-27-[address] J Luis Lai Work Phone: [facility] Work Phone: Start: 04-18-2023 End: 04-18-[address] J Luis [facility] Start: 04-16-2023 End: 04-16-[address] J Luis Lai Work Phone: [facility] Start: 04-12-2023 End: 04-12-[address] J Luis Lai Work Phone: [facility] Work Phone: Start: 04-12-2023 End: 04-12-[address] J Luis Lai Work Phone: [facility] Start: 01-24-2023 Non-patient / Non-visit Dr. Garima Lai Work Phone: [facility] Start: 10-24-2022 End: 10-31-[address] JLuis Lai Work Phone: [facility] Work Phone: Start: 10-24-2022 End: 10-31-[address] J Luis Lai Work Phone: [facility] Start: 09-19-2022 End: 09-19-[address] J Luis Lai Work Phone: [facility] Start: 09-17-2022 End: 09-17-[address] J Luis Lai Work Phone: [facility] Start: 09-07-2022 End: 09-07-2022 Emergency department patient visit Dr. J Luis Lai Work Phone: [facility]-Emergency Department Start: 08-31-2022 End: 08-31-[address] J Luis Lai Work Phone: [facility]-Sleep Lab Start: 08-21-2022 End: 08-21-[address] J Luis Lai Work Phone: [facility]-Outpatient Bone Densitometry Start: 08-14-2022 End: 08-14-[address] J Luis Lai Work Phone: [facility] Start: 07-23-2022 End: 07-23-[address] J Luis Lai Work Phone: [facility]-Pulmonary Medicine [facility] Start: 07-17-2022 End: 07-17-[address] J Luis Lai Work Phone: [facility] Work Phone: Start: 07-17-2022 End: 07-17-[address] J Luis Lai Work Phone: [facility] Start: 06-20-2022 End: 06-20-[address] J Luis Lai Work Phone: [facility] Start: 06-13-2022 End: 06-13-[address] J Luis Lai Work Phone: [facility]-Outpatient Breast Imaging Start: 06-13-2022 End: 07-01-[address] J Luis Lai Work Phone: [facility] Start: 06-13-[address] Arsalan Lai Work Phone: [facility] Start: 05-21-2022 End: 05-21-[address] J Luis Lai Work Phone: [facility]-Sleep Lab Start: 05-10-2022 Non-patient / Non-visit Dr. Garima Lai Work Phone: [facility] Start: 05-10-2022 End: 05-10-[address] J Luis Lai Work Phone: [facility]-Pulmonary Services/Neurology Start: 05-04-2022 Non-patient / Non-visit Dr. Garima Lai Work Phone: [facility] Start: 05-04-2022 End: 05-04-[address] J Luis Lai Work Phone: [facility]-Cardiovascula r Services Start: 04-24-2022 End: 04-24-[address] J Luis Lai Work Phone: [facility]-Pulmonary Medicine [facility] Start: 04-24-2022 End: 04-24-[address] J Luis Lai Work Phone: [facility] Start: 03-30-2022 End: 03-30-[address] J Luis Lai Work Phone: [facility] Start: 03-30-[address] Arsalan Lai Work Phone: [facility] Start: 03-30-2022 Non-patient / Non-visit Dr. Garima Lai Work Phone: [facility] Start: 03-30-2022 End: 03-30-[address] J Luis Lai Work Phone: [facility]-Pulmonary Services/Neurology Start: 03-22-2022 End: 03-22-[address] J Luis Lai Work Phone: [facility] Start: 03-21-2022 End: 03-21-[address] J Luis Lai Work Phone: [facility] Start: 03-06-2022 End: 03-07-[address] SANTHOSH MCMANUS MD [facility] Start: 02-19-2022 End: 02-19-[address] SANTHOSH MCMANUS MD [facility] Start: 02-08-2022 End: 03-01-[address] J Luis Lai Work Phone: [facility] Start: 02-07-[address] Alysia Lai Work Phone: [facility] Start: 02-07-[address] Carlos Lai MD Work Phone: [facility] Start: 02-07-2022 End: 02-07-2022 Admission to same day surgery center Dr. J Luis Lai Work Phone: [facility] Start: 02-07-2022 End: 02-07-[address] J Luis Lai Work Phone: [facility] Start: 01-29-2022 End: 01-29-[address] J Luis Lai Work Phone: [facility] Start: 01-23-2022 End: 01-23-[address] J Luis Lai Work Phone: [facility] Start: 12-21-[address] Arsalan Lai Work Phone: [facility] Start: 12-21-2021 End: 12-21-[address] J Luis Lai Work Phone: [facility] Start: 12-04-2021 End: 12-04-[address] J Luis [facility] Start: 11-22-2021 End: 12-02-[address] J Luis Lai Work Phone: [facility] Procedures Date Procedure Procedure Detail Performing Clinician Start: 05-25-[address] Adrián Lai MD Work Phone: Start: 05-01-2025 Urnls dip stick/tabl et reagent auto microscopy Dr. Daniel Lai MD Work Phone: Start: 05-01-[address] Daniel Lai MD Work Phone: Start: 05-01-2025 X-ray of chest, PA a nd lateral views Dr. Daniel Lai MD Work Phone: Start: 05-01-[address] Arsalan Lai MD Work Phone: Start: 03-22-[address] Daniel Lai MD Work Phone: Start: 03-22-2025 Total iron binding c apacity measurement Dr. Daniel Lai MD Work Phone: Start: 09-14-2024 Assay of phosphorus inorganic Dr. Daniel Lai MD Work Phone: Start: 09-14-2024 Measurement of renal function Dr. Daniel Lai MD Work Phone: Comment on above: GFR Calc Start: 03-16-2024 Vitamin D, 25-hydrox y measurement Dr. Daniel Lai MD Work Phone: Comment on above: Vitamin D 25(OH) Sta tus Range Deficiency <20 ng/mL (50nmol/L) Insufficiency 20 - 30 ng/mL (50 - 75 nmol/L) Sufficiency 30 - 100 ng/mL (75 - 250 nmol/L) Toxicity >100 ng/mL (>250 nmol/L) Start: 10-21-2023 X-ray of lumbosacral spine Dr. J Luis Lai Work Phone: Start: 08-22-2023 Ultrasonography of breast Start: 08-22-2023 Bilateral mammography Start: 08-19-2023 Plain chest X-ray Start: 08-19-2023 X-ray of unilateral ribs, two views without x-ray of chest Start: 10-16-2022 Complete x-ray serie s of lumbar spine with bending views Dr. J Luis Lai Work Phone: Start: 09-07-2022 Plain chest X-ray Dr. Alysia Lai Work Phone: Start: 09-07-2022 CT of head without contrast Dr. J Luis Lai Work Phone: Start: 08-21-2022 Dual energy X-ray absorptiometry Dr. J Luis Lai Work Phone: Start: 06-13-2022 Screening mammography Miguel Lai Work Phone: Start: 03-22-2022 CT angiography of ch est with contrast Dr. J Luis Lai Work Phone: Start: 03-21-2022 Plain chest X-ray Dr. Alysia Lai Work Phone: Start: 03-06-2022 Structure of left sh oulder region (body structure) DR SANTHOSH MCMANUS MD Start: 01-23-2022 CT of upper limb wit hout contrast Dr. J Luis Lai Work Phone: Start: 12-04-2021 Inj/Asp Perez Jt Should/Hip/Knee Dr. J Luis Lai Work Phone: Cataract (morphologi c abnormality) DR SANTHOSH MCMANUS MD Comment on above: Bilateral removal Decompression of med camilla nerve DR SANTHOSH MCMANUS MD Comment on above: QUINN Esophagogastrostomy, antesternal or antethoracic DR SANTHOSH MCMANUS MD History of radiofreq uency ablation operation for arrhythmia DR SANTHOSH MCMANUS MD Hysterectomy DR SANTHOSH Goodwin MD Ligation of fallopian tube Miguel MCMANUS MD Comment on above: [address] TERESA MCMANUS MD Comment on above: L5-S1 Lumpectomy of breast DR TERESA MCMANUS MD Comment on above: LEFT Lumpectomy of right breast Miguel MCMANUS MD Release of trigger finger DR SANTHOSH MCMANUS MD Comment on above: Bilateral hands SARS-CoV-2 & FLU Ant igen (Rapid) Dr. J Luis Lai Work Phone: Tonsillectomy DR SANTHOSH HOLDEN MD Total knee replacement DR IVORY BERRIOS Comment on above: QUINN Total shoulder replacement Miguel MCMANUS MD Comment on above: RIGHT Plan of Treatment Date Care Activity Detail Author Start: 05-25-2025 Ambulation without limitation [facility] Start: 05-25-2025 Medication education [facility] Start: 05-25-2025 Patient discharge [facility] Start: 05-25-2025 Planned voiding [facility] Start: 05-25-2025 Procedure discontinued [facility] Start: 05-25-2025 Taking patient vital signs [facility] Start: 05-25-2025 Vital signs measurements [facility] Start: 05-25-2025 [facility] Start: 05-25-2025 Anesthesia vaginal procedure w/biopsy nos ANESTH VAGINAL PROCEDURES [facility] Start: 05-25-2025 Excision vaginal cyst/tumor EXCISION VAGINAL CYST/TUMOR [facility] Start: 05-25-2025 Lysis labial adhesions LYSIS OF LABIAL ADHESIONS [facility] Start: 05-25-2025 Excision Excision, Lesion (Not Applicable) [facility] Start: 05-01-2025 [facility] Start: 05-01-2025 End: 05-01-2025 [facility] Start: 05-01-2025 Bacteria identified in Urine by Culture Urine Culture [facility] Start: 03-17-2024 Patient referral [facility] Work Phone: Start: 08-22-2023 Ultrasonography of breast Breast Limited Unilateral [facility] Start: 08-22-2023 US Breast limited [facility] Start: 01-19-2020 MG Breast - bilateral Screening [facility] Start: 04-07-2019 [facility] CBC W Auto Different ial panel - Blood [facility] Work Phone: CBC W Auto Different ial panel - Blood [facility] CBC W Auto Different ial panel - Blood [facility] CBC W Auto Different ial panel - Blood [facility] Comprehensive metabo lic 2000 panel - Serum or Plasma [facility] DXA Bone [Mass/Area] Bone density [facility] Work Phone: Lactate dehydrogenas e measurement [facility] Lactate dehydrogenas e measurement [facility] Lactate dehydrogenas e measurement [facility] LDH [facility] Work Phone: Magnesium [Mass/volu me] in Serum or Plasma [facility] Magnesium [Mass/volu me] in Serum or Plasma [facility] Patient Education [facility] Work Phone: Patient referral [facility] Work Phone: Serum inorganic phos phate measurement [facility] Urine culture [facility] Immunizations Immunization Date Immunization Notes Care Provider Fa cility 12-06-2021 SARS-CoV-2 mRNA (tozinameran) vaccine DR SANTHOSH MCMANUS MD [facility] 08-16-2021 influenza virus vaccine, unspecified formulation DR SANTHOSH MCMANUS MD [facility] 03-10-2021 SARS-CoV-2 (COVID-19 ) mRNA-[address] SANTHOSH MCMANUS MD [facility] 02-10-2021 SARS-CoV-2 (COVID-19 ) mRNA-[address] SANTHOSH MCMANUS MD [facility] 11-13-2017 pneumococcal conjuga te vaccine, [address] SANTHOSH MCMANUS MD [facility] Payers Date Payer Category Payer Medicare [id number] 2019 Self-pay [id number] 2009 Unknown [id number] 2008 Medicare [id number] Unknown [id number] Unknown [id number] 2.16.8 40.1.764316.3.579.2.462 Unknown [id number] 2.16.8 40.1.227755.3.579.2.462 Unknown [id number] 2.16.8 40.1.517704.3.579.2.462 Unknown [id number] 2.16.8 40.1.233945.3.579.2.462 Unknown [id number] 2.16.8 40.1.978507.3.579.2.462 Unknown [id number] 2.16.8 40.1.025448.3.579.2.462 Unknown [id number] 2.16.8 40.1.664616.3.579.2.462 Unknown [id number] 2.16.8 40.1.118919.3.579.2.462 Unknown [id number] 2.16.8 40.1.486222.3.579.2.462 Unknown [id number] 2.16.8 40.1.373564.3.579.2.462 Unknown [id number] 2.16.8 40.1.485193.3.579.2.462 Unknown [id number] 2.16.8 40.1.212718.3.579.2.462 Unknown [id number] 2.16.8 40.1.872270.3.579.2.462 Unknown [id number] 2.16.8 40.1.998568.3.579.2.462 Unknown [id number] 2.16.8 40.1.860403.3.579.2.462 Unknown [id number] 2.16.8 40.1.279393.3.579.2.462 Unknown [id number] 2.16.8 40.1.470081.3.579.2.462 Unknown [id number] 2.16.8 40.1.772031.3.579.2.462 Unknown [id number] 2.16.8 40.1.956168.3.579.2.462 Unknown [id number] 2.16.8 40.1.465911.3.579.2.462 Unknown [id number] 2.16.8 40.1.937239.3.579.2.462 Unknown [id number] 2.16.8 40.1.276453.3.579.2.462 Unknown [id number] 2.16.8 40.1.888800.3.579.2.462 Unknown [id number] 2.16.8 40.1.887992.3.579.2.462 Unknown [id number] 2.16.8 40.1.262959.3.579.2.462 Unknown [id number] 2.16.8 40.1.724432.3.579.2.462 Unknown [id number] 2.16.8 40.1.845298.3.579.2.462 Unknown [id number] 2.16.8 40.1.257306.3.579.2.462 Unknown [id number] 2.16.8 40.1.055182.3.579.2.462 Unknown [id number] 2.16.8 40.1.575957.3.579.2.462 Social History Date Type Detail Facility Start: 02-19-2022 End: 05-01-2025 Never smoked tobacco (finding) [facility] Start: 1945 Sex Assigned At Female [facility] Start: 02-07-2022 End: 10-18-2023 Tobacco smoking status NHIS Unknown if ever smoked [facility] Start: 09-18-2019 None [facility] Start: 09-18-2019 Alone [facility] Start: 01-24-2021 Non-smoker [facility] Start: 03-01-2025 Sex Female (finding) [facility] Not [facility] NEGATED: Highlighted row Not [facility] Medical Equipment Procedure Code Equipment Code Equipment Origin al Text Equipment Identifier Dates Excision, lesion Collagen haemos tatic agent, non-antimicrobial [id number] [facility] Start: 05-25-2025 Goals Date Patient Goal Desired Activity /State Functional Status Date Assessment Result Facility 03-07-2022 Functional Status [facility] 03-07-2022 Functional Status [facility] 03-07-2022 Functional Status [facility] 03-07-2022 Functional Status [facility] 03-07-2022 Functional Status [facility] 03-07-2022 Functional Status [facility] 03-06-2022 [facility]-06-[facility]22 [facility] 03-06-2022 [facility] 03-06-2022 Functional Status Idania amin [facility] Mental Status Date Assessment Result Facility 05-25-2025 Cognitive function Voice/Name [facility] Work Phone: 05-25-2025 Cognitive function Voice/Name [facility] Work Phone: 05-01-2025 Cognitive function Level Of Cons ciousness Awake;Alert;Appropriate [facility] Work Phone: 03-22-2025 Cognitive function Voice/Name [facility] Work Phone: 03-19-2024 Cognitive function Voice/Name [facility] Work Phone: 08-20-2023 Cognitive function Voice/Name [facility] Work Phone: 09-07-2022 Cognitive function Appropriate;Cooperativ e [facility] Work Phone: 03-07-2022 Mental Status [facility] 03-07-2022 Mental Status [facility] 03-07-2022 [facility] Status [facility] Idania Cook Clinical Notes 03-07-2022 to 06-07-2025 Note Date & Type Note Facility 06-07-2025 Progress note [facility] 06-07-2025 Progress note Note Date/Time June 07, 2025 3:03pm [facility] [address] [place] [address], [address] [place] [address] OFFICE VISIT Date of Service: 06/07/25 MR#: [id number] Acct: [id number] Name: GAYATHRI CORREIA Rep #: [id number] : 1945 Provider: Dr. Sinai Dick DO Age/Sex: 79/F Location: [facility] Status: Signed Intake Vital Signs 04/06/25 08:35 04/30/25 13:50 05/25/25 12:03 06/07/25 14:36 06/07/25 14:38 Height 4 ft 10 in 4 ft 10 in 4 ft 10 in 4 ft 10 in 4 ft 10 in Weight: 196 lb 8 oz BMI 41.1 BP 116/81 H Intake Visit Reasons: 2 wk labial lysys adhesions remove vag. mass Early Childhood Required: No Is patient in pain?: No Allergies No Known Allergies Allergy (Verified 06/07/25 14:36) Medications ?Medication ?Instructions ?Recorded ?Confirmed ?Type wpqiskvp-pjxk-pcrs 8 mg-folic 400 1 ea PO DAILY supple ment 03/02/17 06/07/25 History mcg-K 50 mcg-lutein 300 mcg tablet gabapentin 300 mg capsule 300 mg PO BID pain 30 days # 90 caps 12/24/18 06/07/25 History coenzyme Q10 100 mg capsule 100 mg PO DAILY 08/09/21 0 06/07/25 History (Q-Sorb Co Q-10) melatonin 3 mg tablet 10 mg PO QHS sleep 02/07/22 06/07/25 History acetaminophen 500 mg tablet 1,000 mg PO ONCE 11/09/22 06/07/25 History calcium carbonate (Calcium 600) 600 mg PO BID 11/09/22 06/07/25 History cholecalciferol (vitamin D3) 50 50 mcg PO BID 11/09/22 06/07/25 History mcg (2,000 unit) capsule pyridoxine (vitamin B6) 100 mg 100 mg PO DAILY supplem ent 11/09/22 06/07/25 History tablet tamoxifen 20 mg tablet 20 mg PO DAILY #90 TABLETS 1 06/07/25 Rx escitalopram oxalate 10 mg tablet 10 mg PO QDAY 06/07/25 History warfarin 3 mg tablet 3 mg PO .COMPLEX #90 TABLETS 03/08/25 06/07/25 Rx furosemide 40 mg tablet 40 mg PO DAILY #90 tabs 04/08/2606/07/25 Rx metoprolol succinate 25 mg 25 mg PO .COMPLEX afib #180 tabs 03/15/25 06/07/25 Rx tablet,extended release 24 hr atorvastatin 10 mg tablet 10 mg PO DAILY #90 tabs /12/2606/07/25 Rx losartan 100 mg tablet 100 mg PO DAILY #90 tabs 06/07/25 Rx metoprolol tartrate 25 mg tablet 25 mg PO .COMPLEX PRN rapid HR #10 05/18/25 06/07/25 Rx tabs estradiol 0.01% (0.1 mg/gram) 1 appful vaginal DAILY # 42.5 grams 05/25/25 06/07/25 Rx vaginal cream Is last menstrual period known: No Post menopausal: Yes Patient : No : No PFSH Medical History Dilated aortic root Wears glasses Post-menopausal Cancer Depression History of steroid therapy Arthritis Loss of consciousness History of IBS Non-smoker CPAP (continuous positive airway pressure) dependence Sleep apnea Shortness of breath on exertion Chronic cough History of echocardiogram History of stress test Hypertension History of irregular heartbeat Cardiology follow-up encounter History of atrial fibrillation History of trigger finger Osteoporosis Sleep apnea with use of continuous positive airway pressure (CPAP) Cataract, left eye Irritable bowel Wrist fracture, left Lung nodule, multiple Encounter for education Breast cancer, right breast Malignant neoplasm of central portion of right female breast Paroxysmal atrial flutter Spinal stenosis Essential (primary) hypertension intermediate (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 of anticoagulants Paroxysmal atrial fibrillation Obesity Type 2 diabetes mellitus Surgical History Vaginal cyst Hx of cataract extraction Status post right breast lumpectomy S/P right breast biopsy (03/05/19) S/P shoulder surgery H/O dilation and curettage H/O hand surgery S/P carpal tunnel release h/o breast lumpectomy H/O: hysterectomy H/O total knee replacement History of tonsillectomy History of back surgery History of radiofrequency ablation procedure for cardiac arrhythmia (03/20/11) History of gastric bypass Family History Sister CVA (cerebral vascular accident) Father CAD (coronary artery disease) Hypertension Mother Hypertension CAD (coronary artery disease) Social History Smoking Status: Never smoker Electronic Cigarette Use: not used second hand exposure: Yes (Childhood ) alcohol intake: current alcohol intake frequency: holidays/special occasions only Alcohol type: wine substance use type: does not use additional social history: HPI 2 wk labial lysys adhesions remove vag. mass Details: GAYATHRI CORREIA is a 79 year old who presents for 2 week post op labial adhesiolysis and vaginal cyst removal. THe pathology was benign and she is usingestrogen cream. History 3 Elective abortions Hx Para 3 Spontaneous abortions Hx # Term Pregnancies Ectopic pregnancies Hx # Pregnancies Multiple births # of living children Past Pregnancies Del. Date Name GA/Weeks Outcome Route Bth Weight Gen Labor Lgth Anes thesi a Del Locatn Provider FOB Unknown Sergey Unknown Anuel Unknown Akiko REHANA ENT ENT: Reports system reviewed and no additional complaints, except as documented Cardio Card: Reports system reviewed and no additional complaints, except as documented Resp Resp: Denies cough, dyspnea or dyspnea on exertion GI GI: Denies abdominal pain, bloating or change in bowel habits : Denies vaginal odor or vaginal pruritus Musc Musc: Reports system reviewed and no additional complaints, except as documented Exam Const General: cooperative, healthy appearing and comfortable Resp Effort & Inspection: normal respiratory effort Extrem General: no edema Coding Level of Care Code No Charge Diagnoses Vaginal mass N89.8 Assessment and Plan Assessment and Plan (1) Vaginal mass: Status: Acute Plan: no complaints today. pathology reviewed continue use of estrogen cream. rto in one year 06/07/25 [id number] <Electronically signed by Senait Torres DO> Date _ [facility] Dick DO [facility] Signature: Date (if applicable) CC: ~ [facility] Work Phone: 1(328) 101-132506-24-2025 Discharge summary Author Senait Sorto [facility] Note Date/Time May 25, 2025 1:33 pm [facility] Medical Records Department [address] [place] [address] Instructions for Home/Discharge Instructions 05/25/25 1332 MR#: [id number] Acct: [id number] Name: GAYATHRI CORREIA Rep #:[id number] : 1945 79 From: Senait Dick DO PCP: Dr. Daniel Lai MD Status :[facility] Discharge Instructions Diet Discharge Diet: No restrictions DC O2, CPAP, BIPAP needs Home O2 Discharge instructions: No Dressing / Incision Discharge Activity: Return to Normal Activity Weight Bearing Status: Weight bearing as tolerated Lifting Restrictions: none Additional Activity Instructions:: may shower but no bath for 2 weeks Dressing / Incision Call your doctor if your incision/area has: Sudden Increased Bleeding and Foul Smelling Discharge Call your doctor if you observe: Fever of 101 or Higher, Using more than 1 pad per hour, Shortness of breath, Dizziness, Fainting spells, Chest pain, Calf discomfort and Uncontrolled pain Follow Up Care Test Results: Test results from this visit will be discussed in further detail at your follow- up appointment, if applicable. Discharge Plan Admission Primary Reason for Your Visit: excision of vaginal cyst Attending Provider: Senait Dick Primary Care Provider: Daniel Lai Instructions Print Language: Salvadorean Discharge Orders/Prescriptions Prescriptions: Continued gabapentin 300 mg capsule 300 mg PO BID 30 Days Qty: 90 pyridoxine (vitamin B6) 100 mg tablet 100 mg PO DAILY cholecalciferol (vitamin D3) 50 mcg (2,000 unit) capsule 50 mcg PO BID coenzyme Q10 [Q-Sorb Co Q-10] 100 mg capsule 100 mg PO DAILY calcium carbonate [Calcium 600] 600 mg calcium (1,500 mg) tablet 600 mg PO BID tamoxifen 20 mg tablet 20 mg PO DAILY Qty: 90 3RF escitalopram oxalate 10 mg tablet 10 mg PO QDAY Patient Comments: [NO ORIGINAL SIG] metoprolol tartrate 25 mg tablet 25 mg PO .COMPLEX PRN (Reason: rapid HR) Qty: 10 0RF Rx Instructions: 25 mg orally as needed for rapid HR, do not take more than one a day prvvdldj-kqv-rtox-FA-vit K-lut 1 EACH tablet 1 ea PO DAILY melatonin 3 mg tablet 10 mg PO QHS acetaminophen 500 mg tablet 1,000 mg PO ONCE warfarin 3 mg tablet 3 mg PO .COMPLEX Qty: 90 3RF Protocol: Dose Management Condition: Saturday Dose/Route: 1.5 mg Instruction: 0.5 x 3 mg tablets Condition: Saturday Dose/Route: 3 mg Instruction: 1 x 3 mg tablet Condition: Saturday Dose/Route: 3 mg Instruction: 1 x 3 mg tablet Condition: Saturday Dose/Route: 1.5 mg Instruction: 0.5 x 3 mg tablets Condition: Dose/Route: 1.5 mg Instruction: 0.5 x 3 mg tablets Condition: Saturday Dose/Route: 1.5 mg Instruction: 0.5 x 3 mg tablets Condition: Saturday Dose/Route: 1.5 mg Instruction: 0.5 x 3 mg tablets Protocol Text: Adjustment Start Date: Saturday02/24/25 INR Value: 2.3 INR Date: 02/24/25 Recheck Date: 03/26/25 Patient Comments: PT TO STOP PER DR. EASTMAN ORDERS PRIOR TO PROCEDURE Rx Instructions: 3 mg orally Every Saturday and Saturday: take 1/2 tablet all other days of the week OR as directed. Please give extra tablets for PRN dose changes. furosemide 40 mg tablet 40 mg PO DAILY Qty: 90 3RF metoprolol succinate 25 mg tablet extended release 24 hr 25 mg PO .COMPLEX Qty: 180 3RF Rx Instructions: 25 mg PO daily, may take one extra tablet daily for BP > 140 systolic or HR >110.; losartan 100 mg tablet 100 mg PO DAILY Qty: 90 3RF atorvastatin 10 mg tablet 10 mg PO DAILY Qty: 90 3RF Referrals / Follow Up: Daniel Lai MD [Primary Care Provider] - Disposition Disposition (needs filled in before D/C Order can be placed): Home, Self Care 05/25/25 1333<Electronically signed by Senait Dick DO>Senait Dick DO CC: Dr. Daniel Lai MD ~ Signed [facility] Work Phone: 1(728) 772-887206-24-2025 History and physical note Author Senait [facility] Note Date/Time May 25, 2025 1:32 pm [facility] Medical Records Department [address] [place] [address] History & Physical Exam 05/25/25 1331 MR#: [id number] Acct: [id number] Name: GAYATHRI CORREIA Rep #:[id number] : 1945 79 From: Senait Dick DO PCP: Dr. Daniel Lai MD Status :[facility] Location: [place] [address] History and Physical Date of Admission: 05/25/25 Intake Vital Signs 04/06/2508:35 04/30/2513:50 Height 4 ft 10 in 4 ft 10 in Weight: 198 lb 8 oz 197 lb BMI 41.5 41.1 BP 104/71 101/69 Intake Visit Reasons: labial lysis of adhesions remove vag. mass Early Childhood Required: No Is patient in pain?: No Allergies No Known Allergies Allergy (Verified 04/30/25 13:53) Medications ?Medication ?Instructions ?Recorded ?Confirmed ?Type zqxrbqkm-fwak-xhbc 8 mg-folic 400 1 ea PO DAILY supplement 03/02/17 History mcg-K 50 mcg-lutein 300 mcg tablet gabapentin 300 mg capsule 300 mg PO BID pain 30 days #90 caps 12/0304/30/25 History coenzyme Q10 100 mg capsule 100 mg PO DAILY 08/09/21 04/30/25 Histor y (Q-Sorb Co Q-10) melatonin 3 mg tablet 10 mg PO QHS sleep 02/07/22 04/30/25 His tory acetaminophen 500 mg tablet 1,000 mg PO ONCE 11/09/22 04/30/25 Histo ry calcium carbonate (Calcium 600) 600 mg PO BID 11/09/22 04/30/25 History cholecalciferol (vitamin D3) 50 50 mcg PO BID 11/09/22 04/30/25 History mcg (2,000 unit) capsule pyridoxine (vitamin B6) 100 mg 100 mg PO DAILY supplement 11/09/2204/03 History tablet tamoxifen 20 mg tablet 20 mg PO DAILY #90 TABLETS 09/14/2404/03 Rx escitalopram oxalate 10 mg tablet 10 mg PO QDAY 02/26/25 04/30/25 History warfarin 3 mg tablet 3 mg PO .COMPLEX #90 TABLETS 03/08/25 Rx furosemide 40 mg tablet 40 mg PO DAILY #90 tabs 03/10/25 5 Rx metoprolol succinate 25 mg 25 mg PO .COMPLEX afib #180 tabs 5 04/30/25 Rx tablet,extended release 24 hr atorvastatin 10 mg tablet 10 mg PO DAILY #90 tabs 03/22/25 5 Rx losartan 100 mg tablet 100 mg PO DAILY #90 tabs 03/22/25 Rx Is last menstrual period known: No Post menopausal: Yes Patient : No : No PFSH Medical History Wears glasses Post-menopausal Cancer Depression History of steroid therapy Arthritis Loss of consciousness History of IBS Non-smoker CPAP (continuous positive airway pressure) dependence Sleep apnea Shortness of breath on exertion Chronic cough History of echocardiogram History of stress test Hypertension History of irregular heartbeat Cardiology follow-up encounter History of atrial fibrillation History of trigger finger Osteoporosis Sleep apnea with use of continuous positive airway pressure (CPAP) Cataract, left eye Irritable bowel Wrist fracture, left Lung nodule, multiple Encounter for education Breast cancer, right breast Malignant neoplasm of central portion of right female breast Paroxysmal atrial flutter Spinal stenosis Essential (primary) hypertension intermediate (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 of anticoagulants Paroxysmal atrial fibrillation Obesity Type 2 diabetes mellitus Surgical History Hx of cataract extraction Status post right breast lumpectomy S/P right breast biopsy (03/05/19) S/P shoulder surgery H/O dilation and curettage H/O hand surgery S/P carpal tunnel release h/o breast lumpectomy H/O: hysterectomy H/O total knee replacement History of tonsillectomy History of back surgery History of radiofrequency ablation procedure for cardiac arrhythmia (03/20/11) History of gastric bypass Family History Sister CVA (cerebral vascular accident)Father CAD (coronary artery disease) HypertensionMother Hypertension CAD (coronary artery disease) Social History Smoking Status: Never smoker Electronic Cigarette Use: not used second hand exposure: Yes (Childhood ) alcohol intake: current alcohol intake frequency: holidays/special occasions only Alcohol type: wine substance use type: does not use additional social history: HPI labial lysis of adhesions remove vag. mass Details: GAYATHRI CORREIA is a 79 year old who presents for a pre op evaluation for a labial lysis of adhesions and removal of vaginal mass. Her pcp gave instructionsto proceed with surgery but to manage the coumadin as I feel appropriate. Surgery is scheduled for 05/11/25 however patient states that she would really like to go to [facility] on the and go to a camp ground where she will swimand be out doors. I have explained to her that she is at risk for labial hematoma after these kinds of procedures, especially when on coumadin and I needher to be limited activity for a few days. She is requesting we move the surgeryto 05/25 instead. She also states that Dr. Epstein may have better recommendations about when to stop and restart her coumadin. History 3 Elective abortions Hx Para 3 Spontaneous abortions Hx # Term Pregnancies Ectopic pregnancies Hx # Pregnancies Multiple births # of living children Past Pregnancies Del. Date Name GA/Weeks Outcome Route Bth Weight Infant Gen Labor Lgth Anesthesia Del Locatn Provider FOB Unknown Sergey Unknown Anuel Unknown Akiko ROS Const ROS Unobtainable: All systems reviewed & are unremarkable except as noted in H Resp Resp: Reports system reviewed and no additional complaints, except as documented; Denies cough GI GI: Reports as per HPI Psych Psych: Reports system reviewed and no additional complaints, except as documented Exam Const General: cooperative, healthy appearing, comfortable and no acute distress Resp Effort & Inspection: normal respiratory effort Skin General: no rashes or lesions noted Psych Appearance: grossly normal Speech and Movement: speech and movement normal Coding Level of Care Code Off vis,est,level 4 Diagnoses Vaginal mass N89.8 Postmenopausal bleeding N95.0 Assessment and Plan Assessment and Plan (1) Vaginal mass: Status: Acute (2) Postmenopausal bleeding: Status: Acute Plan After discussing the patient's diagnosis and treatment plan options, patient wishes to proceed with surgical management. I have discussed with the patient the risks, benefits, and alternatives of the procedure which include but are notlimited to risks of anesthesia, bleeding, infection, possible damage to bowel, bladder, or surrounding vasculature which could lead to additional surgery to evaluate any complications. Patient agrees to procedure and wishes to proceed. ACOG/uptodate references given for additional information regarding procedure. plan for lysis of labia adhesions and removal of vaginal mass that is likely causing postmenopausal bleeding. will need estrogen cream after surgery and willneed to contact Dr. Epstein about her coumadin. Will rescheduled to 05/25/25 05/25/25 1332 <Electronically signed by Senait Dick DO> Cosigner Signature (if applicable): CC: Dr. Daniel Lai MD; Dr. Senait Dick DO~ Signed [facility] Work Phone: [phone] Consult note Author Basil [facility] Note Date/Time May 25, 2025 1:28 pm [facility] Medical Records Department [address] [place] [address] Pre-Anesthesia Evaluation 05/25/25 1317 MR#: [id number] Acct: [id number] Name: GAYATHRI CORREIA Rep #:[id number] : 1945 79 From: Basil Harris MD PCP: Dr. Daniel Lai MD Status :REG SDC Y Race: C Location: [place] [address] ASA Classification* ASA Classification ASA Classification: 3 Assessment & Plan Anesthesia* Anesthesia Assessment Anesthesia Assessment: Discussed sedation and/or anesthesia options, risks, benefits, and alternatives with patient/parents/legal guardian/POA. Questions invited. The patient/parents/legal guardian/POA seems to understand and agrees to proceedwith anesthesia plan. Reviewed the physical assessment, medical history, allergy history and patient home medications list prior to surgery/procedure/anesthetic and documented any changes. Performed airway and anesthesia risk assessments. Anesthesia Type Anesthesia Type: MAC History Source History Obtained from:: Patient and Chart Anesthesia Focused Assessment* Temperature: 98.2 F Pulse Rate: 65 Blood Pressure: 145/85 Respiratory Rate: 18 Pulse Ox: 96 Oxygen Delivery Method: Room Air Airway Assessment Mouth opens: >3 cm Mallampati Score: II Teeth Condition: Caps/Crowns (Patient has several crowns. They are all tight. Patient has a upper right bridge. It is permanent.) Neck Range of motion (ROM): Full ROM Labs Anesthesia Preop lab: CBC WBC 5.4 K/mm3 (4.4-11.0) 05/01/25 15:00 05/01/25 RBC 3.60 M/mm3 (4.2-5.4) L 05/01/25 15:00 05/01/25 Hgb 11.1 g/dL (12.0-15.0) L 05/01/25 15:00 5 Hct 34.8 % (37-47) L 05/01/25 15:00 05/01/25 Plt Count 210 K/mm3 (150-450) 05/01/25 15:00 05/01/25 CHEMISTRY Potassium 4.4 mmol/L (3.3-5.1) 05/01/25 15:00 05/01/25 Sodium 142 mmol/L (133-145) 05/01/25 15:00 05/01/25 Magnesium 2.1 mg/dL (1.6-2.6) 09/14/24 10:22 09/14/24 Phosphorus 2.6 mg/dL (2.5-4.9) 09/14/24 10:09/14/24 BUN 16 mg/dL (4-19) 05/01/25 15:00 05/01/25 Creatinine 1.26 mg/dL (0.70-1.20) H 05/01/25 15:00 Glucose 125 mg/dL (70-99) H 05/01/25 15:00 05/01/25 TSH 2.07 uIU/mL (0.358-3.74) 07/30/23 11:36 COAG PT 27.5 SECONDS (11.7-14.9) H 05/01/25 15:00 0512/26 INR 2.5 01/14/25 09:25 01/14/25 Pre-Assessment Diagnosis/Proposed Procedure Planned Operative Procedure(s): Labial Lysis of Adhesions, removal of Vaginal Mass Anesthesia History Anesthesia History - booking police officer: Anesthesia History - booking police officer Hx Hospitalization No 04/28/25 13:21 Any Problems With Anesthesia Yes: sometimes nausea 04/28/25 13:21 Cholinesterase deficiency No 04/28/25 13:21 You/Your Family Experience No 04/28/25 13:21 fever (hyperthermia) with Relationship Recent Exposure to Contagious No 05/25/25 12:03 Disease Does patient have nerve No 04/28/25 13:21 stimulator Patient instructed to have device shut off --Does patient have Pacemaker No 05/25/25 12:03 or ICD? When Was Last Pacemaker Check QUESTION #4 FULL TEXT: You/Your Family Experience fever (hyperthermia) with Anesthesia Last Oral Intake Last Oral intake: Last Oral Intake NPO since 21:00 05/25/25 12:03 Meds taken in AM with sips of Yes 05/25/25 12:03 water? Meds patient instructed to take am of surgery Any additional information?: Yes Meds taken in AM with sips of water?: Yes PONV PONV - booking police officer: PONV - booking police officer Female Yes 04/28/25 13:21 HX of Motion Sickness No 04/28/25 13:21 HX of N/V After Surgery No 04/28/25 13:21 Non-Smoker Yes 04/28/25 13:21 Duration of Surgery greater No 04/28/25 13:21 than 60 minutes Number of Risk Factors 2 04/28/25 13:21 PONV Score Moderate Risk 04/28/25 13:21 Height & Weight Height & Weight: Anesthesia: Height & Weight Height 4 ft 10 in 05/25/25 12:03 Weight: 89.6 kg 05/25/25 12:03 Body Mass Index (BMI) 41.3 05/25/25 12:03 Respiratory Assessment Respiratory Assessment - booking police officer: Respiratory Tract Infection Hx - booking police officer Hx Respiratory Tract Infection No 04/28/25 13:21 STOP Sleep Apnea STOP Sleep Apnea - booking police officer: STOP Sleep Apnea - booking police officer Hx Hypertension Yes: states controlled with 04/28/25 13:21 med Hx Sleep Apnea Yes 04/28/25 13:21 CPAP Yes 04/28/25 13:21 BIPAP No 04/28/25 13:21 Do you snore loudly (louder than talking or can be heard Do you often feel tired/ fatigued/ sleepy during daytime? Has anyone observed you stop breathing during sleep? STOP Results Positive 04/28/25 13:21 QUESTION #5 FULL TEXT : Do you snore loudly (louder than talking or can be heard through closed doors)? Tobacco Use History Tobacco Use History - booking police officer: Tobacco Use History - booking police officer Tobacco Use Smoking Status Never smoker 05/01/25 14:57 Hx Tobacco Use No 04/28/25 13:21 Years Smoking Packs Smoked per Day Smoking Cessation Date was within the last 15 years Hx Smoking Cessation Date Hx Smoking Cessation Counseling Hematologic Medial History Hematologic Hx - booking police officer: Hematologic Medical Hx - opto mechanical technician Hx of Blood Transfusion No 04/28/25 13:21 Hx of Transfusion in last 3 No 04/28/25 13:21 Months Date of Last Transfusion (if within last 3 months) Ever experience any problems No 04/28/25 13:21 with transfusion(s)? Specify any problems Hx of Preganancy in last 3 No 04/28/25 13:21 Months Nurse Filling Out Transfusion VCHRISTIN 04/28/25 13:21 & Questions: Date: 04/28/25 04/28/25 13:21 Time: 13:22 04/28/25 13:21 Patient unable to answer at this time (ie. confused, unrespo /Reproduction History /Reproductive History - booking police officer: /Reproductive Hx- booking police officer Hx Now No 04/28/25 13:21 Gestational Age (in weeks): EDC: Hx Hx Para Hx Section SAB No 04/30/25 13:53 Active Medications Active Medications: Current Medications Generic Name Dose Route Start Last Admin Trade Name Freq PRN Reason Stop Dose Admin Lactated Ringer's 1,000 mls @ 15 mls/hr 05/25/25 11:45 05/25/25 12:15 IV 15 mls/hr .Q48H SHILOH Administration PFSH Medical History Dilated aortic root Wears glasses Post-menopausal Cancer Depression History of steroid therapy Arthritis Loss of consciousness History of IBS Non-smoker CPAP (continuous positive airway pressure) dependence Sleep apnea Shortness of breath on exertion Chronic cough History of echocardiogram History of stress test Hypertension History of irregular heartbeat Cardiology follow-up encounter History of atrial fibrillation History of trigger finger Osteoporosis Sleep apnea with use of continuous positive airway pressure (CPAP) Cataract, left eye Irritable bowel Wrist fracture, left Lung nodule, multiple Encounter for education Breast cancer, right breast Malignant neoplasm of central portion of right female breast Paroxysmal atrial flutter Spinal stenosis Essential (primary) hypertension intermediate (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 of anticoagulants Paroxysmal atrial fibrillation Obesity Type 2 diabetes mellitus Home Medications ?Medication ?Instructions ?Recorded ?Last Taken ?Type eqbknaqe-irgc-hdct 8 mg-folic 400 1 ea PO DAILY supple ment 03/02/17 05/24/25 History mcg-K 50 mcg-lutein 300 mcg tablet gabapentin 300 mg capsule 300 mg PO BID pain 30 days # 90 caps 12/24/18 05/25/25 History coenzyme Q10 100 mg capsule 100 mg PO DAILY 08/09/21 0 05/24/25 History (Q-Sorb Co Q-10) melatonin 3 mg tablet 10 mg PO QHS sleep 02/07/22 05/24/25 History acetaminophen 500 mg tablet 1,000 mg PO ONCE 11/09/22 05/24/25 History calcium carbonate (Calcium 600) 600 mg PO BID 11/09/22 05/24/25 History cholecalciferol (vitamin D3) 50 50 mcg PO BID 11/09/22 05/24/25 History mcg (2,000 unit) capsule pyridoxine (vitamin B6) 100 mg 100 mg PO DAILY supplem ent 11/09/22 05/24/25 History tablet tamoxifen 20 mg tablet 20 mg PO DAILY #90 TABLETS 1 05/24/25 Rx escitalopram oxalate 10 mg tablet 10 mg PO QDAY 05/24/25 History warfarin 3 mg tablet 3 mg PO .COMPLEX #90 TABLETS 03/08/25 05/20/25 Rx furosemide 40 mg tablet 40 mg PO DAILY #90 tabs 08/2605/24/25 Rx metoprolol succinate 25 mg 25 mg PO .COMPLEX afib #180 tabs 03/15/25 05/25/25 Rx tablet,extended release 24 hr atorvastatin 10 mg tablet 10 mg PO DAILY #90 tabs 03/0305/24/25 Rx losartan 100 mg tablet 100 mg PO DAILY #90 tabs 05/25/25 Rx metoprolol tartrate 25 mg tablet 25 mg PO .COMPLEX PRN rapid HR #10 05/18/25 Unknown Rx tabs Allergy/AdvReac Type Severity Reaction Status Date / Time No Known Allergies Allergy Verified 05/25/25 12:01 Family History Sister CVA (cerebral vascular accident) Father CAD (coronary artery disease) Hypertension Mother Hypertension CAD (coronary artery disease) Surgical History Hx of cataract extraction Status post right breast lumpectomy S/P right breast biopsy (03/05/19) S/P shoulder surgery H/O dilation and curettage H/O hand surgery S/P carpal tunnel release h/o breast lumpectomy H/O: hysterectomy H/O total knee replacement History of tonsillectomy History of back surgery History of radiofrequency ablation procedure for cardiac arrhythmia (03/20/11) History of gastric bypass Social History Smoking Status: Never smoker Electronic Cigarette Use: not used second hand exposure: Yes (Childhood ) alcohol intake: current alcohol intake frequency: holidays/special occasions only Alcohol type: wine substance use type: does not use additional social history: Review of Systems (Anesthesia) ROS Narrative System reviewed and no additional complaints, except as documented. 05/25/25 1328 <Electronically signed by Basil lowe MD> Date _ Basil Harris MD Cosigner Signature: Date CC: ~ Signed [facility] Work Phone: [phone]) 499-833006-24-2025 Procedure note [facility] Medical Records Department [address] [place] [address] Operative Report 05/25/25 1417 MR#: [id number] Acct: [id number] Name: GAYATHRI CORREIA Rep #:[id number] : 1945 79 From: Senait Dick DO PCP: Dr. Daniel Lai MD Status :[facility] Location: [place] [address] Problems Associated Problem List Diagnoses (1) Vaginal mass: (2) Postmenopausal bleeding: Multi Select Codes Urinary/Genital Urinary/Genital CPT Codes: Other Procedure See Report (removal of vaginal cyst and lysis of labial adhesions ) Operative Report (Standard) Operative Information Date of Procedure: 05/25/25 Pre-Operative Diagnosis: labial adhesions, vaginal mass, postmenopausal bleeding Post-Operative Diagnosis: labial adhesions, vaginal mass, postmenopausal bleeding Surgery/Procedure Performed: lysis of labial adhesions and removal of vaginal mass map compiler: No Type of Anesthesia: MAC and Topical Anesth RN Documented Start/Stop Times: Operation Date: 05/25/25 13:15 Case Time Into Pre-Op 05/25/25 11:40 Out of Pre-Op 05/25/25 13:48 Anesthesia Start 05/25/25 13:51 Into Room 05/25/25 13:51 Procedure Start 05/25/25 14:08 Procedure End 05/25/25 14:16 Procedure Start Time: 14:08 Procedure Stop Time: 14:16 Select all DRAINS/GRAFTS/IMPLANTS that apply: None Estimated Blood Loss: 3cc Specimen collected: Yes Description of specimen(s) removed: vaginal cyst Description of surgery: The patient was brought to the operating room and MAC anesthesia was administered. The patient's legs were placed in stirrups. The external genitalia and vagina were prepped and draped in the normal sterile fashion. There was noted to be adhesions of the right labia to the left labia. The base of the perineum was first injected with 1% lidocaine. The labial adhesions werecarefully pulled apart manually. A right angle retractor was placed in the vagina and used as a speculum. A 2 cm vaginal cystwas noted and grasped with an Allis clamp. This was noted to have the consistency of a semifluctuant material. The mass was noted to be adherent to the vaginal cuff by a tiny stalk. The stalk was cauterized using the Bovie cautery after 1% lidocaine was injected. Excellent hemostasis was noted. Thespecimen was passed off for pathology analysis. The labial adhesions were starting to have some oozing and bleeding and Heema blast was applied to this area and pressure was held. Excellent hemostasis was noted at the completion of the procedure. Sponge lap needle counts were correct x 2. Surgical Findings: Labial adhesions and vaginal cyst noted. Complications Complications: No Admit VTE Documentation VTE Present on Admission: Yes VTE Mechan Device Prophylaxis: [facility]TE Pharm Prophylaxis ordered?: Yes 05/25/25 1422 Cosigner Signature (if applicable): CC: Dr. Daniel Lai MD; Dr. Senait Dick DO~ Signed [facility]06-24-2025 Discharge summary [facility] Medical Records Department [address] [place] [id number] Instructions for Home/Discharge Instructions 05/25/25 1332 MR#: [id number] Acct: [id number] Name: GAYATHRI CORREIA Rep #:[id number] : 1945 79 From: Senait Dick DO PCP: Dr. Daniel Lai MD Status :REG [facility] Discharge Instructions Diet Discharge Diet: No restrictions DC O2, CPAP, BIPAP needs Home O2 Discharge instructions: No Dressing / Incision Discharge Activity: Return to Normal Activity Weight Bearing Status: Weight bearing as tolerated Lifting Restrictions: none Additional Activity Instructions:: may shower but no bath for 2 weeks Dressing / Incision Call your doctor if your incision/area has: Sudden Increased Bleeding and Foul Smelling Discharge Call your doctor if you observe: Fever of 101 or Higher, Using more than 1 pad per hour, Shortness of breath, Dizziness, Fainting spells, Chest pain, Calf discomfort and Uncontrolled pain Follow Up Care Test Results: Test results from this visit will be discussed in further detail at your follow- up appointment, if applicable. Discharge Plan Admission Primary Reason for Your Visit: excision of vaginal cyst Attending Provider: Senait Dick Primary Care Provider: Daniel Lai Instructions Print Language: Salvadorean Discharge Orders/Prescriptions Prescriptions: Continued gabapentin 300 mg capsule 300 mg PO BID 30 Days Qty: 90 pyridoxine (vitamin B6) 100 mg tablet 100 mg PO DAILY cholecalciferol (vitamin D3) 50 mcg (2,000 unit) capsule 50 mcg PO BID coenzyme Q10 [Q-Sorb Co Q-10] 100 mg capsule 100 mg PO DAILY calcium carbonate [Calcium 600] 600 mg calcium (1,500 mg) tablet 600 mg PO BID tamoxifen 20 mg tablet 20 mg PO DAILY Qty: 90 3RF escitalopram oxalate 10 mg tablet 10 mg PO QDAY Patient Comments: [NO ORIGINAL SIG] metoprolol tartrate 25 mg tablet 25 mg PO .COMPLEX PRN (Reason: rapid HR) Qty: 10 0RF Rx Instructions: 25 mg orally as needed for rapid HR, do not take more than one a day jiqnordc-ssv-nszo-FA-vit K-lut 1 EACH tablet 1 ea PO DAILY melatonin 3 mg tablet 10 mg PO QHS acetaminophen 500 mg tablet 1,000 mg PO ONCE warfarin 3 mg tablet 3 mg PO .COMPLEX Qty: 90 3RF Protocol: Dose Management Condition: Saturday Dose/Route: 1.5 mg Instruction: 0.5 x 3 mg tablets Condition: Saturday Dose/Route: 3 mg Instruction: 1 x 3 mg tablet Condition: Saturday Dose/Route: 3 mg Instruction: 1 x 3 mg tablet Condition: Saturday Dose/Route: 1.5 mg Instruction: 0.5 x 3 mg tablets Condition: Dose/Route: 1.5 mg Instruction: 0.5 x 3 mg tablets Condition: Saturday Dose/Route: 1.5 mg Instruction: 0.5 x 3 mg tablets Condition: Saturday Dose/Route: 1.5 mg Instruction: 0.5 x 3 mg tablets Protocol Text: Adjustment Start Date: Saturday02/24/25 INR Value: 2.3 INR Date: 02/24/25 Recheck Date: 03/26/25 Patient Comments: PT TO STOP PER DR. EASTMAN ORDERS PRIOR TO PROCEDURE Rx Instructions: 3 mg orally Every Saturday and Saturday: take 1/2 tablet all other days of the week OR as directed. Please give extra tablets for PRN dose changes. furosemide 40 mg tablet 40 mg PO DAILY Qty: 90 3RF metoprolol succinate 25 mg tablet extended release 24 hr 25 mg PO .COMPLEX Qty: 180 3RF Rx Instructions: 25 mg PO daily, may take one extra tablet daily for BP > 140 systolic or HR >110.; losartan 100 mg tablet 100 mg PO DAILY Qty: 90 3RF atorvastatin 10 mg tablet 10 mg PO DAILY Qty: 90 3RF Referrals / Follow Up: Daniel Lai MD [Primary Care Provider] - Disposition Disposition (needs filled in before D/C Order can be placed): Home, Self Care 05/25/25 1333Jecarmen Dick DO CC: Dr. Daniel Lai MD ~ Signed [facility]06-24-2025 History and physical note [facility] Medical Records Department [address] [place] [address] History & Physical Exam 05/25/25 1331 MR#: [id number] Acct: [id number] Name: GAYATHRI CORREIA Rep #:[id number] : 1945 79 From: Senait Dick DO PCP: Dr. Daniel Lai MD Status :[facility] Location: [place] [address] History and Physical Date of Admission: 05/25/25 Intake Vital Signs 04/06/2508:35 04/30/2513:50 Height 4 ft 10 in 4 ft 10 in Weight: 198 lb 8 oz 197 lb BMI 41.5 41.1 BP 104/71 101/69 Intake Visit Reasons: labial lysis of adhesions remove vag. mass Early Childhood Required: No Is patient in pain?: No Allergies No Known Allergies Allergy (Verified 04/30/25 13:53) Medications ?Medication ?Instructions ?Recorded ?Confirmed ?Type oppiwvtp-ucav-rbuy 8 mg-folic 400 1 ea PO DAILY supplement 03/02/17 History mcg-K 50 mcg-lutein 300 mcg tablet gabapentin 300 mg capsule 300 mg PO BID pain 30 days #90 caps 12/0304/30/25 History coenzyme Q10 100 mg capsule 100 mg PO DAILY 08/09/21 04/30/25 Histor y (Q-Sorb Co Q-10) melatonin 3 mg tablet 10 mg PO QHS sleep 02/07/22 04/30/25 His tory acetaminophen 500 mg tablet 1,000 mg PO ONCE 11/09/22 04/30/25 Histo ry calcium carbonate (Calcium 600) 600 mg PO BID 11/09/22 04/30/25 History cholecalciferol (vitamin D3) 50 50 mcg PO BID 11/09/22 04/30/25 History mcg (2,000 unit) capsule pyridoxine (vitamin B6) 100 mg 100 mg PO DAILY supplement 11/09/2204/03 History tablet tamoxifen 20 mg tablet 20 mg PO DAILY #90 TABLETS 09/14/2404/03 Rx escitalopram oxalate 10 mg tablet 10 mg PO QDAY 02/26/25 04/30/25 History warfarin 3 mg tablet 3 mg PO .COMPLEX #90 TABLETS 03/08/25 Rx furosemide 40 mg tablet 40 mg PO DAILY #90 tabs 03/10/25 5 Rx metoprolol succinate 25 mg 25 mg PO .COMPLEX afib #180 tabs 5 04/30/25 Rx tablet,extended release 24 hr atorvastatin 10 mg tablet 10 mg PO DAILY #90 tabs 03/22/25 5 Rx losartan 100 mg tablet 100 mg PO DAILY #90 tabs 03/22/25 Rx Is last menstrual period known: No Post menopausal: Yes Patient : No : No PFSH Medical History Wears glasses Post-menopausal Cancer Depression History of steroid therapy Arthritis Loss of consciousness History of IBS Non-smoker CPAP (continuous positive airway pressure) dependence Sleep apnea Shortness of breath on exertion Chronic cough History of echocardiogram History of stress test Hypertension History of irregular heartbeat Cardiology follow-up encounter History of atrial fibrillation History of trigger finger Osteoporosis Sleep apnea with use of continuous positive airway pressure (CPAP) Cataract, left eye Irritable bowel Wrist fracture, left Lung nodule, multiple Encounter for education Breast cancer, right breast Malignant neoplasm of central portion of right female breast Paroxysmal atrial flutter Spinal stenosis 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 Paroxysmal atrial fibrillation Obesity Type 2 diabetes mellitus Surgical History Hx of cataract extraction Status post right breast lumpectomy S/P right breast biopsy (03/05/19) S/P shoulder surgery H/O dilation and curettage H/O hand surgery S/P carpal tunnel release h/o breast lumpectomy H/O: hysterectomy H/O total knee replacement History of tonsillectomy History of back surgery History of radiofrequency ablation procedure for cardiac arrhythmia (03/20/11) History of gastric bypass Family History Sister CVA (cerebral vascular accident)Father CAD (coronary artery disease) HypertensionMother Hypertension CAD (coronary artery disease) Social History Smoking Status: Never smoker Electronic Cigarette Use: not used second hand exposure: Yes (Childhood ) alcohol intake: current alcohol intake frequency: holidays/special occasions only Alcohol type: wine substance use type: does not use additional social history: HPI labial lysis of adhesions remove vag. mass Details: GAYATHRI CORREIA is a 79 year old who presents for a pre op evaluation for a labial lysis of adhesions and removal of vaginal mass. Her pcp gave instructionsto proceed with surgery but to manage the coumadin as I feel appropriate. Surgery is scheduled for 05/11/25 however patient states that she wouldreally like to go [facility] on the and go to a camp ground where she will swimand be out doors. I have explained to her that she is at risk for labial hematoma after these kinds of procedures, especially when on coumadin and I needher to be limited activity for a few days. She is requesting we move the surgeryto 05/25 instead. She also states that Dr. Epstein may have better recommendationsabout when to stop and restart her coumadin. History 3 Elective abortions Hx Para 3 Spontaneous abortions Hx # Term Pregnancies Ectopic pregnancies Hx # Pregnancies Multiple births # of living children Past Pregnancies Del. Date Name GA/Weeks Outcome Route Bth Weight Gen Labor Lgth Anesthesia Del Locatn Provider FOB Unknown Sergey Unknown Anuel Unknown Akiko ROS Const ROS Unobtainable: All systems reviewed & are unremarkable except as noted in H Resp Resp: Reports system reviewed and no additional complaints, except as documented; Denies cough GI GI: Reports as per HPI Psych Psych: Reports system reviewed and no additional complaints, except as documented Exam Const General: cooperative, healthy appearing, comfortable and no acute distress Resp Effort & Inspection: normal respiratory effort Skin General: no rashes or lesions noted Psych Appearance: grossly normal Speech and Movement: speech and movement normal Coding Level of Care Code Off vis,est,level 4 Diagnoses Vaginal mass N89.8 Postmenopausal bleeding N95.0 Assessment and Plan Assessment and Plan (1) Vaginal mass: Status: Acute (2) Postmenopausal bleeding: Status: Acute Plan After discussing the patient's diagnosis and treatment plan options, patient wishes to proceed withsurgical management. I have discussed with the patient the risks, benefits, and alternatives of theprocedure which include but are notlimited to risks of anesthesia, bleeding, infection, possible damage to bowel, bladder, or surrounding vasculature which could lead to additional surgery to evaluate any complications. Patient agrees to procedure and wishes to proceed. ACOG/uptodate references given for additional information regarding procedure. plan for lysis of labia adhesions and removal of vaginal mass that is likely causing postmenopausalbleeding. will need estrogen cream after surgery and willneed to contact Dr. Epstein about her coumadin. Will rescheduled to 05/25/25 05/25/25 1332 Cosigner Signature (if applicable): CC: Dr. Daniel Lai MD; Dr. Senait Dick DO~ Signed [facility]06-24-2025 [facility] Medical Records Department [address] [place] [address] History Physical Exam 05/25/25 1331 MR#: [id number] Acct: [id number] Name: GAYATHRI CORREIA Rep #: [id number] : 1945 79 From: Senait Dick DO PCP: Dr. Daniel Lai MD Status:[facility] Location: [place] [address] History and Physical Date of Admission: 05/25/25 Intake Vital Signs 04/06/2508:35 04/30/2513:50 Height 4 ft 10 in 4 ft 10 in Weight: 198 lb 8 oz 197 lb BMI 41.5 41.1 BP 104/71 101/69 Intake Visit Reasons: labial lysis of adhesions remove vag. mass Early Childhood Required: No Is patient in pain?: No Allergies No Known Allergies Allergy (Verified 04/30/25 13:53) Medications ???Medication ???Instructions ???Recorded ???Confirmed ???Type npglcuox-iupq-oktz 8 mg-folic 400 1 ea PO DAILY supplement 03/02/17 04/30/25 History mcg-K 50 mcg-lutein 300 mcg tablet gabapentin 300 mg capsule 300 mg PO BID pain 30 days #90 caps 12/24/1804/30 History coenzyme Q10 100 mg capsule 100 mg PO DAILY 08/09/21 04/30/25 History (Q-Sorb Co Q-10) melatonin 3 mg tablet 10 mg PO QHS sleep 02/07/22 04/30/25 History acetaminophen 500 mg tablet 1,000 mg PO ONCE 11/09/22 04/30/25 History calcium carbonate (Calcium 600) 600 mg PO BID 11/09/22 04/30/25 History cholecalciferol (vitamin D3) 50 50 mcg PO BID 11/09/22 04/30/25 History mcg (2,000 unit) capsule pyridoxine (vitamin B6) 100 mg 100 mg PO DAILY supplement 11/09/22 04/30/25 Histo ry tablet tamoxifen 20 mg tablet 20 mg PO DAILY #90 TABLETS 09/14/24 04/30/25 Rx escitalopram oxalate 10 mg tablet 10 mg PO QDAY 02/26/25 04/30/25 History warfarin 3 mg tablet 3 mg PO .COMPLEX #90 TABLETS 03/08/25 04/30/25 Rx furosemide 40 mg tablet 40 mg PO DAILY #90 tabs 03/10/25 04/30/25 Rx metoprolol succinate 25 mg 25 mg PO .COMPLEX afib #180 tabs 03/15/25 04/30/25 Rx tablet,extended release 24 hr atorvastatin 10 mg tablet 10 mg PO DAILY #90 tabs 03/22/25 04/30/25 Rx losartan 100 mg tablet 100 mg PO DAILY #90 tabs 03/22/25 04/30/25 Rx Is last menstrual period known: No Post menopausal: Yes Patient : No : No PFSH Medical History Wears glasses Post-menopausal Cancer Depression History of steroid therapy Arthritis Loss of consciousness History of IBS Non-smoker CPAP (continuous positive airway pressure) dependence Sleep apnea Shortness of breath on exertion Chronic cough History of echocardiogram History of stress test Hypertension History of irregular heartbeat Cardiology follow-up encounter History of atrial fibrillation History of trigger finger Osteoporosis Sleep apnea with use of continuous positive airway pressure (CPAP) Cataract, left eye Irritable bowel Wrist fracture, left Lung nodule, multiple Encounter for education Breast cancer, right breast Malignant neoplasm of central portion of right female breast Paroxysmal atrial flutter Spinal stenosis 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 Paroxysmal atrial fibrillation Obesity Type 2 diabetes mellitus Surgical History Hx of cataract extraction Status post right breast lumpectomy S/P right breast biopsy (03/05/19) S/P shoulder surgery H/O dilation and curettage H/O hand surgery S/P carpal tunnel release h/o breast lumpectomy H/O: hysterectomy H/O total knee replacement History of tonsillectomy History of back surgery History of radiofrequency ablation procedure for cardiac arrhythmia (03/20/11) History of gastric bypass Family History Sister CVA (cerebral vascular accident)Father CAD (coronary artery disease) HypertensionMother Hypertension CAD (coronary artery disease) Social History Smoking Status: Never smoker Electronic Cigarette Use: not used second hand exposure: Yes (Childhood ) alcohol intake: current alcohol intake frequency: holidays/special occasions only Alcohol type: wine substance use type: does not use additional social history: HPI labial lysis of adhesions remove vag. mass Details: GAYATHRI CORREIA is a 79 year old who presents for a pre op evaluation for a labial lysis of adhesions and removal of vaginal mass. Her pcp gave instructions to proceed with surgery but to manage the coumadin as I feel appropriate. Surgery is scheduled for 05/11/25 however patient states that she would really like to go to [facility] on the and go to a camp ground where she will swim and be out doors. I have explained to her that she is at risk for labial hematoma after these kinds of procedures, especially when on coum (more content not included)...[facility]06-24-2025 Consult note [facility] Medical Records Department [address] [place] [address] Pre-Anesthesia Evaluation 05/25/25 1317 MR#: [id number] Acct: [id number] Name: GAYATHRI CORREIA Rep #:[id number] : 1945 79 From: Basil Harris MD PCP: Dr. Daniel Lai MD Status :REG SDC Y Race: C Location: [place] [address] ASA Classification* ASA Classification ASA Classification: 3 Assessment & Plan Anesthesia* Anesthesia Assessment Anesthesia Assessment: Discussed sedation and/or anesthesia options, risks, benefits, and alternatives with patient/parents/legal guardian/POA. Questions invited. The patient/parents/legal guardian/POA seems to understand and agrees to proceedwith anesthesia plan. Reviewed the physical assessment, medical history, allergy history and patient home medications list prior to surgery/procedure/anesthetic and documented any changes. Performed airway and anesthesia risk assessments. Anesthesia Type Anesthesia Type: MAC History Source History Obtained from:: Patient and Chart Anesthesia Focused Assessment* Temperature: 98.2 F Pulse Rate: 65 Blood Pressure: 145/85 Respiratory Rate: 18 Pulse Ox: 96 Oxygen Delivery Method: Room Air Airway Assessment Mouth opens: >3 cm Mallampati Score: II Teeth Condition: Caps/Crowns (Patient has several crowns. They are all tight. Patient has a upper right bridge. It is permanent.) Neck Range of motion (ROM): Full ROM Labs Anesthesia Preop lab: CBC WBC 5.4 K/mm3 (4.4-11.0) 05/01/25 15:00 05/01/25 RBC 3.60 M/mm3 (4.2-5.4) L 05/01/25 15:00 05/01/25 Hgb 11.1 g/dL (12.0-15.0) L 05/01/25 15: 5 Hct 34.8 % (37-47) L 05/01/25 15:00 05/01/25 Plt Count 210 K/mm3 (150-450) 05/01/25 15:00 05/01/25 CHEMISTRY Potassium 4.4 mmol/L (3.3-5.1) 05/01/25 15:00 05/01/25 Sodium 142 mmol/L (133-145) 05/01/25 15:00 05/01/25 Magnesium 2.1 mg/dL (1.6-2.6) 09/14/24 10:22 09/14/24 Phosphorus 2.6 mg/dL (2.5-4.9) 09/14/24 10:22 09/14/24 BUN 16 mg/dL (4-19) 05/01/25 15:00 05/01/25 Creatinine 1.26 mg/dL (0.70-1.20) H 05/01/25 15:00 Glucose 125 mg/dL (70-99) H 05/01/25 15:00 05/01/25 TSH 2.07 uIU/mL (0.358-3.74) 07/30/23 11:36 COAG PT 27.5 SECONDS (11.7-14.9) H 05/01/25 15:00 04/03 12/26 INR 2.5 01/14/25 09:25 01/14/25 Pre-Assessment Diagnosis/Proposed Procedure Planned Operative Procedure(s): Labial Lysis of Adhesions, removal of Vaginal Mass Anesthesia History Anesthesia History - booking police officer: Anesthesia History - booking police officer Hx Hospitalization No 04/28/25 13:21 Any Problems With Anesthesia Yes: sometimes nausea 04/28/25 13:21 Cholinesterase deficiency No 04/28/25 13:21 You/Your Family Experience No 04/28/25 13:21 fever (hyperthermia) with Relationship Recent Exposure to Contagious No 05/25/25 12:03 Disease Does patient have nerve No 04/28/25 13:21 stimulator Patient instructed to have device shut off --Does patient have Pacemaker No 05/25/25 12:03 or ICD? When Was Last Pacemaker Check QUESTION #4 FULL TEXT: You/Your Family Experience fever (hyperthermia) with Anesthesia Last Oral Intake Last Oral intake: Last Oral Intake NPO since 21:00 05/25/25 12:03 Meds taken in AM with sips of Yes 05/25/25 12:03 water? Meds patient instructed to take am of surgery Any additional information?: Yes Meds taken in AM with sips of water?: Yes PONV PONV - booking police officer: PONV - booking police officer Female Yes 04/28/25 13:21 HX of Motion Sickness No 04/28/25 13:21 HX of N/V After Surgery No 04/28/25 13:21 Non-Smoker Yes 04/28/25 13:21 Duration of Surgery greater No 04/28/25 13:21 than 60 minutes Number of Risk Factors 2 04/28/25 13:21 PONV Score Moderate Risk 04/28/25 13:21 Height & Weight Height & Weight: Anesthesia: Height & Weight Height 4 ft 10 in 05/25/25 12:03 Weight: 89.6 kg 05/25/25 12:03 Body Mass Index (BMI) 41.3 05/25/25 12:03 Respiratory Assessment Respiratory Assessment - booking police officer: Respiratory Tract Infection Hx - booking police officer Hx Respiratory Tract Infection No 04/28/25 13:21 STOP Sleep Apnea STOP Sleep Apnea - booking police officer: STOP Sleep Apnea - booking police officer Hx Hypertension Yes: states controlled with 04/28/25 13:21 med Hx Sleep Apnea Yes 04/28/25 13:21 CPAP Yes 04/28/25 13:21 BIPAP No 04/28/25 13:21 Do you snore loudly (louder than talking or can be heard Do you often feel tired/ fatigued/ sleepy during daytime? Has anyone observed you stop breathing during sleep? STOP Results Positive 04/28/25 13:21 QUESTION #5 FULL TEXT : Do you snore loudly (louder than talking or can be heard through closeddoors)? Tobacco Use History Tobacco Use History - booking police officer: Tobacco Use History - booking police officer Tobacco Use Smoking Status Never smoker 05/01/25 14:57 Hx Tobacco Use No 04/28/25 13:21 Years Smoking Packs Smoked per Day Smoking Cessation Date was within the last 15 years Hx Smoking Cessation Date Hx Smoking Cessation Counseling Hematologic Medial History Hematologic Hx - booking police officer: Hematologic Medical Hx - opto mechanical technician Hx of Blood Transfusion No 04/28/25 13:21 Hx of Transfusion in last 3 No 04/28/25 13:21 Months Date of Last Transfusion (if within last 3 months) Ever experience any problems No 04/28/25 13:21 with transfusion(s)? Specify any problems Hx of Preganancy in last 3 No 04/28/25 13:21 Months Nurse Filling Out Transfusion VCHRISTIN 04/28/25 13:21 & Questions: Date: 04/28/25 04/28/25 13:21 Time: 13:22 04/28/25 13:21 Patient unable to answer at this time (ie. confused, unrespo /Reproduction History /Reproductive History - booking police officer: /Reproductive Hx- booking police officer Hx Now No 04/28/25 13:21 Gestational Age (in weeks): EDC: Hx Hx Para Hx Section SAB No 04/30/25 13:53 Active Medications Active Medications: Current Medications Generic Name Dose Route Start Last Admin Trade Name Freq PRN Reason Stop Dose Admin Lactated Ringer's 1,000 mls @ 15 mls/hr 05/25/25 11:45 05/25/25 12:15 IV 15 mls/hr .Q48H SHILOH Administration PFSH Medical History Dilated aortic root Wears glasses Post-menopausal Cancer Depression History of steroid therapy Arthritis Loss of consciousness History of IBS Non-smoker CPAP (continuous positive airway pressure) dependence Sleep apnea Shortness of breath on exertion Chronic cough History of echocardiogram History of stress test Hypertension History of irregular heartbeat Cardiology follow-up encounter History of atrial fibrillation History of trigger finger Osteoporosis Sleep apnea with use of continuous positive airway pressure (CPAP) Cataract, left eye Irritable bowel Wrist fracture, left Lung nodule, multiple Encounter for education Breast cancer, right breast Malignant neoplasm of central portion of right female breast Paroxysmal atrial flutter Spinal stenosis Essential (primary) hypertension intermediate (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 of anticoagulants Paroxysmal atrial fibrillation Obesity Type 2 diabetes mellitus Home Medications ?Medication ?Instructions ?Recorded ?Last Taken ?Type lqoirhsm-nmrg-wpxv 8 mg-folic 400 1 ea PO DAILY supple ment 03/02/17 05/24/25 History mcg-K 50 mcg-lutein 300 mcg tablet gabapentin 300 mg capsule 300 mg PO BID pain 30 days # 90 caps 12/24/18 05/25/25 History coenzyme Q10 100 mg capsule 100 mg PO DAILY 08/09/21 0 05/24/25 History (Q-Sorb Co Q-10) melatonin 3 mg tablet 10 mg PO QHS sleep 02/07/22 05/24/25 History acetaminophen 500 mg tablet 1,000 mg PO ONCE 11/09/22 05/24/25 History calcium carbonate (Calcium 600) 600 mg PO BID 11/09/22 05/24/25 History cholecalciferol (vitamin D3) 50 50 mcg PO BID 11/09/22 05/24/25 History mcg (2,000 unit) capsule pyridoxine (vitamin B6) 100 mg 100 mg PO DAILY supplem ent 11/09/22 05/24/25 History tablet tamoxifen 20 mg tablet 20 mg PO DAILY #90 TABLETS 1 05/24/25 Rx escitalopram oxalate 10 mg tablet 10 mg PO QDAY 05/24/25 History warfarin 3 mg tablet 3 mg PO .COMPLEX #90 TABLETS 03/08/25 05/20/25 Rx furosemide 40 mg tablet 40 mg PO DAILY #90 tabs 08/2605/24/25 Rx metoprolol succinate 25 mg 25 mg PO .COMPLEX afib #180 tabs 03/15/25 05/25/25 Rx tablet,extended release 24 hr atorvastatin 10 mg tablet 10 mg PO DAILY #90 tabs 03/0305/24/25 Rx losartan 100 mg tablet 100 mg PO DAILY #90 tabs 05/25/25 Rx metoprolol tartrate 25 mg tablet 25 mg PO .COMPLEX PRN rapid HR #10 05/18/25 Unknown Rx tabs Allergy/AdvReac Type Severity Reaction Status Date / Time No Known Allergies Allergy Verified 05/25/25 12:01 Family History Sister CVA (cerebral vascular accident) Father CAD (coronary artery disease) Hypertension Mother Hypertension CAD (coronary artery disease) Surgical History Hx of cataract extraction Status post right breast lumpectomy S/P right breast biopsy (03/05/19) S/P shoulder surgery H/O dilation and curettage H/O hand surgery S/P carpal tunnel release h/o breast lumpectomy H/O: hysterectomy H/O total knee replacement History of tonsillectomy History of back surgery History of radiofrequency ablation procedure for cardiac arrhythmia (03/20/11) History of gastric bypass Social History Smoking Status: Never smoker Electronic Cigarette Use: not used second hand exposure: Yes (Childhood ) alcohol intake: current alcohol intake frequency: holidays/special occasions only Alcohol type: wine substance use type: does not use additional social history: Review of Systems (Anesthesia) ROS Narrative System reviewed and no additional complaints, except as documented. 05/25/25 1328 la > Date _ Basil Harris MD Cosigner Signature: Date CC: ~ Signed [facility]06-20-2025 Procedure notey 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: REG CLI Location: [facility] Date: Sex: F C PSN 6 Minute Walk Test 6 Minute Walk Test 6 Minute Walk Test: 6 Minute Walk Test PSN:6-Minute Walk Test Start: 05/18/25 12:35 Freq: Status: Active Protocol: RESP.6MINW Document 05/18/25 12:04 WLB (Rec: 05/18/25 12:38 B [id number]) 6 Minute Walk Test Assistive device Cane used: Pre-test Oxygen Delivery Room Air Method Pulse Ox (%) 95 Pulse Rate (60-100 74 beats/min) Dyspnea Bhavna Scale ( 1 0-10) Exertion Bhavna Scale 6 (6-20) 1st minute Oxygen Delivery Room Air Method Pulse Ox (%) 89 Pulse Rate (60-100 82 beats/min) 2nd minute Oxygen Delivery Room Air Method Pulse Ox (%) 92 Pulse Rate (60-100 83 beats/min) 3rd minute Oxygen Delivery Room Air Method Pulse Ox (%) 92 Pulse Rate (60-100 87 beats/min) 4th minute Oxygen Delivery Room Air Method Pulse Ox (%) 91 Pulse Rate (60-100 86 beats/min) Reported Symptoms Increased Work of Breathing 5th minute Oxygen Delivery Room Air Method Pulse Ox (%) 91 Pulse Rate (60-100 90 beats/min) Reported Symptoms Increased Work of Breathing 6th minute Oxygen Delivery Room Air Method Pulse Ox (%) 89 Pulse Rate (60-100 91 beats/min) Reported Symptoms Increased Work of Breathing Post-test Oxygen Delivery Room Air Method Pulse Ox (%) 93 Pulse Rate (60-100 91 beats/min) Full Laps Walked 7 Partial Lap, Number 0 of Tiles Walked Total Distance 413 Walked (ft) Interpretation Interpretation: The patient ambulated 413 feet over the course of 6 minutes beginning on room air with use of a cane. Pretesting oxygen saturation was noted to be 95% on room air. With ambulation, the ana oxygen saturation was 89%. This represents a significant exertional oxygen desaturation, consistent with a pulmonary limitation to exercise tolerance. Recommendations Recommendations: There is no indication for the use of supplemental oxygen at this time. However, close interval follow-up is recommended, given the degree of oxygen desaturation noted during this study. 05/21/25 1045 O> Date _ Mauro Parker DO CC: ~ Date Dictated: 05/21/25 1045 Date Transcribed: 05/21/251044 Final Inspector Movement Assembly: Dr. Mauro Parker, DO Signed [facility]05-31-2025 Radiology Diagnostic study note [facility] Imaging Services [address] [place] [address] Chest PA and Lateral MR#: [id number] Acct: [id number] Name: GAYATHRI CORREIA Rep #: [id number] : 1945 F 79 From: Hilda Samson MD PCP: Dr. Daniel Lai MD Status: [facility] ER Study:Chest PA and Lateral Date of Exam: 05/01/25 Exam# [id number] Ordering Dr: Glauthie r,Aisha PA EXAM: XR Chest, 2 Views CLINICAL INDICATION: CHEST PAIN TECHNIQUE: Frontal and lateral views of the chest. COMPARISON: No relevant prior studies available. FINDINGS: LUNGS AND PLEURAL SPACES: Unremarkable. No consolidation. No pneumothorax. HEART: Unremarkable. No cardiomegaly. MEDIASTINUM: Unremarkable. Normal mediastinal contour. BONES/JOINTS: Unremarkable. No acute fracture. RAD/Chest PA and Lateral IMPRESSION: No acute cardiopulmonary process. Reading Location: [id number] CC: Dr. Daniel Lai MD; JOSHUA Francis ~ Final Inspector Movement Assembly: Signed [facility]05-30-2025 Evaluation note* Diagnosis Onset Date Resolution Status Admit Date Postmenopausal bleeding acute M ay 2024 1:40pm Vaginal mass acute April 30 1:40pm Dilated aortic root acute May 18, 2025 10:49am Hyperlipidemia acute May 18, 2025 10:49am Essential (primary) hypertension chronic May 18, 2025 10:49am Paroxysmal atrial fibrillation chron ic May 18, 2025 10:49am Postmenopausal bleeding acute J une 2024 11:28am Vaginal mass acute May 25, 11:28am Vaginal mass acute June 07 2:35pm Constipation acute August 162024 9:13am [facility] Urinary retention acute [facility] er 2024 9:13am [facility] Work Phone: 1(491) 683-209805-30-2025 Hospital Discharge instructions Additional Instructions Your testing here is normal. I am not sure what caused your episode of palpitations last night but you may have gone into A-fib and now you are in normal sinus rhythm. 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 Return if symptoms worsen.[facility] Work Phone: 1(136) 903-416105-06-2025 Discharge summary Author Murray Quintana [facility] Note Date/Time April 06, 2025 10:52a m [facility] Physical Therapy [address] [place] [address] / REHABILITATION SERVICES DISCHARGE SUMMARY MR#: [id number] Acct: [id number] Name: GAYATHRI CORREIA Rep #: [id number] : 1945 79 From: Cert. MARYANN Terrell, [facility] Referring Dr.: Dr. Daniel Lai MD Stat us: REG RCR Insurance: [employer] MEDICARE PPO SELF PAY INSURANCE Discharge Summary D/C summary: It has been my pleasure to treat GYAATHRI CORREIA referred by Dr. Daniel Lai MD, with the diagnosis of LUMBAR DDD WITH IMPINGEMENT RIGHT L5 for a total of 9 visit(s). Discharge Date: 04/06/25 Please see the following information for a summary of their discharge status. Subjective Subjective: Patient states happy with progress Ready with d/c Pain Right Back: Pain Intensity (Out of 10): 2 Right Lower Extremity: Pain Intensity (Out of 10): 2 Overall Improvement % Improvement: 90 Objective Objective/Function: POSTURE: mild forward posture hips/knees flexed GAIT: reciprocal pattern with 2 point gait antalgic gait with quad cane (dont use cane at home) PALPATION: render right SI /LS NEURO: denies paresthesia/tingling, reflexes L3-4 ,L4-5,L5- S1 1/3 LUMBAR ROM: flexion mod loss ,extension severe loss.side glides mod loss MMT: quads/hams 4/5 ,ankle 4-/5 ,ankle 4/5 FLEXABILITY: hamstrings mod tight Goals Goal 1:: Patient to be I with HEP for back Goal Progress: Goal Met Goal 2:: Patient to improve lumbar ROM for function of recovery to put on shoes Goal Progress: Goal Met Goal 3:: Patient to improve back oswestry score by 5 points to improve QOL and function Goal Progress: Goal Met Goal 4:: Patient to ambulate further distances with less pain and improvement ADLS by 50% Goal 5:: Patient to demonstrate 50% improvement with less pain and function Goal Progress: Goal Met Plan Plan: D/C TO HEP D/C Information Discharge Comments: d/c home ex's d/c sentence: If there are questions or concerns regarding this patient's physical therapy, please feel free to call me at [phone]. Thank you for the referral of thispatient. Sincerely, Murray Quintana PT, Cert MARYANN, OCS Balance/Gait/Functional tests Balance/Special Test Scores Oswestry Low Back Score: 13 Improvement % Improvement: 90 <Electronically signed by Cert. MARYANN Rasheed PT, ANETTE> 04/06/25 1052 CC: Dr. Daniel Lai MD ~ JLA Signed [facility] Work Phone: 1(364) 960-713305-06-2025 Discharge summary [facility] Physical Therapy [facility] [address] [place] [address] / REHABILITATION SERVICES DISCHARGE SUMMARY MR#: [id number] Acct: [id number] Name: GAYATHRI CORREIA Rep #: [id number] : 1945 79 From: Cert. MARYANN Terrell, ANETTE Referring Dr.: Dr. Daniel Lai MD Stat us: REG RCR Insurance: [employer] MED[employer] PPO SELF PAY INSURANCE Discharge Summary D/C summary: It has been my pleasure to treat GAYATHRI CORREIA referred by Dr. Daniel Lai MD, with the diagnosis of LUMBAR DDD WITH IMPINGEMENT RIGHT L5 for a total of 9 visit(s). Discharge Date: 04/06/25 Please see the following information for a summary of their discharge status. Subjective Subjective: Patient states happy with progress Ready with d/c Pain Right Back: Pain Intensity (Out of 10): 2 Right Lower Extremity: Pain Intensity (Out of 10): 2 Overall Improvement % Improvement: 90 Objective Objective/Function: POSTURE: mild forward posture hips/knees flexed GAIT: reciprocal pattern with 2 point gait antalgic gait with quad cane (dont use cane at home) PALPATION: render right SI /LS NEURO: denies paresthesia/tingling, reflexes L3-4 ,L4-5,L5- S1 1/3 LUMBAR ROM: flexion mod loss ,extension severe loss.side glides mod loss MMT: quads/hams 4/5 ,ankle 4-/5 ,ankle 4/5 FLEXABILITY: hamstrings mod tight Goals Goal 1:: Patient to be I with HEP for back Goal Progress: Goal Met Goal 2:: Patient to improve lumbar ROM for function of recovery to put on shoes Goal Progress: Goal Met Goal 3:: Patient to improve back oswestry score by 5 points to improve QOL and function Goal Progress: Goal Met Goal 4:: Patient to ambulate further distances with less pain and improvement ADLS by 50% Goal 5:: Patient to demonstrate 50% improvement with less pain and function Goal Progress: Goal Met Plan Plan: D/C TO HEP D/C Information Discharge Comments: d/c home ex's d/c sentence: If there are questions or concerns regarding this patient's physical therapy, please feel free to call me at [phone]. Thank you for the referral of thispatient. Sincerely, Murray Quintana, PT, Cert MDT, OCS Balance/Gait/Functional tests Balance/Special Test Scores Oswestry Low Back Score: 13 Improvement % Improvement: 90 04/06/25 1052 CC: Dr. Daniel Lai MD ~ JLA Signed [facility]04-21-2025 Evaluation note* Diagnosis Onset Date Resolution Status Admit Date History of right breast cancer chron ic March 22, 2025 12:25pm Lung nodule, multiple chronic Apr 2024 12:25pm Osteoporosis chronic March 22, 2025 12:25pm Breast cancer, right breast chronic March 22, 2025 12:45pm Lung nodule, multiple chronic Apr 2024 12:45pm Encounter for education inactive A pril 2024 12:45pm Postmenopausal bleeding acute M 2024 8:25am Vaginal mass acute April 06 8:25am Breast cancer, right breast chronic April 06, 2025 8:25am Essential (primary) hypertension chr onic April 06, 2025 8:25am History of right breast cancer chron ic April 06, 2025 8:25am 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 April 06, 2025 8: 25am Lung nodule, multiple chronic April 06, 2025 8:25am TERRY (obstructive sleep apnea) chroni c April 06, 2025 8:25am Osteoporosis chronic April 06 8:25am Paroxysmal atrial fibrillation chron ic April 06, 2025 8:25am Secondary pulmonary hypertension chr onic May 6th, 2025 8:25am Paroxysmal atrial flutter resolved April 06, 2025 8:25am Postmenopausal bleeding acute M ay 2024 1:40pm Vaginal mass acute April 30 1:40pm Dilated aortic root acute May 18, 2025 10:49am Hyperlipidemia acute May 18, 2025 10:49am Essential (primary) hypertension chr onic May 18, 2025 10:49am Paroxysmal atrial fibrillation chron ic May 18, 2025 10:49am Postmenopausal bleeding acute J une 2024 11:28am Vaginal mass acute May 25, 2 025 11:28am Vaginal mass acute June 07 2:35pm [facility] Work Phone: 1(511) 680-696303-28-2025 Evaluation note* Diagnosis Onset Date Resolution Status Admit Date Obesity chronic February 26 1:58pm TERRY (obstructive sleep apnea) chroni c February 26, 2025 1:58pm Secondary pulmonary hypertension chronic February 26, 2025 1:58pm [facility] Work Phone: 1(711) 792-992903-28-2025 Evaluation note* Diagnosis Onset Date Resolution Status Admit Date Obesity chronic February 26 1:58pm TERRY (obstructive sleep apnea) chroni c February 26, 2025 1:58pm Secondary pulmonary hypertension chr onic February 26, 2025 1:58pm History of right breast cancer chron ic March 22, 2025 12:25pm Lung nodule, multiple chronic Apr 2024 12:25pm Osteoporosis chronic March 22, 2025 12:25pm Breast cancer, right breast chronic March 22, 2025 12:45pm Lung nodule, multiple chronic Apr 2024 12:45pm Encounter for education inactive A pril 2024 12:45pm Postmenopausal bleeding acute M ay 2024 8:25am Vaginal mass acute April 06 8:25am Breast cancer, right breast chronic April 06, 2025 8:25am Essential (primary) hypertension chr onic April 06, 2025 8:25am History of right breast cancer chron ic April 06, 2025 8:25am 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 Work Phone: 1(419) 270-674703-28-2025 Evaluation note* Diagnosis Onset Date Resolution Status Admit Date Obesity chronic February 26 1:58pm TERRY (obstructive sleep apnea) chroni c February 26, 2025 1:58pm Secondary pulmonary hypertension chr onic February 26, 2025 1:58pm History of right breast cancer chron ic March 22, 2025 12:25pm Lung nodule, multiple chronic Apr il 2024 12:25pm Osteoporosis chronic March 22, 2025 12:25pm Breast cancer, right breast chronic March 22, 2025 12:45pm Lung nodule, multiple chronic Apr il 2024 12:45pm Encounter for education inactive A pril 2024 12:45pm Postmenopausal bleeding acute M ay 2024 8:25am Vaginal mass acute April 06 8:25am Breast cancer, right breast chronic April 06, 2025 8:25am Essential (primary) hypertension chr onic April 06, 2025 8:25am History of right breast cancer chron ic April 06, 2025 8:25am 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 Work Phone: 1(651) 101-874403-28-2025 Evaluation note* Diagnosis Onset Date Resolution Status Admit Date Obesity chronic February 26 1:58pm TERRY (obstructive sleep apnea) chroni c February 26, 2025 1:58pm Secondary pulmonary hypertension chr onic February 26, 2025 1:58pm History of right breast cancer chron ic March 22, 2025 12:25pm Lung nodule, multiple chronic Apr il 2024 12:25pm Osteoporosis chronic March 22, 2025 12:25pm Breast cancer, right breast chronic March 22, 2025 12:45pm Lung nodule, multiple chronic Apr il 2024 12:45pm Encounter for education inactive A pril 2024 12:45pm Postmenopausal bleeding acute M ay 2024 8:25am Vaginal mass acute April 06 8:25am Breast cancer, right breast chronic April 06, 2025 8:25am Essential (primary) hypertension chr onic April 06, 2025 8:25am History of right breast cancer chron ic April 06, 2025 8:25am 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 April 06, 2025 8: 25am Lung nodule, multiple chronic April 06, 2025 8:25am TERRY (obstructive sleep apnea) chroni c April 06, 2025 8:25am Osteoporosis chronic April 06 8:25am Paroxysmal atrial fibrillation chron ic April 06, 2025 8:25am Secondary pulmonary hypertension chr onic April 06, 2025 8:25am Paroxysmal atrial flutter resolved April 06, 2025 8:25am Postmenopausal bleeding acute M ay 2024 1:40pm Vaginal mass acute April 30 1:40pm Dilated aortic root acute May 18, 2025 10:49am Hyperlipidemia acute May 18, 2025 10:49am Essential (primary) hypertension chr onic May 18, 2025 10:49am Paroxysmal atrial fibrillation chron ic May 18, 2025 10:49am [facility] Work Phone: 1([phone]) 439-707803-28-2025 Evaluation note* Diagnosis Onset Date Resolution Status Admit Date Obesity chronic February 26 1:58pm TERRY (obstructive sleep apnea) chroni c February 26, 2025 1:58pm Secondary pulmonary hypertension chr onic February 26, 2025 1:58pm History of right breast cancer chron ic March 22, 2025 12:25pm Lung nodule, multiple chronic Apr il 2024 12:25pm Osteoporosis chronic March 22, 2025 12:25pm Breast cancer, right breast chronic March 22, 2025 12:45pm Lung nodule, multiple chronic Apr il 2024 12:45pm Encounter for education inactive A pril 2024 12:45pm Postmenopausal bleeding acute M ay 2024 8:25am Vaginal mass acute April 06 8:25am Breast cancer, right breast chronic April 06, 2025 8:25am Essential (primary) hypertension chr onic April 06, 2025 8:25am History of right breast cancer chron ic April 06, 2025 8:25am intermediate (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 of anticoagulants chronic April 06, 2025 8: 25am Lung nodule, multiple chronic April 06, 2025 8:25am TERRY (obstructive sleep apnea) chroni c April 06, 2025 8:25am Osteoporosis chronic April 06 8:25am Paroxysmal atrial fibrillation chron ic April 06, 2025 8:25am Secondary pulmonary hypertension chr onic April 06, 2025 8:25am Paroxysmal atrial flutter resolved April 06, 2025 8:25am Postmenopausal bleeding acute M ay 2024 1:40pm Vaginal mass acute April 30 1:40pm Dilated aortic root acute May 18, 2025 10:49am Hyperlipidemia acute May 18, 2025 10:49am Essential (primary) hypertension chr onic May 18, 2025 10:49am Paroxysmal atrial fibrillation chron ic May 18, 2025 10:49am Postmenopausal bleeding acute J une 2024 11:28am Vaginal mass acute May 25, 025 11:28am [facility] Work Phone: 1([phone]) 169-618003-28-2025 Evaluation note* Diagnosis Onset Date Resolution Status Admit Date Obesity chronic February 26 1:58pm TERRY (obstructive sleep apnea) chroni c February 26, 2025 1:58pm Secondary pulmonary hypertension chr onic February 26, 2025 1:58pm History of right breast cancer chron ic March 22, 2025 12:25pm Lung nodule, multiple chronic Apr il 2024 12:25pm Osteoporosis chronic March 22, 2025 12:25pm Breast cancer, right breast chronic March 22, 2025 12:45pm Lung nodule, multiple chronic Apr il 2024 12:45pm Encounter for education inactive A pril 2024 12:45pm Postmenopausal bleeding acute M ay 2024 8:25am Vaginal mass acute April 06 8:25am Breast cancer, right breast chronic April 06, 2025 8:25am Essential (primary) hypertension chr onic April 06, 2025 8:25am History of right breast cancer chron ic April 06, 2025 8:25am intermediate (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 of anticoagulants chronic April 06, 2025 8: 25am Lung nodule, multiple chronic April 06, 2025 8:25am TERRY (obstructive sleep apnea) chroni c April 06, 2025 8:25am Osteoporosis chronic April 06 8:25am Paroxysmal atrial fibrillation chron ic April 06, 2025 8:25am Secondary pulmonary hypertension chr onic April 06, 2025 8:25am Paroxysmal atrial flutter resolved April 06, 2025 8:25am Postmenopausal bleeding acute M ay 2024 1:40pm Vaginal mass acute April 30 1:40pm Dilated aortic root acute May 18, 2025 10:49am Hyperlipidemia acute May 18, 2025 10:49am Essential (primary) hypertension chr onic May 18, 2025 10:49am Paroxysmal atrial fibrillation chron ic May 18, 2025 10:49am Postmenopausal bleeding acute J une 2024 11:28am Vaginal mass acute May 25, 025 11:28am Vaginal mass acute June 07 2:35pm [facility] Work Phone: 1([phone]) 419-954804-06-2022 Hospital Discharge instructions Patient Education 03/07/2022 07:36:34 5 - [facility] Post-op Instruction 07/2017 (22093) [facility] Post-operative Instructions PLEASE FOLLOW [facility] POST-OP INSTRUCTIONS GIVEN WATCH FOR SIGNS OF INFECTION: call the office ([phone]) if experencing any of the following: (Usually appears 36-48 hours after surgery) Increased temperature (101 degrees Fahrenheit or higher) Redness or swelling Increased uncontrolled pain Foul odor or drainage Calf discomfort Significant swelling Or if having any chest pain, shortness of breath, or difficulty breathing or swallowing call the office or go the nearest Emergency Room. If you have any questions, please call your doctor at the number listed on your follow up instructions. Form: 338A ([id number]) R: 04/07 Follow Up Care 01/16/2022 08:07:56 With:JOELLE BERRIOS SANGER Address: [address] [place] [address] [phone] When:03/27/2022 11:50:00 Comments:This is your post-hospital follow-up to discuss your lab results and sleep apnea. With:[facility] Address: When:03/19/2022 11:00:00 Comments:Follow-up as scheduled With:DONNIE ROBERTS PA-C, Orthopedic Address: [facility] [address] [place] [address] [place] [address]- When:03/19/2022 10:15:00 Comments:Follow-up as scheduled [facility] evaluation + Plan note Future Appointments [facility] evaluation note* Diagnosis Onset Date Resolution Status History of right breast cancer acute Lung nodule, multiple chroni c Encounter for education acut e Breast cancer, right breast chronic Lung nodule, multiple chroni c Encounter for pre-operative cardiovascular clearance acute Hyperlipidemia acute Essential (primary) hypertension chronic Paroxysmal atrial fibrillation chronic [facility] Work Phone: Evaluation note* Diagnosis Onset Date Resolution Status Encounter for pre-operative cardiovascular clearance acute Hyperlipidemia acute Essential (primary) hypertension chronic Paroxysmal atrial fibrillation chronic Dyspnea acute [facility] Work Phone: Evaluation note* Diagnosis Onset Date Resolution Status Encounter for pre-operative cardiovascular clearance acute Hyperlipidemia acute Essential (primary) hypertension chronic Paroxysmal atrial fibrillation chronic Dyspnea acute Shortness of breath noneacti ve [facility] Work Phone: Evaluation note* Diagnosis Onset Date Resolution Status Dyspnea acute Shortness of breath noneacti ve [facility] Work Phone: Evaluation note* Diagnosis Onset Date Resolution Status Dyspnea acute Shortness of breath noneacti ve History of right breast cancer acute Lung nodule, multiple chroni c [facility] Work Phone: Evaluation note* Diagnosis Onset Date Resolution Status Dyspnea acute Shortness of breath noneacti ve History of right breast cancer acute Lung nodule, multiple chroni c TERRY (obstructive sleep apnea) acute Secondary pulmonary hypertension acute Paroxysmal atrial fibrillation chronic [facility] Work Phone: Evaluation note* Diagnosis Onset Date Resolution Status History of right breast cancer acute Lung nodule, multiple chroni c TERRY (obstructive sleep apnea) acute Paroxysmal atrial fibrillation chronic Secondary pulmonary hypertension chronic Hyperlipidemia acute Essential (primary) hypertension chronic Paroxysmal atrial fibrillation [facility] Work Phone: Evaluation note* Diagnosis Onset Date Resolution Status TERRY (obstructive sleep apnea) acute Paroxysmal atrial fibrillation chronic Secondary pulmonary hypertension chronic Hyperlipidemia acute Essential (primary) hypertension chronic Paroxysmal atrial fibrillation chronic History of right breast cancer acute Osteoporosis acute Lung nodule, multiple chroni c [facility] Work Phone: Evaluation note* Diagnosis Onset Date Resolution Status Hyperlipidemia acute Essential (primary) hypertension chronic Paroxysmal atrial fibrillation chronic TERRY (obstructive sleep apnea) acute Paroxysmal atrial fibrillation chronic Secondary pulmonary hypertension [facility] Work Phone: Evaluation note* Diagnosis Onset Date Resolution Status Osteoporosis acute History of right breast cancer chronic Lung nodule, multiple chroni c Breast cancer, right breast chronic Lung nodule, multiple chroni c [facility] Work Phone: Evaluation note* Diagnosis Onset Date Resolution Status Osteoporosis acute History of right breast cancer chronic Lung nodule, multiple chroni c Breast cancer, right breast chronic Lung nodule, multiple chroni c Obesity chronic TERRY (obstructive sleep apnea) chronic Secondary pulmonary hypertension chronic Paroxysmal atrial flutter re solved [facility] Work Phone: Evaluation note* Diagnosis Onset Date Resolution Status Osteoporosis acute History of right breast cancer chronic Lung nodule, multiple chroni c Breast cancer, right breast chronic Lung nodule, multiple chroni c Obesity chronic TERRY (obstructive sleep apnea) chronic Secondary pulmonary hypertension chronic Paroxysmal atrial flutter re solved Hyperlipidemia acute Essential (primary) hypertension chronic Paroxysmal atrial fibrillation [facility] Work Phone: Hospital course Narrative No data available for this section [facility] Hospital Discharge instructions No data available for this section [facility] Hospital Discharge instructions Additional Instructions Please follow-up with your PCP. Return for any worsening syncope, chest pain, nausea or vomiting.[facility] Work Phone: Progress note No data available for this section [facility] Reason for referral (narrative)No reason for referral information [facility] Work Phone: Chief Complaint and Reason for Visit Chief Complaint S/O, INR-FINGERSTICK PRIMARY OSTEOARTHRITIS OF LT SHOULDER 6MO LABS ONC/HEM LEFT SHOULDER PRE OP S/O, INR-FINGERSTICK 6 M FU [id number] ORDER FROM [facility] 02/08 Reason for Visit History of right zoya ast cancer Lung nodule, multiple Encounter for education Breast cancer, right breast Lung nodule, multiple Encounter for pre-operative cardiovascular clearance Hyperlipidemia Essential (primary) hypertension Paroxysmal atrial fibrillation Chief Complaint PRIMARY OSTEOARTHRIT IS OF LT SHOULDER 6MO LABS ONC/HEM LEFT SHOULDER PRE OP S/O, INR-FINGERSTICK 6 M FU [id number] ORDER FROM [facility] 02/08 LABS AND XRAY- ANEMIA, SHORTNESS OF BREATH SOB SOB Shortness of breath [id number] ORDER FROM [facility] 02/08 Reason for Visit History of right zoya ast cancer Lung nodule, multiple Encounter for education Breast cancer, right breast Lung nodule, multiple Encounter for pre-operative cardiovascular clearance Hyperlipidemia Essential (primary) hypertension Paroxysmal atrial fibrillation Chief Complaint 6MO LABS ONC/HEM LEFT SHOULDER PRE OP S/O, INR-FINGERSTICK 6 M FU [id number] ORDER FROM [facility] 02/08 LABS AND XRAY- ANEMIA, SHORTNESS OF BREATH SOB SOB Shortness of breath [id number] ORDER FROM [facility] 02/08 Reason for Visit History of right zoya ast cancer Lung nodule, multiple Encounter for education Breast cancer, right breast Lung nodule, multiple Encounter for pre-operative cardiovascular clearance Hyperlipidemia Essential (primary) hypertension Paroxysmal atrial fibrillation Chief Complaint LEFT SHOULDER PRE OP S/O, INR-FINGERSTICK 6 M FU [id number] ORDER FROM [facility] 02/08 LABS AND XRAY- ANEMIA, SHORTNESS OF BREATH SOB SOB Shortness of breath [id number] ORDER FROM [facility] 02/08 INR-FINGERSTICK Shortness of breath Reason for Visit Encounter for pre-op erative cardiovascular clearance Hyperlipidemia Essential (primary) hypertension Paroxysmal atrial fibrillation Dyspnea Chief Complaint LEFT SHOULDER PRE OP S/O, INR-FINGERSTICK 6 M FU [id number] ORDER FROM [facility] 02/08 LABS AND XRAY- ANEMIA, SHORTNESS OF BREATH SOB SOB Shortness of breath [id number] ORDER FROM [facility] 02/08 INR-FINGERSTICK Shortness of breath SOB Reason for Visit Encounter for pre-op erative cardiovascular clearance Hyperlipidemia Essential (primary) hypertension Paroxysmal atrial fibrillation Dyspnea Chief Complaint S/O, INR-FINGERSTICK 6 M FU [id number] ORDER FROM [facility] 02/08 LABS AND XRAY- ANEMIA, SHORTNESS OF BREATH SOB SOB Shortness of breath [id number] ORDER FROM [facility] 02/08 INR-FINGERSTICK Shortness of breath SOB DYSPENA DYSPENA TERRY Reason for Visit Encounter for pre-op erative cardiovascular clearance Hyperlipidemia Essential (primary) hypertension Paroxysmal atrial fibrillation Dyspnea Shortness of breath Chief Complaint LABS AND XRAY- ANEMI A, SHORTNESS OF BREATH SOB SOB Shortness of breath [id number] ORDER FROM [facility] 02/08 INR-FINGERSTICK Shortness of breath SOB DYSPENA DYSPENA TERRY INR-FINGERSTICK SCREENING Reason for Visit Dyspnea Shortness of breath Chief Complaint LABS AND XRAY- ANEMI A, SHORTNESS OF BREATH SOB SOB Shortness of breath [id number] ORDER FROM [facility] 02/08 INR-FINGERSTICK Shortness of breath SOB DYSPENA DYSPENA TERRY INR-FINGERSTICK SCREENING LABS PRIOR Reason for Visit Dyspnea Shortness of breath History of right breast cancer Lung nodule, multiple Chief Complaint INR-FINGERSTICK Shortness of breath SOB DYSPENA DYSPENA TERRY INR-FINGERSTICK SCREENING LABS PRIOR INR-FINGERSTICK 3 M FU Reason for Visit Dyspnea Shortness of breath History of right breast cancer Lung nodule, multiple TERRY (obstructive sleep apnea) Secondary pulmonary hypertension Paroxysmal atrial fibrillation Chief Complaint DYSPENA DYSPENA TERRY INR-FINGERSTICK SCREENING LABS PRIOR INR-FINGERSTICK 3 M FU 1 Y FU SCREENING TERRY-AUTOCPAP *INVENTORY WAITLIST* CONFUSION Reason for Visit History of right zoya ast cancer Lung nodule, multiple TERRY (obstructive sleep apnea) Paroxysmal atrial fibrillation Secondary pulmonary hypertension Hyperlipidemia Essential (primary) hypertension Paroxysmal atrial fibrillation Chief Complaint INR-FINGERSTICK 3 M FU 1 Y FU SCREENING TERRY-AUTOCPAP *INVENTORY WAITLIST* CONFUSION DISCUSS BONE DENSITY INR-FINGERSTICK Reason for Visit TERRY (obstructive sle ep apnea) Paroxysmal atrial fibrillation Secondary pulmonary hypertension Hyperlipidemia Essential (primary) hypertension Paroxysmal atrial fibrillation History of right breast cancer Osteoporosis Lung nodule, multiple Chief Complaint INR-FINGERSTICK 8 mon f/u 4 M FU Reason for Visit Hyperlipidemia Essential (primary) hypertension Paroxysmal atrial fibrillation TERRY (obstructive sleep apnea) Paroxysmal atrial fibrillation Secondary pulmonary hypertension Chief Complaint INR-FINGERSTICK 8 mon f/u 4 M FU INR-FINGERSTICK Reason for Visit Hyperlipidemia Essential (primary) hypertension Paroxysmal atrial fibrillation TERRY (obstructive sleep apnea) Paroxysmal atrial fibrillation Secondary pulmonary hypertension Chief Complaint INR-FINGERSTICK 8 mon f/u 4 M FU INR-FINGERSTICK INR-FINGERSTICK Reason for Visit Hyperlipidemia Essential (primary) hypertension Paroxysmal atrial fibrillation TERRY (obstructive sleep apnea) Paroxysmal atrial fibrillation Secondary pulmonary hypertension Chief Complaint INR-FINGERSTICK INR-FINGERSTICK INR-FINGERSTICK ONC/HEM RIGHT BREAST PAIN Reason for Visit Osteoporosis History of right breast cancer Lung nodule, multiple Breast cancer, right breast Lung nodule, multiple Chief Complaint INR-FINGERSTICK INR-FINGERSTICK ONC/HEM RIGHT BREAST PAIN INR-FINGERSTICK HYPERTENISON 5 m fu Reason for Visit Osteoporosis History of right breast cancer Lung nodule, multiple Breast cancer, right breast Lung nodule, multiple Obesity TERRY (obstructive sleep apnea) Secondary pulmonary hypertension Paroxysmal atrial flutter Chief Complaint INR-FINGERSTICK INR-FINGERSTICK ONC/HEM RIGHT BREAST PAIN INR-FINGERSTICK HYPERTENISON 5 m fu INR-FINGERSTICK 6 M FU EORDER Reason for Visit Osteoporosis History of right breast cancer Lung nodule, multiple Breast cancer, right breast Lung nodule, multiple Obesity TERRY (obstructive sleep apnea) Secondary pulmonary hypertension Paroxysmal atrial flutter Hyperlipidemia Essential (primary) hypertension Paroxysmal atrial fibrillation Chief Complaint 6MO LABS PROLIA ONC/HEM INR-FINGERSTICK Reason for Visit Osteoporosis History of right breast cancer Lung nodule, multiple Breast cancer, right breast Lung nodule, multiple Chief Complaint Admit Date INR-FINGERSTICK February 24, 2025 3:5 3pm 6 m fu February 26, 2025 1:5 8pm Reason for Visit Admit Date Obesity February 26, 2025 1:5 8pm TERRY (obstructive sleep apnea) January 1:58pm Secondary pulmonary hypertension January [id number] 1:58pm Chief Complaint Admit Date INR-FINGERSTICK February 24, 2025 3:5 3pm 6 m fu February 26, 2025 1:5 8pm 6MO LABS RECLAST March 22, 2025 12: 25pm ONC/HEM March 22, 2025 12: 45pm NONREUMATIC AORTIC VALVE INSUFFICIENCY M URMUR March 26, 2025 1:47pm VAGINAL BLEEDING April 06, 2025 8:25am DDD. RX HERE April 06, 2025 10:30a m Reason for Visit Admit Date Obesity February 26, 2025 1:5 8pm TERRY (obstructive sleep apnea) January 1:58pm Secondary pulmonary hypertension January [id number] 1:58pm History of right breast cancer March 12:25pm Lung nodule, multiple March 22, 2025 1 2:25pm Osteoporosis March 22, 2025 12: 25pm Breast cancer, right breast March 22, 2025 12:45pm Lung nodule, multiple March 22, 2025 1 2:45pm Encounter for education March 22, 2025 12:45pm Postmenopausal bleeding April 06, 2025 8: 25am Vaginal mass April 06, 2025 8:25am Breast cancer, right breast April 06 8:25am Essential (primary) hypertension April 8:25am History of right breast cancer April 06, 2025 8:25am intermediate (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 of anticoagulant s April 06, 2025 8:25am Lung nodule, multiple April 06, 2025 8:25 am TERRY (obstructive sleep apnea) April 06 025 8:25am Osteoporosis April 06, 2025 8:25am Paroxysmal atrial fibrillation April 06, 2025 8:25am Secondary pulmonary hypertension April 8:25am Paroxysmal atrial flutter April 06, 2025 8:25am Chief Complaint Admit Date INR-FINGERSTICK February 24, 2025 3:5 3pm 6 m fu February 26, 2025 1:5 8pm 6MO LABS RECLAST March 22, 2025 12: 25pm ONC/HEM March 22, 2025 12: 45pm NONREUMATIC AORTIC VALVE INSUFFICIENCY M URMUR March 26, 2025 1:47pm VAGINAL BLEEDING April 06, 2025 8:25am DDD. RX HERE April 06, 2025 10:30a m labial lysis of adhesions remove vag. ma ss April 30, 2025 1:40pm Chief Complaint Admit Date INR-FINGERSTICK February 24, 2025 3:5 3pm 6 m fu February 26, 2025 1:5 8pm 6MO LABS RECLAST March 22, 2025 12: 25pm ONC/HEM March 22, 2025 12: 45pm NONREUMATIC AORTIC VALVE INSUFFICIENCY M URMUR March 26, 2025 1:47pm VAGINAL BLEEDING April 06, 2025 8:25am DDD. RX HERE April 06, 2025 10:30a m labial lysis of adhesions remove vag. kaveh ss April 30, 2025 1:40pm CARDOZA, WEAK,HEART RACING May 01, 2025 2:3 0pm Reason for Visit Admit Date Obesity February 26, 2025 1:5 8pm TERRY (obstructive sleep apnea) January 1:58pm Secondary pulmonary hypertension January [id number] 1:58pm History of right breast cancer March 12:25pm Lung nodule, multiple March 22, 2025 1 2:25pm Osteoporosis March 22, 2025 12: 25pm Breast cancer, right breast March 22, 2025 12:45pm Lung nodule, multiple March 22, 2025 1 2:45pm Encounter for education March 22, 2025 12:45pm Postmenopausal bleeding April 06, 2025 8: 25am Vaginal mass April 06, 2025 8:25am Breast cancer, right breast April 06 8:25am Essential (primary) hypertension April 8:25am History of right breast cancer April 06, 2025 8:25am intermediate (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 of anticoagulant s April 06, 2025 8:25am Lung nodule, multiple April 06, 2025 8:25 am TERRY (obstructive sleep apnea) April 06, 025 8:25am Osteoporosis April 06, 2025 8:25am Paroxysmal atrial fibrillation April 06, 2025 8:25am Secondary pulmonary hypertension April 8:25am Paroxysmal atrial flutter April 06, 2025 8:25am Postmenopausal bleeding April 30, 2025 1 :40pm Vaginal mass April 30, 2025 1:40p m Chief Complaint Admit Date INR-FINGERSTICK February 24, 2025 3:5 3pm 6 m fu February 26, 2025 1:5 8pm 6MO LABS RECLAST March 22, 2025 12: 25pm ONC/HEM March 22, 2025 12: 45pm NONREUMATIC AORTIC VALVE INSUFFICIENCY M URMUR March 26, 2025 1:47pm VAGINAL BLEEDING April 06, 2025 8:25am DDD. RX HERE April 06, 2025 10:30a m PREOP April 29, 2025 1:41p m labial lysis of adhesions remove vag. ma ss April 30, 2025 1:40pm CARDOZA, WEAK,HEART RACING May 01, 2025 2:3 0pm 6-9 M FU May 18, 2025 10:4 9am Reason for Visit Admit Date Obesity February 26, 2025 1:5 8pm TERRY (obstructive sleep apnea) January 1:58pm Secondary pulmonary hypertension January [id number] 1:58pm History of right breast cancer March 12:25pm Lung nodule, multiple March 22, 2025 1 2:25pm Osteoporosis March 22, 2025 12: 25pm Breast cancer, right breast March 22, 2025 12:45pm Lung nodule, multiple March 22, 2025 1 2:45pm Encounter for education March 22, 2025 12:45pm Postmenopausal bleeding April 06, 2025 8: 25am Vaginal mass April 06, 2025 8:25am Breast cancer, right breast April 06 8:25am Essential (primary) hypertension April 8:25am History of right breast cancer April 06, 2025 8:25am 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 s April 06, 2025 8:25am Lung nodule, multiple April 06, 2025 8:25 am TERRY (obstructive sleep apnea) April 06, 025 8:25am Osteoporosis April 06, 2025 8:25am Paroxysmal atrial fibrillation April 06, 2025 8:25am Secondary pulmonary hypertension April 8:25am Paroxysmal atrial flutter April 06, 2025 8:25am Postmenopausal bleeding April 30, 2025 1 :40pm Vaginal mass April 30, 2025 1:40p m Dilated aortic root May 18, 2025 10:4 9am Hyperlipidemia May 18, 2025 10:4 9am Essential (primary) hypertension May [id number] 10:49am Paroxysmal atrial fibrillation May 10:49am Chief Complaint Admit Date INR-FINGERSTICK February 24, 2025 3:5 3pm 6 m fu February 26, 2025 1:5 8pm 6MO LABS RECLAST March 22, 2025 12: 25pm ONC/HEM March 22, 2025 12: 45pm NONREUMATIC AORTIC VALVE INSUFFICIENCY M URMUR March 26, 2025 1:47pm VAGINAL BLEEDING April 06, 2025 8:25am DDD. RX HERE April 06, 2025 10:30a m PREOP April 29, 2025 1:41p m labial lysis of adhesions remove vag. ma ss April 30, 2025 1:40pm CARDOZA, WEAK,HEART RACING May 01, 2025 2:3 0pm 6-9 M FU May 18, 2025 10:4 9am [email or web address] - Dyspnea, unspecified May 18, 2025 11:38am [email or web address] - Dyspnea, unspecified May 21, 2025 10:45am Labial Lysis of Adhesions, removal of Va ginal Mass May 25, 2025 11:28am Chief Complaint Admit Date INR-FINGERSTICK February 24, 2025 3:5 3pm 6 m fu February 26, 2025 1:5 8pm 6MO LABS RECLAST March 22, 2025 12: 25pm ONC/HEM March 22, 2025 12: 45pm NONREUMATIC AORTIC VALVE INSUFFICIENCY M URMUR March 26, 2025 1:47pm VAGINAL BLEEDING April 06, 2025 8:25am DDD. RX HERE April 06, 2025 10:30a m PREOP April 29, 2025 1:41p m labial lysis of adhesions remove vag. ma ss April 30, 2025 1:40pm CARDOZA, WEAK,HEART RACING May 01, 2025 2:3 0pm 6-9 M FU May 18, 2025 10:4 9am [email or web address] - Dyspnea, unspecified May 18, 2025 11:38am [email or web address] - Dyspnea, unspecified May 21, 2025 10:45am Labial Lysis of Adhesions, removal of Va ginal Mass May 25, 2025 11:28am Labial Lysis of Adhesions, removal of Va ginal Mass May 25, 2025 1:31pm Reason for Visit Admit Date Obesity February 26, 2025 1:5 8pm TERRY (obstructive sleep apnea) January 1:58pm Secondary pulmonary hypertension January [id number] 1:58pm History of right breast cancer March 12:25pm Lung nodule, multiple March 22, 2025 1 2:25pm Osteoporosis March 22, 2025 12: 25pm Breast cancer, right breast March 22, 2025 12:45pm Lung nodule, multiple March 22, 2025 1 2:45pm Encounter for education March 22, 2025 12:45pm Postmenopausal bleeding April 06, 2025 8: 25am Vaginal mass April 06, 2025 8:25am Breast cancer, right breast April 06 8:25am Essential (primary) hypertension April 8:25am History of right breast cancer April 06, 2025 8:25am intermediate (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 of anticoagulant s April 06, 2025 8:25am Lung nodule, multiple April 06, 2025 8:25 am TERRY (obstructive sleep apnea) April 06 8:25am Osteoporosis April 06, 2025 8:25am Paroxysmal atrial fibrillation April 06, 2025 8:25am Secondary pulmonary hypertension April 8:25am Paroxysmal atrial flutter April 06, 2025 8:25am Postmenopausal bleeding April 30, 2025 1 :40pm Vaginal mass April 30, 2025 1:40p m Dilated aortic root May 18, 2025 10:4 9am Hyperlipidemia May 18, 2025 10:4 9am Essential (primary) hypertension May [id number] 10:49am Paroxysmal atrial fibrillation May 10:49am Postmenopausal bleeding May 25, 2025 11:28am Vaginal mass May 25, 2025 11:2 8am Chief Complaint Admit Date INR-FINGERSTICK February 24, 2025 3:5 3pm 6 m fu February 26, 2025 1:5 8pm 6MO LABS RECLAST March 22, 2025 12: 25pm ONC/HEM March 22, 2025 12: 45pm NONREUMATIC AORTIC VALVE INSUFFICIENCY M URMUR March 26, 2025 1:47pm VAGINAL BLEEDING April 06, 2025 8:25am DDD. RX HERE April 06, 2025 10:30a m PREOP April 29, 2025 1:41p m labial lysis of adhesions remove vag. ma ss April 30, 2025 1:40pm CARDOZA, WEAK,HEART RACING May 01, 2025 2:3 0pm 6-9 M FU May 18, 2025 10:4 9am [email or web address] - Dyspnea, unspecified May 18, 2025 11:38am [email or web address] - Dyspnea, unspecified May 21, 2025 10:45am Labial Lysis of Adhesions, removal of Va ginal Mass May 25, 2025 11:28am Labial Lysis of Adhesions, removal of Va ginal Mass May 25, 2025 1:31pm 2 wk labial lysys adhesions remove vag. mass June 07, 2025 2:35pm Reason for Visit Admit Date Obesity February 26, 2025 1:5 8pm TERRY (obstructive sleep apnea) January 1:58pm Secondary pulmonary hypertension January [id number] 1:58pm History of right breast cancer March 12:25pm Lung nodule, multiple March 22, 2025 1 2:25pm Osteoporosis March 22, 2025 12: 25pm Breast cancer, right breast March 22, 2025 12:45pm Lung nodule, multiple March 22, 2025 1 2:45pm Encounter for education March 22, 2025 12:45pm Postmenopausal bleeding April 06, 2025 8: 25am Vaginal mass April 06, 2025 8:25am Breast cancer, right breast April 06 8:25am Essential (primary) hypertension April 8:25am History of right breast cancer April 06, 2025 8:25am intermediate (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 of anticoagulant s April 06, 2025 8:25am Lung nodule, multiple April 06, 2025 8:25 am TERRY (obstructive sleep apnea) April 06, 025 8:25am Osteoporosis April 06, 2025 8:25am Paroxysmal atrial fibrillation April 06, 2025 8:25am Secondary pulmonary hypertension April 8:25am Paroxysmal atrial flutter April 06, 2025 8:25am Postmenopausal bleeding April 30, 2025 1 :40pm Vaginal mass April 30, 2025 1:40p m Dilated aortic root May 18, 2025 10:4 9am Hyperlipidemia May 18, 2025 10:4 9am Essential (primary) hypertension May [id number] 10:49am Paroxysmal atrial fibrillation May 10:49am Postmenopausal bleeding May 25, 2025 11:28am Vaginal mass May 25, 2025 11:2 8am Vaginal mass June 07, 2025 2:35p m Chief Complaint Admit Date 6MO LABS RECLAST March 22, 2025 12: 25pm ONC/HEM March 22, 2025 12: 45pm NONREUMATIC AORTIC VALVE INSUFFICIENCY M URMUR March 26, 2025 1:47pm VAGINAL BLEEDING April 06, 2025 8:25am DDD. RX HERE April 06, 2025 10:30a m PREOP April 29, 2025 1:41p m labial lysis of adhesions remove vag. ma ss April 30, 2025 1:40pm CARDOZA, WEAK,HEART RACING May 01, 2025 2:3 0pm 6-9 M FU May 18, 2025 10:4 9am [email or web address] - Dyspnea, unspecified May 18, 2025 11:38am [email or web address] - Dyspnea, unspecified May 21, 2025 10:45am Labial Lysis of Adhesions, removal of Va ginal Mass May 25, 2025 11:28am Labial Lysis of Adhesions, removal of Va ginal Mass May 25, 2025 1:31pm 2 wk labial lysys adhesions remove vag. mass June 07, 2025 2:35pm INR-FINGERSTICK June 25, 2025 2:24 pm Reason for Visit Admit Date History of right breast cancer March 12:25pm Lung nodule, multiple March 22, 2025 1 2:25pm Osteoporosis March 22, 2025 12: 25pm Breast cancer, right breast March 22, 2025 12:45pm Lung nodule, multiple March 22, 2025 1 2:45pm Encounter for education March 22, 2025 12:45pm Postmenopausal bleeding April 06, 2025 8: 25am Vaginal mass April 06, 2025 8:25am Breast cancer, right breast April 06 8:25am Essential (primary) hypertension April 8:25am History of right breast cancer April 06, 2025 8:25am intermediate (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 of anticoagulant s April 06, 2025 8:25am Lung nodule, multiple April 06, 2025 8:25 am TERRY (obstructive sleep apnea) April 06, 025 8:25am Osteoporosis April 06, 2025 8:25am Paroxysmal atrial fibrillation April 06, 2025 8:25am Secondary pulmonary hypertension April 8:25am Paroxysmal atrial flutter April 06, 2025 8:25am Postmenopausal bleeding April 30, 2025 1 :40pm Vaginal mass April 30, 2025 1:40p m Dilated aortic root May 18, 2025 10:4 9am Hyperlipidemia May 18, 2025 10:4 9am Essential (primary) hypertension May [id number] 10:49am Paroxysmal atrial fibrillation May 10:49am Postmenopausal bleeding May 25, 2025 11:28am Vaginal mass May 25, 2025 11:2 8am Vaginal mass June 07, 2025 2:35p m Chief Complaint Admit Date PREOP April 29, 2025 1:41p m labial lysis of adhesions remove vag. ma ss April 30, 2025 1:40pm CARDOZA, WEAK,HEART RACING May 01, 2025 2:3 0pm 6-9 M FU May 18, 2025 10:4 9am R06.00 - Dyspnea, unspecified May 18, 2025 11:38am R06.00 - Dyspnea, unspecified May 21, 2025 10:45am Labial Lysis of Adhesions, removal of Va ginal Mass May 25, 2025 11:28am Labial Lysis of Adhesions, removal of Va ginal Mass May 25, 2025 1:31pm 2 wk labial lysys adhesions remove vag. mass June 07, 2025 2:35pm INR-FINGERSTICK June 25, 2025 2:24 pm INR-FINGERSTICK August 04, 2025 1:31pm 3 month follow up August 16, 2025 9:13am Reason for Visit Admit Date Postmenopausal bleeding April 30, 2025 1 :40pm Vaginal mass April 30, 2025 1:40p m Dilated aortic root May 18, 2025 10:4 9am Hyperlipidemia May 18, 2025 10:4 9am Essential (primary) hypertension May [id number] 10:49am Paroxysmal atrial fibrillation May 10:49am Postmenopausal bleeding May 25, 2025 11:28am Vaginal mass May 25, 2025 11:2 8am Vaginal mass June 07, 2025 2:35p m Constipation August 16, 2025 9:13am Urge incontinence August 16, 2025 9:13am Urinary retention August 16, 2025 9:13am Family History No Family History Records Found Relationship Condition Age at Onset Recorded Date/T angel luis sister Cerebrovascular accident (CVA) Unknown father Coronary artery disease Unknown Hypertension Unknown mother Hypertension Unknown Coronary artery disease Unknown Advance Directives No Advanced Directives Records Found Advance Directive Response Recorded Date/ Time Living Will No March 26, 2020 2:03pm Power of Art Glass Designer No March 26 2:03pm Advance Directive Response Recorded Date/ Time Name of Medical Power of Art Glass Designer Gunjan Yoo use September 07, 2022 5:42pm Living Will Yes September 07 5:42pm Power of Art Glass Designer Yes September 07 5:42pm Advance Directive Response Recorded Date/ Time Name of Medical Power of Art Glass Designer Gunjan Yoo use September 07, 2022 4:42pm Living Will Yes September 07 4:42pm Power of Art Glass Designer Yes September 07 4:42pm Advance Directive Response Recorded Date/ Time Living Will Yes September 07 5:42pm Power of Art Glass Designer Yes September 07 5:42pm Advance Directive Response Recorded Date/ Time Living Will Yes September 07 4:42pm Power of Art Glass Designer Yes September 07 4:42pm Advance Directive Response Recorded Date/ Time Living Will Yes September 07 5:42pm Do you have a Healthcare Power of Art Glass Designer? Yes September 07, 2022 5:42pm Living Will Yes November 01 3:03am Do you have a Healthcare Power of Art Glass Designer? Yes November 01, 2024 3:03am Advance Directive Response Recorded Date/ Time Living Will Yes September 07 5:42pm Do you have a Healthcare Power of Art Glass Designer? Yes September 07, 2022 5:42pm Living Will Yes August 20, 2024 12:32pm Do you have a Healthcare Power of Art Glass Designer? Yes August 20, 2024 12:32pm Living Will No March 26, 2020 2:03pm Do you have a Healthcare Power of Art Glass Designer? No March 26, 2020 2:03pm Living Will Yes November 01 3:03am Do you have a Healthcare Power of Art Glass Designer? Yes November 01, 2024 3:03am Advance Directive Response Recorded Date/ Time Living Will Yes September 07 5:42pm Do you have a Healthcare Power of Art Glass Designer? Yes September 07, 2022 5:42pm Living Will Yes August 20, 2024 12:32pm Do you have a Healthcare Power of Art Glass Designer? Yes August 20, 2024 12:32pm Living Will No March 26, 2020 2:03pm Do you have a Healthcare Power of Art Glass Designer? No March 26, 2020 2:03pm Living Will Yes November 01 3:03am Do you have a Healthcare Power of Art Glass Designer? Yes November 01, 2024 3:03am Do you have a Healthcare Power of Art Glass Designer? Yes May 01, 2025 2:57pm Name of Medical Power of Art Glass Designer Anuel May 01, 2025 2:57pm Advance Directive Response Recorded Date/ Time Living Will Yes September 07 5:42pm Do you have a Healthcare Power of Art Glass Designer? Yes September 07, 2022 5:42pm Living Will Yes August 20, 2024 12:32pm Do you have a Healthcare Power of Art Glass Designer? Yes August 20, 2024 12:32pm Living Will No March 26, 2020 2:03pm Do you have a Healthcare Power of Art Glass Designer? No March 26, 2020 2:03pm Living Will Yes November 01 3:03am Do you have a Healthcare Power of Art Glass Designer? Yes November 01, 2024 3:03am Do you have a Healthcare Power of Art Glass Designer? Yes April 28, 2025 1:21pm Do you have a Healthcare Power of Art Glass Designer? Yes May 01, 2025 2:57pm Name of Medical Power of Art Glass Designer Anuel May 01, 2025 2:57pm Advance Directive Response Recorded Date/ Time Living Will Yes August 20, 2024 12:32pm Do you have a Healthcare Power of Art Glass Designer? Yes August 20, 2024 12:32pm Living Will No March 26, 2020 2:03pm Do you have a Healthcare Power of Art Glass Designer? No March 26, 2020 2:03pm Living Will Yes March 01, 2025 11:08pm Do you have a Healthcare Power of Art Glass Designer? Yes March 01, 2025 11:08pm Do you have a Healthcare Power of Art Glass Designer? Yes April 28, 2025 1:21pm Do you have a Healthcare Power of Art Glass Designer? Yes May 01, 2025 2:57pm Name of Medical Power of Art Glass Designer Anuel May 01, 2025 2:57pm Advance Directive Response Recorded Date/ Time Living Will Yes March 01, 2025 11:08pm Do you have a Healthcare Power of Art Glass Designer? Yes March 01, 2025 11:08pm Do you have a Healthcare Power of Art Glass Designer? Yes April 28, 2025 1:21pm Do you have a Healthcare Power of Art Glass Designer? Yes May 01, 2025 2:57pm Name of Medical Power of Art Glass Designer Anuel May 01, 2025 2:57pm Summary Purpose Additional Source Comments Goals (unrecognized section and content) Goals may be documented in a n alternate section Care Team (unrecognized sect ion and content) Team Status: Active Member Role Status Dates Dr. Daniel Lai MD Primary Care Provider Acti ve Team Status: Inactive Member Role Status Dates Dr. Daniel Lai MD Primary Care Provider Acti ve Start: February 24, 2025 End: February 24, 2025 Dr. Daniel Lai MD Family Provider Active Start: February 24, 2025 End: February 24, 2025 Dr. Juni Epstein MD Attending Provider Active S tart: February 24, 2025 End: February 24, 2025 Dr. Juni Epstein MD Referring Provider Active S tart: February 24, 2025 End: February 24, 2025 Joanna Saavedra RESEARCH EXECUTIVE, RESEARCH EXECUTIVE-C Other Provider Active St art: February 24, 2025 End: February 24, 2025 Chapo Neves RESEARCH EXECUTIVE, RESEARCH EXECUTIVE-C Other Provider Active Sta rt: February 24, 2025 End: February 24, 2025 Dr. Josue Leal MD Other Provider Active Start : February 24, 2025 End: February 24, 2025 Team Status: Inactive Member Role Status Dates Dr. Daniel Lai MD Primary Care Provider Acti ve Start: February 26, 2025 End: February 26, 2025 Dr. Daniel Lai MD Referring Provider Active Start: February 26, 2025 End: February 26, 2025 Brandie Doran RESEARCH EXECUTIVE, RESEARCH EXECUTIVE-C Attending Provider Active Start: February 26, 2025 End: February 26, 2025 Team Status: Inactive Member Role Status Dates Dr. Daniel Lai MD Primary Care Provider Acti ve Start: March 22, 2025 End: March 22, 2025 Dr. Daniel Lai MD Referring Provider Active Start: March 22, 2025 End: March 22, 2025 Dr. Josue Leal MD Attending Provider Active S tart: March 22, 2025 End: March 22, 2025 Team Status: Active Member Role Status Dates Dr. Daniel Lai MD Primary Care Provider Acti ve Start: March 22, 2025 Dr. Daniel Lai MD Family Provider Active Start: March 22, 2025 Dr. Daniel Lai MD Referring Provider Active Start: March 22, 2025 Dr. Josue Leal MD Attending Provider Active S tart: March 22, 2025 Dr. Dangelo Verde DO Other Provider Active Sta rt: March 22, 2025 Team Status: Inactive Member Role Status Dates Dr. Daniel Lai MD Primary Care Provider Acti ve Start: March 26, 2025 End: March 26, 2025 Dr. Juni Epstein MD Attending Provider Active S tart: March 26, 2025 End: March 26, 2025 Dr. Juni Epstein MD Referring Provider Active S tart: March 26, 2025 End: March 26, 2025 Team Status: Active Member Role Status Dates Dr. Daniel Lai MD Primary Care Provider Acti ve Start: March 26, 2025 Dr. Juni Epstein MD Attending Provider Active S tart: March 26, 2025 Team Status: Inactive Member Role Status Dates Dr. Daniel Lai MD Primary Care Provider Acti ve Start: April 06, 2025 End: April 06, 2025 Dr. Daniel Lai MD Referring Provider Active Start: April 06, 2025 End: April 06, 2025 Dr. Senait Dick , Attending Provider Activ e Start: April 06, 2025 End: April 06, 2025 Team Status: Inactive Member Role Status Dates Dr. Daniel Lai MD Primary Care Provider Acti ve Start: April 06, 2025 End: April 06, 2025 Dr. Daniel Lai MD Attending Provider Active Start: April 06, 2025 End: April 06, 2025 Dr. Daniel Lai MD Referring Provider Active Start: April 06, 2025 End: April 06, 2025 Team Status: Active Member Role Status Dates Dr. Daniel Lai MD Primary Care Provider Acti ve Start: April 29, 2025 End: April 29, 2025 Dr. Holger Del Valle MD Attending Provider Active Start: April 29, 2025 End: April 29, 2025 Dr. Senait Dick DO Referring Provider Activ e Start: April 29, 2025 End: April 29, 2025 Team Status: Inactive Member Role Status Dates Dr. Daniel Lai MD Primary Care Provider Acti ve Start: April 30, 2025 End: April 30, 2025 Dr. Daniel Lai MD Referring Provider Active Start: April 30, 2025 End: April 30, 2025 Dr. Senait Dick DO Attending Provider Activ e Start: April 30, 2025 End: April 30, 2025 Team Status: Inactive Member Role Status Dates Dr. Daniel Lai MD Primary Care Provider Acti ve Start: May 01, 2025 End: May 01, 2025 Dr. Brian Rivers MD Attending Provider Active Sta rt: May 01, 2025 End: May 01, 2025 Dr. Brian Rivers MD Emergency Provider Active Sta rt: May 01, 2025 End: May 01, 2025 Team Status: Inactive Member Role Status Dates Dr. Daniel Lai MD Primary Care Provider Acti ve Start: May 18, 2025 End: May 18, 2025 Dr. Daniel Lai MD Referring Provider Active Start: May 18, 2025 End: May 18, 2025 Luanne Bautista PA, PA Attending Provider Active Start: May 18, 2025 End: May 18, 2025 Team Status: Active Member Role Status Dates Dr. Daniel Lai MD Primary Care Provider Acti ve Start: December 17, 2024 Dr. Daniel Lai MD Attending Provider Active Start: December 17, 2024 Team Status: Active Member Role Status Dates Dr. Daniel Lai MD Primary Care Provider Acti ve Start: January 14, 2025 Dr. Daniel Lai MD Attending Provider Active Start: January 14, 2025 Team Status: Active Member Role Status Dates Dr. J Luis Lai MD Family Provider Active Dr. J Luis Lai MD Primary Care Provider Activ e Team Status: Inactive Member Role Status Dates Dr. J Luis Lai MD Primary Care Provider, Refe rring Provider Active Chapo Neves RESEARCH EXECUTIVE, RESEARCH EXECUTIVE-C Attending Provider Active Team Status: Inactive Member Role Status Dates Dr. J Luis Lai MD Primary Care Provider, Refe rring Provider Active Dr. Bradley Gatica MD Attending Provider Active Team Status: Active Member Role Status Dates Dr. J Luis Lai MD Primary Care Provider, Atte nding Provider Active Team Status: Inactive Member Role Status Dates Dr. J Luis Lai MD Primary Care Provider, Fami ly Provider Active Dr. Juni Epstein MD Attending Provider, Referring Pro vider Active Joanna Saavedra RESEARCH EXECUTIVE, RESEARCH EXECUTIVE-C Other Provider Active Chapo Neves RESEARCH EXECUTIVE, RESEARCH EXECUTIVE-C Other Provider Active Dr. Josue Leal MD Other Provider Active Team Status: Active Member Role Status Dates Dr. J Luis Lai MD Primary Care Provider, Family Provider, Referring Provider Active Dr. Josue Leal MD Attending Provider Active Dr. Dangelo Verde DO Other Provider Active Team Status: Inactive Member Role Status Dates Dr. J Luis Lai MD Primary Care Provider, Atte nding Provider Active Team Status: Active Member Role Status Dates Dr. J Luis Lai MD Primary Care Provider, Fami ly Provider Active Dr. Juni Epstein MD Attending Provider, Referring Pro vider Active Joanna Saavedra RESEARCH EXECUTIVE, RESEARCH EXECUTIVE-C Other Provider Active Chapo Neves NP, RESEARCH EXECUTIVE-C Other Provider Active Dr. Josue Leal MD Other Provider Active Team Status: Inactive Member Role Status Dates Dr. J Luis Lai MD Primary Care Provider Activ e Dr. Law Tomas MD Attending Provider, Referring Prov ider Active Team Status: Active Member Role Status Dates Dr. J Luis Lai MD Primary Care Provider Activ e Dr. Law Tomas MD Attending Provider, Referring Prov ider Active Team Status: Inactive Member Role Status Dates Dr. J Luis Lai MD Primary Care Provider, Refe rring Provider Active Brandie Doran RESEARCH EXECUTIVE, RESEARCH EXECUTIVE-C Attending Provider Active Team Status: Active Member Role Status Dates Dr. J Luis Lai MD Primary Care Provider Activ e Dr. Juni Epstein MD Attending Provider Active Team Status: Inactive Member Role Status Dates Dr. J Luis Lai MD Primary Care Provider Activ e Dr. Bradley Gatica MD Attending Provider, Referring Pr ovider Active Team Status: Active Member Role Status Dates Dr. J Luis Lai MD Primary Care Provider Activ e Dr. Juni Epstein MD Attending Provider, Referring Pro vider Active Team Status: Inactive Member Role Status Dates Dr. J Luis Lai MD Primary Care Provider, Attending Provider, Referring Provider Active Team Status: Active Member Role Status Dates Dr. Daniel Lai MD Family Provider Active Dr. Daniel Lai MD Primary Care Provider Acti ve Team Status: Inactive Member Role Status Dates Dr. Daniel Lai MD Primary Care Provider, Ref erring Provider Active Dr. Josue Leal MD Attending Provider Active Team Status: Active Member Role Status Dates Dr. Daniel Lai MD Primary Care Provider, Att ending Provider Active Team Status: Active Member Role Status Dates Dr. Daniel Lai MD Primary Care Provider, Family Provider, Referring Provider Active Dr. Josue Leal MD Attending Provider Active Dr. Dangelo Verde DO Other Provider Active Team Status: Inactive Member Role Status Dates Dr. Daniel Lai MD Primary Care Provider, Fam shabbir Provider Active Dr. Juni Epstein MD Attending Provider, Referring Pro vider Active Joanna Saavedra RESEARCH EXECUTIVE, RESEARCH EXECUTIVE-C Other Provider Active Chapo Neves RESEARCH EXECUTIVE, RESEARCH EXECUTIVE-C Other Provider Active Dr. Josue Leal MD Other Provider Active Team Status: Active Member Role Status Dates Dr. Daniel Lai MD Primary Care Provider Acti ve Start: November 26, 2024 Dr. Daniel Lai MD Attending Provider Active Start: November 26, 2024 Team Status: Active Member Role Status Dates Dr. Daniel Lai MD Primary Care Provider Acti ve Start: November 30, 2024 Dr. Daniel Lai MD Attending Provider Active Start: November 30, 2024 Team Status: Inactive Member Role Status Dates Dr. Daniel Lai MD Primary Care Provider Acti ve Start: May 01, 2025 End: May 01, 2025 Dr. Brian Rivers MD Emergency Provider Active Sta rt: May 01, 2025 End: May 01, 2025 Team Status: Inactive Member Role Status Dates Dr. Daniel Lai MD Primary Care Provider Acti ve Start: May 18, 2025 End: May 18, 2025 Brandie Doran RESEARCH EXECUTIVE, RESEARCH EXECUTIVE-C Attending Provider Active Start: May 18, 2025 End: May 18, 2025 Brandie Doran RESEARCH EXECUTIVE, RESEARCH EXECUTIVE-C Referring Provider Active Start: May 18, 2025 End: May 18, 2025 Team Status: Active Member Role Status Dates Dr. Daniel Lai MD Primary Care Provider Acti ve Start: May 21, 2025 Brandie Doran RESEARCH EXECUTIVE, RESEARCH EXECUTIVE-C Referring Provider Active Start: May 21, 2025 Brandie Doran RESEARCH EXECUTIVE, RESEARCH EXECUTIVE-C Other Provider Active Start: May 21, 2025 Dr. Mauro Parker , Attending Provider Active S tart: May 21, 2025 Team Status: Active Member Role Status Dates Dr. Daniel Lai MD Primary Care Provider Acti ve Start: May 25, 2025 Dr. Senait Dick DO Attending Provider Activ e Start: May 25, 2025 Dr. Senait Dick DO Referring Provider Activ e Start: May 25, 2025 Team Status: Inactive Member Role Status Dates Dr. Daniel Lai MD Primary Care Provider Acti ve Start: May 25, 2025 End: May 25, 2025 Dr. Senait Dick DO Attending Provider Activ e Start: May 25, 2025 End: May 25, 2025 Dr. Senait Dick DO Referring Provider Activ e Start: May 25, 2025 End: May 25, 2025 Team Status: Active Member Role Status Dates Dr. Daniel Lai MD Primary Care Provider Acti ve Start: May 25, 2025 Dr. Senait Dick DO Attending Provider Activ e Start: May 25, 2025 Dr. Senait Dick DO Referring Provider Activ e Start: May 25, 2025 Dr. Senait Dick DO Other Provider Active Start: May 25, 2025 Team Status: Active Member Role/Relationship Status Dates Dr. Daniel Lai MD Primary Care Provider Acti ve Team Status: Inactive Member Role/Relationship Status Dates Dr. Daniel Lai MD Primary Care Provider Acti ve Start: February 24, 2025 End: February 24, 2025 Dr. Daniel Lai MD Family Provider Active Start: February 24, 2025 End: February 24, 2025 Dr. Juni Epstein MD Attending Provider Active S tart: February 24, 2025 End: February 24, 2025 Dr. Juni Epstein MD Referring Provider Active S tart: February 24, 2025 End: February 24, 2025 Joanna Saavedra RESEARCH EXECUTIVE, RESEARCH EXECUTIVE-C Other Provider Active St art: February 24, 2025 End: February 24, 2025 Chaop Neves RESEARCH EXECUTIVE, RESEARCH EXECUTIVE-C Other Provider Active Sta rt: February 24, 2025 End: February 24, 2025 Dr. Josue Leal MD Other Provider Active Start : February 24, 2025 End: February 24, 2025 Team Status: Inactive Member Role/Relationship Status Dates Dr. Daniel Lai MD Primary Care Provider Acti ve Start: February 26, 2025 End: February 26, 2025 Dr. Daniel Lai MD Referring Provider Active Start: February 26, 2025 End: February 26, 2025 Brandie Doran RESEARCH EXECUTIVE, RESEARCH EXECUTIVE-C Attending Provider Active Start: February 26, 2025 End: February 26, 2025 Team Status: Inactive Member Role/Relationship Status Dates Dr. Daniel Lai MD Primary Care Provider Acti ve Start: March 22, 2025 End: March 22, 2025 Dr. Daniel Lai MD Referring Provider Active Start: March 22, 2025 End: March 22, 2025 Dr. Josue Leal MD Attending Provider Active S tart: March 22, 2025 End: March 22, 2025 Team Status: Active Member Role/Relationship Status Dates Dr. Daniel Lai MD Primary Care Provider Acti ve Start: March 22, 2025 Dr. Daniel Lai MD Family Provider Active Start: March 22, 2025 Dr. Daniel Lai MD Referring Provider Active Start: March 22, 2025 Dr. Josue Leal MD Attending Provider Active S tart: March 22, 2025 Dr. Dangelo Verde DO Other Provider Active Sta rt: March 22, 2025 Team Status: Inactive Member Role/Relationship Status Dates Dr. Daniel Lai MD Primary Care Provider Acti ve Start: March 26, 2025 End: March 26, 2025 Dr. Juni Epstein MD Attending Provider Active S tart: March 26, 2025 End: March 26, 2025 Dr. Juni Epstein MD Referring Provider Active S tart: March 26, 2025 End: March 26, 2025 Team Status: Active Member Role/Relationship Status Dates Dr. Daniel Lai MD Primary Care Provider Acti ve Start: March 26, 2025 Dr. Juni Epstein MD Attending Provider Active S tart: March 26, 2025 Team Status: Inactive Member Role/Relationship Status Dates Dr. Daniel Lai MD Primary Care Provider Acti ve Start: April 06, 2025 End: April 06, 2025 Dr. Daniel Lai MD Referring Provider Active Start: April 06, 2025 End: April 06, 2025 Dr. Senait Dick DO Attending Provider Activ e Start: April 06, 2025 End: April 06, 2025 Team Status: Inactive Member Role/Relationship Status Dates Dr. Daniel Lai MD Primary Care Provider Acti ve Start: April 06, 2025 End: April 06, 2025 Dr. Daniel Lai MD Attending Provider Active Start: April 06, 2025 End: April 06, 2025 Dr. Daniel Lai MD Referring Provider Active Start: April 06, 2025 End: April 06, 2025 Team Status: Active Member Role/Relationship Status Dates Dr. Daniel Lai MD Primary Care Provider Acti ve Start: April 29, 2025 End: April 29, 2025 Dr. Holger Del Valle MD Attending Provider Active Start: April 29, 2025 End: April 29, 2025 Dr. Senait Dick DO Referring Provider Activ e Start: April 29, 2025 End: April 29, 2025 Team Status: Inactive Member Role/Relationship Status Dates Dr. Daniel Lai MD Primary Care Provider Acti ve Start: April 30, 2025 End: April 30, 2025 Dr. Daniel Lai MD Referring Provider Active Start: April 30, 2025 End: April 30, 2025 Dr. Senait Dick DO Attending Provider Activ e Start: April 30, 2025 End: April 30, 2025 Team Status: Inactive Member Role/Relationship Status Dates Dr. Daniel Lai MD Primary Care Provider Acti ve Start: May 01, 2025 End: May 01, 2025 Dr. Brian Rivers MD Attending Provider Active Sta rt: May 01, 2025 End: May 01, 2025 Dr. Brian Rivers MD Emergency Provider Active Sta rt: May 01, 2025 End: May 01, 2025 Team Status: Inactive Member Role/Relationship Status Dates Dr. Daniel Lai MD Primary Care Provider Acti ve Start: May 18, 2025 End: May 18, 2025 Dr. Daniel Lai MD Referring Provider Active Start: May 18, 2025 End: May 18, 2025 Luanne Bautista PA, PA Attending Provider Active Start: May 18, 2025 End: May 18, 2025 Team Status: Inactive Member Role/Relationship Status Dates Dr. Daniel Lai MD Primary Care Provider Acti ve Start: May 18, 2025 End: May 18, 2025 Brandie Doran RESEARCH EXECUTIVE, RESEARCH EXECUTIVE-C Attending Provider Active Start: May 18, 2025 End: May 18, 2025 Brandie Doran RESEARCH EXECUTIVE, RESEARCH EXECUTIVE-C Referring Provider Active Start: May 18, 2025 End: May 18, 2025 Team Status: Active Member Role/Relationship Status Dates Dr. Daniel Lai MD Primary Care Provider Acti ve Start: May 21, 2025 Brandie Doran RESEARCH EXECUTIVE, RESEARCH EXECUTIVE-C Referring Provider Active Start: May 21, 2025 Brandie Doran RESEARCH EXECUTIVE, RESEARCH EXECUTIVE-C Other Provider Active Start: May 21, 2025 Dr. Mauro Parker DO Attending Provider Active S tart: May 21, 2025 Team Status: Inactive Member Role/Relationship Status Dates Dr. Daniel Lai MD Primary Care Provider Acti ve Start: May 25, 2025 End: May 25, 2025 Dr. Senait Dick DO Attending Provider Activ e Start: May 25, 2025 End: May 25, 2025 Dr. Senait Dick DO Referring Provider Activ e Start: May 25, 2025 End: May 25, 2025 Team Status: Active Member Role/Relationship Status Dates Dr. Daniel Lai MD Primary Care Provider Acti ve Start: May 25, 2025 Dr. Senait Dick DO Attending Provider Activ e Start: May 25, 2025 Dr. Senait Dick DO Referring Provider Activ e Start: May 25, 2025 Dr. Senait Dick DO Other Provider Active Start: May 25, 2025 Team Status: Inactive Member Role/Relationship Status Dates Dr. Daniel Lai MD Primary Care Provider Acti ve Start: June 07, 2025 End: June 07, 2025 Dr. Daniel Lai MD Referring Provider Active Start: June 07, 2025 End: June 07, 2025 Dr. Senait Dick DO Attending Provider Activ e Start: June 07, 2025 End: June 07, 2025 Team Status: Active Member Role/Relationship Status Dates Dr. Daniel Lai MD Family Provider Active Dr. Daniel Lai MD Primary Care Provider Acti ve Team Status: Inactive Member Role/Relationship Status Dates Dr. Daniel Lai MD Primary Care Provider Acti ve Start: March 22, 2025 End: March 22, 2025 Dr. Daniel Lai MD Referring Provider Active Start: March 22, 2025 End: March 22, 2025 Dr. Josue Leal MD Attending Provider Active S tart: March 22, 2025 End: March 22, 2025 Team Status: Active Member Role/Relationship Status Dates Dr. Daniel Lai MD Primary Care Provider Acti ve Start: March 22, 2025 Dr. Daniel Lai MD Family Provider Active Start: March 22, 2025 Dr. Daniel Lai MD Referring Provider Active Start: March 22, 2025 Dr. Josue Leal MD Attending Provider Active S tart: March 22, 2025 Dr. Dangelo Verde DO Other Provider Active Sta rt: March 22, 2025 Team Status: Inactive Member Role/Relationship Status Dates Dr. Daniel Lai MD Primary Care Provider Acti ve Start: March 26, 2025 End: March 26, 2025 Dr. Juni Epstein MD Attending Provider Active S tart: March 26, 2025 End: March 26, 2025 Dr. Juni Epstein MD Referring Provider Active S tart: March 26, 2025 End: March 26, 2025 Team Status: Active Member Role/Relationship Status Dates Dr. Daniel Lai MD Primary Care Provider Acti ve Start: March 26, 2025 Dr. Juni Epstein MD Attending Provider Active S tart: March 26, 2025 Team Status: Inactive Member Role/Relationship Status Dates Dr. Daniel Lai MD Primary Care Provider Acti ve Start: April 06, 2025 End: April 06, 2025 Dr. Daniel Lai MD Referring Provider Active Start: April 06, 2025 End: April 06, 2025 Dr. Senait Dick DO Attending Provider Activ e Start: April 06, 2025 End: April 06, 2025 Team Status: Inactive Member Role/Relationship Status Dates Dr. Daniel Lai MD Primary Care Provider Acti ve Start: April 06, 2025 End: April 06, 2025 Dr. Daniel Lai MD Attending Provider Active Start: April 06, 2025 End: April 06, 2025 Dr. Daniel Lai MD Referring Provider Active Start: April 06, 2025 End: April 06, 2025 Team Status: Active Member Role/Relationship Status Dates Dr. Daniel Lai MD Primary Care Provider Acti ve Start: April 29, 2025 End: April 29, 2025 Dr. Holger Del Valle MD Attending Provider Active Start: April 29, 2025 End: April 29, 2025 Dr. Senait Dick DO Referring Provider Activ e Start: April 29, 2025 End: April 29, 2025 Team Status: Inactive Member Role/Relationship Status Dates Dr. Daniel Lai MD Primary Care Provider Acti ve Start: April 30, 2025 End: April 30, 2025 Dr. Daniel Lai MD Referring Provider Active Start: April 30, 2025 End: April 30, 2025 Dr. Senait Dick DO Attending Provider Activ e Start: April 30, 2025 End: April 30, 2025 Team Status: Inactive Member Role/Relationship Status Dates Dr. Daniel Lai MD Primary Care Provider Acti ve Start: May 01, 2025 End: May 01, 2025 Dr. Brian Rivers MD Attending Provider Active Sta rt: May 01, 2025 End: May 01, 2025 Dr. Brian Rivers MD Emergency Provider Active Sta rt: May 01, 2025 End: May 01, 2025 Team Status: Inactive Member Role/Relationship Status Dates Dr. Daniel Lai MD Primary Care Provider Acti ve Start: May 18, 2025 End: May 18, 2025 Dr. Daniel Lai MD Referring Provider Active Start: May 18, 2025 End: May 18, 2025 Luanne Bautista PA, PA Attending Provider Active Start: May 18, 2025 End: May 18, 2025 Team Status: Inactive Member Role/Relationship Status Dates Dr. Daniel Lai MD Primary Care Provider Acti ve Start: May 18, 2025 End: May 18, 2025 Brandie Doran RESEARCH EXECUTIVE, RESEARCH EXECUTIVE-C Attending Provider Active Start: May 18, 2025 End: May 18, 2025 Brandie Doran RESEARCH EXECUTIVE, RESEARCH EXECUTIVE-C Referring Provider Active Start: May 18, 2025 End: May 18, 2025 Team Status: Active Member Role/Relationship Status Dates Dr. Daniel Lai MD Primary Care Provider Acti ve Start: May 21, 2025 Brandie Doran RESEARCH EXECUTIVE, RESEARCH EXECUTIVE-C Referring Provider Active Start: May 21, 2025 Brandie Doran RESEARCH EXECUTIVE, RESEARCH EXECUTIVE-C Other Provider Active Start: May 21, 2025 Dr. Mauro Parker DO Attending Provider Active S tart: May 21, 2025 Team Status: Inactive Member Role/Relationship Status Dates Dr. Daniel Lai MD Primary Care Provider Acti ve Start: May 25, 2025 End: May 25, 2025 Dr. Senait Dick DO Attending Provider Activ e Start: May 25, 2025 End: May 25, 2025 Dr. Senait Dick DO Referring Provider Activ e Start: May 25, 2025 End: May 25, 2025 Team Status: Active Member Role/Relationship Status Dates Dr. Daniel Lai MD Primary Care Provider Acti ve Start: May 25, 2025 Dr. Senait Dick DO Attending Provider Activ e Start: May 25, 2025 Dr. Senait Dick DO Referring Provider Activ e Start: May 25, 2025 Dr. Senait Dick DO Other Provider Active Start: May 25, 2025 Team Status: Inactive Member Role/Relationship Status Dates Dr. Daniel Lai MD Primary Care Provider Acti ve Start: June 01, 2025 Dr. Jessy Wade MD Attending Provider Active Start: June 01, 2025 Team Status: Inactive Member Role/Relationship Status Dates Dr. Daniel Lai MD Primary Care Provider Acti ve Start: June 07, 2025 End: June 07, 2025 Dr. Daniel Lai MD Referring Provider Active Start: June 07, 2025 End: June 07, 2025 Dr. Senait Dick DO Attending Provider Activ e Start: June 07, 2025 End: June 07, 2025 Team Status: Inactive Member Role/Relationship Status Dates Dr. Daniel Lai MD Primary Care Provider Acti ve Start: June 25, 2025 End: July 02, 2025 Dr. Daniel Lai MD Family Provider Active Start: June 25, 2025 End: July 02, 2025 Dr. Juni Epstein MD Attending Provider Active S tart: June 25, 2025 End: July 02, 2025 Dr. Juni Epstein MD Referring Provider Active S tart: June 25, 2025 End: July 02, 2025 Joanna Saavedra RESEARCH EXECUTIVE, RESEARCH EXECUTIVE-C Other Provider Active St art: June 25, 2025 End: July 02, 2025 Chapo Neves RESEARCH EXECUTIVE, RESEARCH EXECUTIVE-C Other Provider Active Sta rt: June 25, 2025 End: July 02, 2025 Dr. Josue Leal MD Other Provider Active Start : June 25, 2025 End: July 02, 2025 Team Status: Active Member Role/Relationship Status Dates Dr. Daniel Lai MD Primary Care Provider Acti ve Start: April 29, 2025 End: April 29, 2025 Dr. Holger Del Valle MD Attending Provider Active Start: April 29, 2025 End: April 29, 2025 Dr. Senait Dick DO Referring Provider Activ e Start: April 29, 2025 End: April 29, 2025 Team Status: Inactive Member Role/Relationship Status Dates Dr. Daniel Lai MD Primary Care Provider Acti ve Start: April 30, 2025 End: April 30, 2025 Dr. Daniel Lai MD Referring Provider Active Start: April 30, 2025 End: April 30, 2025 Dr. Senait Dick DO Attending Provider Activ e Start: April 30, 2025 End: April 30, 2025 Team Status: Inactive Member Role/Relationship Status Dates Dr. Daniel Lai MD Primary Care Provider Acti ve Start: May 01, 2025 End: May 01, 2025 Dr. Brian Rivers MD Attending Provider Active Sta rt: May 01, 2025 End: May 01, 2025 Dr. Brian Rivers MD Emergency Provider Active Sta rt: May 01, 2025 End: May 01, 2025 Team Status: Inactive Member Role/Relationship Status Dates Dr. Daniel Lai MD Primary Care Provider Acti ve Start: May 18, 2025 End: May 18, 2025 Dr. Daniel Lai MD Referring Provider Active Start: May 18, 2025 End: May 18, 2025 Luanne Bautista PA, PA Attending Provider Active Start: May 18, 2025 End: May 18, 2025 Team Status: Inactive Member Role/Relationship Status Dates Dr. Daniel Lai MD Primary Care Provider Acti ve Start: May 18, 2025 End: May 18, 2025 Brandie Doran RESEARCH EXECUTIVE, RESEARCH EXECUTIVE-C Attending Provider Active Start: May 18, 2025 End: May 18, 2025 Brandie Doran RESEARCH EXECUTIVE, RESEARCH EXECUTIVE-C Referring Provider Active Start: May 18, 2025 End: May 18, 2025 Team Status: Active Member Role/Relationship Status Dates Dr. Daniel Lai MD Primary Care Provider Acti ve Start: May 21, 2025 Brandie Doran RESEARCH EXECUTIVE, RESEARCH EXECUTIVE-C Referring Provider Active Start: May 21, 2025 Brandie Doran RESEARCH EXECUTIVE, RESEARCH EXECUTIVE-C Other Provider Active Start: May 21, 2025 Dr. Mauro Parker DO Attending Provider Active S tart: May 21, 2025 Team Status: Inactive Member Role/Relationship Status Dates Dr. Daniel Lai MD Primary Care Provider Acti ve Start: May 25, 2025 End: May 25, 2025 Dr. Senait Dick DO Attending Provider Activ e Start: May 25, 2025 End: May 25, 2025 Dr. Senait Dick DO Referring Provider Activ e Start: May 25, 2025 End: May 25, 2025 Team Status: Active Member Role/Relationship Status Dates Dr. Daniel Lai MD Primary Care Provider Acti ve Start: May 25, 2025 Dr. Senait Dick DO Attending Provider Activ e Start: May 25, 2025 Dr. Senait Dick DO Referring Provider Activ e Start: May 25, 2025 Dr. Senait Dikc DO Other Provider Active Start: May 25, 2025 Team Status: Inactive Member Role/Relationship Status Dates Dr. Daniel aLi MD Primary Care Provider Acti ve Start: June 01, 2025 Dr. Jessy Wade MD Attending Provider Active Start: June 01, 2025 Team Status: Inactive Member Role/Relationship Status Dates Dr. Daniel Lai MD Primary Care Provider Acti ve Start: June 07, 2025 End: June 07, 2025 Dr. Daniel Lai MD Referring Provider Active Start: June 07, 2025 End: June 07, 2025 Dr. Senait Dick DO Attending Provider Activ e Start: June 07, 2025 End: June 07, 2025 Team Status: Inactive Member Role/Relationship Status Dates Dr. Daniel Lai MD Primary Care Provider Acti ve Start: June 25, 2025 End: July 02, 2025 Dr. Daniel Lai MD Family Provider Active Start: June 25, 2025 End: July 02, 2025 Dr. Juni Epstein MD Attending Provider Active S tart: June 25, 2025 End: July 02, 2025 Dr. Juni Epstein MD Referring Provider Active S tart: June 25, 2025 End: July 02, 2025 Joanna Saavedra RESEARCH EXECUTIVE, RESEARCH EXECUTIVE-C Other Provider Active St art: June 25, 2025 End: July 02, 2025 Chapo Neves RESEARCH EXECUTIVE, RESEARCH EXECUTIVE-C Other Provider Active Sta rt: June 25, 2025 End: July 02, 2025 Dr. Josue Leal MD Other Provider Active Start : June 25, 2025 End: July 02, 2025 Team Status: Active Member Role/Relationship Status Dates Dr. Daniel Lai MD Primary Care Provider Acti ve Start: August 04, 2025 Dr. Daniel Lai MD Family Provider Active Start: August 04, 2025 Dr. Juni Epstein MD Attending Provider Active S tart: August 04, 2025 Dr. Juni Epstein MD Referring Provider Active S tart: August 04, 2025 Joanna Saavedra RESEARCH EXECUTIVE, RESEARCH EXECUTIVE-C Other Provider Active St art: August 04, 2025 Chapo Neves RESEARCH EXECUTIVE, RESEARCH EXECUTIVE-C Other Provider Active Sta rt: August 04, 2025 Dr. Josue Leal MD Other Provider Active Start : August 04, 2025 Team Status: Inactive Member Role/Relationship Status Dates Dr. Daniel Lai MD Primary Care Provider Acti ve Start: August 16, 2025 End: August 16, 2025 Dr. Daniel Lai MD Referring Provider Active Start: August 16, 2025 End: August 16, 2025 Dr. Jessy Wade MD Attending Provider Active Start: August 16, 2025 End: August 16, 2025 INFORMATION SOURCE (unrecogn ized section and content) DATE CREATED AUTHOR 05/08/2022 [facility] ([place]) DATE CREATED AUTHOR AUTHOR'S ORGANIZ ATION 08/25/2025 [facility] FOR RECORDS PERTAINING TO PATIENTS WHO ARE OR HAVE BEEN ENROLLED IN A CHEMICAL DEPENDENCY/SUBSTANCEABUSE PROGRAM, SOME INFORMATION MAY BE OMITTED. This clinical summary was aggregated from multiple sources. Caution should be exercised in using it in the provision of clinical care. This summary normalizes information from multiple sources, and as a consequence, information in this document may materially change the coding, format and clinical context of patient data. In addition, data may be omitted in some cases. CLINICAL DECISIONS SHOULD BE BASED ON THE PRIMARY CLINICAL RECORDS. [facility] [employer] [facility]. provides no warranty or guarantee of the accuracy or completeness of information in this document.
== END | disposition home or self-care (01) ==
LOC: MFPLAB 16:07 → LABSPEC 16:07
PROVIDERS: PCP Family Medicine; Visit Provider Family Medicine
DX: E11.9 Type 2 diabetes mellitus without complications (principal)
CPT/HCPCS: 82043; 82570

== ENCOUNTER → 2025-09-10 | Outpatient (CLI) | payer MEDICARE, SELFPAY ==
[2019-09-15 09:55] VITALS: BMI 42.3
[2025-09-10 19:36] LABS: Prothrombin Time (Protime)PT. 59.9 SECONDS (11.7-14.9)
== END | disposition home or self-care (01) ==
LOC: MTLAB 10-12 14:47
PROVIDERS: PCP Family Medicine; Referring Provider Internal Medicine Cardiovascular Disease; Visit Provider Internal Medicine Cardiovascular Disease
DX: Z79.01 Long term (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 of anticoagulants (principal)
CPT/HCPCS: 36415; 85610

== ENCOUNTER 2025-10-18 11:37 | Outpatient (RCR) | payer MEDICARE, SELFPAY ==
[2019-09-15 09:55] VITALS: BMI 42.3
[2025-10-19 13:44] LABS: INR Fingerstick 2.4
== END 2025-10-30 18:00 | disposition home or self-care (01) ==
LOC: MTLAB 11:37
PROVIDERS: Family Provider Family Medicine; PCP Family Medicine; Referring Provider Internal Medicine Cardiovascular Disease; Visit Provider Internal Medicine Cardiovascular Disease
DX: I48.0 Paroxysmal atrial fibrillation (principal); Z79.01 Long term (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 of anticoagulants
CPT/HCPCS: 36416; 85610

== ENCOUNTER → 2025-10-18 | Outpatient (CLI) | payer MEDICARE, SELFPAY ==
[2019-09-15 09:55] VITALS: BMI 42.3
--- NOTE | 2025-10-18 11:00 | BI_ITS ---
EXAM: SCRN MAMM (CAD)W/DOC BILAT DATE: 10/18/2025 CLINICAL HISTORY: F, Age 80 y/o , SCREENING TECHNIQUE: Procedure Code: [id number] Modality: MG Procedure: SCRN MAMM (CAD)W/DOC BILAT COMPARISON: Prior exam(s) were compared FINDINGS: TISSUE DENSITY: The breasts are heterogeneously dense, which may obscure small masses. Bilateral Breast Mammographic Findings: Right breast: There is focal asymmetry with associated distortion in the upper- outer posterior right breast. Recommend diagnostic right breast mammogram spot compression CC/MLO views, full field true lateral view and possible targeted ultrasound scanning the right breast from 9:00 to 12:00 about 9 cm from the nipple. Left breast: No significant masses, calcifications or other abnormalities are identified. BI/SCRN MAMM (CAD)W/DOC BILAT IMPRESSION: Focal asymmetry with associated distortion in the upper-outer posterior right b reast. Recommend diagnostic right breast mammogram spot compression CC/MLO views, full field true lateral view and possible target ed ultrasound scanning the right breast from 9:00 to 12:00 about 9 cm from the nipple. No mammographic evidence of malignancy in the left breast. OVERALL FINAL ASSESSMENT BI-RADS 0: INCOMPLETE - NEED ADDITIONAL IMAGING EVALUATION. RECOMMENDATION: Additional Views obtained/call backs Additional Recommendation none A letter with findings and recommendations will be mailed to the patient. Reading Location: [id number]
== END | disposition home or self-care (01) ==
LOC: OPBI 10:36
PROVIDERS: PCP Family Medicine; Referring Provider Internal Medicine Medical Oncology; Visit Provider Internal Medicine Medical Oncology
DX: Z12.31 Encounter for screening mammogram for malignant neoplasm of breast (principal)
CPT/HCPCS: 77063; 77067

== ENCOUNTER → 2025-10-20 | Outpatient (CLI) | payer MEDICARE, SELFPAY ==
[2019-09-15 09:55] VITALS: BMI 42.3
--- NOTE | 2025-10-20 12:47 | RAD_ITS ---
PROCEDURE: FOOT MIN 3 VIEWS 10/20/2025 REASON FOR EXAM: R MIDFOOT PAIN, NO INJURY, HIGH ARCH. TECHNIQUE: Procedure Code: RADFO Modality: DX Procedure: FOOT MIN 3 VIEWS Laterality: Right COMPARISON: None FINDINGS: Bones: Bones are demineralized. No demonstrated acute fracture or suspicious osseous lesion. 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 No subchondral changes or erosions. 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
== END | disposition home or self-care (01) ==
LOC: MTRAD 12:47
PROVIDERS: PCP Family Medicine; Referring Provider Family Medicine; Visit Provider Family Medicine
DX: M79.671 Pain in right foot (principal)
CPT/HCPCS: 73630

== ENCOUNTER → 2025-10-29 | Outpatient (CLI) | payer MEDICARE, SELFPAY ==
[2019-09-15 09:55] VITALS: BMI 42.3
--- NOTE | 2025-10-29 12:51 | BI_ITS ---
EXAM: DIAG MAMM W/CAD, UNILAT N/A CLINICAL HISTORY: F, Age 80 y/o , ABNORMAL BASAI TECHNIQUE: Procedure Code: [id number] Modality: MG Procedure: DIAG MAMM W/CAD, UNILAT. COMPARISON: Prior exam(s) dated 10/21/2025, 10/18/2025, and 10/15/2024. FINDINGS: TISSUE DENSITY: The breasts are almost entirely fatty. Bilateral Breast Mammographic Findings: There is a nodular masslike density in the superior outer aspect of the right breast which does persist on today's study. Further workup with ultrasound will be performed for further evaluation. BI/DIAG MAMM W/CAD, UNILAT IMPRESSION: There is a nodular masslike density in the superior outer aspect of the right b reast which does persist on today's study. Further workup with ultrasound will be performed for further evaluation. OVERALL FINAL ASSESSMENT BI-RADS 0: INCOMPLETE - NEED ADDITIONAL IMAGING EVALUATION. RECOMMENDATION: Ultrasound Recommended Additional Recommendation none A letter with findings and recommendations will be mailed to the patient. Reading Location: [id number]
--- NOTE | 2025-10-29 12:52 | US_ITS ---
PROCEDURE: BREAST LIMITED UNILATERAL 10/29/2025 REASON FOR EXAM: F, Age 80 y/o , ABNORMAL BASIA COMPARISON: Mammogram study dated 10/18/2025, 10/15/2024 and 08/22/2023. TECHNIQUE: Procedure Code: [id number] Modality: US Procedure: BREAST LIMITED UNILATERAL FINDINGS: There is an irregularly marginated masslike density in the superior outer aspect of the right breast. This is located approximately 8 cm from the nipple. The mass does persist on today's spot compression views as well as the ML view. The mass is of uncertain etiology. Further workup with ultrasound will be performed for further evaluation. US/Breast Limited Unilateral IMPRESSION: There is an irregularly marginated masslike density in the superior outer aspec t of the right breast. This is located approximately 8 cm from the nipple. The mass does persist on today's spot comp ression views as well as the ML view. The mass is of uncertain etiology. Further workup with ultrasound will be performed for fu rther evaluation. BI-RADS 0: INCOMPLETE - NEED ADDITIONAL IMAGING EVALUATION. RECOMMENDATION: Ultrasound Recommended Reading Location: [id number]
--- OUTSIDE RECORDS SUMMARY | 2025-10-29 13:02 | XMS RPT_ITS | CCD ---
Author Organization [facility] Care Team Providers Care Biometric Screener Name Role Phone JOELLE BERRIOS, DR SANCHEZ Primary Care Physician Dr. J Luis Lai Primary Care Provider [phone] Dr. J Luis Lai Referring Provider Dr. Josue Leal Attending Provider Ian DALY, JUAN Quintana Attending Provider DR DANIEL LAI MD Primary Care Physician Dr. J Luis Lai Other Provider [phone] Bradley Gatica Attending Provider Dr. J [...] Provider Dr. Juni Epstein Attending Provider Geoff SUPPLY CHAIN ANALYST, SUPPLY CHAIN ANALYST-C Micki Attending Provider Dr. J Luis Lai Primary Care Provider Dr. J Luis Lai Attending Provider Dr. J Luis Lai Referring Provider Ian SUPPLY CHAIN ANALYST, SUPPLY CHAIN ANALYST-C Chapo Attending Provider Dr. Bradley Gatica Attending Provider Dr. J Luis Lai Primary Care Provider Dr. J Luis Lai Primary Care Provider Lucian, Dr. Alfredo Attending Provider Dr. J Luis Lai Referring Provider Andreea SUPPLY CHAIN ANALYST, SUPPLY CHAIN ANALYST-C Brandie Attending Provider [phone] Dr. Juni Epstein Referring Provider Dr. J Luis Lai Primary Care Provider Dr. Juni Epstein Attending Provider Dr. Juni Epstein Referring Provider Dr. J Luis Lai Referring Provider Andreea SUPPLY CHAIN ANALYST, SUPPLY CHAIN ANALYST-C Brandie Attending Provider [phone] Ian SUPPLY CHAIN ANALYST, SUPPLY CHAIN ANALYST-C Chapo Attending Provider Dr. Daniel Lai Primary Care Provider [phone] Dr. Daniel Lai Attending Provider Dr. Daniel Lai Referring Provider Dr. Josue Leal Attending Provider Joelle BERRIOS, Dr. Sanchez Primary Care Provider Joelle BERRIOS, Dr. Sanchez Attending Provider [phone] Lucian BERRIOS, Dr. Alfredo Attending Provider Lucian BERRIOS, Dr. Alfredo Referring Provider Keri SUPPLY CHAIN ANALYST-C, Joanna Other Provider Ian SUPPLY CHAIN ANALYST-C, Chapo Other Provider Mel BERRIOS, Dr. Salas Other Provider Joelle BERRIOS, Dr. Sanchez Referring Provider Andreea SUPPLY CHAIN ANALYST-C, Brandie Attending Provider Joelle BERRIOS, Dr. Sanchez Primary Care Provider Joelle BERRIOS, Dr. Sanchez Attending Provider Mel BERRIOS, Dr. Salas Attending Provider Mehreen CAMACHO, Dr. Pierson Other Provider Jack Sorto DO, Dr. Sapp Attending Provider Joelle BERRIOS, Dr. Sanchez Primary Care Provider Joelle BERRIOS, Dr. Sanchez Attending Provider Silvestre BERRIOS, Dr. Torres Emergency Provider Joelle BERRIOS, Dr. Sanchez Primary Care Provider Joelle BERRIOS, Dr. Sanchez Attending Provider [phone] Dr. Holger Del Valle MD Attending Provider Dr. Senait Dick DO Referring Provider Silvestre BERRIOS, Dr. Torres Attending Provider Luanne Buchanan Attending Provider Andreea SUPPLY CHAIN ANALYST-C, Brandie Referring Provider Andreea SUPPLY CHAIN ANALYST-C, Brandie Other Provider Dr. Mauro Parker DO Attending Provider Dr. Senait Dick DO Other Provider [phone] Dr. Daniel Lai MD Primary Care Provider Joelle BERRIOS, Dr. Sanchez Referring Provider Lucian BERRIOS, Dr. Alfredo Attending Provider Lucian BERRIOS, Dr. Alfredo Referring Provider Andreea SUPPLY CHAIN ANALYST-C, Brandie Attending Provider Sheri BERRIOS, Dr. Jiménez Attending Provider Keri SUPPLY CHAIN ANALYST-C, Joanna Other Provider Ian SUPPLY CHAIN ANALYST-C, Chapo Other Provider Mel BERRIOS, Dr. Salas Other Provider Joelle BERRIOS, Dr. Sanchez Primary Care Provider Joelle BERRIOS, Dr. Sanchez Referring Provider [phone] Jack Sorto DO, Dr. Sapp Attending Provider Sheri BERRIOS, Dr. Jiménez Attending Provider Lucian BERRIOS, Dr. Alfredo Attending Provider [phone] Lucian BERRIOS, Dr. Alfredo Referring Provider [phone] Joelle BERRIOS, Dr. Sanchez Primary Care Physicia n Dr. Daniel Lai MD Referring Provider Michele LEWIS, Luanne Jane Attending Physician [phone] Andreea SUPPLY CHAIN ANALYST-C, Brandie Attending Physician Andreea SUPPLY CHAIN ANALYST-C, Brandie Nurse Practitioner Dr. Mauro Parker DO Attending Physician Dr. Senait Dick DO Attending Physician Dr. Senait Dick DO Referring Provider Jack Sorto DO, Dr. Sapp Nurse Practitioner Dr. Jessy Wade MD Attending Physician Lucian BERRIOS, Dr. Alfredo Attending Physician Keri SUPPLY CHAIN ANALYST-C, Joanna Nurse Practitioner Ian SUPPLY CHAIN ANALYST-C, Chapo Nurse Practitioner Mel BERRIOS, Dr. Salas Nurse Practitioner Joelle BERRIOS, Dr. Sanchez Attending Physician Joelle BERRIOS, Dr. Sanchez Primary Care Physicia n Joelle BERRIOS, Dr. Sanchez Referring Provider Jack Sorto DO, Dr. Sapp Attending Physician Andreea SUPPLY CHAIN ANALYST-C, Brandie Attending Physician Mel BERRIOS, Dr. Salas Attending Physician Dr. Dangelo Verde DO Nurse Practitioner Keri SUPPLY CHAIN ANALYST, Joanna Consulting Unavailable Ranney, Christopher Primary Care Unavailable Lucian, [place] Attending Unavailable Lucian, [place] Referring Unavailable Neves SUPPLY CHAIN ANALYST, Chapo Consulting Unavailable Prah, Josue Consulting Unavailable Ranney, Christopher Primary Care Unavailable Prah, Josue Referring Unavailable Mel, Josue Attending Unavailable Ranney, Christopher Primary Care Unavailable Andreea SUPPLY CHAIN ANALYST, Brandie Attending Unavailable Doran SUPPLY CHAIN ANALYST, Brandie Referring Unavailable Ranney, Daniel Attending Unavailable Ranney, Christopher Primary Care Unavailable Ranney, Christopher Primary Care Unavailable Senait Dick Referring Unavailabl Holger Esquivel Attending Unavailable Ranney, Christopher Referring Unavailable Ranney, Daniel Attending Unavailable Ranney, Christopher Primary Care Unavailable Keri SUPPLY CHAIN ANALYSTJoanna Consulting Unavailable Ranney, Christopher Primary Care Unavailable Lucian, Juni Attending Unavailable Lucian, Juni Referring Unavailable Neves SUPPLY CHAIN ANALYST, Chapo Consulting Unavailable Prah, Josue Consulting Unavailable Ranney, Christopher Primary Care Unavailable Lucian, [place] Attending Unavailable Lucian, [place] Referring Unavailable Keri SUPPLY CHAIN ANALYSTJoanna Consulting Unavailable Ranney, Christopher Primary Care Unavailable Lucian, Juni Attending Unavailable Lucian, [place] Referring Unavailable Ian SUPPLY CHAIN ANALYST, Chpao Consulting Unavailable Prah, Josue Consulting Unavailable Ranney, Christopher Referring Unavailable Ranney, Christopher Primary Care Unavailable Brandie Doran NP Attending Unavailable Ranney, Christopher Referring Unavailable [facility], [facility] Unavailable Josue Leal Attending Unavailable Ranney, Christopher Referring Unavailable Ranburns, [facility] Primary Care Unavailable Chapo Neves NP Attending Unavailable Ranburns, [facility] Primary Care Unavailable Ranney, Christopher Referring Unavailable Luanne Buchanan Attending Unavail able Ranney, Christopher Referring Unavailable Ranburns, [facility] Primary Care Unavailable Senait Dick Attending Unavailabl e Ranney, Christopher Referring Unavailable Ranburns, [facility] Primary Care Unavailable Jessy Wade Attending Unavailable Ranburns, [facility] Primary Care Unavailable Ian DALY, Chapo Attending Unavailable Chapo Neves NP Referring Unavailable Ranburns, [facility] Primary Care Unavailable Brian Rivers Attending Unavailable Ranburns, Christopher Referring Unavailable Ranburns, [facility] Primary Care Unavailable Josue Leal Attending Unavailable Dangelo Verde Unavailable Ranburns, Christopher Attending Unavailable [facility], [place] Primary Care Unavailable Ranburns, [facility] Primary Care Unavailable Juni Epstein Attending Unavailable [facility], Christopher Attending Unavailable [facility], [facility] Primary Care Unavailable Ranburns, [facility] Primary Care Unavailable Juni Epstein Attending Unavailable Darron Epsteinril Referring Unavailable [facility], [facility] Primary Care Unavailable Senait Dick Attending Unavailabl e Senait Dick Referring Unavailabl e Joanna Saavedra NP Unavailable Ranburns, [place] Primary Care Unavailable Juni Epstein Attending Unavailable Darron Epsteinril Referring Unavailable Chapo Neves NP Consulting Unavailable Josue Leal Consulting Unavailable Ranney, Christopher Referring Unavailable Ranburns, [facility] Primary Care Unavailable Brandie Doran NP Attending Unavailable Ranney, Daniel Attending Unavailable [place], [facility] Primary Care Unavailable Ranney, Christopher Referring Unavailable Ranburns, [facility] Primary Care Unavailable Josue Leal Attending Unavailable Ranney, Christopher Referring Unavailable Ranb[facility], [facility] Primary Care Unavailable Senait Dick Attending Unavailabl e [facility] Ranney, Christopher Referring Unavailable Senait Dick Attending Unavailabl e Ran[facility]urns, [facility] Primary Care Unavailable Mauro Parker Attending Unavailable Brandie Doran NP Consulting Unavailable Andreea DALY, Brandie Referring Unavailable Daniel Lai Primary Care Unavailable Senait Dick Attending Senait Hernandez Referring Senait Hernandez Consulting UnavailDaniel Miller Attending Unavailable Daniel Lai Primary Care Unavailable Keri SUPPLY CHAIN ANALYST, Joanna Consulting Unavailable Daniel Lai Primary Care Unavailable Juni Epstein Attending Unavailable Juni Epstein Referring Unavailable Ian SUPPLY CHAIN ANALYST, Chapo Consulting Unavailable Josue Leal Consulting Unavailable Medications Current Medications Medication Drug Class(es) Dates Sig (Normalized) Sig (Original) acetaminophen 500 mg oral tablet (20 sources) Start: 11-09-2022 take 2 tablets by mouth once Acetaminophen 500 mg tablet Active 1000 mg PO ONCE November 09, 2022 9:54am Complies with drug therapy Start: 11-09-2022 take 1000 mg by mouth [...] TWICE A DAY November 09, 2022 1:00am Complies with drug therapy cholecalciferol 0.05 mg oral capsule (20 sources) Vitamin D Start: 11-09-2022 take 1 capsule by mouth twice daily Cholecalciferol (Vitamin D3) 50 mcg (2,000 unit) capsule Active 50 ug PO TWICE A DAY November 09, 2022 9:53am Complies with drug therapy Start: 01-19-2021 End: 11-09-2022 take 1 capsule [...] supplement docusate sodium 50 mg / sennosides, mcc 8.6 mg oral tablet (1 source) Start: 03-07-2022 End: 03-09-2022 take 1 tablet by mouth twice daily Senokot S 50 mg-8.6 mg oral tablet Dose = 2 tab(s), Oral, BID, Take until first bowel movement, then as needed, # 20 tab(s), 0 Refill(s), Pharmacy: [facility]/pharmacy #[id number], 149.9, cm, 03/06/22 12:09:00 EDT, Height Start Date: 03/07/22 Stop Date: 03/09/22 Status: Ordered escitalopram 10 mg oral tablet (20 sources) Serotonin Reuptake Inhibitor Start: 02-26-2025 take 1 tablet by mouth once daily Start: 10-18-2023 End: 02-26-2025 take 4 tablets [...] 30 0 December 24, 2018 1:00am pain Complies with drug therapy melatonin 10 mg oral capsule (20 sources) Start: 02-19-2022 melatonin 10 m g oral capsule Dose : 10 mg = 1 cap(s), Oral, qHS, PRN for insomnia, # 90 cap(s), 0 Refill(s) Start Date: 02/19/22 Status: Ordered Start: 02-07-2022 take 10 mg by mouth at bedtime Melatonin 3 mg tablet Active 10 mg PO AT BEDTIME February 07, 2022 2:57pm sleep Complies with drug therapy Start: 02-07-2022 take 10 mg by mouth [...] tablet by mouth once daily as needed Start: 03-07-2022 End: 03-07-2022 metoprolol succinate 50 [...] 02, 2017 12:00am December 11, 2017 8:24pm Krrbgjcz-Lej-Lfpq-Fa-Lutein (14 sources) Start: 03-02-2017 Wuafcbsa-Kda-C vvb-Gr-Hketto Active 1 EACH PO DAILY March 02, 2017 2:40pm Start: 03-02-2017 Fucitxyi-Hqm-X lym-Lr-Kzjtvc Active 1 EACH PO DAILY March 01, 2017 11:00pm Start: 03-02-2017 Tribyncu-Bcg-T xeo-Aw-Wmvauz Active 1 EACH PO DAILY March 02, 2017 12:00am Livwponq-Wij-Axtz-Fa-Vit K-L ut (10 sources) Start: 03-02-2017 Jbzytvvh-Rej-E aruna-Fa-Vit K-Lut Active 1 EACH PO DAILY March 01, 2017 11:00pm Start: 03-02-2017 Fonqgwmh-Bax-O aruna-Fa-Vit K-Lut Active 1 EACH PO DAILY March 02, 2017 12:00am Mtnppelz-Agb-Oxhf-Fa-Vit K-Lut 1 EACH tablet (14 sources) Start: 03-02-2017 take 1 tablet by mouth once daily Pypnilze-Wwa-Ozph-Fa-Vit K-Lut 1 EACH tablet Active 1 NMA PO DAILY March 02, 2017 12:00am supplement Complies with drug therapy Start: 03-02-2017 take 1 tablet by jaspreet th once daily Hkajoayw-Enx-Dvpa-Fa-Vit K-Lut 1 EACH tablet Active 1 NMA PO DAILY March 02, 2017 12:00am supplement Start: 03-02-2017 take 1 tablet by jaspreet th once daily Mvnwlioq-Zan-Shgg-Fa-Vit K-Lut 1 EACH tablet Active 1 NMA [...] tab(s), 0 Refill(s), 03/14/22 7:38:00 EDT, Pharmacy: [facility]/pharmacy #[id number], S/p reverse total shoulder arthroplasty, 149.9, [...] mg PO DAILY August 09, 2021 12:00am Complies with drug therapy vitamin b6 100 mg oral tablet (20 sources) Start: 03-02-2019 End: 11-09-2022 take 1 tablet by mouth once daily Pyridoxine (Vitamin B6) 100 mg tablet Active 100 mg PO DAILY November 09, 2022 9:53am supplement Complies with drug therapy Start: 03-02-2017 End: 12-24-2018 Pyridoxine (Vitamin B6) 50 M G tablet Discontinued 100 mg PO DAILY March 02, 2017 12:00am December 24, 2018 12:08pm Vitamin D3 (2 sources) Start: 02-19-2022 Vitamin D3 Dos e : 2,000 unit(s) = 1 tab(s), Oral, Daily, # 60 tab(s), 0 Refill(s) Start Date: 02/19/22 Status: Ordered warfarin sodium 3 mg oral tablet (20 sources) Vitamin K Antagonist Start: 04-23-2024 End: 09-08-2025 take 0.5 tablet by mouth every week as needed Start: 08-29-2019 End: 04-23-2024 Warfarin 3 mg tablet Discont inued 3 mg PO DAILY Protocol: Condition: Saturday Dose/Route: 1.5 mg Instructions: 0.5 x 3 mg tablets Condition: Saturday Dose/Route: 3 mg Instructions: 1 x 3 mg tablet Condition: Saturday Dose/Route: 3 mg Instructions: 1 x 3 mg tablet Condition: Saturday Dose/Route: 1.5 mg Instructions: 0.5 x 3 mg tablets Condition: Dose/Route: 1.5 mg Instructions: 0.5 x 3 mg tablets Condition: Saturday Dose/Route: 1.5 mg Instructions: 0.5 x 3 mg tablets Condition: Saturday Dose/Route: 1.5 mg Instructions: 0.5 x 3 mg tablets 90 3 February 17, 2024 10:48am March 16, 2024 11:39am 3mg Sat and and 1.5mg Lcu-Klzuk-Zti-Sat-Sun; or use as directed Start: 08-29-2019 End: 04-23-2024 Warfarin 3 mg tablet Discont inued 1.5 mg PO .WTFRSA 60 3 October 16, 2022 2:20pm April 23, 2024 2:15pm Please contact the information source for Protocol details. Start: 08-29-2019 End: 10-16-2022 Warfarin Discontinued 1.5 MG PO WETHFRSA 60 January 19, 2021 3:24pm October 16, 2022 2:20pm Start: 03-25-2019 End: 08-29-2019 take 0.5 tablet by mouth every month Warfarin 3 mg tablet Discontinued 3 mg P O .COMPLEX Protocol: Patient Instructed to take:warfarin 3 mg (1 Tab) on DYER, MOwarfarin 3 mg (0.5 Tab) on , , , FR, SA 90 3 June 30, 2019 4:43pm August 29, 2019 1:57pm afib 3 mg PO , Weds, Sat and 0.5 tablets (1.5 mg) , , Sat and Sat Please contact the information source for Protocol details. Start: 03-13-2019 End: 03-25-2019 Warfarin 3 MG tablet Discont inued 3 mg PO MOWEFR Protocol: Patient Instructed to take:warfarin 3 mg (0.5 Tab) on DYER, MO, TU, SAwarfarin 3 mg (1 Tab) on , , FR March 13, 2019 8:20am March 25, 2019 10:36am afib Please contact the information source for Protocol details. Start: 03-13-2019 End: 03-25-2019 take 1.5 mg by mouth once Warfarin 3 MG tablet Discont inued 1.5 mg PO every Saturday, , Th, Sat March 13, 2019 12:00am March 25, 2019 10:36am afib Start: 03-13-2019 End: 03-25-2019 take 1.5 mg by mouth once Warfarin Discontinued 1.5 MG PO every Saturday, , , Sat March 13, 2019 12:00am March 25, 2019 10:36am Start: 12-26-2017 End: 03-13-2019 take 0.5 tablet by mouth every month Warfarin 3 mg tablet Discontinued 3 mg P O .COMPLEX Protocol: Patient Instructed to take:warfarin 3 mg (0.5 Tab) on DYER, MO, TU, SAwarfarin 3 mg (1 Tab) on , , FR 90 May 26, 2018 11:38am March 13, 2019 8:20am 3 mg PO Saturday through Saturday: take 0.5 tablets (1.5 mg) on Sat,Sat, Sat; and 1 tablet by mouth the other days Please contact the information source for Protocol details. Start: 12-26-2017 End: 03-13-2019 Warfarin 3 mg tablet Discont inued 3 mg PO .COMPLEX 90 May 26, 2018 11:38am March 13, 2019 8:20am 3 mg PO Saturday through Saturday: take 0.5 tablets (1.5 mg) on Sat,Sat, Sat; and 1 tablet by mouth the other days Please contact the information source for Protocol details. Start: 03-02-2017 End: 12-26-2017 Warfarin 2.5 MG tablet Disco ntinued 2.5 mg PO MOTUWETHFR Protocol: Patient Instructed to take:warfarin 3 mg (0.5 Tab) on SUwarfarin 3 mg (1 Tab) on MO, TU, WE, TH, FR, SA March 02, 2017 12:00am December 26, 2017 11:32am Please contact the information source for Protocol details. Start: 03-02-2017 End: 12-26-2017 Warfarin 3 MG tablet Discont inued 3 mg PO SUSA Protocol: Patient Instructed to take:warfarin 3 mg (0.5 Tab) on SUwarfarin 3 mg (1 Tab) on MO, TU, WE, TH, FR, SA March 02, 2017 12:00am December 26, 2017 11:33am Please contact the information source for Protocol details. Start: 03-02-2017 End: 12-26-2017 Warfarin 2.5 MG tablet Disco ntinued 2.5 mg PO MOTUWETHFR March 02, 2017 12:00am December 26, 2017 11:32am Please contact the information source for Protocol details. Completed/Discontinued Medications Medication Drug Class(es) Dates Sig [...] 4 HOURS NEEDED as needed for Pain 30 March 17, 2019 12:00am March 22, 2019 12:00am [...] 500 mg PO EVERY 8 HOURS 4 March 06, 2017 12:00am December 24, 2018 12:06pm atorvastatin 10 mg oral tablet (20 sources) HMG-CoA Reductase Inhibitor Start: 08-09-2021 End: 03-22-2025 take 1 tablet by mouth once daily Atorvastatin 10 mg tablet Discontinued 10 mg PO DAILY 30 June 16, 2024 11:39am March 22, 2025 12:30pm bisacodyl 10 mg rectal suppository (20 sources) Stimulant Laxative Start: 03-06-2017 End: 12-24-2018 take 10 mg rectal route once daily as needed for constipation Bisacodyl 10 MG suppository Discontinued 10 mg RECTAL DAILY as needed for Constipation 30 March 06, 2017 12:00am December 24, 2018 [...] 2022 9:55am celecoxib 100 mg oral capsule (20 sources) Nonsteroidal Anti-inflammatory Drug Start: 08-20-2023 End: [...] 2018 12:08pm estradiol 0.1 mg/ml vaginal cream (8 sources) Estrogen Start: 05-25-2025 End: 07-23-2025 Estradiol [...] tablet Discontinued 40 mg PO DAILY 30 3 June 16, 2024 11:40am March 10, 2025 10:44am losartan potassium 100 mg oral tablet (20 sources) Angiotensin 2 Receptor Tonia Start: 10-15-2019 End: 03-22-2025 take 1 tablet by mouth once daily Losartan 100 mg tablet Discontinued 100 mg PO DAILY 30 3 June 16, 2024 11:40am March 22, 2025 [...] 24, 2018 1:00am January 06, 2019 5:39pm [place]-3 Fatty Acids (20 sources) Start: 03-02-2017 End: 12-24-2018 take 360 mg by mouth once daily [place]-3 Fatty Acids Discontinued 360 MG PO DAILY March 02, 2017 2:40pm December 24, 2018 12:08pm Start: 03-02-2017 End: 12-24-2018 take 360 mg by mouth once daily [place]-3 Fatty Acids Discontinued 360 MG PO DAILY March 01, 2017 11:00pm December 24, 2018 11:08am Start: 03-02-2017 End: 12-24-2018 take 360 mg by mouth once daily [place]-3 Fatty Acids Discontinued 360 MG PO DAILY March 02, 2017 12:00am December 24, 2018 12:08pm [place]-3 Fatty Acids 300 MG capsule (14 sources) Start: 03-02-2017 End: 12-24-2018 take 1 capsule by mouth once daily [place]-3 Fatty Acids 300 MG capsule Discontinued 360 mg PO DAILY March 02, 2017 12:00am December 24, 2018 12:08pm tamoxifen 20 mg oral tablet (20 sources) Estrogen Agonist/Antagon ist Start: 06-09-2019 End: 07-23-2025 take 1 tablet [...] Date: 02/19/22 Stop Date: 03/05/22 Status: Ordered Problems Active Problems Problem Classification Problem Date Documented Da te Episodic/Chronic Administrative/social admission (20 sources) Patient encounter status; Translations: [Counseling, unspecified] Episodic Anxiety disorders (1 source) Anxiety disorder; Translations: [Anxiety disorder, unspecified] Onset: 03-06-2022 Chronic Aortic; peripheral; and visceral artery aneurysms (19 sources) Aortic root dilatation; Translations: [Thoracic aortic ectasia] 05-18-2025 Chronic Cancer of breast (20 sources) Malignant tumor of breast ; Translations: [Malignant neoplasm of unspecified site of right female breast] Onset: 04-06-2025 Chronic Cancer of breast (20 sources) History of malignant neoplasm of breast; Translations: [Personal history of malignant neoplasm of breast] Onset: 09-14-2025 Episodic Comment on above: Right Breast Cancer stage IA(pT1c pN0 M0), ER/TN positive, Her2 negative on adjuvant Tamoxifen.Tumor size 2cm, Lymph nodes negative.S/P Right breast lumpectomy and sentinel node biopsy.Finished Adjuvant Radiation therapy on 05/20/2019.Started Adjuvant Tamoxifen on 06/09/2020. CT 06/13/2021 shows non specific lung nodules which are stable.Comes for follow up.Labs reviewed.No evidence of disease clinically Right Breast Cancer stage IA(pT1c pN0 M0), ER/TN positive, Her2 negative on adjuvant Tamoxifen.Tumor size 2cm, Lymph nodes negative.S/P Right breast lumpectomy and sentinel node biopsy.Finished Adjuvant Radiation therapy on 05/20/2019.Started Adjuvant Tamoxifen on 06/09/2020. CT 06/13/2021 shows non specific lung nodules which are stable.Comes for follow up.Labs reviewed, within normal limits.No evidence of disease clinically Cardiac dysrhythmias (20 sources) Paroxysmal atrial flutter; Translations: [Unspecified atrial flutter] Onset: 03-06-2022 Chronic Comment on above: RFA 03/20/2011 Chronic kidney disease (11 sources) Chronic kidney disease; Translations: [Chronic kidney disease, unspecified] 05-01-2025 Chronic Conditions associated with dizziness or vertigo (20 sources) Lightheadedness; Translations: [Dizziness and giddiness] 10-14-2019 Episodic Deficiency and other anemia (11 sources) Chronic anemia; Translations: [Anemia, unspecified] 05-01-2025 Episodic Diabetes mellitus without complication (2 sources) Type 2 diabetes mellitus without complication; Translations: [Type 2 diabetes mellitus without complications] Onset: 03-06-2022 Chronic Disorders of lipid metabolism (20 sources) Hyperlipidemia; Translations: [Hyperlipidemia, unspecified] Onset: 11-19-2024 Chronic E Codes: Fall (20 sources) Fall; Translations: [Unspecified fall, initial encounter] 08-30-2019 Episodic Essential hypertension (20 sources) Essential hypertension; Translations: [Essential (primary) hypertension] Onset: 03-06-2022 Chronic Genitourinary symptoms and ill-defined conditions (11 sources) Urge incontinence of urine; Translations: [Urge incontinence] Onset: 08-16-2025 08-16-2025 Chronic Genitourinary symptoms and ill-defined conditions (10 sources) Retention of urine; Translations: [Retention of [...] unspecified; Translations: [Vitamin D deficiency, unspecified] Onset: 09-01-2025 Chronic Osteoporosis (20 sources) Osteoporosis; Translations: [Age-related osteoporosis without current pathological fracture] Onset: 09-14-2025 Chronic Other aftercare (20 sources) Long-term current use of anticoagulant; Translations: [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] 01-19-2021 Episodic Other aftercare (2 sources) 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; Translations: [detention (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 of anticoagulants] Onset: 04-06-2025 Episodic Other circulatory disease (11 sources) H/O: atrial fibrillation; Translations: [Personal history of other diseases of the circulatory system] 05-01-2025 Episodic Other connective tissue disease (1 source) Shoulder joint prosthesis present; Translations: [Presence of unspecified artificial shoulder joint] Onset: 03-06-2022 Chronic Other female genital disorders (20 sources) Vaginal mass; Translations: [Other specified noninflammatory disorders of vagina] 04-06-2025 Episodic Other gastrointestinal disorders (10 sources) Constipation; Translations: [Constipation, unspecified] 08-16-2025 Episodic Other lower respiratory disease (20 sources) Multiple nodules of lung; Translations: [Other nonspecific abnormal finding of lung field] 06-15-2021 Episodic Comment on above: Clinically stable fo r 2 yrs, Other lower respiratory disease (20 sources) Other nonspecific abnormal finding of lung field; Translations: [Other nonspecific abnormal finding of lung field] Onset: 09-14-2025 Episodic Other lower respiratory disease (20 sources) Dyspnea; Translations: [Dyspnea, unspecified] 04-24-2022 Episodic Other lower respiratory disease (4 sources) Shortness of breath; Translations: [Shortness of breath] Episodic Other nutritional; endocrine; and metabolic disorders (20 sources) Obesity; Translations: [Obesity, unspecified] 08-13-2022 Chronic Other nutritional; endocrine; and metabolic disorders (4 sources) Obesity, unspecified; Translations: [Obesity, unspecified] 09-26-2023 Chronic Other screening for suspected conditions (not mental disorders or infectious disease) (1 source) Encounter for screening mammogram for malignant neoplasm of breast; Translations: [Encounter for screening mammogram for malignant neoplasm of breast] Onset: 09-14-2025 Episodic Pulmonary heart disease (20 sources) Secondary pulmonary [...] Other Problems Problem Classification Problem Date Documented Date Episodic/Chronic Cardiac dysrhythmias (12 sources) Palpitations; Translations: [Palpitations] Onset: 05-07-2025 05-01-2025 Episodic Other female genital disorders (1 source) Other specified noninflammatory disorders of vagina; Translations: [Other specified noninflammatory disorders of vagina] Onset: 06-07-2025 Episodic Other lower respiratory disease (8 sources) Dyspnea, unspecified; Translations: [Other respiratory abnormalities] Onset: 06-07-2025 Episodic Residual codes; unclassified (1 source) Estrogen receptor positive status [ER+]; Translations: [Estrogen receptor positive status [ER+]] Onset: 04-06-2025 Episodic Results Test Name Value Interpretation Reference Range Facility Absolute lymphocyte countOrd ered By: Josue Leal on 09-14-2025 Lymphocytes Auto (Unsp spec) [#/Vol] 2.39 10*3/uL 0.83-4.51 [facility] Absolute neutrophil countOrd ered By: Josue Leal on 09-14-2025 Neutrophils (Bld) [#/Vol] 2.9 10*3/uL 2.0-7.7 [facility] Anion gap in Serum or Plasma Ordered By: Josue Leal on 09-14-2025 Anion gap [Moles/Vol] 10 mmol/L -15 [facility] Automated lymphocyte count a s percentage of total leukocytesOrdered By: Josue Leal on 09-14-2025 Lymphocytes/100 WBC Auto (Unsp spec) 41.7 % High 19- [facility] BUN/creatinine ratioOrdered By: Josue Leal on 09-14-2025 Urea nitrogen/Creatinine [Mass ratio] 13.7 mg/mg 10- [facility] Basophil percentageOrdered B y: Josue Leal on 09-14-2025 Basophils/100 WBC (Bld) 0.7 % 0-1 [facility] Bilirubin, totalOrdered By: Josue Leal on 09-14-2025 Bilirubin [Mass/Vol] 0.38 mg/dL 0.00-1.30 [facility] CBC W/Diff, Automatedon 09-01 Absolute Lymph 2.39 X10 3/uL Normal 0.83-4.51 [facility] Comment on above: Performed By: #### L 300.3900 #### [facility] [address] [place], [address] Absolute Neut 2.9 X10 3/uL Normal 2.0-7.7 [facility] Comment on above: Performed By: #### L 300.3900 #### [facility] [address] [place], [address] Basophils/100 WBC (Bld) 0.7 % Normal 0-1 [facility] Comment on above: Performed By: #### L 300.3900 #### [facility] [address] [place], [address] Eosinophils/100 WBC (Bld) 3.7 % Normal 0-5 [facility] Comment on above: Performed By: #### L 300.3900 #### [facility] [address] [place], [address] Erythrocyte distribution width (RBC) [Ratio] 13.6 % Normal 11.6-14.6 [facility] Comment on above: Performed By: #### L 300.3900 #### [facility] [address] [place], [address] Hematocrit (Bld) [Volume fraction] 35.1 % Low 37-47 [facility] Comment on above: Performed By: #### L 300.3900 #### [facility] [address] [place], [address] Hemoglobin (Bld) [Mass/Vol] 11.3 g/dL Low 12.0-15.0 [facility] Comment on above: Performed By: #### L 300.3900 #### [facility] [address] [place], [address] IG% 0.200 Normal 0.0-0.9 [facility] Comment on above: Result Comment: IG% - Immature Granulocytes (promyelocytes, myelocytes and metamyelocytes) > 1% indicates that a LEFT SHIFT is Present. Performed By: #### L 300.3900 #### [facility] [place], [address] Lymphocytes/100 WBC (Bld) 41.7 % High 19-41 [facility] Comment on above: Performed By: #### L 300.3900 #### [facility] [place], [address] MCH (RBC) [Entitic mass] 30.9 pg Normal 27.0-32.0 [facility] Comment on above: Performed By: #### L 300.3900 #### [facility] [address] [place], [address] MCHC (RBC) [Mass/Vol] 32.2 g/dL Normal 32-36 [facility] Comment on above: Performed By: #### L 300.3900 #### [facility] [address] [facility] [place], [address] MCV (RBC) [Entitic vol] 95.9 fL Normal 81-99 [facility] Comment on above: Performed By: #### L 300.3900 #### [facility] [address] [place], [address] Monocytes/100 WBC (Bld) 4.0 % Normal 0-10 [facility] Comment on above: Performed By: #### L 300.3900 #### [facility] [address] [place], [address] Neutrophils/100 WBC (Bld) 49.7 % Normal 47-70 [facility] Comment on above: Performed By: #### L 300.3900 #### [facility] [address] [place], [address] Nucleated RBC (Bld) [#/Vol] 0 10*3/uL Normal 0-5 [facility] Comment on above: Performed By: #### L 300.3900 #### [facility] [address] [place], [address] Platelet mean volume (Bld) [Entitic vol] 9.0 fL Normal 6.2-12.0 [facility] Comment on above: Performed By: #### L 300.3900 #### [facility] [address] [place], [address] Platelets (Bld) [#/Vol] 186 10*3/uL Normal 150-450 [facility] Comment on above: Performed By: #### L 300.3900 #### [facility] [address] [place], [address] RBC (Bld) [#/Vol] 3.66 10*6/uL Low 4.2-5.4 [facility] Comment on above: Performed By: #### L 300.3900 #### [facility] [address] [place], [address] RDW SD 48.6 fl High 35.1-43.9 [facility] Comment on above: Performed By: #### L 300.3900 #### [facility] [address] [place], [address] WBC (Bld) [#/Vol] 5.7 10*3/uL Normal 4.4-11.0 [facility] Comment on above: Performed By: #### L 300.3900 #### [facility] [address] [place], [address] Carbon dioxide, total [Moles /volume] in Central venous bloodOrdered By: Josue Leal on 09-14-2025 CO2 [Moles/Vol] 25.3 mmol/L 21.0-32.0 [facility] Chloride assayOrdered By: Rubi Leal on 09-14-2025 Chloride [Moles/Vol] 103 mmol/L 98-108 [facility] Comprehensive Metabolic Prof ilon 09-14-2025 Albumin [Mass/Vol] 3.9 g/dL Normal 3.4-4.8 [facility] Comment on above: Performed By: #### L 300.3900 #### [facility] [address] [place], [address] Albumin/Globulin [Mass ratio] 1.5 {ratio} Normal 0.9-2.4 [facility] Comment on above: Performed By: #### L 300.3900 #### [facility] [address] [place], [address] ALK PHOS 43 U/L Normal 35-104 [facility] Comment on above: Performed By: #### L 300.3900 #### [facility] [address] [place], [address] ALT [Catalytic activity/Vol] 21 U/L Normal <=34 [facility] Comment on above: Performed By: #### L 300.3900 #### [facility] [address] [place], [address] AST [Catalytic activity/Vol] 32 U/L Normal <=31 [facility] Comment on above: Performed By: #### L 300.3900 #### [facility] [address] [place], [address] Bilirubin [Mass/Vol] 0.38 mg/dL Normal 0.00-1.30 [facility] Comment on above: Performed By: #### L 300.3900 #### [facility] [address] [place], [address] BUN/CRE 13.7 RATIO Normal 10-20 [facility] Comment on above: Performed By: #### L 300.3900 #### [facility] [address] [place], [address] Calcium [Mass/Vol] 8.6 mg/dL Normal 7.6-11.0 [facility] Comment on above: Performed By: #### L 300.3900 #### [facility] [address] [place], [address] Chloride [Moles/Vol] 103 mmol/L Normal 98-108 [facility] Comment on above: Performed By: #### L 300.3900 #### [facility] [address] [place], [address] CO2 [Moles/Vol] 25.3 mmol/L Normal 21.0-32.0 [facility] Comment on above: Performed By: #### L 300.3900 #### [facility] [address] [place], [address] Creatinine [Mass/Vol] 1.34 mg/dL High 0.70-1.20 [facility] Comment on above: Performed By: #### L 300.3900 #### [facility] [address] [place], [address] ECRCL 32.41 ml/min Low 50-250 [facility] Comment on above: Performed By: #### L 300.3900 #### [facility] [address] [place], [address] GAP 10 Normal 5-15 [facility] Comment on above: Performed By: #### L 300.3900 #### [facility] [address] [place], [address] GFR/1.73 sq M.predicted among non-blacks MDRD (S/P/Bld) [Vol rate/Area] 40 mL/min/{1.73_m2} Low >60 [facility] Comment on above: Result Comment: mL/m in/1.73m2 CKD-EPI Creatinine Equation (2020) Performed By: #### L 300.3900 #### [facility] [address] [place], [address] Globulin (S) [Mass/Vol] 2.6 g/dL Normal 2.2-4.2 [facility] Comment on above: Performed By: #### L 300.3900 #### [facility] [address] [place], [address] Glucose [Mass/Vol] 240 mg/dL High 70-99 [facility] Comment on above: Performed By: #### L 300.3900 #### [facility] [address] [place], [address] Potassium [Moles/Vol] 5.4 mmol/L High 3.3-5.1 [facility] Comment on above: Performed By: #### L 300.3900 #### [facility] [address] [place], [address] Sodium [Moles/Vol] 138 mmol/L Normal 133-145 [facility] Comment on above: Performed By: #### L 300.3900 #### [facility] [address] [place], [address] T PROT 6.5 g/dL Normal 5.9-8.4 [facility] Comment on above: Performed By: #### L 300.3900 #### [facility] [address] [place], [place], [id number] Urea nitrogen [Mass/Vol] 18 mg/dL Normal 4-19 [facility] Comment on above: Performed By: #### L 300.3900 #### [facility] [address] [place], [place], [id number] Eosinophil percentageOrdered By: Josue Leal on 09-14-2025 Eosinophils/100 WBC (Bld) 3.7 % 0-5 [facility] Erythrocyte distribution wid th ratioOrdered By: [facility] on 09-14-2025 Erythrocyte distribution width (RBC) [Ratio] 13.6 % 11.6-14.6 [facility] Erythrocyte distribution wid th standard deviationOrdered By: [facility] Erythrocyte distribution width (RBC) [Ratio] 48.6 fl High 35.1-43.9 [facility] Glomerular filtration rate ( GFR) estimation/1.73 sq m using serum, plasma, or whole bOrdered By: Josue Juan on 09-14-2025 GFR/1.73 sq M.predicted among non-blacks MDRD (S/P/Bld) [Vol rate/Area] 40 mL/min/{1.73_m2} Low >60 [facility] Comment on above: mL/min/1.73m2 CKD-EP I Creatinine Equation (2020) Hematocrit Auto (Bld) [Volum e fraction]Ordered By: Josue Leal on 09-14-2025 Hematocrit (Bld) [Volume fraction] 35.1 % Low 37-47 [facility] Hemoglobin measurementOrdere d By: Josue Leal on 09-14-2025 Hemoglobin (Bld) [Mass/Vol] 11.3 g/dL Low 12.0-15.0 [facility] Immature granulocytes/100 WB C Auto (Bld)Ordered By: Josue Leal on 09-14-2025 Immature granulocytes/100 WBC (Bld) 0.200 % 0.0-0.9 [facility] Comment on above: IG% - Immature Granu locytes (promyelocytes, myelocytes and metamyelocytes) > 1% indicates that a LEFT SHIFT is Present. International normalized rat io (INR) calculationOrdered By: Juni Epstein on 09-14-2025 INR Coag (Bld) [Relative time] 2.3 {INR} [facility] LDHon 09-14-2025 LDH 167 U/L Normal 84-246 [facility] Comment on above: Order Comment: 1 Performed By: #### L 300.3900 #### [facility] [place], [place], [address] Laboratory - Chemistry and C hemistry - challengeOrdered By: Josue Leal on 09-14-2025 AST [Catalytic activity/Vol] 32 U/L <32 [facility] Lactate dehydrogenase (LDH) measurementOrdered By: Josue Leal on 09-14-2025 LDH [Catalytic activity/Vol] 167 U/L 84-246 [facility] MCV (mean corpuscular volume ) determinationOrdered By: Josue Leal on 09-14-2025 MCV (RBC) [Entitic vol] 95.9 fL 81-99 [facility] Mean corpuscular hemoglobin (MCH) determinationOrdered By: Josue Leal on 09-14-2025 MCH (RBC) [Entitic mass] 30.9 pg 27.0-32.0 [facility] Mean corpuscular hemoglobin concentration (MCHC) determinationOrdered By: Josue Leal on 09-14-2025 MCHC (RBC) [Mass/Vol] 32.2 g/dL 32-36 [facility] Mean platelet volume determi nationOrdered By: Josue Leal on 09-14-2025 Platelet mean volume (Bld) [Entitic vol] 9.0 fL 6.2-12.0 [facility] Monocyte percentageOrdered B y: Josue Leal on 09-14-2025 Monocytes/100 WBC (Bld) 4.0 % 0-10 [facility] Neutrophil percentageOrdered By: Josue Leal on 09-14-2025 Neutrophils/100 WBC (Bld) 49.7 % 47-70 [facility] Nucleated red blood cell per centageOrdered By: Josue Leal on 09-14-2025 Nucleated RBC/100 WBC (Bld) [Ratio] 0 % 0-5 [facility] Oncology Visit Reporton 10 Oncology Visit Report [facility] [place] [facility] [place] [address] OFFICE VISIT Date of Service: 09/14/25 1414 MR#: [id number] Acct: [id number] Name: GAYATHRI CORREIA Rep #: [id number] : 1945 From: Josue Leal MD Age/Sex: 80/F Location: [facility] Status: Signed HPI Subjective Date of Service 09/14/25 Chief Complaint F/u for R breast cancer. History of Present Illness 80 y.o.woman presented with abnormal mammogram on 02/25/2019 showed 1.3 cm upper outer quadrant mass in the right breast. She had ultrasound-guided biopsy of right breast on 03/05/2019. 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 She had a right breast lumpectomy and sentinel node biopsy on 03/17/2019. Pathology showed Invasive ductal carcinoma with focal mucinous features, tumor size 2cm, grade 2, [place] node 1 is negative. Staging pT1c pN0. CT c/a/p on 03/31/2019 showed non-specific nodules, calcification in spleen. Bone scan on 04/03/2019 no metastatic disease. Bone density on 02/25/2019 showed Osteoporosis. She received adjuvant Radiation therapy from 04/29/2019-05/20/2019 . She started Adjuvant Tamoxifen on 06/09/2019. CT chest on 06/06/2020 showed stable nodules. CTA on 2showed stable lung nodules. Bone density on 08/21/22 showed worsening osteoporosis. Remains on Tamoxifen. Also on Reclast for osteoporosis. Comes for follow up. Feels well. [facility] Medical History Constipation Urge incontinence Urinary retention Dilated aortic [...] atrial flutter Spinal stenosis Essential (primary) hypertension detention (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 of anticoagulants Paroxysmal atrial fibrillation [...] type: does not use additional social history: Intake Vital Signs 03/22/25 13:36 09/14/25 14:14 Height 4 ft 10 in 4 ft 10 in Weight: 88.025 kg BMI 40.5 BP 109/69 Blood Pressure Location Lt brachial Position Sitting Respiration 18 Pulse 74 Pulse Source Monitor Temp 98.6 F Temperature Source Temporal Artery Pulse Oximetry (%) 96 Oxygen Delivery Method room air Intake Accompanied by: Self Is patient in pain?: No Allergies No Known Allergies Allergy (Verified 09/14/25 14:18) Medications ???Medication ???Instructions ???Recorded ???Confirmed ???Type [id number] 8 mg-folic 400 1 ea PO DAILY supplement 03/02/17 09/14/25 History mcg-K 50 mcg-lutein 300 mcg tablet gabapentin 300 mg capsule 300 mg PO BID pain 30 days #90 cap s 12/24/18 09/14/25 History coenzyme Q10 100 mg capsule 100 mg PO DAILY 08/09/21 09/14/25 History (Q-Sorb Co Q-10) melatonin 3 mg tablet 10 mg PO QHS sleep 02/07/22 History acetaminophen 500 mg tablet 1,000 mg PO ONCE 11/09/22 09/14/25 History calcium carbonate (Calcium 600) 600 mg PO BID 11/09/22 09/14/25 Hi story cholecalciferol (vitamin D3) 50 50 mcg PO BID 11/09/22 09/14/25 Hi story mcg (2,000 unit) capsule p (more content not included)... Normal [facility] Platelet countOrdered By: Rubi Leal on 09-14-2025 Platelets (Bld) [#/Vol] 186 10*3/uL 150-450 [facility] Potassium measurement (mass/ volume)Ordered By: Josue Leal on 09-14-2025 Potassium (Unsp spec) [Mass/Vol] 5.4 mmol/L High 3.3-5.1 [facility] Prothrombin Time w/INRon INR Coag (PPP) [Relative time] 2.3 {INR} Normal [facility] Comment on above: Performed By: #### L 300.3900 #### [facility] [address] [place], [place], [id number] PT Coag (PPP) [Time] 25.8 s High 11.7-14.9 [facility] Comment on above: Performed By: #### L 300.3900 #### [facility] [address] [place], [place], [id number] Prothrombin timeOrdered By: Juni Epstein on 09-14-2025 PT Coag (PPP) [Time] 25.8 s High 11.7-14.9 [facility] RBC Auto (Bld) [#/Vol]Ordere d By: Josue Leal on 09-14-2025 RBC (Bld) [#/Vol] 3.66 10*6/uL Low 4.2-5.4 [facility] Serum creatinine measurement (mass/volume)Ordered By: Josue Leal on 09-14-2025 Creatinine [Mass/Vol] 1.34 mg/dL High 0.70-1.20 [facility] Serum globulin measurementOr dered By: Josue Leal on 09-14-2025 Globulin (S) [Mass/Vol] 2.6 g/dL 2.2-4.2 [facility] Serum glucose measurement (m ass/volume)Ordered By: Josue Leal on 09-14-2025 Glucose [Mass/Vol] 240 mg/dL High 70-99 [facility] Serum or plasma alanine weston otransferase (ALT) measurementOrdered By: Josue Leal on 09-14-2025 ALT [Catalytic activity/Vol] 21 U/L <35 [facility] Serum or plasma albumin pk urement (mass/volume)Ordered By: Josue Leal on 09-14-2025 Albumin [Mass/Vol] 3.9 g/dL 3.4-4.8 [facility] Serum or plasma albumin/glob ulin mass ratioOrdered By: Josue Leal on 09-14-2025 Albumin/Globulin [Mass ratio] 1.5 {ratio} 0.9-2.4 [facility] Serum or plasma alkaline aakash sphatase measurementOrdered By: Josue Leal on 09-14-2025 ALP [Catalytic activity/Vol] 43 U/L 35-104 [facility] Serum or plasma calcium pk urement (mass/volume)Ordered By: Josue Leal on 09-14-2025 Calcium [Mass/Vol] 8.6 mg/dL 7.6-11.0 [facility] Serum or plasma urea nitroge n measurement (mass/volume)Ordered By: Josue Leal on 09-14-2025 Urea nitrogen [Mass/Vol] 18 mg/dL 4-19 [facility] Sodium levelOrdered By: Aram eLal on 09-14-2025 Sodium [Moles/Vol] 138 mmol/L 133-145 [facility] Total proteinOrdered By: Gonzalo Leal on 09-14-2025 Protein [Mass/Vol] 6.5 g/dL 5.9-8.4 [facility] White blood cell (WBC) count Ordered By: Josue Leal on 09-14-2025 WBC (Bld) [#/Vol] 5.7 10*3/uL 4.4-11.0 [facility] Prothrombin Time w/INRon INR Coag (PPP) [Relative time] 6.7 {INR} Invalid Interpretation Code [facility] Comment on above: Result Comment: CRIT ICAL VALUE CALLED TO DR EID 09/10/251945 Ana Mccormack. RESULTS READ BACK BY SAME. Performed By: #### L 300.3900, L506.1001 #### [facility] [address] [place], [address] PT Coag (PPP) [Time] 59.9 s High 11.7-14.9 [facility] Comment on above: Performed By: #### L 300.3900, L506.1001 #### [facility] [address] [place], [address] Pulmonary Visit Reporton Pulmonary Visit Report [facility] [address] [place], [place] [address] OFFICE VISIT Date of Service: 09/01/25 MR#: [id number] Acct: [id number] Name: GAYATHRI CORREIA Rep #: [id number] : 1945 Provider: JUAN Doran Age/Sex: 80/F Location: [place] Status: Signed Assessment and Plan Assessment and Plan (1) TERRY (obstructive sleep apnea): Status: Chronic Comment: AHI 47.9. Plan: She is using and benefiting from Pap therapy. Ordering a new device, her machine is 8 years old and is not transmitting data. It was also recently broken and requiring a repair. No indication for titration study at this time. Contact the office for any new or worsening symptoms in the meantime. Follow-up in 2 months to evaluate response on new machine. (2) Secondary pulmonary hypertension: Status: Chronic Plan: Symptomatically stable. She is using and benefiting from supplemental oxygen bleed into the PAP machine. (3) Obesity: Status: Chronic Qualifiers: Obesity type: [...] Continue to encourage weight loss. Plan Details Additional Comments: This note was generated with [employer] dictation software. It may contain incorrect words, spelling, and punctuation that were not noted in checking the note before signing. Portions of this documentation have been copied and pasted from previous office visit notes to provide a cohesive continuity of the history. The note has been reviewed, edited, and updated, as necessary. Follow Up: 2 Months HPI 6 M FU Chief Complaint: pap therapy HPI Comments Details: This patient presents to the office today for follow-up of her obstructive sleep apnea. She is ambulatory with use of a cane and on room air. She has not recently been seen in the ED or urgent care for any respiratory illness. She has not required any antibiotics or prednisone for any breathing problems. She is a lifelong never smoker. She is not currently on any inhalers. [...] hemoptysis. She wakes up feeling rested and refreshed. She reports that her machine is approximately 8 years old. He recently stopped working and the [employer] had it for 3 weeks trying to repair it. She is having some difficulty with dry mouth. She denies snoring through the mask. She is not having excessive nocturia. She is not having morning headaches. She denies nodding off to sleep unintentionally. Compliance report for the past 90 days shows 56 % compliance (due to nonfunctioning machine) and average use of 7 hours and 37 minutes per night. Compliance is noted to be 100% for the past 2 weeks, since the patient received a working machine. Current setting is AutoPap 5 to 20 cm water pressure with a 2 LPM oxygen bleed, typically being utilized 8.6-13.0 cm water. Residual AHI of 2.3 events per hour. Leaks do not appear to be problematic. Test results personally reviewed with the patient: Pulmonary stress test completed on May 18, 2025. Patient was able to ambulate total of 413 feet over the course of 6 minutes. She did not desaturate and does not currently qualify for supplemental oxygen. Intake Vital Signs 02/26/25 08:22 06/07/25 14:38 09/01/25 09:16 Height 4 ft 10 in 4 ft 10 in 4 ft 10 in Weight: 191 lb BMI 39.9 BP 124/73 H Blood Pressure Location Lt brachial Position Sitting Respiration 18 Pulse 72 Pulse Source Monitor Temp 97.3 F L Temperature Source Temporal Artery Pulse Oximetry (%) 94 Oxygen Delivery Method room air Intake Visit Reasons: 6 M FU Chief Complaint: 3 month f/u DME Vendor: kamilah Accompanied by: Self Allergies No Known Allergies Allergy (Verified 09/01/25 14:22) Medications ???Medication ???Instructions ???Recorded ???Confirmed ???Type plpqlvvk-fikr-kbbp 8 mg-folic 400 1 ea PO DAILY supplement 03/02/17 09/01/25 History mcg-K 50 mcg-lutein 300 mcg tablet gabapentin 300 mg capsule 300 mg PO BID pain 30 days #90 cap s 12/24/18 09/01/25 History coenzyme Q10 100 mg capsule 100 mg PO DAILY 08/09/21 09/01/25 History (Q-Sorb Co Q-10) melatonin 3 mg tablet 10 mg PO QHS sleep 02/07/22 History acetaminophen 500 mg tablet 1,000 mg PO ONCE 11/09 (more content not included)... Normal [facility] Microalb:Creat Ratio,Random URon 08-25-2025 Creatinine [Mass/Vol] 59.40 mg/dL Normal 28.00-217.00 [facility] Comment on above: Order Comment: Order Date: 08/25/25Order Info: [id number] - MIALB Performed By: #### L 352.9542 #### [facility] [place], [address] MALB:CREAT UNABLE TO CALCULATE Normal <30 mg/g CRE [facility] Comment on above: Order Comment: Order Date: 08/25/25Order Info: [id number] - MIALB Performed By: #### L 300.3900 #### [facility] [address] [facility] [id number] MICROALBUMIN,UR < 12.0 Normal <20 mg/L [facility] Comment on above: Order Comment: Order Date: 08/25/25Order Info: [id number] - MIALB Performed By: #### L 300.3900 #### [facility] [address] [facility] [facility] [id number] Microalbumin/creat ratio urO rdered By: Daniel Lai on 08-25-2025 Urine microalbumin/creatinine ratio measurement UNABLE TO CALCULATE mg/g CRE <30 [facility] Random urine creatinine pk urement (mass/volume)Ordered By: Daniel Lai on 08-25-2025 Creatinine Unsp time (U) [Mass/Vol] 59.40 mg/dL 28.00-217.00 [facility] Urine albumin measurement wi th detection limit of 20 mg/L or less (mass/volume)Ordered By: Daniel Lai on 08-25-2025 Albumin DL <= 20 mg/L (U) [Mass/Vol] < 12.0 mg/L <20 mg/L [facility] International normalized rat io (INR) measurement by fingerstickOrdered By: Juni Epstein on 08-24-2025 INR Coag (BldC) [Relative time] 2.7 [facility] Comment on above: Critical Value > 4.0 Prothrombin Time w/INRon INR Normal [facility] Comment on above: Result Comment: FING ERSTICK Performed By: #### L 300.3900 #### [facility] [address] [place], [place], [phone] PROTIME Normal 11.7-14.9 [facility] Comment on above: Result Comment: FING ERSTICK Performed By: #### L 300.3900 #### [facility] [address] [place], [place], [address] Protime w/INR Fingerstickon 08-24-2025 INR Coag (PPP) [Relative time] 2.7 {INR} Normal [facility] Comment on above: Result Comment: Crit ical Value > 4.0 Performed By: #### L 9200.0000 ####[facility] [address] [place], [place], [address] Protime Co[place]en 28.2 SEC High 11.7-14.9 [facility] Comment on above: Performed By: #### L 9200.0000 ####[facility] [address] [place], [place], [phone] Whole blood prothrombin time Ordered By: Juni Epstein on 08-24-2025 PT Coag (Bld) [Time] 28.2 s High 11.7-14.9 [facility] Absolute lymphocyte countOrd ered By: Daniel Lai on 08-17-2025 Lymphocytes Auto (Unsp spec) [#/Vol] 1.92 10*3/uL 0.83-4.51 [facility] Absolute neutrophil countOrd ered By: Daniel Lai on 08-17-2025 Neutrophils (Bld) [#/Vol] 2.7 10*3/uL 2.0-7.7 [facility] Anion gap in Serum or Plasma Ordered By: Daniel Lai on 08-17-2025 Anion gap [Moles/Vol] 10 mmol/L 5-15 [facility] Automated lymphocyte count a s percentage of total leukocytesOrdered By: Daniel Lai on 08-17-2025 Lymphocytes/100 WBC Auto (Unsp spec) 36.5 % 19-41 [facility] BUN/creatinine ratioOrdered By: Daniel Lai on 08-17-2025 Urea nitrogen/Creatinine [Mass ratio] 16.0 mg/mg 10-20 [facility] Basophil percentageOrdered B y: Daniel Lai on 08-17-2025 Basophils/100 WBC (Bld) 0.8 % 0-1 [facility] Bilirubin, totalOrdered By: Daniel Lai on 08-17-2025 Bilirubin [Mass/Vol] 0.27 mg/dL 0.00-1.30 [facility] CBC W/Diff, Automatedon 08-02 Absolute Lymph 1.92 X10 3/uL Normal 0.83-4.51 [facility] Comment on above: Order Comment: Order Date: 08/16/25Order Info: [id number] - CBCDINR RESULTS GO TO Performed By: #### L 500.4100, L500.4050, L100.0100, L501.9520 ####[facility] [address] [place], [address] Absolute Neut 2.7 X10 3/uL Normal 2.0-7.7 [facility] Comment on above: Order Comment: Order Date: 08/16/25Order Info: [id number] - CBCDINR RESULTS GO TO Performed By: #### L 500.4100, L500.4050, L100.0100, L501.9520 ####[facility] [address] [place], [address] Basophils/100 WBC (Bld) 0.8 % Normal 0-1 [facility] Comment on above: Order Comment: Order Date: 08/16/25Order Info: [id number] - CBCDINR RESULTS GO TO Performed By: #### L 500.4100, L500.4050, L100.0100, L501.9520 ####[facility] [address] [place], [address] Eosinophils/100 WBC (Bld) 4.6 % Normal 0-5 [facility] Comment on above: Order Comment: Order Date: 08/16/25Order Info: [id number] - CBCDINR RESULTS GO TO Performed By: #### L 500.4100, L500.4050, L100.0100, L501.9520 ####[facility] [address] [place], [place], [id number] Erythrocyte distribution width (RBC) [Ratio] 13.8 % Normal 11.6-14.6 [facility] Comment on above: Order Comment: Order Date: 08/16/25Order Info: [id number] - CBCDINR RESULTS GO TO Performed By: #### L 500.4100, L500.4050, L100.0100, L501.9520 ####[facility] [address] [place], [address] Hematocrit (Bld) [Volume fraction] 34.9 % Low 37-47 [facility] Comment on above: Order Comment: Order Date: 08/16/25Order Info: [id number]- - CBCDINR RESULTS GO TO Performed By: #### L 500.4100, L500.4050, L100.0100, L501.9520 ####[facility] [address] [facility] [place], [address] Hemoglobin (Bld) [Mass/Vol] 11.3 g/dL Low 12.0-15.0 [facility] Comment on above: Order Comment: Order Date: 08/16/25Order Info: [id number]- - CBCDINR RESULTS GO TO Performed By: #### L 500.4100, L500.4050, L100.0100, L501.9520 ####[facility] [address] [facility] [address] [place], [address] IG% 0.200 Normal 0.0-0.9 [facility] Comment on above: Order Comment: Order Date: 08/16/25Order Info: [id number] - CBCDINR RESULTS GO TO Result Comment: IG% - Immature Granulocytes (promyelocytes, myelocytes and metamyelocytes) > 1% indicates that a LEFT SHIFT is Present. Performed By: #### L 500.4100, L500.4050, L100.0100, L501.9520 ####[facility] [address] [place], [address] Lymphocytes/100 WBC (Bld) 36.5 % Normal 19-41 [facility] Comment on above: Order Comment: Order Date: 08/16/25Order Info: [id number] - CBCDINR RESULTS GO TO Performed By: #### L 500.4100, L500.4050, L100.0100, L501.9520 ####[facility] [address] [place], [address] MCH (RBC) [Entitic mass] 31.6 pg Normal 27.0-32.0 [facility] Comment on above: Order Comment: Order Date: 08/16/25Order Info: [id number] - CBCDINR RESULTS GO TO Performed By: #### L 500.4100, L500.4050, L100.0100, L501.9520 ####[facility] [address] [place], [address] MCHC (RBC) [Mass/Vol] 32.4 g/dL Normal 32-36 [facility] Comment on above: Order Comment: Order Date: 08/16/25Order Info: [id number] - CBCDINR RESULTS GO TO Performed By: #### L 500.4100, L500.4050, L100.0100, L501.9520 ####[facility] [address] [place], [address] MCV (RBC) [Entitic vol] 97.5 fL Normal 81-99 [facility] Comment on above: Order Comment: Order Date: 08/16/25Order Info: [id number] - CBCDINR RESULTS GO TO Performed By: #### L 500.4100, L500.4050, L100.0100, L501.9520 ####[facility] [address] [place], [address] Monocytes/100 WBC (Bld) 6.3 % Normal 0-10 [facility] Comment on above: Order Comment: Order Date: 08/16/25Order Info: [id number] - CBCDINR RESULTS GO TO Performed By: #### L 500.4100, L500.4050, L100.0100, L501.9520 ####[facility] [address] [place], [address] Neutrophils/100 WBC (Bld) 51.6 % Normal 47-70 [facility] Comment on above: Order Comment: Order Date: 08/16/25Order Info: [id number] - CBCDINR RESULTS GO TO Performed By: #### L 500.4100, L500.4050, L100.0100, L501.9520 ####[facility] [address] [place], [address] Nucleated RBC (Bld) [#/Vol] 0 10*3/uL Normal 0-5 [facility] Comment on above: Order Comment: Order Date: 08/16/25Order Info: [id number] - CBCDINR RESULTS GO TO Performed By: #### L 500.4100, L500.4050, L100.0100, L501.9520 ####[facility] [address] [place], [address] Platelet mean volume (Bld) [Entitic vol] 9.6 fL Normal 6.2-12.0 [facility] Comment on above: Order Comment: Order Date: 08/16/25Order Info: [id number] - CBCDINR RESULTS GO TO Performed By: #### L 500.4100, L500.4050, L100.0100, L501.9520 ####[facility] [address] [place], [address] Platelets (Bld) [#/Vol] 219 10*3/uL Normal 150-450 [facility] Comment on above: Order Comment: Order Date: 08/16/25Order Info: [id number] - CBCDINR RESULTS GO TO Performed By: #### L 500.4100, L500.4050, L100.0100, L501.9520 ####[facility] [address] [place], [address] RBC (Bld) [#/Vol] 3.58 10*6/uL Low 4.2-5.4 [facility] Comment on above: Order Comment: Order Date: 08/16/25Order Info: 018- - CBCDINR RESULTS GO TO Performed By: #### L 500.4100, L500.4050, L100.0100, L501.9520 ####[facility] [address] [place], [address] RDW SD 49.4 fl High 35.1-43.9 [facility] Comment on above: Order Comment: Order Date: 08/16/25Order Info: [id number]- - CBCDINR RESULTS GO TO Performed By: #### L 500.4100, L500.4050, L100.0100, L501.9520 ####[facility] [address] [place], [address] WBC (Bld) [#/Vol] 5.3 10*3/uL Normal 4.4-11.0 [facility] Comment on above: Order Comment: Order Date: 08/16/25Order Info: [id number] - CBCDINR RESULTS GO TO Performed By: #### L 500.4100, L500.4050, L100.0100, L501.9520 ####[facility] [address] [place], [address] Calculated very low density lipoprotein (VLDL) cholesterol measurementOrdered By: Daniel Lai on 08-17-2025 Calculated very low density lipoprotein (VLDL) cholesterol measurement 20 mg/dL 5-40 [facility] Carbon dioxide, total [Moles /volume] in Central venous bloodOrdered By: Daniel Lai on 08-17-2025 CO2 [Moles/Vol] 26.9 mmol/L 21.0-32.0 [facility] Chloride assayOrdered By: Garima Lai on 08-17-2025 Chloride [Moles/Vol] 104 mmol/L 98-108 [facility] Comprehensive Metabolic Prof ilon 08-17-2025 Albumin [Mass/Vol] 3.9 g/dL Normal 3.4-4.8 [facility] Comment on above: Order Comment: Order Date: 08/16/25Order Info: [id number] - CMPOrder Info: [id number] - LIPIDOrder Info: [id number] - TSHINR RESULTS GO TO DR Performed By: #### L 500.4100, L500.4050, L100.0100, L501.9520 ####[facility] [address] [place], [address] Albumin/Globulin [Mass ratio] 1.4 {ratio} Normal 0.9-2.4 [facility] Comment on above: Order Comment: Order Date: 08/16/25Order Info: [id number] - CMPOrder Info: [id number] - LIPIDOrder Info: [id number] - TSHINR RESULTS GO TO DR Performed By: #### L 500.4100, L500.4050, L100.0100, L501.9520 ####[facility] [address] [place], [address] ALK PHOS 41 U/L Normal 35-104 [facility] Comment on above: Order Comment: Order Date: 08/16/25Order Info: [id number] - CMPOrder Info: [id number] - LIPIDOrder Info: [id number] - TSHINR RESULTS GO TO DR Performed By: #### L 500.4100, L500.4050, L100.0100, L501.9520 ####[facility] [address] [place], [address] ALT [Catalytic activity/Vol] 14 U/L Normal <=34 [facility] Comment on above: Order Comment: Order Date: 08/16/25Order Info: 86-1 - CMPOrder Info: [id number] - LIPIDOrder Info: [id number] - TSHINR RESULTS GO TO DR Performed By: #### L 500.4100, L500.4050, L100.0100, L501.9520 ####[facility] [address] [place], [address] AST [Catalytic activity/Vol] 24 U/L Normal <=31 [facility] Comment on above: Order Comment: Order Date: 08/16/25Order Info: [id number] - CMPOrder Info: [id number] - LIPIDOrder Info: 3 - TSHINR RESULTS GO TO DR Performed By: #### L 500.4100, L500.4050, L100.0100, L501.9520 ####[facility] [address] [place], [address] Bilirubin [Mass/Vol] 0.27 mg/dL Normal 0.00-1.30 [facility] Comment on above: Order Comment: Order Date: 08/16/25Order Info: [id number] - CMPOrder Info: [id number] - LIPIDOrder Info: 6-3 - TSHINR RESULTS GO TO DR Performed By: #### L 500.4100, L500.4050, L100.0100, L501.9520 ####[facility] [address] [place], [address] BUN/CRE 16.0 RATIO Normal 10-20 [facility] Comment on above: Order Comment: Order Date: 08/16/25Order Info: [id number] - CMPOrder Info: [id number] - LIPIDOrder Info: [id number] - TSHINR RESULTS GO TO DR Performed By: #### L 500.4100, L500.4050, L100.0100, L501.9520 ####[facility] [address] [place], [address] Calcium [Mass/Vol] 9.1 mg/dL Normal 7.6-11.0 [facility] Comment on above: Order Comment: Order Date: 08/16/25Order Info: [id number] - CMPOrder Info: [id number] - LIPIDOrder Info: [id number] - TSHINR RESULTS GO TO DR Performed By: #### L 500.4100, L500.4050, L100.0100, L501.9520 ####[facility] [address] [place], [address] Chloride [Moles/Vol] 104 mmol/L Normal 98-108 [facility] Comment on above: Order Comment: Order Date: 08/16/25Order Info: [id number]- - CMPOrder Info: [id number] - LIPIDOrder Info: [id number] - TSHINR RESULTS GO TO DR Performed By: #### L 500.4100, L500.4050, L100.0100, L501.9520 ####[facility] [address] [place], [address] CO2 [Moles/Vol] 26.9 mmol/L Normal 21.0-32.0 [facility] Comment on above: Order Comment: Order Date: 08/16/25Order Info: 07- - CMPOrder Info: [id number] - LIPIDOrder Info: [id number] - TSHINR RESULTS GO TO DR Performed By: #### L 500.4100, L500.4050, L100.0100, L501.9520 ####[facility] [address] [place], [address] Creatinine [Mass/Vol] 1.20 mg/dL Normal 0.70-1.20 [facility] Comment on above: Order Comment: Order Date: 08/16/25Order Info: [id number] - CMPOrder Info: [id number] - LIPIDOrder Info: [id number] - TSHINR RESULTS GO TO DR Performed By: #### L 500.4100, L500.4050, L100.0100, L501.9520 ####[facility] [address] [place], [address] GAP 10 Normal 5-15 [facility] Comment on above: Order Comment: Order Date: 08/16/25Order Info: [id number] - CMPOrder Info: [id number] - LIPIDOrder Info: [id number] - TSHINR RESULTS GO TO DR Performed By: #### L 500.4100, L500.4050, L100.0100, L501.9520 ####[facility] [address] [place], [address] GFR/1.73 sq M.predicted among non-blacks MDRD (S/P/Bld) [Vol rate/Area] 45 mL/min/{1.73_m2} Low >60 [facility] Comment on above: Order Comment: Order Date: 08/16/25Order Info: [id number] - CMPOrder Info: [id number] - LIPIDOrder Info: [id number] - TSHINR RESULTS GO TO DR Result Comment: mL/m in/1.73m2 CKD-EPI Creatinine Equation (2020) Performed By: #### L 500.4100, L500.4050, L100.0100, L501.9520 ####[facility] [address] [place], [address] Globulin (S) [Mass/Vol] 2.7 g/dL Normal 2.2-4.2 [facility] Comment on above: Order Comment: Order Date: 08/16/25Order Info: [id number] - CMPOrder Info: [id number] - LIPIDOrder Info: [id number] - TSHINR RESULTS GO TO DR Performed By: #### L 500.4100, L500.4050, L100.0100, L501.9520 ####[facility] [address] [place], [address] Glucose [Mass/Vol] 122 mg/dL High 70-99 [facility] Comment on above: Order Comment: Order Date: 08/16/25Order Info: [id number] - CMPOrder Info: [id number] - LIPIDOrder Info: [id number] - TSHINR RESULTS GO TO DR Performed By: #### L 500.4100, L500.4050, L100.0100, L501.9520 ####[facility] [address] [place], [address] Potassium [Moles/Vol] 4.5 mmol/L Normal 3.3-5.1 [facility] Comment on above: Order Comment: Order Date: 08/16/25Order Info: [id number] - CMPOrder Info: [id number] - LIPIDOrder Info: [id number] - TSHINR RESULTS GO TO DR Performed By: #### L 500.4100, L500.4050, L100.0100, L501.9520 ####[facility] [address] [place], [address] Sodium [Moles/Vol] 141 mmol/L Normal 133-145 [facility] Comment on above: Order Comment: Order Date: 08/16/25Order Info: [id number] - CMPOrder Info: [id number] - LIPIDOrder Info: [id number] - TSHINR RESULTS GO TO DR Performed By: #### L 500.4100, L500.4050, L100.0100, L501.9520 ####[facility] [address] [place], [address] T PROT 6.6 g/dL Normal 5.9-8.4 [facility] Comment on above: Order Comment: Order Date: 08/16/25Order Info: [id number] - CMPOrder Info: [id number] - LIPIDOrder Info: [id number] - TSHINR RESULTS GO TO DR Performed By: #### L 500.4100, L500.4050, L100.0100, L501.9520 ####[facility] [address] [place], [address] Urea nitrogen [Mass/Vol] 19 mg/dL Normal 4-19 [facility] Comment on above: Order Comment: Order Date: 08/16/25Order Info: [id number] - CMPOrder Info: [id number] - LIPIDOrder Info: [id number] - TSHINR RESULTS GO TO DR Performed By: #### L 500.4100, L500.4050, L100.0100, L501.9520 ####[facility] [address] [place], [place], [id number] Eosinophil percentageOrdered By: Daniel Lai on 08-17-2025 Eosinophils/100 WBC (Bld) 4.6 % 0-5 [facility] Erythrocyte distribution wid th ratioOrdered By: Daniel Lai on 08-17-2025 Erythrocyte distribution width (RBC) [Ratio] 13.8 % 11.6-14.6 [facility] Erythrocyte distribution wid th standard deviationOrdered By: Daniel Lai on 08-17-2025 Erythrocyte distribution width (RBC) [Ratio] 49.4 fl High 35.1-43.9 [facility] Glomerular filtration rate ( GFR) estimation/1.73 sq m using serum, plasma, or whole bOrdered By: Daniel Lai on 08-17-2025 GFR/1.73 sq M.predicted among non-blacks MDRD (S/P/Bld) [Vol rate/Area] 45 mL/min/{1.73_m2} Low >60 [facility] Comment on above: mL/min/1.73m2 CKD-EP I Creatinine Equation (2020) Hematocrit Auto (Bld) [Volum e fraction]Ordered By: Daniel Lai on 08-17-2025 Hematocrit (Bld) [Volume fraction] 34.9 % Low 37-47 [facility] Hemoglobin measurementOrdere d By: Daniel Lai on 08-17-2025 Hemoglobin (Bld) [Mass/Vol] 11.3 g/dL Low 12.0-15.0 [facility] Immature granulocytes/100 WB C Auto (Bld)Ordered By: Daniel Lai on 08-17-2025 Immature granulocytes/100 WBC (Bld) 0.200 % 0.0-0.9 [facility] Comment on above: IG% - Immature Granu locytes (promyelocytes, myelocytes and metamyelocytes) > 1% indicates that a LEFT SHIFT is Present. LDL calc ser/plasOrdered By: Daniel Lai on 08-17-2025 Cholesterol in LDL [Mass/Vol] 65 mg/dL [facility] Comment on above: Dtglzqqzbx=515-695 m g/dL & Higher Ctvi=013 mg/dL or greaterFriedwald Equation for LDL-C Laboratory - Chemistry and C hemistry - challengeOrdered By: Daniel Lai on 08-17-2025 AST [Catalytic activity/Vol] 24 U/L <32 [facility] Lipid Profileon 08-17-2025 CHOL:HDL 2.65 Normal [facility] Comment on above: Order Comment: Order Date: 08/16/25Order Info: [id number] - CMPOrder Info: [id number] - LIPIDOrder Info: [id number] - TSHINR RESULTS GO TO DR Performed By: #### L 300.3900 #### [facility] [address] [place], [address] Cholesterol [Mass/Vol] 136 mg/dL Normal <=200 [facility] Comment on above: Order Comment: Order Date: 08/16/25Order Info: [id number] - CMPOrder Info: [id number] - LIPIDOrder Info: [id number] - TSHINR RESULTS GO TO DR Result Comment: Chol esterol level, Desirable <200 mg/dL Borderline high cholesterol 200-239 mg/dL High cholesterol >=240 mg/dL Recommendations of the NCEP Adult Treatment Panel for the following risk-cutoff thresholds for the [place] population. Performed By: #### L 300.3900 #### [facility] [address] [place], [address] Cholesterol in HDL [Mass/Vol] 51 mg/dL Normal [facility] Comment on above: Order Comment: Order Date: 08/16/25Order Info: [id number] - CMPOrder Info: [id number] - LIPIDOrder Info: [id number] - TSHINR RESULTS GO TO DR Result Comment: Maggy onal Cholesterol Education Program (NCEP) guidelines: <40 mg/dL: Low HDL-cholesterol (major risk factor for CHD) >= 60 mg/dL: High HDL-cholesterol (negative risk factor for CHD) HDL-cholesterol is affected by a number of factors, e.g. smoking, exercise, hormones, sex and age. Performed By: #### L 300.3900 #### [facility] [address] [place], [address] Cholesterol in LDL [Mass/Vol] 65 mg/dL Normal [facility] Comment on above: Order Comment: Order Date: 08/16/25Order Info: [id number] - CMPOrder Info: [id number] - LIPIDOrder Info: [id number] - TSHINR RESULTS GO TO DR Result Comment: Bord iqhfmk=545-737 mg/dL Higher Chvr=447 mg/dL or greater Friedwald Equation for LDL-C Performed By: #### L 300.3900 #### [facility] [address] [place], [address] Cholesterol in VLDL [Mass/Vol] 20 mg/dL Normal 5-40 [facility] Comment on above: Order Comment: Order Date: 08/16/25Order Info: [id number] - CMPOrder Info: [id number] - LIPIDOrder Info: [id number] - TSHINR RESULTS GO TO DR Performed By: #### L 300.3900 #### [facility] [address] [place], [address] Triglyceride [Mass/Vol] 100 mg/dL Normal [facility] Comment on above: Order Comment: Order Date: 08/16/25Order Info: [id number] - CMPOrder Info: [id number] - LIPIDOrder Info: [id number] - TSHINR RESULTS GO TO DR Result Comment: The drugs N-Acetylcysteine and Metamizole may falsely depress this assay. Normal range: <150 mg/dL Borderline High: 150-199 mg/dL High: 200-499 mg/dL Very High: >500 mg/dL Performed By: #### L 300.3900 #### [facility] [address] [place], [address] MCV (mean corpuscular volume ) determinationOrdered By: Daniel Lai on 08-17-2025 MCV (RBC) [Entitic vol] 97.5 fL 81-99 [facility] Mean corpuscular hemoglobin (MCH) determinationOrdered By: Daniel Lai on 08-17-2025 MCH (RBC) [Entitic mass] 31.6 pg 27.0-32.0 [facility] Mean corpuscular hemoglobin concentration (MCHC) determinationOrdered By: Daniel Lai on 08-17-2025 MCHC (RBC) [Mass/Vol] 32.4 g/dL 32-36 [facility] Mean platelet volume determi nationOrdered By: Daniel Lai on 08-17-2025 Platelet mean volume (Bld) [Entitic vol] 9.6 fL 6.2-12.0 [facility] Monocyte percentageOrdered B y: Daniel Lai on 08-17-2025 Monocytes/100 WBC (Bld) 6.3 % 0-10 [facility] Neutrophil percentageOrdered By: Daniel Lai on 08-17-2025 Neutrophils/100 WBC (Bld) 51.6 % 47-70 [facility] Nucleated red blood cell per centageOrdered By: Daniel Lai on 08-17-2025 Nucleated RBC/100 WBC (Bld) [Ratio] 0 % 0-5 [facility] Platelet countOrdered By: Garima Lai on 08-17-2025 Platelets (Bld) [#/Vol] 219 10*3/uL 150-450 [facility] Potassium measurement (mass/ volume)Ordered By: Daniel Lai on 08-17-2025 Potassium (Unsp spec) [Mass/Vol] 4.5 mmol/L 3.3-5.1 [facility] Prothrombin Time w/INRon INR Coag (PPP) [Relative time] 1.7 {INR} Normal [facility] Comment on above: Order Comment: Order Date: 08/16/25 Order Info: [id number] - CMP Order Info: [id number] - LIPID Order Info: [id number] - TSH INR RESULTS GO TO DR Performed By: #### L 300.3900, L506.1001 #### [facility] [address] [place], [address] PT Coag (PPP) [Time] 20.1 s High 11.7-14.9 [facility] Comment on above: Order Comment: Order Date: 08/16/25 Order Info: [id number] - CMP Order Info: [id number] - LIPID Order Info: [id number] - TSH INR RESULTS GO TO DR Performed By: #### L 300.3900, L506.1001 #### [facility] [address] [place], [address] INR Normal [facility] Comment on above: Result Comment: DUPL ICATE Performed By: #### L 300.3900, L506.1001 #### [facility] [address] [place], [address] PROTIME Normal 11.7-14.9 [facility] Comment on above: Result Comment: DUPL ICATE Performed By: #### L 300.3900, L506.1001 #### [facility] [address] [place], [address] Prothrombin timeOrdered By: Juni Epstein on 08-17-2025 PT Coag (PPP) [Time] 20.1 s High 11.7-14.9 [facility] RBC Auto (Bld) [#/Vol]Ordere d By: Daniel Lai on 08-17-2025 RBC (Bld) [#/Vol] 3.58 10*6/uL Low 4.2-5.4 [facility] Screening total cholesterol/ high density lipoprotein (HDL) cholesterol ratioOrdered By: Daniel Lai on 08-17-2025 Cholesterol.total/Choles terol in HDL [Mass ratio] 2.65 {ratio} [facility] Serum creatinine measurement (mass/volume)Ordered By: Daniel Lai on 08-17-2025 Creatinine [Mass/Vol] 1.20 mg/dL 0.70-1.20 [facility] Serum globulin measurementOr dered By: Daniel Lai on 08-17-2025 Globulin (S) [Mass/Vol] 2.7 g/dL 2.2-4.2 [facility] Serum glucose measurement (m ass/volume)Ordered By: Daniel Lai on 08-17-2025 Glucose [Mass/Vol] 122 mg/dL High 70-99 [facility] Serum or plasma alanine weston otransferase (ALT) measurementOrdered By: Daniel Lai on 08-17-2025 ALT [Catalytic activity/Vol] 14 U/L <35 [facility] Serum or plasma albumin pk urement (mass/volume)Ordered By: Daniel Lai on 08-17-2025 Albumin [Mass/Vol] 3.9 g/dL 3.4-4.8 [facility] Serum or plasma albumin/glob ulin mass ratioOrdered By: Daniel Lai on 08-17-2025 Albumin/Globulin [Mass ratio] 1.4 {ratio} 0.9-2.4 [facility] Serum or plasma alkaline aakash sphatase measurementOrdered By: Daniel Lai on 08-17-2025 ALP [Catalytic activity/Vol] 41 U/L 35-104 [facility] Serum or plasma calcium pk urement (mass/volume)Ordered By: Daniel Lai on 08-17-2025 Calcium [Mass/Vol] 9.1 mg/dL 7.6-11.0 [facility] Serum or plasma cholesterol in HDL measurement (mass/volume)Ordered By: Daniel Lai on 08-17-2025 Cholesterol in HDL [Mass/Vol] 51 mg/dL >40 [facility] Comment on above: National Cholesterol Education Program (NCEP) guidelines:<40 mg/dL: Low HDL-cholesterol (major risk factor for CHD)>= 60 mg/dL: High HDL-cholesterol (negative risk factor for CHD)HDL-cholesterol is affected by a number of factors, e.g. smoking, exercise, hormones, sex and age. Serum or plasma cholesterol measurement (mass/volume)Ordered By: Dainel Lai on 08-17-2025 Cholesterol [Mass/Vol] 136 mg/dL <201 [facility] Comment on above: Cholesterol level, D esirable <200 mg/dLBorderline high cholesterol 200-239 mg/dLHigh cholesterol >=240 mg/dLRecommendations of the NCEP Adult Treatment Panel for the following risk-cutoff thresholds for the [place] population. Serum or plasma urea nitroge n measurement (mass/volume)Ordered By: Daniel Lai on 08-17-2025 Urea nitrogen [Mass/Vol] 19 mg/dL 4-19 [facility] Sodium levelOrdered By: Virgilio Lai on 08-17-2025 Sodium [Moles/Vol] 141 mmol/L 133-145 [facility] TSH DL <= 0.005 mIU/L QnOrde red By: Daniel Lai on 08-17-2025 TSH Qn 2.510 uIU/mL 0.300-4.200 [facility] Thyroid Stim Hormone (TSH)on 08-17-2025 TSH 2.510 uIU/mL Normal 0.300-4.200 [facility] Comment on above: Order Comment: Order Date: 08/16/25Order Info: [id number] - CMPOrder Info: [id number] - LIPIDOrder Info: [id number] - TSHINR RESULTS GO TO DR Performed By: #### L 300.3900 #### [facility] [address] [place], [place], [address] Total proteinOrdered By: Jeromy Lai on 08-17-2025 Protein [Mass/Vol] 6.6 g/dL 5.9-8.4 [facility] Triglycerides measurementOrd ered By: Daniel Lai on 08-17-2025 Triglyceride [Mass/Vol] 100 mg/dL <199 [facility] Comment on above: The drugs N-Acetylcy steine and Metamizole may falsely depress this assay. Normal range: <150 mg/dLBorderline High: 150-199 mg/dLHigh: 200-499 mg/dLVery High: >500 mg/dL Vitamin D,25 Hydroxyon 08-17 Vitamin D 25-OH 65.2 ng/mL Normal 30-100 [facility] Comment on above: Order Comment: Order Date: 08/16/25 Order Info: [id number] - CMP Order Info: [id number] - LIPID Order Info: [id number] - TSH INR RESULTS GO TO DR Result Comment: Deedee min D Status Deficiency: <20 ng/mL (50nmol/L) Insufficiency: 20-30 ng/mL (50-75 nmol/L) Sufficiency: 30-100 ng/mL (75-250 nmol/L) Toxicity: >100 ng/mL (>250 nmol/L) Performed By: #### L 300.3900, L506.1001 #### [facility] [address] [place], [address] White blood cell (WBC) count Ordered By: Daniel Lai on 08-17-2025 WBC (Bld) [#/Vol] 5.3 10*3/uL 4.4-11.0 [facility] - Chemistry and C hemistry - challengeOrdered By: Jessy Wade on 08-16-2025 Bilirubin Ql (U) Negative [facility] Glucose Ql (U) Negative [facility] Ketones Ql (U) Negative [facility] pH (U) 5.5 [pH] [facility] Specific gravity (U) [Rel density] 1.015 [facility] Urobilinogen (U) [Mass/Vol] Negative [facility] - Hematology and Cell countsOrdered By: Jessy Wade on 08-16-2025 Hemoglobin Ql (U) Negative [facility] - UrinalysisOrder ed By: Jessy Wade on 08-16-2025 Nitrite Ql (U) Negative [facility] Protein Ql (U) 1+ [facility] MR/BMSAbimbola 08-16-2025 MR/BMSJAS [facility] [address] [place] [address] OFFICE VISIT Date of Service: 08/16/25 MR#: [id number] Acct: [id number] Name: GAYATHRI CORREIA Rep #: [id number] : 1945 Provider: Dr. Jessy Lama i, MD Age/Sex: 80/F Location: [facility] Status: Signed Intake Vital Signs 06/07/25 14:38 08/16/25 09:18 Height 4 ft 10 in 4 ft 10 in BP 118/70 Blood Pressure Location Lt radial Position Sitting Pulse 73 Pulse Source Monitor Intake Visit Reasons: 3 month follow up Chief Complaint: 3 month f/u Allergies No Known Allergies Allergy (Verified 08/16/25 09:15) Medications ???Medication ???Instructions ???Recorded ???Confirmed ???Type sjvloonw-khzj-qbwh 8 mg-folic 400 1 ea PO DAILY [...] atrial flutter Spinal stenosis Essential (primary) hypertension detention (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 of anticoagulants Paroxysmal atrial fibrillation [...] Chief Complaint: 3 month f/u Details: GAYATHRI ALLSHOUSE, is a 80 F. She is here for follow up on urinary retention with urge incontinence. She has actually been doing well and not having any urinary symptoms at this time. She had cyst removed from the uterus and she is doing really well since then. It was benign and was easier to d (more content not included)... Normal [facility] No Panel InformationOrdered By: Jessy Wade on 08-16-2025 Urine Leukocytes Positive [facility] Urine Non-Hemolyzed Blood Negative [facility] International normalized rat io (INR) measurement by fingerstickOrdered By: Juni Epstein on 08-04-2025 INR Coag (BldC) [Relative time] 3.5 [facility] Comment on above: Critical Value > 4.0 Protime w/INR Fingerstickon 08-04-2025 INR Coag (PPP) [Relative time] 3.5 {INR} Normal [facility] Comment on above: Result Comment: Crit ical Value > 4.0 Performed By: #### L 300.3900 #### [facility] [address], [place], [address] Protime Coagsen 35.3 SEC High 11.7-14.9 [facility] Comment on above: Performed By: #### L 300.3900 #### [facility] [address], [place], [address] Whole blood prothrombin time Ordered By: Juni Epstein on 08-04-2025 PT Coag (Bld) [Time] 35.3 s High 11.7-14.9 [facility] International normalized rat io (INR) measurement by fingerstickOrdered By: Juni Epstein on 06-25-2025 INR Coag (BldC) [Relative time] 3.1 [facility] Comment on above: Critical Value > 4.0 Protime w/INR Fingerstickon 06-25-2025 INR Coag (PPP) [Relative time] 3.1 {INR} Normal [facility] Comment on above: Result Comment: Crit ical Value > 4.0 Performed By: #### L 300.3900 #### [facility] [address] [place], [place], [address] Protime [place]en 32.3 SEC High 11.7-14.9 [facility] Comment on above: Performed By: #### L 158.9046 #### [facility] [address] [place], [place], [address] Whole blood prothrombin time Ordered By: Juni Epstein on 06-25-2025 PT Coag (Bld) [Time] 32.3 s High 11.7-14.9 [facility] Performance Analyst Office Visit Reporton 06-07-2025 Performance Analyst Office Visit Report [facility] [address], [address] [place] [address] OFFICE VISIT Date of Service: 06/07/25 MR#: [id number] Acct: [id number] Name: GAYATHRI CORREIA Rep #: [id number] : 1945 Provider: Dr. Senait Gimenez DO Age/Sex: 79/F [place] [facility] Status: Signed Intake Vital Signs 04/06/25 08:35 04/30/25 13:50 05/25/25 12:03 06/07/25 14:36 06/07/25 14:38 Height 4 ft 10 in 4 ft 10 in 4 ft 10 in 4 ft 10 in 4 ft 10 in Weight: 196 lb 8 oz BMI 41.1 BP 116/81 H Intake Visit Reasons: 2 wk labial lysys adhesions remove vag. mass Metals Sales Representative Required: No Is patient in pain?: No Allergies No Known Allergies Allergy (Verified 06/07/25 14:36) Medications ???Medication ???Instructions ???Recorded ???Confirmed ???Type ureumdsx-mckv-mwnh 8 mg-folic 400 1 ea PO DAILY [...] menopausal: Yes Patient : No : No [facility] Medical History Dilated aortic root Wears glasses [...] atrial flutter Spinal stenosis Essential (primary) hypertension detention (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 of anticoagulants Paroxysmal atrial fibrillation [...] Elective ab (more content not included)... Normal [facility] Protime w/INR Fingerstickon 05-26-2025 INR Coag (PPP) [Relative time] 1.3 {INR} Normal [facility] Comment on above: Result Comment: Crit ical Value > 4.0 Performed By: #### L 300.3900 #### [facility] [address] [place], [address] Protime Coagsen 15.2 SEC High 11.7-14.9 [facility] Comment on above: Performed By: #### L 300.3900 #### [facility] [address] [place], [address] Discharge Instructionon 05-03 Discharge Instruction [facility] Medical Records Department [address] [place] [address] Instructions for Home/Discharge Instructions 05/25/25 1332 MR#: [id number] Acct: [id number] Name: GAYATHRI CORREIA Rep #: [id number] : 1945 79 From: Senait Dick DO [...] Senait Dick Primary Care Provider: Daniel Lai Print Language: British Discharge Orders/Prescription s Prescriptions: Continued gabapentin 300 [...] not take more than one a day vegughvw-fic-dlsb-F A-vit K-lut 1 EACH tablet 1 ea [...] CC: Dr. Daniel Lai MD Signed Normal [facility] normalized rat io (INR) measurement by fingerstickOrdered By: Senait Sorto on 05-25-2025 INR Coag (BldC) [Relative time] 1.3 [facility] Comment on above: Critical Value > 4.0 MR/NOTCUIDA5xy 05-25-2025 MR/POSTOPAN2 [facility] Medical Records Department [address] [place] [address] Anesthesia Postop Eval II 05/25/252235 MR#: [id number] Acct: [id number] Name: GAYATHRI CORREIA Rep #: [id number] : 1945 79 From: Basil Harris MD PCP: Dr. Daniel Lai MD Status:[facility] Y Race: C Location: [facility] Anesthesia Postop Eval I Sum Postop Eval [...] Vomiting: No Complications Anesthesia Complication: No 05/25/252236 Basil Harris MD Cosigner Signature: Date CC: Signed Normal [facility] Operative Reporton 5 Operative Report [facility] Medical Records Department [address] [place] [address] Operative Report 05/25/25 1417 MR#: [id number] Acct: [id number] Name: GAYATHRI CORREIA Rep #: [id number] : 1945 79 From: Senait Dick DO PCP: Dr. Daniel Lai MD Status:[facility] Location: [place] [address] Problems Associated Problem List Diagnoses (1) Vaginal [...] labial adhesions and removal of vaginal mass assembler semiconductor: No Type of Anesthesia: MAC and Topical [...] SCD's VTE Pharm Prophylaxis ordered?: Yes 05/25/25 4492 Cosigner Signature (if applicable): CC: Dr. Daniel Lai MD; Dr. Senait Dick, Signed Normal [facility] Surgery Specimen Level IIIon 05-25-2025 Surgery Specimen Level III Patient Age/Sex Location Account Attending Physician GAYATHRI CORREIA 79/F [facility] [id number] Dr. Senait Dick, Miguel Specimen: [id number] Received: 05/25/25 Status: DIOR Hankins Num: [id number] Spec Type: Cyst Subm Dr: Dr. Senait Dick, [facility] OPERATION: Labial lysis of adhesions, removal of vaginal mass PRE-OP DIAGNOSIS: Vaginal mass, postmenopausal bleeding TISSUE SUBMITTED: A- Vaginal cyst MICROSCOPIC DIAGNOSIS A. Vagina, polypectomy: * Benign endocervical polyp with submucosal lipomatous and edematous features and focal squamous metaplasia MICROSCOPIC DESCRIPTION Slides are reviewed. GROSS DESCRIPTION A. Received in formalin labeled with the patient's name and date of . Designated as vaginal cyst is a 1.9 x 1.3 x 0.9 cm pale tolentino-pink, polypoid portion of rubbery tissue with a cauterized resection margin (inked black). Sectioning reveals transparent, edematous cut surfaces. Entirely submitted in 2 cassettes. ID 05/26/2025 CPT:[id number] Patient Age/Sex Location Account Attending Physician LAILAGAYATHRI M 79/F [facility] [id number] Miguel Ruano Signed (signatur e on file) Dr. Jasvir Ramos MD 06/02/25 1503 Normal [facility] Comment on above: Performed By: #### P SUIII ####[facility] [address] 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 Mauro Parker, Signed Normal [facility] Cardiology Visit Reporton Cardiology Visit Report [facility] [address] [place] [address] OFFICE VISIT Date of Service: 05/18/25 MR#: [id number] Acct: [id number] Name: GAYATHRI CORREIA Rep #: [id number] : 1945 Provider: JOSHUA Bermudez Age/Sex: 79/F Location: [facility] Status: Signed HPI HPI History of Present [...] Monitor Intake Visit Reasons: 6-9 M FU Metals Sales Representative Required: No Accompanied by: Daughter In Law Is patient in pain?: No Allergies No Known Allergies Allergy (Verified 05/18/25 10:57) Medications ???Medication ???Instructions ???Recorded ???Confirmed ???Type kzinhzhh-kjom-hclo 8 mg-folic 400 1 ea PO DAILY [...] year?: Yes (2-3 weakness in legs ) [facility] Medical History (Updated 05/18/25 @ 11:22 by [...] atrial flutter Spinal stenosis Essential (primary) hypertension detention (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 of anticoagulants Paroxysmal atrial fibrillation [...] used seco (more content not included)... Normal [facility] Type AND Screen - PAT ONLYon 05-18-2025 ABO and Rh group Nom (Bld) Blood group B Rh(D) positive Normal [facility] Comment on above: Order Comment: Surge ry Date: 05/25/25Reason for Laboratory Test [id number] LYSIS OF ADHESIONS REMOVAL OF VAGINAL MASS Performed By: #### B TSPAT ####[facility] [address] [facility] [address] [place], [place], [address] Electrocardiogram reportOrde red By: Holger Del Valle on 05-03-2025 EKG study [facility] Cardiovascular Services [address] [place] [address] 12 Lead EKG 04/29/25 1341 MR#: [id number] Acct: [id number] Name: GAYATHRI CORREIA Rep #:[id number] : 1945 79 From: Holger richter MD Attending Dr: Dr. Senait Dick DO Status: PRE OKC Ordering Dr: Senait Dick DO D ate: 04/29/25 Location: [facility] Sex: F C Admitted: Test Reason : PREOP Blood Pressure : */* mmHG Vent. Rate : 74 BPM Atrial Rate : 78 BPM P-R Int : * ms QRS Dur : 78 ms QT Int : 392 ms P-R-T Axes : * 69 37 degrees QTcB Int : 435 ms Normal sinus rhythm NSTW CHANGES ABNORMAL Confirmed by Holger Del Valle ([id number]), newspaper or periodical editor NORY TRAORE ([id number]) on 05/03/2025 11:32:20 AM Referred By: Senait Dick Confirmed By: Holger Del Valle 05/03/25 1132 Date _ Holger Del Valle MD CC: Dr. Daniel Lai MD; Dr. Senait Dick, DO ~ Signed [facility] Work Phone: Urine Cultureon 05-03-2025 URC Below infection level. Streptococcus group B [place] Count 1000-10,000 Normal [facility] Comment on above: Performed By: #### M 100.2200 ####[facility] [address] [place], [address] 12 Lead EKGon 05-01-2025 12 Lead EKG [facility] Cardiovascular Services [address] [place] [address] 12 Lead EKG 05/01/25 1527 MR#: [id number] Acct: [id number] Name: GAYATHRI CORREIA Rep #: [id number] : 1945 79 From: Holger Del Valle [...] Abnormal ECG Confirmed by Holger Del Valle ([id number]), newspaper or periodical editor VICENTE WALKER ([id number]) on 05/03/2025 10:55:56 AM Referred By: Confirmed By: Holger Del Valle 05/03/25 1056 Date Holger Del Valle MD CC: Dr. Daniel Lai MD; Dr. Brian Rivers MD; JOSHUA Francis Signed Normal [facility] Absolute lymphocyte countOrd ered By: Aisha Wright on 05-01-2025 Lymphocytes Auto (Unsp spec) [#/Vol] 1.77 10*3/uL 0.83-4.51 [facility] Absolute neutrophil countOrd ered By: Aisha Wright on 05-01-2025 Neutrophils (Bld) [#/Vol] 3.1 10*3/uL 2.0-7.7 [facility] Anion gap in Serum or Plasma Ordered By: Aisha Wright on 05-01-2025 Anion gap [Moles/Vol] 10 mmol/L 5-15 [facility] Automated blood erythrocyte countOrdered By: Aisha Wright on 05-01-2025 RBC (Bld) [#/Vol] 3.60 10*6/uL Low 4.2-5.4 [facility] Comment on above: Performed By: #### L 300.3900 #### [facility] [address] [place], [place], [address] Automated blood hematocrit ( percentage)Ordered By: Aisha Wright on 05-01-2025 Hematocrit (Bld) [Volume fraction] 34.8 % Low 37-47 [facility] Comment on above: Performed By: #### L 300.3900 #### [facility] [address] [place], [address] Automated lymphocyte count a s percentage of total leukocytesOrdered By: Aisha Wright on 05-01-2025 Lymphocytes/100 WBC Auto (Unsp spec) 32.8 % 19-41 [facility] BUN/creatinine ratioOrdered By: Aisha Wright on 05-01-2025 Urea nitrogen/Creatinine [Mass ratio] 12.9 mg/mg 10-20 [facility] Basic Metabolic Profile (BMP )on 05-01-2025 BUN/CRE 12.9 RATIO Normal -20 [facility] Comment on above: Performed By: #### L 300.3900 #### [facility] [address] [place], [address] ECRCL 34.45 ml/min Low 50-250 [facility] Comment on above: Performed By: #### L 300.3900 #### [facility] [address] [place], [address] GAP 10 Normal 5-15 [facility] Comment on above: Performed By: #### L 300.3900 #### [facility] [address] [place], [address] Potassium [Moles/Vol] 4.4 mmol/L Normal 3.3-5.1 [facility] Comment on above: Performed By: #### L 300.3900 #### [facility] [address] [place], [address] Basophil percentageOrdered B y: Aisha Wright on 05-01-2025 Basophils/100 WBC (Bld) 0.7 % Normal 0-1 [facility] Comment on above: Performed By: #### L 300.3900 #### [facility] [address] [place], [address] Bilirubin Test strip Ql (U)O rdered By: Aisha Wright on 05-01-2025 Bilirubin Ql (U) Negative Negative [facility] CBC W/Diff, Automatedon 04-03 Absolute Lymph 1.77 X10 3/uL Normal 0.83-4.51 [facility] Comment on above: Performed By: #### L 300.3900 #### [facility] [address] [place], [address] Absolute Neut 3.1 X10 3/uL Normal 2.0-7.7 [facility] Comment on above: Performed By: #### L 300.3900 #### [facility] [address] [place] [place], [address] IG% 0.200 Normal 0.0-0.9 [facility] Comment on above: Result Comment: IG% - Immature Granulocytes (promyelocytes, myelocytes and metamyelocytes) > 1% indicates that a LEFT SHIFT is Present. Performed By: #### L 300.3900 #### [facility] [address] [place], [address] Lymphocytes/100 WBC (Bld) 32.8 % Normal 19-41 [facility] Comment on above: Performed By: #### L 300.3900 #### [facility] [address] [place], [address] Nucleated RBC (Bld) [#/Vol] 0 10*3/uL Normal 0-5 [facility] Comment on above: Performed By: #### L 300.3900 #### [facility] [address] [place], [address] RDW SD 48.2 fl High 35.1-43.9 [facility] Comment on above: Performed By: #### L 300.3900 #### [facility] [address] [place], [address] Carbon dioxide, total [Moles /volume] in Central venous bloodOrdered By: Aisha Wright on 05-01-2025 CO2 [Moles/Vol] 25.0 mmol/L Normal 21.0-32.0 [facility] Comment on above: Performed By: #### L 300.3900 #### [facility] [address] [place], [address] Chest PA and Lateralon 05-01 Chest PA and Lateral [facility] Imaging Services [address] [place] [address] Chest PA and Lateral MR#: [id number] Acct: [id number] Name: GAYATHRI CORREIA Rep #: [id number] : 1945 F 79 From: Earl Samson MD PCP: Dr. Daniel Lai MD Status: [facility] ER Study: Chest PA and Lateral Date of Exam: 05/01/25 Exam# [id number] Ordering Dr: Aisha Wright EXAM: XR Chest, 2 Views CLINICAL INDICATION: CHEST PAIN TECHNIQUE: Frontal and lateral views of the chest. COMPARISON: No relevant prior studies available. FINDINGS: LUNGS AND PLEURAL SPACES: Unremarkable. No consolidation. No pneumothorax. HEART: Unremarkable. No cardiomegaly. MEDIASTINUM: Unremarkable. Normal mediastinal contour. BONES/JOINTS: Unremarkable. No acute fracture. RAD/Chest PA and Lateral IMPRESSION: No acute cardiopulmonary process. Reading Location: [facility] CC: Dr. Daniel Lai MD; JOSHUA Francis Political Science Chair: Signed Normal [facility] Chloride assayOrdered By: Negrita Wright on 05-01-2025 Chloride [Moles/Vol] 107 mmol/L Normal 98-108 [facility] Comment on above: Performed By: #### L 300.3900 #### [facility] [address] [facility] [place], [address] Emergency Department Summary on 05-01-2025 Emergency Department Summary [facility] Medical Records Department [address] [place] [address] Emergency Department Summary 05/01/25 MR#: [id number] Acct: [id number] Name: GAYATHRI CORREIA Rep #: [id number] : 1945 79 From: Brian Rivers MD PCP: Dr. Daniel Lai MD Status:[facility] ER Location: ED HPI History of Present [...] in 2010. She follows now with the [place] [facility] and is on metoprolol and Coumadin. 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 Normal [facility] Eosinophil percentageOrdered By: Aisha Wright on 05-01-2025 Eosinophils/100 WBC (Bld) 2.4 % Normal 0-5 [facility] Comment on above: Performed By: #### L 300.3900 #### [facility] [address] [place], [address] Erythrocyte distribution wid th ratioOrdered By: Aisha Wright on 05-01-2025 Erythrocyte distribution width (RBC) [Ratio] 13.5 % Normal 11.6-14.6 [facility] Comment on above: Performed By: #### L 300.3900 #### [facility] [address] [place], [address] Erythrocyte distribution wid th standard deviationOrdered By: Aisha Wright on 05-01-2025 Erythrocyte distribution width (RBC) [Ratio] 48.2 fl High 35.1-43.9 [facility] Glomerular filtration rate ( GFR) estimation/1.73 sq m using serum, plasma, or whole bOrdered By: Aisha Wright on 05-01-2025 GFR/1.73 sq M.predicted among non-blacks MDRD (S/P/Bld) [Vol rate/Area] 43 mL/min/{1.73_m2} Low >60 [facility] Comment on above: mL/min/1.73m2 CKD-EP I Creatinine Equation (2020) Result Comment: mL/m in/1.73m2 CKD-EPI Creatinine Equation (2020) Performed By: #### L 300.3900 #### [facility] [address] [place], [place], [address] Hemoglobin measurementOrdere d By: Aisha Wright on 05-01-2025 Hemoglobin (Bld) [Mass/Vol] 11.1 g/dL Low 12.0-15.0 [facility] Comment on above: Performed By: #### L 300.3900 #### [facility] [address] [place], [address] Immature granulocytes/100 WB C Auto (Bld)Ordered By: Aisha Wright on 05-01-2025 Immature granulocytes/100 WBC (Bld) 0.200 % 0.0-0.9 [facility] Comment on above: IG% - Immature Granu locytes (promyelocytes, myelocytes and metamyelocytes) > 1% indicates that a LEFT SHIFT is Present. International normalized rat io (INR) calculationOrdered By: Aisha Wright on 05-01-2025 INR Coag (Bld) [Relative time] 2.5 {INR} [facility] Ketones Test strip Ql (U)Ord ered By: Aisha Wright on 05-01-2025 Ketones Ql (U) Negative Negative [facility] L499.0042on 05-01-2025 Trop T High Sen 17 ng/L High <=14 [facility] Comment on above: Performed By: #### L 300.3900 #### [facility] [address] [place], [address] L499.0043on 05-01-2025 Trop T High Sen Normal <=14 [facility] Comment on above: Result Comment: Canc elled via OM: Order cancelled - Patient discharged Performed By: #### L 499.0043 #### [facility] [address] [place], [address] L501.4021on 05-01-2025 Trop T High Sen 15 ng/L High <=14 [facility] Comment on above: Performed By: #### L 300.3900 #### [facility] [address] [place], [address] MCV (mean corpuscular volume ) determinationOrdered By: Aisha Wright on 05-01-2025 MCV (RBC) [Entitic vol] 96.7 fL Normal 81-99 [facility] Comment on above: Performed By: #### L 300.3900 #### [facility] [address] [place], [address] Mean corpuscular hemoglobin (MCH) determinationOrdered By: Aisha Wright on 05-01-2025 MCH (RBC) [Entitic mass] 30.8 pg Normal 27.0-32.0 [facility] Comment on above: Performed By: #### L 300.3900 #### [facility] [address] [place], [address] Mean corpuscular hemoglobin concentration (MCHC) determinationOrdered By: Aisha Wright on 05-01-2025 MCHC (RBC) [Mass/Vol] 31.9 g/dL Low 32-36 [facility] Comment on above: Performed By: #### L 300.3900 #### [facility] [address] [place], [address] Mean platelet volume determi nationOrdered By: Aisha Wright on 05-01-2025 Platelet mean volume (Bld) [Entitic vol] 9.4 fL Normal 6.2-12.0 [facility] Comment on above: Performed By: #### L 300.3900 #### [facility] [address] [place], [address] Microscopic analysis of urin e for red blood cells (RBC)Ordered By: Aisha Wright on 05-01-2025 Microscopic analysis of urine for red blood cells (RBC) 0-5 SEEN /hpf 0-5 [facility] Monocyte percentageOrdered B y: Aisha Wright on 05-01-2025 Monocytes/100 WBC (Bld) 6.7 % Normal 0-10 [facility] Comment on above: Performed By: #### L 300.3900 #### [facility] [address] [place], [address] Mucus LM Ql (Urine sed)Order ed By: Aisha Wright on 05-01-2025 Mucus Ql (Urine sed) 0 SEEN /hpf [facility] Neutrophil percentageOrdered By: Aisha Wright on 05-01-2025 Neutrophils/100 WBC (Bld) 57.2 % Normal 47-70 [facility] Comment on above: Performed By: #### L 300.3900 #### [facility] [address] [place], [place], [address] Nitrite Test strip Ql (U)Ord ered By: Aisha Wright on 05-01-2025 Nitrite Ql (U) Negative Negative [facility] Nucleated red blood cell per centageOrdered By: Aisha Wright on 05-01-2025 Nucleated RBC/100 WBC (Bld) [Ratio] 0 % 0-5 [facility] Platelet countOrdered By: Negrita Wright on 05-01-2025 Platelets (Bld) [#/Vol] 210 10*3/uL Normal 150-450 [facility] Comment on above: Performed By: #### L 300.3900 #### [facility] [address] [place], [address] Potassium measurement (mass/ volume)Ordered By: Aisha Wright on 05-01-2025 Potassium (Unsp spec) [Mass/Vol] 4.4 mmol/L 3.3-5.1 [facility] Protein Test strip Ql (U)Ord ered By: Aisha Wright on 05-01-2025 Protein Ql (U) 30 mg/dl High Negative [facility] Prothrombin Time w/INRon INR Coag (PPP) [Relative time] 2.5 {INR} Normal [facility] Comment on above: Performed By: #### L 300.3900 #### [facility] [address] [place], [address] Prothrombin timeOrdered By: Aisha Wright on 05-01-2025 PT Coag (PPP) [Time] 27.5 s High 11.7-14.9 [facility] Comment on above: Performed By: #### L 300.3900 #### [facility] [address] [place], [address] Serum creatinine measurement (mass/volume)Ordered By: Aishacortney Wright on 05-01-2025 Creatinine [Mass/Vol] 1.26 mg/dL High 0.70-1.20 [facility] Comment on above: Performed By: #### L 300.3900 #### [facility] [address] [place], [address] Serum glucose measurement (m ass/volume)Ordered By: Aishacortney Wright on 05-01-2025 Glucose [Mass/Vol] 125 mg/dL High 70-99 [facility] Comment on above: Performed By: #### L 300.3900 #### [facility] [address] [place], [address] Serum or plasma calcium pk urement (mass/volume)Ordered By: Aisha Wright on 05-01-2025 Calcium [Mass/Vol] 8.9 mg/dL Normal 7.6-11.0 [facility] Comment on above: Performed By: #### L 300.3900 #### [facility] [address] [place], [address] Serum or plasma urea nitroge n measurement (mass/volume)Ordered By: Aisha Kyle on 05-01-2025 Urea nitrogen [Mass/Vol] 16 mg/dL Normal 4-19 [facility] Comment on above: Performed By: #### L 300.3900 #### [facility] [place], [address] Sodium levelOrdered By: Aishacortney Wright on 05-01-2025 Sodium [Moles/Vol] 142 mmol/L Normal 133-145 [facility] Comment on above: Performed By: #### L 300.3900 #### [facility] [address] [place], [address] Squamous epithelial cells de tection in urine sediment by light microscopyOrdered By: Aisha Wright on 05-01-2025 Epithelial cells.squamous LM Ql (Urine sed) 10-25 SEEN /hpf 5-10 [facility] Transitional cells detection in urine sediment by light microscopyOrdered By: Aisha Wright on 05-01-2025 Transitional cells LM Ql (Urine sed) 0-5 SEEN /hpf 0-5 [facility] Troponin T.cardiac [Mass/vol ume] in Serum or Plasma by High sensitivity methodOrdered By: Aisha Wright on 05-01-2025 Troponin T.cardiac High sensitivity method [Mass/Vol] 17 ng/L High <14 [facility] Troponin T.cardiac High sensitivity method [Mass/Vol] 15 ng/L High <14 [facility] Urinalysis, Completeon 05-01 EPI,SQUAMOUS 10-25 SEEN Normal 5-10 [facility] Comment on above: Order Comment: CLEAN CATCH Performed By: #### L 300.3900 #### [facility] [address] [place], [address] EPI,TRANSITION 0-5 SEEN Normal 0-5 [facility] Comment on above: Order Comment: CLEAN CATCH Performed By: #### L 300.3900 #### [facility] [address] [place], [address] RBC 0-5 SEEN Normal 0-[address] [place] [address] Comment on above: Order Comment: CLEAN CATCH Performed By: #### L 300.3900 #### [facility] [address] [place], [address] WBC 10-25 SEEN Normal 0-5 [facility] Comment on above: Order Comment: CLEAN CATCH Performed By: #### L 300.3900 #### [facility] [address] [place], [address] BACTERIA 0 SEEN Normal None Seen [facility] Comment on above: Order Comment: CLEAN CATCH Performed By: #### L 300.3900 #### [facility] [address] [place], [address] Mucus Ql (Urine sed) 0 SEEN Normal [facility] Comment on above: Order Comment: CLEAN CATCH Performed By: #### L 300.3900 #### [facility] [address] [place], [address] Urine clarityOrdered By: Caitlin Wright on 05-01-2025 Clarity (U) Sl. Cloudy Clear [facility] Urine color determinationOrd ered By: Aisha Wright on 05-01-2025 Color (U) Straw Yellow [facility] Urine cultureOrdered By: Caitlin Wright on 05-01-2025 Bacteria identified Cx Nom (U) Streptococcus group B Abnormal [facility] Urine glucose detectionOrder ed By: Aisha Wright on 05-01-2025 Glucose Ql (U) Normal mg/dl Normal [facility] Urine leukocyte esterase det ection by dipstickOrdered By: Aisha Wright on 05-01-2025 Leukocyte esterase Test strip Ql (U) 500 /ul High Negative [facility] Urine pHOrdered By: Aisha odonnell on 05-01-2025 pH (U) 5.0 [pH] 5.0 - 8.0 [facility] Urine sediment bacteria coun t by microscopy (number/high power field)Ordered By: Aisha Wright on 05-01-2025 Bacteria LM.HPF (Urine sed) [#/Area] 0 /[HPF] None Seen [facility] Urine specific gravity measu rementOrdered By: Aisha Wright on 05-01-2025 Specific gravity (U) [Rel density] 1.015 1.002-1.030 [facility] Urine urobilinogen measureme ntOrdered By: Aisha Wright on 05-01-2025 Urobilinogen Ql (U) Normal mg/dl Normal [facility] White blood cell (WBC) count Ordered By: Aisha Wright on 05-01-2025 WBC (Bld) [#/Vol] 5.4 10*3/uL Normal 4.4-11.0 [facility] Comment on above: Performed By: #### L 300.3900 #### [facility] [address] [place], [address] White blood cell countOrdere d By: Aisha Wright on 05-01-2025 White blood cell count 10-25 SEEN /hpf 0-5 [facility] MR/PAT.Berny 04-30-2025 MR/PAT.ANITA [facility] Medical Records Department [address] [place] [address] PAT - Anesthesia 04/30/25 1539 MR#: [id number] Acct: [id number] Name: GAYATHRI CORREIA Rep #: [id number] : 1945 79 From: Basil Harris MD PCP: Dr. Daniel Lai MD Status:PRE [facility] Y Race: C Location: [facility] Pre-Assessment Diagnosis/Proposed Procedure Planned Operative Procedure(s): Labial Lysis of Adhesions, removal of Vaginal Mass Anesthesia History Anesthesia History - housekeeping aid: Anesthesia History - housekeeping aid Hx Hospitalization No 04/28/25 13:21 Any Problems [...] take am of surgery PONV PONV - housekeeping aid: PONV - housekeeping aid Female Yes 04/28/25 13:21 HX of Motion [...] 04/30/25 13:50 Respiratory Assessment Respiratory Assessment - housekeeping aid: Respiratory Tract Infection Hx - housekeeping aid Hx Respiratory Tract Infection No 04/28/25 13:21 STOP Sleep Apnea STOP Sleep Apnea - housekeeping aid: STOP Sleep Apnea - housekeeping aid Hx Hypertension Yes: states controlled with 04/28/25 [...] Tobacco Use History Tobacco Use History - housekeeping aid: Tobacco Use History - housekeeping aid Tobacco Use Smoking Status Never smoker 04/28/25 13:21 Hx Tobacco Use No 04/28/25 13:21 Years Smoking Packs Smoked per Day Smoking Cessation Date was within the last 15 years Hx Smoking Cessation Date Hx Smoking Cessation Counseling Hematologic Medial History Hematologic Hx - housekeeping aid: Hematologic 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 Normal [facility] Performance Analyst Office Visit Reporton 04-30-2025 Performance Analyst Office Visit Report [facility] [address], [address] [place] [address] OFFICE VISIT Date of Service: 04/30/25 MR#: [id number] Acct: [id number] Name: GAYATHRI CORREIA Rep #: [id number] : 1945 Provider: Dr. Senait Gimenez DO Age/Sex: 79/F [place] [facility] Status: Signed Intake Vital Signs 04/06/25 08:35 04/30/25 13:50 Height 4 ft 10 in 4 ft 10 in Weight: 198 lb 8 oz 197 lb BMI 41.5 41.1 BP 104/71 101/69 Intake Visit Reasons: labial lysis of adhesions remove vag. 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 I have explained to her that she is at risk for labial hematoma after these kinds of procedures, especially when on coumadin and (more content not included)... Normal [facility] 12 Lead EKGon 04-29-2025 12 Lead EKG [facility] Cardiovascular Services [address] [place] [address] 12 Lead EKG 04/29/25 1341 MR#: [id number] Acct: [id number] Name: GAYATHRI CORREIA Rep #: [id number] : 1945 79 From: Holger Del Valle MD Attending Dr: Dr. Senait Dick DO Statu s: PRE [place] Ordering Dr: Senait Dick DO Date: 5 Location: [facility] Sex: F C Admitted: Test Reason : PREOP Blood Pressure : */* mmHG Vent. Rate : 74 BPM Atrial Rate : 78 BPM P-R Int : * ms QRS Dur : 78 ms QT Int : 392 ms P-R-T Axes : * 69 37 degrees QTcB Int : 435 ms Normal sinus rhythm NSTW CHANGES ABNORMAL Confirmed by Holger Del Valle ([id number]), newspaper or periodical editor NORY TRAORE ([id number]) on 05/03/2025 11:32:20 AM Referred By: Senait Dick Confirmed By: Holger Del Valle 05/03/25 1132 Date Holger Del Valle MD CC: Dr. Daniel Lai MD; Dr. Senait Dick, DO Signed Normal [facility] Absolute lymphocyte countOrd ered By: Josue Leal on 04-29-2025 Lymphocytes Auto (Unsp spec) [#/Vol] 2.03 10*3/uL 0.83-4.51 [facility] Absolute neutrophil countOrd ered By: Josue Mel on 04-29-2025 Neutrophils (Bld) [#/Vol] 2.5 10*3/uL 2.0-7.7 [facility] Anion gap in Serum or Plasma Ordered By: Josue Leal on 04-29-2025 Anion gap [Moles/Vol] 9 mmol/L 5-15 [facility] Automated lymphocyte count a s percentage of total leukocytesOrdered By: Josue Leal on 04-29-2025 Lymphocytes/100 WBC Auto (Unsp spec) 38.8 % 19-41 [facility] BUN/creatinine ratioOrdered By: Josue Mel on 04-29-2025 Urea nitrogen/Creatinine [Mass ratio] 14.4 mg/mg 10-20 [facility] Basophil percentageOrdered B y: Josue Leal on 04-29-2025 Basophils/100 WBC (Bld) 0.8 % 0-1 [facility] Bilirubin, totalOrdered By: Josue Leal on 04-29-2025 Bilirubin [Mass/Vol] 0.27 mg/dL 0.00-1.30 [facility] CBC W/Diff, Automatedon 04-02 Absolute Lymph 2.03 X10 3/uL Normal 0.83-4.51 [facility] Comment on above: Performed By: #### L 300.0539 #### [facility] [address] [place], [address] Absolute Neut 2.5 X10 3/uL Normal 2.0-7.7 [facility] Comment on above: Performed By: #### L 300.3900 #### [facility] [address] [place], [address] Basophils/100 WBC (Bld) 0.8 % Normal 0-1 [facility] Comment on above: Performed By: #### L 300.3900 #### [facility] [address] [place], [address] Eosinophils/100 WBC (Bld) 4.4 % Normal 0-5 [facility] Comment on above: Performed By: #### L 300.3900 #### [facility] [address] [place], [address] Erythrocyte distribution width (RBC) [Ratio] 13.6 % Normal 11.6-14.6 [facility] Comment on above: Performed By: #### L 300.3900 #### [facility] [address] [place], [address] Hematocrit (Bld) [Volume fraction] 32.9 % Low 37-47 [facility] Comment on above: Performed By: #### L 300.3900 #### [facility] [address] [place], [address] Hemoglobin (Bld) [Mass/Vol] 10.5 g/dL Low 12.0-15.0 [facility] Comment on above: Performed By: #### L 300.3900 #### [facility] [address] [place], [address] IG% 0.200 Normal 0.0-0.9 [facility] Comment on above: Result Comment: IG% - Immature Granulocytes (promyelocytes, myelocytes and metamyelocytes) > 1% indicates that a LEFT SHIFT is Present. Performed By: #### L 300.3900 #### [facility] [address] [place], [address] Lymphocytes/100 WBC (Bld) 38.8 % Normal 19-41 [facility] Comment on above: Performed By: #### L 300.3900 #### [facility] [address] [place], [address] MCH (RBC) [Entitic mass] 30.9 pg Normal 27.0-32.0 [facility] Comment on above: Performed By: #### L 300.3900 #### [facility] [address] [place], [address] MCHC (RBC) [Mass/Vol] 31.9 g/dL Low 32-36 [facility] Comment on above: Performed By: #### L 300.3900 #### [facility] [place], [address] MCV (RBC) [Entitic vol] 96.8 fL Normal 81-99 [facility] Comment on above: Performed By: #### L 300.3900 #### [facility] [address] [place], [address] Monocytes/100 WBC (Bld) 7.6 % Normal 0-10 [facility] Comment on above: Performed By: #### L 300.3900 #### [facility] [address] [place], [address] Neutrophils/100 WBC (Bld) 48.2 % Normal 47-70 [facility] Comment on above: Performed By: #### L 300.3900 #### [facility] [address] [place], [address] Nucleated RBC (Bld) [#/Vol] 0 10*3/uL Normal 0-5 [facility] Comment on above: Performed By: #### L 300.3900 #### [facility] [address] [place], [address] Platelet mean volume (Bld) [Entitic vol] 9.6 fL Normal 6.2-12.0 [facility] Comment on above: Performed By: #### L 300.3900 #### [facility] [address] [place], [address] Platelets (Bld) [#/Vol] 204 10*3/uL Normal 150-450 [facility] Comment on above: Performed By: #### L 300.3900 #### [facility] [address] [place], [address] RBC (Bld) [#/Vol] 3.40 10*6/uL Low 4.2-5.4 [facility] Comment on above: Performed By: #### L 300.3900 #### [facility] [address] [place], [address] RDW SD 48.9 fl High 35.1-43.9 [facility] Comment on above: Performed By: #### L 300.3900 #### [facility] [address] [place], [address] WBC (Bld) [#/Vol] 5.2 10*3/uL Normal 4.4-11.0 [facility] Comment on above: Performed By: #### L 300.3900 #### [facility] [address] [place], [address] CBC-Complete Blood Cnt No Di ffon 04-29-2025 Erythrocyte distribution width (RBC) [Ratio] 13.7 % Normal 11.6-14.6 [facility] Comment on above: Performed By: #### L 300.3900, L506.1001 #### [facility] [address] [place], [address] Hematocrit (Bld) [Volume fraction] 33.0 % Low 37-47 [facility] Comment on above: Performed By: #### L 300.3900, L506.1001 #### [facility] [address] [place], [address] Hemoglobin (Bld) [Mass/Vol] 10.5 g/dL Low 12.0-15.0 [facility] Comment on above: Performed By: #### L 300.3900, L506.1001 #### [facility] [address] [place], [address] MCH (RBC) [Entitic mass] 30.7 pg Normal 27.0-32.0 [facility] Comment on above: Performed By: #### L 300.3900, L506.1001 #### [facility] [address] [place], [address] MCHC (RBC) [Mass/Vol] 31.8 g/dL Low 32-36 [facility] Comment on above: Performed By: #### L 300.3900, L506.1001 #### [facility] [address] [place], [address] MCV (RBC) [Entitic vol] 96.5 fL Normal 81-99 [facility] Comment on above: Performed By: #### L 300.3900, L506.1001 #### [facility] [address] [place], [address] Platelet mean volume (Bld) [Entitic vol] 9.7 fL Normal 6.2-12.0 [facility] Comment on above: Performed By: #### L 300.3900, L506.1001 #### [facility] [address] [place], [address] Platelets (Bld) [#/Vol] 203 10*3/uL Normal 150-450 [facility] Comment on above: Performed By: #### L 300.3900, L506.1001 #### [facility] [address] [place], [address] RBC (Bld) [#/Vol] 3.42 10*6/uL Low 4.2-5.4 [facility] Comment on above: Performed By: #### L 300.3900, L506.1001 #### [facility] [address] [place], [address] RDW SD 48.6 fl High 35.1-43.9 [facility] Comment on above: Performed By: #### L 300.3900, L506.1001 #### [facility] [address] [place], [address] WBC (Bld) [#/Vol] 5.3 10*3/uL Normal 4.4-11.0 [facility] Comment on above: Performed By: #### L 300.3900, L506.1001 #### [facility] [address] [place], [address] Carbon dioxide, total [Moles /volume] in Central venous bloodOrdered By: Josue Leal on 04-29-2025 CO2 [Moles/Vol] 25.4 mmol/L 21.0-32.0 [facility] Chloride assayOrdered By: Rubi Leal on 04-29-2025 Chloride [Moles/Vol] 106 mmol/L 98-108 [facility] Comprehensive Metabolic Prof ilon 04-29-2025 Albumin [Mass/Vol] 3.8 g/dL Normal 3.4-4.8 [facility] Comment on above: Performed By: #### L 300.3900 #### [facility] [address] [place], [address] Albumin/Globulin [Mass ratio] 1.6 {ratio} Normal 0.9-2.4 [facility] Comment on above: Performed By: #### L 300.3900 #### [facility] [address] [place], [address] ALK PHOS 39 U/L Normal 35-104 [facility] Comment on above: Performed By: #### L 300.3900 #### [facility] [address] [place], [address] ALT [Catalytic activity/Vol] 14 U/L Normal <=34 [facility] Comment on above: Performed By: #### L 300.3900 #### [facility] [address] [place], [address] AST [Catalytic activity/Vol] 25 U/L Normal <=31 [facility] Comment on above: Performed By: #### L 300.3900 #### [facility] [address] [place], [address] Bilirubin [Mass/Vol] 0.27 mg/dL Normal 0.00-1.30 [facility] Comment on above: Performed By: #### L 300.3900 #### [facility] [address] [place], [address] BUN/CRE 14.4 RATIO Normal 10-20 [facility] Comment on above: Performed By: #### L 300.3900 #### [facility] [address] [place], [address] Calcium [Mass/Vol] 8.7 mg/dL Normal 7.6-11.0 [facility] Comment on above: Performed By: #### L 300.3900 #### [facility] [address] [place], [address] Chloride [Moles/Vol] 106 mmol/L Normal 98-108 [facility] Comment on above: Performed By: #### L 300.3900 #### [facility] [address] [place], [address] CO2 [Moles/Vol] 25.4 mmol/L Normal 21.0-32.0 [facility] Comment on above: Performed By: #### L 300.3900 #### [facility] [address] [place], [address] Creatinine [Mass/Vol] 1.21 mg/dL High 0.70-1.20 [facility] Comment on above: Performed By: #### L 300.3900 #### [facility] [address] [place], [address] GAP 9 Normal 5-15 [facility] Comment on above: Performed By: #### L 300.3900 #### [facility] [address] [place], [address] GFR/1.73 sq M.predicted among non-blacks MDRD (S/P/Bld) [Vol rate/Area] 45 mL/min/{1.73_m2} Low >60 [facility] Comment on above: Result Comment: mL/m in/1.73m2 CKD-EPI Creatinine Equation (2020) Performed By: #### L 300.3900 #### [facility] [address] [place], [address] Globulin (S) [Mass/Vol] 2.4 g/dL Normal 2.2-4.2 [facility] Comment on above: Performed By: #### L 300.3900 #### [facility] [address] [place], [address] Glucose [Mass/Vol] 84 mg/dL Normal 70-99 [facility] Comment on above: Performed By: #### L 300.3900 #### [facility] [address] [place], [address] Potassium [Moles/Vol] 4.4 mmol/L Normal 3.3-5.1 [facility] Comment on above: Performed By: #### L 300.3900 #### [facility] [address] [place], [place], [address] Sodium [Moles/Vol] 141 mmol/L Normal 133-145 [facility] Comment on above: Performed By: #### L 300.3900 #### [facility] [address] [place], [place], [address] T PROT 6.3 g/dL Normal 5.9-8.4 [facility] Comment on above: Performed By: #### L 300.3900 #### [facility] [address] [place], [place], [address] Urea nitrogen [Mass/Vol] 17 mg/dL Normal 4-19 [facility] Comment on above: Performed By: #### L 300.3900 #### [facility] [address] [place], [place], [address] Eosinophil percentageOrdered By: Josue Leal on 04-29-2025 Eosinophils/100 WBC (Bld) 4.4 % 0-5 [facility] Erythrocyte distribution wid th ratioOrdered By: Josue Mel on 04-29-2025 Erythrocyte distribution width (RBC) [Ratio] 13.6 % 11.6-14.6 [facility] Erythrocyte distribution wid th standard deviationOrdered By: Josue Leal on 04-29-2025 Erythrocyte distribution width (RBC) [Ratio] 48.9 fl High 35.1-43.9 [facility] Glomerular filtration rate ( GFR) estimation/1.73 sq m using serum, plasma, or whole bOrdered By: Josue Leal on 04-29-2025 GFR/1.73 sq M.predicted among non-blacks MDRD (S/P/Bld) [Vol rate/Area] 45 mL/min/{1.73_m2} Low >60 [facility] Comment on above: mL/min/1.73m2 CKD-EP I Creatinine Equation (2020) Hematocrit Auto (Bld) [Volum e fraction]Ordered By: Josue Leal on 04-29-2025 Hematocrit (Bld) [Volume fraction] 32.9 % Low 37-47 [facility] Hemoglobin measurementOrdere d By: Josue Leal on 04-29-2025 Hemoglobin (Bld) [Mass/Vol] 10.5 g/dL Low 12.0-15.0 [facility] Immature granulocytes/100 WB C Auto (Bld)Ordered By: Josue Leal on 04-29-2025 Immature granulocytes/100 WBC (Bld) 0.200 % 0.0-0.9 [facility] Comment on above: IG% - Immature Granu locytes (promyelocytes, myelocytes and metamyelocytes) > 1% indicates that a LEFT SHIFT is Present. LDHon 04-29-2025 LDH 177 U/L Normal 84-246 [facility] Comment on above: Order Comment: 1 Performed By: #### L 300.3900 #### [facility] [address] [place], [address] Laboratory - Chemistry and C hemistry - challengeOrdered By: Josue Leal on 04-29-2025 AST [Catalytic activity/Vol] 25 U/L <32 [facility] Lactate dehydrogenase (LDH) measurementOrdered By: Josue Leal on 04-29-2025 LDH [Catalytic activity/Vol] 177 U/L 84-246 [facility] MCV (mean corpuscular volume ) determinationOrdered By: Josue Leal on 04-29-2025 MCV (RBC) [Entitic vol] 96.8 fL 81-99 [facility] Mean corpuscular hemoglobin (MCH) determinationOrdered By: Josue Leal on 04-29-2025 MCH (RBC) [Entitic mass] 30.9 pg 27.0-32.0 [facility] Mean corpuscular hemoglobin concentration (MCHC) determinationOrdered By: Josue Leal on 04-29-2025 MCHC (RBC) [Mass/Vol] 31.9 g/dL Low 32-36 [facility] Mean platelet volume determi nationOrdered By: Josue Leal on 04-29-2025 Platelet mean volume (Bld) [Entitic vol] 9.6 fL 6.2-12.0 [facility] Monocyte percentageOrdered B y: Josue Leal on 04-29-2025 Monocytes/100 WBC (Bld) 7.6 % 0-10 [facility] Neutrophil percentageOrdered By: Josue Leal on 04-29-2025 Neutrophils/100 WBC (Bld) 48.2 % 47-70 [facility] Nucleated red blood cell per centageOrdered By: Josue Leal on 04-29-2025 Nucleated RBC/100 WBC (Bld) [Ratio] 0 % 0-5 [facility] Platelet countOrdered By: Rubi Leal on 04-29-2025 Platelets (Bld) [#/Vol] 204 10*3/uL 150-450 [facility] Potassium measurement (mass/ volume)Ordered By: Josue Leal on 04-29-2025 Potassium (Unsp spec) [Mass/Vol] 4.4 mmol/L 3.3-5.1 [facility] RBC Auto (Bld) [#/Vol]Ordere d By: Josue Leal on 04-29-2025 RBC (Bld) [#/Vol] 3.40 10*6/uL Low 4.2-5.4 [facility] Serum creatinine measurement (mass/volume)Ordered By: Josue Leal on 04-29-2025 Creatinine [Mass/Vol] 1.21 mg/dL High 0.70-1.20 [facility] Serum globulin measurementOr dered By: Josue Leal on 04-29-2025 Globulin (S) [Mass/Vol] 2.4 g/dL 2.2-4.2 [facility] Serum glucose measurement (m ass/volume)Ordered By: Josue Leal on 04-29-2025 Glucose [Mass/Vol] 84 mg/dL 70-99 [facility] Serum or plasma alanine weston otransferase (ALT) measurementOrdered By: Joseu Leal on 04-29-2025 ALT [Catalytic activity/Vol] 14 U/L <35 [facility] Serum or plasma albumin pk urement (mass/volume)Ordered By: Josue Leal on 04-29-2025 Albumin [Mass/Vol] 3.8 g/dL 3.4-4.8 [facility] Serum or plasma albumin/glob ulin mass ratioOrdered By: Josue Leal on 04-29-2025 Albumin/Globulin [Mass ratio] 1.6 {ratio} 0.9-2.4 [facility] Serum or plasma alkaline aakash sphatase measurementOrdered By: Josue Leal on 04-29-2025 ALP [Catalytic activity/Vol] 39 U/L 35-104 [facility] Serum or plasma calcium pk urement (mass/volume)Ordered By: Josue Leal on 04-29-2025 Calcium [Mass/Vol] 8.7 mg/dL 7.6-11.0 [facility] Serum or plasma urea nitroge n measurement (mass/volume)Ordered By: Josue Leal on 04-29-2025 Urea nitrogen [Mass/Vol] 17 mg/dL 4-19 [facility] Sodium levelOrdered By: Aram Leal on 04-29-2025 Sodium [Moles/Vol] 141 mmol/L 133-145 [facility] Total proteinOrdered By: Gonzalo Leal on 04-29-2025 Protein [Mass/Vol] 6.3 g/dL 5.9-8.4 [facility] Type AND Screen - PAT ONLYon 04-29-2025 ABO and Rh group Nom (Bld) Blood group B Rh(D) positive Normal [facility] Comment on above: Order Comment: Order Date: 08/16/25 Order Info: [id number] - CMP Order Info: [id number] - LIPID Order Info: [id number] - TSH INR RESULTS GO TO DR Performed By: #### L 300.3900, L506.1001 #### [facility] [address] [place], [address] White blood cell (WBC) count Ordered By: Josue Leal on 04-29-2025 WBC (Bld) [#/Vol] 5.2 10*3/uL 4.4-11.0 [facility] Performance Analyst Office Visit Reporton 04-06-2025 Performance Analyst Office Visit Report [facility], [address] [place] [address] OFFICE VISIT Date of Service: 04/06/25 MR#: [id number] Acct: [id number] Name: GAYATHRI CORREIA Rep #: [id number] : 1945 Provider: Dr. Senait Gimenez, Age/Sex: 79/F [place] [facility] Status: Signed Intake Vital Signs 02/26/25 08:22 03/30/25 08:08 04/06/25 08:35 Height 4 ft 10 in 4 ft 10 in 4 ft 10 in Weight: 198 lb 8 oz BMI 41.5 BP 104/71 Intake Visit Reasons: VAGINAL BLEEDING [employer] Sales Representative Required: No Is patient in pain?: No Allergies No Known Allergies Allergy (Verified 04/06/25 08:44) Medications ???Medication ???Instructions ???Recorded ???Confirmed ???Type qbfvujex-iatn-lxyl 8 mg-folic 400 1 ea PO DAILY [...] atrial flutter Spinal stenosis Essential (primary) hypertension detention (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 of anticoagulants Paroxysmal atrial fibrillation [...] Denies fatigue (more content not included)... Normal [facility] PT D/C Summary (1)on 025 PT D/C Summary (1) [facility] Physical Therapy [facility] [address] [place] [address] / REHABILITATION SERVICES DISCHARGE SUMMARY MR#: [id number] Acct: [id number] Name: GAYATHRI CORREIA Rep #: [id number] : 1945 79 From: Murray Quintana PT, Cert. T, OCS Referring Dr.: Dr. Daniel Lai MD Status: REG RCR Insurance: [employer] PPO SELF PAY INSURANCE Discharge Summary D/C summary: It has been my pleasure to treat GAYATHRI CORREAI referred by Dr. Daniel Lai MD, with [...] please feel free to call me at [phone]. Thank you for the referral of this patient. Sincerely, Murray Quintana, PT, Cert MDT, OCS Balance/Gait/Functi onal tests Balance/Special Test Scores Oswestry Low Back Score: 13 Improvement % Improvement: 90 04/06/25 1052 CC: Dr. Daniel Lai MD JLA Signed Normal [facility] Echo Completeon 03-26-2025 Echo Complete [facility] [address] [place] [address] Echo Complete 03/26/25 1409 MR#: [id number] Acct: [id number] Name: GAYATHRI CORREIA Rep #: [id number] : 1945 79 From: Juni Epstein MD Attending Dr: Dr. Juni Epstein MD Status: REG C Ordering Dr: Juni Epstein MD Date: 03/26/25 Location: [facility] Sex: F C Admitted: Reason For Study [...] MD Date Dictated: 03/26/25 1409 Date Transcribed: 03/30/25 08 Political Science Chair: Signed Normal [facility] Absolute lymphocyte countOrd ered By: Josue Leal on 03-22-2025 Lymphocytes Auto (Unsp spec) [#/Vol] 2.04 10*3/uL 0.83-4.51 [facility] Absolute neutrophil countOrd ered By: Josue Mel on 03-22-2025 Neutrophils (Bld) [#/Vol] 2.5 10*3/uL 2.0-7.7 [facility] Anion gap in Serum or Plasma Ordered By: Josue Leal on 03-22-2025 Anion gap [Moles/Vol] 26 mmol/L High 5-15 [facility] Automated lymphocyte count a s percentage of total leukocytesOrdered By: Josue Leal on 03-22-2025 Lymphocytes/100 WBC Auto (Unsp spec) 38.6 % - [facility] BUN/creatinine ratioOrdered By: Josue Leal on 03-22-2025 Urea nitrogen/Creatinine [Mass ratio] 14.9 mg/mg 10- [facility] Basophil percentageOrdered B y: Josue Leal on 03-22-2025 Basophils/100 WBC (Bld) 0.8 % 0-1 [facility] Bilirubin, totalOrdered By: Josue Leal on 03-22-2025 Bilirubin [Mass/Vol] 0.32 mg/dL 0.00-1.30 [facility] CBC W/Diff, Automatedon 03-03 Absolute Lymph 2.04 X10 3/uL Normal 0.83-4.51 [facility] Comment on above: Performed By: #### L 503.6030, L504.2610, L500.4050, L100.0100, L503.6550 #### [facility] [address] [place], [address] Absolute Neut 2.5 X10 3/uL Normal 2.0-7.7 [facility] Comment on above: Performed By: #### L 503.6030, L504.2610, L500.4050, L100.0100, L503.6550 #### [facility] [address] [place], [address] Basophils/100 WBC (Bld) 0.8 % Normal 0-1 [facility] Comment on above: Performed By: #### L 503.6030, L504.2610, L500.4050, L100.0100, L503.6550 #### [facility] [address] [place], [address] Eosinophils/100 WBC (Bld) 5.1 % High 0-5 [facility] Comment on above: Performed By: #### L 503.6030, L504.2610, L500.4050, L100.0100, L503.6550 #### [facility] [address] [place], [address] Erythrocyte distribution width (RBC) [Ratio] 13.9 % Normal 11.6-14.6 [facility] Comment on above: Performed By: #### L 503.6030, L504.2610, L500.4050, L100.0100, L503.6550 #### [facility] [address] [place], [address] Hematocrit (Bld) [Volume fraction] 35.8 % Low 37-47 [facility] Comment on above: Performed By: #### L 503.6030, L504.2610, L500.4050, L100.0100, L503.6550 #### [facility] [address] [place], [address] Hemoglobin (Bld) [Mass/Vol] 11.3 g/dL Low 12.0-15.0 [facility] Comment on above: Performed By: #### L 503.6030, L504.2610, L500.4050, L100.0100, L503.6550 #### [facility] [address] [place], [address] IG% 0.000 Normal 0.0-0.9 [facility] Comment on above: Result Comment: IG% - Immature Granulocytes (promyelocytes, myelocytes and metamyelocytes) > 1% indicates that a LEFT SHIFT is Present. Performed By: #### L 503.6030, L504.2610, L500.4050, L100.0100, L503.6550 #### [facility] [address] [place], [address] Lymphocytes/100 WBC (Bld) 38.6 % Normal 19-41 [facility] Comment on above: Performed By: #### L 503.6030, L504.2610, L500.4050, L100.0100, L503.6550 #### [facility] [address] [place], [address] MCH (RBC) [Entitic mass] 30.5 pg Normal 27.0-32.0 [facility] Comment on above: Performed By: #### L 503.6030, L504.2610, L500.4050, L100.0100, L503.6550 #### [facility] [address] [place], [address] MCHC (RBC) [Mass/Vol] 31.6 g/dL Low 32-36 [facility] Comment on above: Performed By: #### L 503.6030, L504.2610, L500.4050, L100.0100, L503.6550 #### [facility] [address] [place], [address] MCV (RBC) [Entitic vol] 96.8 fL Normal 81-99 [facility] Comment on above: Performed By: #### L 503.6030, L504.2610, L500.4050, L100.0100, L503.6550 #### [facility] [address] [place], [address] Monocytes/100 WBC (Bld) 9.1 % Normal 0-10 [facility] Comment on above: Performed By: #### L 503.6030, L504.2610, L500.4050, L100.0100, L503.6550 #### [facility] [address] [place], [address] Neutrophils/100 WBC (Bld) 46.4 % Low 47-70 [facility] Comment on above: Performed By: #### L 503.6030, L504.2610, L500.4050, L100.0100, L503.6550 #### [facility] [address] [place], [address] Nucleated RBC (Bld) [#/Vol] 0 10*3/uL Normal 0-5 [facility] Comment on above: Performed By: #### L 503.6030, L504.2610, L500.4050, L100.0100, L503.6550 #### [facility] [address] [place], [address] Platelet mean volume (Bld) [Entitic vol] 9.2 fL Normal 6.2-12.0 [facility] Comment on above: Performed By: #### L 503.6030, L504.2610, L500.4050, L100.0100, L503.6550 #### [facility] [address] [place], [address] Platelets (Bld) [#/Vol] 205 10*3/uL Normal 150-450 [facility] Comment on above: Performed By: #### L 503.6030, L504.2610, L500.4050, L100.0100, L503.6550 #### [facility] [address] [place], [address] RBC (Bld) [#/Vol] 3.70 10*6/uL Low 4.2-5.4 [facility] Comment on above: Performed By: #### L 503.6030, L504.2610, L500.4050, L100.0100, L503.6550 #### [facility] [address] [place], [address] RDW SD 49.9 fl High 35.1-43.9 [facility] Comment on above: Performed By: #### L 503.6030, L504.2610, L500.4050, L100.0100, L503.6550 #### [facility] [address] [place], [address] WBC (Bld) [#/Vol] 5.3 10*3/uL Normal 4.4-11.0 [facility] Comment on above: Performed By: #### L 503.6030, L504.2610, L500.4050, L100.0100, L503.6550 #### [facility] [address] [place], [address] Carbon dioxide, total [Moles /volume] in Central venous bloodOrdered By: Josue Leal on 03-22-2025 CO2 [Moles/Vol] 10.8 mmol/L Low 21.0-32.0 [facility] Chloride assayOrdered By: Rubi Leal on 03-22-2025 Chloride [Moles/Vol] 104 mmol/L 98-108 [facility] Comprehensive Metabolic Prof ilon 03-22-2025 Albumin [Mass/Vol] 3.8 g/dL Normal 3.4-4.8 [facility] Comment on above: Performed By: #### L 503.6030, L504.2610, L500.4050, L100.0100, L503.6550 #### [facility] [address] [place], [address] Albumin/Globulin [Mass ratio] 1.4 {ratio} Normal 0.9-2.4 [facility] Comment on above: Performed By: #### L 503.6030, L504.2610, L500.4050, L100.0100, L503.6550 #### [facility] [address] [place], [address] ALK PHOS 43 U/L Normal 35-104 [facility] Comment on above: Performed By: #### L 503.6030, L504.2610, L500.4050, L100.0100, L503.6550 #### [facility] [address] [place], [address] ALT [Catalytic activity/Vol] 11 U/L Normal <=34 [facility] Comment on above: Performed By: #### L 503.6030, L504.2610, L500.4050, L100.0100, L503.6550 #### [facility] [address] [place], [address] AST [Catalytic activity/Vol] 27 U/L Normal <=31 [facility] Comment on above: Performed By: #### L 503.6030, L504.2610, L500.4050, L100.0100, L503.6550 #### [facility] [address] [place], [address] Bilirubin [Mass/Vol] 0.32 mg/dL Normal 0.00-1.30 [facility] Comment on above: Performed By: #### L 503.6030, L504.2610, L500.4050, L100.0100, L503.6550 #### [facility] [address] [place], [address] BUN/CRE 14.9 RATIO Normal 10-20 [facility] Comment on above: Performed By: #### L 503.6030, L504.2610, L500.4050, L100.0100, L503.6550 #### [facility] [address] [place], [address] Calcium [Mass/Vol] 8.8 mg/dL Normal 7.6-11.0 [facility] Comment on above: Performed By: #### L 503.6030, L504.2610, L500.4050, L100.0100, L503.6550 #### [facility] [address] [place], [address] Chloride [Moles/Vol] 104 mmol/L Normal 98-108 [facility] Comment on above: Performed By: #### L 503.6030, L504.2610, L500.4050, L100.0100, L503.6550 #### [facility] [address] [place], [address] CO2 [Moles/Vol] 10.8 mmol/L Low 21.0-32.0 [facility] Comment on above: Performed By: #### L 503.6030, L504.2610, L500.4050, L100.0100, L503.6550 #### [facility] [address] [place], [address] Creatinine [Mass/Vol] 1.27 mg/dL High 0.70-1.20 [facility] Comment on above: Performed By: #### L 503.6030, L504.2610, L500.4050, L100.0100, L503.6550 #### [facility] [address] [place], [address] ECRCL 35.79 ml/min Low 50-250 [facility] Comment on above: Performed By: #### L 503.6030, L504.2610, L500.4050, L100.0100, L503.6550 #### [facility] [address] [place], [address] GAP 26 High 5-15 [facility] Comment on above: Performed By: #### L 503.6030, L504.2610, L500.4050, L100.0100, L503.6550 #### [facility] [address] [place], [address] GFR/1.73 sq M.predicted among non-blacks MDRD (S/P/Bld) [Vol rate/Area] 42 mL/min/{1.73_m2} Low >60 [facility] Comment on above: Result Comment: mL/m in/1.73m2 CKD-EPI Creatinine Equation (2020) Performed By: #### L 503.6030, L504.2610, L500.4050, L100.0100, L503.6550 #### [facility] [address] [place], [address] Globulin (S) [Mass/Vol] 2.7 g/dL Normal 2.2-4.2 [facility] Comment on above: Performed By: #### L 503.6030, L504.2610, L500.4050, L100.0100, L503.6550 #### [facility] [address] [place], [address] Glucose [Mass/Vol] 103 mg/dL High 70-99 [facility] Comment on above: Performed By: #### L 503.6030, L504.2610, L500.4050, L100.0100, L503.6550 #### [facility] [address] [place], [address] Potassium [Moles/Vol] 4.6 mmol/L Normal 3.3-5.1 [facility] Comment on above: Performed By: #### L 503.6030, L504.2610, L500.4050, L100.0100, L503.6550 #### [facility] [address] [place], [address] Sodium [Moles/Vol] 141 mmol/L Normal 133-145 [facility] Comment on above: Performed By: #### L 503.6030, L504.2610, L500.4050, L100.0100, L503.6550 #### [facility] [address] [place], [address] T PROT 6.4 g/dL Normal 5.9-8.4 [facility] Comment on above: Performed By: #### L 503.6030, L504.2610, L500.4050, L100.0100, L503.6550 #### [facility] [address] [place], [address] Urea nitrogen [Mass/Vol] 19 mg/dL Normal 4-19 [facility] Comment on above: Performed By: #### L 503.6030, L504.2610, L500.4050, L100.0100, L503.6550 #### [facility] [address] [place], [address] Eosinophil percentageOrdered By: Josue Leal on 03-22-2025 Eosinophils/100 WBC (Bld) 5.1 % High 0-5 [facility] Erythrocyte distribution wid th ratioOrdered By: Josue Leal on 03-22-2025 Erythrocyte distribution width (RBC) [Ratio] 13.9 % 11.6-14.6 [facility] Erythrocyte distribution wid th standard deviationOrdered By: Josue Leal on 03-22-2025 Erythrocyte distribution width (RBC) [Ratio] 49.9 fl High 35.1-43.9 [facility] Ferritinon 03-22-2025 Ferritin [Mass/Vol] 54 ng/mL Normal 22-378 [facility] Comment on above: Performed By: #### L 503.6030, L504.2610, L500.4050, L100.0100, L503.6550 ####[facility] [address] [place], [address] Glomerular filtration rate ( GFR) estimation/1.73 sq m using serum, plasma, or whole bOrdered By: Josue Leal on 03-22-2025 GFR/1.73 sq M.predicted among non-blacks MDRD (S/P/Bld) [Vol rate/Area] 42 mL/min/{1.73_m2} Low >60 [facility] Comment on above: mL/min/1.73m2 CKD-EP I Creatinine Equation (2020) Hematocrit Auto (Bld) [Volum e fraction]Ordered By: Josue Leal on 03-22-2025 Hematocrit (Bld) [Volume fraction] 35.8 % Low 37-47 [facility] Hemoglobin measurementOrdere d By: Josue Leal on 03-22-2025 Hemoglobin (Bld) [Mass/Vol] 11.3 g/dL Low 12.0-15.0 [facility] Immature granulocytes/100 WB C Auto (Bld)Ordered By: Josue Leal on 03-22-2025 Immature granulocytes/100 WBC (Bld) 0.000 % 0.0-0.9 [facility] Comment on above: IG% - Immature Granu locytes (promyelocytes, myelocytes and metamyelocytes) > 1% indicates that a LEFT SHIFT is Present. Iron measurement (mass/mass) Ordered By: Josue Leal on 03-22-2025 Iron (Unsp spec) [Mass/Mass] 82 ug/dL 50-170 [facility] Iron+Iron Binding Capacityon 03-22-2025 Iron [Mass/Vol] 82 ug/dL Normal 50-170 [facility] Comment on above: Performed By: #### L 503.6030, L504.2610, L500.4050, L100.0100, L503.6550 ####[facility] [address] [place], [address] IRON SATURATION 27.0 Normal 13-59 [facility] Comment on above: Performed By: #### L 503.6030, L504.2610, L500.4050, L100.0100, L503.6550 ####[facility] [address] [place], [address] TIBC 301 ug/dL Normal 250-450 [facility] Comment on above: Performed By: #### L 503.6030, L504.2610, L500.4050, L100.0100, L503.6550 ####[facility] [address] [place], [address] UIBC 219 ug/dL Low 228-428 [facility] Comment on above: Performed By: #### L 503.6030, L504.2610, L500.4050, L100.0100, L503.6550 ####[facility] [address] [place], [address] LDHon 03-22-2025 LDH 144 U/L Normal 84-246 [facility] Comment on above: Order Comment: 1 Performed By: #### L 503.6030, L504.2610, L500.4050, L100.0100, L503.6550 ####[facility] [address] [place], [place], [id number] Laboratory - Chemistry and C hemistry - challengeOrdered By: Josue Leal on 03-22-2025 AST [Catalytic activity/Vol] 27 U/L <32 [facility] Lactate dehydrogenase (LDH) measurementOrdered By: Josue Leal on 03-22-2025 LDH [Catalytic activity/Vol] 144 U/L 84-246 [facility] MCV (mean corpuscular volume ) determinationOrdered By: Josue Leal on 03-22-2025 MCV (RBC) [Entitic vol] 96.8 fL 81-99 [facility] Mean corpuscular hemoglobin (MCH) determinationOrdered By: Josue Leal on 03-22-2025 MCH (RBC) [Entitic mass] 30.5 pg 27.0-32.0 [facility] Mean corpuscular hemoglobin concentration (MCHC) determinationOrdered By: Josue Leal on 03-22-2025 MCHC (RBC) [Mass/Vol] 31.6 g/dL Low 32-36 [facility] Mean platelet volume determi nationOrdered By: Josue Leal on 03-22-2025 Platelet mean volume (Bld) [Entitic vol] 9.2 fL 6.2-12.0 [facility] Monocyte percentageOrdered B y: Josue Leal on 03-22-2025 Monocytes/100 WBC (Bld) 9.1 % 0-10 [facility] Neutrophil percentageOrdered By: Josue Leal on 03-22-2025 Neutrophils/100 WBC (Bld) 46.4 % Low 47-70 [facility] No Panel InformationOrdered By: Josue Leal on 03-22-2025 Unsaturated Iron Binding Capacity 219 ug/dL Low 228-428 [facility] Nucleated red blood cell per centageOrdered By: Josue Leal on 03-22-2025 Nucleated RBC/100 WBC (Bld) [Ratio] 0 % 0-5 [facility] Oncology Visit Reporton 03-03 Oncology Visit Report [facility] [address] [place] [address] OFFICE VISIT Date of Service: 03/22/25 1334 MR#: [id number] Acct: [id number] Name: GAYATHRI CORREIA Rep #: [id number] : 1945 From: Josue Leal MD Age/Sex: 79/F Location: [facility] Status: Signed HPI Subjective Date of Service 03/15/25 Chief Complaint F/u for R breast cancer and osteoporosis. History of Present Illness 79 y.o.woman presented with abnormal mammogram on 02/25/2019 showed 1.3 cm upper outer quadrant mass in the right breast. She had ultrasound-guided biopsy of right breast on 03/05/2019. 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 She had a right breast lumpectomy and sentinel node biopsy on 03/17/2019. Pathology showed Invasive ductal carcinoma with focal mucinous features, tumor size 2cm, grade 2, [place] node 1 is negative. Staging pT1c pN0. [...] for follow up. Has Low back pain/sciatica. [facility] Medical History Osteoporosis Sleep apnea with use of continuous positive airway pressure (CPAP) Cataract, left eye Irritable bowel Wrist fracture, left Lung nodule, multiple Encounter for education Breast cancer, right breast Malignant neoplasm of central portion of right female breast Paroxysmal atrial flutter Spinal stenosis Essential (primary) hypertension detention (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 of anticoagulants Paroxysmal atrial fibrillation [...] 13:35) Medications ???Medication ???Instructions ???Recorded ???Confirmed ???Type dzysiykk-qxbe-bhrd 8 mg-folic 400 1 ea PO DAILY [...] tablet,extended rele (more content not included)... Normal [facility] Platelet countOrdered By: Rubi Leal on 03-22-2025 Platelets (Bld) [#/Vol] 205 10*3/uL 150-450 [facility] Potassium measurement (mass/ volume)Ordered By: Josue Leal on 03-22-2025 Potassium (Unsp spec) [Mass/Vol] 4.6 mmol/L 3.3-5.1 [facility] RBC Auto (Bld) [#/Vol]Ordere d By: Josue Leal on 03-22-2025 RBC (Bld) [#/Vol] 3.70 10*6/uL Low 4.2-5.4 [facility] Serum creatinine measurement (mass/volume)Ordered By: Josue Leal on 03-22-2025 Creatinine [Mass/Vol] 1.27 mg/dL High 0.70-1.20 [facility] Serum globulin measurementOr dered By: Josue Leal on 03-22-2025 Globulin (S) [Mass/Vol] 2.7 g/dL 2.2-4.2 [facility] Serum glucose measurement (m ass/volume)Ordered By: Josue Leal on 03-22-2025 Glucose [Mass/Vol] 103 mg/dL High 70-99 [facility] Serum or plasma alanine weston otransferase (ALT) measurementOrdered By: Josue Leal on 03-22-2025 ALT [Catalytic activity/Vol] 11 U/L <35 [facility] Serum or plasma albumin pk urement (mass/volume)Ordered By: Josue Leal on 03-22-2025 Albumin [Mass/Vol] 3.8 g/dL 3.4-4.8 [facility] Serum or plasma albumin/glob ulin mass ratioOrdered By: Josue Leal on 03-22-2025 Albumin/Globulin [Mass ratio] 1.4 {ratio} 0.9-2.4 [facility] Serum or plasma alkaline aakash sphatase measurementOrdered By: Josue Leal on 03-22-2025 ALP [Catalytic activity/Vol] 43 U/L 35-104 [facility] Serum or plasma calcium pk urement (mass/volume)Ordered By: Josue Leal on 03-22-2025 Calcium [Mass/Vol] 8.8 mg/dL 7.6-11.0 [facility] Serum or plasma ferritin marianna surement (mass/volume)Ordered By: Josue Leal on 03-22-2025 Ferritin [Mass/Vol] 54 ng/mL 22-378 [facility] Serum or plasma iron saturat ion measurement (mass fraction)Ordered By: Josue Leal on 03-22-2025 Iron saturation [Mass fraction] 27.0 % 13-59 [facility] Serum or plasma urea nitroge n measurement (mass/volume)Ordered By: Josue Leal on 03-22-2025 Urea nitrogen [Mass/Vol] 19 mg/dL 4-19 [facility] Sodium levelOrdered By: Aram Leal on 03-22-2025 Sodium [Moles/Vol] 141 mmol/L 133-145 [facility] Total proteinOrdered By: Gonzalo Leal on 03-22-2025 Protein [Mass/Vol] 6.4 g/dL 5.9-8.4 [facility] White blood cell (WBC) count Ordered By: Josue Leal on 03-22-2025 WBC (Bld) [#/Vol] 5.3 10*3/uL 4.4-11.0 [facility] Inital Evaluation (1) - PTon 03-05-2025 Inital Evaluation (1) - PT [facility] Physical [facility] [address] [place] [address] / REHABILITATION SERVICES INITIAL EVALUATION MR#: [id number] Acct: [id number] Name: GAYATHRI CORREIA Rep #: [id number] : 1945 79 From: Murray Quintana PT, Nishant. T, OCS Referring Dr.: Dr. Daniel Lai MD Status: REG RCR Insurance: [employer] PPO SELF PAY INSURANCE Patient's Visit Information Visit Information Visit Information: GAYATHRI CORREIA is a 79 year old F referred to Physical Therapy by Dr. Daniel Lai MD with a diagnosis of LUMBAR DDD WITH IMPINGEMENT RIGHT L5. Date of Evaluation: 03/05/25 Physical Therapist: Murray Quintana PT, Cert T, OCS Visit Plan Frequency: 2x /Week Duration: [...] Yes Cryot (more content not included)... Normal [facility] Pulmonary Visit Reporton Pulmonary Visit Report [facility] [address] [place] [address] OFFICE VISIT Date of Service: 02/26/25 MR#: [id number] Acct: [id number] Name: GAYATHRI CORREIA Rep #: [id number] : 1945 Provider: JUAN Doran Age/Sex: 79/F Location: [place] Status: Signed Assessment and Plan Assessment and [...] you recall, she spends the vega in [place]. She returned to [place] last week. She is not currently on [...] F/u for R breast cancer and osteoporosis. 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 Normal [facility] INR Coag (BldC) [Relative ti me]Ordered By: Juni Epstein on 02-24-2025 INR Coag (Bld) [Relative time] 2.3 {INR} [facility] Comment on above: Critical Value > 4.0 International normalized rat io (INR) measurement by fingerstickOrdered By: Juni Epstein on 02-24-2025 INR Coag (BldC) [Relative time] 2.3 [facility] Comment on above: Critical Value > 4.0 PT Coag (Bld) [Time]Ordered By: Juni Epstein on 02-24-2025 Bedside Prothrombin Time 25.3 SEC High 11.7-14.9 [facility] Protime w/INR Fingerstickon 02-24-2025 INR Coag (PPP) [Relative time] 2.3 {INR} Normal [facility] Comment on above: Result Comment: Crit ical Value > 4.0 Performed By: #### L 300.3900, L506.1001 #### [facility] [address] [place], [address] Protime [place] 25.3 SEC High 11.7-14.9 [facility] Comment on above: Performed By: #### L 300.3900, L506.1001 #### [facility] [address] [place], [address] Whole blood prothrombin time Ordered By: Juni Epstein on 02-24-2025 PT Coag (Bld) [Time] 25.3 s High 11.7-14.9 [facility] No Panel InformationOrdered By: Juni Epstein on 01-14-2025 INR International Normalized Ratio 2.5 [facility] No Panel Informationon 12-17 INR International Normalized Ratio 2.7 [facility] No Panel Informationon 11-30 INR International Normalized Ratio 1.6 [facility] No Panel Informationon 11-26 INR International Normalized Ratio 5.4 High [facility] Prothrombin Time w/INRon INR Normal [facility] Comment on above: Result Comment: FING ERSTICK Performed By: #### L 300.3900 #### [facility] [address] [place], [address] PROTIME Normal 11.7-14.9 [facility] Comment on above: Result Comment: FING ERSTICK Performed By: #### L 300.3900 #### [facility] [address] [place], [address] CBC W/Diff, Automatedon 10-02 Absolute Lymph 2.12 X10 3/uL Normal 0.83-4.51 [facility] Comment on above: Performed By: #### L 300.3900 #### [facility] [address] [place], [address] Absolute Neut 3.3 X10 3/uL Normal 2.0-7.7 [facility] Comment on above: Performed By: #### L 300.3900 #### [facility] [address] [place], [address] Basophils/100 WBC (Bld) 0.5 % Normal 0-1 [facility] Comment on above: Performed By: #### L 300.3900 #### [facility] [address] [place], [address] Eosinophils/100 WBC (Bld) 3.6 % Normal 0-5 [facility] Comment on above: Performed By: #### L 300.3900 #### [facility] [address] [place], [address] Erythrocyte distribution width (RBC) [Ratio] 14.0 % Normal 11.6-14.6 [facility] Comment on above: Performed By: #### L 300.3900 #### [facility] [address] [place], [address] Hematocrit (Bld) [Volume fraction] 35.5 % Low 37-47 [facility] Comment on above: Performed By: #### L 300.3900 #### [facility] [address] [place], [address] Hemoglobin (Bld) [Mass/Vol] 11.2 g/dL Low 12.0-15.0 [facility] Comment on above: Performed By: #### L 300.3900 #### [facility] [address] [place], [address] IG% 0.200 Normal 0.0-0.9 [facility] Comment on above: Result Comment: IG% - Immature Granulocytes (promyelocytes, myelocytes and metamyelocytes) > 1% indicates that a LEFT SHIFT is Present. Performed By: #### L 300.3900 #### [facility] [address] [place], [address] Lymphocytes/100 WBC (Bld) 34.5 % Normal 19-41 [facility] Comment on above: Performed By: #### L 300.3900 #### [facility] [address] [place], [address] MCH (RBC) [Entitic mass] 30.5 pg Normal 27.0-32.0 [facility] Comment on above: Performed By: #### L 300.3900 #### [facility] [address] [place], [address] MCHC (RBC) [Mass/Vol] 31.5 g/dL Low 32-36 [facility] Comment on above: Performed By: #### L 300.3900 #### [facility] [address] [place], [address] MCV (RBC) [Entitic vol] 96.7 fL Normal 81-99 [facility] Comment on above: Performed By: #### L 300.3900 #### [facility] [address] [place], [address] Monocytes/100 WBC (Bld) 6.8 % Normal 0-10 [facility] Comment on above: Performed By: #### L 300.3900 #### [facility] [address] [place], [address] Neutrophils/100 WBC (Bld) 54.4 % Normal 47-70 [facility] Comment on above: Performed By: #### L 300.3900 #### [facility] [address] [place], [address] Nucleated RBC (Bld) [#/Vol] 0 10*3/uL Normal 0-5 [facility] Comment on above: Performed By: #### L 300.3900 #### [facility] [address] [place], [address] Platelet mean volume (Bld) [Entitic vol] 8.8 fL Normal 6.2-12.0 [facility] Comment on above: Performed By: #### L 300.3900 #### [facility] [address] [place], [address] Platelets (Bld) [#/Vol] 199 10*3/uL Normal 150-450 [facility] Comment on above: Performed By: #### L 300.3900 #### [facility] [address] [place], [address] RBC (Bld) [#/Vol] 3.67 10*6/uL Low 4.2-5.4 [facility] Comment on above: Performed By: #### L 300.3900 #### [facility] [address] [place], [address] RDW SD 49.6 fl High 35.1-43.9 [facility] Comment on above: Performed By: #### L 300.3900 #### [facility] [address] [place], [address] WBC (Bld) [#/Vol] 6.1 10*3/uL Normal 4.4-11.0 [facility] Comment on above: Performed By: #### L 873.5344 #### [facility] [address] [place], [address] Cardiology Visit Reporton Cardiology Visit Report [facility] [address] [place] [address] OFFICE VISIT Date of Service: 10/20/24 MR#: [id number] Acct: [id number] Name: GAYATHRI CORREIA Rep #: [id number] : 1945 Provider: JUAN tom Age/Sex: 79/F Location: [facility] Status: Signed HPI HPI History of Present [...] 95 Intake Visit Reasons: 6 M FU Metals Sales Representative Required: No Is patient in pain?: No Allergies No Known Allergies Allergy (Verified 10/20/24 10:47) Medications ???Medication ???Instructions ???Recorded ???Confirmed ???Type yhcretpy-odtj-zivo 8 mg-folic 400 1 ea PO DAILY [...] you fallen in the past year?: Yes PFSH Medical History Osteoporosis Sleep apnea with use of continuous positive airway pressure (CPAP) Cataract, left eye Irritable bowel Wrist fracture, left Lung nodule, multiple Encounter for education Breast cancer, right breast Malignant neoplasm of central portion of right female breast Paroxysmal atrial flutter Spinal stenosis 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 Normal [facility] Lipid Profileon 10-20-2024 Cholesterol [Mass/Vol] 141 mg/dL Normal 200 [facility] Comment on above: Result Comment: <200 mg/dL Desirable 200-240 mg/dL Borderline >240 mg/dL High Risk Performed By: #### L 300.3900, L506.1001 #### [facility] [place], [address] Cholesterol in HDL [Mass/Vol] 56 mg/dL Normal [facility] Comment on above: Result Comment: The drugs N-Acetylcysteine and Metamizole may falsely depress this assay. Reference Range HDL <40 mg/dL Low HDL Cholesterol HDL >or= 60 mg/dL High HDL Cholesterol Performed By: #### L 300.3900, L506.1001 #### [facility] [address] [place], [address] Cholesterol in LDL [Mass/Vol] 63 mg/dL Normal 0-130 [facility] Comment on above: Performed By: #### L 300.3900, L506.1001 #### [facility] [address] [place], [address] Cholesterol in VLDL [Mass/Vol] 22 mg/dL Normal 5-40 [facility] Comment on above: Performed By: #### L 300.3900, L506.1001 #### [facility] [address] [place], [address] Triglyceride [Mass/Vol] 110 mg/dL Normal [facility] Comment on above: Result Comment: The drugs N-Acetylcysteine and Metamizole may falsely depress this assay. Serum Triglycerides Reference Interval Normal <150 mg/dL Borderline high 150 - 199 mg/dL High 200 - 499 mg/dL Very High > or = 500 mg/dL Performed By: #### L 300.3900, L506.1001 #### [facility] [address] [place], [address] Liver Profileon 10-20-2024 Albumin [Mass/Vol] 3.5 g/dL Normal 3.2-5.0 [facility] Comment on above: Performed By: #### L 300.3900, L506.1001 #### [facility] [address] [place], [address] ALK P 38 U/L Low 45-117 [facility] Comment on above: Performed By: #### L 300.3900, L506.1001 #### [facility] [address] [place], [address] ALT [Catalytic activity/Vol] 18 U/L Normal 13-56 [facility] Comment on above: Performed By: #### L 300.3900, L506.1001 #### [facility] [address] [place], [address] AST [Catalytic activity/Vol] 21 U/L Normal 15-37 [facility] Comment on above: Performed By: #### L 300.3900, L506.1001 #### [facility] [address] [place], [address] Bilirubin [Mass/Vol] 0.50 mg/dL Normal 0.20-1.00 [facility] Comment on above: Result Comment: For patients on eltrombopag therapy, use of Dimension [place] TBIL is not recommended. Performed By: #### L 300.3900, L506.1001 #### [facility] [address] [place], [address] Bilirubin.direct [Mass/Vol] 0.15 mg/dL Normal 0.00-0.30 [facility] Comment on above: Performed By: #### L 300.3900, L506.1001 #### [facility] [address] [place], [address] Globulin (S) [Mass/Vol] 2.9 g/dL Normal 2.2-4.2 [facility] Comment on above: Performed By: #### L 300.3900, L506.1001 #### [facility] [address] [place], [address] T PROT 6.4 g/dL Normal 6.4-8.2 [facility] Comment on above: Performed By: #### L 300.3900, L506.1001 #### [facility] [address] [place], [address] Protime w/INR Fingerstickon 10-20-2024 INR Coag (PPP) [Relative time] 1.6 {INR} Normal [facility] Comment on above: Result Comment: Crit ical Value > 4.0 Performed By: #### L 9200.0000 ####[facility] [id number] [place], [place], [address] Protime [place] 18.6 SEC High 11.7-14.9 [facility] Comment on above: Performed By: #### L 9200.0000 ####[facility] [id number] [place], [place], [address] Dexa Bone Density Studyon Dexa Bone Density Study [facility] [address] [place], [place] [address] Dexa Bone Density Study MR#: [id number] Acct: [id number] Name: GAYATHRI CORREIA Rep #: [id number] : 1945 F 79 From: Forrest riojas MD PCP: Dr. Daniel Lai MD Status: [facility] Study: Dexa Bone Density Study Date of Exam: 10/15/24 Exam# [id number] Ordering Dr: Josue Leal MD -[id number] STUDY: DUAL ENERGY X-RAY ABSORPTIOMETRY / [...] Signed: Forrest Rodriguez MD at 15:23 EST , CC: Dr. Daniel Lai MD; Dr. Josue Leal MD Political Science Chair: Signed Normal [facility] SCRN MAMM (CAD)W/DOC BILATo n 10-15-2024 SCRN MAMM (CAD)W/DOC BILAT [facility] Imaging Services [address] [place], [place] [address] SCRN MAMM (CAD)W/DOC BILAT MR#: [id number] Acct: [id number] Name: GAYATHRI CORREIA Rep #: [id number] : 1945 F 79 From: Forrest riojas MD PCP: Dr. Daniel Lai MD Status: [facility] Study: SCRN MAMM (CAD)W/DOC BILAT Date of Exam: 10/02 03/25 Exam# [id number] Ordering Dr: Josue Leal MD -[id number] MAMMOGRAPHY - BILATERAL SCREENING REASON FOR [...] delay biopsy of a clinically suspicious abnormality. [id number] Electronically Signed: Forrest Rodriguez MD at 15:43 EST , CC: Dr. Daniel Lai MD; Dr. Josue Leal MD Political Science Chair: Signed Normal [facility] Magnesium measurementOrdered By: Josue Leal on 09-14-2024 Magnesium [Mass/Vol] 2.1 mg/dL 1.6-2.6 [facility] Capillary blood internationa l normalized ratio (INR)Ordered By: Juni Epstein on 03-27-2024 INR Coag (BldC) [Relative time] 3.1 [facility] Comment on above: Critical Value > 4.0 Whole blood prothrombin time Ordered By: Juni Epstein on 03-27-2024 PT Coag (Bld) [Time] 33.6 s 11.7-14.9 [facility] Absolute lymphocyte countOrd ered By: Josue Leal on 03-16-2024 Lymphocytes Auto (Unsp spec) [#/Vol] 2.26 10*3/uL 0.83-4.51 [facility] Automated lymphocyte count a s percentage of total leukocytesOrdered By: Josue Leal on 03-16-2024 Lymphocytes/100 WBC Auto (Unsp spec) 42.2 % 19-41 [facility] Basophil percentageOrdered B y: Josue Leal on 03-16-2024 Basophil percentage 2.6 mg/dL 2.5-4.9 [facility] Basophils/100 WBC (Bld) 0.6 % 0-1 [facility] Bilirubin [Mass/Vol] 0.40 mg/dL 0.20-1.00 [facility] Comment on above: For patients on eltr ombopag therapy, use of Dimension [place] TBIL is not recommended. Chloride [Moles/Vol] 106 mmol/L 98-107 [facility] Eosinophils/100 WBC (Bld) 5.0 % 0-5 [facility] Glucose [Mass/Vol] 160 mg/dL 74-106 [facility] Comment on above: Fasting Glucose resu lt greater than or equal to 126 mg/dL suggests DIABETES MELLITUS per A.D.A. criteria. Hemoglobin (Bld) [Mass/Vol] 11.9 g/dL 12.0-15.0 [facility] LDH [Catalytic activity/Vol] 171 U/L 84-246 [facility] Monocytes/100 WBC (Bld) 6.2 % 0-10 [facility] Neutrophils (Bld) [#/Vol] 2.5 10*3/uL 2.0-7.7 [facility] Neutrophils/100 WBC (Bld) 46.0 % 47-70 [facility] Potassium [Moles/Vol] 4.4 mmol/L 3.5-5.1 [facility] Protein [Mass/Vol] 6.6 g/dL 6.4-8.2 [facility] Sodium [Moles/Vol] 139 mmol/L 136-145 [facility] WBC (Bld) [#/Vol] 5.4 10*3/uL 4.4-11.0 [facility] Determination of erythrocyte mean corpuscular volume (MCV)Ordered By: Josue Leal on 03-16-2024 MCV (RBC) [Entitic vol] 97.2 fL 81-99 [facility] Erythrocyte distribution wid th ratioOrdered By: Josue Leal on 03-16-2024 Erythrocyte distribution width (RBC) [Ratio] 13.6 % 11.6-14.6 [facility] Erythrocyte distribution wid th standard deviationOrdered By: Josue Leal on 03-16-2024 Erythrocyte distribution width (RBC) [Entitic vol] 48.4 fL 35.1-43.9 [facility] Hematocrit Auto (Bld) [Volum e fraction]Ordered By: Josue Leal on 03-16-2024 Hematocrit (Bld) [Volume fraction] 37.6 % 37-47 [facility] Immature granulocytes/100 WB C Auto (Bld)Ordered By: Josue Leal on 03-16-2024 Immature granulocytes/100 WBC (Bld) 0.000 % 0.0-0.9 [facility] Comment on above: IG% - Immature Granu locytes (promyelocytes, myelocytes and metamyelocytes) > 1% indicates that a LEFT SHIFT is Present. Laboratory - Chemistry and C hemistry - challengeOrdered By: Josue Leal on 03-16-2024 Albumin/Globulin [Mass ratio] 1.0 {ratio} 0.9-2.4 [facility] ALP [Catalytic activity/Vol] 40 U/L 45-117 [facility] ALT [Catalytic activity/Vol] 21 U/L 13-56 [facility] CO2 [Moles/Vol] 27.0 mmol/L 21.0-32.0 [facility] Globulin (S) [Mass/Vol] 3.3 g/dL 2.2-4.2 [facility] Magnesium [Mass/Vol] 2.1 mg/dL 1.6-2.6 [facility] Urea nitrogen/Creatinine [Mass ratio] 10.7 mg/mg 10-20 [facility] - Hematology and Cell countsOrdered By: Josue Leal on 03-16-2024 MCH (RBC) [Entitic mass] 30.7 pg 27.0-32.0 [facility] MCHC (RBC) [Mass/Vol] 31.6 g/dL 32-36 [facility] Nucleated RBC/100 WBC (Bld) [Ratio] 0 % 0-5 [facility] Platelet mean volume (Bld) [Entitic vol] 8.9 fL 6.2-12.0 [facility] Platelets (Bld) [#/Vol] 207 10*3/uL 150-450 [facility] No Panel InformationOrdered By: Josue Leal on 03-16-2024 Estimated Creatinine Clearance Calc 41.94 ml/min [facility] Estimated GFR (MDRD) Amer 60 mL/min >60 [facility] Comment on above: GFR Calc Estimated GFR (MDRD) Non-Af Amer 50 mL/min >60 [facility] Comment on above: Non- GFR Calc Vitamin D 25-Hydroxy 76.5 ng/mL [facility] Comment on above: Vitamin D 25(OH) Sta tus Range Deficiency <20 ng/mL (50nmol/L) Insufficiency 20 - 30 ng/mL (50 - 75 nmol/L) Sufficiency 30 - 100 ng/mL (75 - 250 nmol/L) Toxicity >100 ng/mL (>250 nmol/L) RBC Auto (Bld) [#/Vol]Ordere d By: Josue Leal on 03-16-2024 RBC (Bld) [#/Vol] 3.87 10*6/uL 4.2-5.4 [facility] Serum or plasma calcium pk urement (mass/volume)Ordered By: Josue Leal on 03-16-2024 Calcium [Mass/Vol] 8.5 mg/dL 8.5-10.1 [facility] Serum or plasma creatinine m easurement (mass/volume)Ordered By: Josue Leal on 03-16-2024 Creatinine [Mass/Vol] 1.12 mg/dL 0.55-1.02 [facility] Comment on above: The validity of the calculated GFR & GFRAA in patients over 70 years has not been determined. Clinical correlation is essential. Serum or plasma urea nitroge n measurement (mass/volume)Ordered By: Josue Leal on 03-16-2024 Urea nitrogen [Mass/Vol] 12 mg/dL 7-18 [facility] Thin prep Papanicolaou smear with manual screeningOrdered By: Josue Leal on 03-16-2024 Thin prep Papanicolaou smear with manual screening 3.3 g/dL 3.2-5.0 [facility] Thin prep Papanicolaou smear with manual screening 23 U/L 37 [facility] Thin prep Papanicolaou smear with manual screening 6 5-15 [facility] No Panel Informationon 01-16 INR International Normalized Ratio 2.2 [facility] No Panel Informationon 12-19 INR International Normalized Ratio 3.1 [facility] Laboratory - CoagulationOrde red By: Juni Epstein on 10-09-2023 INR Coag (Bld) [Relative time] 2.4 {INR} [facility] Comment on above: Critical Value > 4.0 Whole blood prothrombin time Ordered By: Juni Epstein on 10-09-2023 PT Coag (Bld) [Time] 26.0 s 11.7-14.9 [facility] Laboratory - CoagulationOrde red By: Juni Epstein on 09-11-2023 INR Coag (Bld) [Relative time] 1.9 {INR} [facility] Comment on above: Critical Value > 4.0 Whole blood prothrombin time Ordered By: Juni Epstein on 09-11-2023 PT Coag (Bld) [Time] 21.1 s 11.7-14.9 [facility] Absolute lymphocyte countOrd ered By: Josue Leal on 08-20-2023 Lymphocytes Auto (Unsp spec) [#/Vol] 2.48 10*3/uL 0.83-4.51 [facility] Basophil percentageOrdered B y: Josue Leal on 08-20-2023 Basophils/100 WBC (Bld) 0.9 % 0-1 [facility] Bilirubin [Mass/Vol] 0.40 mg/dL 0.20-1.00 [facility] Comment on above: For patients on eltr ombopag therapy, use of Dimension [place] TBIL is not recommended. Chloride [Moles/Vol] 104 mmol/L 98-107 [facility] Eosinophils/100 WBC (Bld) 5.3 % 0-5 [facility] Glucose [Mass/Vol] 122 mg/dL 74-106 [facility] Comment on above: Fasting Glucose resu lt from 100 to 125 mg/dL suggests IMPAIRED HOMEOSTASIS per A.D.A. criteria. LDH [Catalytic activity/Vol] 167 U/L 84-246 [facility] Neutrophils (Bld) [#/Vol] 2.2 10*3/uL 2.0-7.7 [facility] Neutrophils/100 WBC (Bld) 40.6 % 47-70 [facility] Potassium [Moles/Vol] 4.1 mmol/L 3.5-5.1 [facility] Protein [Mass/Vol] 6.8 g/dL 6.4-8.2 [facility] Sodium [Moles/Vol] 138 mmol/L 136-145 [facility] WBC (Bld) [#/Vol] 5.5 10*3/uL 4.4-11.0 [facility] Blood erythrocytes count (nu mber/volume)Ordered By: Josue Leal on 08-20-2023 RBC (Bld) [#/Vol] 3.81 10*6/uL 4.2-5.4 [facility] Blood hemoglobin measurement (mass/volume)Ordered By: Josue Leal on 08-20-2023 Hemoglobin (Bld) [Mass/Vol] 11.6 g/dL 12.0-15.0 [facility] Blood lymphocytes/100 leukoc ytesOrdered By: Josue Leal on 08-20-2023 Lymphocytes/100 WBC (Bld) 45.3 % 19-41 [facility] Blood monocytes/100 leukocyt esOrdered By: Josue Leal on 08-20-2023 Monocytes/100 WBC (Bld) 7.5 % 0-10 [facility] Blood platelet mean volumeOr dered By: Josue Leal on 08-20-2023 Platelet mean volume (Bld) [Entitic vol] 9.0 fL 6.2-12.0 [facility] Determination of erythrocyte mean corpuscular volume (MCV)Ordered By: Josue Leal on 08-20-2023 MCV (RBC) [Entitic vol] 98.4 fL 81-99 [facility] Hematocrit Auto (Bld) [Volum e fraction]Ordered By: Josue Leal on 08-20-2023 Hematocrit (Bld) [Volume fraction] 37.5 % 37-47 [facility] - Chemistry and C hemistry - challengeOrdered By: Josue Leal on 08-20-2023 ALP [Catalytic activity/Vol] 75 U/L 45-117 [facility] ALT [Catalytic activity/Vol] 23 U/L 13-56 [facility] CO2 [Moles/Vol] 30.0 mmol/L 21.0-32.0 [facility] Globulin (S) [Mass/Vol] 3.3 g/dL 2.2-4.2 [facility] Urea nitrogen/Creatinine [Mass ratio] 19.1 mg/mg 10-20 [facility] - Hematology and Cell countsOrdered By: Josue Leal on 08-20-2023 Erythrocyte distribution width (RBC) [Entitic vol] 50.7 fL 35.1-43.9 [facility] Erythrocyte distribution width (RBC) [Ratio] 14.1 % 11.6-14.6 [facility] Immature granulocytes/100 WBC (Bld) 0.400 % 0.0-0.9 [facility] Comment on above: IG% - Immature Granu locytes (promyelocytes, myelocytes and metamyelocytes) > 1% indicates that a LEFT SHIFT is Present. MCH (RBC) [Entitic mass] 30.4 pg 27.0-32.0 [facility] Nucleated RBC/100 WBC (Bld) [Ratio] 0 % 0-5 [facility] MCHC Auto (RBC) [Mass/Vol]Or dered By: Josue Leal on 08-20-2023 MCHC (RBC) [Mass/Vol] 30.9 g/dL 32-36 [facility] No Panel InformationOrdered By: Josue Leal on 08-20-2023 Estimated Creatinine Clearance Calc 22.86 ml/min [facility] Estimated GFR (MDRD) Amer 46 mL/min >60 [facility] Comment on above: GFR Calc Estimated GFR (MDRD) Non-Af Amer 38 mL/min >60 [facility] Comment on above: Non- GFR Calc Vitamin D 25-Hydroxy 50.9 ng/mL [facility] Comment on above: Vitamin D 25(OH) Sta tus Range Deficiency <20 ng/mL (50nmol/L) Insufficiency 20 - 30 ng/mL (50 - 75 nmol/L) Sufficiency 30 - 100 ng/mL (75 - 250 nmol/L) Toxicity >100 ng/mL (>250 nmol/L) Platelets bldOrdered By: Gonzalo Leal on 08-20-2023 Platelets (Bld) [#/Vol] 221 10*3/uL 150-450 [facility] Serum or plasma albumin pk urement (mass/volume)Ordered By: Josue Leal on 08-20-2023 Albumin [Mass/Vol] 3.5 g/dL 3.2-5.0 [facility] Serum or plasma albumin/glob ulin mass ratioOrdered By: Josue Leal on 08-20-2023 Albumin/Globulin [Mass ratio] 1.1 {ratio} 0.9-2.4 [facility] Serum or plasma calcium pk urement (mass/volume)Ordered By: Josue Leal on 08-20-2023 Calcium [Mass/Vol] 8.4 mg/dL 8.5-10.1 [facility] Serum or plasma creatinine m easurement (mass/volume)Ordered By: Josue Leal on 08-20-2023 Creatinine [Mass/Vol] 1.41 mg/dL 0.55-1.02 [facility] Comment on above: The validity of the calculated GFR & GFRAA in patients over 70 years has not been determined. Clinical correlation is essential. Serum or plasma urea nitroge n measurement (mass/volume)Ordered By: Josue Leal on 08-20-2023 Urea nitrogen [Mass/Vol] 27 mg/dL 7-18 [facility] Thin prep Papanicolaou smear with manual screeningOrdered By: Josue Leal on 08-20-2023 Thin prep Papanicolaou smear with manual screening 22 U/L 15-37 [facility] Thin prep Papanicolaou smear with manual screening 4 5-15 [facility] - CoagulationOrde red By: Juni Epstein on 08-09-2023 INR Coag (Bld) [Relative time] 2.6 {INR} [facility] Comment on above: Critical Value > 4.0 Whole blood prothrombin time Ordered By: Juni Epstein on 08-09-2023 PT Coag (Bld) [Time] 28.3 s 11.7-14.9 [facility] Basophil percentageOrdered B y: J Luis Ranney on 07-30-2023 Bilirubin [Mass/Vol] 0.50 mg/dL 0.20-1.00 [facility] Comment on above: For patients on eltr ombopag therapy, use of Dimension [place] TBIL is not recommended. Chloride [Moles/Vol] 104 mmol/L 98-107 [facility] Cholesterol [Mass/Vol] 149 mg/dL <200 [facility] Comment on above: <200 mg/dL Desirable 200-240 mg/dL Borderline >240 mg/dL High Risk Glucose [Mass/Vol] 109 mg/dL 74-106 [facility] Comment on above: Fasting Glucose resu lt from 100 to 125 mg/dL suggests IMPAIRED HOMEOSTASIS per A.D.A. criteria. Potassium [Moles/Vol] 4.7 mmol/L 3.5-5.1 [facility] Protein [Mass/Vol] 6.6 g/dL 6.4-8.2 [facility] Sodium [Moles/Vol] 139 mmol/L 136-145 [facility] Triglyceride [Mass/Vol] 126 mg/dL <199 [facility] Comment on above: The drugs N-Acetylcy steine and Metamizole may falsely depress this assay.Serum Triglycerides Reference Interval Normal <150 mg/dL Borderline high 150 - 199 mg/dL High 200 - 499 mg/dL Very High > or = 500 mg/dL WBC (Bld) [#/Vol] 5.1 10*3/uL 4.4-11.0 [facility] Blood erythrocytes count (nu mber/volume)Ordered By: J Luis Lai on 07-30-2023 RBC (Bld) [#/Vol] 3.82 10*6/uL 4.2-5.4 [facility] Blood hemoglobin measurement (mass/volume)Ordered By: J Luis Lai on 07-30-2023 Hemoglobin (Bld) [Mass/Vol] 11.6 g/dL 12.0-15.0 [facility] Blood platelet mean volumeOr dered By: J Luis Lai on 07-30-2023 Platelet mean volume (Bld) [Entitic vol] 9.6 fL 6.2-12.0 [facility] Determination of erythrocyte mean corpuscular volume (MCV)Ordered By: J Luis Lai on 07-30-2023 MCV (RBC) [Entitic vol] 99.2 fL 81-99 [facility] Hematocrit Auto (Bld) [Volum e fraction]Ordered By: J Luis Lai on 07-30-2023 Hematocrit (Bld) [Volume fraction] 37.9 % 37-47 [facility] Laboratory - Chemistry and C hemistry - challengeOrdered By: J Luis Lai on 07-30-2023 ALP [Catalytic activity/Vol] 64 U/L 45-117 [facility] ALT [Catalytic activity/Vol] 22 U/L 13-56 [facility] CO2 [Moles/Vol] 30.0 mmol/L 21.0-32.0 [facility] Cobalamin (Vitamin B12) [Mass/Vol] 447 pg/mL 211-911 [facility] Globulin (S) [Mass/Vol] 3.1 g/dL 2.2-4.2 [facility] Urea nitrogen/Creatinine [Mass ratio] 11.7 mg/mg 10-20 [facility] - Hematology and Cell countsOrdered By: J Luis Lai on 07-30-2023 Erythrocyte distribution width (RBC) [Entitic vol] 50.6 fL 35.1-43.9 [facility] Erythrocyte distribution width (RBC) [Ratio] 13.9 % 11.6-14.6 [facility] MCH (RBC) [Entitic mass] 30.4 pg 27.0-32.0 [facility] MCHC Auto (RBC) [Mass/Vol]Or dered By: J Luis Lai on 07-30-2023 MCHC (RBC) [Mass/Vol] 30.6 g/dL 32-36 [facility] No Panel InformationOrdered By: J Luis Lai on 07-30-2023 Estimated GFR (MDRD) Amer 61 mL/min >60 [facility] Comment on above: GFR Calc Estimated GFR (MDRD) Non-Af Amer 50 mL/min >60 [facility] Comment on above: Non- GFR Calc Thyroid Stimulating Hormone (TSH) 2.07 uIU/mL 0.358-3.74 [facility] Vitamin D 25-Hydroxy 53.3 ng/mL [facility] Comment on above: Vitamin D 25(OH) Sta tus Range Deficiency <20 ng/mL (50nmol/L) Insufficiency 20 - 30 ng/mL (50 - 75 nmol/L) Sufficiency 30 - 100 ng/mL (75 - 250 nmol/L) Toxicity >100 ng/mL (>250 nmol/L) Platelets bldOrdered By: Jeromy Lai on 07-30-2023 Platelets (Bld) [#/Vol] 211 10*3/uL 150-450 [facility] Serum or plasma albumin pk urement (mass/volume)Ordered By: J Luis Lai on 07-30-2023 Albumin [Mass/Vol] 3.5 g/dL 3.2-5.0 [facility] Serum or plasma albumin/glob ulin mass ratioOrdered By: J Luis Lai on 07-30-2023 Albumin/Globulin [Mass ratio] 1.1 {ratio} 0.9-2.4 [facility] Serum or plasma calcium pk urement (mass/volume)Ordered By: J Luis Lai on 07-30-2023 Calcium [Mass/Vol] 9.0 mg/dL 8.5-10.1 [facility] Serum or plasma cholesterol in HDL measurement (mass/volume)Ordered By: J Luis Lai on 07-30-2023 Cholesterol in HDL [Mass/Vol] 49 mg/dL >40 [facility] Comment on above: The drugs N-Acetylcy steine and Metamizole may falsely depress this assay. Reference Range HDL <40 mg/dL Low HDL Cholesterol HDL >or= 60 mg/dL High HDL Cholesterol Serum or plasma cholesterol in VLDL measurement (mass/volume)Ordered By: J Luis Lai on 07-30-2023 Cholesterol in VLDL [Mass/Vol] 25 mg/dL 5-40 [facility] [facility] Serum or plasma creatinine m easurement (mass/volume)Ordered By: J Luis Lai on 07-30-2023 Creatinine [Mass/Vol] 1.11 mg/dL 0.55-1.02 [facility] Comment on above: The validity of the calculated GFR & GFRAA in patients over 70 years has not been determined. Clinical correlation is essential. Serum or plasma low density lipoprotein (LDL) cholesterol measurement (mass/volume)Ordered By: J Luis Lai on 07-30-2023 Cholesterol in LDL [Mass/Vol] 75 mg/dL 0-130 [facility] Serum or plasma urea nitroge n measurement (mass/volume)Ordered By: J Luis Lai on 07-30-2023 Urea nitrogen [Mass/Vol] 13 mg/dL 7-18 [facility] Thin prep Papanicolaou smear with manual screeningOrdered By: J Luis Lai on 07-30-2023 Thin prep Papanicolaou smear with manual screening 21 U/L 15-37 [facility] Thin prep Papanicolaou smear with manual screening 5 5-15 [facility] Laboratory - CoagulationOrde red By: Juni Epstein on 08-04-2023 INR Coag (Bld) [Relative time] 2.7 {INR} [facility] Comment on above: Critical Value > 4.0 Whole blood prothrombin time Ordered By: Juni Epstein on 07-05-2023 PT Coag (Bld) [Time] 29.5 s 11.7-14.9 [facility] Laboratory - CoagulationOrde red By: Juni Epstein on 05-27-2023 INR Coag (Bld) [Relative time] 2.1 {INR} [facility] Comment on above: Critical Value > 4.0 Whole blood prothrombin time Ordered By: Juni Epsetin on 05-27-2023 PT Coag (Bld) [Time] 22.8 s 11.7-14.9 [facility] Laboratory - CoagulationOrde red By: Dr. Epstein on 04-12-2023 INR Coag (Bld) [Relative time] 2.9 {INR} [facility] Comment on above: Critical Value > 4.0 Whole blood prothrombin time Ordered By: Dr. Epstein on 04-12-2023 PT Coag (Bld) [Time] 31.0 s 11.7-14.9 [facility] No Panel Informationon 01-24 INR International Normalized Ratio 2.4 [facility] Laboratory - Coagulationon 1 12-24-2021 INR Coag (Bld) [Relative time] 2.2 {INR} [facility] Work Phone: Comment on above: Critical Value > 4.0 Whole blood prothrombin time on 10-24-2022 PT Coag (Bld) [Time] 26.0 s 11.7-14.9 [facility] Work Phone: No Panel Informationon 09-25 Miscellaneous Test See comment [facility] Work Phone: Comment on above: TEST RESULT LIMITSVi tamin D, 25-HydroxyVitamin D, 25-Hydroxy 26.9 Low ng/mL 30.0-100.0Vitamin D deficiency has been defined by the [place] of[place] and an Endocrine Society practice guideline as alevel of serum 25-OH vitamin D less than 20 ng/mL (1,2).The Endocrine Society went on to further define vitamin Dinsufficiency as a level between 21 and 29 ng/mL (2).1. IOM (Four [place] of Medicine). 2010. Dietary reference intakes for calcium and D. [place]: The National Academies Press.2. Yu MF, Tracy RUIZ, Wai ACRDOZA, et al. Evaluation, treatment, and prevention of vitamin D deficiency: an Endocrine Society clinical practice guideline. JCEM. 2010; 96(7):1911-30. [facility]. ORIGINAL REPORT ON FILE IN LAB CONTAINS ADDITIONAL TEST SITE INFORMATION. Basophil percentageon 2021 Basophil percentage 2.9 mg/dL 2.5-4.9 [place] [facility] Work Phone: [phone] Chloride [Moles/Vol] 108 mmol/L 98-[address] [facility] Work Phone: [phone] Glucose [Mass/Vol] 80 mg/dL 74-106 [place] [facility] Work Phone: [phone] Potassium [Moles/Vol] 4.5 mmol/L 3.5-5.1 [place] [facility] Work Phone: [phone] Sodium [Moles/Vol] 140 mmol/L 136-145 [place] [facility] Work Phone: [phone] Laboratory - Chemistry and C hemistry - challengeon 09-19-2022 CO2 [Moles/Vol] 29.0 mmol/L 21.0-32.0 [facility] Work Phone: [phone] Urea nitrogen/Creatinine [Mass ratio] 11.7 mg/mg 09-20 [facility] Work Phone: [phone] No Panel Informationon 09-19 Estimated GFR (MDRD) Amer 67 mL/min >60 [facility] Work Phone: Comment on above: GFR Calc Estimated GFR (MDRD) Non-Af Amer 55 mL/min >60 [facility] Work Phone: Comment on above: Non- GFR Calc Ionized Calcium 5.1 mg/dL 4.5-5.6 [facility] Work Phone: Comment on above: Performed at: [facility] [address] [id number] Director: Humble Green PhD, Phone: [phone] Parathyroid Hormone (Intact) 252.7 pg/mL 18.4-80.1 [facility] Work Phone: Thyroid Stimulating Hormone (TSH) 1.82 uIU/mL 0.358-3.74 [facility] Work Phone: Serum or plasma calcium pk urement (mass/volume)on 09-19-2022 Calcium [Mass/Vol] 8.6 mg/dL 8.5-10.1 [facility] Work Phone: Serum or plasma creatinine m easurement (mass/volume)on 09-19-2022 Creatinine [Mass/Vol] 1.03 mg/dL 0.55-1.02 [facility] Work Phone: Comment on above: The validity of the calculated GFR & GFRAA in patients over 70 years has not been determined. Clinical correlation is essential. Serum or plasma urea nitroge n measurement (mass/volume)on 09-19-2022 Urea nitrogen [Mass/Vol] 12 mg/dL 7-18 [facility] Work Phone: Thin prep Papanicolaou smear with manual screeningon 09-19-2022 Thin prep Papanicolaou smear with manual screening 3 5-15 [facility] Work Phone: Absolute lymphocyte counton 09-07-2022 Lymphocytes Auto (Unsp spec) [#/Vol] 1.89 10*3/uL 0.83-4.51 [facility] Work Phone: Basophil percentageon 2021 Basophil percentage 0 SEEN /hpf 0-5 [facility] Work Phone: [phone] Basophils/100 WBC (Bld) 0.5 % 0-1 [facility] Work Phone: [phone] Chloride [Moles/Vol] 107 mmol/L 98-107 [facility] Work Phone: [phone] Eosinophils/100 WBC (Bld) 3.5 % 0-5 [facility] Work Phone: [phone] Glucose [Mass/Vol] 72 mg/dL 74-106 [facility] Work Phone: [phone] Neutrophils (Bld) [#/Vol] 3.1 10*3/uL 2.0-7.7 [facility] Work Phone: [phone] Neutrophils/100 WBC (Bld) 54.1 % 47-70 [facility] Work Phone: [phone] Potassium [Moles/Vol] 3.9 mmol/L 3.5-5.1 [facility]: [phone] Sodium [Moles/Vol] 142 mmol/L 136-145 [facility] Work Phone: WBC (Bld) [#/Vol] 5.7 10*3/uL 4.4-11.0 [facility] Work Phone: Bilirubin Test strip Ql (U)o n 09-07-2022 Bilirubin Ql (U) Negative Negative [facility] Work Phone: Blood erythrocytes count (nu mber/volume)on 09-07-2022 RBC (Bld) [#/Vol] 3.67 10*6/uL 4.2-5.4 [facility] Work Phone: Blood hemoglobin measurement (mass/volume)on 09-07-2022 Hemoglobin (Bld) [Mass/Vol] 11.4 g/dL 12.0-15.0 [facility] Work Phone: Blood lymphocytes/100 leukoc yteson 09-07-2022 Lymphocytes/100 WBC (Bld) 33.0 % 19-41 [facility] Work Phone: Blood monocytes/100 leukocyt eson 09-07-2022 Monocytes/100 WBC (Bld) 8.6 % 0-10 [facility] Work Phone: Blood platelet mean volumeon 09-07-2022 Platelet mean volume (Bld) [Entitic vol] 9.1 fL 6.2-12.0 [facility] Work Phone: Determination of erythrocyte mean corpuscular volume (MCV)on 09-07-2022 MCV (RBC) [Entitic vol] 99.2 fL 81-99 [facility] Work Phone: Hematocrit Auto (Bld) [Volum e fraction]on 09-07-2022 Hematocrit (Bld) [Volume fraction] 36.4 % 37-47 [facility] Work Phone: Hyaline casts LM.LPF (Urine sed) [#/Area]on 09-07-2022 Hyaline casts (Urine sed) [#/Area] 25 /[LPF] 0-5 [facility] Work Phone: INR in Blood by Coagulation assayon 09-07-2022 INR Coag (Bld) [Relative time] 2.3 {INR} [facility] Work Phone: Ketones Test strip Ql (U)on 09-07-2022 Ketones Ql (U) Negative Negative [facility] Work Phone: Laboratory - Chemistry and C hemistry - challengeon 09-07-2022 CO2 [Moles/Vol] 29.0 mmol/L 21.0-32.0 [facility] Work Phone: Urea nitrogen/Creatinine [Mass ratio] 11.3 mg/mg 10-20 [facility] Work Phone: Laboratory - Coagulationon PT Coag (PPP) [Time] 25.4 s 11.7-14.9 [facility] Work Phone: Laboratory - Hematology and Cell countson 09-07-2022 Erythrocyte distribution width (RBC) [Entitic vol] 48.9 fL 35.1-43.9 [facility] Work Phone: Erythrocyte distribution width (RBC) [Ratio] 13.4 % 11.6-14.6 [facility] Work Phone: Immature granulocytes/100 WBC (Bld) 0.300 % 0.0-0.9 [facility] Work Phone: Comment on above: IG% - Immature Granu locytes (promyelocytes, myelocytes and metamyelocytes) > 1% indicates that a LEFT SHIFT is Present. MCH (RBC) [Entitic mass] 31.1 pg 27.0-32.0 [facility] Work Phone: Nucleated RBC/100 WBC (Bld) [Ratio] 0 % 0-5 [facility] Work Phone: MCHC Auto (RBC) [Mass/Vol]on 09-07-2022 MCHC (RBC) [Mass/Vol] 31.3 g/dL 32-36 [facility] Work Phone: Mucus LM Ql (Urine sed)on Mucus Ql (Urine sed) 3+ /hpf [facility] Work Phone: Nitrite Test strip Ql (U)on 09-07-2022 Nitrite Ql (U) Negative Negative [facility] Work Phone: No Panel Informationon 09-07 Estimated Creatinine Clearance Calc 66.51 ml/min [facility] Work Phone: Estimated GFR (MDRD) Amer 64 mL/min >60 [facility] Work Phone: Comment on above: GFR Calc Estimated GFR (MDRD) Non-Af Amer 53 mL/min >60 [facility] Work Phone: Comment on above: Non- GFR Calc Troponin I High Sensitivity 3 pg/mL 3.0-54.0 [facility] Work Phone: Comment on above: Please Note: New Crystal t Units and Gender Specific Reference Ranges. For more information see Policy Stat Procedure [place] High Sensitivity Troponin (TNIH) and attachments. Platelets bldon 09-07-2022 Platelets (Bld) [#/Vol] 210 10*3/uL 150-450 [facility] Work Phone: Protein Test strip Ql (U)on 09-07-2022 Protein Ql (U) Negative Negative [facility] Work Phone: Serum or plasma calcium pk urement (mass/volume)on 09-07-2022 Calcium [Mass/Vol] 8.2 mg/dL 8.5-10.1 [facility] Work Phone: Serum or plasma creatinine m easurement (mass/volume)on 09-07-2022 Creatinine [Mass/Vol] 1.06 mg/dL 0.55-1.02 [facility] Work Phone: Comment on above: The validity of the calculated GFR & GFRAA in patients over 70 years has not been determined. Clinical correlation is essential. Serum or plasma urea nitroge n measurement (mass/volume)on 09-07-2022 Urea nitrogen [Mass/Vol] 12 mg/dL 7-18 [facility] Work Phone: Squamous epithelial cells de tection in urine sediment by light microscopyon 09-07-2022 Epithelial cells.squamous LM Ql (Urine sed) 0-5 SEEN /hpf 5-10 [facility] Work Phone: Thin prep Papanicolaou smear with manual screeningon 09-07-2022 Thin prep Papanicolaou smear with manual screening 6 5-15 [facility] Work Phone: Urine blood detectionon 10-0 RBC Ql (U) Negative Negative [facility] Work Phone: RBC Ql (U) 0 SEEN /hpf 0-5 [facility] Work Phone: Urine clarityon 09-07-2022 Clarity (U) Clear Clear [facility] Work Phone: Urine color determinationon 09-07-2022 Color (U) Yellow Yellow [facility] Work Phone: Urine glucose detectionon Glucose Ql (U) Normal mg/dl Normal [facility] Work Phone: Urine leukocyte esterase det ection by dipstickon 09-07-2022 Leukocyte esterase Test strip Ql (U) Negative Negative [facility] Work Phone: Urine pHon 09-07-2022 pH (U) 5.0 [pH] 5.0 - 8.0 [facility] Work Phone: Urine sediment bacteria coun t by microscopy (number/high power field)on 09-07-2022 Bacteria LM.HPF (Urine sed) [#/Area] 1 /[HPF] None Seen [facility] Work Phone: Urine specific gravity measu rementon 09-07-2022 Specific gravity (U) [Rel density] 1.020 1.002-1.030 [facility] Work Phone: Urobilinogen Auto test strip Ql (U)on 09-07-2022 Urobilinogen Ql (U) Normal mg/dl Normal [facility] Work Phone: Laboratory - Coagulationon 0 07-17-2022 INR Coag (Bld) [Relative time] 2.5 {INR} [facility] Work Phone: Comment on above: Critical Value > 4.0 Whole blood prothrombin time on 07-17-2022 PT Coag (Bld) [Time] 28.9 s 11.7-14.9 [facility] Work Phone: Absolute lymphocyte counton 06-13-2022 Lymphocytes Auto (Unsp spec) [#/Vol] 2.01 10*3/uL 0.83-4.51 [facility] Work Phone: Basophil percentageon 2021 Basophils/100 WBC (Bld) 0.6 % 0-1 [facility] Work Phone: Bilirubin [Mass/Vol] 0.30 mg/dL 0.20-1.00 [facility] Work Phone: [phone] Comment on above: For patients on eltr ombopag therapy, use of Dimension [place] TBIL is not recommended. Chloride [Moles/Vol] 105 mmol/L 98-107 [facility] Work Phone: [phone] Eosinophils/100 WBC (Bld) 5.0 % 0-5 [facility] Work Phone: Glucose [Mass/Vol] 111 mg/dL 74-106 [facility] Work Phone: Comment on above: Fasting Glucose resu lt from 100 to 125 mg/dL suggests IMPAIRED HOMEOSTASIS per A.D.A. criteria. Neutrophils (Bld) [#/Vol] 2.6 10*3/uL 2.0-7.7 [facility] Work Phone: Neutrophils/100 WBC (Bld) 49.0 % 47-70 [facility] Work Phone: Potassium [Moles/Vol] 3.9 mmol/L 3.5-5.1 [facility] Work Phone: Protein [Mass/Vol] 6.5 g/dL 6.4-8.2 [facility] Work Phone: [phone] Sodium [Moles/Vol] 140 mmol/L 136-145 [facility] Work Phone: WBC (Bld) [#/Vol] 5.2 10*3/uL 4.4-11.0 [facility] Work Phone: Blood erythrocytes count (nu mber/volume)on 06-13-2022 RBC (Bld) [#/Vol] 3.76 10*6/uL 4.2-5.4 [facility] Work Phone: Blood hemoglobin measurement (mass/volume)on 06-13-2022 Hemoglobin (Bld) [Mass/Vol] 11.4 g/dL 12.0-15.0 [facility] Work Phone: Blood lymphocytes/100 leukoc yteson 06-13-2022 Lymphocytes/100 WBC (Bld) 38.7 % 19-41 [facility] Work Phone: Blood monocytes/100 leukocyt eson 06-13-2022 Monocytes/100 WBC (Bld) 6.5 % 0-10 [facility] Work Phone: Blood platelet mean volumeon 06-13-2022 Platelet mean volume (Bld) [Entitic vol] 9.7 fL 6.2-12.0 [facility] Work Phone: Determination of erythrocyte mean corpuscular volume (MCV)on 06-13-2022 MCV (RBC) [Entitic vol] 97.6 fL 81-99 [facility] Work Phone: Hematocrit Auto (Bld) [Volum e fraction]on 06-13-2022 Hematocrit (Bld) [Volume fraction] 36.7 % 37-47 [facility] Work Phone: INR in Blood by Coagulation assayon 06-13-2022 INR Coag (Bld) [Relative time] 1.8 {INR} [facility] Work Phone: Laboratory - Chemistry and C hemistry - challengeon 06-13-2022 ALP [Catalytic activity/Vol] 75 U/L 45-117 [facility] Work Phone: ALT [Catalytic activity/Vol] 19 U/L 13-56 [facility] Work Phone: CO2 [Moles/Vol] 32.0 mmol/L 21.0-32.0 [facility] Work Phone: Globulin (S) [Mass/Vol] 3.1 g/dL 2.2-4.2 [facility] Work Phone: Urea nitrogen/Creatinine [Mass ratio] 12.1 mg/mg 10-20 [facility] Work Phone: Laboratory - Coagulationon 0 06-13-2022 PT Coag (PPP) [Time] 20.7 s 11.7-14.9 [facility] Work Phone: Laboratory - Hematology and Cell countson 06-13-2022 Erythrocyte distribution width (RBC) [Entitic vol] 49.7 fL 35.1-43.9 [facility] Work Phone: Erythrocyte distribution width (RBC) [Ratio] 13.8 % 11.6-14.6 [facility] Work Phone: Immature granulocytes/100 WBC (Bld) 0.200 % 0.0-0.9 [facility] Work Phone: Comment on above: IG% - Immature Granu locytes (promyelocytes, myelocytes and metamyelocytes) > 1% indicates that a LEFT SHIFT is Present. MCH (RBC) [Entitic mass] 30.3 pg 27.0-32.0 [facility] Work Phone: Nucleated RBC/100 WBC (Bld) [Ratio] 0 % 0-5 [facility] Work Phone: MCHC Auto (RBC) [Mass/Vol]on 06-13-2022 MCHC (RBC) [Mass/Vol] 31.1 g/dL 32-36 [facility] Work Phone: No Panel Informationon 06-13 Estimated GFR (MDRD) Amer 64 mL/min >60 [facility] Work Phone: Comment on above: GFR Calc Estimated GFR (MDRD) Non-Af Amer 53 mL/min >60 [facility] Work Phone: Comment on above: Non- GFR Calc Platelets bldon 06-13-2022 Platelets (Bld) [#/Vol] 206 10*3/uL 150-450 [facility] Work Phone: Serum or plasma albumin pk urement (mass/volume)on 06-13-2022 Albumin [Mass/Vol] 3.4 g/dL 3.2-5.0 [facility] Work Phone: Serum or plasma albumin/glob ulin mass ratioon 06-13-2022 Albumin/Globulin [Mass ratio] 1.1 {ratio} 0.9-2.4 [facility] Work Phone: Serum or plasma calcium pk urement (mass/volume)on 06-13-2022 Calcium [Mass/Vol] 8.7 mg/dL 8.5-10.1 [facility] Work Phone: Serum or plasma creatinine m easurement (mass/volume)on 06-13-2022 Creatinine [Mass/Vol] 1.07 mg/dL 0.55-1.02 [facility] Work Phone: Comment on above: The validity of the calculated GFR & GFRAA in patients over 70 years has not been determined. Clinical correlation is essential. Serum or plasma urea nitroge n measurement (mass/volume)on 06-13-2022 Urea nitrogen [Mass/Vol] 13 mg/dL 7-18 [facility] Work Phone: Thin prep Papanicolaou smear with manual screeningon 06-13-2022 Thin prep Papanicolaou smear with manual screening 23 U/L 15-37 [facility] Work Phone: Thin prep Papanicolaou smear with manual screening 3 5-15 [facility] Work Phone: Thin prep Papanicolaou smear with manual screening 164 U/L 84-246 [facility] Work Phone: Laboratory - Coagulationon 0 04-24-2022 INR Coag (Bld) [Relative time] 2.2 {INR} [facility] Work Phone: Comment on above: Critical Value > 4.0 Whole blood prothrombin time on 04-24-2022 PT Coag (Bld) [Time] 26.1 s 11.7-14.9 [facility] Work Phone: Laboratory - Coagulationon 0 03-30-2022 INR Coag (Bld) [Relative time] 1.9 {INR} [facility] Work Phone: Comment on above: Critical Value > 4.0 Whole blood prothrombin time on 03-30-2022 PT Coag (Bld) [Time] 23.1 s 11.7-14.9 [facility] Work Phone: Absolute lymphocyte counton 03-21-2022 Lymphocytes Auto (Unsp spec) [#/Vol] 1.66 10*3/uL 0.83-4.51 [facility] Work Phone: Basophil percentageon 2021 Basophils/100 WBC (Bld) 1.1 % 0-1 [facility] Work Phone: Chloride [Moles/Vol] 104 mmol/L 98-107 [facility] Work Phone: Eosinophils/100 WBC (Bld) 6.5 % 0-5 [facility] Work Phone: Glucose [Mass/Vol] 129 mg/dL 74-106 [facility] Work Phone: Comment on above: Fasting Glucose resu lt greater than or equal to 126 mg/dL suggests DIABETES MELLITUS per A.D.A. criteria. Neutrophils (Bld) [#/Vol] 3.0 10*3/uL 2.0-7.7 [facility] Work Phone: Neutrophils/100 WBC (Bld) 55.2 % 47-70 [facility] Work Phone: Potassium [Moles/Vol] 4.2 mmol/L 3.5-5.1 [facility]: Sodium [Moles/Vol] 138 mmol/L 136-145 [facility] Work Phone: WBC (Bld) [#/Vol] 5.4 10*3/uL 4.4-11.0 [facility] Work Phone: Blood erythrocytes count (nu mber/volume)on 03-21-2022 RBC (Bld) [#/Vol] 3.44 10*6/uL 4.2-5.4 [facility] Blood hemoglobin measurement (mass/volume)on 03-21-2022 Hemoglobin (Bld) [Mass/Vol] 10.7 g/dL 12.0-15.0 [facility] Work Phone: Blood lymphocytes/100 leukoc yteson 03-21-2022 Lymphocytes/100 WBC (Bld) 30.7 % 19-41 [facility] Work Phone: Blood monocytes/100 leukocyt eson 03-21-2022 Monocytes/100 WBC (Bld) 6.3 % 0-10 [facility] Work Phone: Blood platelet mean volumeon 03-21-2022 Platelet mean volume (Bld) [Entitic vol] 9.1 fL 6.2-12.0 [facility] Work Phone: Determination of erythrocyte mean corpuscular volume (MCV)on 03-21-2022 MCV (RBC) [Entitic vol] 97.1 fL 81-99 [facility] Work Phone: Hematocrit Auto (Bld) [Volum e fraction]on 03-21-2022 Hematocrit (Bld) [Volume fraction] 33.4 % 37-47 [facility] Work Phone: Hemoglobin in reticulocytes (mass per reticulocyte)on 03-21-2022 Hemoglobin (Reticulocytes) [Entitic mass] 30.3 pg 30-35 [facility] Work Phone: Iron measurement (mass/mass) on 03-21-2022 Iron (Unsp spec) [Mass/Mass] 43 ug/dL 50-170 [facility] Work Phone: Laboratory - Chemistry and C hemistry - challengeon 03-21-2022 Natriuretic peptide B (Bld) [Mass/Vol] 121.2 pg/mL 0-100 [facility] Work Phone: CO2 [Moles/Vol] 29.0 mmol/L 21.0-32.0 [facility] Work Phone: Cobalamin (Vitamin B12) [Mass/Vol] 754 pg/mL 211-911 [facility] Work Phone: Urea nitrogen/Creatinine [Mass ratio] 11.0 mg/mg 10-20 [facility] Work Phone: Laboratory - Hematology and Cell countson 03-21-2022 Erythrocyte distribution width (RBC) [Entitic vol] 48.7 fL 35.1-43.9 [facility] Work Phone: Erythrocyte distribution width (RBC) [Ratio] 13.8 % 11.6-14.6 [facility] Work Phone: Immature granulocytes/100 WBC (Bld) 0.200 % 0.0-0.9 [facility] Work Phone: Comment on above: IG% - Immature Granu locytes (promyelocytes, myelocytes and metamyelocytes) > 1% indicates that a LEFT SHIFT is Present. MCH (RBC) [Entitic mass] 31.1 pg 27.0-32.0 [facility] Work Phone: Nucleated RBC/100 WBC (Bld) [Ratio] 0 % 0-5 [facility] Work Phone: MCHC Auto (RBC) [Mass/Vol]on 03-21-2022 MCHC (RBC) [Mass/Vol] 32.0 g/dL 32-36 [facility] Work Phone: No Panel Informationon 03-21 Estimated GFR (MDRD) Amer 57 mL/min >60 [facility] Work Phone: Comment on above: GFR Calc Estimated GFR (MDRD) Non-Af Amer 47 mL/min >60 [facility] Work Phone: Comment on above: Non- GFR Calc Immature Reticulocyte Fraction 27.80 % 3.00-15.90 [facility] Work Phone: Reticulocyte Count 2.65 % 0.5-1.5 [facility] Work Phone: Thyroid Stimulating Hormone (TSH) 1.79 uIU/mL 0.358-3.74 [facility] Work Phone: Total Iron Binding Capacity 321 ug/dL 250-450 [facility] Work Phone: Platelets bldon 03-21-2022 Platelets (Bld) [#/Vol] 353 10*3/uL 150-450 [facility] Work Phone: Serum or plasma calcium pk urement (mass/volume)on 03-21-2022 Calcium [Mass/Vol] 8.7 mg/dL 8.5-10.1 [facility] Work Phone: Serum or plasma creatinine m easurement (mass/volume)on 03-21-2022 Creatinine [Mass/Vol] 1.18 mg/dL 0.55-1.02 [facility] Work Phone: Comment on above: The validity of the calculated GFR & GFRAA in patients over 70 years has not been determined. Clinical correlation is essential. Serum or plasma ferritin marianna surement (mass/volume)on 03-21-2022 Ferritin [Mass/Vol] 68 ng/mL 8-252 [facility] Work Phone: Serum or plasma urea nitroge n measurement (mass/volume)on 03-21-2022 Urea nitrogen [Mass/Vol] 13 mg/dL 7-18 [facility] Work Phone: Thin prep Papanicolaou smear with manual screeningon 03-21-2022 Thin prep Papanicolaou smear with manual screening 5 5-15 [facility] Work Phone: .Auto Diffon 03-07-2022 Basophil, Absolute 0.00 10 3/mcL Normal 0.00-0.19 [facility] ([place]) Comment on above: Performed By: #### A LB, GFR, CBC, BMP, ABOG, ANSG, ADIFF, A1C, ANEU #### [address] [address] Basophils/100 WBC (Bld) 0.0 % Normal 0.0-2.5 [facility] ([place]) Comment on above: Performed By: #### A LB, GFR, CBC, BMP, ABOG, ANSG, ADIFF, A1C, ANEU #### [address] [address] Eosinophil, Absolute 0.00 10 3/mcL Normal 0.00-0.40 [facility] ([place]) Comment on above: Performed By: #### A LB, GFR, CBC, BMP, ABOG, ANSG, ADIFF, A1C, ANEU #### [address] [address] Eosinophils/100 WBC (Bld) 0.1 % Normal 0.0-7.0 [facility] ([place]) Comment on above: Performed By: #### A LB, GFR, CBC, BMP, ABOG, ANSG, ADIFF, A1C, ANEU #### [address] [address] Lymphocyte, Absolute 1.20 10 3/mcL Normal 0.77-3.85 [facility] ([place]) Comment on above: Performed By: #### A LB, GFR, CBC, BMP, ABOG, ANSG, ADIFF, A1C, ANEU #### [address] [address] Lymphocytes/100 WBC (Bld) 14.1 % Normal 10.0-50.0 [facility] ([place]) Comment on above: Performed By: #### A LB, GFR, CBC, BMP, ABOG, ANSG, ADIFF, A1C, ANEU #### [address] [address] Monocyte, Absolute 0.60 10 3/mcL Normal 0.15-1.00 [facility] ([place]) Comment on above: Performed By: #### A LB, GFR, CBC, BMP, ABOG, ANSG, ADIFF, A1C, ANEU #### [address] [address] Monocytes/100 WBC (Bld) 7.0 % Normal 1.7-13.0 [facility] ([place]) Comment on above: Performed By: #### A LB, GFR, CBC, BMP, ABOG, ANSG, ADIFF, A1C, ANEU #### [address] [address] Neutrophils/100 WBC (Bld) 78.8 % Normal 37.0-80.0 [facility] ([place]) Comment on above: Performed By: #### A LB, GFR, CBC, BMP, ABOG, ANSG, ADIFF, A1C, ANEU #### [address] [address] .GFRon 03-07-2022 GFR 50 ml/min/1.73sqm Normal [facility] ([place]) Comment on above: Result Comment: GFR Population [...] BMP, ABOG, ANSG, ADIFF, A1C, ANEU #### [address] [address] GFR Non- 41 ml/min/1.73sqm Normal [facility] ([place]) Comment on above: Result Comment: GFR Population [...] BMP, ABOG, ANSG, ADIFF, A1C, ANEU #### [address] [address] .NEUABSon 03-07-2022 Neutrophil, Absolute 6.50 10 3/mcL High 2.85-6.16 [facility] ([place]) Comment on above: Performed By: #### A LB, GFR, CBC, BMP, ABOG, ANSG, ADIFF, A1C, ANEU #### [address] [address] BMPon 03-07-2022 BUN/Creatinine Ratio 17 ratio Normal 7-27 [facility] ([place]) Comment on above: Performed By: #### A LB, GFR, CBC, BMP, ABOG, ANSG, ADIFF, A1C, ANEU #### [address] [address] Calcium [Mass/Vol] 8.4 mg/dL Normal 8.4-10.2 [facility] ([place]) Comment on above: Performed By: #### A LB, GFR, CBC, BMP, ABOG, ANSG, ADIFF, A1C, ANEU #### [address] [address] Chloride [Moles/Vol] 103 mmol/L Normal 98-107 [facility] ([place]) Comment on above: Performed By: #### A LB, GFR, CBC, BMP, ABOG, ANSG, ADIFF, A1C, ANEU #### [address] [address] CO2 [Moles/Vol] 27 mmol/L Normal 23-31 [facility] ([place]) Comment on above: Performed By: #### A LB, GFR, CBC, BMP, ABOG, ANSG, ADIFF, A1C, ANEU #### [address] [address] Creatinine [Mass/Vol] 1.26 mg/dL High 0.55-1.02 [facility] ([place]) Comment on above: Performed By: #### A LB, GFR, CBC, BMP, ABOG, ANSG, ADIFF, A1C, ANEU #### [address] [address] Electrolyte Balance 8.0 mEq/L Normal 4.0-15.0 [facility] ([place]) Comment on above: Performed By: #### A LB, GFR, CBC, BMP, ABOG, ANSG, ADIFF, A1C, ANEU #### [address] [address] Glucose [Mass/Vol] 138 mg/dL High 83-110 [facility] ([place]) Comment on above: Performed By: #### A LB, GFR, CBC, BMP, ABOG, ANSG, ADIFF, A1C, ANEU #### [address] [address] Potassium [Moles/Vol] 5.1 mmol/L Normal 3.5-5.1 [facility] ([place]) Comment on above: Performed By: #### A LB, GFR, CBC, BMP, ABOG, ANSG, ADIFF, A1C, ANEU #### [address] [address] Sodium [Moles/Vol] 138 mmol/L Normal 136-145 [facility] ([place]) Comment on above: Performed By: #### A LB, GFR, CBC, BMP, ABOG, ANSG, ADIFF, A1C, ANEU #### [address] [address] Urea nitrogen [Mass/Vol] 22 mg/dL High 7-18 [facility] ([place]) Comment on above: Performed By: #### A LB, GFR, CBC, BMP, ABOG, ANSG, ADIFF, A1C, ANEU #### [address] [address] CBCon 03-07-2022 Erythrocyte distribution width (RBC) [Ratio] 14.2 % Normal 11.5-14.5 [facility] ([place]) Comment on above: Performed By: #### A LB, GFR, CBC, BMP, ABOG, ANSG, ADIFF, A1C, ANEU #### [place] [address] Hematocrit (Bld) [Volume fraction] 29.2 % Low 37.0-47.0 [facility] ([place]) Comment on above: Performed By: #### A LB, GFR, CBC, BMP, ABOG, ANSG, ADIFF, A1C, ANEU #### [place] [address] Hgb 9.9 G/dL Low 12.0-16.0 [facility] ([place]) Comment on above: Performed By: #### A LB, GFR, CBC, BMP, ABOG, ANSG, ADIFF, A1C, ANEU #### [address] [address] MCH (RBC) [Entitic mass] 31.8 pg High 27.0-31.2 [facility] ([place]) Comment on above: Performed By: #### A LB, GFR, CBC, BMP, ABOG, ANSG, ADIFF, A1C, ANEU #### [place] [address] MCHC 33.9 G/dL Normal 33.0-37.0 [facility] ([place]) Comment on above: Performed By: #### A LB, GFR, CBC, BMP, ABOG, ANSG, ADIFF, A1C, ANEU #### [place] [address] MCV (RBC) [Entitic vol] 93.9 fL Normal 80.0-94.0 [facility] ([place]) Comment on above: Performed By: #### A LB, GFR, CBC, BMP, ABOG, ANSG, ADIFF, A1C, ANEU #### [address] [address] Platelet 189 10 3/mcL Normal 130-400 [facility] ([place]) Comment on above: Performed By: #### A LB, GFR, CBC, BMP, ABOG, ANSG, ADIFF, A1C, ANEU #### [address] [address] Platelet mean volume (Bld) [Entitic vol] 7.3 fL Low 7.4-10.4 [facility] ([place]) Comment on above: Performed By: #### A LB, GFR, CBC, BMP, ABOG, ANSG, ADIFF, A1C, ANEU #### [address] [address] RBC 3.11 10 6/mcL Low 4.20-5.40 [facility] ([place]) Comment on above: Performed By: #### A LB, GFR, CBC, BMP, ABOG, ANSG, ADIFF, A1C, ANEU #### [address] [address] WBC 8.20 10 3/mcL Normal 4.60-10.80 [facility] ([place]) Comment on above: Performed By: #### A LB, GFR, CBC, BMP, ABOG, ANSG, ADIFF, A1C, ANEU #### [address] [address] LABORATORYOrdered By: Danya Marie on 03-07-2022 Basophil, [...] (PPP) [Relative time] 1.0 {INR} Normal 0.9-1.2 [facility] ([place]) Comment on above: Order Comment: order ed secondary to warfarin order Result Comment: Gianluca dard Dose 2.0 - 3.0 High Dose 2.5 - 3.5 The recommended therapeutic range for oral anticoagulant therapy is: LOW RISK: Prophylaxis of venous thrombosis INR: 2.0 - 3.0 Treatment of pulmonary embolism 2.0 - 3.0 Prevention of systemic embolism 2.0 - 3.0 HIGH RISK: Mechanical prosthetic valves 2.5 - 3.5 Performed By: #### P RO #### [address] [id number] [place], [place] [address] PT Coag (PPP) [Time] 11.3 s Normal 9.7-14.3 [facility] ([place]) Comment on above: Order Comment: order ed secondary to warfarin order Performed By: #### P RO #### [address] [address] Gel ABOon 03-06-2022 ABO/Rh Interp Positive Invalid Interpretation Code [facility] ([place]) Comment on above: Performed By: #### A LB, GFR, CBC, BMP, ABOG, ANSG, ADIFF, A1C, ANEU #### [place] [id number] [place], [place] [address] Gel ABSon 03-06-2022 Antibody Screen Gel Negative Normal [facility] ([place]) Comment on above: Performed By: #### A LB, GFR, CBC, BMP, ABOG, ANSG, ADIFF, A1C, ANEU #### [place] [id number] [place], [place] [address] LABORATORYOrdered By: Mireille Quintanilla on 03-06-2022 Glucose [Mass/Vol] 138 mg/dL Invalid Interpretation Code 82 - 115 mg/dL [facility] LABORATORYOrdered By: Elsa White on 03-06-2022 ABO/Rh [...] Invalid Interpretation Code 82 - 115 mg/dL [facility] PROon 03-06-2022 INR Coag (PPP) [Relative time] 1.0 {INR} Normal 0.9-1.2 [facility] ([place]) Comment on above: Result Comment: Gianluca dard [...] BMP, ABOG, ANSG, ADIFF, A1C, ANEU #### [place] [id number] [place], [place] [address] PT Coag (PPP) [Time] 11.0 s Normal 9.7-14.3 [facility] ([place] Comment on above: Performed By: #### A LB, GFR, CBC, BMP, ABOG, ANSG, ADIFF, A1C, ANEU #### [address] [address] XR SHOULDER MINIMUM 2 VIEWS LEFTon 03-06-2022 [...] 03/06/2022 10:53:36 AM Ordering Provider: SANTHOSH Gonzalez [facility] ([place]) .Auto Diffon 02-19-2022 Basophil, Absolute 0.00 10 3/mcL Normal 0.00-0.19 [facility] ([place]) Comment on above: Performed By: #### A LB, GFR, CBC, BMP, ABOG, ANSG, ADIFF, A1C, ANEU #### [address] [address] Basophils/100 WBC (Bld) 0.7 % Normal 0.0-2.5 [facility] ([place]) Comment on above: Performed By: #### A LB, GFR, CBC, BMP, ABOG, ANSG, ADIFF, A1C, ANEU #### [address] [address] Eosinophil, Absolute 0.30 10 3/mcL Normal 0.00-0.40 [facility] ([place]) Comment on above: Performed By: #### A LB, GFR, CBC, BMP, ABOG, ANSG, ADIFF, A1C, ANEU #### [address] [address] Eosinophils/100 WBC (Bld) 5.6 % Normal 0.0-7.0 [facility] ([place]) Comment on above: Performed By: #### A LB, GFR, CBC, BMP, ABOG, ANSG, ADIFF, A1C, ANEU #### [address] [address] Lymphocyte, Absolute 1.50 10 3/mcL Normal 0.77-3.85 [facility] ([place]) Comment on above: Performed By: #### A LB, GFR, CBC, BMP, ABOG, ANSG, ADIFF, A1C, ANEU #### [address] [address] Lymphocytes/100 WBC (Bld) 30.8 % Normal 10.0-50.0 [facility] ([place]) Comment on above: Performed By: #### A LB, GFR, CBC, BMP, ABOG, ANSG, ADIFF, A1C, ANEU #### [address] [address] Monocyte, Absolute 0.30 10 3/mcL Normal 0.15-1.00 [facility] ([place]) Comment on above: Performed By: #### A LB, GFR, CBC, BMP, ABOG, ANSG, ADIFF, A1C, ANEU #### [address] [address] Monocytes/100 WBC (Bld) 6.5 % Normal 1.7-13.0 [facility] ([place]) Comment on above: Performed By: #### A LB, GFR, CBC, BMP, ABOG, ANSG, ADIFF, A1C, ANEU #### [address] [address] Neutrophils/100 WBC (Bld) 56.4 % Normal 37.0-80.0 [facility] ([place]) Comment on above: Performed By: #### A LB, GFR, CBC, BMP, ABOG, ANSG, ADIFF, A1C, ANEU #### [address] [address] .GFRon 02-19-2022 GFR 50 ml/min/1.73sqm Normal [facility] ([place]) Comment on above: Result Comment: GFR Population [...] BMP, ABOG, ANSG, ADIFF, A1C, ANEU #### [address] [address] GFR Non- 41 ml/min/1.73sqm Normal [facility] ([place]) Comment on above: Result Comment: GFR Population [...] BMP, ABOG, ANSG, ADIFF, A1C, ANEU #### [address] [address] .NEUABSon 02-19-2022 Neutrophil, Absolute 2.80 10 3/mcL Low 2.85-6.16 [facility] ([place]) Comment on above: Performed By: #### A LB, GFR, CBC, BMP, ABOG, ANSG, ADIFF, A1C, ANEU #### [place] [address] A1Con 02-19-2022 HbA1c (Bld) [Mass fraction] 6.4 % Normal 4.3-6.4 [facility] ([place]) Comment on above: Performed By: #### A LB, GFR, CBC, BMP, ABOG, ANSG, ADIFF, A1C, ANEU #### [address] [address] ALBon 02-19-2022 Albumin Level 3.4 G/dL Normal 3.4-4.8 [facility] ([place]) Comment on above: Performed By: #### A LB, GFR, CBC, BMP, ABOG, ANSG, ADIFF, A1C, ANEU #### [address] [address] BMPon 02-19-2022 BUN/Creatinine Ratio 13 ratio Normal 7-27 [facility] ([place]) Comment on above: Performed By: #### A LB, GFR, CBC, BMP, ABOG, ANSG, ADIFF, A1C, ANEU #### [address] [address] Calcium [Mass/Vol] 8.6 mg/dL Normal 8.4-10.2 [facility] ([place]) Comment on above: Performed By: #### A LB, GFR, CBC, BMP, ABOG, ANSG, ADIFF, A1C, ANEU #### [address] [address] Chloride [Moles/Vol] 103 mmol/L Normal 98-107 [facility] ([place]) Comment on above: Performed By: #### A LB, GFR, CBC, BMP, ABOG, ANSG, ADIFF, A1C, ANEU #### [address] [address] CO2 [Moles/Vol] 32 mmol/L High 23-31 [facility] ([place]) Comment on above: Performed By: #### A LB, GFR, CBC, BMP, ABOG, ANSG, ADIFF, A1C, ANEU #### [address] [address] Creatinine [Mass/Vol] 1.25 mg/dL High 0.55-1.02 [facility] ([place]) Comment on above: Performed By: #### A LB, GFR, CBC, BMP, ABOG, ANSG, ADIFF, A1C, ANEU #### [address] [address] Electrolyte Balance 7.0 mEq/L Normal 4.0-15.0 [facility] ([place]) Comment on above: Performed By: #### A LB, GFR, CBC, BMP, ABOG, ANSG, ADIFF, A1C, ANEU #### [address] [address] Glucose [Mass/Vol] 111 mg/dL High 83-110 [facility] ([place]) Comment on above: Performed By: #### A LB, GFR, CBC, BMP, ABOG, ANSG, ADIFF, A1C, ANEU #### [address] [address] Potassium [Moles/Vol] 4.9 mmol/L Normal 3.5-5.1 [facility] ([place]) Comment on above: Performed By: #### A LB, GFR, CBC, BMP, ABOG, ANSG, ADIFF, A1C, ANEU #### [address] [address] Sodium [Moles/Vol] 142 mmol/L Normal 136-145 [facility] ([place]) Comment on above: Performed By: #### A LB, GFR, CBC, BMP, ABOG, ANSG, ADIFF, A1C, ANEU #### [place] [id number] Urea nitrogen [Mass/Vol] 16 mg/dL Normal 7-18 [facility] ([place]) Comment on above: Performed By: #### A LB, GFR, CBC, BMP, ABOG, ANSG, ADIFF, A1C, ANEU #### [place] [id number] CBCon 02-19-2022 Erythrocyte distribution width (RBC) [Ratio] 13.6 % Normal 11.5-14.5 [facility] ([place]) Comment on above: Order Comment: Pre-A dmission Testing Performed By: #### A LB, GFR, CBC, BMP, ABOG, ANSG, ADIFF, A1C, ANEU #### [place] [id number] Hematocrit (Bld) [Volume fraction] 36.0 % Low 37.0-47.0 [facility] ([place]) Comment on above: Order Comment: Pre-A dmission Testing Performed By: #### A LB, GFR, CBC, BMP, ABOG, ANSG, ADIFF, A1C, ANEU #### [place] [address] Hgb 11.8 G/dL Low 12.0-16.0 [facility] ([place]) Comment on above: Order Comment: Pre-A dmission Testing Performed By: #### A LB, GFR, CBC, BMP, ABOG, ANSG, ADIFF, A1C, ANEU #### [address] [address] MCH (RBC) [Entitic mass] 30.7 pg Normal 27.0-31.2 [facility] ([place]) Comment on above: Order Comment: Pre-A dmission Testing Performed By: #### A LB, GFR, CBC, BMP, ABOG, ANSG, ADIFF, A1C, ANEU #### [place] [address] MCHC 32.8 G/dL Low 33.0-37.0 [facility] ([place]) Comment on above: Order Comment: Pre-A dmission Testing Performed By: #### A LB, GFR, CBC, BMP, ABOG, ANSG, ADIFF, A1C, ANEU #### [address] [address] MCV (RBC) [Entitic vol] 93.5 fL Normal 80.0-94.0 [facility] ([place]) Comment on above: Order Comment: Pre-A dmission Testing Performed By: #### A LB, GFR, CBC, BMP, ABOG, ANSG, ADIFF, A1C, ANEU #### [address] [address] Platelet 204 10 3/mcL Normal 130-400 [facility] ([place]) Comment on above: Order Comment: Pre-A dmission Testing Performed By: #### A LB, GFR, CBC, BMP, ABOG, ANSG, ADIFF, A1C, ANEU #### [address] [address] Platelet mean volume (Bld) [Entitic vol] 7.7 fL Normal 7.4-10.4 [facility] ([place]) Comment on above: Order Comment: Pre-A dmission Testing Performed By: #### A LB, GFR, CBC, BMP, ABOG, ANSG, ADIFF, A1C, ANEU #### [address] [address] RBC 3.85 10 6/mcL Low 4.20-5.40 [facility] ([place]) Comment on above: Order Comment: Pre-A dmission Testing Performed By: #### A LB, GFR, CBC, BMP, ABOG, ANSG, ADIFF, A1C, ANEU #### [address] [address] WBC 4.90 10 3/mcL Normal 4.60-10.80 [facility] ([place]) Comment on above: Order Comment: Pre-A dmission Testing Performed By: #### A LB, GFR, CBC, BMP, ABOG, ANSG, ADIFF, A1C, ANEU #### [facility] [address] [place], [place] [address] Gel ABOon 02-19-2022 ABO/Rh Interp Positive Invalid Interpretation Code [facility] ([place]) Comment on above: Order Comment: SURG SHILOH 03/06/22 -AC Performed By: #### A LB, GFR, CBC, BMP, ABOG, ANSG, ADIFF, A1C, ANEU #### [place] [address] [place], [place] [address] Gel ABSon 02-19-2022 Antibody Screen Gel Negative Normal [facility] ([place]) Comment on above: Order Comment: SURG SHILOH 03/06/22 -AC Performed By: #### A LB, GFR, CBC, BMP, ABOG, ANSG, ADIFF, A1C, ANEU #### [place] [address] [place], [place] [address] LABORATORYOrdered By: Chely Green on 02-19-2022 ABO/Rh [...] AO Auto Heme SS LABORATORYOrdered By: Gregory Dodson on 02-19-2022 Albumin BCP dye [Mass/Vol] 3.4 [...] percentageon 2021 Bilirubin [Mass/Vol] 0.40 mg/dL 0.20-1.00 [facility] Work Phone: Comment on above: For patients on eltr ombopag therapy, use of Dimension [place] TBIL is not recommended. Cholesterol [Mass/Vol] 128 mg/dL <200 [facility] Work Phone: Comment on above: <200 mg/dL Desirable 200-240 mg/dL Borderline >240 mg/dL High Risk Protein [Mass/Vol] 6.5 g/dL 6.4-8.2 [facility] Work Phone: Triglyceride [Mass/Vol] 79 mg/dL <199 [facility] Work Phone: Comment on above: The drugs N-Acetylcy steine and Metamizole may falsely depress this assay.Serum Triglycerides Reference Interval Normal <150 mg/dL Borderline high 150 - 199 mg/dL High 200 - 499 mg/dL Very High > or = 500 mg/dL Direct bilirubinon Bilirubin.direct [Mass/Vol] 0.14 mg/dL 0.00-0.30 [facility] Work Phone: INR in Blood by Coagulation assayon 02-08-2022 INR Coag (Bld) [Relative time] 2.6 {INR} [facility] Work Phone: Laboratory - Chemistry and C hemistry - challengeon 02-08-2022 ALP [Catalytic activity/Vol] 78 U/L 45-117 [facility] Work Phone: ALT [Catalytic activity/Vol] 21 U/L 13-56 [facility] Work Phone: Globulin (S) [Mass/Vol] 3.2 g/dL 2.2-4.2 [facility] Work Phone: Laboratory - Coagulationon 0 02-08-2022 PT Coag (PPP) [Time] 27.2 s 11.7-14.9 [facility] Work Phone: Serum or plasma albumin pk urement (mass/volume)on 02-08-2022 Albumin [Mass/Vol] 3.3 g/dL 3.2-5.0 [facility] Work Phone: Serum or plasma cholesterol in HDL measurement (mass/volume)on 02-08-2022 Cholesterol in HDL [Mass/Vol] 58 mg/dL >40 [facility] Work Phone: Comment on above: The drugs N-Acetylcy steine and Metamizole may falsely depress this assay. Reference Range HDL <40 mg/dL Low HDL Cholesterol HDL >or= 60 mg/dL High HDL Cholesterol Serum or plasma cholesterol in VLDL measurement (mass/volume)on 02-08-2022 Cholesterol in VLDL [Mass/Vol] 16 mg/dL 5-40 [facility] Work Phone: Serum or plasma low density lipoprotein (LDL) cholesterol measurement (mass/volume)on 02-08-2022 Cholesterol in LDL [Mass/Vol] 54 mg/dL 0-130 [facility] Work Phone: Thin prep Papanicolaou smear with manual screeningon 02-08-2022 Thin prep Papanicolaou smear with manual screening 29 U/L 15-37 [facility] Work Phone: Laboratory - Coagulationon 0 01-29-2022 INR Coag (Bld) [Relative time] 1.9 {INR} [facility] Work Phone: Comment on above: Critical Value > 4.0 Whole blood prothrombin time on 01-29-2022 PT Coag (Bld) [Time] 22.2 s 11.9-14.4 [facility] Work Phone: Absolute lymphocyte counton 12-21-2021 Lymphocytes Auto (Unsp spec) [#/Vol] 2.18 10*3/uL 0.83-4.51 [facility] Work Phone: Basophil percentageon 2021 Basophils/100 WBC (Bld) 1.0 % 0-1 [facility] Work Phone: Bilirubin [Mass/Vol] 0.40 mg/dL 0.20-1.00 [facility] Work Phone: Comment on above: For patients on eltr ombopag therapy, use of Dimension [place] TBIL is not recommended. Chloride [Moles/Vol] 105 mmol/L 98-107 [facility] Work Phone: Eosinophils/100 WBC (Bld) 7.5 % 0-5 [facility] Work Phone: Glucose [Mass/Vol] 105 mg/dL 74-106 [facility] Work Phone: Comment on above: Fasting Glucose resu lt from 100 to 125 mg/dL suggests IMPAIRED HOMEOSTASIS per A.D.A. criteria. Neutrophils (Bld) [#/Vol] 2.6 10*3/uL 2.0-7.7 [facility] Work Phone: Neutrophils/100 WBC (Bld) 44.8 % 47-70 [facility] Work Phone: Potassium [Moles/Vol] 4.4 mmol/L 3.5-5.1 [facility] Work Phone: Comment on above: Slight Hemolysis, Re sult may be falsely increased. Protein [Mass/Vol] 6.8 g/dL 6.4-8.2 [facility] Work Phone: Sodium [Moles/Vol] 139 mmol/L 136-145 [facility] Work Phone: WBC (Bld) [#/Vol] 5.7 10*3/uL 4.4-11.0 [facility] Work Phone: Blood erythrocytes count (nu mber/volume)on 12-21-2021 RBC (Bld) [#/Vol] 3.87 10*6/uL 4.2-5.4 [facility] Work Phone: Blood hemoglobin measurement (mass/volume)on 12-21-2021 Hemoglobin (Bld) [Mass/Vol] 12.2 g/dL 12.0-15.0 [facility] Work Phone: Blood lymphocytes/100 leukoc yteson 12-21-2021 Lymphocytes/100 WBC (Bld) 38.0 % 19-41 [facility] Work Phone: Blood monocytes/100 leukocyt eson 12-21-2021 Monocytes/100 WBC (Bld) 8.2 % 0-10 [facility] Work Phone: Blood platelet mean volumeon 12-21-2021 Platelet mean volume (Bld) [Entitic vol] 8.5 fL 6.2-12.0 [facility] Work Phone: Determination of erythrocyte mean corpuscular volume (MCV)on 12-21-2021 MCV (RBC) [Entitic vol] 98.2 fL 81-99 [facility] Work Phone: Hematocrit Auto (Bld) [Volum e fraction]on 12-21-2021 Hematocrit (Bld) [Volume fraction] 38.0 % 37-47 [facility] Work Phone: Laboratory - Chemistry and C hemistry - challengeon 12-21-2021 ALP [Catalytic activity/Vol] 72 U/L 45-117 [facility] Work Phone: ALT [Catalytic activity/Vol] 24 U/L 13-56 [facility] Work Phone: CO2 [Moles/Vol] 29.0 mmol/L 21.0-32.0 [facility] Work Phone: Globulin (S) [Mass/Vol] 3.5 g/dL 2.2-4.2 [facility] Work Phone: Urea nitrogen/Creatinine [Mass ratio] 12.0 mg/mg 10-20 [facility] Work Phone: Laboratory - Hematology and Cell countson 12-21-2021 Erythrocyte distribution width (RBC) [Entitic vol] 45.6 fL 35.1-43.9 [facility] Work Phone: Erythrocyte distribution width (RBC) [Ratio] 12.8 % 11.6-14.6 [facility] Work Phone: Immature granulocytes/100 WBC (Bld) 0.500 % 0.0-0.9 [facility] Work Phone: Comment on above: IG% - Immature Granu locytes (promyelocytes, myelocytes and metamyelocytes) > 1% indicates that a LEFT SHIFT is Present. MCH (RBC) [Entitic mass] 31.5 pg 27.0-32.0 [facility] Work Phone: Nucleated RBC/100 WBC (Bld) [Ratio] 0 % 0-5 [facility] Work Phone: MCHC Auto (RBC) [Mass/Vol]on 12-21-2021 MCHC (RBC) [Mass/Vol] 32.1 g/dL 32-36 [facility] Work Phone: No Panel Informationon 12-21 Estimated Creatinine Clearance Calc 26.64 ml/min [facility] Work Phone: Estimated GFR (MDRD) Amer 53 mL/min >60 [facility] Work Phone: Comment on above: GFR Calc Estimated GFR (MDRD) Non-Af Amer 44 mL/min >60 [facility] Work Phone: Comment on above: Non- GFR Calc Platelets bldon 12-21-2021 Platelets (Bld) [#/Vol] 231 10*3/uL 150-450 [facility] Work Phone: Serum or plasma albumin pk urement (mass/volume)on 12-21-2021 Albumin [Mass/Vol] 3.3 g/dL 3.2-5.0 [facility] Work Phone: Serum or plasma albumin/glob ulin mass ratioon 12-21-2021 Albumin/Globulin [Mass ratio] 0.9 {ratio} 0.9-2.4 [facility] Work Phone: Serum or plasma calcium pk urement (mass/volume)on 12-21-2021 Calcium [Mass/Vol] 8.7 mg/dL 8.5-10.1 [facility] Work Phone: Serum or plasma creatinine m easurement (mass/volume)on 12-21-2021 Creatinine [Mass/Vol] 1.25 mg/dL 0.55-1.02 [facility] Work Phone: Comment on above: The validity of the calculated GFR & GFRAA in patients over 70 years has not been determined. Clinical correlation is essential. Serum or plasma urea nitroge n measurement (mass/volume)on 12-21-2021 Urea nitrogen [Mass/Vol] 15 mg/dL 7-18 [facility] Work Phone: Thin prep Papanicolaou smear with manual screeningon 12-21-2021 Thin prep Papanicolaou smear with manual screening 31 U/L 15-37 [facility] Work Phone: Comment on above: Slight Hemolysis, Re sult may be falsely increased. Thin prep Papanicolaou smear with manual screening 5 5-15 [facility] Work Phone: Thin prep Papanicolaou smear with manual screening 227 U/L 84-246 [facility] Work Phone: Comment on above: Slight Hemolysis, Re sult may be falsely increased. Laboratory - Coagulationon 1 01-23-2021 INR Coag (Bld) [Relative time] 2.5 {INR} [facility] Work Phone: Comment on above: Critical Value > 4.0 Whole blood prothrombin time on 11-22-2021 PT Coag (Bld) [Time] 28.1 s 11.9-14.4 [facility] Work Phone: Laboratory - Hematology and Cell countson 06-09-2019 Erythrocyte distribution width (RBC) [Ratio] 13.4 % 11.6-14.6 [facility] No Panel Informationon 06-09 Red Cell Distribution Width Diff 45.8 fl High 35.1-43.9 [facility] Total cell counton 9 Cells counted Molgen (Bld/Tiss) [#] Not Reportable [facility] Influenza virus A and B and SARS-CoV-2 (COVID-19) Ag panel - Upper respiratory specim SARS-CoV-2 (COVID-19) RNA CHRISTIANE+probe Ql (Resp) [facility] Work Phone: No Panel Information SARS-CoV-2 & FLU Antigen (Rapid) [facility] Work Phone: Vital Signs Date Time Vital Sign Value Performing Clinician Faci lity 09-14-2025 14:14-0400 Body height 147.[address] Daniel Lai MD Work Phone: [facility] 09-14-2025 14:14-0400 Body mass index (BMI) [Ratio] 40.5 kg/m2 Dr. Daniel Lai MD Work Phone: [facility] 09-14-2025 14:14-0400 Body temperature 98.6 [degF] Dr. Daniel Lai MD Work Phone: [facility] 09-14-2025 14:14-0400 Body weight 88.[address] Daniel Lai MD Work Phone: [facility] 09-14-2025 14:14-0400 Diastolic blood pressure 69 mm[Hg] Dr. Daniel Lai MD Work Phone: [facility] 09-14-2025 14:14-0400 Heart rate 74 /min Dr. Daniel Lai MD Work Phone: [facility] 09-14-2025 14:14-0400 Respiratory rate 18 /min Dr. Daniel Lai MD Work Phone: [facility] 09-14-2025 14:14-0400 SaO2% (BldA) [Mass fraction] 96 % Dr. Daniel Lai MD Work Phone: [facility] 09-14-2025 14:14-0400 Systolic blood pressure 109 mm[Hg] Dr. Daniel Lai MD Work Phone: [facility] 09-01-2025 09:16-0400 Body mass index (BMI) [Ratio] 39.9 kg/m2 Dr. Daniel Lai MD Work Phone: [facility] 09-01-2025 09:16-0400 Body temperature 97.3 [degF] Dr. Daniel Lai MD Work Phone: [facility] 09-01-2025 09:16-0400 Body weight 86.[address] Daniel Lai MD Work Phone: [facility] 09-01-2025 09:16-0400 Diastolic blood pressure 73 mm[Hg] Dr. Daniel Lai MD Work Phone: [facility] 09-01-2025 09:16-0400 Heart rate 72 /min Dr. Daniel Lai MD Work Phone: [facility] 09-01-2025 09:16-0400 Respiratory rate 18 /min Dr. Daniel Lai MD Work Phone: 3(880)647-072874 [place] [address] 09-01-2025 09:16-0400 SaO2% (BldA) [Mass fraction] 94 % Dr. Daniel Lai MD Work Phone: 3(833)563-187074 [place] [address] 09-01-2025 09:16-0400 Systolic blood pressure 124 mm[Hg] Dr. Daniel Lai MD Work Phone: 8(241)898-189474 [place] [address] 08-16-2025 09:18-0400 Body height 147.[address] Daniel Lai MD Work Phone: 0(067)938-930674 [place] [address] 08-16-2025 09:18-0400 Diastolic blood pressure 70 mm[Hg] Dr. Daniel Lai MD Work Phone: 0(366)881-815774 [place] [address] 08-16-2025 09:18-0400 Heart rate 73 /min Dr. Daniel Lai MD Work Phone: 3(902)030-090374 [place] [address] 08-16-2025 09:18-0400 Systolic blood pressure 118 mm[Hg] Dr. Daniel Lai MD Work Phone: 5(608)729-607374 [place] [address] 06-07-2025 14:38-0400 Body height 147.[address] Daniel Lai MD Work Phone: 4(044)725-942774 [place] [address] 06-07-2025 14:36-0400 Body mass index (BMI) [Ratio] 41.1 kg/m2 Dr. Daniel Lai MD Work Phone: 5(115)519-239674 [place] [address] 06-07-2025 14:36-0400 Body weight 89.[address] Daniel Lai MD Work Phone: 1(919)464-701474 [place] [address] 06-07-2025 14:36-0400 Diastolic blood pressure 81 mm[Hg] Dr. Daniel Lai MD Work Phone: 9(419)399-786874 [place] [address] 06-07-2025 14:36-0400 Systolic blood pressure 116 mm[Hg] Dr. Daniel Lai MD Work Phone: 5(815)729-037974 [place] [address] 05-25-2025 22:33-0400 Body temperature 97.9 [degF] Dr. Daniel Lai MD Work Phone: [facility] 05-25-2025 22:33-0400 Diastolic blood pressure 65 mm[Hg] Dr. Daniel Lai MD Work Phone: [facility] 05-25-2025 22:33-0400 Heart rate 60 /min Dr. Daniel Lai MD Work Phone: [facility] 05-25-2025 22:33-0400 Respiratory rate 16 /min Dr. Daniel Lai MD Work Phone: 4(371)339-545906 [address] 05-25-2025 22:33-0400 SaO2% (BldA) [Mass fraction] 92 % Dr. Daniel Lai MD Work Phone: 5(238)119-119806 [address] 05-25-2025 22:33-0400 Systolic blood pressure 93 mm[Hg] Dr. Daniel Lai MD Work Phone: 4(808)042-490348 [place] [address] 05-25-2025 15:30-0400 Body temperature 98.4 [degF] Dr. Daniel Lai MD Work Phone: 5(662)857-680406 [address] 05-25-2025 15:30-0400 Diastolic blood pressure 71 mm[Hg] Dr. Daniel Lai MD Work Phone: 5(677)221-796606 [address] 05-25-2025 15:30-0400 Heart rate 54 /min Dr. Daniel Lai MD Work Phone: [facility] 05-25-2025 15:30-0400 Respiratory rate 16 /min Dr. Daniel Lai MD Work Phone: [facility] 05-25-2025 15:30-0400 SaO2% (BldA) [Mass fraction] 95 % Dr. Daniel Lai MD Work Phone: [facility] 05-25-2025 15:30-0400 Systolic blood pressure 124 mm[Hg] Dr. Daniel Lai MD Work Phone: 9(681)557-712774 [place] [address] 05-25-2025 12:03-0400 Body height 147.[address] Daniel Lai MD Work Phone: 9(705)323-074974 [place] [address] 05-25-2025 12:03-0400 Body mass index (BMI) [Ratio] 41.3 kg/m2 Dr. Daniel Lai MD Work Phone: 1(611)877-369574 [place] [address] 05-25-2025 12:03-0400 Body temperature 98.2 [degF] Dr. Daniel Lai MD Work Phone: 2(312)161-752074 [place] [address] 05-25-2025 12:03-0400 Body weight 89.[address] Daniel Lai MD Work Phone: 2(863)827-534974 [place] [address] 05-25-2025 12:03-0400 Diastolic blood pressure 85 mm[Hg] Dr. Daniel Lai MD Work Phone: 3(765)127-862674 [place] [address] 05-25-2025 12:03-0400 Heart rate 65 /min Dr. Daniel Lai MD Work Phone: 9(731)825-607974 [place] [address] 05-25-2025 12:03-0400 Respiratory rate 18 /min Dr. Daniel Lai MD Work Phone: 1(254)601-763774 [place] [address] 05-25-2025 12:03-0400 SaO2% (BldA) [Mass fraction] 96 % Dr. Daniel Lai MD Work Phone: 2(326)779-456874 [place] [address] 05-25-2025 12:03-0400 Systolic blood pressure 145 mm[Hg] Dr. Daniel Lai MD Work Phone: 9(650)405-245174 [place] [address] 05-18-2025 12:04-0400 Heart rate 74 /min Dr. Daniel Lai MD Work Phone: 9(666)620-526474 [place] [address] 05-18-2025 12:04-0400 SaO2% (BldA) [Mass fraction] 95 % Dr. Daniel Lai MD Work Phone: 4(392)476-910174 [place] [address] 05-18-2025 10:54-0400 Body height 147.[address] Daniel Lia MD Work Phone: [facility] 05-18-2025 10:54-0400 Body mass index (BMI) [Ratio] 40.7 kg/m2 Dr. Daniel Lai MD Work Phone: [facility] 05-18-2025 10:54-0400 Body weight 88.[address] Daniel Lai MD Work Phone: 8(419)063-743248 [place] [address] 05-18-2025 10:54-0400 Diastolic blood pressure 84 mm[Hg] Dr. Daniel Lai MD Work Phone: 0(709)672-710874 [place] [address] 05-18-2025 10:54-0400 Heart rate 65 /min Dr. Daniel Lai MD Work Phone: 3(387)348-238074 [place] [address] 05-18-2025 10:54-0400 Respiratory rate 18 /min Dr. Daniel Lai MD Work Phone: 1(352)580-475148 [place] [address] 05-18-2025 10:54-0400 Systolic blood pressure 138 mm[Hg] Dr. Daniel Lai MD Work Phone: 3(776)611-278306 [address] 05-01-2025 18:09-0400 Body temperature 98.5 [degF] Dr. Daniel Lai MD Work Phone: [facility] 05-01-2025 18:09-0400 Diastolic blood pressure 76 mm[Hg] Dr. Daniel Lai MD Work Phone: [facility] 05-01-2025 18:09-0400 Heart rate 64 /min Dr. Daniel Lai MD Work Phone: [facility] 05-01-2025 18:09-0400 Respiratory rate 16 /min Dr. Daniel Lai MD Work Phone: [facility] 05-01-2025 18:09-0400 SaO2% (BldA) [Mass fraction] 96 % Dr. Daniel Lai MD Work Phone: [facility] 05-01-2025 18:09-0400 Systolic blood pressure 138 mm[Hg] Dr. Daniel Lai MD Work Phone: 1(382)890-087448 [place] [address] 05-01-2025 14:31-0400 Body height 147.[address] Daniel Lai MD Work Phone: 3(114)754-874248 [place] [address] 05-01-2025 14:31-0400 Body mass index (BMI) [Ratio] 40.3 kg/m2 Dr. Daniel Lai MD Work Phone: 2(390)192-919948 [place] [address] 05-01-2025 14:31-0400 Body weight 87.[address] Daniel Lai MD Work Phone: 5(472)497-421574 [place] [address] 04-30-2025 13:50-0400 Body height 147.[address] Daniel Lai MD Work Phone: 2(930)694-399674 [place] [address] 04-30-2025 13:50-0400 Body mass index (BMI) [Ratio] 41.1 kg/m2 Dr. Daniel Lai MD Work Phone: 8(117)067-864048 [place] [address] 04-30-2025 13:50-0400 Body weight 89.[address] Daniel Lai MD Work Phone: 6(282)864-337774 [place] [address] 04-30-2025 13:50-0400 Diastolic blood pressure 69 mm[Hg] Dr. Daniel Lai MD Work Phone: 5(661)709-349248 [place] [address] 04-30-2025 13:50-0400 Systolic blood pressure 101 mm[Hg] Dr. Daniel Lai MD Work Phone: 2(739)734-937948 [place] [address] 04-06-2025 08:35-0400 Body height 147.[address] Daniel Lai MD Work Phone: 5(334)284-957074 [place] [address] 04-06-2025 08:35-0400 Body mass index (BMI) [Ratio] 41.5 kg/m2 Dr. Daniel Lai MD Work Phone: 3(380)073-728148 [place] [address] 04-06-2025 08:35-0400 Body weight 90.[address] Daniel Lai MD Work Phone: [facility] 04-06-2025 08:35-0400 Diastolic blood pressure 71 mm[Hg] Dr. Daniel Lia MD Work Phone: 3(090)975-106374 [place] [address] 04-06-2025 08:35-0400 Systolic blood pressure 104 mm[Hg] Dr. Daniel Lai MD Work Phone: 7(242)337-246174 [place] [address] 03-22-2025 15:26-0400 Body temperature 97.6 [degF] Dr. Daniel Lai MD Work Phone: 5(818)809-619674 [place] [address] 03-22-2025 15:26-0400 Diastolic blood pressure 54 mm[Hg] Dr. Daniel Lai MD Work Phone: 4(031)338-351074 [place] [address] 03-22-2025 15:26-0400 Heart rate 66 /min Dr. Daniel Lai MD Work Phone: 9(319)296-180874 [place] [address] 03-22-2025 15:26-0400 Respiratory rate 16 /min Dr. Daniel Lai MD Work Phone: 4(684)120-367874 [place] [address] 03-22-2025 15:26-0400 SaO2% (BldA) [Mass fraction] 95 % Dr. Daniel Lai MD Work Phone: 2(882)419-582274 [place] [address] 03-22-2025 15:26-0400 Systolic blood pressure 112 mm[Hg] Dr. Daniel Lai MD Work Phone: 5(031)520-905174 [place] [address] 03-22-2025 14:34-0400 Body mass index (BMI) [Ratio] 38.9 kg/m2 Dr. Daniel Lai MD Work Phone: 7(634)294-624274 [place] [address] 03-22-2025 14:34-0400 Body weight 90.[address] Daniel Lai MD Work Phone: 1(356)349-654974 [place] [address] 03-22-2025 13:36-0400 Body mass index (BMI) [Ratio] 41.5 kg/m2 Dr. Daniel Lai MD Work Phone: 9(698)021-651874 [place] [address] 03-22-2025 13:36-0400 Body temperature 98.3 [degF] Dr. Daniel Lai MD Work Phone: 9(069)260-705548 [place] [address] 03-22-2025 13:36-0400 Body weight 90.[address] Daniel Lai MD Work Phone: 9(339)817-092074 [place] [address] 03-22-2025 13:36-0400 Diastolic blood pressure 80 mm[Hg] Dr. Daniel Lai MD Work Phone: 0(790)029-947274 [place] [address] 03-22-2025 13:36-0400 Heart rate 64 /min Dr. Daniel Lai MD Work Phone: 3(185)385-032474 [place] [address] 03-22-2025 13:36-0400 Respiratory rate 18 /min Dr. Daniel Lai MD Work Phone: 8(487)041-812274 [place] [address] 03-22-2025 13:36-0400 SaO2% (BldA) [Mass fraction] 95 % Dr. Daniel Lai MD Work Phone: 3(621)240-291648 [place] [address] 03-22-2025 13:36-0400 Systolic blood pressure 137 mm[Hg] Dr. Daniel Lai MD Work Phone: 8(692)648-470774 [place] [address] 03-01-2025 23:08-0400 Body mass index (BMI) [Ratio] 43.7 kg/m2 Dr. Daniel Lai MD Work Phone: 6(725)587-752574 [place] [address] 02-26-2025 08:22-0400 Body mass index (BMI) [Ratio] 42 kg/m2 Dr. Daniel Lai MD Work Phone: 8(551)505-014374 [place] [address] 02-26-2025 08:22-0400 Body temperature 97.4 [degF] Dr. Daniel Lai MD Work Phone: 2(579)426-892174 [place] [address] 02-26-2025 08:22-0400 Body weight 91.[address] Daniel Lai MD Work Phone: 7(801)029-364274 [place] [address] 02-26-2025 08:22-0400 Diastolic blood pressure 72 mm[Hg] Dr. Daniel Lai MD Work Phone: [facility] 02-26-2025 08:22-0400 Heart rate 70 /min Dr. Daniel Lai MD Work Phone: [facility] 02-26-2025 08:22-0400 Respiratory rate 18 /min Dr. Daniel Lai MD Work Phone: [facility] 02-26-2025 08:22-0400 SaO2% (BldA) [Mass fraction] 95 % Dr. Daniel Lai MD Work Phone: [facility] 02-26-2025 08:22-0400 Systolic blood pressure 110 mm[Hg] Dr. Daniel Lai MD Work Phone: [facility] 11-01-2024 02:03-0500 Body mass index (BMI) [Ratio] 43.7 kg/m2 Dr. Daniel Lai MD Work Phone: [facility] 03-19-2024 14:36-0400 Body temperature 97.1 [degF] Dr. Daniel Lai Work Phone: [facility] 03-19-2024 14:36-0400 Diastolic blood pressure 74 mm[Hg] Dr. Daniel Lai Work Phone: [facility] 03-19-2024 14:36-0400 Heart rate 64 /min Dr. Daniel Lai Work Phone: [facility] 03-19-2024 14:36-0400 Respiratory rate 16 /min Dr. Daniel Lai Work Phone: [facility] 03-19-2024 14:36-0400 SaO2% (BldA) [Mass fraction] 96 % Dr. Daniel Lai Work Phone: [facility] 03-19-2024 14:36-0400 Systolic blood pressure 141 mm[Hg] Dr. Daniel Lai Work Phone: 7(398)692-701148 [place] [address] 03-19-2024 14:07-0400 Body mass index (BMI) [Ratio] 41.3 kg/m2 Dr. Daniel Lai Work Phone: [facility] 03-19-2024 14:07-0400 Body weight 95.[address] Daniel Lai Work Phone: 4(897)839-139074 [place] [address] 03-16-2024 11:32-0400 Body mass index (BMI) [Ratio] 44.1 kg/m2 Dr. Daniel Lai Work Phone: 7(134)755-205006 [address] 03-16-2024 11:32-0400 Body temperature 98.4 [degF] Dr. Daniel Lai Work Phone: 6(282)058-534074 [place] [address] 03-16-2024 11:32-0400 Body weight 95.[address] Daniel Lai Work Phone: 8(017)740-262774 [place] [address] 03-16-2024 11:32-0400 Diastolic blood pressure 81 mm[Hg] Dr. Daniel Lai Work Phone: 4(671)120-471674 [place] [address] 03-16-2024 11:32-0400 Heart rate 70 /min Dr. Daniel Lai Work Phone: 7(171)010-281974 [place] [address] 03-16-2024 11:32-0400 Respiratory rate 18 /min Dr. Daniel Lai Work Phone: 3(260)305-042374 [place] [address] 03-16-2024 11:32-0400 SaO2% (BldA) [Mass fraction] 96 % Dr. Daniel Lai Work Phone: 5(185)342-548648 [place] [address] 03-16-2024 11:32-0400 Systolic blood pressure 129 mm[Hg] Dr. Daniel Lai Work Phone: 9(641)388-597374 [place] [address] 12-01-2023 23:27-0500 Body mass index (BMI) [Ratio] 43.7 kg/m2 Dr. Daniel Lai Work Phone: 0(876)625-511574 [place] [address] 10-18-2023 09:55-0500 Body height 147.[address] J Luis Lai Work Phone: [facility] 10-18-2023 09:55-0500 Body mass index (BMI) [Ratio] 46.1 kg/m2 Dr. J Luis Lai Work Phone: [facility] 10-18-2023 09:55-0500 Body weight 100.[address] J Luis aLi Work Phone: [facility] 10-18-2023 09:55-0500 Diastolic blood pressure 73 mm[Hg] Dr. J Luis Lai Work Phone: [facility] 10-18-2023 09:55-0500 Heart rate 84 /min Dr. J Luis Lai Work Phone: [facility] 10-18-2023 09:55-0500 Respiratory rate 20 /min Dr. J Luis Lai Work Phone: [facility] 10-18-2023 09:55-0500 SaO2% (BldA) [Mass fraction] 96 % Dr. J Luis Lai Work Phone: [facility] 10-18-2023 09:55-0500 Systolic blood pressure 120 mm[Hg] Dr. J Luis Lai Work Phone: [facility] 10-01-2023 23:05-0400 Body mass index (BMI) [Ratio] 43.7 kg/m2 Dr. J Luis Lai Work Phone: [facility] 09-26-2023 08:33-0400 Body height 147.[address] J Luis Lai Work Phone: [facility] 09-26-2023 08:33-0400 Body mass index (BMI) [Ratio] 45.2 kg/m2 Dr. J Luis Lai Work Phone: [facility] 09-26-2023 08:33-0400 Body temperature 98.1 [degF] Dr. J Luis Lai Work Phone: [facility] 09-26-2023 08:33-0400 Body weight 98.[address] J Luis Lai Work Phone: [facility] 09-26-2023 08:33-0400 Diastolic blood pressure 73 mm[Hg] Dr. J Luis Lai Work Phone: [facility] 09-26-2023 08:33-0400 Heart rate 79 /min Dr. J Luis Lai Work Phone: [facility] 09-26-2023 08:33-0400 Respiratory rate 17 /min Dr. J Luis Lai Work Phone: [facility] 09-26-2023 08:33-0400 SaO2% (BldA) [Mass fraction] 95 % Dr. J Luis Lai Work Phone: [facility] 09-26-2023 08:33-0400 Systolic blood pressure 147 mm[Hg] Dr. J Luis Lai Work Phone: [facility] 09-01-2023 04:55-0400 Body mass index (BMI) [Ratio] 43.7 kg/m2 Dr. J Luis Lai Work Phone: [facility] 08-20-2023 11:08-0400 Body height 152.4 cm [facility] 08-20-2023 11:08-0400 Body mass index (BMI) [Ratio] 42 kg/m2 [facility] 08-20-2023 11:08-0400 Body weight 97.52 kg [facility] 08-02-2023 01:20-0400 Body mass index (BMI) [Ratio] 43.7 kg/m2 [facility] 06-01-2023 02:17-0400 Body mass index (BMI) [Ratio] 43.7 kg/m2 Dr. J Luis Lai Work Phone: [facility] 05-02-2023 08:00-0400 Body mass index (BMI) [Ratio] 43.7 kg/m2 Dr. J Luis Lai Work Phone: [facility] 04-18-2023 05:51-0400 Body height 147.[address] J Luis Lai Work Phone: [facility] 04-18-2023 05:51-0400 Body mass index (BMI) [Ratio] 44.9 kg/m2 Dr. J Luis Lai Work Phone: [facility] 04-18-2023 05:51-0400 Body temperature 98.2 [degF] Dr. J Luis Lai Work Phone: [facility] 04-18-2023 05:51-0400 Body weight 97.[address] J Luis Lai Work Phone: [facility] 04-18-2023 05:51-0400 Diastolic blood pressure 83 mm[Hg] Dr. J Luis Lai Work Phone: 7(929)470-852448 [place] [address] 04-18-2023 05:51-0400 Heart rate 71 /min Dr. J Luis Lai Work Phone: [facility] 04-18-2023 05:51-0400 Inhaled oxygen flow rate 2 L/min Dr. J Luis Lai Work Phone: [facility] 04-18-2023 05:51-0400 Respiratory rate 18 /min Dr. J Luis Lai Work Phone: [facility] 04-18-2023 05:51-0400 SaO2% (BldA) [Mass fraction] 98 % Dr. J Luis Lai Work Phone: [facility] 04-18-2023 05:51-0400 Systolic blood pressure 150 mm[Hg] Dr. J Luis Lai Work Phone: [facility] 04-16-2023 10:40-0400 Body mass index (BMI) [Ratio] 45.6 kg/m2 Dr. J Luis Lai Work Phone: [facility] 04-16-2023 10:40-0400 Body weight 98.[address] J Luis Lai Work Phone: [facility] 04-16-2023 10:40-0400 Diastolic blood pressure 89 mm[Hg] Dr. J Luis Lai Work Phone: [facility] 04-16-2023 10:40-0400 Heart rate 73 /min Dr. J Luis Lai Work Phone: [facility] 04-16-2023 10:40-0400 Respiratory rate 18 /min Dr. J Luis Lai Work Phone: [facility] 04-16-2023 10:40-0400 SaO2% (BldA) [Mass fraction] 97 % Dr. J Luis Lai Work Phone: [facility] 04-16-2023 10:40-0400 Systolic blood pressure 136 mm[Hg] Dr. J Luis Lai Work Phone: [facility] 11-01-2022 02:19-0500 Body mass index (BMI) [Ratio] 43.7 kg/m2 Dr. J Luis Lai Work Phone: [facility] 09-17-2022 09:58-0400 Body height 147.[address] J Luis Lai Work Phone: [facility] Work Phone: 09-17-2022 09:58-0400 Body mass index (BMI) [Ratio] 45.3 kg/m2 Dr. J Luis Lai Work Phone: [facility] Work Phone: 09-17-2022 09:58-0400 Body temperature 97 [degF] Dr. J Luis Lai Work Phone: [facility] Work Phone: 09-17-2022 09:58-0400 Body weight 98.[address] J Luis Lai Work Phone: [facility] Work Phone: 09-17-2022 09:58-0400 Diastolic blood pressure 86 mm[Hg] Dr. J Luis Lai Work Phone: [facility] Work Phone: 09-17-2022 09:58-0400 Heart rate 72 /min Dr. J Luis Lai Work Phone: [facility] Work Phone: 09-17-2022 09:58-0400 Respiratory rate 18 /min Dr. J Luis Lai Work Phone: [facility] Work Phone: 09-17-2022 09:58-0400 SaO2% (BldA) [Mass fraction] 96 % Dr. J Luis Lai Work Phone: [facility] Work Phone: 09-17-2022 09:58-0400 Systolic blood pressure 122 mm[Hg] Dr. J Luis Lai Work Phone: [facility] Work Phone: 09-07-2022 19:19-0400 Diastolic blood pressure 81 mm[Hg] Dr. J Luis Lai Work Phone: [facility] Work Phone: 09-07-2022 19:19-0400 Heart rate 62 /min Dr. J Luis Lai Work Phone: [facility] Work Phone: 09-07-2022 19:19-0400 Respiratory rate 14 /min Dr. J Luis Lai Work Phone: [facility] Work Phone: 09-07-2022 19:19-0400 SaO2% (BldA) [Mass fraction] 96 % Dr. J Luis Lai Work Phone: [facility] Work Phone: 09-07-2022 19:19-0400 Systolic blood pressure 154 mm[Hg] Dr. J Luis Lai Work Phone: [facility] Work Phone: 09-07-2022 16:32-0400 Body temperature 96.5 [degF] Dr. J Luis Lai Work Phone: [facility] Work Phone: 09-07-2022 16:28-0400 Body height 147.[address] J Luis Lai Work Phone: [facility] Work Phone: 09-07-2022 16:28-0400 Body mass index (BMI) [Ratio] 45.1 kg/m2 Dr. J Luis Lai Work Phone: [facility] Work Phone: 09-07-2022 16:28-0400 Body weight 97.[address] J Luis Lai Work Phone: [facility] Work Phone: 08-14-2022 08:50-0400 Body mass index (BMI) [Ratio] 43 kg/m2 Dr. J Luis Lai Work Phone: [facility] Work Phone: 08-14-2022 08:50-0400 Body weight 96.[address] J Luis Lai Work Phone: [facility] Work Phone: 08-14-2022 08:50-0400 Diastolic blood pressure 85 mm[Hg] Dr. J Luis Lai Work Phone: [facility] Work Phone: 08-14-2022 08:50-0400 Heart rate 78 /min Dr. J Luis Lai Work Phone: [facility] Work Phone: 08-14-2022 08:50-0400 Respiratory rate 16 /min Dr. J Luis Lai Work Phone: [facility] Work Phone: 08-14-2022 08:50-0400 SaO2% (BldA) [Mass fraction] 96 % Dr. J Luis Lai Work Phone: [facility] Work Phone: 08-14-2022 08:50-0400 Systolic blood pressure 143 mm[Hg] Dr. J Luis Lai Work Phone: [facility] Work Phone: 08-02-2022 00:56-0400 Body mass index (BMI) [Ratio] 43.7 kg/m2 Dr. J Luis Lai Work Phone: [facility] Work Phone: 07-23-2022 06:26-0400 Body height 149.[address] J Luis Lai Work Phone: [facility] Work Phone: 07-23-2022 06:26-0400 Body mass index (BMI) [Ratio] 43 kg/m2 Dr. J Luis Lai Work Phone: [facility] Work Phone: 07-23-2022 06:26-0400 Body temperature 97.3 [degF] Dr. J Luis Lai Work Phone: [facility] Work Phone: 07-23-2022 06:26-0400 Body weight 96.[address] J Luis Lai Work Phone: [facility] Work Phone: 07-23-2022 06:26-0400 Diastolic blood pressure 75 mm[Hg] Dr. J Luis Lai Work Phone: [facility] Work Phone: 07-23-2022 06:26-0400 Heart rate 71 /min Dr. J Luis Lai Work Phone: [facility] Work Phone: 07-23-2022 06:26-0400 Respiratory rate 18 /min Dr. J Luis Lai Work Phone: [facility] Work Phone: 07-23-2022 06:26-0400 SaO2% (BldA) [Mass fraction] 99 % Dr. J Luis Lai Work Phone: [facility] Work Phone: 07-23-2022 06:26-0400 Systolic blood pressure 134 mm[Hg] Dr. J Luis Lai Work Phone: [facility] Work Phone: 07-01-2022 03:22-0400 Body mass index (BMI) [Ratio] 43.7 kg/m2 Dr. J Luis Lai Work Phone: [facility] Work Phone: 06-20-2022 11:22-0400 Body height 149.[address] J Luis Lai Work Phone: [facility] Work Phone: 06-20-2022 11:16-0400 Body mass index (BMI) [Ratio] 43.2 kg/m2 Dr. J Luis Lai Work Phone: [facility] Work Phone: 06-20-2022 11:16-0400 Body temperature 98.4 [degF] Dr. J Luis Lai Work Phone: [facility] Work Phone: 06-20-2022 11:16-0400 Body weight 97.[address] J Luis Lai Work Phone: [facility] Work Phone: 06-20-2022 11:16-0400 Diastolic blood pressure 87 mm[Hg] Dr. J Luis Lai Work Phone: [facility] Work Phone: 06-20-2022 11:16-0400 Heart rate 68 /min Dr. J Luis Lai Work Phone: [facility] Work Phone: 06-20-2022 11:16-0400 Respiratory rate 15 /min Dr. J Luis Lai Work Phone: [facility] Work Phone: 06-20-2022 11:16-0400 SaO2% (BldA) [Mass fraction] 97 % Dr. J Luis Lai Work Phone: [facility] Work Phone: 06-20-2022 11:16-0400 Systolic blood pressure 164 mm[Hg] Dr. J Luis Lai Work Phone: [facility] Work Phone: 05-10-2022 11:36-0400 Body height 149.[address] J Luis Lai Work Phone: [facility] Work Phone: 05-10-2022 11:36-0400 Body weight 92.[address] J Luis Lai Work Phone: [facility] Work Phone: 05-10-2022 11:36-0400 Heart rate 74 /min Dr. J Luis Lai Work Phone: [facility] Work Phone: 05-10-2022 11:36-0400 SaO2% (BldA) [Mass fraction] 95 % Dr. J Luis Lai Work Phone: [facility] Work Phone: 05-01-2022 21:41-0400 Body mass index (BMI) [Ratio] 43.7 kg/m2 Dr. J Luis Lai Work Phone: [facility] Work Phone: 04-24-2022 12:32-0400 Body mass index (BMI) [Ratio] 42.6 kg/m2 Dr. J Luis Lai Work Phone: [facility] Work Phone: 04-24-2022 12:32-0400 Body temperature 97.8 [degF] Dr. J Luis Lai Work Phone: [facility] Work Phone: 04-24-2022 12:32-0400 Body weight 95.[address] J Luis Lai Work Phone: [facility] Work Phone: 04-24-2022 12:32-0400 Diastolic blood pressure 84 mm[Hg] Dr. J Luis Lai Work Phone: [facility] Work Phone: 04-24-2022 12:32-0400 Heart rate 75 /min Dr. J Luis Lai Work Phone: [facility] Work Phone: 04-24-2022 12:32-0400 Respiratory rate 17 /min Dr. J Luis Lai Work Phone: [facility] Work Phone: 04-24-2022 12:32-0400 SaO2% (BldA) [Mass fraction] 97 % Dr. J Luis Lai Work Phone: [facility] Work Phone: 04-24-2022 12:32-0400 Systolic blood pressure 138 mm[Hg] Dr. J Luis Lai Work Phone: [facility] Work Phone: 04-24-2022 12:32-0400 Body height 149.[address] J Luis Lai Work Phone: [facility] Work Phone: 04-24-2022 12:32-0400 Body mass index (BMI) [Ratio] 42.6 kg/m2 Dr. J Luis Lai Work Phone: [facility] Work Phone: 04-24-2022 12:32-0400 Body temperature 97.8 [degF] Dr. J Luis Lai Work Phone: [facility] Work Phone: 04-24-2022 12:32-0400 Body weight 95.[address] J Luis Lai Work Phone: [facility] Work Phone: 04-24-2022 12:32-0400 Diastolic blood pressure 84 mm[Hg] Dr. J Luis Lai Work Phone: [facility] Work Phone: 04-24-2022 12:32-0400 Heart rate 75 /min Dr. J Luis Lai Work Phone: [facility] Work Phone: 04-24-2022 12:32-0400 Respiratory rate 17 /min Dr. J Luis Lai Work Phone: [facility] Work Phone: 04-24-2022 12:32-0400 SaO2% (BldA) [Mass fraction] 97 % Dr. J Luis Lai Work Phone: [facility] Work Phone: 04-24-2022 12:32-0400 Systolic blood pressure 138 mm[Hg] Dr. J Luis Lai Work Phone: [facility] Work Phone: 04-01-2022 05:23-0400 Body mass index (BMI) [Ratio] 43.7 kg/m2 Dr. J Luis Lai Work Phone: [facility] Work Phone: 03-07-2022 13:14-0400 Body temperature 98.24 [degF] DR SANTHOSH MCMANUS MD [facility] 03-07-2022 13:14-0400 Diastolic blood pressure 74 mm[Hg] DR SANTHOSH MCMANUS MD [facility] 03-07-2022 13:14-0400 Heart rate 70 /min DR SANTHOSH MCMANUS MD [facility] 03-07-2022 13:14-0400 Respiratory rate 18 /min DR SANTHOSH MCMANUS MD [facility] 03-07-2022 13:14-0400 Systolic blood pressure 128 mm[Hg] DR SANTHOSH MCMANUS MD [facility] 03-07-2022 07:57-0400 Body temperature 97.88 [degF] DR SANTHOSH MCMANUS MD [facility] 03-07-2022 07:57-0400 Diastolic blood pressure 72 mm[Hg] DR SANTHOSH MCMANUS MD [facility] 03-07-2022 07:57-0400 Heart rate 72 /min DR SANTHOSH MCMANUS MD [facility] 03-07-2022 07:57-0400 Reason For Taking VItal Signs DR SANTHOSH MCMANUS MD [facility] 03-07-2022 07:57-0400 Respiratory rate 16 /min DR SANTHOSH MCMANUS MD [facility] 03-07-2022 07:57-0400 Systolic blood pressure 137 mm[Hg] DR SANTHOSH MCMANUS MD [facility] 03-07-2022 07:51-0400 Heart rate 68 /min DR SANTHOSH MCMANUS MD [facility] 03-07-2022 03:28-0400 Body temperature 97.34 [degF] DR SANTHOSH MCMANUS MD [facility] 03-07-2022 03:28-0400 Diastolic blood pressure 75 mm[Hg] DR SANTHOSH MCMANUS MD [facility] 03-07-2022 03:28-0400 Heart rate 68 /min DR SANTHOSH MCMANUS MD [facility] 03-07-2022 03:28-0400 Mean blood pressure 91 mm[Hg] DR SANTHOSH MCMANUS MD [facility] 03-07-2022 03:28-0400 Reason For Taking VItal Signs DR SANTHOSH MCMANUS MD [facility] 03-07-2022 03:28-0400 Respiratory rate 14 /min DR SANTHOSH MCMANUS MD [facility] 03-07-2022 03:28-0400 Systolic blood pressure 122 mm[Hg] DR SANTHOSH MCMANUS MD [facility] 03-07-2022 00:19-0400 Diastolic Blood Pressure NBP [address] SANTHOSH MCMANUS MD [facility] 03-07-2022 00:19-0400 Heart rate 86 /min DR SANTHOSH MCMANUS MD [facility] 03-07-2022 00:19-0400 Reason For Taking VItal Signs DR SANTHOSH MCMANUS MD [facility] 03-07-2022 00:19-0400 Systolic Blood Pressure NBP [address] SANTHOSH MCMANUS MD [facility] 03-06-2022 20:12-0400 Diastolic Blood Pressure NBP [address] SANTHOSH MCMANUS MD [facility] 03-06-2022 20:12-0400 Heart rate 89 /min DR SANTHOSH MCMANUS MD [facility] 03-06-2022 20:12-0400 Systolic Blood Pressure NBP [address] SANTHOSH MCMANUS MD [facility] 03-06-2022 15:45-0400 Diastolic Blood Pressure NBP [address] SANTHOSH MCMANUS MD [facility] 03-06-2022 15:45-0400 Heart rate 76 /min DR SANTHOSH MCMANUS MD [facility] 03-06-2022 15:45-0400 Systolic Blood Pressure NBP [address] SANTHOSH MCMANUS MD [facility] 03-06-2022 12:09-0400 Body height 149.[address] SANTHOSH MCMANUS MD [facility] 03-06-2022 12:09-0400 Body weight 97.[address] SANTHOSH MCMANUS MD [facility] 03-06-2022 12:09-0400 Body weight 43.48 kg/m2 DR SANTHOSH MCMANUS MD [facility] 03-06-2022 10:00-0400 Body temperature 96.62 [degF] DR SANTHOSH MCMANUS MD [facility] 03-06-2022 06:55-0400 Body height 149.[address] SANTHOSH MCMANUS MD [facility] 03-06-2022 06:55-0400 Body temperature 97.88 [degF] DR SANTHOSH MCMANUS MD [facility] 03-06-2022 06:55-0400 Body weight 97.[address] SANTHOSH MCMANUS MD [facility] 03-06-2022 06:55-0400 Heart rate 80 /min DR SANTHOSH MCMANUS MD [facility] 03-02-2022 02:54-0400 Body mass index (BMI) [Ratio] 43.7 kg/m2 Dr. J Luis Lai Work Phone: [facility] Work Phone: 02-19-2022 10:35-0400 Body height 149.[address] SANTHOSH MCMANUS MD [facility] 02-19-2022 10:35-0400 Body weight 97.[address] SANTHOSH MCMANUS MD [facility] 02-19-2022 10:35-0400 Body weight 43.48 kg/m2 DR SANTHOSH MCMANUS MD [facility] 02-19-2022 10:35-0400 diastolic 78 mm[Hg] DR SANTHOSH MCMANUS MD [facility] 02-19-2022 10:35-0400 Heart rate 64 /min DR SANTHOSH MCMANUS MD [facility] 02-19-2022 10:35-0400 Respiratory rate 18 /min DR SANTHOSH MCMANUS MD [facility] 02-19-2022 10:35-0400 systolic 122 mm[Hg] DR SANTHOSH MCMANUS MD [facility] 02-07-2022 15:01-0500 Diastolic blood pressure 93 mm[Hg] Dr. J Luis Lai Work Phone: [facility] Work Phone: 02-07-2022 15:01-0500 Systolic blood pressure 154 mm[Hg] Dr. J Luis Lai Work Phone: [facility] Work Phone: 02-07-2022 14:01-0500 Diastolic blood pressure 93 mm[Hg] Dr. J Luis Lai Work Phone: [facility] Work Phone: 02-07-2022 14:01-0500 Systolic blood pressure 154 mm[Hg] Dr. J Luis Lai Work Phone: [facility] Work Phone: 02-07-2022 13:52-0500 Body mass index (BMI) [Ratio] 43.6 kg/m2 Dr. J Luis Lai Work Phone: [facility] Work Phone: 02-07-2022 13:52-0500 Body weight 97.[address] J Luis Lai Work Phone: [facility] Work Phone: 02-07-2022 13:52-0500 Heart rate 78 /min Dr. J Luis Lai Work Phone: [facility] Work Phone: 02-07-2022 13:52-0500 Respiratory rate 18 /min Dr. J Luis Lai Work Phone: [facility] Work Phone: 02-07-2022 13:52-0500 SaO2% (BldA) [Mass fraction] 96 % Dr. J Luis Lai Work Phone: [facility] Work Phone: 02-07-2022 12:52-0500 Body height 149.[address] J Luis Lai Work Phone: [facility] Work Phone: 02-07-2022 12:52-0500 Body mass index (BMI) [Ratio] 43.6 kg/m2 Dr. J Luis Lai Work Phone: [facility] Work Phone: 02-07-2022 12:52-0500 Body weight 97.[address] J Luis Lai Work Phone: [facility] Work Phone: 02-07-2022 12:52-0500 Heart rate 78 /min Dr. J Luis Lai Work Phone: [facility] Work Phone: 02-07-2022 12:52-0500 Respiratory rate 18 /min Dr. J Luis Lai Work Phone: [facility] Work Phone: 02-07-2022 12:52-0500 SaO2% (BldA) [Mass fraction] 96 % Dr. J Luis Lai Work Phone: [facility] Work Phone: 01-30-2022 10:16-0500 Body mass index (BMI) [Ratio] 43.7 kg/m2 Dr. J Luis Lai Work Phone: [facility] Work Phone: 01-30-2022 09:16-0500 Body mass index (BMI) [Ratio] 43.7 kg/m2 Dr. J Luis Lai Work Phone: [facility] Work Phone: 12-21-2021 09:52-0500 Body mass index (BMI) [Ratio] 41.8 kg/m2 Dr. J Luis Lai Work Phone: [facility] Work Phone: 12-21-2021 09:52-0500 Body temperature 98.3 [degF] Dr. J Luis Lai Work Phone: [facility] Work Phone: 12-21-2021 09:52-0500 Body weight 94.[address] J Luis Lai Work Phone: [facility] Work Phone: 12-21-2021 09:52-0500 Diastolic blood pressure 87 mm[Hg] Dr. J Luis Lai Work Phone: [facility] Work Phone: 12-21-2021 09:52-0500 Heart rate 76 /min Dr. J Luis Lai Work Phone: [facility] Work Phone: 12-21-2021 09:52-0500 Respiratory rate 15 /min Dr. J Luis Lai Work Phone: [facility] Work Phone: 12-21-2021 09:52-0500 Systolic blood pressure 134 mm[Hg] Dr. J Luis Lai Work Phone: [facility] Work Phone: 12-03-2021 18:17-0500 Body mass index (BMI) [Ratio] 43.7 kg/m2 Dr. J Luis Lai Work Phone: [facility] Work Phone: 12-03-2021 17:17-0500 Body mass index (BMI) [Ratio] 43.7 kg/m2 Dr. J Luis Lai Work Phone: [facility] Work Phone: 11-01-2021 03:04-0500 Body mass index (BMI) [Ratio] 43.7 kg/m2 Dr. J Luis Lai Work Phone: [facility] Work Phone: 01-24-2021 11:05-0500 Body temperature 98.4 [degF] [facility] 01-24-2021 11:05-0500 Diastolic blood pressure 83 mm[Hg] [facility] 01-24-2021 11:05-0500 Heart rate 81 /min [facility] 01-24-2021 11:05-0500 Respiratory rate 14 /min [facility] 01-24-2021 11:05-0500 SaO2% (BldA) [Mass fraction] 98 % [facility] 01-24-2021 11:05-0500 Systolic blood pressure 139 mm[Hg] [facility] 01-24-2021 10:05-0500 Body temperature 98.4 [degF] Dr. J Luis Lai Work Phone: [facility] Work Phone: 01-24-2021 10:05-0500 Body weight 102.[address] J Luis Lai Work Phone: [facility] Work Phone: 01-24-2021 10:05-0500 Diastolic blood pressure 83 mm[Hg] Dr. J Luis Lai Work Phone: [facility] Work Phone: 01-24-2021 10:05-0500 Heart rate 81 /min Dr. J Luis Lai Work Phone: [facility] Work Phone: 01-24-2021 10:05-0500 Respiratory rate 14 /min Dr. J Luis Lai Work Phone: [facility] Work Phone: 01-24-2021 10:05-0500 SaO2% (BldA) [Mass fraction] 98 % Dr. J Luis Lai Work Phone: [facility] Work Phone: 01-24-2021 10:05-0500 Systolic blood pressure 139 mm[Hg] Dr. J Luis Lai Work Phone: [facility] Work Phone: 01-19-2021 11:15-0500 Body mass index (BMI) [Ratio] 41 kg/m2 Dr. J Luis Lai Work Phone: [facility] Work Phone: Encounters Encounter Date Encounter Type Care Provider Facility Start: 09-14-[address] Josue Leal MD -[facility] Start: 09-14-2025 End: 09-14-[address] Josue Leal MD -[facility] Work Phone: Start: 09-14-2025 End: 09-14-[address] Daniel Lai MD Work Phone: -[facility] Start: 09-10-2025 ambulatory Daniel Thibodeaux lity:[facility] Start: 09-01-2025 End: 09-01-2025 Patient encounter procedure Brandie MARTINEZ -[facility] Work Phone: Start: 09-01-2025 End: 09-01-[address] Daniel Lai MD Work Phone: -[facility] Start: 08-25-2025 End: 08-25-[address] Daniel Lai MD Work Phone: -[facility] Start: 08-25-2025 End: 08-25-[address] Daniel Lai MD -[facility] Work Phone: Start: 08-24-2025 End: 08-31-[address] Daniel Lai MD Work Phone: -[facility] Start: 08-24-2025 End: 08-31-[address] Juni Epstein MD -[facility] [place] [facility] Work Phone: Start: 08-16-2025 End: 08-16-[address] Jessy Wade MD -[facility] Work Phone: Start: 08-16-2025 End: 08-16-[address] Daniel Lai MD Work Phone: -[facility] Start: 08-04-[address] Juni Epstein MD -[facility] Work Phone: Start: 06-25-2025 End: 07-02-[address] Juni Epstein MD -Laboratory [facility] Work Phone: Start: 06-25-2025 End: 07-02-[address] Daniel Lai MD Work Phone: -[facility] Start: 06-24-2025 Encounter for other preprocedural examination Senait Dick [facility] Start: 06-07-2025 End: 06-07-[address] Senait Dick DO -[facility] Work Phone: Start: 06-07-2025 End: 06-07-[address] Daniel Lai MD Work Phone: -[facility] Start: 06-01-2025 Non-patient / Non-visit Dr. Jessy hillman MD -[facility] Work Phone: Start: 05-25-2025 ambulatory Daniel Thibodeaux lity:[facility] Start: 05-25-2025 Non-patient / Non-visit Dr. 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 Daniel Lai MD Work Phone: [facility] Work Phone: Start: 05-21-2025 ambulatory Daniel Thibodeaux lity:[facility] Start: 05-21-2025 Non-patient / Non-visit [facility]. Mauro trinidad DO -[facility] Start: 05-18-2025 End: 05-18-2025 Patient encounter procedure Luanne LEWIS -[facility] Work Phone: Start: 05-18-2025 End: 05-18-[address] Daniel Lai MD Work Phone: [facility] Work Phone: Start: 05-18-2025 End: 05-18-2025 ambulatory Daniel Lai Facility:[facility] Start: 05-01-2025 End: 05-01-2025 Emergency department patient visit Dr. Daniel Lai MD Work Phone: -Emergency Department Work Phone: Start: 04-30-2025 End: 04-30-[address] Senait Dick DO -[facility] Work Phone: Start: 04-30-2025 End: 04-30-[address] Daniel Lai MD Work Phone: [facility] Work Phone: Start: 04-29-2025 End: 04-29-2025 ambulatory Daniel Lai Facility:[facility] Start: 04-29-2025 End: 04-29-2025 Non-patient / Non-visit Dr. Holger Del Valle MD -[facility] Work Phone: Start: 04-06-2025 End: 04-06-[address] Daniel Lai MD Work Phone: [facility] Work Phone: Start: 04-06-2025 End: 04-06-[address] Daniel Lai MD -Physical Therapy Work Phone: Start: 04-06-2025 End: 04-06-[address] Senait Dick DO -[facility] Work Phone: Start: 04-06-2025 End: 04-06-2025 ambulatory Daniel Lai Facility:[facility] Start: 03-26-2025 ambulatory Daniel Lai Faci lity:[facility] Start: 03-26-2025 Non-patient / Non-visit Dr. Lenka BERRIOS -[facility] Start: 03-26-2025 End: 03-26-[address] Juni Epstein MD -Cardiovascular Services Work Phone: Start: 03-26-2025 End: 03-26-2025 ambulatory Daniel Lai Facility:[facility] Start: 03-22-[address] Josue Leal MD -[facility] Start: 03-22-2025 End: 03-22-[address] Josue Leal MD -[facility] Work Phone: Start: 03-22-2025 End: 03-22-2025 ambulatory Daniel Lai Facility:[facility] Start: 02-26-2025 End: 02-26-2025 Patient encounter procedure Brandie MARTINEZ -[facility] Work Phone: Start: 02-26-2025 End: 02-26-2025 ambulatory Daniel Lai Facility:[facility] Start: 02-24-2025 End: 02-24-[address] Juni Epstein MD -Laboratory, [facility] Work Phone: Start: 02-24-2025 End: 02-24-[address] Daniel Lai MD Work Phone: [facility] Work Phone: Start: 01-14-2025 ambulatory Daniel Tyleri lity:[facility] Start: 01-14-2025 Non-patient / Non-visit Dr. Garima Lai MD -[facility] Work Phone: Start: 12-17-2024 ambulatory Daniel Lai Faci lity:[facility] Start: 12-17-2024 Non-patient / Non-visit Dr. Garima Lai MD -[facility] Work Phone: Start: 11-30-2024 ambulatory Daniel Thibodeaux lity:[facility] Start: 11-30-2024 Non-patient / Non-visit Dr. Garima Lai MD -[facility] Work Phone: Start: 11-26-2024 ambulatory Daniel Tyleri lity:[facility] Start: 11-26-2024 Non-patient / Non-visit Dr. Garima Lai MD -[facility] Work Phone: Start: 10-26-2024 End: 10-31-2024 ambulatory Joanna Saavedra NP Facility:[facility] Start: 10-20-2024 End: 10-20-2024 ambulatory Cliff Delroyburns Facility:[facility] Start: 10-20-2024 End: 10-20-2024 ambulatory Fernwood Joelle Facility:[facility] Start: 10-15-2024 End: 10-15-[facility]24 [facility] Start: 03-27-2024 End: 03-31-[address] Daniel Lai Work Phone: [facility] Work Phone: Start: 03-27-2024 End: 03-31-[address] Daniel Lai Work Phone: [facility] Work Phone: Start: 03-19-[address] Arsalan Lai Work Phone: [facility] Start: 03-16-2024 End: 03-16-[address] Daniel Lai Work Phone: [facility] Work Phone: Start: 01-16-2024 Non-patient / Non-visit Dr. Garima Lai Work Phone: [facility] Work Phone: Start: 12-19-2023 Non-patient / Non-visit Dr. Garima Lai Work Phone: [facility] Work Phone: Start: 10-21-2023 End: 10-21-[address] J Luis Lai Work Phone: [facility] Work Phone: Start: 10-21-2023 End: 10-21-[address] J Luis Lai [facility] Phone[facility] Start: 10-18-2023 End: 10-18-[address] J Luis Lai Work Phone: [facility] Work Phone: Start: 10-09-2023 End: 10-31-[address] J Luis Lai Work Phone: [facility] Work Phone: Start: 10-09-2023 End: 10-31-[address] [facility] Work [facility] Start: 10-09-[address] Arsalan Lai [facility] Work [facility]: Start: 09-26-2023 End: 09-26-[address] J Luis Lai Work Phone: [facility]-Pulmonary Medicine [facility] Work Phone: Start: 09-23-2023 Non-patient / Non-visit Dr. Garima Lai Work Phone: [facility] Start: 09-23-2023 End: 09-23-[address] J Luis Lai Work Phone: [facility] Work Phone: Start: 09-23-2023 End: 09-23-[address] J Luis Lai Work Phone: [facility]-Cardiovascula r Services Work Phone: Start: 09-11-2023 End: 09-11-[address] J Luis Lai Work Phone: [facility] Work Phone: Start: 09-11-2023 End: 09-11-[address] J Luis Lai Work Phone: [facility] Work Phone: Start: 09-11-2023 Registered Recurring Dr. Arsalan Lai Work Phone: [facility] Work Phone: Start: 08-22-2023 End: 08-22-2023 ambulatory [facility] Work Phone: Start: 08-22-2023 End: 08-22-2023 Patient encounter procedure [facility]-Outpatient Breast Imaging Work Phone: Start: 08-20-2023 Registered Recurring [facility] Start: 08-19-2023 End: 08-19-2023 ambulatory [facility] Work Phone: Start: 08-19-2023 End: 08-19-2023 [facility] Start: 08-09-2023 End: 08-09-2023 ambulatory [facility] Work Phone: Start: 08-09-2023 End: 08-09-2023 Discharged Recurring [facility] Work Phone: Start: 08-09-2023 Registered Recurring [facility] Work Phone: Start: 07-30-2023 End: 07-30-[address] J Luis Lai Work Phone: [facility] Start: 07-05-2023 End: 07-05-[address] J Luis Lia Work Phone: [facility] Work Phone: Start: 07-05-2023 End: 07-05-[address] J Luis Lai Work Phone: [facility] Work Phone: Start: 05-27-2023 End: 05-27-[address] J Luis Lai Work Phone: [facility] Work Phone: Start: 05-27-2023 End: 05-27-[address] J Luis Lai Work Phone: [facility] Work Phone: Start: 04-18-2023 End: 04-18-[address] J Luis Lai Work Phone: [facility] Start: 04-16-2023 End: 04-16-[address] J Luis Lai Work Phone: [facility] Start: 04-12-2023 End: 04-12-[address] J Luis Lai Work Phone: [facility] Work Phone: Start: 04-12-2023 End: 04-12-[address] J Luis Lai Work Phone: [facility] Start: 01-24-2023 Non-patient / Non-visit Dr. Garima Lai Work Phone: [facility] Start: 10-24-2022 End: 10-31-[address] J Luis Lai Work Phone: [facility] Work Phone: Start: 10-24-2022 End: 10-31-[address] J Luis Lai Work Phone: [facility] Start: 09-19-2022 End: 09-19-[address] J Luis Lai Work Phone: [facility] Start: 09-17-2022 End: 09-17-[address] J Luis Lai Work Phone: [facility] Start: 09-07-2022 End: 09-07-2022 Emergency department patient visit Dr. J Luis Lai Work Phone: [facility]-Emergency Department Start: 08-31-2022 End: 08-31-[address] J Luis Lai Work Phone: [facility]-Sleep Lab Start: 08-21-2022 End: 08-21-[address] J Luis Lai Work Phone: [facility]-Outpatient Bone Densitometry Start: 08-14-2022 End: 08-14-[address] J Luis Lai Work Phone: [facility] Start: 07-23-2022 End: 07-23-[address] J Luis [facility]ai [facility] Start: 07-17-2022 End: 07-17-[address] J Luis Lai Work Phone: [facility] Work Phone: Start: 07-17-2022 End: 07-17-[address] J Luis Lai Work Phone: [facility] Start: 06-20-2022 End: 06-20-[address] J Luis Lai Work Phone: [facility] Start: 06-13-2022 End: 06-13-[address] J Luis Lai Work Phone: [facility]-Outpatient Breast Imaging Start: 06-13-2022 End: 07-01-[address] J Luis Lai Work Phone: [facility] Start: 06-13-[address] Arsalan Lai Work Phone: [facility] Start: 05-21-2022 End: 05-21-[address] J Luis Lai Work Phone: [facility]-Sleep Lab Start: 05-10-2022 Non-patient / Non-visit Dr. Garima Lai Work Phone: [facility] Start: 05-10-2022 End: 05-10-[address] J Luis Lai Work Phone: [facility]-Pulmonary Services/Neurology Start: 05-04-2022 Non-patient / Non-visit Dr. Garima Lai Work Phone: [facility] Start: 05-04-2022 End: 05-04-[address] J Luis Lai Work Phone: [facility]-Cardiovascula r Services Start: 04-24-2022 End: 04-24-[address] J Luis Lai Work Phone: [facility]-Pulmonary Medicine [facility] Start: 04-24-2022 End: 04-24-[address] J Luis Lai Work Phone: [facility] Start: 03-30-2022 End: 03-30-[address] J Luis Lai Work Phone: [facility] Start: 03-30-[address] Arsalan Lai Work Phone: [facility] Start: 03-30-2022 Non-patient / Non-visit Dr. Garima Lai Work Phone: [facility] Start: 03-30-2022 End: 03-30-[address] J Luis Lai Work Phone: [facility]-Pulmonary Services/Neurology Start: 03-22-2022 End: 03-22-[address] J Luis Lai Work Phone: [facility] Start: 03-21-2022 End: 03-21-[address] J Luis Lai Work Phone: [facility] Start: 03-06-2022 End: 03-07-[address] SANTHOSH MCMANUS MD [facility] Start: 02-19-2022 End: 02-19-[address] SANTHOSH MCMANUS MD [facility] Start: 02-08-2022 End: 03-01-[address] J Luis Lai Work Phone: [facility] Start: 02-07-[address] Alysia Lai Work Phone: [facility] Start: 02-07-[address] Carlos Lai MD Work Phone: [facility] Start: 02-07-2022 End: 02-07-2022 Admission to same day surgery center Dr. J Luis Lai Work Phone: [facility] Start: 02-07-2022 End: 02-07-[address] J Luis Lai Work Phone: [facility] Start: 01-29-2022 End: 01-29-[address] J Luis Lai Work Phone: [facility] Start: 01-23-2022 End: 01-23-[address] J Luis [facility]ai [facility] Start: 12-21-[address] Arsalan Lai Work Phone: [facility] Start: 12-21-2021 End: 12-21-[address] J Luis Lai Work Phone: [facility] Start: 12-04-2021 End: 12-04-[address] J Luis Lai [facility] Start: 11-22-2021 End: 12-02-[address] J Luis Lai Work Phone: [facility] Procedures Date Procedure Procedure Detail Performing Clinician Start: 09-14-[address] Daniel Lai MD Work Phone: Start: 08-17-2025 Vitamin D, 25-hydrox y measurement Dr. Daniel Lai MD Work Phone: Comment on above: Vitamin D StatusDefi ciency: <20 ng/mL (50nmol/L)Insufficiency: 20-30 ng/mL (50-75 nmol/L)Sufficiency: 30-100 ng/mL (75-250 nmol/L)Toxicity: >100 ng/mL (>250 nmol/L) Start: 05-25-[address] Adrián Lai MD [...] Phone: Comment on above: GFR Calc Start: 09-14-[address] Daniel Lai MD Work Phone: Start: 03-16-2024 Vitamin D, 25-hydrox y measurement [...] on above: LEFT Lumpectomy of right breast D Christa MCMANUS MD Release of trigger finger DR SANTHOSH MCMANUS MD Comment on above: Bilateral hands SARS-CoV-2 & FLU Ant igen (Rapid) Dr. J Luis Lai Work Phone: Tonsillectomy DR SANTHOSH HOLDEN MD Total knee replacement DR IVORY BERRIOS Comment on above: QUINN Total shoulder replacement Miguel MCMANUS MD Comment on above: RIGHT Plan of Treatment Date Care Activity Detail Author Start: 03-29-2026 Lactate dehydrogenase measurement [facility] Start: 05-25-2025 Ambulation without limitation [facility] Start: 05-25-2025 Medication education [facility] Start: 05-25-2025 Patient discharge [facility] Start: 05-25-2025 Planned voiding [facility] Start: 05-25-2025 Procedure discontinued [facility] Start: 05-25-2025 Taking patient vital signs [facility] Start: 05-25-2025 Vital signs measurements [facility] Start: 05-25-2025 [facility] Start: 05-25-2025 Anesthesia vaginal procedure w/biopsy nos ANESTH VAGINAL PROCEDURES [facility] Start: 05-25-2025 Excision vaginal cyst/tumor EXCISION VAGINAL CYST/TUMOR [facility] Start: 05-25-2025 Lysis labial adhesions LYSIS OF LABIAL ADHESIONS [facility] Start: 05-25-2025 Excision Excision, Lesion (Not Applicable) [facility] Start: 05-01-2025 [facility] Start: 05-01-2025 End: 05-01-2025 [facility] Start: 05-01-2025 Bacteria identified in Urine by Culture Urine Culture [facility] Start: 03-17-2024 Patient referral [facility] Work Phone: Start: 08-22-2023 Ultrasonography of breast Breast Limited Unilateral [facility] Start: 08-22-2023 US Breast limited [facility] Start: 01-19-2020 MG Breast - bilateral Screening [facility] Start: 04-07-2019 [facility] CBC W Auto Different ial panel - Blood [facility] Work Phone: CBC W Auto Different ial panel - Blood [facility] CBC W Auto Different ial panel - Blood [facility] CBC W Auto Different ial panel - Blood [facility] CBC W Auto Different ial panel - Blood [facility] Comprehensive metabo lic 1999 panel - Serum or Plasma [facility] Comprehensive metabo lic 1999 panel - Serum or Plasma [facility] DXA Bone [Mass/Area] Bone density [facility] Work Phone: Lactate dehydrogenas e measurement [facility] Lactate dehydrogenas e measurement [facility] Lactate dehydrogenas e measurement [facility] LDH [facility] Work Phone: Magnesium [Mass/volu me] in Serum or Plasma [facility] Magnesium [Mass/volu me] in Serum or Plasma [facility] MG Breast - bilatera l Screening [facility] Patient Education [facility] Work Phone: Patient referral [facility] Work Phone: Serum inorganic phos phate measurement [facility] Urine culture [facility] Immunizations Immunization Date Immunization Notes Care Provider Fa cility 12-06-2021 SARS-CoV-2 mRNA (tozinameran) vaccine DR SANTHOSH MCMANUS MD [facility] 08-16-2021 influenza virus vaccine, unspecified formulation DR SANTHOSH MCMANUS MD [facility] 03-10-2021 SARS-CoV-2 (COVID-19 ) mRNA-[address] SANTHOSH MCMANUS MD [facility] 02-10-2021 SARS-CoV-2 (COVID-19 ) mRNA-[address] SANTHOSH MCMANUS MD [facility] 11-13-2017 pneumococcal conjuga te vaccine, [address] SANTHOSH MCMANUS MD [facility] Payers Date Payer Category Payer Medicare [id number] 2019 Self-pay [id number] 2009 Unknown [id number] 2008 Medicare [id number] Unknown [id number] Unknown [id number] 2.16.8 40.1.682837.3.579.2.462 Unknown [id number] 2.16.8 40.1.094851.3.579.2.462 Unknown [id number] 2.16.8 40.1.142851.3.579.2.462 Unknown [id number] 2.16.8 40.1.015322.3.579.2.462 Unknown [id number] 2.16.8 40.1.741902.3.579.2.462 Unknown [id number] 2.16.8 40.1.078823.3.579.2.462 Unknown [id number] 2.16.8 40.1.816608.3.579.2.462 Unknown [id number] 2.16.8 40.1.574250.3.579.2.462 Unknown [id number] 2.16.8 40.1.569495.3.579.2.462 Unknown [id number] 2.16.8 40.1.465802.3.579.2.462 Unknown [id number] 2.16.8 40.1.797152.3.579.2.462 Unknown [id number] 2.16.8 40.1.852030.3.579.2.462 Unknown [id number] 2.16.8 40.1.810608.3.579.2.462 Unknown [id number] 2.16.8 40.1.502563.3.579.2.462 Unknown [id number] 2.16.8 40.1.819115.3.579.2.462 Unknown [id number] 2.16.8 40.1.188343.3.579.2.462 Unknown [id number] 2.16.8 40.1.863666.3.579.2.462 Unknown [id number] 2.16.8 40.1.089348.3.579.2.462 Unknown [id number] 2.16.8 40.1.807400.3.579.2.462 Unknown [id number] 2.16.8 40.1.873884.3.579.2.462 Unknown [id number] 2.16.8 40.1.381297.3.579.2.462 Unknown [id number] 2.16.8 40.1.263549.3.579.2.462 Unknown [id number] 2.16.8 40.1.660109.3.579.2.462 Unknown [id number] 2.16.8 40.1.127846.3.579.2.462 Unknown [id number] 2.16.8 40.1.457225.3.579.2.462 Unknown [id number] 2.16.8 40.1.128779.3.579.2.462 Unknown [id number] 2.16.8 40.1.063464.3.579.2.462 Unknown [id number] 2.16.8 40.1.720040.3.579.2.462 Unknown [id number] 2.16.8 40.1.963411.3.579.2.462 Unknown [id number] 2.16.8 40.1.879733.3.579.2.462 Unknown [id number] 2.16.8 40.1.148431.3.579.2.462 Unknown [id number] 2.16.8 40.1.833970.3.579.2.462 Unknown [id number] 2.16.8 40.1.386717.3.579.2.462 Social History Date Type Detail Facility Start: 02-19-2022 End: 05-01-2025 Never smoked tobacco (finding) [facility] Start: 1945 Sex Assigned At Female [facility] Start: 02-07-2022 End: 10-18-2023 Tobacco smoking status NHIS Unknown if ever smoked [facility] Start: 09-18-2019 None [facility] Start: 09-18-2019 Alone [facility] Start: 01-24-2021 Non-smoker [facility] Start: 03-01-2025 Sex Female (finding) [facility] Not [facility] NEGATED: Highlighted row Not [facility] Medical Equipment Procedure Code Equipment Code Equipment Origin al Text Equipment Identifier Dates Excision, lesion Collagen haemos tatic agent, non-antimicrobial [id number] FDA Start: 05-25-2025 Goals Date Patient Goal Desired Activity /State Functional Status Date Assessment Result Facility 03-07-2022 [facility] 03-07-2022 Functional Status [facility] 03-07-2022 Functional Status [facility] 03-07-2022 Functional Status [facility] 03-07-2022 Functional Status [facility] 03-06-2022 Functional Status [facility] 03-06-2022 Functional Status [facility] 03-06-2022 Functional Status [facility] 03-06-2022 Functional Status [facility] 03-06-2022 Functional Status [facility] 03-06-2022 Functional Status [facility] Mental Status Date Assessment Result Facility 05-25-2025 Cognitive function Voice/Name [facility] Work Phone: 05-25-2025 Cognitive function Voice/Name [facility] Work Phone: 05-01-2025 Cognitive function Level Of Cons ciousness Awake;Alert;Appropriate [facility] Work Phone: 03-22-2025 Cognitive function Voice/Name [facility] Work Phone: 03-19-2024 Cognitive function Voice/Name [facility] Work Phone: 08-20-2023 Cognitive function Voice/Name [facility] Work Phone: 09-07-2022 Cognitive function Appropriate;Cooperativ e [facility] Work Phone: 03-07-2022 Mental Status [facility] 03-07-2022 Mental Status [facility]-07-2022 Mental Status [facility] 03-06-2022 Mental Status [facility] Clinical Notes 03-07-2022 to 09-14-2025 Note Date & Type Note Facility 09-14-2025 Progress note [facility] 09-01-2025 Progress note [facility] 09-01-2025 Progress note Note Date/Time September 01, 2025 2:45pm [facility] [address] [place] [address] OFFICE VISIT Date of Service: 09/01/25 MR#: [id number] Acct: [id number] Name: GAYATHRI CORREIA Rep #: [id number] : 1945 Provider: JUAN Doran Age/Sex: 80/F Location: [place] Status: Signed Assessment and Plan Assessment and Plan (1) TERRY (obstructive sleep apnea): Status: Chronic Comment: AHI 47.9. Plan: She is using and benefiting from Pap therapy. Ordering a new device, her machine is 8 years old and is not transmitting data. It was also recently broken and requiring a repair. No indication for titration study at this time. Contact the office for any new or worsening symptoms in the meantime. Follow-upin 2 months to evaluate response on new machine. (2) Secondary pulmonary hypertension: Status: Chronic Plan: Symptomatically stable. She is using and benefiting from supplemental oxygen bleed into the PAP machine. (3) Obesity: Status: Chronic Qualifiers: Obesity type: due to excess calories Obesity classification: adult class 3 (BMI >= 40) Serious obesity comorbidity presence: with serious comorbidity Body mass index: BMI 45.0-49.9 Qualified Code(s): E66.01 - Morbid (severe) obesity due to excess calories; Z68.42 - Body mass index [BMI] 45.0-49.9, adult Plan: Complicates exam, plan, care and prognosis. Continue to encourage weight loss. Plan Details Additional Comments: This note was generated with [employer] dictation software. It may contain incorrectwords, spelling, and punctuation that were not noted in checking the note beforesigning. Portions of this documentation have been copied and pasted from previous office visit notes to provide a cohesive continuity of the history. The note has been reviewed, edited, and updated, as necessary. Follow Up: 2 Months HPI 6 M FU Chief Complaint: pap therapy HPI Comments Details: This patient presents to the office today for follow-up of her obstructive sleepapnea. She is ambulatory with use of a cane and on room air. She has not recently been seen in the ED or urgent care for any respiratory illness. She has not required any antibiotics or prednisone for any breathing problems. She is a lifelong never smoker. She is not currently on any inhalers. [...] hemoptysis. She wakes up feeling rested and refreshed. She reports that her machine is approximately 8 years old. He recently stopped working and the [employer] had it for 3 weeks trying to repair it. She is having some difficulty with dry mouth. She denies snoring through the mask. She is not having excessive nocturia. She is not having morning headaches. She denies nodding off to sleepunintentionally. Compliance report for the past 90 days shows 56 % compliance (due to nonfunctioning machine) and average use of 7 hours and 37 minutes per night. Compliance is noted to be 100% for the past 2 weeks, since the patient received a working machine. Current setting is AutoPap 5 to 20 cm water pressure with a 2 LPM oxygen bleed, typically being utilized 8.6-13.0 cm water. Residual AHI of2.3 events per hour. Leaks do not appear to be problematic. Test results personally reviewed with the patient: Pulmonary stress test completed on May 18, 2025. Patient was able to ambulate total of 413 feet over the course of 6 minutes. She did not desaturate and doesnot currently qualify for supplemental oxygen. Intake Vital Signs 02/26/25 08:22 06/07/25 14:38 09/01/25 09:16 Height 4 ft 10 in 4 ft 10 in 4 ft 10 in Weight: 191 lb BMI 39.9 BP 124/73 H Blood Pressure Location Lt brachial Position Sitting Respiration 18 Pulse 72 Pulse Source Monitor Temp 97.3 F L Temperature Source Temporal Artery Pulse Oximetry (%) 94 Oxygen Delivery Method room air Intake Visit Reasons: 6 M FU Chief Complaint: 3 month f/u DME Vendor: [employer] Accompanied by: Self Allergies No Known Allergies Allergy (Verified 09/01/25 14:22) Medications ?Medication ?Instructions ?Recorded ?Confirmed ?Type [id number] 8 mg-folic 400 1 ea PO DAILY supple ment 03/02/17 09/01/25 History mcg-K 50 mcg-lutein 300 mcg tablet gabapentin 300 mg capsule 300 mg PO BID pain 30 days # 90 caps 12/24/18 09/01/25 History coenzyme Q10 100 mg capsule 100 mg PO DAILY 08/09/21 1 History (Q-Sorb Co Q-10) melatonin 3 mg tablet 10 mg PO QHS sleep 02/07/22 09/01/25 History acetaminophen 500 mg tablet 1,000 mg PO ONCE 11/09/22 09/01/25 History calcium carbonate (Calcium 600) 600 mg PO BID 11/09/22 09/01/25 History cholecalciferol (vitamin D3) 50 50 mcg PO BID 11/09/22 09/01/25 History mcg (2,000 unit) capsule pyridoxine (vitamin B6) 100 mg 100 mg PO DAILY supplem ent 11/09/22 09/01/25 History tablet escitalopram oxalate 10 mg tablet 10 mg PO QDAY 09/01/25 History warfarin 3 mg tablet 3 mg PO .COMPLEX #90 TABLETS 03/08/25 09/01/25 Rx furosemide 40 mg tablet 40 mg PO DAILY #90 tabs 08/2609/01/25 Rx metoprolol succinate 25 mg 25 mg PO .COMPLEX afib #180 tabs 03/15/25 09/01/25 Rx tablet,extended release 24 hr atorvastatin 10 mg tablet 10 mg PO DAILY #90 tabs 03/0309/01/25 Rx losartan 100 mg tablet 100 mg PO DAILY #90 tabs 09/01/25 Rx metoprolol tartrate 25 mg tablet 25 mg PO .COMPLEX PRN rapid HR #10 05/18/25 09/01/25 Rx tabs tamoxifen 20 mg tablet 20 mg PO DAILY #90 TABLETS 0 07/23/25 09/01/25 Rx Have you fallen in the past year?: Yes PFSH Medical History Constipation Urge incontinence Urinary retention Dilated aortic [...] atrial flutter Spinal stenosis Essential (primary) hypertension detention (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 of anticoagulants Paroxysmal atrial fibrillation [...] use additional social history: Review of Systems Resp Respiratory: Yes as per HPI Exam Const Constitutional: Positive conversant, cooperative, in no acute respiratory distress, healthy appearing, well developed, well nourished, good hygiene and obese Head Head: Yes normocephalic, Yes atraumatic and No cyanosis of lips/distal nose Eyes Eye: Positive clear conjunctiva; Negative nystagmus Ears Ear: Positive hearing normal Nose Nose: Yes external nose normal Mouth Mouth: Positive oral mucosae normal Neck Neck: Positive normal visual inspection, full ROM and trachea midline Chest Wall Chest: Positive normal inspection of the chest and symmetric chest movement Resp lung sounds: Positive clear to auscultation, good air exchange and normal expiratory time; Negative wheezes, rhonchi, rales or use of accessory muscles Cardio Cardiac: Positive regular rate, regular rhythm, S1 normal and murmur (3/6) murmur: Positive right upper sternal border and systolic; Negative S2 normal (Pronounced S2), rub or gallop GI GI: Positive obese Musc Musculoskeletal: Positive using an assistive device for ambulation; Negative kyphosis or scoliosis Skin Pulmonary Skin Exam: Positive intact; Negative lesion, rash, ulcers or erythema Pulses Pulse: Yes radial pulses present Extremities Extremities: Yes capillary refill normal, No clubbing, No cyanosis and No edema Neuro Neurologic: Yes no focal neuro deficits, Yes conversant, Yes cooperative, Yes normal cognition, Yes normal coordination, Yes normal concentration and Yes understands questions Psych Appearance: Positive grossly normal, eye contact and well kempt Mental Status: Positive mental status grossly normal Mood: Positive congruent mood Affect: Positive normal affect Coding Level of Care Code Off vis,est,level 3 Diagnoses TERRY (obstructive sleep apnea) G47.33 Secondary pulmonary hypertension Class 3 severe obesity due to excess calories with serious comorbidity and body mass index (BMI) of 45.0 to 49.9 in adult E66.01; Z68.42 Obesity type: due to excess calories Obesity classification: adult class 3 (BMI >= 40) Serious obesity comorbidity presence: with serious comorbidity Body mass index: BMI 45.0-49.9 Clinical Quality Measures Falls Risk Screening/Assistive Devices Have you fallen in the past year?: Yes 09/01/25 1454 <Electronically signed by Brandie simmons SUPPLY CHAIN ANALYST SUPPLY CHAIN ANALYST-C> Date _ Brandie Doran SUPPLY CHAIN ANALYST SUPPLY CHAIN ANALYST-C Cosigner Signature: Date (if applicable) CC: Dr. Daniel Lai MD ~ [facility] Work Phone: 1(645) 951-772907-07-2025 Evaluation note* Diagnosis Onset Date Resolution Status Admit Date Vaginal mass acute June 07 2:35pm Constipation acute August 162024 9:13am Urge incontinence acute Septemb er 2024 9:13am Urinary retention acute Septemb er 2024 9:13am Obesity chronic September 01 2:06pm TERRY (obstructive sleep apnea) chroni c September 01, 2025 2:06pm Secondary pulmonary hypertension chronic September 01 2:06pm History of right breast cancer chronic September 14 1:01pm Lung nodule, multiple chronic Oct messi 2024 1:01pm Osteoporosis chronic September 1:01pm Breast cancer, right breast chronic September 14, 2025 1:15pm Lung nodule, multiple chronic Oct messi 2024 1:15pm Encounter for education inactive O ctober 2024 1:15pm [facility] Work Phone: 1(553) 815-906007-07-2025 [facility] [address] [place] [address], [address] [place] [address] OFFICE VISIT Date of Service: 06/07/25 MR#: [id number] Acct: [id number] Name: GAYATHRI CORREIA Rep #: [id number] : 1945 Provider: Dr. Sinai Dick DO Age/Sex: 79/F [place] [facility] [place]: Signed Intake Vital Signs 04/06/25 08:35 04/30/25 13:50 05/25/25 12:03 06/07/25 14:36 06/07/25 14:38 Height 4 ft 10 in 4 ft 10 in 4 ft 10 in 4 ft 10 in 4 ft 10 in Weight: 196 lb 8 oz BMI 41.1 BP 116/81 H Intake Visit Reasons: 2 wk labial lysys adhesions remove vag. mass Metals Sales Representative Required: No Is patient in pain?: No Allergies No Known Allergies Allergy (Verified 06/07/25 14:36) Medications ?Medication ?Instructions ?Recorded ?Confirmed ?Type rozkufwn-wlpg-kafq 8 mg-folic 400 1 ea PO DAILY [...] tablet 40 mg PO DAILY #90 tabs 04/0 08/2606/07/25 Rx metoprolol succinate 25 mg 25 mg PO .COMPLEX afib #180 tabs 03/15/25 06/07/25 Rx tablet,extended release 24 hr atorvastatin 10 mg tablet 10 mg PO DAILY #90 tabs 04/2 12/2606/07/25 Rx losartan 100 mg tablet 100 mg PO DAILY #90 tabs 06/07/25 Rx metoprolol tartrate 25 mg tablet 25 mg PO .COMPLEX PRN rapid HR #10 05/18/25 06/07/25 Rx tabs estradiol 0.01% (0.1 mg/gram) 1 appful vaginal DAILY # 42.5 grams 05/25/25 06/07/25 Rx vaginal cream Is last menstrual period known: No Post menopausal: Yes Patient : No : No [facility] Medical History Dilated aortic root Wears glasses [...] atrial flutter Spinal stenosis Essential (primary) hypertension detention (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 of anticoagulants Paroxysmal atrial fibrillation [...] Route Bth Weight Infant Gen Labor Lgth Anes thesi a Del Locatn Provider FOB Unknown Sergey Unknown Anuel Unknown Akiko ROS ENT ENT: Reports system reviewed and no [...] estrogen cream. rto in one year 06/07/25 1503 e Noreen DO> Date _ Senait Dick DO Cosigner Signature: Date (if applicable) CC: ~ [facility] [id number] Progress note Author Senait Sorto [facility] Note Date/Time June 07, 2025 3:03p shawna [facility] [address] [place] [address], [address] [place] [address] OFFICE VISIT Date of Service: 06/07/25 MR#: [id number] Acct: [id number] Name: GAYATHRI CORREIA Rep #: [id number] : 1945 Provider: Dr. Sinai Dick DO Age/Sex: 79/F Location: [facility] Status: Signed Intake Vital Signs 04/06/25 08:35 04/30/25 13:50 05/25/25 12:03 06/07/25 14:36 06/07/25 14:38 Height 4 ft 10 in 4 ft 10 in 4 ft 10 in 4 ft 10 in 4 ft 10 in Weight: 196 lb 8 oz BMI 41.1 BP 116/81 H Intake Visit Reasons: 2 wk labial lysys adhesions remove vag. mass Metals Sales Representative Required: No Is patient in pain?: No Allergies No Known Allergies Allergy (Verified 06/07/25 14:36) Medications ?Medication ?Instructions ?Recorded ?Confirmed ?Type znzmtwfb-idql-xqiv 8 mg-folic 400 1 ea PO DAILY [...] tablet 40 mg PO DAILY #90 tabs 08/2606/07/25 Rx metoprolol succinate 25 mg 25 mg PO .COMPLEX afib #180 tabs 03/15/25 06/07/25 Rx tablet,extended release 24 hr atorvastatin 10 mg tablet 10 mg PO DAILY #90 tabs 03/0306/07/25 Rx losartan 100 mg tablet 100 mg PO DAILY #90 tabs 06/07/25 Rx metoprolol tartrate 25 mg tablet 25 mg PO .COMPLEX PRN rapid HR #10 05/18/25 06/07/25 Rx tabs estradiol 0.01% (0.1 mg/gram) 1 appful vaginal DAILY # 42.5 grams 05/25/25 06/07/25 Rx vaginal cream Is last menstrual period known: No Post menopausal: Yes Patient : No : No [facility] Medical History Dilated aortic root Wears glasses [...] atrial flutter Spinal stenosis Essential (primary) hypertension detention (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 of anticoagulants Paroxysmal atrial fibrillation [...] estrogen cream. rto in one year 06/07/25 1503 <Electronically signed by Senait Torres DO> Date _ Senait Dick DO Cosigner Signature: Date (if applicable) CC: ~ [facility] Work Phone: 1(196) 147-531906-24-2025 Discharge summary Author Sneait Sorto [facility] Note Date/Time May 25, 2025 1:33 pm [facility] Medical Records Department [address] [place] [address] Instructions for Home/Discharge Instructions 05/25/25 1332 MR#: [id number] Acct: [id number] Name: GAYATHRI CORREIA Rep #:[id number] : 1945 79 From: Senait Dick DO PCP: Dr. Daniel Lai MD Status :REG SDC Discharge Instructions Diet Discharge Diet: No [...] Care Provider: Daniel Lai Instructions Print Language: British Discharge Orders/Prescriptions Prescriptions: Continued gabapentin 300 mg [...] not take more than one a day xifoohbi-bod-kqeq-FA-vit K-lut 1 EACH tablet 1 ea PO [...] CC: Dr. Daniel Lai MD ~ Signed [facility] Work Phone: 1(647) 363-192206-24-2025 History and physical note Author Senait Sorto [facility] Note Date/Time May 25, 2025 1:32 pm [facility] Medical Records Department [address] [place] [address] History & Physical Exam 05/25/25 1331 MR#: [id number] Acct: [id number] Name: GAYATHRI CORREIA Rep #:[id number] : 1945 79 From: Senait Dick DO PCP: Dr. Daniel Lai MD Status :[facility] Location: [place] [address] History and Physical Date of Admission: 05/25/25 Intake Vital Signs 04/06/2508:35 04/30/2513:50 Height 4 ft 10 in 4 ft 10 in Weight: 198 lb 8 oz 197 lb BMI 41.5 41.1 BP 104/71 101/69 Intake Visit Reasons: labial lysis of adhesions remove vag. mass Metals Sales Representative Required: No Is patient in pain?: No Allergies No Known Allergies Allergy (Verified 04/30/25 13:53) Medications ?Medication ?Instructions ?Recorded ?Confirmed ?Type egiztjxc-orje-eioz 8 mg-folic 400 1 ea PO DAILY [...] menopausal: Yes Patient : No : No [facility] Medical History Wears glasses Post-menopausal Cancer Depression [...] atrial flutter Spinal stenosis Essential (primary) hypertension detention (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 of anticoagulants Paroxysmal atrial fibrillation [...] she would really like to go to [facility] on the and go to a camp [...] Lai MD; Dr. Senait Dick DO~ Signed [facility] Work Phone: 1(492) 410-230406-24-2025 Consult note Author Basil Harris [facility] Note Date/Time May 25, 2025 1:28 pm [facility] Medical Records Department [address] [place] [address] Pre-Anesthesia Evaluation 05/25/25 1317 MR#: [id number] Acct: [id number] Name: GAYATHRI CORREIA Rep #:[id number] : 1945 79 From: Basil Harris MD PCP: Dr. Daniel Lai MD Status :REG SD Y Race: C Location: [place] [address] ASA Classification* ASA Classification ASA Classification: 3 [...] COAG PT 27.5 SECONDS (11.7-14.9) H 05/01/25 15:04/03 INR 2.5 01/14/25 09:25 01/14/25 Pre-Assessment Diagnosis/Proposed Procedure Planned Operative Procedure(s): Labial Lysis of Adhesions, removal of Vaginal Mass Anesthesia History Anesthesia History - housekeeping aid: Anesthesia History - housekeeping aid Hx Hospitalization No 04/28/25 13:21 Any Problems [...] sips of water?: Yes PONV PONV - housekeeping aid: PONV - housekeeping aid Female Yes 04/28/25 13:21 HX of Motion [...] 05/25/25 12:03 Respiratory Assessment Respiratory Assessment - housekeeping aid: Respiratory Tract Infection Hx - housekeeping aid Hx Respiratory Tract Infection No 04/28/25 13:21 STOP Sleep Apnea STOP Sleep Apnea - housekeeping aid: STOP Sleep Apnea - housekeeping aid Hx Hypertension Yes: states controlled with 04/28/25 [...] Tobacco Use History Tobacco Use History - housekeeping aid: Tobacco Use History - housekeeping aid Tobacco Use Smoking Status Never smoker 05/01/25 14:57 Hx Tobacco Use No 04/28/25 13:21 Years Smoking Packs Smoked per Day Smoking Cessation Date was within the last 15 years Hx Smoking Cessation Date Hx Smoking Cessation Counseling Hematologic Medial History Hematologic Hx - housekeeping aid: Hematologic Medical Hx - chain maker hand Hx of Blood Transfusion No 04/28/25 13:21 [...] confused, unrespo /Reproduction History /Reproductive History - housekeeping aid: /Reproductive Hx- housekeeping aid Hx Now No 04/28/25 13:21 Gestational Age [...] atrial flutter Spinal stenosis Essential (primary) hypertension 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 Paroxysmal atrial fibrillation Obesity Type 2 diabetes mellitus Home Medications ?Medication ?Instructions ?Recorded ?Last Taken ?Type cfmfbxuk-trfa-rbmz 8 mg-folic 400 1 ea PO DAILY [...] tablet 40 mg PO DAILY #90 tabs 04/0 08/2605/24/25 Rx metoprolol succinate 25 mg 25 mg PO .COMPLEX afib #180 tabs 03/15/25 05/25/25 Rx tablet,extended release 24 hr atorvastatin 10 mg tablet 10 mg PO DAILY #90 tabs 04/2 12/2605/24/25 Rx losartan 100 mg tablet 100 mg [...] MD Cosigner Signature: Date CC: ~ Signed [facility] Work Phone: 1(213) 302-896306-24-2025 Procedure note [facility] Medical Records Department [address] [place] [address] Operative Report 05/25/25 1417 MR#: [id number] Acct: [id number] Name: GAYATHRI CORREIA Rep #:[id number] : 1945 79 From: Senait Dick DO PCP: Dr. Daniel Lai MD Status :REG [facility] Location: [place] [address] Problems Associated Problem List Diagnoses (1) Vaginal [...] labial adhesions and removal of vaginal mass assembler semiconductor: No Type of Anesthesia: MAC and Topical [...] SCD's VTE Pharm Prophylaxis ordered?: Yes 05/25/25 1422 Cosigner Signature (if applicable): CC: Dr. Daniel Lai MD; Dr. Senait Dick DO~ Signed [facility]06-24-2025 Discharge summary [facility] Medical Records Department [address] [place] [address] Instructions for Home/Discharge Instructions 05/25/25 1332 MR#: [id number] Acct: [id number] Name: GAYATHRI CORREIA Rep #:[id number] : 1945 79 From: Senait Dick DO PCP: Dr. Daniel Lai MD Status :REG SDC Discharge Instructions Diet Discharge Diet: No [...] Care Provider: Daniel Lai Instructions Print Language: British Discharge Orders/Prescriptions Prescriptions: Continued gabapentin 300 mg [...] not take more than one a day zkledjkf-zwn-unmp-FA-vit K-lut 1 EACH tablet 1 ea PO [...] CC: Dr. Daniel Lai MD ~ Signed [facility]06-24-2025 History and physical note [facility] Medical Records Department [address] [place] [address] History & Physical Exam 05/25/25 1331 MR#: [id number] Acct: [id number] Name: GAYATHRI CORREIA Rep #:[id number] : 1945 79 From: Senait Dick DO PCP: Dr. Daniel Lai MD Status :REG [facility] Location: [place] [address] History and Physical Date of Admission: 05/25/25 Intake Vital Signs 04/06/2508:35 04/30/2513:50 Height 4 ft 10 in 4 ft 10 in Weight: 198 lb 8 oz 197 lb BMI 41.5 41.1 BP 104/71 101/69 Intake Visit Reasons: labial lysis of adhesions remove vag. 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 Senait Dick DO~ Signed [facility]06-24-2025 [facility] Medical Records Department [address] [place] [address] History Physical Exam 05/25/25 1331 MR#: [id number] Acct: [id number] Name: GAYATHRI CORREIA Rep #: [id number] : 1945 79 From: Senait Dick DO PCP: Dr. Daniel Lai MD Status:REG [facility] Location: [place] [address] History and Physical Date of Admission: 05/25/25 Intake Vital Signs 04/06/2508:35 04/30/2513:50 Height 4 ft 10 in 4 ft 10 in Weight: 198 lb 8 oz 197 lb BMI 41.5 41.1 BP 104/71 101/69 Intake Visit Reasons: labial lysis of adhesions remove vag. 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 I have explained to her that she is at risk for labial hematoma after these kinds of procedures, especially when on coum (more content not included)...[facility]06-24-2025 Consult note [facility] Medical Records Department [address] [place] [address] Pre-Anesthesia Evaluation 05/25/25 1317 MR#: [id number] Acct: [id number] Name: GAYATHRI CORREIA Rep #:[id number] : 1945 79 From: Basil Harris MD PCP: Dr. Daniel Lai MD Status :REG SDC Y Race: C Location: [place] [address] ASA Classification* ASA Classification ASA Classification: 3 [...] 15:00 05/01/25 Magnesium 2.1 mg/dL (1.6-2.6) 09/14/24 10:09/14/24 Phosphorus 2.6 mg/dL (2.5-4.9) 09/14/24 10:09/14/24 BUN [...] Vaginal Mass Anesthesia History Anesthesia History - housekeeping aid: Anesthesia History - housekeeping aid Hx Hospitalization No 04/28/25 13:21 Any Problems [...] sips of water?: Yes PONV PONV - housekeeping aid: PONV - housekeeping aid Female Yes 04/28/25 13:21 HX of Motion [...] 05/25/25 12:03 Respiratory Assessment Respiratory Assessment - housekeeping aid: Respiratory Tract Infection Hx - housekeeping aid Hx Respiratory Tract Infection No 04/28/25 13:21 STOP Sleep Apnea STOP Sleep Apnea - housekeeping aid: STOP Sleep Apnea - housekeeping aid Hx Hypertension Yes: states controlled with 04/28/25 [...] Tobacco Use History Tobacco Use History - housekeeping aid: Tobacco Use History - housekeeping aid Tobacco Use Smoking Status Never smoker 05/01/25 14:57 Hx Tobacco Use No 04/28/25 13:21 Years Smoking Packs Smoked per Day Smoking Cessation Date was within the last 15 years Hx Smoking Cessation Date Hx Smoking Cessation Counseling Hematologic Medial History Hematologic Hx - housekeeping aid: Hematologic Medical Hx - chain maker hand Hx of Blood Transfusion No 04/28/25 13:21 [...] confused, unrespo /Reproduction History /Reproductive History - housekeeping aid: /Reproductive Hx- housekeeping aid Hx Now No 04/28/25 13:21 Gestational Age [...] atrial flutter Spinal stenosis Essential (primary) hypertension detention (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 of anticoagulants Paroxysmal atrial fibrillation Obesity Type 2 diabetes mellitus Home Medications ?Medication ?Instructions ?Recorded ?Last Taken ?Type ulsixklu-szcb-zbvb 8 mg-folic 400 1 ea PO DAILY [...] additional complaints, except as documented. 05/25/25 1328 chrissy BERRIOS> Date _ Basil Harris MD Cosigner Signature: Date CC: ~ Signed [facility]06-20-2025 Procedure notey [facility] Pulmonary Services/Neurology [address] [place] [address] MR#: [id number] Acct: [id number] Name: GAYATHRI CORREIA Rep #:[id number] : 1945 79 From: Mauro Parker DO Referring Dr: Brandie Doran NP SUPPLY CHAIN ANALYST-C Status: REG CLI Location: N Date: Sex: F C PSN 6 Minute Walk Test 6 Minute Walk Test 6 Minute Walk Test: 6 Minute Walk Test PSN:6-Minute Walk Test Start: 05/18/25 12:35 Freq: Status: Active Protocol: RESP.6MINW Document 05/18/25 12:04 WLB (Rec: 05/18/25 12:38 WLB [id number]) 6 Minute Walk Test Assistive device Cane [...] of oxygen desaturation noted during this study. 05/21/251044 O> Date _ Mauro Parker DO CC: ~ Date Dictated: 05/21/251044 Date Transcribed: 05/21/251044 Political Science Chair: Dr. Mauro Parker, DO Signed [facility]06-17-2025 Evaluation note* Diagnosis Onset Date Resolution Status Admit Date Dilated aortic root acute May 18, 2025 10:49am Hyperlipidemia acute May 18, 2025 10:49am Essential (primary) hypertension chronic May 18, 2025 10:49am Paroxysmal atrial fibrillation chron ic May 18, 2025 10:49am Postmenopausal bleeding acute [facility] 2024 11:28am Vaginal mass acute May 25, 2 025 11:28am Vaginal mass acute June 07 2:35pm Constipation acute August 162024 9:13am [facility] 9[facility]13[facility] Urinary retention acute [facility] 2024 9:13am Obesity chronic September 01, 2 025 2:06pm TERRY (obstructive sleep apnea) chroni c September 01, 2025 2:06pm Secondary pulmonary hypertension chronic September 01 2:06pm [facility] Work Phone: 1(663) 837-304405-31-2025 Radiology Diagnostic study note [facility] Imaging Services [address] [place] [address] Chest PA and Lateral MR#: [id number] Acct: [id number] Name: GAYATHRI CORREIA Rep #: [id number] : 1945 F 79 From: Hilda Samson MD PCP: Dr. Daniel Lai MD Status: REG ER Study:Chest PA and Lateral Date of Exam: 05/01/25 Exam# [id number] Ordering Dr: Aisha Dee EXAM: XR Chest, 2 Views CLINICAL INDICATION: CHEST PAIN TECHNIQUE: Frontal and lateral views of the chest. COMPARISON: No relevant prior studies available. FINDINGS: LUNGS AND PLEURAL SPACES: Unremarkable. No consolidation. No pneumothorax. HEART: Unremarkable. No cardiomegaly. MEDIASTINUM: Unremarkable. Normal mediastinal contour. BONES/JOINTS: Unremarkable. No acute fracture. RAD/Chest PA and Lateral IMPRESSION: No acute cardiopulmonary process. Reading Location: [id number] CC: Dr. Daniel Lai MD; JOSHUA Francis ~ Political Science Chair: Signed [facility]05-30-2025 Evaluation note* Diagnosis Onset Date Resolution Status [...] acute August 162024 9:13am Urge incontinence acute [facility] 2024 9:13am Urinary retention acute [facility] 2024 9:13am [facility] Work Phone: 1(103) 158-254705-30-2025 Hospital Discharge instructions Additional Instructions Your testing here is normal. I am not sure what caused your episode of palpitations last night but you may have gone into A-fib and now you are in normal sinus rhythm. 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 Return if symptoms worsen.[facility] Work Phone: 1(716) 841-957505-06-2025 Discharge summary Author Murray Quintana [facility] Note Date/Time April 06, 2025 10:52a shawna [facility] Physical Therapy [facility] [address] [place] [address] / REHABILITATION SERVICES DISCHARGE SUMMARY MR#: [id number] Acct: [id number] Name: GAYATHRI CORREIA Rep #: [id number] : 1945 79 From: Cert. AGUSTINA TerrellT, OCS Referring Dr.: Dr. Daniel Lai MD Stat [...] please feel free to call me at [phone]. Thank you for the referral of thispatient. Sincerely, Murray Quintana PT, Nishant WOLF, OCS Balance/Gait/Functional tests Balance/Special Test Scores Oswestry Low Back Score: 13 Improvement % Improvement: 90 <Electronically signed by Cert. MARYANN Rasheed PT, OCS> 04/06/25 1052 CC: Dr. Daniel Lai MD ~ JLCortney Signed [facility] Work Phone: 1(232) 913-629905-06-2025 Discharge summary [facility] Physical Therapy [facility] [address] [place] [address]. [address] [place] [id number] / REHABILITATION SERVICES DISCHARGE SUMMARY MR#: [id number] Acct: [id number] Name: GAYATHRI CORREIA Rep #: [id number] : 1945 79 From: Cert. MARYANN Terrell, OCS Referring Dr.: Dr. Daniel Lai MD Stat [...] please feel free to call me at [phone]. Thank you for the referral of thispatient. Sincerely, Murray Quintana, PT, Cert MDT, OCS Balance/Gait/Functional tests Balance/Special Test Scores Oswestry Low Back Score: 13 Improvement % Improvement: 90 04/06/25 1052 CC: Dr. 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 April 06, [...] 11:28am Vaginal mass acute June 07 2:35pm [facility] Work Phone: 1([phone]) 659-291803-28-2025 Evaluation note* Diagnosis Onset Date Resolution Status Admit Date Obesity chronic February 26 1:58pm TERRY (obstructive sleep apnea) chroni c February 26, 2025 1:58pm Secondary pulmonary hypertension chronic February 26, 2025 1:58pm [facility] Work Phone: [phone]) 683-702403-28-2025 Evaluation note* Diagnosis Onset Date Resolution Status [...] cancer chron ic April 06, 2025 8:25am 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 chronic April 06, 2025 8: 25am Lung nodule, multiple chronic April 06, 2025 8:25am TERRY (obstructive sleep apnea) chroni c April 06, 2025 8:25am Osteoporosis chronic April 06 8:25am Paroxysmal atrial fibrillation chron ic April 06, 2025 8:25am Secondary pulmonary hypertension chr onic April 06, 2025 8:25am Paroxysmal atrial flutter resolved April 06, 2025 8:25am [facility] Work Phone: 1(507) 240-828903-28-2025 Evaluation note* Diagnosis Onset Date Resolution Status [...] cancer chron ic April 06, 2025 8:25am detention (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 of anticoagulants chronic April 06, [...] 1:40pm Vaginal mass acute April 30 1:40pm [facility] Work Phone: 1(565) 645-400803-28-2025 Evaluation note* Diagnosis Onset Date Resolution Status [...] cancer chron ic April 06, 2025 8:25am 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 Work Phone: 1([phone]) 836-335503-28-2025 Evaluation note* Diagnosis Onset Date Resolution Status [...] cancer chron ic April 06, 2025 8:25am detention (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 of anticoagulants chronic April 06, [...] mass acute May 25, 2 025 11:28am [facility] Work Phone: 1(103) 358-293103-28-2025 Evaluation note* Diagnosis Onset Date Resolution Status [...] cancer chron ic April 06, 2025 8:25am detention (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 of anticoagulants chronic April 06, [...] 11:28am Vaginal mass acute June 07 2:35pm [facility] Work Phone: [phone] 102-275404-06-2022 Hospital Discharge instructions Patient Education 03/07/2022 07:36:34 5 - [facility] Post-op Instruction 07/2017 (75088) [facility] Post-operative Instructions PLEASE FOLLOW [facility] POST-OP INSTRUCTIONS GIVEN WATCH FOR SIGNS OF INFECTION: call the office ([phone]) if experencing any of the following: (Usually [...] on your follow up instructions. Form: 338A (54217) R: 04/07 Follow Up Care 01/16/2022 08:07:56 With:JOELLE BERRIOS COLT Address: [address] [facility] [address] [place] [address]- [phone] When:03/27/2022 11:50:00 Comments:This is your post-hospital follow-up to discuss your lab results and sleep apnea. With:[facility] Address: When:03/19/2022 11:00:00 Comments:Follow-up as scheduled With:DONNIE ROBERTS PA-C, Orthopedic Address: [facility] [address] [place] [address]- When:03/19/2022 10:15:00 Comments:Follow-up as scheduled [facility] Evaluation + Plan note Future Appointments [facility] Evaluihzws note* Diagnosis Onset Date Resolution Status History of right breast cancer acute Lung nodule, multiple chroni c Encounter for education acut e Breast cancer, right breast chronic Lung nodule, multiple chroni c Encounter for pre-operative cardiovascular clearance acute Hyperlipidemia acute Essential (primary) hypertension chronic Paroxysmal atrial fibrillation chronic [facility] Work Phone: Evaluation note* Diagnosis Onset Date Resolution Status Encounter for pre-operative cardiovascular clearance acute Hyperlipidemia acute Essential (primary) hypertension chronic Paroxysmal atrial fibrillation chronic Dyspnea acute [facility] Work Phone: Evaluation note* Diagnosis Onset Date Resolution Status Encounter for pre-operative cardiovascular clearance acute Hyperlipidemia acute Essential (primary) hypertension chronic Paroxysmal atrial fibrillation chronic Dyspnea acute Shortness of breath noneacti ve [facility] Work Phone: Evaluation note* Diagnosis Onset Date Resolution Status Dyspnea acute Shortness of breath noneacti ve [facility] Work Phone: Evaluation note* Diagnosis Onset Date Resolution Status Dyspnea acute Shortness of breath noneacti ve History of right breast cancer acute Lung nodule, multiple chroni c [facility] Work Phone: Evaluation note* Diagnosis Onset Date Resolution Status Dyspnea acute Shortness of breath noneacti ve History of right breast cancer acute Lung nodule, multiple chroni c TERRY (obstructive sleep apnea) acute Secondary pulmonary hypertension acute Paroxysmal atrial fibrillation [facility] Work Phone: Evaluation note* Diagnosis Onset Date Resolution Status History of right breast cancer acute Lung nodule, multiple chroni c TERRY (obstructive sleep apnea) acute Paroxysmal atrial fibrillation chronic Secondary pulmonary hypertension chronic Hyperlipidemia acute Essential (primary) hypertension chronic Paroxysmal atrial fibrillation [facility] Work Phone: Evaluation note* Diagnosis Onset Date Resolution Status TERRY (obstructive sleep apnea) acute Paroxysmal atrial fibrillation chronic Secondary pulmonary hypertension chronic Hyperlipidemia acute Essential (primary) hypertension chronic Paroxysmal atrial fibrillation chronic History of right breast cancer acute Osteoporosis acute Lung nodule, multiple chroni c [facility] Work Phone: Evaluation note* Diagnosis Onset Date Resolution Status Hyperlipidemia acute Essential (primary) hypertension chronic Paroxysmal atrial fibrillation chronic TERRY (obstructive sleep apnea) acute Paroxysmal atrial fibrillation chronic Secondary pulmonary hypertension [facility] Work Phone: Evaluation note* Diagnosis Onset Date Resolution Status Osteoporosis acute History of right breast cancer chronic Lung nodule, multiple chroni c Breast cancer, right breast chronic Lung nodule, multiple chroni c [facility] Work Phone: Evaluation note* Diagnosis Onset Date Resolution Status Osteoporosis acute History of right breast cancer chronic Lung nodule, multiple chroni c Breast cancer, right breast chronic Lung nodule, multiple chroni c Obesity chronic TERRY (obstructive sleep apnea) chronic Secondary pulmonary hypertension chronic Paroxysmal atrial flutter re solved [facility] Work Phone: Evaluation note* Diagnosis Onset Date Resolution Status Osteoporosis acute History of right breast cancer chronic Lung nodule, multiple chroni c Breast cancer, right breast chronic Lung nodule, multiple chroni c Obesity chronic TERRY (obstructive sleep apnea) chronic Secondary pulmonary hypertension chronic Paroxysmal atrial flutter re solved Hyperlipidemia acute Essential (primary) hypertension chronic Paroxysmal atrial fibrillation [facility] Work Phone: Hospital course Narrative No data available for this section [facility] Hospital Discharge instructions No data available for this section [facility] Hospital Discharge instructions Additional Instructions Please follow-up with your PCP. Return for any worsening syncope, chest pain, nausea or vomiting.[facility] Work Phone: Progress note No data available for this section [facility] Progress note Author Josue Leal [facility] Note Date/Time September 14, 2025 2 :41pm [facility] [address] [place] [address]. [place] [address] OFFICE VISIT Date of Service: 09/14/25 1414 MR#: [id number] Acct: [id number] Name: GAYATHRI CORREIA Rep #: [id number] : 1945 From: Josue Leal MD Age/Sex: 80/F Location: [facility] [place] Status: Signed HPI Subjective Date of Service 09/14/25 Chief Complaint F/u for R breast cancer. History of Present Illness 80 y.o.woman presented with abnormal mammogram on 02/25/2019 showed 1.3 cm upper outer quadrant mass in the right breast. She had ultrasound-guided biopsy of right breast on 03/05/2019. 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 She had a rightbreast lumpectomy and sentinel node biopsy on 03/17/2019. Pathology showed Invasive ductal carcinoma with focal mucinous features, tumor size 2cm, grade 2,[place] node 1 is negative. Staging pT1c pN0. CT c/a/p on 03/31/2019 showed non-specific nodules, calcification in spleen. Bone scan on 04/03/2019 no metastatic disease. Bone density on 02/25/2019 showed Osteoporosis. She received adjuvant Radiation therapy from 04/29/2019-05/20/2019. She started Adjuvant Tamoxifen on 06/09/2019. CT chest on 06/06/2020 showed stable nodules. CTA on 2showed stable lung nodules. Bone density on 08/21/22 showed worsening osteoporosis. Remains on Tamoxifen. Also on Reclast for osteoporosis. Comes for follow up. Feels well. 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 Paroxysmal atrial fibrillation [...] type: does not use additional social history: Intake Vital Signs 03/22/25 13:36 09/14/25 14:14 Height 4 ft 10 in 4 ft 10 in Weight: 88.025 kg BMI 40.5 BP 109/69 Blood Pressure Location Lt brachial Position Sitting Respiration 18 Pulse 74 Pulse Source Monitor Temp 98.6 F Temperature Source Temporal Artery Pulse Oximetry (%) 96 Oxygen Delivery Method room air Intake Accompanied by: Self Is patient in pain?: No Allergies No Known Allergies Allergy (Verified 09/14/25 14:18) Medications ?Medication ?Instructions ?Recorded ?Confirmed ?Type pdlazzsk-fntb-hyir 8 mg-folic 400 1 ea PO DAILY supple ment 03/02/17 09/14/25 History mcg-K 50 mcg-lutein 300 mcg tablet gabapentin 300 mg capsule 300 mg PO BID pain 30 days # 90 caps 12/24/18 09/14/25 History coenzyme Q10 100 mg capsule 100 mg PO DAILY 08/09/21 1 History (Q-Sorb Co Q-10) melatonin 3 mg tablet 10 mg PO QHS sleep 02/07/22 09/14/25 History acetaminophen 500 mg tablet 1,000 mg PO ONCE 11/09/22 09/14/25 History calcium carbonate (Calcium 600) 600 mg PO BID 11/09/22 09/14/25 History cholecalciferol (vitamin D3) 50 50 mcg PO BID 11/09/22 09/14/25 History mcg (2,000 unit) capsule pyridoxine (vitamin B6) 100 mg 100 mg PO DAILY supplem ent 11/09/22 09/14/25 History tablet escitalopram oxalate 10 mg tablet 10 mg PO QDAY 09/14/25 History furosemide 40 mg tablet 40 mg PO DAILY #90 tabs 04/08/2609/14/25 Rx metoprolol succinate 25 mg 25 mg PO .COMPLEX afib #180 tabs 03/15/25 09/14/25 Rx tablet,extended release 24 hr atorvastatin 10 mg tablet 10 mg PO DAILY #90 tabs 04/12/2609/14/25 Rx losartan 100 mg tablet 100 mg PO DAILY #90 tabs 09/14/25 Rx metoprolol tartrate 25 mg tablet 25 mg PO .COMPLEX PRN rapid HR #10 05/18/25 09/14/25 Rx tabs tamoxifen 20 mg tablet 20 mg PO DAILY #90 TABLETS 0 07/23/25 09/14/25 Rx warfarin 3 mg tablet 3 mg PO .COMPLEX #90 TABLETS 09/08/25 09/14/25 Rx Have you fallen in the past year?: Yes Central Venous Access Central Venous Access: No Exam Physical Exam Narrative Using a cane Const no apparent distress General Appearance: comfortable HEENT normocephalic Eyes conjunctivae normal and no scleral icterus Lymph Lymphatic: no lymphadenopathy noted Chest Chest Narrative: Declined breast exam. Resp normal respiratory effort, no use of accessory muscles and clear to auscultationbilaterally Cardio regular rate, regular rhythm, S1 normal heart sound and S2 normal heart sound GI normal to inspection, nondistended, normoactive bowel sounds Back/Spine Thoracic Spine / Upper Back: Negative for thoracic spinal tenderness Lumbar Spine / Lower Back: Negative for lumbar spinal tenderness Extremity no clubbing, cyanosis or edema Skin no rashes or lesions noted Neuro oriented x3, CN's II-XII intact bilaterally and moves all extremities Psych mental status grossly normal Coding Level of Care Code Off vis,est,level 4 Exam Problem Focused Diagnoses History of right breast cancer Z85.3 Lung nodule, multiple R91.8 Age-related osteoporosis without current pathological fracture M81.0 Osteoporosis type: age-related Presence of current pathological fracture: without current pathological fracture Assessment and Plan Assessment and Plan (1) History of right breast cancer: Status: Chronic Comment: Right Breast Cancer stage IA(pT1c pN0 M0), ER/TN positive, Her2 negative on adjuvant Tamoxifen. Tumor size 2cm, Lymph nodes negative. S/P Right breast lumpectomy and sentinel node biopsy. Finished Adjuvant Radiation therapy on 05/20/2019. Started Adjuvant Tamoxifen on 06/09/2020. CT 06/13/2021 shows non specific lung nodules which are stable. Comes for follow up. Labs reviewed, within normal limits. No evidence of disease clinically Plan: To continue Tamoxifen 20mg daily. (2) Lung nodule, multiple: Status: Chronic Comment: Clinically stable for 2 yrs, Plan: To continue observation, will not repeat CT chest unless there are new problems. (3) Osteoporosis: Status: Chronic Qualifiers: Osteoporosis type: age-related Presence of current pathological fracture: without current pathological fracture Qualified Code(s): M81.0 - Age-related osteoporosis without current pathological fracture Plan: To get Reclast in March 2026. Plan Details Follow Up: 6 Months Clinical Quality Measures Falls Risk Screening/Assistive Devices Have you fallen in the past year?: Yes 09/14/25 1441 <Electronically signed by Josue Rivera> Date _ Josue Leal MD [facility] Signature: Date (if applicable) CC: ~ [facility] Work Phone: Reason for referral (narrative)No reason for referral information [facility] Work Phone: Chief Complaint and Reason for Visit Chief Complaint S/O, INR-FINGERSTICK PRIMARY OSTEOARTHRITIS OF LT SHOULDER 6MO LABS ONC/HEM LEFT SHOULDER PRE OP S/O, INR-FINGERSTICK 6 M FU [id number] ORDER FROM [facility] 02/08 Reason for Visit History of right zoya ast cancer Lung nodule, multiple Encounter for education Breast cancer, right breast Lung nodule, multiple Encounter for pre-operative cardiovascular clearance Hyperlipidemia Essential (primary) hypertension Paroxysmal atrial fibrillation Chief Complaint PRIMARY OSTEOARTHRIT IS OF LT SHOULDER 6MO LABS ONC/HEM LEFT SHOULDER PRE OP S/O, INR-FINGERSTICK 6 M FU [id number] ORDER FROM [facility] 02/08 LABS AND XRAY- ANEMIA, SHORTNESS OF BREATH SOB SOB Shortness of breath [id number] ORDER FROM [facility] 02/08 Reason for Visit History of right zoya ast cancer Lung nodule, multiple Encounter for education Breast cancer, right breast Lung nodule, multiple Encounter for pre-operative cardiovascular clearance Hyperlipidemia Essential (primary) hypertension Paroxysmal atrial fibrillation Chief Complaint 6MO LABS ONC/HEM LEFT SHOULDER PRE OP S/O, INR-FINGERSTICK 6 M FU [id number] ORDER FROM [facility] 02/08 LABS AND XRAY- ANEMIA, SHORTNESS OF BREATH SOB SOB Shortness of breath [id number] ORDER FROM [facility] 02/08 Reason for Visit History of right zoya ast cancer Lung nodule, multiple Encounter for education Breast cancer, right breast Lung nodule, multiple Encounter for pre-operative cardiovascular clearance Hyperlipidemia Essential (primary) hypertension Paroxysmal atrial fibrillation Chief Complaint LEFT SHOULDER PRE OP S/O, INR-FINGERSTICK 6 M FU [id number] ORDER FROM [facility] 02/08 LABS AND XRAY- ANEMIA, SHORTNESS OF BREATH SOB SOB Shortness of breath [id number] ORDER FROM [facility] 02/08 INR-FINGERSTICK Shortness of breath Reason for Visit Encounter for pre-op erative cardiovascular clearance Hyperlipidemia Essential (primary) hypertension Paroxysmal atrial fibrillation Dyspnea Chief Complaint LEFT SHOULDER PRE OP S/O, INR-FINGERSTICK 6 M FU [id number] ORDER FROM [facility] 02/08 LABS AND XRAY- ANEMIA, SHORTNESS OF BREATH SOB SOB Shortness of breath [id number] ORDER FROM [facility] 02/08 INR-FINGERSTICK Shortness of breath SOB Reason for Visit Encounter for pre-op erative cardiovascular clearance Hyperlipidemia Essential (primary) hypertension Paroxysmal atrial fibrillation Dyspnea Chief Complaint S/O, INR-FINGERSTICK 6 M FU [id number] ORDER FROM [facility] 02/08 LABS AND XRAY- ANEMIA, SHORTNESS OF BREATH SOB SOB Shortness of breath [id number] ORDER FROM [facility] 02/08 INR-FINGERSTICK Shortness of breath SOB DYSPENA DYSPENA TERRY Reason for Visit Encounter for pre-op erative cardiovascular clearance Hyperlipidemia Essential (primary) hypertension Paroxysmal atrial fibrillation Dyspnea Shortness of breath Chief Complaint LABS AND XRAY- ANEMI A, SHORTNESS OF BREATH SOB SOB Shortness of breath [id number] ORDER FROM [facility] 02/08 INR-FINGERSTICK Shortness of breath SOB DYSPENA DYSPENA TERRY INR-FINGERSTICK SCREENING Reason for Visit Dyspnea Shortness of breath Chief Complaint LABS AND XRAY- ANEMI A, SHORTNESS OF BREATH SOB SOB Shortness of breath [id number] ORDER FROM [facility] 02/08 INR-FINGERSTICK Shortness [...] right breast cancer April 06, 2025 8:25am 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 [facility] April 30, 2025 1:40pm Chief Complaint Admit [...] m labial lysis of adhesions remove vag. [facility] April 30, 2025 1:40pm CARDOZA, WEAK,HEART RACING [...] right breast cancer April 06, 2025 8:25am detention (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 of anticoagulant s April 06, [...] right breast cancer April 06, 2025 8:25am detention (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 of anticoagulant s April 06, [...] m labial lysis of adhesions remove vag. [facility] April 30, 2025 1:40pm CARDOZA, WEAK,HEART RACING [...] m labial lysis of adhesions remove vag. 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 06, [...] 9:13am Urinary retention August 16, 2025 9:13am Chief Complaint Admit Date 6-9 M FU May 18, 2025 10:4 [...] 2:35pm INR-FINGERSTICK June 25, 2025 2:24 pm 3 month follow up August 16, 2025 9:13am INR-FINGERSTICK August 24, 2025 10:23am 6 M FU September 01, 2025 2: 06pm Reason for Visit Admit Date Dilated aortic root May 18, 2025 10:4 9am Hyperlipidemia May 18, 2025 10:4 9am Essential (primary) hypertension May 182024 10:49am Paroxysmal atrial fibrillation May 10:49am Postmenopausal bleeding May 25, 2025 11:28am Vaginal mass May 25, 2025 11:2 8am Vaginal mass June 07, 2025 2:35p m Constipation August 16, 2025 9:13am Urge incontinence August 16, 2025 9:13am Urinary retention August 16, 2025 9:13am Obesity September 01, 2025 2: 06pm TERRY (obstructive sleep apnea) September 2:06pm Secondary pulmonary hypertension September 01, 2025 2:06pm Chief Complaint Admit Date 2 wk labial lysys adhesions remove vag. mass June 07, 2025 2:35pm INR-FINGERSTICK June 25, 2025 2:24 pm 3 month follow up August 16, 2025 9:13am INR-FINGERSTICK August 24, 2025 10:23am 6 M FU September 01, 2025 2: 06pm 6MO LABS September 14, 2025 1 :01pm ONC/HEM September 14, 2025 1 :15pm Reason for Visit Admit Date Vaginal mass June 07, 2025 2:35p m Constipation August 16, 2025 9:13am Urge incontinence August 16, 2025 9:13am Urinary retention August 16, 2025 9:13am Obesity September 01, 2025 2: 06pm TERRY (obstructive sleep apnea) September 2:06pm Secondary pulmonary hypertension September 01, 2025 2:06pm History of right breast cancer September [id number] 1:01pm Lung nodule, multiple September 14, 2025 1:01pm Osteoporosis September 14, 2025 1 :01pm Breast cancer, right breast September 1:15pm Lung nodule, multiple September 14, 2025 1:15pm Encounter for education September 14 1:15pm Family History No Family History Records Found Relationship Condition Age at Onset Recorded Date/T angel luis sister Cerebrovascular accident (CVA) Unknown father Coronary artery disease Unknown Hypertension Unknown mother Hypertension Unknown Coronary artery disease Unknown Advance Directives No Advanced Directives Records Found Advance Directive Response Recorded Date/ Time Living Will No March 26, 2020 2:03pm Power of Barrel Planer No March 26 2:03pm Advance Directive Response Recorded Date/ Time Name of Medical Power of Barrel Planer Gunjan Alcarazo use September 07, 2022 5:42pm Living Will Yes September 07 5:42pm Power of Barrel Planer Yes September 07 5:42pm Advance Directive Response Recorded Date/ Time Name of Medical Power of Barrel Planer Mil-anuel Allo use September 07, 2022 4:42pm Living Will Yes September 07 4:42pm Power of Barrel Planer Yes September 07 4:42pm Advance Directive Response Recorded Date/ Time Living Will Yes September 07 5:42pm Power of Barrel Planer Yes September 07 5:42pm Advance Directive Response Recorded Date/ Time Living Will Yes September 07 4:42pm Power of Barrel Planer Yes September 07 4:42pm Advance Directive Response Recorded Date/ Time Living Will Yes September 07 5:42pm Do you have a Healthcare Power of Barrel Planer? Yes September 07, 2022 5:42pm Living Will Yes November 01 3:03am Do you have a Healthcare Power of Barrel Planer? Yes November 01, 2024 3:03am Advance Directive Response Recorded Date/ Time Living Will Yes September 07 5:42pm Do you have a Healthcare Power of Barrel Planer? Yes September 07, 2022 5:42pm Living Will Yes August 20, 2024 12:32pm Do you have a Healthcare Power of Barrel Planer? Yes August 20, 2024 12:32pm Living Will No March 26, 2020 2:03pm Do you have a Healthcare Power of Barrel Planer? No March 26, 2020 2:03pm Living Will Yes November 01 3:03am Do you have a Healthcare Power of Barrel Planer? Yes November 01, 2024 3:03am Advance Directive Response Recorded Date/ Time Living Will Yes September 07 5:42pm Do you have a Healthcare Power of Barrel Planer? Yes September 07, 2022 5:42pm Living Will Yes August 20, 2024 12:32pm Do you have a Healthcare Power of Barrel Planer? Yes August 20, 2024 12:32pm Living Will No March 26, 2020 2:03pm Do you have a Healthcare Power of Barrel Planer? No March 26, 2020 2:03pm Living Will Yes November 01 3:03am Do you have a Healthcare Power of Barrel Planer? Yes November 01, 2024 3:03am Do you have a Healthcare Power of Barrel Planer? Yes May 01, 2025 2:57pm Name of Medical Power of Barrel Planer Anuel May 01, 2025 2:57pm Advance Directive Response Recorded Date/ Time Living Will Yes September 07 5:42pm Do you have a Healthcare Power of Barrel Planer? Yes September 07, 2022 5:42pm Living Will Yes August 20, 2024 12:32pm Do you have a Healthcare Power of Barrel Planer? Yes August 20, 2024 12:32pm Living Will No March 26, 2020 2:03pm Do you have a Healthcare Power of Barrel Planer? No March 26, 2020 2:03pm Living Will Yes November 01 3:03am Do you have a Healthcare Power of Barrel Planer? Yes November 01, 2024 3:03am Do you have a Healthcare Power of Barrel Planer? Yes April 28, 2025 1:21pm Do you have a Healthcare Power of Barrel Planer? Yes May 01, 2025 2:57pm Name of Medical Power of Barrel Planer Anuel May 01, 2025 2:57pm Advance Directive Response Recorded Date/ Time Living Will Yes August 20, 2024 12:32pm Do you have a Healthcare Power of Barrel Planer? Yes August 20, 2024 12:32pm Living Will No March 26, 2020 2:03pm Do you have a Healthcare Power of Barrel Planer? No March 26, 2020 2:03pm Living Will Yes March 01, 2025 11:08pm Do you have a Healthcare Power of Barrel Planer? Yes March 01, 2025 11:08pm Do you have a Healthcare Power of Barrel Planer? Yes April 28, 2025 1:21pm Do you have a Healthcare Power of Barrel Planer? Yes May 01, 2025 2:57pm Name of Medical Power of Barrel Planer Anuel May 01, 2025 2:57pm Advance Directive Response Recorded Date/ Time Living Will Yes March 01, 2025 11:08pm Do you have a Healthcare Power of Barrel Planer? Yes March 01, 2025 11:08pm Do you have a Healthcare Power of Barrel Planer? Yes April 28, 2025 1:21pm Do you have a Healthcare Power of Barrel Planer? Yes May 01, 2025 2:57pm Name of Medical Power of Barrel Planer Anuel May 01, 2025 2:57pm Advance Directive Response Recorded Date/ Time Living Will Yes March 01, 2025 11:08pm Do you have a Healthcare Power of Barrel Planer? Yes March 01, 2025 11:08pm Do you have a Healthcare Power of Barrel Planer? Yes April 28, 2025 1:21pm Advance Directive Response Recorded Date/ Time Living Will No March 26, 2020 2:03pm Do you have a Healthcare Power of Barrel Planer? No March 26, 2020 2:03pm Living Will Yes March 01, 2025 11:08pm Do you have a Healthcare Power of Barrel Planer? Yes March 01, 2025 11:08pm Summary Purpose Additional Source Comments Goals (unrecognized section and content) Goals may be documented in a n alternate section Care Team (unrecognized sect ion and content) Team Status: Active Member Role Status Dates Dr. Daniel Lai MD Primary Care Provider Acti ve Team Status: Inactive Member Role Status Dates Dr. Daniel aLi MD Primary [...] 2025 End: February 24, 2025 Joanna Saavedra SUPPLY CHAIN ANALYST, SUPPLY CHAIN ANALYST-C Other Provider Active St art: February 24, 2025 End: February 24, 2025 Chapo Neves SUPPLY CHAIN ANALYST, SUPPLY CHAIN ANALYST-C Other Provider Active Sta rt: February 24, [...] 2025 End: February 26, 2025 Brandie Doran SUPPLY CHAIN ANALYST, SUPPLY CHAIN ANALYST-C Attending Provider Active Start: February 26, 2025 [...] Provider, Refe rring Provider Active Chapo Neves SUPPLY CHAIN ANALYST, SUPPLY CHAIN ANALYST-C Attending Provider Active Team Status: Inactive Member [...] Provider, Referring Pro vider Active Joanna Saavedra SUPPLY CHAIN ANALYST, SUPPLY CHAIN ANALYST-C Other Provider Active Chapo Neves SUPPLY CHAIN ANALYST, SUPPLY CHAIN ANALYST-C Other Provider Active Dr. Josue Leal MD [...] Provider, Referring Pro vider Active Joanna Saavedra SUPPLY CHAIN ANALYST, SUPPLY CHAIN ANALYST-C Other Provider Active Chapo Neves SUPPLY CHAIN ANALYST, SUPPLY CHAIN ANALYST-C Other Provider Active Dr. Josue Leal MD [...] Provider, Refe rring Provider Active Brandie Doran SUPPLY CHAIN ANALYST, SUPPLY CHAIN ANALYST-C Attending Provider Active Team Status: Active Member [...] Status: Inactive Member Role Status Dates Dr. Dainel Lai MD Primary Care Provider, Ref erring [...] Provider, Referring Pro vider Active Joanna Saavedra SUPPLY CHAIN ANALYST, SUPPLY CHAIN ANALYST-C Other Provider Active Chapo Neves SUPPLY CHAIN ANALYST, SUPPLY CHAIN ANALYST-C Other Provider Active Dr. Josue Leal MD [...] 2025 End: May 18, 2025 Brandie Doran SUPPLY CHAIN ANALYST, SUPPLY CHAIN ANALYST-C Attending Provider Active Start: May 18, 2025 End: May 18, 2025 Brandie Doran SUPPLY CHAIN ANALYST, SUPPLY CHAIN ANALYST-C Referring Provider Active Start: May 18, 2025 End: May 18, 2025 Team Status: Active Member Role Status Dates Dr. Daniel Lai MD Primary Care Provider Acti ve Start: May 21, 2025 Brandie Doran SUPPLY CHAIN ANALYST, SUPPLY CHAIN ANALYST-C Referring Provider Active Start: May 21, 2025 Brandie Doran SUPPLY CHAIN ANALYST, SUPPLY CHAIN ANALYST-C Other Provider Active Start: May 21, 2025 [...] 2025 End: February 24, 2025 Joanna Saavedra SUPPLY CHAIN ANALYST, SUPPLY CHAIN ANALYST-C Other Provider Active St art: February 24, 2025 End: February 24, 2025 Chapo Neves SUPPLY CHAIN ANALYST, SUPPLY CHAIN ANALYST-C Other Provider Active Sta rt: February 24, [...] 2025 End: February 26, 2025 Brandie Doran SUPPLY CHAIN ANALYST, SUPPLY CHAIN ANALYST-C Attending Provider Active Start: February 26, 2025 [...] 2025 End: May 18, 2025 Brandie Doran SUPPLY CHAIN ANALYST, SUPPLY CHAIN ANALYST-C Attending Provider Active Start: May 18, 2025 End: May 18, 2025 Brandie Doran SUPPLY CHAIN ANALYST, SUPPLY CHAIN ANALYST-C Referring Provider Active Start: May 18, 2025 End: May 18, 2025 Team Status: Active Member Role/Relationship Status Dates Dr. Daniel Lai MD Primary Care Provider Acti ve Start: May 21, 2025 Brandie Doran SUPPLY CHAIN ANALYST, SUPPLY CHAIN ANALYST-C Referring Provider Active Start: May 21, 2025 Brandie Doran SUPPLY CHAIN ANALYST, SUPPLY CHAIN ANALYST-C Other Provider Active Start: May 21, 2025 [...] 2025 End: May 18, 2025 Brandie Doran SUPPLY CHAIN ANALYST, SUPPLY CHAIN ANALYST-C Attending Provider Active Start: May 18, 2025 End: May 18, 2025 Brandie Doran SUPPLY CHAIN ANALYST, SUPPLY CHAIN ANALYST-C Referring Provider Active Start: May 18, 2025 End: May 18, 2025 Team Status: Active Member Role/Relationship Status Dates Dr. Daniel Lai MD Primary Care Provider Acti ve Start: May 21, 2025 Brandie Doran SUPPLY CHAIN ANALYST, SUPPLY CHAIN ANALYST-C Referring Provider Active Start: May 21, 2025 Brandie Doran SUPPLY CHAIN ANALYST, SUPPLY CHAIN ANALYST-C Other Provider Active Start: May 21, 2025 [...] 2025 End: July 02, 2025 Joanna Saavedra SUPPLY CHAIN ANALYST, SUPPLY CHAIN ANALYST-C Other Provider Active St art: June 25, 2025 End: July 02, 2025 Chapo Neves SUPPLY CHAIN ANALYST, SUPPLY CHAIN ANALYST-C Other Provider Active Sta rt: June 25, [...] 2025 End: May 18, 2025 Brandie Doran SUPPLY CHAIN ANALYST, SUPPLY CHAIN ANALYST-C Attending Provider Active Start: May 18, 2025 End: May 18, 2025 Brandie Doran SUPPLY CHAIN ANALYST, SUPPLY CHAIN ANALYST-C Referring Provider Active Start: May 18, 2025 End: May 18, 2025 Team Status: Active Member Role/Relationship Status Dates Dr. Daniel Lai MD Primary Care Provider Acti ve Start: May 21, 2025 Brandie Doran SUPPLY CHAIN ANALYST, SUPPLY CHAIN ANALYST-C Referring Provider Active Start: May 21, 2025 Brandie Doran SUPPLY CHAIN ANALYST, SUPPLY CHAIN ANALYST-C Other Provider Active Start: May 21, 2025 [...] 2025 End: July 02, 2025 Joanna Saavedra SUPPLY CHAIN ANALYST, SUPPLY CHAIN ANALYST-C Other Provider Active St art: June 25, 2025 End: July 02, 2025 Chapo Neves SUPPLY CHAIN ANALYST, SUPPLY CHAIN ANALYST-C Other Provider Active Sta rt: June 25, [...] Active S tart: August 04, 2025 Joanna Zimmerly SUPPLY CHAIN ANALYST, SUPPLY CHAIN ANALYST-C Other Provider Active St art: August 04, 2025 Chapo Neves SUPPLY CHAIN ANALYST, SUPPLY CHAIN ANALYST-C Other Provider Active Sta rt: August 04, [...] August 16, 2025 End: August 16, 2025 Team Status: Active Member Role/Relationship Status Dates Dr. Daniel Lai MD Primary care physician Act rudy Team Status: Inactive Member Role/Relationship Status Dates Dr. Daniel Lai MD Primary care physician Act rudy Start: May 18, 2025 End: May 18, 2025 Dr. Daniel Lai MD Referring Provider Active Start: May 18, 2025 End: May 18, 2025 Luanne LEWIS, PA Attending physician Active Start: May 18, 2025 End: May 18, 2025 Team Status: Inactive Member Role/Relationship Status Dates Dr. Daniel Lai MD Primary care physician Act rudy Start: May 18, 2025 End: May 18, 2025 Brandie Doran SUPPLY CHAIN ANALYST, SUPPLY CHAIN ANALYST-C Attending physician Active Start: May 18, 2025 End: May 18, 2025 Brandie Doran SUPPLY CHAIN ANALYST, SUPPLY CHAIN ANALYST-C Referring Provider Active Start: May 18, 2025 End: May 18, 2025 Team Status: Active Member Role/Relationship Status Dates Dr. Daniel Lai MD Primary care physician Act rudy Start: May 21, 2025 Brandie Doran SUPPLY CHAIN ANALYST, SUPPLY CHAIN ANALYST-C Referring Provider Active Start: May 21, 2025 Brandie Doran SUPPLY CHAIN ANALYST, SUPPLY CHAIN ANALYST-C Nurse Practitioner Active Start: May 21, 2025 Dr. Mauro Parker DO Attending physician Active Start: May 21, 2025 Team Status: Inactive Member Role/Relationship Status Dates Dr. Daniel Lai MD Primary care physician Act rudy Start: May 25, 2025 End: May 25, 2025 Dr. Senait Vande Velde , DO Attending physician Acti ve Start: May 25, 2025 End: May 25, 2025 Dr. Senait Dick DO Referring Provider Activ e Start: May 25, 2025 End: May 25, 2025 Team Status: Active Member Role/Relationship Status Dates Dr. Daniel Lai MD Primary care physician Act rudy Start: May 25, 2025 Dr. Senait Dick DO Attending physician Acti ve Start: May 25, 2025 Dr. Senait Dick DO Referring Provider Activ e Start: May 25, 2025 Dr. Senait Dick , DO Nurse Practitioner Activ e Start: May 25, 2025 Team Status: Inactive Member Role/Relationship Status Dates Dr. Daniel Lai MD Primary care physician Act rudy Start: June 01, 2025 Dr. Jessy Wade MD Attending physician Active Start: June 01, 2025 Team Status: Inactive Member Role/Relationship Status Dates Dr. Daniel Lai MD Primary care physician Act rudy Start: June 07, 2025 End: June 07, 2025 Dr. Daniel Lai MD Referring Provider Active Start: June 07, 2025 End: June 07, 2025 Dr. Senait Dick DO Attending physician Acti ve Start: June 07, 2025 End: June 07, 2025 Team Status: Inactive Member Role/Relationship Status Dates Dr. Daniel Lai MD Primary care physician Act rudy Start: June 25, 2025 End: July 02, 2025 Dr. Juni Epstein MD Attending physician Active Start: June 25, 2025 End: July 02, 2025 Dr. Juni Epstein MD Referring Provider Active S tart: June 25, 2025 End: July 02, 2025 Joanna Saavedra SUPPLY CHAIN ANALYST, SUPPLY CHAIN ANALYST-C Nurse Practitioner Active Start: June 25, 2025 End: July 02, 2025 Chapo Neves SUPPLY CHAIN ANALYST, SUPPLY CHAIN ANALYST-C Nurse Practitioner Active Start: June 25, 2025 End: July 02, 2025 Dr. Josue Leal MD Nurse Practitioner Active S tart: June 25, 2025 End: July 02, 2025 Team Status: Inactive Member Role/Relationship Status Dates Dr. Daniel Lai MD Primary care physician Act rudy Start: August 16, 2025 End: August 16, 2025 Dr. Daniel Lai MD Referring Provider Active Start: August 16, 2025 End: August 16, 2025 Dr. Jessy Wade MD Attending physician Active Start: August 16, 2025 End: August 16, 2025 Team Status: Inactive Member Role/Relationship Status Dates Dr. Daniel Lai MD Primary care physician Act rudy Start: August 24, 2025 End: August 31, 2025 Dr. Juni Epstein MD Attending physician Active Start: August 24, 2025 End: August 31, 2025 Dr. Juni Epstein MD Referring Provider Active S tart: August 24, 2025 End: August 31, 2025 Joanna Saavedra SUPPLY CHAIN ANALYST, SUPPLY CHAIN ANALYST-C Nurse Practitioner Active Start: August 24, 2025 End: August 31, 2025 Chapo Neves SUPPLY CHAIN ANALYST, SUPPLY CHAIN ANALYST-C Nurse Practitioner Active Start: August 24, 2025 End: August 31, 2025 Dr. Josue Leal MD Nurse Practitioner Active S tart: August 24, 2025 End: August 31, 2025 Team Status: Active Member Role/Relationship Status Dates Dr. Daniel Lai MD Primary care physician Act rudy Start: August 25, 2025 Dr. Daniel Lai MD Attending physician Active Start: August 25, 2025 Team Status: Inactive Member Role/Relationship Status Dates Dr. Daniel Lai MD Primary care physician Act rudy Start: September 01, 2025 End: September 01, 2025 Dr. Daniel Lai MD Referring Provider Active Start: September 01, 2025 End: September 01, 2025 Brandie Doran SUPPLY CHAIN ANALYST, SUPPLY CHAIN ANALYST-C Attending physician Active Start: September 01, 2025 End: September 01, 2025 Team Status: Inactive Member Role/Relationship Status Dates Dr. Daniel Lai MD Primary care physician Act rudy Start: August 25, 2025 End: August 25, 2025 Dr. Daniel Lai MD Attending physician Active Start: August 25, 2025 End: August 25, 2025 Team Status: Inactive Member Role/Relationship Status Dates Dr. Daniel Lai MD Primary care physician Act rudy Start: June 01, 2025 Dr. Jessy Wade MD Attending physician Active Start: June 01, 2025 Team Status: Inactive Member Role/Relationship Status Dates Dr. Daniel Lai MD Primary care physician Act rudy Start: June 07, 2025 End: June 07, 2025 Dr. Daniel Lai MD Referring Provider Active Start: June 07, 2025 End: June 07, 2025 Dr. Senait Dick DO Attending physician Acti ve Start: June 07, 2025 End: June 07, 2025 Team Status: Inactive Member Role/Relationship Status Dates Dr. Daniel Lai MD Primary care physician Act rudy Start: June 25, 2025 End: July 02, 2025 Dr. Juni Epstein MD Attending physician Active Start: June 25, 2025 End: July 02, 2025 Dr. Juni Epstein MD Referring Provider Active S tart: June 25, 2025 End: July 02, 2025 Joanna Saavedra SUPPLY CHAIN ANALYST, SUPPLY CHAIN ANALYST-C Nurse Practitioner Active Start: June 25, 2025 End: July 02, 2025 Chapo Neves SUPPLY CHAIN ANALYST, SUPPLY CHAIN ANALYST-C Nurse Practitioner Active Start: June 25, 2025 End: July 02, 2025 Dr. Josue Leal MD Nurse Practitioner Active S tart: June 25, 2025 End: July 02, 2025 Team Status: Inactive Member Role/Relationship Status Dates Dr. Daniel Lai MD Primary care physician Act rudy Start: August 16, 2025 End: August 16, 2025 Dr. Daniel Lai MD Referring Provider Active Start: August 16, 2025 End: August 16, 2025 Dr. Jessy Wade MD Attending physician Active Start: August 16, 2025 End: August 16, 2025 Team Status: Inactive Member Role/Relationship Status Dates Dr. Daniel Lai MD Primary care physician Act rudy Start: August 24, 2025 End: August 31, 2025 Dr. Juni Epstein MD Attending physician Active Start: August 24, 2025 End: August 31, 2025 Dr. Juni Epstein MD Referring Provider Active S tart: August 24, 2025 End: August 31, 2025 Joanna Saavedra SUPPLY CHAIN ANALYST, SUPPLY CHAIN ANALYST-C Nurse Practitioner Active Start: August 24, 2025 End: August 31, 2025 Chapo Neves SUPPLY CHAIN ANALYST, SUPPLY CHAIN ANALYST-C Nurse Practitioner Active Start: August 24, 2025 End: August 31, 2025 Dr. Josue Leal MD Nurse Practitioner Active S tart: August 24, 2025 End: August 31, 2025 Team Status: Inactive Member Role/Relationship Status Dates Dr. Daniel Lai MD Primary care physician Act rudy Start: August 25, 2025 End: August 25, 2025 Dr. Daniel Lai MD Attending physician Active Start: August 25, 2025 End: August 25, 2025 Team Status: Inactive Member Role/Relationship Status Dates Dr. Daniel Lai MD Primary care physician Act rudy Start: September 01, 2025 End: September 01, 2025 Dr. Daniel Lai MD Referring Provider Active Start: September 01, 2025 End: September 01, 2025 Brandie Doran SUPPLY CHAIN ANALYST, SUPPLY CHAIN ANALYST-C Attending physician Active Start: September 01, 2025 End: September 01, 2025 Team Status: Inactive Member Role/Relationship Status Dates Dr. Daniel Lai MD Primary care physician Act rudy Start: September 14, 2025 End: September 14, 2025 Dr. Daniel Lai MD Referring Provider Active Start: September 14, 2025 End: September 14, 2025 Dr. Josue Lela MD Attending physician Active Start: September 14, 2025 End: September 14, 2025 Team Status: Active Member Role/Relationship Status Dates Dr. Daniel Lai MD Primary care physician Act rudy Start: September 14, 2025 Dr. Daniel Lai MD Referring Provider Active Start: September 14, 2025 Dr. Josue Leal MD Attending physician Active Start: September 14, 2025 Dr. Dangelo Verde DO Nurse Practitioner Active Start: September 14, 2025 INFORMATION SOURCE (unrecogn ized section and content) DATE CREATED AUTHOR 05/08/2022 Replaced by [facility] ([place]) DATE CREATED AUTHOR AUTHOR'Manas WARNER ATION 10/14/2025 [facility] FOR RECORDS PERTAINING TO PATIENTS WHO ARE [...] BE BASED ON THE PRIMARY CLINICAL RECORDS. [facility]. provides no warranty or guarantee of the accuracy or completeness of information in this document.
== END | disposition home or self-care (01) ==
LOC: OPBI 12:49
PROVIDERS: PCP Family Medicine; Referring Provider Internal Medicine Medical Oncology; Visit Provider Internal Medicine Medical Oncology
DX: R92.8 Other abnormal and inconclusive findings on diagnostic imaging of breast (principal)
CPT/HCPCS: 76642; 77061; 77065; G0279

== ENCOUNTER → 2025-11-04 | Outpatient (CLI) | payer MEDICARE, SELFPAY ==
[2019-09-15 09:55] VITALS: BMI 42.3
== END | disposition home or self-care (01) ==
LOC: SL 12:10
PROVIDERS: PCP Family Medicine; Referring Provider Nurse Practitioner Acute Care; Visit Provider Nurse Practitioner Acute Care
DX: G47.33 Obstructive sleep apnea (adult) (pediatric) (principal)

== ENCOUNTER → 2025-11-12 | Outpatient (CLI) | payer MEDICARE, SELFPAY ==
[2019-09-15 09:55] VITALS: BMI 42.3
--- NOTE | 2025-11-12 12:19 | PN_ITS ---
Progress Note We were unable to locate the lesion on stereotactic views. I will order an MRI to evaluate the right breast for lesion. If that is identified on MRI I will send her for an MRI guided biopsy. Jono Limon MD Pager: [facility] [address] [place] [address], [address] [place] [phone] Office:
--- NOTE | 2025-11-12 12:19 | PCM.PN.BLA ---
Progress Note We were unable to locate the lesion on stereotactic views. I will order an MRI to evaluate the right breast for lesion. If that is identified on MRI I will send her for an MRI guided biopsy. Jono Limon MD Pager: [facility] [address] [place] [address], [address] [place] [phone] Office:
== END | disposition home or self-care (01) ==
PROVIDERS: PCP Family Medicine; Referring Provider Surgery; Visit Provider Surgery
DX: N63.11 Unspecified lump in the right breast, upper outer quadrant (principal)
CPT/HCPCS: 19081

== ENCOUNTER → 2025-11-19 | Outpatient (CLI) | payer MEDICARE, SELFPAY ==
[2019-09-15 09:55] VITALS: BMI 42.3
--- NOTE | 2025-11-19 14:39 | MRI_ITS ---
PROCEDURE: MRI bilateral breast with and without IV contrast 11/19/2025 REASON FOR EXAM: MICROCALCIFICATIONS RIGHT BREAST TECHNIQUE: Procedure Code: [id number] Modality: MR Procedure: BREAST BILATERAL W/O AND W CONTRAST: 18 mL of Clariscan COMPARISON: Breast ultrasound dated 10/29/2025 and mammogram dated 10/21/2025, 10/18/2025 and 10/15/2024 FINDINGS: TISSUE DENSITY: The breasts are heterogeneously dense, which may obscure small masses. Background Parenchymal Enhancement: Minimal RIGHT Breast: The mass biopsied in the superior outer aspect of the right breast which was shown to represent a malignancy is not well appreciated on the MRI examination. Post biopsy changes are seen in the superior outer aspect of the right breast at the post biopsy site. LEFT Breast: No suspicious mass or non-mass enhancement. Other Findings: No suspicious axillary or internal mammary lymph nodes. Visualized portions of the thoracic and abdominal viscera are unremarkable. MRI/Breast Bilateral W/O and W IMPRESSION: OVERALL FINAL ASSESSMENT BI-RADS 6: KNOWN BIOPSY-PROVEN MALIGNANCY. 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 Surgic al consultation is recommended. Radiation oncology and medical oncology consultation is also recommended. Short-term six -month follow-up mammogram of the right breast is recommended to document stability of the post lumpectomy site. Reading Location: [id number]
== END | disposition home or self-care (01) ==
LOC: MRI 14:37
PROVIDERS: PCP Family Medicine; Referring Provider Surgery; Visit Provider Surgery
DX: R92.0 Mammographic microcalcification found on diagnostic imaging of breast (principal)
CPT/HCPCS: 77049; A9575; A4216; C8908